=== PATIENT | female | born 1955 | race Caucasian/White ===

== ENCOUNTER → 2018-04-29 09:33 | Outpatient (CLI) | payer BC, SELFPAY ==
[2018-04-29 10:19] LABS: Alanine Aminotransferase 25 IU/L (9-52); Albumin 4.6 g/dL (3.5-5.0); Albumin Globulin Ratio 1.6 (1.0-2.8); Alkaline Phosphatase 46 U/L (38-126); Aspartate Aminotransferase 19 IU/L (14-36); BUN Creatinine Ratio 21.7 (6-22); Bilirubin Total 0.5 mg/dL (0.2-1.3); Blood Urea Nitrogen 13 mg/dL (7-17); Calcium 9.8 mg/dL (8.4-10.2); Carbon Dioxide 26 mmol/L (22-32); Chloride 99 mmol/L (98-107); Estimated Glomerular Filt Rate > 60.0 mL/min (>60); Globulin 2.9 g/dL (1.7-4.1); Glucose 151 mg/dL (80-110); HEMOLYSIS < 15 (0-50); Potassium 4.6 mmol/L (3.4-5.1); Sodium 140 mmol/L (137-145); Total Protein 7.5 g/dL (6.3-8.2)
[2018-04-29 11:34] LABS: Creatinine Urine Random 19.6 mg/dL
[2018-04-29 11:39] LABS: Microalbumi Creatinin Ratio Ur 40.8 ug/mg CR (<30); Microalbumin Urine Random 0.8 mg/dL (0-1.6)
== END ==
PROVIDERS: PCP Internal Medicine; Visit Provider Internal Medicine
DX: E78.2 Mixed hyperlipidemia (principal); E11.9 Type 2 diabetes mellitus without complications
CPT/HCPCS: 36415; 80053; 82043; 82570; 83036

== ENCOUNTER → 2018-10-21 08:41 | Outpatient (CLI) | payer BC, SELFPAY ==
--- NOTE | 2018-10-21 | DI.US.S_ITS ---
PROCEDURE: US ARTERIAL DUPLEX LE BI INDICATIONS: Peripheral vascular disease, unspecified TECHNIQUE: Color and pulse Doppler interrogation was performed of both lower extremity arterial systems, with image documentation. COMPARISON: None. FINDINGS: Normal-appearing, biphasic waveforms are seen throughout. Elevated flow velocities are seen at the level of the common femoral arteries measure 2 37 cm/s on the right and 203 cm/s on the left. The flow velocities are otherwise within normal limits. No focal area of increased flow velocity is seen to suggest a focal stenosis. Antegrade flow is confirmed to the distal aspects of each of the trifurcation vessels. No significant olson scale abnormality is seen. IMPRESSION: Elevated flow velocities can be seen at the level of the common femoral arteries, which are suspicious for inflow stenoses on both sides. Dictated by: Seth Barnett M.D. on 10/21/2018 at 14:11 Approved by: Seth Barnett M.D. on 10/21/2018 at 14:12
== END ==
PROVIDERS: PCP Internal Medicine; Visit Provider Physical Medicine & Rehabilitation
DX: I73.9 Peripheral vascular disease, unspecified (principal)
CPT/HCPCS: 93925

== ENCOUNTER 2018-10-22 08:45 | Outpatient (CLI) | payer BC, SELFPAY ==
[2018-10-22] VITALS (9 sets, daily range): BP systolic 87–139; BP diastolic 40–71; PULSE 79–86; RESP 16–18; TEMP 36.9; O2SAT 95–100
--- NOTE | 2018-10-22 08:46 | DI.RAD.S_ITS ---
PROCEDURE: PAIN L/S TRANSFORAMINAL INJECT INDICATIONS: INTERVERTEBRAL DISC DISPLACEMENT FINDINGS: Fluoroscopic spot filming was performed to verify placement of spinal needles at the L3-L4 level(s), as labeled on the films. Appropriate location(s) of the needle tip(s) was confirmed by injection of iodinated contrast. Dictated by: King Murillo M.D. on 10/22/2018 at 13:24 Approved by: King Murillo M.D. on 10/22/2018 at 13:24
[2018-10-22] MEDS: MIDAZOLAM 5 MG/5 ML VIAL IV (09:38)
[2018-10-22] MEDS: DEXAMETHASONE 10 MG/ML VIAL 20 MG INJ (09:41)
[2018-10-22] MEDS: methylPREDNISolone acetate 80 MG/ML VIAL INJ (09:41)
[2018-10-22] MEDS: IOPAMIDOL 15 ML VIAL 3 ML INJ (09:41)
[2018-10-22] MEDS: BUPIVACAINE 0.25% (PF) VIAL 2 ML INJ (09:41)
--- NOTE | 2018-10-22 09:44 | PC.NURSE ---
ASSISTING PT FROM TABLE AND TRANSPORTING BACK TO POST PROC AREA IN STABLE CONDITION
--- NOTE | 2018-10-22 09:48 | P.PCN_ITS ---
Procedures Date/Time Date of procedure: 10/22/18 Time of procedure: 09:47 General Procedure description: PROVIDER: Vick Blackmon DO Operative Note PREOP DIAGNOSIS 1. FORAMINAL STENOSIS WITH LE SYMPTOMS, POST OP DIAGNOSIS 1. FORAMINAL STENOSIS WITH LE SYMPTOMS, PROCEDURES 1. FLUOROSCOPICALLY GUIDED CONTRAST CONTROLLED TRANSFORAMINAL EPIDURAL STEROID INJECTION - LEFT L3/4 TFESI SURGEON: Vick Blackmon DO INDICATIONS Brittany is referred by Dr. Magana for treatment of Foraminal Stenosis with left LE Symptoms FINDINGS Foraminal Nerve Root Compression secondary to disc disease and facet hypertrophy DESCRIPTION OF PROCEDURE Following denial of allergy and review of potential side effects and complications, including, but not necessarily limited to, infection, allergic reaction, local tissue breakdown, stroke, temporary or permanent nerve injury, paralysis, and possible , the patient indicated that the patient understood and agreed to proceed. An informed consent document was signed by the patient, witnessed by a nurse, and placed in the patient's chart. Additionally, other treatment options including medications, modalities, and physical therapy were reviewed with the patient. After review of previous anaesthesic history and IV conscious sedation the patient was deemed safe to proceed with todays procedure with IV conscious sedation as ASA class II designation. Safety time-out was performed to confirm patient ID, procedure to be performed and site of procedure. IV sedation was accomplished with a combination of 5mg was administered by the RN after DO order , titrated to patient comfort during the course of the procedure while the patient remained responsive to all verbal commands In the prone position following sterile prep and drape of the lumbar region, the left L3/4 posterior neuroforamen was identified fluoroscopically. The skin was anesthetized via a 25-gauge 1.5-inch needle with 1% lidocaine solution. At this point, a 25-gauge 3.5-inch spinal needle was atraumatically introduced and advanced under fluoroscopic guidance through the posterior left L3/4 neuroforamen to approximately the anterior aspect of the canal. Depth was confirmed on lateral view. Following negative aspiration, injection of approximately 1.5 cc of Isovue 200 under live fluoroscopy in the AP view confirmed excellent flow along the nerve root, into the epidural space without vascular or intrathecal uptake observed Radiological data, including multiple fluoroscopic views of the lumbosacral spine, reveal a spinal needle at the left L3/4 posterior neuroforamen. Subsequent views show flow of contrast material flowing superiorly and inferiorly along the nerve root confirming epidural flow. Subsequently, a test dose of 1.5 cc of 1% lidocaine solution was administered and patient was observed for two minutes for signs or symptoms of complications , including abdominal pain, shortness of breath, bilateral upper or lower extremity weakness, nausea and vomiting, prior to steroid injection. At this point, a total of 3 cc or 20 mg of dexamethasone and 80mg Depo medrol was injected without incident. The patient tolerated the procedure well without signs or symptoms of complications prior to transfer to the recovery area continued monitoring without incident. The patient was then transferred to the recovery area where they were observed for an appropriate time after the injection. The patient reported a VAS score of 7 prior to the procedure and a post-procedure VAS of 0. Total Fluoroscopy Time: 24.2 seconds Total Conscious Sedation Time: 24min POST OP INSTRUCTIONS The patient was provided a Pain Log to continue to record their response to the target-specific procedure prior to follow-up visit with their referring physician. Additionally, specific post-injection care instructions and a contact number to our office were provided if concerns arise regarding possible complications associated with the procedure are suspected. Vick Blackmon, Complications: none
--- NOTE | 2018-10-22 10:45 | PC.NURSE ---
Received pt from Stacy Jiang post procedure, pt awake and alert, resumed monitoring. pt able to transfer from W/C to chair with standby assist.
== END 2018-10-22 10:20 ==
LOC: RAD 08:45
PROVIDERS: PCP Internal Medicine; Visit Provider Physical Medicine & Rehabilitation
DX: M48.061 Spinal stenosis, lumbar region without neurogenic claudication (principal); M51.16 Intervertebral disc disorders with radiculopathy, lumbar region
CPT/HCPCS: 64483; 99152; J1040; J1100; J2250

== ENCOUNTER → 2018-11-26 08:44 | Outpatient (CLI) | payer BC, SELFPAY ==
[2018-11-26 10:08] LABS: Alanine Aminotransferase 37 IU/L (9-52); Albumin 4.4 g/dL (3.5-5.0); Albumin Globulin Ratio 1.8 (1.0-2.8); Alkaline Phosphatase 57 U/L (38-126); Aspartate Aminotransferase 25 IU/L (14-36); BUN Creatinine Ratio 25.7 (6-22); Bilirubin Total 0.2 mg/dL (0.2-1.3); Blood Urea Nitrogen 18 mg/dL (7-17); Calcium 9.2 mg/dL (8.4-10.2); Carbon Dioxide 24 mmol/L (22-32); Chloride 104 mmol/L (98-107); Estimated Glomerular Filt Rate > 60.0 mL/min (>60); Globulin 2.5 g/dL (1.7-4.1); Glucose 125 mg/dL (80-110); HEMOLYSIS < 15 (0-50); Potassium 5.1 mmol/L (3.4-5.1); Sodium 140 mmol/L (137-145); Total Protein 6.9 g/dL (6.3-8.2)
[2018-11-26 10:14] LABS: Hemoglobin A1C% w Est Avg Glu 6.8 % (4.0-6.0)
== END ==
PROVIDERS: PCP Internal Medicine; Visit Provider Internal Medicine
DX: E11.9 Type 2 diabetes mellitus without complications (principal); I25.10 Atherosclerotic heart disease of native coronary artery without angina pectoris
CPT/HCPCS: 36415; 80053; 83036

== ENCOUNTER 2018-12-10 09:44 | Outpatient (CLI) | payer BC, SELFPAY ==
[2018-12-10] VITALS (8 sets, daily range): BP systolic 103–158; BP diastolic 58–90; PULSE 76–86; RESP 16–18; TEMP 37.2; O2SAT 98–100
--- NOTE | 2018-12-10 09:45 | DI.RAD.S_ITS ---
PROCEDURE: PAIN L INTERLAMINAR/CAUDAL INJ INDICATIONS: SPINAL STENOSIS FINDINGS: Fluoroscopic spot filming was performed to verify placement of spinal needles at the L3-4 interlaminar level, as labeled on the films. Appropriate location(s) of the needle tip(s) was confirmed by injection of iodinated contrast. IMPRESSION: Successful dorsal interlaminar L3-4 localization for epidural steroid injection. Dictated by: Peña Delatorre M.D. on 12/10/2018 at 12:48 Approved by: Peña Delatorre M.D. on 12/10/2018 at 12:48
[2018-12-10] MEDS: MIDAZOLAM 5 MG/5 ML VIAL IV (10:52)
[2018-12-10] MEDS: IOPAMIDOL 15 ML VIAL 3 ML INJ (10:56)
[2018-12-10] MEDS: methylPREDNISolone acetate 80 MG/ML VIAL INJ (10:56)
[2018-12-10] MEDS: BUPIVACAINE 0.25% (PF) VIAL 2 ML INJ (10:56)
[2018-12-10] MEDS: DEXAMETHASONE 10 MG/ML VIAL 20 MG INJ (10:56)
--- NOTE | 2018-12-10 10:56 | PC.NURSE ---
ASSISTING PT OFF TABLE AND TRANSPORTING TO POST PROC AREA IN STABLE CONDITION
--- NOTE | 2018-12-10 11:05 | P.PCN_ITS ---
Procedures Date/Time Date of procedure: 12/10/18 Time of procedure: 11:03 General Procedure description: POST OP DIAGNOSIS 1. HNP WITH RADICULAR FEATURES, 2. MULTILEVEL CENTRAL STENOSIS, PROCEDURES 1. FLUORSCOPICALLY GUIDED CONTRAST CONTROLLED INTERLAMINAR EPIDURAL STEROID INJECTION - L3/4 PHYSICIAN: Vick Blackmon DO INDICATIONS Brittany is referred by Dr. Brito for treatment of HNP with Left LE symptoms. FINDINGS Multilevel Central Spinal Stenosis with Nerve Root Compression DESCRIPTION OF PROCEDURE Fluoroscopically guided, contrast-controlled L3/4 translaminar epidural steroid injection. Following denial of allergy and review of potential side effects and complications, including, but not necessarily limited to, infection, allergic reaction, local tissue breakdown, temporary as well as permanent nerve injury, paralysis, stroke and possible , the patient indicated that the patient understood and agreed to proceed. An informed consent document was signed by the patient, witnessed by a nurse, and placed in the patient's chart. Additionally, other treatment options including modalities, medications, and physical therapy were reviewed with the patient. After review of previous anaesthesic history and IV conscious sedation the patient was deemed safe to proceed with todays procedure with IV conscious sedation as ASA class II designation. Safety time-out was performed to confirm patient ID, procedure to be performed and site of procedure. IV sedation was accomplished with a combination of 3mg of Versed was administered by the RN after DO order, titrated to patient comfort during the course of the procedure while the patient remained responsive to all verbal commands. In the prone position, following sterile prep and drape of the lumbar region, the L3/4 translaminar space was identified fluoroscopically. The skin was anesthetized via a 25-gauge, 1.5-inch needle with 1% lidocaine solution. At this point, a 22-gauge short bevel spinal needle was atraumatically introduced and advanced under fluoroscopic guidance into the region of the L3/4 translaminar space. Depth was confirmed on lateral view. Radiological data, including multiple fluoroscopic views of the lumbar spine, reveal a spinal needle at the L3/4 translaminar space. Lateral views then show placement of the needle in the epidural space. Subsequent views show contrast material flowing superiorly and inferiorly in the epidural space. No vascular or intrathecal uptake is observed. At this point, using loss of resistance technique with saline and air, the epidural space was entered. This was confirmed following negative aspiration with injection of approximately 1.5 cc of Isovue 200, showing excellent epidural flow without vascular or intrathecal uptake. At this point, 1 cc of 1 % lidocaine solution combined with 3 cc or 20 mg of dexamethasone and 80mg Depo medrol was injected without incident. The patient tolerated the procedure well without signs or symptoms of complications prior to transfer to the recovery area continued monitoring without incident. The patient was then transferred to the recovery area where they were observed for an appropriate period of time after the injection. The patient reported a VAS score of 11 prior to the procedure and a post- procedure VAS of 0. Total Fluoroscopy Time: 11.8 seconds Total Conscious Sedation Time: 24min POST OP INSTRUCTIONS The patient was provided a Pain Log to continue to record their response to the target-specific procedure prior to follow-up visit with their referring physician. Additionally, specific post-injection care instructions and a contact number to our office were provided if concerns arise regarding possible complications associated with the procedure are suspected. Vick Blackmon, Complications: none
--- NOTE | 2018-12-10 11:54 | PC.NURSE ---
pt returned via wheelchair from procedure with Stacy ALEXIS, able to move from W/C to chair standby assist. Resumed monitoring.
== END 2018-12-10 11:25 ==
LOC: RAD 09:44
PROVIDERS: PCP Internal Medicine; Visit Provider Physical Medicine & Rehabilitation
DX: M51.16 Intervertebral disc disorders with radiculopathy, lumbar region (principal); M48.061 Spinal stenosis, lumbar region without neurogenic claudication
CPT/HCPCS: 62323; 99152; J1040; J1100; J2250

== ENCOUNTER → 2019-04-08 11:00 | Outpatient (CLI) | payer BC, SELFPAY ==
--- NOTE | 2019-04-08 | DI.MRI.S_ITS ---
PROCEDURE: MR SHOULDER LT WO CON INDICATIONS: LEFT SHOULDER PAIN LOW BACK PAIN TECHNIQUE: Noncontrast oblique coronal T2 fast spin echo with fat saturation, oblique sagittal T1 spin echo and T2 fast spin echo with fat saturation, axial T1 spin echo and T2 fast spin echo with fat saturation through the shoulder. COMPARISON: None. FINDINGS: Image quality: Excellent. Rotator cuff: Tendinosis and low to moderate grade articular and bursal surface partial-thickness tear involving distal supraspinatus and infraspinatus at their insertion on the greater tuberosity of humeral head is seen extending to musculotendinous junction. There is distal subscapularis tendinosis. Sagittal images demonstrate mild to moderate supraspinatus muscle atrophy. Bones and bursae: No bone marrow contusions or fractures. Mild to moderate acromioclavicular joint and glenohumeral joint osteoarthritis is seen. Downward osteophyte formation at the acromioclavicular joint is seen depressing on musculotendinous junction of supraspinatus.. No pathologic subacromial-subdeltoid or subcoracoid bursal fluid is present. Capsule and soft tissues: In the absence of intra-articular contrast, there is suggestion of superior labral tear at 11 to 1:00 position. Degenerative changes throughout labrum is noted. The glenohumeral ligaments appear intact. The long head of the biceps tendon demonstrates normal location and morphology. The rotator interval appears normal, without fibrosis. The coracohumeral ligament is normal in thickness. IMPRESSION: 1. [id number] acromioclavicular joint and glenohumeral joint osteoarthritis. 2. Tendinosis and low to moderate grade articular and bursal surface partial-thickness tear involving distal supraspinatus and infraspinatus at their insertion on greater tuberosity of humeral head extending to musculotendinous junction. Distal subscapularis tendinosis. Mild to moderate supraspinatus muscle atrophy. 3. Degenerative changes throughout labrum with suggestion of superior labral tear at 11 to 1:00 position. Dictated by: Mc Carey M.D. on 04/08/2019 at 12:43 Approved by: Mc Carey M.D. on 04/08/2019 at 14:37
--- NOTE | 2019-04-08 | DI.MRI.S_ITS ---
PROCEDURE: MR LUMBAR SPINE WO CON INDICATIONS: LEFT SHOULDER PAIN LOW BACK PAIN TECHNIQUE: Noncontrast sagittal T1 spin echo and T2 fast echo, sagittal STIR, axial T1 and T2 fast spin echo through the lumbar spine. In cases with scoliosis, additional coronal T2 fast spin echo may be performed. COMPARISON: [facility], , L-SPINE WITHOUT CONTRAST, 05/13/2017, 7:36. FINDINGS: Image quality: Excellent. Alignment and Curvature: There is straightening of the normal lumbar lordosis. No spondylolisthesis. Bone Marrow: Marrow is of normal overall signal. No acute vertebral body compression fractures. Spinal Cord: Conus medullaris terminates at the T12-L1 level. Visualized cord demonstrates normal signal and size. Paraspinous Soft Tissues: No paravertebral masses. L1-L2: Normal appearance. L2-L3: Decreased intervertebral disc space and disc desiccation signals are seen. There is broad-based disc bulge and bilateral facet arthrosis with hypertrophy of ligamentum flavum causing moderate central canal stenosis and bilateral neuroforaminal narrowing. There is likely compression of exiting left L2 nerve root. L3-L4: Degenerative endplate changes and disc desiccation is seen. Diffuse disc bulge and superimposed left lateral disc herniation is seen with bilateral facet arthrosis. There is mild to moderate central canal stenosis and left worse than right bilateral neuroforaminal narrowing. There is also compression of exiting left L3 nerve root. L4-L5: Disc desiccation signal is seen. Broad-based disc bulge and bilateral facet arthrosis is noted with mild to moderate central canal stenosis and right worse than left bilateral neuroforaminal narrowing. There is compression of bilateral exiting L4 nerve roots. L5-S1: Diffuse disc bulge and bilateral facet arthrosis is seen. No significant canal stenosis or neuroforaminal narrowing. IMPRESSION: 1. Degenerative disc bulge and bilateral facet arthrosis at L2-3 through L5-S1 levels causing mild to moderate central canal stenosis and bilateral neuroforaminal narrowing as described above more prominent at L2-3 and L3-4 levels. 2. No marrow edema. No acute compression fracture or spondylolisthesis. Dictated by: Mc Carey M.D. on 04/08/2019 at 14:39 Approved by: Mc Carey M.D. on 04/08/2019 at 14:41
== END ==
PROVIDERS: PCP Internal Medicine; Referring Provider Orthopaedic Surgery; Visit Provider Orthopaedic Surgery
DX: M54.5 Low back pain (principal); M25.512 Pain in left shoulder; M19.012 Primary osteoarthritis, left shoulder; M75.112 Incomplete rotator cuff tear or rupture of left shoulder, not specified as traumatic; M51.36 Other intervertebral disc degeneration, lumbar region; M48.061 Spinal stenosis, lumbar region without neurogenic claudication; M51.37 Other intervertebral disc degeneration, lumbosacral region; M48.07 Spinal stenosis, lumbosacral region; M47.816 Spondylosis without myelopathy or radiculopathy, lumbar region; M47.817 Spondylosis without myelopathy or radiculopathy, lumbosacral region
CPT/HCPCS: 72148; 73221

== ENCOUNTER → 2019-05-14 09:27 | Outpatient (CLI) | payer BC, SELFPAY ==
[2019-05-14 11:13] LABS: Hemoglobin A1C% w Est Avg Glu 6.7 % (4.0-6.0)
[2019-05-14 11:25] LABS: Alanine Aminotransferase 20 IU/L (9-52); Albumin 4.3 g/dL (3.5-5.0); Albumin Globulin Ratio 1.7 (1.0-2.8); Alkaline Phosphatase 44 U/L (38-126); Aspartate Aminotransferase 24 IU/L (14-36); BUN Creatinine Ratio 16.3 (6-22); Bilirubin Total 0.4 mg/dL (0.2-1.3); Blood Urea Nitrogen 13 mg/dL (7-17); Calcium 9.1 mg/dL (8.4-10.2); Carbon Dioxide 23 mmol/L (22-32); Chloride 104 mmol/L (98-107); Cholesterol 139 mg/dL (140-199); Estimated Glomerular Filt Rate > 60.0 mL/min (>60); Globulin 2.6 g/dL (1.7-4.1); Glucose 136 mg/dL (80-110); HDL Cholesterol 40 mg/dL (40-60); HEMOLYSIS 17 (0-50); LDL Cholesterol Calculated 39 mg/dL (<100); Potassium 5.3 mmol/L (3.4-5.1); Sodium 138 mmol/L (137-145); Total Protein 6.9 g/dL (6.3-8.2); Triglycerides 301 mg/dL (35-150)
== END ==
PROVIDERS: PCP Internal Medicine; Visit Provider Internal Medicine
DX: E11.9 Type 2 diabetes mellitus without complications (principal); E78.2 Mixed hyperlipidemia; I25.10 Atherosclerotic heart disease of native coronary artery without angina pectoris
CPT/HCPCS: 36415; 80053; 80061; 83036

== ENCOUNTER → 2019-06-04 14:21 | Outpatient (CLI) | payer BC, SELFPAY ==
[2019-06-04 15:01] LABS: Add Manual Diff / Slide Review NO; Basophils Absolute Auto 0 /uL (0-100); Basophils Percent Auto 0.4 % (0-2); Eosinophils Absolute Auto 300 /uL (0-450); Hematocrit 34.3 % (36-46); Lymphocytes Absolute Auto 4700 /uL (1100-4500); Lymphocytes Percent Auto 35.9 % (25-40); Mean Corpuscular HGB Conc 32.1 % (30-36); Mean Corpuscular Hemoglobin 29.2 PG (26-34); Mean Corpuscular Volume 90.7 fL (80-100); Monocytes Absolute Auto 800 /uL (0-900); Neutrophils Absolute Auto 7200 /uL (1500-7000); Neutrophils Percent Auto 55.7 % (50-75); Platelet Count 273 X10^3/uL (150-400); Red Blood Cell Count 3.78 X10^6/uL (4.0-5.2); Red Cell Distribution Width 13.3 % (11.6-14.8)
[2019-06-04 15:16] LABS: BUN Creatinine Ratio 27.1 (6-22); Blood Urea Nitrogen 19 mg/dL (7-17); Calcium 9.5 mg/dL (8.4-10.2); Carbon Dioxide 21 mmol/L (22-32); Chloride 105 mmol/L (98-107); Estimated Glomerular Filt Rate > 60.0 mL/min (>60); Glucose 145 mg/dL (80-110); HEMOLYSIS < 15 (0-50); Potassium 5.2 mmol/L (3.4-5.1); Sodium 139 mmol/L (137-145)
== END ==
PROVIDERS: Family Provider Internal Medicine; PCP Internal Medicine; Visit Provider Physician Assistant Medical
DX: Z01.818 Encounter for other preprocedural examination (principal)
CPT/HCPCS: 36415; 80048; 85025; 93005

== ENCOUNTER 2019-06-11 06:11 | Day surgery (SDC) | payer BC, SELFPAY ==
[2019-05-28 12:16] VITALS: BMI 26.8
[2019-06-11] VITALS (7 sets, daily range): BP systolic 100–150; BP diastolic 40–80; PULSE 76–106; RESP 15–22; TEMP 36.2–36.4; O2SAT 94–97; BMI 26.2
[2019-06-11] MEDS: LACTATED RINGERS 1,000 ML 42 ML IV (06:45)
[2019-06-11] MEDS: MIDAZOLAM 2 MG/2 ML VIAL IV (07:43)
[2019-06-11] MEDS: fentaNYL 100 MCG/2 ML INJ 50 MCG IV (07:46)
--- NOTE | 2019-06-11 07:58 | PM.PREOP ---
Pre-operative Note Interval Note History & Physical reviewed/Exam performed by Physician: Yes Changes to H&P: No
[2019-06-11] MEDS: CEFAZOLIN 2 GM/100 ML FROZ.PIGGY IV (08:00)
--- NOTE | 2019-06-11 08:00 | SUR.PREOP ---
Block start time [0740] . Monitoring initiated and maintained throughout procedure. Oxygen and medications given per anesthesiologist instructions. Patient remained stable throughout procedure, no adverse reactions noted. Block end time [0753]. Pt to OR in stable condition.
--- NOTE | 2019-06-11 08:38 | SUR.OPER ---
Beach chair with Shivani/Shiva shoulder positioner. Lower body on padded OR bed. Head in foam padded head cradle, secured with straps. Non-operative arm secured <90 degrees abduction. Pillow under knees. Safety belt at thigh. Cloth tape over blanket over lower legs.
[2019-06-11] MEDS: BUPIVACAINE 0.5% W/ EPI (PF) VIAL 30 ML INJ (08:50)
[2019-06-11] MEDS: SODIUM CHLORIDE IRRIG SOLUTION 3,000 ML, EPINEPHrine 1 MG IRR (08:54)
[2019-06-11] MEDS: INSULIN ASPART 100 UNIT/ML 10ML VIAL SUBCUT (10:19)
--- NOTE | 2019-06-11 10:20 | PM.OP.1 ---
Operative Date/Time/Diagnoses Date of procedure: 06/11/19 Time of procedure: 08:00 Pre-op diagnosis: Left shoulder partial rotator cuff tear Post-op diagnosis: same Procedure & Clinicians Procedure: Left shoulder arthroscopic subacromial decompression with distal clavicle excision. Arthroscopic extensive debridement and partial rotator cuff repair. Same procedure as scheduled: Yes Indications: Patient with a partial rotator cuff tear and signs of impingement unresponsive to conservative treatment. Surgeon: Shamar Blanchard Quilting Supervisor: Betsy Andrade Anesthesia Type: General and Peripheral nerve block Operative Notes Findings: High-grade articular sided partial rotator cuff tear. Significant tearing of the labrum and almost 360 degree fashion with the majority of the labrum being pulled off the glenoid. Signs of a previous proximal biceps rupture with the remaining tissue still attached to the bicipital anchor. Some early stage arthritic changes to the glenohumeral joint but no sign of full-thickness cartilage loss. No loose bodies. Significant bursitis in the subacromial and subdeltoid space. Closure Type: primary Specimen(s): none sent Applied: implant(s) Estimated Blood Loss (mL): 10 Blood products transfused: none Procedure in detail: On date of service, Patient was met in the holding area. The operative site was signed and witnessed by the OR staff. The surgeries once again discussed with the patient and any remaining questions they had were answered fully. Patient was taken back to the operating theater and placed on the operating table in a supine position. Great care was taken to ensure that all bony prominences were properly padded. Patient was then placed into the beach chair position. The head and neck were properly positioned and secured. A timeout was performed verifying patient's name, procedure, and the operative site. The upper extremity was then prepped and draped in the normal sterile fashion. Previously, the bony anatomy and portal sites were marked out as well as injected with Marcaine with epinephrine. An 11 blade was used to make an incision in the posterior aspect of the shoulder. The camera was placed, and a diagnostic shoulder scope was performed. Findings listed above. Next under direct visualization, a anterior portal was made. Extensive debridement of the glenohumeral joint was performed. As stated above patient had extensive tearing of the labrum and signs of a previous proximal biceps rupture with residual tissue in the joint. We also debrided the partial articular sided rotator cuff tear. This was then tagged with suture material so we could find the exact same spot on the bursal side. Next the camera was placed into the subacromial space. A lateral portal was obtained under direct visualization. A combination of the shaver and vapor wand, a debridement of the inflamed tissue as well as inflamed bursa was performed. The lateral gutter was also cleaned out. This gave us good visualization of the bursal aspect of the rotator cuff as well as the acromial arch. There was an obvious impingement lesion in the acromial arch. Next we turned our attention to the subacromial decompression. Next, a mechanical rasp was then used to do a subacromial decompression. This allowed us to convert the acromion to a type I acromial. This also allowed us to shave down the bony lesion in the acromial space. The rasp was placed into the lateral portal as well as the anterior portal in order to do a complete subacromial decompression. We next turned our attention to the distal clavicle. Using the shaver in the vapor wand we were able to clean out all the soft tissue around the distal clavicle as well as into the a.c. joint. This gave us good visualization of the arthritic changes to the distal clavicle as well as good of the a.c. joint allowing us to assess our distal clavicle excision. Of the inferior osteophytes coming off the distal clavicle. Using the mechanical rasp in the anterior portal, we were able to remove the inferior osteophytes as well as do a distal clavicle excision. The camera was then placed into the anterior portal which gave us a direct visualization of the a.c. joint allowing us to assess the distal clavicle excision. We then turned our attention to the rotator cuff tear. Camera was placed back into the glenohumeral joint. Two suture tacks were placed spanning the region of partial tearing. Once the anchors were inserted camera was back into the subacromial space where we could see the suture material. One strand from each anchor was pulled out through a cannula. This was tied into a non sliding knot. The remaining sutures were then used to pull this back into the shoulder anchoring the knot across partial tear. Next, the 2 remaining sutures which were 1 limb from each anchor were then pulled out through the cannula and then placed into a SwiveLock anchor. This anchor was then inserted laterally providing a tenodesis and anchoring of the partial rotator cuff tear. Shoulder was taken through range of motion and re-evaluated. There was good fixation of the partial tear and no other abnormalities noted. There had been good decompression of the subacromial space as well as the distal clavicle. Shoulder was cleaned dried dressed and patient was taken to the PACU in stable condition. Complications: none Condition: stable Disposition: PACU Plan for aftercare: Sling for the next 6 weeks. Patient will follow our postoperative protocol for partial rotator cuff repair.
== END 2019-06-11 11:20 | disposition home or self-care (01) ==
PROVIDERS: Family Provider Internal Medicine; PCP Internal Medicine; Visit Provider Orthopaedic Surgery
PROC: (CPT 29827; principal; 2019-06-11 07:45)
DX: M75.112 Incomplete rotator cuff tear or rupture of left shoulder, not specified as traumatic (principal); M75.42 Impingement syndrome of left shoulder; M19.012 Primary osteoarthritis, left shoulder; G89.18 Other acute postprocedural pain; I25.10 Atherosclerotic heart disease of native coronary artery without angina pectoris; J45.909 Unspecified asthma, uncomplicated; E11.43 Type 2 diabetes mellitus with diabetic autonomic (poly)neuropathy; Z79.84 Long term (current) use of oral hypoglycemic drugs; I25.2 Old myocardial infarction; M79.7 Fibromyalgia; M75.52 Bursitis of left shoulder
CPT/HCPCS: 29827; 29824; 29826; 29823; 64415; J0171; J0690; J2250; J2405; J2704; J3010

== ENCOUNTER → 2019-08-20 13:33 | Outpatient (CLI) | payer BC, SELFPAY ==
--- NOTE | 2019-08-20 | DI.MRI.S_ITS ---
PROCEDURE: MR SHOULDER LT W CON INDICATIONS: SHOULDER PAIN TECHNIQUE: After the administration of 12 mL of dilute intra-articular Gadolinium contrast, oblique coronal T1 and T2 spin echo with fat saturation, oblique sagittal T1 spin echo with and without fat saturation, oblique sagittal T2 fast spin echo with fat saturation, axial T1 spin echo with fat saturation through the shoulder. COMPARISON: None. FINDINGS: Image quality: Mild susceptibility artifacts are noted in superior and lateral left shoulder from prior rotator cuff tendon repair. Rotator cuff: Patient is status post prior rotator cuff tendon repair. There is suggestion of tendinosis and low-grade articular and bursal surface partial-thickness tear involving distal supraspinatus. There is suggestion of full-thickness perforation involving most anterior fibers of the distal supraspinatus near its insertion the humeral head with contrast is seen extending into the subacromial subdeltoid bursa. Distal infraspinatus tendinosis is seen. Distal subscapularis tendon is intact. Mild supraspinatus muscle atrophy is seen on sagittal images. Bones and bursae: Post surgical changes are seen in the acromioclavicular joint. No fracture or dislocation. No marrow edema. Postsurgical changes also noted in greater tuberosity of humeral head. Capsule and soft tissues: There is focal area of contrast extension in superior anterior labrum at 12 to 1:00 position concerning for focal superior anterior labral tear. The glenohumeral ligaments appear intact. The long head of the biceps tendon demonstrates normal location and morphology. The rotator interval appears normal, without fibrosis. The coracohumeral ligament is of normal thickness. No intra-articular bodies. IMPRESSION: 1. Tendinosis and low-grade articular and bursal surface partial-thickness involving distal supraspinatus at its insertion the humeral head. There is suggestion of focal full-thickness perforation involving most anterior fibers of distal supraspinatus near its insertion on humeral head. Mild supraspinatus muscle atrophy. 2. Distal infraspinatus tendinosis. 3. Post surgical changes from rotator cuff tendon repair are seen in the acromioclavicular joint and humeral head. No acute fracture or dislocation. 4. Finding is suspicious focal superior anterior labral tear at 12 to 1:00 position. Dictated by: Mc Carey M.D. on 08/20/2019 at 15:35 Approved by: Mc Carey M.D. on 08/20/2019 at 15:39
--- NOTE | 2019-08-20 | DI.RAD.S_ITS ---
PROCEDURE: FL SHOULDER INJECTION MR/CT LT INDICATIONS: LEFT SHOULDER PAIN TECHNIQUE: The indications, alternatives, benefits, risks, and complications of the procedure were explained to the patient. Written informed consent was obtained and placed in the chart. The shoulder was examined fluoroscopically and a site for needle placement chosen for entry into the glenohumeral joint from an anterior approach. The skin was prepped and draped in a sterile fashion, and 1% lidocaine infiltrated from skin down to joint capsule. A spinal needle was inserted into the glenohumeral joint, and a small amount of iodinated contrast media injected to confirm intra-articular placement of the needle tip. This was followed by approximately 12 mL dilute solution of a gadolinium containing MR contrast agent. The needle was removed and a dressing was applied. The patient was given postprocedural instructions and sent to the MR suite for MR imaging. FINDINGS: A single fluoroscopic spot image demonstrates intra-articular location of injected iodinated contrast. IMPRESSION: Successful fluoroscopically guided administration of dilute Gadolinium solution into the shoulder joint for MR arthrogram. Dictated by: Viviana Cordova M.D. on 08/20/2019 at 14:56 Approved by: Viviana Cordova M.D. on 08/20/2019 at 14:56
== END ==
PROVIDERS: Family Provider Internal Medicine; PCP Internal Medicine; Visit Provider Orthopaedic Surgery
DX: M25.512 Pain in left shoulder (principal); M62.512 Muscle wasting and atrophy, not elsewhere classified, left shoulder
CPT/HCPCS: 23350; 73222; 77002

== ENCOUNTER 2019-08-27 10:17 | Outpatient (CLI) | payer BC, SELFPAY ==
[2019-08-27] VITALS (9 sets, daily range): BP systolic 119–147; BP diastolic 50–92; PULSE 92–106; RESP 14–16; TEMP 36.8; O2SAT 95–100
--- NOTE | 2019-08-27 10:19 | DI.RAD.S_ITS ---
PROCEDURE: PAIN L/S TRANSFORAMINAL INJECT INDICATIONS: INTERVERTEBRAL DISC DISPLACEMENT FINDINGS: Fluoroscopic spot filming was performed to verify placement of spinal needles at the left L3-L4 neural foramen region, as labeled on the films. Appropriate location(s) of the needle tip(s) was confirmed by injection of iodinated contrast. IMPRESSION: Successful left L3-L4 needle tip localization for transforaminal epidural steroid injection. Dictated by: Peña Delatorre M.D. on 08/27/2019 at 13:28 Approved by: Peña Delatorre M.D. on 08/27/2019 at 13:28
[2019-08-27] MEDS: fentaNYL 100 MCG/2 ML INJ 50 MCG IV (11:00)
[2019-08-27] MEDS: MIDAZOLAM 5 MG/5 ML VIAL IV (11:02)
[2019-08-27] MEDS: BETAMETHASONE 30 MG/5 ML MDV 6 MG INJ (11:09)
[2019-08-27] MEDS: IOPAMIDOL 15 ML VIAL 3 ML INJ (11:09)
[2019-08-27] MEDS: DEXAMETHASONE 10 MG/ML VIAL 20 MG INJ (11:10)
[2019-08-27] MEDS: BUPIVACAINE 0.25% (PF) VIAL 2 ML INJ (11:10)
--- NOTE | 2019-08-27 11:21 | P.PCN_ITS ---
Procedures Date/Time Date of procedure: 08/27/19 Time of procedure: 11:21 General Procedure description: PROVIDER: Vick Blackmon DO Operative Note PREOP DIAGNOSIS 1. FORAMINAL STENOSIS WITH LE SYMPTOMS, POST OP DIAGNOSIS 1. FORAMINAL STENOSIS WITH LE SYMPTOMS, PROCEDURES 1. FLUOROSCOPICALLY GUIDED CONTRAST CONTROLLED TRANSFORAMINAL EPIDURAL STEROID INJECTION - LEFT L3/4 TFESI SURGEON: Vick Blackmon DO INDICATIONS Brittany is referred by for treatment of Foraminal Stenosis with left LE Symptoms FINDINGS Foraminal Nerve Root Compression secondary to disc disease and facet hypertrophy DESCRIPTION OF PROCEDURE Following review of allergy and review of potential side effects and complications, including, but not necessarily limited to, infection, allergic reaction, local tissue breakdown, stroke, temporary or permanent nerve injury, paralysis, and possible , the patient indicated that the patient understood and agreed to proceed. An informed consent document was signed by the patient, witnessed by a nurse, and placed in the patient's chart. Additionally, other treatment options including medications, modalities, and physical therapy were reviewed with the patient. After review of previous anaesthesic history and IV conscious sedation the patient was deemed safe to proceed with todays procedure with IV conscious sedation as ASA class II designation. Safety time-out was performed to confirm patient ID, procedure to be performed and site of procedure. IV sedation was accomplished with a combination of 4mg of Versed and 50mcg of Fentanyl was administered by the RN after DO order, titrated to patient comfort during the course of the procedure while the patient remained responsive to all verbal commands In the prone position following sterile prep and drape of the lumbar region, the left L3/4 posterior neuroforamen was identified fluoroscopically. The skin was anesthetized via a 25-gauge 1.5-inch needle with 1% lidocaine solution. At this point, a 25-gauge 3.5-inch spinal needle was atraumatically introduced and advanced under fluoroscopic guidance through the posterior left L3/4 neuroforamen to approximately the anterior aspect of the canal. Depth was confirmed on lateral view. Following negative aspiration, injection of approximately 1.5 cc of Isovue 200 under live fluoroscopy in the AP view confirmed excellent flow along the nerve root, into the epidural space without vascular or intrathecal uptake observed Radiological data, including multiple fluoroscopic views of the lumbosacral spine, reveal a spinal needle at the left L3/4 posterior neuroforamen. Subsequent views show flow of contrast material flowing superiorly and inferiorly along the nerve root confirming epidural flow. Subsequently, a test dose of 1.5 cc of 1% lidocaine solution was administered a nd patient was observed for two minutes for signs or symptoms of complications, including abdominal pain, shortness of breath, bilateral upper or lower extremity weakness, nausea and vomiting, prior to steroid injection. At this point, a total of 3cc or 20mg of dexamethasone and 6mg betamethasone was injected without incident. The patient tolerated the procedure well without signs or symptoms of complications prior to transfer to the recovery area continued monitoring without incident. The patient was then transferred to the recovery area where they were observed for an appropriate time after the injection. The patient reported a VAS score of 7 prior to the procedure and a post-procedure VAS of 0. Total Fluoroscopy Time: 24.2 seconds Total Conscious Sedation Time: 24min POST OP INSTRUCTIONS The patient was provided a Pain Log to continue to record their response to the target-specific procedure prior to follow-up visit with their referring physician. Additionally, specific post-injection care instructions and a contact number to our office were provided if concerns arise regarding possible complications associated with the procedure are suspected. Vick Blackmon, Complications: none
--- NOTE | 2019-08-27 11:24 | PC.NURSE ---
ACCEPTED CARE OF PT IN POST PROC IN STABLE CONDITION
--- NOTE | 2019-08-27 11:27 | PC.NURSE ---
Post Procedure note: Patient tolerated procedure well. VSS throughout. HR 90-106. O2 sat WNL on 2L/BOBBIN STRIPPER. Sat up from procedure table and transfered to wheelchair without difficulties. Denied any numbness or tingling to lower extremities. Pain level 1/10. Transported to post procedure monitoring. Handoff report given to Maximilian Montez RN.
== END 2019-08-27 11:44 | disposition home or self-care (01) ==
LOC: RAD 10:18
PROVIDERS: Family Provider Internal Medicine; PCP Internal Medicine; Visit Provider Physical Medicine & Rehabilitation
DX: M48.061 Spinal stenosis, lumbar region without neurogenic claudication (principal); M51.16 Intervertebral disc disorders with radiculopathy, lumbar region
CPT/HCPCS: 64483; 99152; J0702; J1100; J2250; J3010

== ENCOUNTER 2019-10-07 12:15 | Outpatient (RCR) | payer BC, SELFPAY ==
--- NOTE | 2019-06-16 10:50 | PT.OPPOC ---
Current Diagnoses Primary osteoarthritis, left shoulder (06/22/19) Pain in left shoulder (06/22/19) Impingement syndrome of left shoulder (06/22/19) Weakness (06/22/19) Encounter for other orthopedic aftercare (06/22/19) Provider Visit Care Team Role Provider Type Jose Brito MD Family Provider Physician Primary Care Provider Specialty: Internal Medicine Address: [address] [place] [address], [id number] Email: [email or web address] Shamar Blanchard MD Attending Provider Physician Specialty: Orthopedic Surgery Address: [address] [place] [address], [id number] Email: [email or web address] Plan Of Care PT-OP-T Assessment and Plan Start: 06/16/19 13:49 Freq: Status: Active Protocol: Document 06/22/19 09:26 [facility] (Rec: 06/22/19 10:50 [facility] [id number]) Physical Therapy Assessment Goals Four Impairment functional activities. Three Impairment strength Two Impairment ROM One Impairment pain Plan of Care Dates Plan of Care Start Date 06/16/19 Plan of Care End Date 09/16/19 Please Sign and Return: I have reviewed this Plan of Care and certify that the skilled therapy services above are required to meet the patient?s needs. Physician Signature Date Printed Name and Credentials Clinical Instructor Signature Printed Name and Credentials
--- NOTE | 2019-06-16 15:30 | PT.OPPOC ---
Current Diagnoses Primary osteoarthritis, left shoulder (06/16/19) Pain in left shoulder (06/16/19) Impingement syndrome of left shoulder (06/16/19) Weakness (06/16/19) Encounter for other orthopedic aftercare (06/16/19) Provider Visit Care Team Role Provider Type Jose Brito MD Family Provider Physician Primary Care Provider Specialty: Internal Medicine Address: [address] [place] [address], [id number] Email: [email or web address] Shamar Blanchard MD Attending Provider Physician Specialty: Orthopedic Surgery Address: [address] [place] [address], [phone] Email: [email or web address] Plan Of Care PT-OP-T Assessment and Plan Start: 06/16/19 13:49 Freq: Status: Active Protocol: Document 06/16/19 15:03 [facility] (Rec: 06/19/19 15:27 [facility] [id number]) Physical Therapy Assessment Rehab Potential Rehabilitation Potential Good Evaluation Complexity Number of Personal Factors/Comorbidities 3 or More Number of Body Systems Impaired 3 Clinical Presentation at Evaluation Evolving Impairments Impairments Functional Activities Pain ROM Strength Goals Four Impairment functional activities. Three Impairment strength Two Impairment ROM One Impairment pain Assessment Summary Assessment Patient presents s/p left shoulder surgery wearing sling appropriately, post-op dressing in place, scheduled to return to surgeon 06/22/19. Detailed protocol available and was reviewed with patient. Instructed in HEP per protocol with written instructions issued. Patient education regarding posture and pain management including icing of shoulder after exercises and when painful provided. Patient is highly receptive and demonstrated good understanding of all of the above. Denied N/T, no swelling evident in hand, no signs or symptoms of infection . Patient indicates won't be able to help her with PROM exercises. Patient will benefit from skilled PT to help her rehab her left shoulder and return to full functional use of her left UE. Physical Therapy Plan Frequency and Duration Frequency of Treatment 2x/Week Duration of Treatment 12 wks Plan of Care Start Date 06/16/19 Plan of Care End Date 09/16/19 Therapeutic Interventions Therapeutic Interventions Aquatic Therapy Home Exercise Program Manual Therapy Neuromuscular Re-education Self-Care/Home Management Soft Tissue Mobilization Taping Therapeutic Activities Therapeutic Exercises Modalities Cold Pack/Ice Massage Electric Stimulation Hot Packs Next Visit Focus/Plan Next Note Type Treatment Note Next Visit Plan Review results of physician appointment, HEP and protocol. PROM left shoulder, further postural education and training, gentle soft tissue mobilizaiton, ice. Consider IFES for pain management as indicated. Plan of Care Dates Plan of Care Start Date 06/16/19 Plan of Care End Date 09/16/19 Please Sign and Return: I have reviewed this Plan of Care and certify that the skilled therapy services above are required to meet the patient?s needs. Physician Signature Date Printed Name and Credentials Clinical Instructor Signature Printed Name and Credentials
--- NOTE | 2019-06-16 15:30 | PT.OIE ---
Current Diagnoses Primary osteoarthritis, left shoulder (06/16/19) Pain in left shoulder (06/16/19) Impingement syndrome of left shoulder (06/16/19) Weakness (06/16/19) Encounter for other orthopedic aftercare (06/16/19) Past Medical History (Last Updated 06/05/19 @ 09:40 by Carla Grant RN) Type 2 diabetes mellitus without complication (Chronic) CAD (coronary atherosclerotic disease) (Chronic ~1998) Mixed hyperlipidemia (Chronic) GERD (gastroesophageal reflux disease) (Chronic) Unspecified asthma (Chronic) Recurrent major depressive disorder, in full remission (Chronic) Back pain (Chronic 03/19/14) Diabetic peripheral neuropathy (Chronic 11/10/15) Fibromyalgia (Chronic 03/12/17) Herniated disc (Acute) Myocardial infarction (Acute ~1998) Hypertension (Chronic) Past Surgical History (Last Reviewed 06/03/19 @ 09:00 by Vick Blackmon DO) Surgical procedure planned (Resolved) Status post appendectomy Provider Visit Care Team Role Provider Type Jose Brito MD Family Provider Physician Primary Care Provider Specialty: Internal Medicine Address: [address] [place] [address], [id number] Email: [email or web address] Shamar Blanchard MD Attending Provider Physician Specialty: Orthopedic Surgery Address: [address] [place] [address], [phone] Email: [email or web address] Physical Therapy Initial Evaluation PT-OP-A Visit Information Start: 06/16/19 13:49 Freq: Status: Active Protocol: Document 06/16/19 15:03 [facility] (Rec: 06/19/19 15:27 [facility] [id number]) Out-Patient Physical Therapy Visit Information Visit Information Visit Type Initial Evaluation Visit Start Time 13:45 Visit Stop Time 14:45 Total Visit Minutes 60 Visit Number 0 Precautions Precautions per protocol in chart: Weeks 0 -6: Maintain arm in sling/ brace, remove only for exercise, no shoulder AROM, lifting of objects, shoulder motion behind back, excessive stretching or sudden movements , supporting of any weight, lifting of body weight by hands PT-OP-B Current Condition Start: 06/16/19 13:49 Freq: Status: Active Protocol: Document 06/16/19 15:03 [facility] (Rec: 06/19/19 15:27 [facility] [id number]) Current Condition History of Current Condition Onset Date 06/11/19 Current Complaints left shoulder pain and immobiity History of Current Condition Underwent left shoulder arthroscopic subacromial decompression with distal clavicle excision, arthroscopic extensive debridement, and partila rotator cuff repair. In surgery there was found to be significant tearing of the labrum with maority of the labrum being pulled off the glenoid and signs of a previous proximal biceps rupture. Patient reports she has been wearing the sling 24 hours a day at this time including to sleep as instructed. Doing some icing of left shoulder. is going to have back surgery and patient reports she needs to recover so she can help him with his recovery after surgery. Future Testing and Treatments Planned Patient returns to see Dr. Lyman 06/22/19 prior to next PT session Treatment Goals Patient/Caregiver Goals Regain full use of her left UE Prior Functional Status Baseline Function- ADL's Modified Independent Baseline Function- Mobility Modified Independent Baseline Function- Other painful with use of left LE Current Functional Impairments (Reported) Functional Limitations- ADL's unable to use left UE Personal Factors Other Personal Factors That May Effect Reports clumsy, not Therapy/Recovery able to help with PROM of her shoulder. PT-OP-C Subjective Start: 06/16/19 13:49 Freq: Status: Active Protocol: Document 06/16/19 15:03 [facility] (Rec: 06/19/19 15:27 [facility] [id number]) Patient Questionnaires Quick Dash- Upper Extremity Quick Dash UE Impairment 80 to 99% Impaired (Score 80- 99) Quick Dash- Work and Sports Modules Quick Dash W&S Score 93 OP-PT Pain Assessment Pain Assessment Grid Paper Pain Assessment Grid Completed Yes Location left shoulder Intensity 5 Home Pain Medication Use Pain Medications Used Yes Pain Behaviors Pain Behaviors Guarding Wincing PT-OP-H Neuro Start: 06/16/19 13:49 Freq: Status: Active Protocol: Document 06/16/19 15:03 [facility] (Rec: 06/19/19 15:27 [facility] [id number]) Sensation Evaluation Gross Sensation Gross Sensation WNL Comments Summary Comments denied N/T PT-OP-J Posture/Palpation/Skin Start: 06/16/19 13:49 Freq: Status: Active Protocol: Document 06/16/19 15:03 [facility] (Rec: 06/19/19 15:27 [facility] [id number]) Posture Evaluation Position Sitting Head/C-Spine Posture Forward Head Shoulder Posture (L) Rounded (R) Rounded Scapula Posture (L) Protracted (R) Protracted Palpation Assessment Location left UT Palpation Findings Muscle Guarding Skin Assessment Incisional Assessment Incision Appearance/Comments covered with post-op dressing. No signs or symptoms of infection. PT-OP-K Range of Motion Start: 06/16/19 13:49 Freq: Status: Active Protocol: Document 06/16/19 15:03 [facility] (Rec: 06/19/19 15:27 [facility] [id number]) Cervical Spine Range of Motion Cervical Spine Active Testing Position Sitting ROM Limitations Soft Tissue Tightness Comments mild limitations most with right SB Shoulder Goniometric Range of Motion Shoulder Left Passive Shoulder ROM WFL No Testing Position Supine Flexion 50 Extension 0 Abduction 20 External Rotation at 45 degrees 25 Abduction Internal Rotation 20 Right Active Shoulder ROM WFL Yes Shoulder ROM Limitations Shoulder ROM Limitations Pain Comments No AROM due to orthopedic precautions Elbow/Forearm Range of Motion Elbow/Forearm Left Active Elbow/Forearm ROM WFL No ROM Testing Position Sitting Elbow Flexion (degrees) 135 Elbow Extension (degrees) 10 Right Active Elbow/Forearm ROM WFL Yes ROM Testing Position Sitting Elbow/Forearm ROM Limitations Elbow/Forearm ROM Limitations Soft Tissue Tightness Pain Wrist Goniometric Range of Motion Wrist gerry Wrist ROM WFL Yes PT-OP-M Strength Start: 06/16/19 13:49 Freq: Status: Active Protocol: Document 06/16/19 15:03 [facility] (Rec: 06/19/19 15:27 [facility] [id number]) Shoulder Strength Shoulder Manual Muscle Testing Left Reason Not Measured Orthopedic Precautions Right Reason Not Measured WFL PT-OP-Q Treatments Start: 06/16/19 13:49 Freq: Status: Active Protocol: Document 06/16/19 15:03 [facility] (Rec: 06/19/19 15:27 [facility] [id number]) Therapeutic Exercises Supine Exercises PROM all planes Supine Exercise Name left shoulder Side left Reps/Minutes 5 x ea Comments gentle Sitting Exercises cervical AROM Reps/Minutes 5x ea Comments flex/ext, SB gerry, rot gerry scapular retraction Side bilateral Reps/Minutes 5x5 elbow flex/ext Side bilateral Reps/Minutes 5x forearm pron/sup Side bilateral Reps/Minutes 5x wrist flex/ext Side bilateral Reps/Minutes 5x hand open/close Side bilateral Reps/Minutes 5x Standing Exercises pendulum Side left Reps/Minutes 5x ea Comments gentle Self-Care/Home Management Treatment Education Patient Education Home Exercise Program Joint Protection Pain Management Posture Caregiver Education No AROM of shoulder Other Education Issued written HEP given information regarding obtaining gel ice pack PT-OP-R Modalities Start: 06/16/19 13:49 Freq: Status: Active Protocol: Document 06/16/19 15:03 [facility] (Rec: 06/19/19 15:27 [facility] [id number]) Hot Pack/Cold Pack Treatment Cold Pack Location left shoulder Patient Position Sitting Treatment Duration (minutes) 10 Patient Tolerance Good PT-OP-T Assessment and Plan Start: 06/16/19 13:49 Freq: Status: Active Protocol: Document 06/16/19 15:03 [facility] (Rec: 06/19/19 15:27 [facility] [id number]) Physical Therapy Assessment Rehab Potential Rehabilitation Potential Good Evaluation Complexity Number of Personal Factors/Comorbidities 3 or More Number of Body Systems Impaired 3 Clinical Presentation at Evaluation Evolving Impairments Impairments Functional Activities Pain ROM Strength Goals Four Impairment functional activities. Three Impairment strength Two Impairment ROM One Impairment pain Assessment Summary Assessment Patient presents s/p left shoulder surgery wearing sling appropriately, post-op dressing in place, scheduled to return to surgeon 06/22/19. Detailed protocol available and was reviewed with patient. Instructed in HEP per protocol with written instructions issued. Patient education regarding posture and pain management including icing of shoulder after exercises and when painful provided. Patient is highly receptive and demonstrated good understanding of all of the above. Denied N/T, no swelling evident in hand, no signs or symptoms of infection . Patient indicates won't be able to help her with PROM exercises. Patient will benefit from skilled PT to help her rehab her left shoulder and return to full functional use of her left UE. Physical Therapy Plan Frequency and Duration Frequency of Treatment 2x/Week Duration of Treatment 12 wks Plan of Care Start Date 06/16/19 Plan of Care End Date 09/16/19 Therapeutic Interventions Therapeutic Interventions Aquatic Therapy Home Exercise Program Manual Therapy Neuromuscular Re-education Self-Care/Home Management Soft Tissue Mobilization Taping Therapeutic Activities Therapeutic Exercises Modalities Cold Pack/Ice Massage Electric Stimulation Hot Packs Next Visit Focus/Plan Next Note Type Treatment Note Next Visit Plan Review results of physician appointment, HEP and protocol. PROM left shoulder, further postural education and training, gentle soft tissue mobilizaiton, ice. Consider IFES for pain management as indicated.
--- NOTE | 2019-06-22 10:54 | PT.OTN ---
Current Diagnoses Primary osteoarthritis, left shoulder (06/22/19) Pain in left shoulder (06/22/19) Impingement syndrome of left shoulder (06/22/19) Weakness (06/22/19) Encounter for other orthopedic aftercare (06/22/19) Physical Therapy Treatment Note PT-OP-A Visit Information Start: 06/16/19 13:49 Freq: Status: Active Protocol: Document 06/22/19 09:26 [facility] (Rec: 06/22/19 09:29 [facility] [id number]) Out-Patient Physical Therapy Visit Information Visit Information Visit Type Treatment Note Visit Start Time 08:45 Visit Stop Time 09:35 Total Visit Minutes 50 Visit Number 2 Precautions Precautions per protocol in chart: Weeks 0 -6: Maintain arm in sling/ brace, remove only for exercise, no shoulder AROM, lifting of objects, shoulder motion behind back, excessive stretching or sudden movements , supporting of any weight, lifting of body weight by hands PT-OP-B Current Condition Start: 06/16/19 13:49 Freq: Status: Active Protocol: Document 06/16/19 15:03 [facility] (Rec: 06/19/19 15:27 [facility] [id number]) Current Condition History of Current Condition Onset Date 06/11/19 Current Complaints left shoulder pain and immobiity History of Current Condition Underwent left shoulder arthroscopic subacromial decompression with distal clavicle excision, arthroscopic extensive debridement, and partila rotator cuff repair. In surgery there was found to be significant tearing of the labrum with maority of the labrum being pulled off the glenoid and signs of a previous proximal biceps rupture. Patient reports she has been wearing the sling 24 hours a day at this time including to sleep as instructed. Doing some icing of left shoulder. is going to have back surgery and patient reports she needs to recover so she can help him with his recovery after surgery. Future Testing and Treatments Planned Patient returns to see Dr. Lyman 06/22/19 prior to next PT session Treatment Goals Patient/Caregiver Goals Regain full use of her left UE Prior Functional Status Baseline Function- ADL's Modified Independent Baseline Function- Mobility Modified Independent Baseline Function- Other painful with use of left LE Current Functional Impairments (Reported) Functional Limitations- ADL's unable to use left UE Personal Factors Other Personal Factors That May Effect Reports clumsy, not Therapy/Recovery able to help with PROM of her shoulder. PT-OP-C Subjective Start: 06/16/19 13:49 Freq: Status: Active Protocol: Document 06/16/19 15:03 [facility] (Rec: 06/19/19 15:27 [facility] [id number]) Patient Questionnaires Quick Dash- Upper Extremity Quick Dash UE Impairment 80 to 99% Impaired (Score 80- 99) Quick Dash- Work and Sports Modules Quick Dash W&S Score 93 OP-PT Pain Assessment Pain Assessment Grid Paper Pain Assessment Grid Completed Yes Location left shoulder Intensity 5 Home Pain Medication Use Pain Medications Used Yes Pain Behaviors Pain Behaviors Guarding Wincing PT-OP-H Neuro Start: 06/16/19 13:49 Freq: Status: Active Protocol: Document 06/16/19 15:03 [facility] (Rec: 06/19/19 15:27 [facility] [id number]) Sensation Evaluation Gross Sensation Gross Sensation WNL Comments Summary Comments denied N/T PT-OP-J Posture/Palpation/Skin Start: 06/16/19 13:49 Freq: Status: Active Protocol: Document 06/16/19 15:03 [facility] (Rec: 06/19/19 15:27 [facility] [id number]) Posture Evaluation Position Sitting Head/C-Spine Posture Forward Head Shoulder Posture (L) Rounded (R) Rounded Scapula Posture (L) Protracted (R) Protracted Palpation Assessment Location left UT Palpation Findings Muscle Guarding Skin Assessment Incisional Assessment Incision Appearance/Comments covered with post-op dressing. No signs or symptoms of infection. PT-OP-K Range of Motion Start: 06/16/19 13:49 Freq: Status: Active Protocol: Document 06/16/19 15:03 [facility] (Rec: 06/19/19 15:27 [facility] [id number]) Cervical Spine Range of Motion Cervical Spine Active Testing Position Sitting ROM Limitations Soft Tissue Tightness Comments mild limitations most with right SB Shoulder Goniometric Range of Motion Shoulder Left Passive Shoulder ROM WFL No Testing Position Supine Flexion 50 Extension 0 Abduction 20 External Rotation at 45 degrees 25 Abduction Internal Rotation 20 Right Active Shoulder ROM WFL Yes Shoulder ROM Limitations Shoulder ROM Limitations Pain Comments No AROM due to orthopedic precautions Elbow/Forearm Range of Motion Elbow/Forearm Left Active Elbow/Forearm ROM WFL No ROM Testing Position Sitting Elbow Flexion (degrees) 135 Elbow Extension (degrees) 10 Right Active Elbow/Forearm ROM WFL Yes ROM Testing Position Sitting Elbow/Forearm ROM Limitations Elbow/Forearm ROM Limitations Soft Tissue Tightness Pain Wrist Goniometric Range of Motion Wrist gerry Wrist ROM WFL Yes PT-OP-M Strength Start: 06/16/19 13:49 Freq: Status: Active Protocol: Document 06/16/19 15:03 [facility] (Rec: 06/19/19 15:27 [facility] [id number]) Shoulder Strength Shoulder Manual Muscle Testing Left Reason Not Measured Orthopedic Precautions Right Reason Not Measured WFL PT-OP-Q Treatments Start: 06/16/19 13:49 Freq: Status: Active Protocol: Document 06/22/19 09:26 [facility] (Rec: 06/22/19 09:29 [facility] [id number]) Therapeutic Exercises Supine Exercises PROM all planes Supine Exercise Name left shoulder Side left Reps/Minutes 10 x ea Comments gentle Sitting Exercises cervical AROM Reps/Minutes 5x ea Comments flex/ext, SB gerry, rot gerry scapular retraction Side bilateral Reps/Minutes 5x5 Comments manual cues elbow flex/ext Side bilateral Reps/Minutes 10x forearm pron/sup Side bilateral Reps/Minutes 10x wrist flex/ext Side bilateral Reps/Minutes 10x hand open/close Side bilateral Reps/Minutes 10x Standing Exercises pendulum Side left Reps/Minutes 10x ea Comments gentle, reviewed need for movement to come from body Manual Therapy Treatment Soft Tissue Mobilization 1 Body Location left UT, lev scap, rhomboids, bicep Mobilization Type Myofascial Release Rolling Strumming Intensity/Depth Moderate Body Position Hooklying PT-OP-R Modalities Start: 06/16/19 13:49 Freq: Status: Active Protocol: Document 06/22/19 09:26 [facility] (Rec: 06/22/19 10:50 [facility] [id number]) Hot Pack/Cold Pack Treatment Cold Pack Location left shoulder Patient Position Hooklying Treatment Duration (minutes) 10 Patient Tolerance Good PT-OP-T Assessment and Plan Start: 06/16/19 13:49 Freq: Status: Active Protocol: Document 06/22/19 09:26 [facility] (Rec: 06/22/19 10:50 [facility] [id number]) Physical Therapy Assessment Goals Five Impairment knowledge deficit Short Term Goal (STG) instruct in post-op protocol for left shoulder rehab, assure understanding of precautions. Will be independent and compliant with HEP, with assistance of STG Duration ongoing Alf Goal (LTG) Patient to be independent and compliant with HEP, possibly aquatic exercise program. LTG Duration 6 months Four Impairment functional activities. Short Term Goal (STG) patient to wear sling except for during exercises, no active use per protocol STG Duration 6 wks Child'S Nurse Goal (LTG) Patient able to return to full functional use of left UE with minimal pain including reaching overhead and behind her back. LTG Duration 6 months Three Impairment strength Child'S Nurse Goal (LTG) Patient to demonstrate at least 4+/5 muscle strength throughout left shoulder LTG Duration 6 months Two Impairment ROM Short Term Goal (STG) Improve passive left shoulder forward flexion to at least 125 degrees, passive ER in scapular plane to at least 75 degrees, passive internal rotation in scapular plane to at least 75 degrees, and passive abduction to at least 90 degrees in the scapular plane. STG Duration 6 wks Alf Goal (LTG) Patient to return to full active motion left shoulder LTG Duration 6 months One Impairment pain Short Term Goal (STG) Decrease pain to no greater than 3/10 STG Duration 6 wks Alf Goal (LTG) Decrease pain to no greater than 1/10 with functional use of left UE LTG Duration 6 months Assessment Summary Assessment Patient and demonstrated improved understanding of post-op protocol, reported decrease in pain and muscle tension with soft tissue mobilization. Sees physician today (saw different physician for LBP last week who also changed her post-op dressing) Physical Therapy Plan Frequency and Duration Frequency of Treatment 2x/Week Duration of Treatment 12 wks Plan of Care Start Date 06/16/19 Plan of Care End Date 09/16/19 Therapeutic Interventions Therapeutic Interventions Aquatic Therapy Home Exercise Program Manual Therapy Neuromuscular Re-education Self-Care/Home Management Soft Tissue Mobilization Taping Therapeutic Activities Therapeutic Exercises Modalities Cold Pack/Ice Massage Electric Stimulation Hot Packs Next Visit Focus/Plan Next Note Type Treatment Note Next Visit Plan Continue left shoulder rehab per protocol.
--- NOTE | 2019-06-24 11:35 | PT.OTN ---
Current Diagnoses Primary osteoarthritis, left shoulder (06/24/19) Pain in left shoulder (06/24/19) Impingement syndrome of left shoulder (06/24/19) Weakness (06/24/19) Encounter for other orthopedic aftercare (06/24/19) Physical Therapy Treatment Note PT-OP-A Visit Information Start: 06/16/19 13:49 Freq: Status: Active Protocol: Document 06/24/19 10:19 [facility] (Rec: 06/24/19 11:10 [facility] [id number]) Out-Patient Physical Therapy Visit Information Visit Information Visit Type Treatment Note Visit Note Saw Dr. Sanders; ok to remove sling at home as long as sitting, can type, otherwise no changes, continue protocol Visit Start Time 08:45 Visit Stop Time 09:35 Total Visit Minutes 50 Visit Number 2 Precautions Precautions per protocol in chart: Weeks 0 -6: Maintain arm in sling/ brace, remove only for exercise, no shoulder AROM, lifting of objects, shoulder motion behind back, excessive stretching or sudden movements , supporting of any weight, lifting of body weight by hands. See written protocol in chart. PROM ER ok to 35 deg, flex ok to 90 at this time. PT-OP-B Current Condition Start: 06/16/19 13:49 Freq: Status: Active Protocol: Document 06/16/19 15:03 [facility] (Rec: 06/19/19 15:27 [facility] [id number]) Current Condition History of Current Condition Onset Date 06/11/19 Current Complaints left shoulder pain and immobiity History of Current Condition Underwent left shoulder arthroscopic subacromial decompression with distal clavicle excision, arthroscopic extensive debridement, and partila rotator cuff repair. In surgery there was found to be significant tearing of the labrum with maority of the labrum being pulled off the glenoid and signs of a previous proximal biceps rupture. Patient reports she has been wearing the sling 24 hours a day at this time including to sleep as instructed. Doing some icing of left shoulder. is going to have back surgery and patient reports she needs to recover so she can help him with his recovery after surgery. Future Testing and Treatments Planned Patient returns to see Dr. Lyman 06/22/19 prior to next PT session Treatment Goals Patient/Caregiver Goals Regain full use of her left UE Prior Functional Status Baseline Function- ADL's Modified Independent Baseline Function- Mobility Modified Independent Baseline Function- Other painful with use of left LE Current Functional Impairments (Reported) Functional Limitations- ADL's unable to use left UE Personal Factors Other Personal Factors That May Effect Reports clumsy, not Therapy/Recovery able to help with PROM of her shoulder. PT-OP-C Subjective Start: 06/16/19 13:49 Freq: Status: Active Protocol: Document 06/16/19 15:03 [facility] (Rec: 06/19/19 15:27 [facility] [id number]) Patient Questionnaires Quick Dash- Upper Extremity Quick Dash UE Impairment 80 to 99% Impaired (Score 80- 99) Quick Dash- Work and Sports Modules Quick Dash W&S Score 93 OP-PT Pain Assessment Pain Assessment Grid Paper Pain Assessment Grid Completed Yes Location left shoulder Intensity 5 Home Pain Medication Use Pain Medications Used Yes Pain Behaviors Pain Behaviors Guarding Wincing PT-OP-H Neuro Start: 06/16/19 13:49 Freq: Status: Active Protocol: Document 06/16/19 15:03 [facility] (Rec: 06/19/19 15:27 [facility] [id number]) Sensation Evaluation Gross Sensation Gross Sensation WNL Comments Summary Comments denied N/T PT-OP-J Posture/Palpation/Skin Start: 06/16/19 13:49 Freq: Status: Active Protocol: Document 06/16/19 15:03 [facility] (Rec: 06/19/19 15:27 [facility] [id number]) Posture Evaluation Position Sitting Head/C-Spine Posture Forward Head Shoulder Posture (L) Rounded (R) Rounded Scapula Posture (L) Protracted (R) Protracted Palpation Assessment Location left UT Palpation Findings Muscle Guarding Skin Assessment Incisional Assessment Incision Appearance/Comments covered with post-op dressing. No signs or symptoms of infection. PT-OP-K Range of Motion Start: 06/16/19 13:49 Freq: Status: Active Protocol: Document 06/16/19 15:03 [facility] (Rec: 06/19/19 15:27 [facility] [id number]) Cervical Spine Range of Motion Cervical Spine Active Testing Position Sitting ROM Limitations Soft Tissue Tightness Comments mild limitations most with right SB Shoulder Goniometric Range of Motion Shoulder Left Passive Shoulder ROM WFL No Testing Position Supine Flexion 50 Extension 0 Abduction 20 External Rotation at 45 degrees 25 Abduction Internal Rotation 20 Right Active Shoulder ROM WFL Yes Shoulder ROM Limitations Shoulder ROM Limitations Pain Comments No AROM due to orthopedic precautions Elbow/Forearm Range of Motion Elbow/Forearm Left Active Elbow/Forearm ROM WFL No ROM Testing Position Sitting Elbow Flexion (degrees) 135 Elbow Extension (degrees) 10 Right Active Elbow/Forearm ROM WFL Yes ROM Testing Position Sitting Elbow/Forearm ROM Limitations Elbow/Forearm ROM Limitations Soft Tissue Tightness Pain Wrist Goniometric Range of Motion Wrist gerry Wrist ROM WFL Yes PT-OP-M Strength Start: 06/16/19 13:49 Freq: Status: Active Protocol: Document 06/16/19 15:03 [facility] (Rec: 06/19/19 15:27 [facility] [id number]) Shoulder Strength Shoulder Manual Muscle Testing Left Reason Not Measured Orthopedic Precautions Right Reason Not Measured WFL PT-OP-Q Treatments Start: 06/16/19 13:49 Freq: Status: Active Protocol: Document 06/24/19 10:19 [facility] (Rec: 06/24/19 11:10 [facility] [id number]) Therapeutic Exercises Supine Exercises PROM all planes Supine Exercise Name left shoulder Side left Reps/Minutes 10 x ea Comments gentle, instructed. ER with wand ok, scapular plane Sitting Exercises cervical AROM Reps/Minutes 5x ea Comments flex/ext, SB gerry, rot gerry scapular retraction Side bilateral Reps/Minutes 5x5 Comments manual cues elbow flex/ext Side bilateral Reps/Minutes 10x forearm pron/sup Side bilateral Reps/Minutes 10x wrist flex/ext Side bilateral Reps/Minutes 10x hand open/close Side bilateral Reps/Minutes 10x Standing Exercises pendulum Side left Reps/Minutes 10x ea Comments gentle, reviewed need for movement to come from body Manual Therapy Treatment Soft Tissue Mobilization 1 Body Location left UT, lev scap, rhomboids, bicep Mobilization Type Myofascial Release Rolling Strumming Intensity/Depth Moderate Body Position Hooklying Self-Care/Home Management Treatment Education Caregiver Education PROM adding ER today Other Education updated HEP PT-OP-R Modalities Start: 06/16/19 13:49 Freq: Status: Active Protocol: Document 06/24/19 10:19 [facility] (Rec: 06/24/19 11:10 [facility] [id number]) Hot Pack/Cold Pack Treatment Cold Pack Location left shoulder Patient Position Hooklying Treatment Duration (minutes) 10 Patient Tolerance Good PT-OP-T Assessment and Plan Start: 06/16/19 13:49 Freq: Status: Active Protocol: Document 06/24/19 10:19 [facility] (Rec: 06/24/19 11:10 [facility] [id number]) Physical Therapy Assessment Goals Five Impairment knowledge deficit Short Term Goal (STG) instruct in post-op protocol for left shoulder rehab, assure understanding of precautions. Will be independent and compliant with HEP, with assistance of STG Duration ongoing [facility] Goal (LTG) Patient to be independent and compliant with HEP, possibly aquatic exercise program. LTG Duration 6 months Four Impairment functional activities. Short Term Goal (STG) patient to wear sling except for during exercises, no active use per protocol STG Duration 6 wks Coverage Specialist Goal (LTG) Patient able to return to full functional use of left UE with minimal pain including reaching overhead and behind her back. LTG Duration 6 months Three Impairment strength Coverage Specialist Goal (LTG) Patient to demonstrate at least 4+/5 muscle strength throughout left shoulder LTG Duration 6 months Two Impairment ROM Short Term Goal (STG) Improve passive left shoulder forward flexion to at least 125 degrees, passive ER in scapular plane to at least 75 degrees, passive internal rotation in scapular plane to at least 75 degrees, and passive abduction to at least 90 degrees in the scapular plane. STG Duration 6 wks [facility]dc Goal (LTG) Patient to return to full active motion left shoulder LTG Duration 6 months One Impairment pain Short Term Goal (STG) Decrease pain to no greater than 3/10 STG Duration 6 wks Coverage Specialist Goal (LTG) Decrease pain to no greater than 1/10 with functional use of left UE LTG Duration 6 months Assessment Summary Assessment Patient healing well, incisions approximated. Some soreness after 1st PT treatment, no increase in pain . Compliant to HEP. Physical Therapy Plan Frequency and Duration Frequency of Treatment 2x/Week Duration of Treatment 12 wks Plan of Care Start Date 06/16/19 Plan of Care End Date 09/16/19 Therapeutic Interventions Therapeutic Interventions Aquatic Therapy Home Exercise Program Manual Therapy Neuromuscular Re-education Self-Care/Home Management Soft Tissue Mobilization Taping Therapeutic Activities Therapeutic Exercises Modalities Cold Pack/Ice Massage Electric Stimulation Hot Packs Next Visit Focus/Plan Next Note Type Treatment Note Next Visit Plan Continue left shoulder rehab per protocol. Print off aquatic exercise information prior to patient leaving for extended vacation 07/04/19.
--- NOTE | 2019-07-01 16:42 | PT.OTN ---
Current Diagnoses Primary osteoarthritis, left shoulder (07/01/19) Pain in left shoulder (07/01/19) Impingement syndrome of left shoulder (07/01/19) Weakness (07/01/19) Encounter for other orthopedic aftercare (07/01/19) Physical Therapy Treatment Note PT-OP-A Visit Information Start: 06/16/19 13:49 Freq: Status: Active Protocol: Document 07/01/19 14:27 [facility] (Rec: 07/01/19 15:18 [facility] [id number]) Out-Patient Physical Therapy Visit Information Visit Information Visit Type Treatment Note Visit Start Time 14:30 Visit Stop Time 15:20 Total Visit Minutes 50 Visit Number 4 Precautions Precautions per protocol in chart: Weeks 0 -6: Maintain arm in sling/ brace, remove only for exercise, no shoulder AROM, lifting of objects, shoulder motion behind back, excessive stretching or sudden movements , supporting of any weight, lifting of body weight by hands. See written protocol in chart. PROM ER ok to 35 deg, flex ok to 90 at this time. PT-OP-B Current Condition Start: 06/16/19 13:49 Freq: Status: Active Protocol: Document 06/16/19 15:03 [facility] (Rec: 06/19/19 15:27 [facility] [id number]) Current Condition History of Current Condition Onset Date 06/11/19 Current Complaints left shoulder pain and immobiity History of Current Condition Underwent left shoulder arthroscopic subacromial decompression with distal clavicle excision, arthroscopic extensive debridement, and partila rotator cuff repair. In surgery there was found to be significant tearing of the labrum with maority of the labrum being pulled off the glenoid and signs of a previous proximal biceps rupture. Patient reports she has been wearing the sling 24 hours a day at this time including to sleep as instructed. Doing some icing of left shoulder. is going to have back surgery and patient reports she needs to recover so she can help him with his recovery after surgery. Future Testing and Treatments Planned Patient returns to see Dr. Lyman 06/22/19 prior to next PT session Treatment Goals Patient/Caregiver Goals Regain full use of her left UE Prior Functional Status Baseline Function- ADL's Modified Independent Baseline Function- Mobility Modified Independent Baseline Function- Other painful with use of left LE Current Functional Impairments (Reported) Functional Limitations- ADL's unable to use left UE Personal Factors Other Personal Factors That May Effect Reports clumsy, not Therapy/Recovery able to help with PROM of her shoulder. PT-OP-C Subjective Start: 06/16/19 13:49 Freq: Status: Active Protocol: Document 06/16/19 15:03 [facility] (Rec: 06/19/19 15:27 [facility] [id number]) Patient Questionnaires Quick Dash- Upper Extremity Quick Dash UE Impairment 80 to 99% Impaired (Score 80- 99) Quick Dash- Work and Sports Modules Quick Dash W&S Score 93 OP-PT Pain Assessment Pain Assessment Grid Paper Pain Assessment Grid Completed Yes Location left shoulder Intensity 5 Home Pain Medication Use Pain Medications Used Yes Pain Behaviors Pain Behaviors Guarding Wincing PT-OP-H Neuro Start: 06/16/19 13:49 Freq: Status: Active Protocol: Document 06/16/19 15:03 [facility] (Rec: 06/19/19 15:27 [facility] [id number]) Sensation Evaluation Gross Sensation Gross Sensation WNL Comments Summary Comments denied N/T PT-OP-J Posture/Palpation/Skin Start: 06/16/19 13:49 Freq: Status: Active Protocol: Document 06/16/19 15:03 [facility] (Rec: 06/19/19 15:27 [facility] [id number]) Posture Evaluation Position Sitting Head/C-Spine Posture Forward Head Shoulder Posture (L) Rounded (R) Rounded Scapula Posture (L) Protracted (R) Protracted Palpation Assessment Location left UT Palpation Findings Muscle Guarding Skin Assessment Incisional Assessment Incision Appearance/Comments covered with post-op dressing. No signs or symptoms of infection. PT-OP-K Range of Motion Start: 06/16/19 13:49 Freq: Status: Active Protocol: Document 06/16/19 15:03 [facility] (Rec: 06/19/19 15:27 [facility] [id number]) Cervical Spine Range of Motion Cervical Spine Active Testing Position Sitting ROM Limitations Soft Tissue Tightness Comments mild limitations most with right SB Shoulder Goniometric Range of Motion Shoulder Left Passive Shoulder ROM WFL No Testing Position Supine Flexion 50 Extension 0 Abduction 20 External Rotation at 45 degrees 25 Abduction Internal Rotation 20 Right Active Shoulder ROM WFL Yes Shoulder ROM Limitations Shoulder ROM Limitations Pain Comments No AROM due to orthopedic precautions Elbow/Forearm Range of Motion Elbow/Forearm Left Active Elbow/Forearm ROM WFL No ROM Testing Position Sitting Elbow Flexion (degrees) 135 Elbow Extension (degrees) 10 Right Active Elbow/Forearm ROM WFL Yes ROM Testing Position Sitting Elbow/Forearm ROM Limitations Elbow/Forearm ROM Limitations Soft Tissue Tightness Pain Wrist Goniometric Range of Motion Wrist gerry Wrist ROM WFL Yes PT-OP-M Strength Start: 06/16/19 13:49 Freq: Status: Active Protocol: Document 06/16/19 15:03 [facility] (Rec: 06/19/19 15:27 [facility] [id number]) Shoulder Strength Shoulder Manual Muscle Testing Left Reason Not Measured Orthopedic Precautions Right Reason Not Measured WFL PT-OP-Q Treatments Start: 06/16/19 13:49 Freq: Status: Active Protocol: Document 07/01/19 14:27 [facility] (Rec: 07/01/19 15:18 [facility] [id number]) Therapeutic Exercises Supine Exercises PROM all planes Supine Exercise Name left shoulder Side left Reps/Minutes 10 x ea Comments gentle, instructed. ER with wand ok, scapular plane Sitting Exercises cervical AROM Reps/Minutes 5x ea Comments flex/ext, SB gerry, rot gerry scapular retraction Side bilateral Reps/Minutes 10x5 Comments manual cues elbow flex/ext Side bilateral Resistance 1# Reps/Minutes 10x forearm pron/sup Side bilateral Resistance 1# Reps/Minutes 10x wrist flex/ext Side bilateral Reps/Minutes 10x hand open/close Side bilateral Resistance theraputty (yellow) Reps/Minutes 10x Standing Exercises pendulum Comments pt reports LE's go numb Manual Therapy Treatment Soft Tissue Mobilization 1 Body Location left UT, lev scap, rhomboids, bicep, scar Mobilization Type Myofascial Release Rolling Strumming Intensity/Depth Moderate Body Position Hooklying Self-Care/Home Management Treatment Education Patient Education Home Exercise Program Pain Management Posture PT-OP-R Modalities Start: 06/16/19 13:49 Freq: Status: Active Protocol: Document 07/01/19 14:27 [facility] (Rec: 07/01/19 15:18 [facility] [id number]) Hot Pack/Cold Pack Treatment Cold Pack Location left shoulder Patient Position Hooklying Treatment Duration (minutes) 10 Patient Tolerance Good PT-OP-T Assessment and Plan Start: 06/16/19 13:49 Freq: Status: Active Protocol: Document 07/01/19 14:27 [facility] (Rec: 07/01/19 15:18 [facility] [id number]) Physical Therapy Assessment Goals Five Impairment knowledge deficit Short Term Goal (STG) instruct in post-op protocol for left shoulder rehab, assure understanding of precautions. Will be independent and compliant with HEP, with assistance of STG Duration ongoing [facility] Goal (LTG) Patient to be independent and compliant with HEP, possibly aquatic exercise program. LTG Duration 6 months Four Impairment functional activities. Short Term Goal (STG) patient to wear sling except for during exercises, no active use per protocol STG Duration 6 wks [facility] Goal (LTG) Patient able to return to full functional use of left UE with minimal pain including reaching overhead and behind her back. LTG Duration 6 months Three Impairment strength Skilled Nursing Goal (LTG) Patient to demonstrate at least 4+/5 muscle strength throughout left shoulder LTG Duration 6 months Two Impairment ROM Short Term Goal (STG) Improve passive left shoulder forward flexion to at least 125 degrees, passive ER in scapular plane to at least 75 degrees, passive internal rotation in scapular plane to at least 75 degrees, and passive abduction to at least 90 degrees in the scapular plane. STG Duration 6 wks [facility] Goal (LTG) Patient to return to full active motion left shoulder LTG Duration 6 months One Impairment pain Short Term Goal (STG) Decrease pain to no greater than 3/10 STG Duration 6 wks [facility] Care Associate Goal (LTG) Decrease pain to no greater than 1/10 with functional use of left UE LTG Duration 6 months Physical Therapy Plan Frequency and Duration Frequency of Treatment 2x/Week Duration of Treatment 12 wks Plan of Care Start Date 06/16/19 Plan of Care End Date 09/16/19 Therapeutic Interventions Therapeutic Interventions Aquatic Therapy Home Exercise Program Manual Therapy Neuromuscular Re-education Self-Care/Home Management Soft Tissue Mobilization Taping Therapeutic Activities Therapeutic Exercises Modalities Cold Pack/Ice Massage Electric Stimulation Hot Packs Next Visit Focus/Plan Next Note Type Treatment Note Next Visit Plan Continue left shoulder rehab per protocol. Print off aquatic exercise information prior to patient leaving for extended vacation 07/04/19 as she will have access to a pool . Assure understanding of protocol progression and precautions while out of town.
--- NOTE | 2019-07-03 13:21 | PT.OTN ---
Current Diagnoses Primary osteoarthritis, left shoulder (07/03/19) Pain in left shoulder (07/03/19) Impingement syndrome of left shoulder (07/03/19) Weakness (07/03/19) Encounter for other orthopedic aftercare (07/03/19) Physical Therapy Treatment Note PT-OP-A Visit Information Start: 06/16/19 13:49 Freq: Status: Active Protocol: Document 07/03/19 11:23 [facility] (Rec: 07/03/19 13:21 [facility] [id number]) Out-Patient Physical Therapy Visit Information Visit Information Visit Type Treatment Note Visit Start Time 11:14 Visit Stop Time 12:14 Total Visit Minutes 60 Visit Number 5 Precautions Precautions per protocol in chart: Weeks 0 -6: Maintain arm in sling/ brace, remove only for exercise, no shoulder AROM, lifting of objects, shoulder motion behind back, excessive stretching or sudden movements , supporting of any weight, lifting of body weight by hands. See written protocol in chart. PROM ER ok to 35 deg, flex ok to 90 at this time. PT-OP-B Current Condition Start: 06/16/19 13:49 Freq: Status: Active Protocol: Document 06/16/19 15:03 [facility] (Rec: 06/19/19 15:27 [facility] [id number]) Current Condition History of Current Condition Onset Date 06/11/19 Current Complaints left shoulder pain and immobiity History of Current Condition Underwent left shoulder arthroscopic subacromial decompression with distal clavicle excision, arthroscopic extensive debridement, and partila rotator cuff repair. In surgery there was found to be significant tearing of the labrum with maority of the labrum being pulled off the glenoid and signs of a previous proximal biceps rupture. Patient reports she has been wearing the sling 24 hours a day at this time including to sleep as instructed. Doing some icing of left shoulder. is going to have back surgery and patient reports she needs to recover so she can help him with his recovery after surgery. Future Testing and Treatments Planned Patient returns to see Dr. Lyman 06/22/19 prior to next PT session Treatment Goals Patient/Caregiver Goals Regain full use of her left UE Prior Functional Status Baseline Function- ADL's Modified Independent Baseline Function- Mobility Modified Independent Baseline Function- Other painful with use of left LE Current Functional Impairments (Reported) Functional Limitations- ADL's unable to use left UE Personal Factors Other Personal Factors That May Effect Reports clumsy, not Therapy/Recovery able to help with PROM of her shoulder. PT-OP-C Subjective Start: 06/16/19 13:49 Freq: Status: Active Protocol: Document 07/03/19 11:23 [facility] (Rec: 07/03/19 13:15 [facility] [id number]) OP-PT Subjective Patient Comments Patient Comments Compliant to HEP, has to remind her to relax, not mistakenly use her left UE. Both requesting review of HEP , instruction for ex while gone for 3 wks, review of performing PROM with 's assist. PT-OP-H Neuro Start: 06/16/19 13:49 Freq: Status: Active Protocol: Document 06/16/19 15:03 [facility] (Rec: 06/19/19 15:27 [facility] [id number]) Sensation Evaluation Gross Sensation Gross Sensation WNL Comments Summary Comments denied N/T PT-OP-J Posture/Palpation/Skin Start: 06/16/19 13:49 Freq: Status: Active Protocol: Document 06/16/19 15:03 [facility] (Rec: 06/19/19 15:27 [facility] [id number]) Posture Evaluation Position Sitting Head/C-Spine Posture Forward Head Shoulder Posture (L) Rounded (R) Rounded Scapula Posture (L) Protracted (R) Protracted Palpation Assessment Location left UT Palpation Findings Muscle Guarding Skin Assessment Incisional Assessment Incision Appearance/Comments covered with post-op dressing. No signs or symptoms of infection. PT-OP-K Range of Motion Start: 06/16/19 13:49 Freq: Status: Active Protocol: Document 06/16/19 15:03 [facility] (Rec: 06/19/19 15:27 [facility] [id number]) Cervical Spine Range of Motion Cervical Spine Active Testing Position Sitting ROM Limitations Soft Tissue Tightness Comments mild limitations most with right SB Shoulder Goniometric Range of Motion Shoulder Left Passive Shoulder ROM WFL No Testing Position Supine Flexion 50 Extension 0 Abduction 20 External Rotation at 45 degrees 25 Abduction Internal Rotation 20 Right Active Shoulder ROM WFL Yes Shoulder ROM Limitations Shoulder ROM Limitations Pain Comments No AROM due to orthopedic precautions Elbow/Forearm Range of Motion Elbow/Forearm Left Active Elbow/Forearm ROM WFL No ROM Testing Position Sitting Elbow Flexion (degrees) 135 Elbow Extension (degrees) 10 Right Active Elbow/Forearm ROM WFL Yes ROM Testing Position Sitting Elbow/Forearm ROM Limitations Elbow/Forearm ROM Limitations Soft Tissue Tightness Pain Wrist Goniometric Range of Motion Wrist gerry Wrist ROM WFL Yes PT-OP-M Strength Start: 06/16/19 13:49 Freq: Status: Active Protocol: Document 06/16/19 15:03 [facility] (Rec: 06/19/19 15:27 [facility] [id number]) Shoulder Strength Shoulder Manual Muscle Testing Left Reason Not Measured Orthopedic Precautions Right Reason Not Measured WFL PT-OP-Q Treatments Start: 06/16/19 13:49 Freq: Status: Active Protocol: Document 07/03/19 11:23 [facility] (Rec: 07/03/19 12:11 [facility] [id number]) Cardio Equipment Recumbent Stepper (Sci-Fit) Duration (Minutes) 5 Resistance 1 Seat Position 5 Other legs only Therapeutic Exercises Supine Exercises PROM all planes Supine Exercise Name left shoulder Side left Reps/Minutes 10 x ea Comments gentle, instructed. ER with wand ok, scapular plane Sitting Exercises shoulder ER Sitting Exercise Name forward flexion trunk Reps/Minutes 10x PROM shld abd Sitting Exercise Name table slide Equipment Used slider sheet Reps/Minutes 10x PROM shld flex Sitting Exercise Name table slide Equipment Used slider sheet Reps/Minutes 10x cervical AROM Reps/Minutes 5x ea Comments flex/ext, SB gerry, rot gerry scapular retraction Side bilateral Reps/Minutes 10x5 Comments manual cues elbow flex/ext Comments HEP forearm pron/sup Comments HEP wrist flex/ext Comments HEP Standing Exercises pendulum Comments pt reports LE's go numb Manual Therapy Treatment Soft Tissue Mobilization 1 Body Location left UT, lev scap, rhomboids, bicep, scar Mobilization Type Myofascial Release Rolling Strumming Intensity/Depth Moderate Body Position Hooklying Self-Care/Home Management Treatment Education Patient Education Home Exercise Program Joint Protection Pain Management Posture PT-OP-R Modalities Start: 06/16/19 13:49 Freq: Status: Active Protocol: Document 07/03/19 11:23 [facility] (Rec: 07/03/19 13:15 [facility] [id number]) Hot Pack/Cold Pack Treatment Cold Pack Location left shoulder Patient Position Hooklying Treatment Duration (minutes) 10 Patient Tolerance Good PT-OP-T Assessment and Plan Start: 06/16/19 13:49 Freq: Status: Active Protocol: Document 07/03/19 11:23 [facility] (Rec: 07/03/19 12:11 [facility] [id number]) Physical Therapy Assessment Goals Five Impairment knowledge deficit Short Term Goal (STG) instruct in post-op protocol for left shoulder rehab, assure understanding of precautions. Will be independent and compliant with HEP, with assistance of STG Duration ongoing Fpc Goal (LTG) Patient to be independent and compliant with HEP, possibly aquatic exercise program. LTG Duration 6 months Four Impairment functional activities. Short Term Goal (STG) patient to wear sling except for during exercises, no active use per protocol STG Duration 6 wks Senior Logistics Manager Goal (LTG) Patient able to return to full functional use of left UE with minimal pain including reaching overhead and behind her back. LTG Duration 6 months Three Impairment strength Fpc Goal (LTG) Patient to demonstrate at least 4+/5 muscle strength throughout left shoulder LTG Duration 6 months Two Impairment ROM Short Term Goal (STG) Improve passive left shoulder forward flexion to at least 125 degrees, passive ER in scapular plane to at least 75 degrees, passive internal rotation in scapular plane to at least 75 degrees, and passive abduction to at least 90 degrees in the scapular plane. STG Duration 6 wks Senior Logistics Manager Goal (LTG) Patient to return to full active motion left shoulder LTG Duration 6 months One Impairment pain Short Term Goal (STG) Decrease pain to no greater than 3/10 STG Duration 6 wks Fpc Goal (LTG) Decrease pain to no greater than 1/10 with functional use of left UE LTG Duration 6 months Assessment Summary Assessment After instruction patient and demonstrated good understanding of HEP with additional handouts issued for aquatic exercises as well as seated PROM for left shoulder. Reviewed supine PROM with . Patient to contact PT while on trip with any questions. Physical Therapy Plan Frequency and Duration Frequency of Treatment 2x/Week Duration of Treatment 12 wks Plan of Care Start Date 06/16/19 Plan of Care End Date 09/16/19 Therapeutic Interventions Therapeutic Interventions Aquatic Therapy Home Exercise Program Manual Therapy Neuromuscular Re-education Self-Care/Home Management Soft Tissue Mobilization Taping Therapeutic Activities Therapeutic Exercises Modalities Cold Pack/Ice Massage Electric Stimulation Hot Packs Next Visit Focus/Plan Next Note Type Treatment Note Next Visit Plan Continue left shoulder rehab per protocol. Print off aquatic exercise information prior to patient leaving for extended vacation 07/04/19 as she will have access to a pool . Assure understanding of protocol progression and precautions while out of town.
--- NOTE | 2019-07-27 12:30 | PT.OTN ---
Current Diagnoses Primary osteoarthritis, left shoulder (07/27/19) Pain in left shoulder (07/27/19) Impingement syndrome of left shoulder (07/27/19) Weakness (07/27/19) Encounter for other orthopedic aftercare (07/27/19) Physical Therapy Treatment Note PT-OP-A Visit Information Start: 06/16/19 13:49 Freq: Status: Active Protocol: Document 07/27/19 12:30 [facility] (Rec: 07/28/19 10:27 [facility] [id number]) Out-Patient Physical Therapy Visit Information Visit Information Visit Type Treatment Note Visit Start Time 12:30 Visit Stop Time 13:15 Total Visit Minutes 45 Visit Number 6 Number of SHRIMP PEELER Visits 0 Precautions Precautions per protocol in chart: Weeks 6 -8 (07/23/19-08/06/19): Continue AROM, AAROM, and stretching exercises, begin rotator cuff isometrics, continue periscapular exercises, initiate AROM exercises ( flexion scapular plane, abduction,ER,IR) PT-OP-B Current Condition Start: 06/16/19 13:49 Freq: Status: Active Protocol: Document 06/16/19 15:03 [facility] (Rec: 06/19/19 15:27 [facility] [id number]) Current Condition History of Current Condition Onset Date 06/11/19 Current Complaints left shoulder pain and immobiity History of Current Condition Underwent left shoulder arthroscopic subacromial decompression with distal clavicle excision, arthroscopic extensive debridement, and partila rotator cuff repair. In surgery there was found to be significant tearing of the labrum with maority of the labrum being pulled off the glenoid and signs of a previous proximal biceps rupture. Patient reports she has been wearing the sling 24 hours a day at this time including to sleep as instructed. Doing some icing of left shoulder. is going to have back surgery and patient reports she needs to recover so she can help him with his recovery after surgery. Future Testing and Treatments Planned Patient returns to see Dr. Lyman 06/22/19 prior to next PT session Treatment Goals Patient/Caregiver Goals Regain full use of her left UE Prior Functional Status Baseline Function- ADL's Modified Independent Baseline Function- Mobility Modified Independent Baseline Function- Other painful with use of left LE Current Functional Impairments (Reported) Functional Limitations- ADL's unable to use left UE Personal Factors Other Personal Factors That May Effect Reports clumsy, not Therapy/Recovery able to help with PROM of her shoulder. PT-OP-C Subjective Start: 06/16/19 13:49 Freq: Status: Active Protocol: Document 07/27/19 12:30 [facility] (Rec: 07/28/19 10:27 [facility] [id number]) OP-PT Subjective Patient Comments Patient Comments States had good vacation, compliance to HEP was variable due to travel, having difficulty helping with ex. Did get in a pool a few times as instructed. PT-OP-H Neuro Start: 06/16/19 13:49 Freq: Status: Active Protocol: Document 06/16/19 15:03 [facility] (Rec: 06/19/19 15:27 [facility] [id number]) Sensation Evaluation Gross Sensation Gross Sensation WNL Comments Summary Comments denied N/T PT-OP-J Posture/Palpation/Skin Start: 06/16/19 13:49 Freq: Status: Active Protocol: Document 06/16/19 15:03 [facility] (Rec: 06/19/19 15:27 [facility] [id number]) Posture Evaluation Position Sitting Head/C-Spine Posture Forward Head Shoulder Posture (L) Rounded,(R) Rounded Scapula Posture (L) Protracted,(R) Protracted Palpation Assessment Location left UT Palpation Findings Muscle Guarding Skin Assessment Incisional Assessment Incision Appearance/Comments covered with post-op dressing. No signs or symptoms of infection. PT-OP-K Range of Motion Start: 06/16/19 13:49 Freq: Status: Active Protocol: Document 06/16/19 15:03 [facility] (Rec: 06/19/19 15:27 [facility] [id number]) Cervical Spine Range of Motion Cervical Spine Active Testing Position Sitting ROM Limitations Soft Tissue Tightness Comments mild limitations most with right SB Shoulder Goniometric Range of Motion Shoulder Left Passive Shoulder ROM WFL No Testing Position Supine Flexion 50 Extension 0 Abduction 20 External Rotation at 45 degrees 25 Abduction Internal Rotation 20 Right Active Shoulder ROM WFL Yes Shoulder ROM Limitations Shoulder ROM Limitations Pain Comments No AROM due to orthopedic precautions Elbow/Forearm Range of Motion Elbow/Forearm Left Active Elbow/Forearm ROM WFL No ROM Testing Position Sitting Elbow Flexion (degrees) 135 Elbow Extension (degrees) 10 Right Active Elbow/Forearm ROM WFL Yes ROM Testing Position Sitting Elbow/Forearm ROM Limitations Elbow/Forearm ROM Limitations Soft Tissue Tightness,Pain Wrist Goniometric Range of Motion Wrist gerry Wrist ROM WFL Yes PT-OP-M Strength Start: 06/16/19 13:49 Freq: Status: Active Protocol: Document 06/16/19 15:03 [facility] (Rec: 06/19/19 15:27 [facility] [id number]) Shoulder Strength Shoulder Manual Muscle Testing Left Reason Not Measured Orthopedic Precautions Right Reason Not Measured WFL PT-OP-Q Treatments Start: 06/16/19 13:49 Freq: Status: Active Protocol: Document 07/03/19 11:23 [facility] (Rec: 07/03/19 12:11 [facility] [id number]) Cardio Equipment Recumbent Stepper (Sci-Fit) Duration (Minutes) 5 Resistance 1 Seat Position 5 Other legs only Therapeutic Exercises Supine Exercises PROM all planes Supine Exercise Name left shoulder Side left Reps/Minutes 10 x ea Comments gentle, instructed. ER with wand ok, scapular plane Sitting Exercises shoulder ER Sitting Exercise Name forward flexion trunk Reps/Minutes 10x PROM shld abd Sitting Exercise Name table slide Equipment Used slider sheet Reps/Minutes 10x PROM shld flex Sitting Exercise Name table slide Equipment Used slider sheet Reps/Minutes 10x cervical AROM Reps/Minutes 5x ea Comments flex/ext, SB gerry, rot gerry scapular retraction Side bilateral Reps/Minutes 10x5 Comments manual cues elbow flex/ext Comments HEP forearm pron/sup Comments HEP wrist flex/ext Comments HEP Standing Exercises pendulum Comments pt reports LE's go numb Manual Therapy Treatment Soft Tissue Mobilization 1 Body Location left UT, lev scap, rhomboids, bicep, scar Mobilization Type Myofascial Release,Rolling, Strumming Intensity/Depth Moderate Body Position Hooklying Self-Care/Home Management Treatment Education Patient Education Home Exercise Program,Joint Protection,Pain Management, Posture PT-OP-R Modalities Start: 06/16/19 13:49 Freq: Status: Active Protocol: Document 07/03/19 11:23 [facility] (Rec: 07/03/19 13:15 [facility] [id number]) Hot Pack/Cold Pack Treatment Cold Pack Location left shoulder Patient Position Hooklying Treatment Duration (minutes) 10 Patient Tolerance Good PT-OP-S Aquatic Treatment Start: 06/16/19 13:49 Freq: Status: Active Protocol: Document 07/27/19 12:30 [facility] (Rec: 07/28/19 10:27 [facility] [id number]) Aquatics Treatment Pool Entry/Exit Assistance Independent Water Walking Sideways Water Level Neck Level Level of Assistance Verbal Cues Comments with shoulder ab/ad [place] Water Level Neck Level Level of Assistance Verbal Cues Comments reverse breastroke UE's forward Water Level Neck Level Level of Assistance Verbal Cues Comments breastroke and alternating UE' s Upper Extremity Exercises shoulder isometrics all planes Body Position Standing Water Level Neck Level Reps/Duration 10x elbow flex/ext Body Position Standing Water Level Neck Level shoulder circles Body Position Standing Water Level Neck Level Reps/Duration 10x Comments arms in water shoulder IR/ER Body Position Standing Water Level Chest Level Reps/Duration 10x Comments arms in water shoulder flex/ext Reps/Duration 10x Comments arms remain in water hor ab/ad Body Position Standing Water Level Neck Level Reps/Duration 10x Comments arms remain in water [place] Activities [place] Activities Bicycle Comments with gentle breastroke UE's Manual Techniques [place] for passive thoracic and shoulder ROM (yellow neck float, LE floats) Aquatic Massage left UT, scapular musculature, biceps, deltoid PT-OP-T Assessment and Plan Start: 06/16/19 13:49 Freq: Status: Active Protocol: Document 07/27/19 12:30 [facility] (Rec: 07/28/19 10:27 [facility] [id number]) Physical Therapy Assessment Goals Five Impairment knowledge deficit Short Term Goal (STG) instruct in post-op protocol for left shoulder rehab, assure understanding of precautions. Will be independent and compliant with HEP, with assistance of STG Duration ongoing Political Anthropologist Goal (LTG) Patient to be independent and compliant with HEP, possibly aquatic exercise program. LTG Duration 6 months Four Impairment functional activities. Short Term Goal (STG) patient to wear sling except for during exercises, no active use per protocol STG Duration 6 wks Skilled Nursing Goal (LTG) Patient able to return to full functional use of left UE with minimal pain including reaching overhead and behind her back. LTG Duration 6 months Three Impairment strength Political Anthropologist Goal (LTG) Patient to demonstrate at least 4+/5 muscle strength throughout left shoulder LTG Duration 6 months Two Impairment ROM Short Term Goal (STG) Improve passive left shoulder forward flexion to at least 125 degrees, passive ER in scapular plane to at least 75 degrees, passive internal rotation in scapular plane to at least 75 degrees, and passive abduction to at least 90 degrees in the scapular plane. STG Duration 6 wks Skilled Nursing Goal (LTG) Patient to return to full active motion left shoulder LTG Duration 6 months One Impairment pain Short Term Goal (STG) Decrease pain to no greater than 3/10 STG Duration 6 wks Skilled Nursing Goal (LTG) Decrease pain to no greater than 1/10 with functional use of left UE LTG Duration 6 months Assessment Summary Assessment Patient has excessive muscle tone in left UT, needs verbal and manual cues to prevent compensation with ther ex. Initiated AROM ex with shoulder submerged at neck level. Physical Therapy Plan Frequency and Duration Frequency of Treatment 2x/Week Duration of Treatment 12 wks Plan of Care Start Date 06/16/19 Plan of Care End Date 09/16/19 Therapeutic Interventions Therapeutic Interventions Aquatic Therapy,Home Exercise Program,Manual Therapy, Neuromuscular Re-education, Self-Care/Home Management,Soft Tissue Mobilization,Taping, Therapeutic Activities, Therapeutic Exercises Modalities Cold Pack/Ice Massage,Electric Stimulation,Hot Packs Next Visit Focus/Plan Next Note Type Treatment Note Next Visit Plan Measure ROM, continue PT per protocol.
--- NOTE | 2019-07-30 14:30 | PT.OTN ---
Current Diagnoses Primary osteoarthritis, left shoulder (07/30/19) Pain in left shoulder (07/30/19) Impingement syndrome of left shoulder (07/30/19) Weakness (07/30/19) Encounter for other orthopedic aftercare (07/30/19) Physical Therapy Treatment Note PT-OP-A Visit Information Start: 06/16/19 13:49 Freq: Status: Active Protocol: Document 07/30/19 10:27 [facility] (Rec: 07/30/19 11:25 [facility] [id number]) Out-Patient Physical Therapy Visit Information Visit Information Visit Type Treatment Note Visit Start Time 10:30 Visit Stop Time 11:25 Total Visit Minutes 45 Visit Number 7 Number of REFRIGERATION ENGINEER Visits 0 Precautions Precautions per protocol in chart: Weeks 6 -8 (07/23/19-08/06/19): Continue AROM, AAROM, and stretching exercises, begin rotator cuff isometrics, continue periscapular exercises, initiate AROM exercises ( flexion scapular plane, abduction,ER,IR) PT-OP-B Current Condition Start: 06/16/19 13:49 Freq: Status: Active Protocol: Document 06/16/19 15:03 [facility] (Rec: 06/19/19 15:27 [facility] [id number]) Current Condition History of Current Condition Onset Date 06/11/19 Current Complaints left shoulder pain and immobiity History of Current Condition Underwent left shoulder arthroscopic subacromial decompression with distal clavicle excision, arthroscopic extensive debridement, and partila rotator cuff repair. In surgery there was found to be significant tearing of the labrum with maority of the labrum being pulled off the glenoid and signs of a previous proximal biceps rupture. Patient reports she has been wearing the sling 24 hours a day at this time including to sleep as instructed. Doing some icing of left shoulder. is going to have back surgery and patient reports she needs to recover so she can help him with his recovery after surgery. Future Testing and Treatments Planned Patient returns to see Dr. Lyman 06/22/19 prior to next PT session Treatment Goals Patient/Caregiver Goals Regain full use of her left UE Prior Functional Status Baseline Function- ADL's Modified Independent Baseline Function- Mobility Modified Independent Baseline Function- Other painful with use of left LE Current Functional Impairments (Reported) Functional Limitations- ADL's unable to use left UE Personal Factors Other Personal Factors That May Effect Reports clumsy, not Therapy/Recovery able to help with PROM of her shoulder. PT-OP-C Subjective Start: 06/16/19 13:49 Freq: Status: Active Protocol: Document 07/30/19 10:27 [facility] (Rec: 07/30/19 14:30 [facility] [id number]) OP-PT Subjective Patient Comments Patient Comments Patient reports soreness after aquatic PT though also states she overdid at home after, including doing some sweeping that she hasn't done since before her surgery. Patient Reported Progress Improving PT-OP-H Neuro Start: 06/16/19 13:49 Freq: Status: Active Protocol: Document 06/16/19 15:03 [facility] (Rec: 06/19/19 15:27 [facility] [id number]) Sensation Evaluation Gross Sensation Gross Sensation WNL Comments Summary Comments denied N/T PT-OP-J Posture/Palpation/Skin Start: 06/16/19 13:49 Freq: Status: Active Protocol: Document 06/16/19 15:03 [facility] (Rec: 06/19/19 15:27 [facility] [id number]) Posture Evaluation Position Sitting Head/C-Spine Posture Forward Head Shoulder Posture (L) Rounded,(R) Rounded Scapula Posture (L) Protracted,(R) Protracted Palpation Assessment Location left [place] Palpation Findings Muscle Guarding Skin Assessment Incisional Assessment Incision Appearance/Comments covered with post-op dressing. No signs or symptoms of infection. PT-OP-K Range of Motion Start: 06/16/19 13:49 Freq: Status: Active Protocol: Document 06/16/19 15:03 [facility] (Rec: 06/19/19 15:27 [facility] [id number]) Cervical Spine Range of Motion Cervical Spine Active Testing Position Sitting ROM Limitations Soft Tissue Tightness Comments mild limitations most with right SB Shoulder Goniometric Range of Motion Shoulder Left Passive Shoulder ROM WFL No Testing Position Supine Flexion 50 Extension 0 Abduction 20 External Rotation at 45 degrees 25 Abduction Internal Rotation 20 Right Active Shoulder ROM WFL Yes Shoulder ROM Limitations Shoulder ROM Limitations Pain Comments No AROM due to orthopedic precautions Elbow/Forearm Range of Motion Elbow/Forearm Left Active Elbow/Forearm ROM WFL No ROM Testing Position Sitting Elbow Flexion (degrees) 135 Elbow Extension (degrees) 10 Right Active Elbow/Forearm ROM WFL Yes ROM Testing Position Sitting Elbow/Forearm ROM Limitations Elbow/Forearm ROM Limitations Soft Tissue Tightness,Pain Wrist Goniometric Range of Motion Wrist gerry Wrist ROM WFL Yes PT-OP-M Strength Start: 06/16/19 13:49 Freq: Status: Active Protocol: Document 06/16/19 15:03 [facility] (Rec: 06/19/19 15:27 [facility] [id number]) Shoulder Strength Shoulder Manual Muscle Testing Left Reason Not Measured Orthopedic Precautions Right Reason Not Measured WFL PT-OP-Q Treatments Start: 06/16/19 13:49 Freq: Status: Active Protocol: Document 07/30/19 10:27 [facility] (Rec: 07/30/19 11:25 [facility] [id number]) Therapeutic Exercises Supine Exercises shoulder IR/ER Reps/Minutes 10x2 Comments AAROM, AROM shoulder flex Equipment Used wand Reps/Minutes 10x chest press Equipment Used wand Reps/Minutes 5x Sitting Exercises manual pec stretch Reps/Minutes 1 min pulleys shoulder flex Reps/Minutes 10x shoulder ER Sitting Exercise Name elbow at side Reps/Minutes 10x Standing Exercises shoulder extension Equipment Used wand Reps/Minutes 10x shoulder isometrics all planes Reps/Minutes 5x ea Manual Therapy Treatment Soft Tissue Mobilization 1 Body Location left UT, lev scap, rhomboids, bicep, scar Mobilization Type Myofascial Release,Rolling, Strumming Intensity/Depth Moderate Body Position Hooklying Self-Care/Home Management Treatment Education Patient Education Home Exercise Program,Joint Protection,Pain Management, Posture PT-OP-R Modalities Start: 06/16/19 13:49 Freq: Status: Active Protocol: Document 07/30/19 10:27 [facility] (Rec: 07/30/19 14:01 [facility] [id number]) Electric Stimulation Electric Stimulation Interferential Current (IFC) Body Location left shoulder Duration (Minutes) 12 Intensity 17 Target/Sweep Sweep Patient Position Hooklying Combined With Heat/Cold Cold Pack PT-OP-S Aquatic Treatment Start: 06/16/19 13:49 Freq: Status: Active Protocol: Document 07/27/19 12:30 [facility] (Rec: 07/28/19 10:27 [facility] [id number]) Aquatics Treatment Pool Entry/Exit Assistance Independent Water Walking Sideways Water Level Neck Level Level of Assistance Verbal Cues Comments with shoulder ab/ad baclward Water Level Neck Level Level of Assistance Verbal Cues Comments reverse breastroke UE's forward Water Level Neck Level Level of Assistance Verbal Cues Comments breastroke and alternating UE' s Upper Extremity Exercises shoulder isometrics all planes Body Position Standing Water Level Neck Level Reps/Duration 10x elbow flex/ext Body Position Standing Water Level Neck Level shoulder circles Body Position Standing Water Level Neck Level Reps/Duration 10x Comments arms in water shoulder IR/ER Body Position Standing Water Level Chest Level Reps/Duration 10x Comments arms in water shoulder flex/ext Reps/Duration 10x Comments arms remain in water hor ab/ad Body Position Standing Water Level Neck Level Reps/Duration 10x Comments arms remain in water [place] Activities [place] Activities Bicycle Comments with gentle breastroke UE's Manual Techniques Bad Ragaz for passive thoracic and shoulder ROM (yellow neck float, LE floats) Aquatic Massage left UT, scapular musculature, biceps, deltoid PT-OP-T Assessment and Plan Start: 06/16/19 13:49 Freq: Status: Active Protocol: Document 07/30/19 10:27 [facility] (Rec: 07/30/19 11:25 [facility] [id number]) Physical Therapy Assessment Goals Five Impairment knowledge deficit Short Term Goal (STG) instruct in post-op protocol for left shoulder rehab, assure understanding of precautions. Will be independent and compliant with HEP, with assistance of STG Duration ongoing [facility] Goal (LTG) Patient to be independent and compliant with HEP, possibly aquatic exercise program. LTG Duration 6 months Four Impairment functional activities. Short Term Goal (STG) patient to wear sling except for during exercises, no active use per protocol STG Duration 6 wks [facility] Goal (LTG) Patient able to return to full functional use of left UE with minimal pain including reaching overhead and behind her back. LTG Duration 6 months Three Impairment strength [facility] Goal (LTG) Patient to demonstrate at least 4+/5 muscle strength throughout left shoulder LTG Duration 6 months Two Impairment ROM Short Term Goal (STG) Improve passive left shoulder forward flexion to at least 125 degrees, passive ER in scapular plane to at least 75 degrees, passive internal rotation in scapular plane to at least 75 degrees, and passive abduction to at least 90 degrees in the scapular plane. STG Duration 6 wks [facility] Goal (LTG) Patient to return to full active motion left shoulder LTG Duration 6 months One Impairment pain Short Term Goal (STG) Decrease pain to no greater than 3/10 STG Duration 6 wks Clinical Staff Educator Goal (LTG) Decrease pain to no greater than 1/10 with functional use of left UE LTG Duration 6 months Physical Therapy Plan Frequency and Duration Frequency of Treatment 2x/Week Duration of Treatment 12 wks Plan of Care Start Date 06/16/19 Plan of Care End Date 09/16/19 Therapeutic Interventions Therapeutic Interventions Aquatic Therapy,Home Exercise Program,Manual Therapy, Neuromuscular Re-education, Self-Care/Home Management,Soft Tissue Mobilization,Taping, Therapeutic Activities, Therapeutic Exercises Modalities Cold Pack/Ice Massage,Electric Stimulation,Hot Packs Next Visit Focus/Plan Next Note Type Treatment Note Next Visit Plan Continue PT per protocol pending recommendations from physician after follow-up appointment tomorrow.
--- NOTE | 2019-08-03 14:25 | PT-OP ANOTE ---
Patient cancelled PT appointment.
--- NOTE | 2019-08-05 20:01 | PT.OTN ---
Current Diagnoses Primary osteoarthritis, left shoulder (08/05/19) Pain in left shoulder (08/05/19) Impingement syndrome of left shoulder (08/05/19) Weakness (08/05/19) Encounter for other orthopedic aftercare (08/05/19) Physical Therapy Treatment Note PT-OP-A Visit Information Start: 06/16/19 13:49 Freq: Status: Active Protocol: Document 08/05/19 15:17 [facility] (Rec: 08/05/19 16:05 [facility] [id number]) Out-Patient Physical Therapy Visit Information Visit Information Visit Type Treatment Note Visit Start Time 15:15 Visit Stop Time 16:11 Total Visit Minutes 56 Visit Number 8 Number of SUPERVISOR CLAM BED Visits [address] Precautions Precautions Saw Dr. Blanchard 07/31; no resistance or strength training until after has MRI PT-OP-B Current Condition Start: 06/16/19 13:49 Freq: Status: Active Protocol: Document 06/16/19 15:03 [facility] (Rec: 06/19/19 15:27 [facility] [id number]) Current Condition History of Current Condition Onset Date 06/11/19 Current Complaints left shoulder pain and immobiity History of Current Condition Underwent left shoulder arthroscopic subacromial decompression with distal clavicle excision, arthroscopic extensive debridement, and partila rotator cuff repair. In surgery there was found to be significant tearing of the labrum with maority of the labrum being pulled off the glenoid and signs of a previous proximal biceps rupture. Patient reports she has been wearing the sling 24 hours a day at this time including to sleep as instructed. Doing some icing of left shoulder. is going to have back surgery and patient reports she needs to recover so she can help him with his recovery after surgery. Future Testing and Treatments Planned Patient returns to see Dr. Lyman 06/22/19 prior to next PT session Treatment Goals Patient/Caregiver Goals Regain full use of her left UE Prior Functional Status Baseline Function- ADL's Modified Independent Baseline Function- Mobility Modified Independent Baseline Function- Other painful with use of left LE Current Functional Impairments (Reported) Functional Limitations- ADL's unable to use left UE Personal Factors Other Personal Factors That May Effect Reports clumsy, not Therapy/Recovery able to help with PROM of her shoulder. 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 States shoulder feels ok, but doctor wants to check. Lumbar injection 08/27/19. PT-OP-H Neuro Start: 06/16/19 13:49 Freq: Status: Active Protocol: Document 06/16/19 15:03 [facility] (Rec: 06/19/19 15:27 [facility] [id number]) Sensation Evaluation Gross Sensation Gross Sensation WNL Comments Summary Comments denied N/T PT-OP-J Posture/Palpation/Skin Start: 06/16/19 13:49 Freq: Status: Active Protocol: Document 06/16/19 15:03 [facility] (Rec: 06/19/19 15:27 [facility] [id number]) Posture Evaluation Position Sitting Head/C-Spine Posture Forward Head Shoulder Posture (L) Rounded,(R) Rounded Scapula Posture (L) Protracted,(R) Protracted Palpation Assessment Location left UT Palpation Findings Muscle Guarding Skin Assessment Incisional Assessment Incision Appearance/Comments covered with post-op dressing. No signs or symptoms of infection. PT-OP-K Range of Motion Start: 06/16/19 13:49 Freq: Status: Active Protocol: Document 06/16/19 15:03 [facility] (Rec: 06/19/19 15:27 [facility] [id number]) Cervical Spine Range of Motion Cervical Spine Active Testing Position Sitting ROM Limitations Soft Tissue Tightness Comments mild limitations most with right SB Shoulder Goniometric Range of Motion Shoulder Left Passive Shoulder ROM WFL No Testing Position Supine Flexion 50 Extension 0 Abduction 20 External Rotation at 45 degrees 25 Abduction Internal Rotation 20 Right Active Shoulder ROM WFL Yes Shoulder ROM Limitations Shoulder ROM Limitations Pain Comments No AROM due to orthopedic precautions Elbow/Forearm Range of Motion Elbow/Forearm Left Active Elbow/Forearm ROM WFL No ROM Testing Position Sitting Elbow Flexion (degrees) 135 Elbow Extension (degrees) 10 Right Active Elbow/Forearm ROM WFL Yes ROM Testing Position Sitting Elbow/Forearm ROM Limitations Elbow/Forearm ROM Limitations Soft Tissue Tightness,Pain Wrist Goniometric Range of Motion Wrist gerry Wrist ROM WFL Yes PT-OP-M Strength Start: 06/16/19 13:49 Freq: Status: Active Protocol: Document 06/16/19 15:03 [facility] (Rec: 06/19/19 15:27 [facility] [id number]) Shoulder Strength Shoulder Manual Muscle Testing Left Reason Not Measured Orthopedic Precautions Right Reason Not Measured WFL PT-OP-Q Treatments Start: 06/16/19 13:49 Freq: Status: Active Protocol: Document 08/05/19 15:17 [facility] (Rec: 08/05/19 20:01 [facility] [id number]) Therapeutic Exercises Supine Exercises shoulder IR/ER Reps/Minutes 10x2 Comments AAROM, AROM shoulder flex Equipment Used wand Reps/Minutes 10x chest press Equipment Used wand Reps/Minutes 10x Sitting Exercises pulleys shoulder scaption Reps/Minutes 10x Levator scap stretch Reps/Minutes 1x UT stretch Reps/Minutes 1x pulleys shoulder flex Reps/Minutes 10x Standing Exercises shoulder flex wall slide Equipment Used furniture sliders Reps/Minutes 12x shoulder extension Equipment Used wand Reps/Minutes 10x Manual Therapy Treatment Soft Tissue Mobilization 1 Body Location left UT, lev scap, rhomboids, bicep, scar Mobilization Type Myofascial Release,Rolling, Strumming Intensity/Depth Moderate Body Position Hooklying Joint Mobilizations scapulothoracic Direction medial, lateral, inf, sup glides Grade III Body Position Sidelying Reps/Duration 5 min Self-Care/Home Management Treatment Education Patient Education Home Exercise Program,Joint Protection,Pain Management, Posture PT-OP-R Modalities Start: 06/16/19 13:49 Freq: Status: Active Protocol: Document 08/05/19 15:17 [facility] (Rec: 08/05/19 20:01 [facility] [id number]) Electric Stimulation Electric Stimulation Interferential Current (IFC) Body Location left shoulder Duration (Minutes) 12 Intensity 17 Target/Sweep Sweep Patient Position Hooklying Combined With Heat/Cold Cold Pack Hot Pack/Cold Pack Treatment Hot Pack Location left shoulder Patient Position Hooklying Treatment Duration (minutes) 15 Comments manual treatment to biceps, upper traps during PT-OP-S Aquatic Treatment Start: 06/16/19 13:49 Freq: Status: Active Protocol: Document 07/27/19 12:30 [facility] (Rec: 07/28/19 10:27 [facility] [id number]) Aquatics Treatment Pool Entry/Exit Assistance Independent Water Walking Sideways Water Level Neck Level Level of Assistance Verbal Cues Comments with shoulder ab/ad baclward Water Level Neck Level Level of Assistance Verbal Cues Comments reverse breastroke UE's forward Water Level Neck Level Level of Assistance Verbal Cues Comments breastroke and alternating UE' s Upper Extremity Exercises shoulder isometrics all planes Body Position Standing Water Level Neck Level Reps/Duration 10x elbow flex/ext Body Position Standing Water Level Neck Level shoulder circles Body Position Standing Water Level Neck Level Reps/Duration 10x Comments arms in water shoulder IR/ER Body Position Standing Water Level Chest Level Reps/Duration 10x Comments arms in water shoulder flex/ext Reps/Duration 10x Comments arms remain in water hor ab/ad Body Position Standing Water Level Neck Level Reps/Duration 10x Comments arms remain in water [place] Activities [place] Activities Bicycle Comments with gentle breastroke UE's Manual Techniques Bad Ragaz for passive thoracic and shoulder ROM (yellow neck float, LE floats) Aquatic Massage left UT, scapular musculature, biceps, deltoid PT-OP-T Assessment and Plan Start: 06/16/19 13:49 Freq: Status: Active Protocol: Document 08/05/19 15:17 [facility] (Rec: 08/05/19 16:05 [facility] [id number]) Physical Therapy Assessment Goals Five Impairment knowledge deficit Short Term Goal (STG) instruct in post-op protocol for left shoulder rehab, assure understanding of precautions. Will be independent and compliant with HEP, with assistance of STG Duration ongoing [facility] Goal (LTG) Patient to be independent and compliant with HEP, possibly aquatic exercise program. LTG Duration 6 months Four Impairment functional activities. Short Term Goal (STG) patient to wear sling except for during exercises, no active use per protocol STG Duration 6 wks [facility] Goal (LTG) Patient able to return to full functional use of left UE with minimal pain including reaching overhead and behind her back. LTG Duration 6 months Three Impairment strength Payer Specialist Goal (LTG) Patient to demonstrate at least 4+/5 muscle strength throughout left shoulder LTG Duration 6 months Two Impairment ROM Short Term Goal (STG) Improve passive left shoulder forward flexion to at least 125 degrees, passive ER in scapular plane to at least 75 degrees, passive internal rotation in scapular plane to at least 75 degrees, and passive abduction to at least 90 degrees in the scapular plane. STG Duration 6 wks Payer Specialist Goal (LTG) Patient to return to full active motion left shoulder LTG Duration 6 months One Impairment pain Short Term Goal (STG) Decrease pain to no greater than 3/10 STG Duration 6 wks [facility] Goal (LTG) Decrease pain to no greater than 1/10 with functional use of left UE LTG Duration 6 months Assessment Summary Assessment Fair tolerance for ther ex, needs cues to prevent overactivation of upper traps with left UE elevation. Patient tolerated ther ex well with cues to exercise in pain -free ROM. Decreased pain with scapulothoracic mob in sidelying Physical Therapy Plan Frequency and Duration Frequency of Treatment 2x/Week Duration of Treatment 12 wks Plan of Care Start Date 06/16/19 Plan of Care End Date 09/16/19 Therapeutic Interventions Therapeutic Interventions Aquatic Therapy,Home Exercise Program,Manual Therapy, Neuromuscular Re-education, Self-Care/Home Management,Soft Tissue Mobilization,Taping, Therapeutic Activities, Therapeutic Exercises Modalities Cold Pack/Ice Massage,Electric Stimulation,Hot Packs Next Visit Focus/Plan Next Note Type Treatment Note Next Visit Plan Continue PT per physician recommendations; no resistance or strengthening per patient ( she will take picture of new recommendations and send to PT).
--- NOTE | 2019-08-12 15:41 | PT.OTN ---
Current Diagnoses Primary osteoarthritis, left shoulder (08/12/19) Pain in left shoulder (08/12/19) Impingement syndrome of left shoulder (08/12/19) Weakness (08/12/19) Encounter for other orthopedic aftercare (08/12/19) Physical Therapy Treatment Note PT-OP-A Visit Information Start: 06/16/19 13:49 Freq: Status: Active Protocol: Document 08/12/19 14:26 [facility] (Rec: 08/12/19 15:25 [facility] [id number]) Out-Patient Physical Therapy Visit Information Visit Information Visit Type Treatment Note Visit Start Time 14:30 Visit Stop Time 15:25 Total Visit Minutes 55 Visit Number 9 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 Blanchard 07/31; no resistance or strength training until after has MRI; now rescheduled for 08/20/19. PT-OP-B Current Condition Start: 06/16/19 13:49 Freq: Status: Active Protocol: Document 06/16/19 15:03 [facility] (Rec: 06/19/19 15:27 [facility] [id number]) Current Condition History of Current Condition Onset Date 06/11/19 Current Complaints left shoulder pain and immobiity History of Current Condition Underwent left shoulder arthroscopic subacromial decompression with distal clavicle excision, arthroscopic extensive debridement, and partila rotator cuff repair. In surgery there was found to be significant tearing of the labrum with maority of the labrum being pulled off the glenoid and signs of a previous proximal biceps rupture. Patient reports she has been wearing the sling 24 hours a day at this time including to sleep as instructed. Doing some icing of left shoulder. is going to have back surgery and patient reports she needs to recover so she can help him with his recovery after surgery. Future Testing and Treatments Planned Patient returns to see Dr. Lyman 06/22/19 prior to next PT session Treatment Goals Patient/Caregiver Goals Regain full use of her left UE Prior Functional Status Baseline Function- ADL's Modified Independent Baseline Function- Mobility Modified Independent Baseline Function- Other painful with use of left LE Current Functional Impairments (Reported) Functional Limitations- ADL's unable to use left UE Personal Factors Other Personal Factors That May Effect Reports clumsy, not Therapy/Recovery able to help with PROM of her shoulder. PT-OP-C Subjective Start: 06/16/19 13:49 Freq: Status: Active Protocol: Document 08/12/19 14:26 [facility] (Rec: 08/12/19 15:25 [facility] [id number]) OP-PT Subjective Patient Comments Patient Comments MRI rescheduled for 08/20/19. Patient reports moderate pain lateral left shoulder, states her has to remind her a lot not to overdo; she states she recently pulled with left UE to get up off couch PT-OP-H Neuro Start: 06/16/19 13:49 Freq: Status: Active Protocol: Document 06/16/19 15:03 [facility] (Rec: 06/19/19 15:27 [facility] [id number]) Sensation Evaluation Gross Sensation Gross Sensation WNL Comments Summary Comments denied N/T PT-OP-J Posture/Palpation/Skin Start: 06/16/19 13:49 Freq: Status: Active Protocol: Document 06/16/19 15:03 [facility] (Rec: 06/19/19 15:27 [facility] [id number]) Posture Evaluation Position Sitting Head/C-Spine Posture Forward Head Shoulder Posture (L) Rounded,(R) Rounded Scapula Posture (L) Protracted,(R) Protracted Palpation Assessment Location left UT Palpation Findings Muscle Guarding Skin Assessment Incisional Assessment Incision Appearance/Comments covered with post-op dressing. No signs or symptoms of infection. PT-OP-K Range of Motion Start: 06/16/19 13:49 Freq: Status: Active Protocol: Document 06/16/19 15:03 [facility] (Rec: 06/19/19 15:27 [facility] [id number]) Cervical Spine Range of Motion Cervical Spine Active Testing Position Sitting ROM Limitations Soft Tissue Tightness Comments mild limitations most with right SB Shoulder Goniometric Range of Motion Shoulder Left Passive Shoulder ROM WFL No Testing Position Supine Flexion 50 Extension 0 Abduction 20 External Rotation at 45 degrees 25 Abduction Internal Rotation 20 Right Active Shoulder ROM WFL Yes Shoulder ROM Limitations Shoulder ROM Limitations Pain Comments No AROM due to orthopedic precautions Elbow/Forearm Range of Motion Elbow/Forearm Left Active Elbow/Forearm ROM WFL No ROM Testing Position Sitting Elbow Flexion (degrees) 135 Elbow Extension (degrees) 10 Right Active Elbow/Forearm ROM WFL Yes ROM Testing Position Sitting Elbow/Forearm ROM Limitations Elbow/Forearm ROM Limitations Soft Tissue Tightness,Pain Wrist Goniometric Range of Motion Wrist gerry Wrist ROM WFL Yes PT-OP-M Strength Start: 06/16/19 13:49 Freq: Status: Active Protocol: Document 06/16/19 15:03 [facility] (Rec: 06/19/19 15:27 [facility] [id number]) Shoulder Strength Shoulder Manual Muscle Testing Left Reason Not Measured Orthopedic Precautions Right Reason Not Measured WFL PT-OP-Q Treatments Start: 06/16/19 13:49 Freq: Status: Active Protocol: Document 08/12/19 14:26 [facility] (Rec: 08/12/19 15:40 [facility] [id number]) Therapeutic Exercises Supine Exercises pec stretch Side bilateral Comments manual serratus punch Reps/Minutes 10x shoulder IR/ER Equipment Used towel roll Reps/Minutes 10x2 Comments AAROM, AROM shoulder flex Reps/Minutes 10x Comments AAROM PROM all planes Supine Exercise Name AAROM left shoulder all planes of movement Side left Reps/Minutes 10 x ea Sitting Exercises Levator scap stretch Reps/Minutes 1x UT stretch Reps/Minutes 1x Manual Therapy Treatment Soft Tissue Mobilization 1 Body Location left UT, lev scap, rhomboids, bicep, scar Mobilization Type Myofascial Release,Rolling, Strumming Intensity/Depth Moderate Body Position Hooklying Joint Mobilizations scapulothoracic Direction medial, lateral, inf, sup glides Grade III Body Position Sidelying Reps/Duration 5 min Self-Care/Home Management Treatment Education Patient Education Home Exercise Program,Joint Protection,Pain Management, Posture PT-OP-R Modalities Start: 06/16/19 13:49 Freq: Status: Active Protocol: Document 08/12/19 14:26 [facility] (Rec: 08/12/19 15:25 [facility] [id number]) Electric Stimulation Electric Stimulation Interferential Current (IFC) Body Location left shoulder Duration (Minutes) 12 Intensity 17 Target/Sweep Sweep Patient Position Hooklying Combined With Heat/Cold Cold Pack Hot Pack/Cold Pack Treatment Hot Pack Location left shoulder Patient Position Hooklying Treatment Duration (minutes) 15 Comments manual treatment to biceps, upper traps during MH PT-OP-S Aquatic Treatment Start: 06/16/19 13:49 Freq: Status: Active Protocol: Document 07/27/19 12:30 [facility] (Rec: 07/28/19 10:27 [facility] [id number]) Aquatics Treatment Pool Entry/Exit Assistance Independent Water Walking Sideways Water Level Neck Level Level of Assistance Verbal Cues Comments with shoulder ab/ad baclward Water Level Neck Level Level of Assistance Verbal Cues Comments reverse breastroke UE's forward Water Level Neck Level Level of Assistance Verbal Cues Comments breastroke and alternating UE' s Upper Extremity Exercises shoulder isometrics all planes Body Position Standing Water Level Neck Level Reps/Duration 10x elbow flex/ext Body Position Standing Water Level Neck Level shoulder circles Body Position Standing Water Level Neck Level Reps/Duration 10x Comments arms in water shoulder IR/ER Body Position Standing Water Level Chest Level Reps/Duration 10x Comments arms in water shoulder flex/ext Reps/Duration 10x Comments arms remain in water hor ab/ad Body Position Standing Water Level Neck Level Reps/Duration 10x Comments arms remain in water [place] [employer] [place] Activities Bicycle Comments with gentle breastroke UE's Manual Techniques Bad Ragaz for passive thoracic and shoulder ROM (yellow neck float, LE floats) Aquatic Massage left UT, scapular musculature, biceps, deltoid PT-OP-T Assessment and Plan Start: 06/16/19 13:49 Freq: Status: Active Protocol: Document 08/12/19 14:26 [facility] (Rec: 08/12/19 15:25 [facility] [id number]) Physical Therapy Assessment Goals Five Impairment knowledge deficit Short Term Goal (STG) instruct in post-op protocol for left shoulder rehab, assure understanding of precautions. Will be independent and compliant with HEP, with assistance of STG Duration ongoing It Infrastructure Engineer Goal (LTG) Patient to be independent and compliant with HEP, possibly aquatic exercise program. LTG Duration 6 months Four Impairment functional activities. Short Term Goal (STG) patient to wear sling except for during exercises, no active use per protocol STG Duration 6 wks It Infrastructure Engineer Goal (LTG) Patient able to return to full functional use of left UE with minimal pain including reaching overhead and behind her back. LTG Duration 6 months Three Impairment strength Shelter Goal (LTG) Patient to demonstrate at least 4+/5 muscle strength throughout left shoulder LTG Duration 6 months Two Impairment ROM Short Term Goal (STG) Improve passive left shoulder forward flexion to at least 125 degrees, passive ER in scapular plane to at least 75 degrees, passive internal rotation in scapular plane to at least 75 degrees, and passive abduction to at least 90 degrees in the scapular plane. STG Duration 6 wks It Infrastructure Engineer Goal (LTG) Patient to return to full active motion left shoulder LTG Duration 6 months One Impairment pain Short Term Goal (STG) Decrease pain to no greater than 3/10 STG Duration 6 wks Shelter Goal (LTG) Decrease pain to no greater than 1/10 with functional use of left UE LTG Duration 6 months Assessment Summary Assessment Patient reported decreased pain with PT; majority of time spent on manual treatment and AAROM left shoulder with scapular mobilization and facilitation to prevent impingment. MRI postponed, reason uncertain. Physical Therapy Plan Frequency and Duration Frequency of Treatment 2x/Week Duration of Treatment 12 wks Plan of Care Start Date 06/16/19 Plan of Care End Date 09/16/19 Therapeutic Interventions Therapeutic Interventions Aquatic Therapy,Home Exercise Program,Manual Therapy, Neuromuscular Re-education, Self-Care/Home Management,Soft Tissue Mobilization,Taping, Therapeutic Activities, Therapeutic Exercises Modalities Cold Pack/Ice Massage,Electric Stimulation,Hot Packs Next Visit Focus/Plan Next Note Type Treatment Note Next Visit Plan Continue PT per physician recommendations; no resistance or strengthening until after MRI 08/20/19.
--- NOTE | 2019-08-26 12:01 | PT.OTN ---
Current Diagnoses Primary osteoarthritis, left shoulder (08/26/19) Pain in left shoulder (08/26/19) Impingement syndrome of left shoulder (08/26/19) Weakness (08/26/19) Encounter for other orthopedic aftercare (08/26/19) Physical Therapy Treatment Note PT-OP-A Visit Information Start: 06/16/19 13:49 Freq: Status: Active Protocol: Document 08/26/19 11:23 [facility] (Rec: 08/26/19 12:01 [facility] [id number]) Out-Patient Physical Therapy Visit Information Visit Information Visit Type Treatment Note Visit Start Time 10:30 Visit Stop Time 11:15 PT-OP-B Current Condition Start: 06/16/19 13:49 Freq: Status: Active Protocol: Document 06/16/19 15:03 [facility] (Rec: 06/19/19 15:27 [facility] [id number]) Current Condition History of Current Condition Onset Date 06/11/19 Current Complaints left shoulder pain and immobiity History of Current Condition Underwent left shoulder arthroscopic subacromial decompression with distal clavicle excision, arthroscopic extensive debridement, and partila rotator cuff repair. In surgery there was found to be significant tearing of the labrum with maority of the labrum being pulled off the glenoid and signs of a previous proximal biceps rupture. Patient reports she has been wearing the sling 24 hours a day at this time including to sleep as instructed. Doing some icing of left shoulder. is going to have back surgery and patient reports she needs to recover so she can help him with his recovery after surgery. Future Testing and Treatments Planned Patient returns to see Dr. Lyman 06/22/19 prior to next PT session Treatment Goals Patient/Caregiver Goals Regain full use of her left UE Prior Functional Status Baseline Function- ADL's Modified Independent Baseline Function- Mobility Modified Independent Baseline Function- Other painful with use of left LE Current Functional Impairments (Reported) Functional Limitations- ADL's unable to use left UE Personal Factors Other Personal Factors That May Effect Reports clumsy, not Therapy/Recovery able to help with PROM of her shoulder. PT-OP-C Subjective Start: 06/16/19 13:49 Freq: Status: Active Protocol: Document 08/26/19 11:23 [facility] (Rec: 08/26/19 12:01 [facility] [id number]) OP-PT Subjective Patient Comments Patient Comments Pt reports doing better, pain level 3/10 pre PT visit today. No new concerns or changes since last tx. Pt stated is is helping with PROM and gives feedback for allowable ROM and tolerance for L shld and performs AROM of elbow and hand strengthening with tamiko putty at home. Pt stated might call physician's office to see if can start doing more activity, exercises to progress. PT-OP-H Neuro Start: 06/16/19 13:49 Freq: Status: Active Protocol: Document 06/16/19 15:03 [facility] (Rec: 06/19/19 15:27 [facility] [id number]) Sensation Evaluation Gross Sensation Gross Sensation WNL Comments Summary Comments denied N/T PT-OP-J Posture/Palpation/Skin Start: 06/16/19 13:49 Freq: Status: Active Protocol: Document 06/16/19 15:03 [facility] (Rec: 06/19/19 15:27 [facility] [id number]) Posture Evaluation Position Sitting Head/C-Spine Posture Forward Head Shoulder Posture (L) Rounded,(R) Rounded Scapula Posture (L) Protracted,(R) Protracted Palpation Assessment Location left UT Palpation Findings Muscle Guarding Skin Assessment Incisional Assessment Incision Appearance/Comments covered with post-op dressing. No signs or symptoms of infection. PT-OP-K Range of Motion Start: 06/16/19 13:49 Freq: Status: Active Protocol: Document 06/16/19 15:03 [facility] (Rec: 06/19/19 15:27 [facility] [id number]) Cervical Spine Range of Motion Cervical Spine Active Testing Position Sitting ROM Limitations Soft Tissue Tightness Comments mild limitations most with right SB Shoulder Goniometric Range of Motion Shoulder Left Passive Shoulder ROM WFL No Testing Position Supine Flexion 50 Extension 0 Abduction 20 External Rotation at 45 degrees 25 Abduction Internal Rotation 20 Right Active Shoulder ROM WFL Yes Shoulder ROM Limitations Shoulder ROM Limitations Pain Comments No AROM due to orthopedic precautions Elbow/Forearm Range of Motion Elbow/Forearm Left Active Elbow/Forearm ROM WFL No ROM Testing Position Sitting Elbow Flexion (degrees) 135 Elbow Extension (degrees) 10 Right Active Elbow/Forearm ROM WFL Yes ROM Testing Position Sitting Elbow/Forearm ROM Limitations Elbow/Forearm ROM Limitations Soft Tissue Tightness,Pain Wrist Goniometric Range of Motion Wrist gerry Wrist ROM WFL Yes PT-OP-M Strength Start: 06/16/19 13:49 Freq: Status: Active Protocol: Document 06/16/19 15:03 [facility] (Rec: 06/19/19 15:27 [facility] [id number]) Shoulder Strength Shoulder Manual Muscle Testing Left Reason Not Measured Orthopedic Precautions Right Reason Not Measured WFL PT-OP-Q Treatments Start: 06/16/19 13:49 Freq: Status: Active Protocol: Document 08/26/19 11:23 [facility] (Rec: 08/26/19 12:01 [facility] [id number]) Therapeutic Exercises Supine Exercises PROM all planes Supine Exercise Name AAROM left shoulder all planes of movement Side left Reps/Minutes 10 x ea Sidelying Exercises PNF Sidelying Exercise Name AAROM PNF scap retraction Side left Reps/Minutes 5 sec hold 2 x10 Comments contact and verbal cues for decreased UT recruitment (shld elevation) Sitting Exercises shoulder ER Sitting Exercise Name AAROM L shld ER Side left Reps/Minutes x10 Comments cued elbow at side, up at door frame elbow flex/ext Sitting Exercise Name AROM elbow flex/ext Side left hand open/close Sitting Exercise Name threat analyst squeezing (silly putty at home) Side left Reps/Minutes 3x10 Manual Therapy Treatment Soft Tissue Mobilization 1 Body Location Scar mob Mobilization Type Cross-Friction Intensity/Depth Moderate Body Position Hooklying Joint Mobilizations scapulothoracic Direction medial, lateral, inf, sup glides Grade III Body Position Sidelying Reps/Duration 5 min PT-OP-R Modalities Start: 06/16/19 13:49 Freq: Status: Active Protocol: Document 08/26/19 11:23 [facility] (Rec: 08/26/19 12:01 [facility] [id number]) Electric Stimulation Electric Stimulation Interferential Current (IFC) Body Location L shld Duration (Minutes) 12 Intensity 15 Target/Sweep Sweep Patient Position Supine Combined With Heat/Cold Hot Pack PT-OP-S Aquatic Treatment Start: 06/16/19 13:49 Freq: Status: Active Protocol: Document 07/27/19 12:30 [facility] (Rec: 07/28/19 10:27 [facility] [id number]) Aquatics Treatment Pool Entry/Exit Assistance Independent Water Walking Sideways Water Level Neck Level Level of Assistance Verbal Cues Comments with shoulder ab/ad baclward Water Level Neck Level Level of Assistance Verbal Cues Comments reverse breastroke UE's forward Water Level Neck Level Level of Assistance Verbal Cues Comments breastroke and alternating UE' s Upper Extremity Exercises shoulder isometrics all planes Body Position Standing Water Level Neck Level Reps/Duration 10x elbow flex/ext Body Position Standing Water Level Neck Level shoulder circles Body Position Standing Water Level Neck Level Reps/Duration 10x Comments arms in water shoulder IR/ER Body Position Standing Water Level Chest Level Reps/Duration 10x Comments arms in water shoulder flex/ext Reps/Duration 10x Comments arms remain in water hor ab/ad Body Position Standing Water Level Neck Level Reps/Duration 10x Comments arms remain in water [place] Activities [place] Activities Bicycle Comments with gentle breastroke UE's Manual Techniques Bad Ragaz for passive thoracic and shoulder ROM (yellow neck float, LE floats) Aquatic Massage left UT, scapular musculature, biceps, deltoid PT-OP-T Assessment and Plan Start: 06/16/19 13:49 Freq: Status: Active Protocol: Document 08/26/19 11:23 [facility] (Rec: 08/26/19 12:01 [facility] [email or web address]) Physical Therapy Assessment Assessment Summary Assessment Pt reproted decreased pain with PT, scap retraction med border scap understood better felt good to do, Majority of tx spend on AAROM of L shld. Physical Therapy Plan Frequency and Duration Frequency of Treatment 2x/Week Duration of Treatment 12 wks Plan of Care Start Date 06/16/19 Plan of Care End Date 09/16/19 Therapeutic Interventions Therapeutic Interventions Aquatic Therapy,Home Exercise Program,Manual Therapy, Neuromuscular Re-education, Self-Care/Home Management,Soft Tissue Mobilization,Taping, Therapeutic Activities, Therapeutic Exercises Modalities Cold Pack/Ice Massage,Electric Stimulation,Hot Packs Next Visit Focus/Plan Next Note Type Treatment Note Next Visit Plan Continue PT per physician recommendations; no resistance or strengthening until after MRI 08/20/19.
--- NOTE | 2019-09-02 12:38 | PT.OTN ---
Current Diagnoses Primary osteoarthritis, left shoulder (09/02/19) Pain in left shoulder (09/02/19) Impingement syndrome of left shoulder (09/02/19) Weakness (09/02/19) Encounter for other orthopedic aftercare (09/02/19) Physical Therapy Treatment Note PT-OP-A Visit Information Start: 06/16/19 13:49 Freq: Status: Active Protocol: Document 09/02/19 10:50 SP (Rec: 09/02/19 12:37 SP [email or web address]) Out-Patient Physical Therapy Visit Information Precautions Precautions Saw Dr. Blanchard 07/31; no resistance or strength training until after has MRI; now rescheduled for 08/20/19. Follows up with Dr. Blanchard this sat09/04/2019. PT-OP-B Current Condition Start: 06/16/19 13:49 Freq: Status: Active Protocol: Document 06/16/19 15:03 SAK (Rec: 06/19/19 15:27 SAK [id number]) Current Condition History of Current Condition Onset Date 06/11/19 Current Complaints left shoulder pain and immobiity History of Current Condition Underwent left shoulder arthroscopic subacromial decompression with distal clavicle excision, arthroscopic extensive debridement, and partila rotator cuff repair. In surgery there was found to be significant tearing of the labrum with maority of the labrum being pulled off the glenoid and signs of a previous proximal biceps rupture. Patient reports she has been wearing the sling 24 hours a day at this time including to sleep as instructed. Doing some icing of left shoulder. is going to have back surgery and patient reports she needs to recover so she can help him with his recovery after surgery. Future Testing and Treatments Planned Patient returns to see Dr. Lyman 06/22/19 prior to next PT session Treatment Goals Patient/Caregiver Goals Regain full use of her left UE Prior Functional Status Baseline Function- ADL's Modified Independent Baseline Function- Mobility Modified Independent Baseline Function- Other painful with use of left LE Current Functional Impairments (Reported) Functional Limitations- ADL's unable to use left UE Personal Factors Other Personal Factors That May Effect Reports clumsy, not Therapy/Recovery able to help with PROM of her shoulder. PT-OP-C Subjective Start: 06/16/19 13:49 Freq: Status: Active Protocol: Document 09/02/19 10:50 SP (Rec: 09/02/19 12:37 SP [email or web address]) OP-PT Subjective Patient Comments Patient Comments Pt reports had a fall over since last tx when got during the night, rug slipped under her hitting her L lateral shld on the wall. Pt stated low level pain/soreness (no rating provided) over L lateral neck and distal L deltoid. Patient Reported Progress Same PT-OP-H Neuro Start: 06/16/19 13:49 Freq: Status: Active Protocol: Document 06/16/19 15:03 SAK (Rec: 06/19/19 15:27 SAK [id number]) Sensation Evaluation Gross Sensation Gross Sensation WNL Comments Summary Comments denied N/T PT-OP-J Posture/Palpation/Skin Start: 06/16/19 13:49 Freq: Status: Active Protocol: Document 06/16/19 15:03 SAK (Rec: 06/19/19 15:27 SAK [id number]) Posture Evaluation Position Sitting Head/C-Spine Posture Forward Head Shoulder Posture (L) Rounded,(R) Rounded Scapula Posture (L) Protracted,(R) Protracted Palpation Assessment Location left [place] Palpation Findings Muscle Guarding Skin Assessment Incisional Assessment Incision Appearance/Comments covered with post-op dressing. No signs or symptoms of infection. PT-OP-K Range of Motion Start: 06/16/19 13:49 Freq: Status: Active Protocol: Document 09/02/19 10:50 SP (Rec: 09/02/19 12:37 SP [email or web address]) Shoulder Goniometric Range of Motion Shoulder Left Passive Testing Position Supine Flexion 130 Abduction 98 External Rotation at 0 degrees Abduction 49 Internal Rotation Behind Back (text) L1 PT-OP-M Strength Start: 06/16/19 13:49 Freq: Status: Active Protocol: Document 06/16/19 15:03 SAK (Rec: 06/19/19 15:27 SAK [id number]) Shoulder Strength Shoulder Manual Muscle Testing Left Reason Not Measured Orthopedic Precautions Right Reason Not Measured WFL PT-OP-Q Treatments Start: 06/16/19 13:49 Freq: Status: Active Protocol: Document 09/02/19 10:50 SP (Rec: 09/02/19 12:37 SP [email or web address]) Therapeutic Exercises Supine Exercises Alma MCCARTY Supine Exercise Name FF, ABD, ER Side bilateral Equipment Used dowel Reps/Minutes x10 shoulder flex Reps/Minutes 10x Comments AAROM PROM all planes Supine Exercise Name AAROM left shoulder all planes of movement Side left Reps/Minutes 10 x ea Standing Exercises Upper trap stretch Side left Reps/Minutes 5 sec hold x3 scapular retraction Resistance AROM Reps/Minutes 5 sec hold x10 dowel IR Standing Exercise Name IR reaching across back and slide up back Equipment Used dowel Reps/Minutes x5 Comments DNF and trunk posture awareness, within tolerance, not over pressure. PT-OP-R Modalities Start: 06/16/19 13:49 Freq: Status: Active Protocol: Document 08/26/19 11:23 SP (Rec: 08/26/19 12:01 SP [email or web address]) Electric Stimulation Electric Stimulation Interferential Current (IFC) Body Location L shld Duration (Minutes) 12 Intensity 15 Target/Sweep Sweep Patient Position Supine Combined With Heat/Cold Hot Pack PT-OP-S Aquatic Treatment Start: 06/16/19 13:49 Freq: Status: Active Protocol: Document 07/27/19 12:30 SAK (Rec: 07/28/19 10:27 SAK [id number]) Aquatics Treatment Pool Entry/Exit Assistance Independent Water Walking Sideways Water Level Neck Level Level of Assistance Verbal Cues Comments with shoulder ab/ad baclward Water Level Neck Level Level of Assistance Verbal Cues Comments reverse breastroke UE's forward Water Level Neck Level Level of Assistance Verbal Cues Comments breastroke and alternating UE' s Upper Extremity Exercises shoulder isometrics all planes Body Position Standing Water Level Neck Level Reps/Duration 10x elbow flex/ext Body Position Standing Water Level Neck Level shoulder circles Body Position Standing Water Level Neck Level Reps/Duration 10x Comments arms in water shoulder IR/ER Body Position Standing Water Level Chest Level Reps/Duration 10x Comments arms in water shoulder flex/ext Reps/Duration 10x Comments arms remain in water hor ab/ad Body Position Standing Water Level Neck Level Reps/Duration 10x Comments arms remain in water [place] Activities [place] Activities Bicycle Comments with gentle breastroke UE's Manual Techniques Bad Ragaz for passive thoracic and shoulder ROM (yellow neck float, LE floats) Aquatic Massage left UT, scapular musculature, biceps, deltoid PT-OP-T Assessment and Plan Start: 06/16/19 13:49 Freq: Status: Active Protocol: Document 09/02/19 10:50 SP (Rec: 09/02/19 12:37 SP [email or web address]) Physical Therapy Assessment Assessment Summary Assessment Tx focused on AAROM to allow for donning her jacket. Pt reported less tightness in neck post tx. Cued for posture during standing ther ex to facilitate decreased shld elevation recruitment. Provided patient education on tacking down her rug or removing them for safety and reduce risk for further falls, Pt verbalized understanding. Physical Therapy Plan Frequency and Duration Frequency of Treatment 2x/Week Duration of Treatment 12 wks Plan of Care Start Date 06/16/19 Plan of Care End Date 09/16/19 Therapeutic Interventions Therapeutic Interventions Aquatic Therapy,Home Exercise Program,Manual Therapy, Neuromuscular Re-education, Self-Care/Home Management,Soft Tissue Mobilization,Taping, Therapeutic Activities, Therapeutic Exercises Modalities Cold Pack/Ice Massage,Electric Stimulation,Hot Packs Next Visit Focus/Plan Next Note Type Treatment Note Next Visit Plan Continue PT per physician recommendations; no resistance or strengthening until after MRI 08/20/19. Dr Blanchard appt .
--- NOTE | 2019-09-09 14:30 | PT.OTN ---
Current Diagnoses Primary osteoarthritis, left shoulder (09/09/19) Pain in left shoulder (09/09/19) Impingement syndrome of left shoulder (09/09/19) Weakness (09/09/19) Encounter for other orthopedic aftercare (09/09/19) Physical Therapy Treatment Note PT-OP-A Visit Information Start: 06/16/19 13:49 Freq: Status: Active Protocol: Document 09/09/19 09:00 NFW (Rec: 09/09/19 14:30 NFW [id number]) Out-Patient Physical Therapy Visit Information Visit Information Visit Type Treatment Note Visit Note New referral from surgeon for ROM and to start gentle strengthening. Visit Start Time 09:00 Visit Stop Time 09:55 Total Visit Minutes 55 Number of [employer] WORK[employer] Visits 0 PT-OP-B Current Condition Start: 06/16/19 13:49 Freq: Status: Active Protocol: Document 06/16/19 15:03 SAK (Rec: 06/19/19 15:27 SAK [id number]) Current Condition History of Current Condition Onset Date 06/11/19 Current Complaints left shoulder pain and immobiity History of Current Condition Underwent left shoulder arthroscopic subacromial decompression with distal clavicle excision, arthroscopic extensive debridement, and partila rotator cuff repair. In surgery there was found to be significant tearing of the labrum with maority of the labrum being pulled off the glenoid and signs of a previous proximal biceps rupture. Patient reports she has been wearing the sling 24 hours a day at this time including to sleep as instructed. Doing some icing of left shoulder. is going to have back surgery and patient reports she needs to recover so she can help him with his recovery after surgery. Future Testing and Treatments Planned Patient returns to see Dr. Lyman 06/22/19 prior to next PT session Treatment Goals Patient/Caregiver Goals Regain full use of her left UE Prior Functional Status Baseline Function- ADL's Modified Independent Baseline Function- Mobility Modified Independent Baseline Function- Other painful with use of left LE Current Functional Impairments (Reported) Functional Limitations- ADL's unable to use left UE Personal Factors Other Personal Factors That May Effect Reports clumsy, not Therapy/Recovery able to help with PROM of her shoulder. PT-OP-C Subjective Start: 06/16/19 13:49 Freq: Status: Active Protocol: Document 09/09/19 09:00 NFW (Rec: 09/09/19 14:30 NFW [id number]) OP-PT Subjective Patient Comments Patient Comments Patient better today. Saw surgeon after fall, no reinjury to shoulder. PT-OP-H Neuro Start: 06/16/19 13:49 Freq: Status: Active Protocol: Document 06/16/19 15:03 SAK (Rec: 06/19/19 15:27 SAK [id number]) Sensation Evaluation Gross Sensation Gross Sensation WNL Comments Summary Comments denied N/T PT-OP-J Posture/Palpation/Skin Start: 06/16/19 13:49 Freq: Status: Active Protocol: Document 06/16/19 15:03 SAK (Rec: 06/19/19 15:27 SAK [id number]) Posture Evaluation Position Sitting Head/C-Spine Posture Forward Head Shoulder Posture (L) Rounded,(R) Rounded Scapula Posture (L) Protracted,(R) Protracted Palpation Assessment Location left UT Palpation Findings Muscle Guarding Skin Assessment Incisional Assessment Incision Appearance/Comments covered with post-op dressing. No signs or symptoms of infection. PT-OP-K Range of Motion Start: 06/16/19 13:49 Freq: Status: Active Protocol: Document 09/02/19 10:50 SP (Rec: 09/02/19 12:37 SP [email or web address]) Shoulder Goniometric Range of Motion Shoulder Left Passive Testing Position Supine Flexion 130 Abduction 98 External Rotation at 0 degrees Abduction 49 Internal Rotation Behind Back (text) L1 PT-OP-M Strength Start: 06/16/19 13:49 Freq: Status: Active Protocol: Document 06/16/19 15:03 SAK (Rec: 06/19/19 15:27 SAK [id number]) Shoulder Strength Shoulder Manual Muscle Testing Left Reason Not Measured Orthopedic Precautions Right Reason Not Measured WFL PT-OP-Q Treatments Start: 06/16/19 13:49 Freq: Status: Active Protocol: Document 09/09/19 09:00 NFW (Rec: 09/09/19 14:30 NFW [id number]) Cardio Equipment Upper Body Ergometer (UBE) Duration (Minutes) 2 Other 1 min each direction, min resistance Therapeutic Exercises Supine Exercises 1 Supine Exercise Name Bench Press Side left Resistance 2 lb Reps/Minutes 10 Sidelying Exercises 1 Sidelying Exercise Name PRE - ER w/ 1# wt to neutral Side left Resistance 1# wt Reps/Minutes 10 Other Exercises 2 Other Exercise Name Shlder IR & ER Side left Resistance Level 1 Equipment Used Tband Reps/Minutes 10 reps each Comments Short arc 1 Other Exercise Name Shlder extension then add to side only Side left Resistance Level 1 Equipment Used Tband Reps/Minutes 10 reps each Comments Short range, band to side of thigh Manual Therapy Treatment Manual Techniques 3 Type Long [place] Distraction & Mob Body Location Left Shoulder Body Position Hooklying Reps/Duration 5 Comments Gentle long axis distraction for relaxation. Gentle mob into shoulder retraction. 2 Type AAROM Body Location Left Shoulder Body Position Hooklying Reps/Duration 10 Comments AAROM through available range in flexion, abduction, IR, ER 1 Type Manual Resistive Strengthening Body Location Left Shoulder Body Position Hooklying Reps/Duration 10 Comments MR shlder adduction, extension 0-60 degrees. MR shlder IR, IR 0-40 degrees. PT-OP-R Modalities Start: 06/16/19 13:49 Freq: Status: Active Protocol: Document 09/09/19 09:00 NFW (Rec: 09/09/19 14:30 NFW [id number]) Electric Stimulation Electric Stimulation Interferential Current (IFC) Body Location L shld Duration (Minutes) 10 Intensity 15 Target/Sweep Sweep Patient Position Hooklying Combined With Heat/Cold Cold Pack PT-OP-S Aquatic Treatment Start: 06/16/19 13:49 Freq: Status: Active Protocol: Document 07/27/19 12:30 SAK (Rec: 07/28/19 10:27 SAK [id number]) Aquatics Treatment Pool Entry/Exit Assistance Independent Water Walking Sideways Water Level Neck Level Level of Assistance Verbal Cues Comments with shoulder ab/ad baclward Water Level Neck Level Level of Assistance Verbal Cues Comments reverse breastroke UE's forward Water Level Neck Level Level of Assistance Verbal Cues Comments breastroke and alternating UE' s Upper Extremity Exercises shoulder isometrics all planes Body Position Standing Water Level Neck Level Reps/Duration 10x elbow flex/ext Body Position Standing Water Level Neck Level shoulder circles Body Position Standing Water Level Neck Level Reps/Duration 10x Comments arms in water shoulder IR/ER Body Position Standing Water Level Chest Level Reps/Duration 10x Comments arms in water shoulder flex/ext Reps/Duration 10x Comments arms remain in water hor ab/ad Body Position Standing Water Level Neck Level Reps/Duration 10x Comments arms remain in water [place] Activities [place] Activities Bicycle Comments with gentle breastroke UE's Manual Techniques Bad Ragaz for passive thoracic and shoulder ROM (yellow neck float, LE floats) Aquatic Massage left [place], scapular musculature, biceps, deltoid PT-OP-T Assessment and Plan Start: 06/16/19 13:49 Freq: Status: Active Protocol: Document 09/09/19 09:00 NFW (Rec: 09/09/19 14:30 NFW [id number]) Physical Therapy Assessment Assessment Summary Assessment Per new referral from surgeon started patient on gentle strengthening, first manually in low level ranged then progressing to active program with Tband. Stress to patient not to overdo. Requires posture cuing throughout tband exercises. Fatigued at end of treatment. Physical Therapy Plan Frequency and Duration Frequency of Treatment 2x/Week Duration of Treatment 12 wks Plan of Care Start Date 06/16/19 Plan of Care End Date 09/16/19
--- NOTE | 2019-09-09 14:38 | PT.OTN ---
Current Diagnoses Primary osteoarthritis, left shoulder (09/09/19) Pain in left shoulder (09/09/19) Impingement syndrome of left shoulder (09/09/19) Weakness (09/09/19) Encounter for other orthopedic aftercare (09/09/19) Physical Therapy Treatment Note PT-OP-A Visit Information Start: 06/16/19 13:49 Freq: Status: Active Protocol: Document 09/09/19 09:00 NFW (Rec: 09/09/19 14:30 NFW [id number]) Out-Patient Physical Therapy Visit Information Visit Information Visit Type Treatment Note Visit Note New referral from surgeon for ROM and to start gentle strengthening. 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 In surgery there was found to be significant tearing of the labrum with maority of the labrum being pulled off the glenoid and signs of a previous proximal biceps rupture. Patient reports she has been wearing the sling 24 hours a day at this time including to sleep as instructed. Doing some icing of left shoulder. is going to have back surgery and patient reports she needs to recover so she can help him with his recovery after surgery. Future Testing and Treatments Planned Patient returns to see Dr. Lyman 06/22/19 prior to next PT session Treatment Goals Patient/Caregiver Goals Regain full use of her left UE Prior Functional Status Baseline Function- ADL's Modified Independent Baseline Function- Mobility Modified Independent Baseline Function- Other painful with use of left LE Current Functional Impairments (Reported) Functional Limitations- ADL's unable to use left UE Personal Factors Other Personal Factors That May Effect Reports clumsy, not Therapy/Recovery able to help with PROM of her shoulder. PT-OP-C Subjective Start: 06/16/19 13:49 Freq: Status: Active Protocol: Document 09/09/19 09:00 NFW (Rec: 09/09/19 14:30 NFW [id number]) OP-PT Subjective Patient Comments Patient Comments Patient better today. Saw surgeon after fall, no reinjury to shoulder. PT-OP-H Neuro Start: 06/16/19 13:49 Freq: Status: Active Protocol: Document 06/16/19 15:03 SAK (Rec: 06/19/19 15:27 SAK [id number]) Sensation Evaluation Gross Sensation Gross Sensation WNL Comments Summary Comments denied N/T PT-OP-J Posture/Palpation/Skin Start: 06/16/19 13:49 Freq: Status: Active Protocol: Document 06/16/19 15:03 SAK (Rec: 06/19/19 15:27 SAK [id number]) Posture Evaluation Position Sitting Head/C-Spine Posture Forward Head Shoulder Posture (L) Rounded,(R) Rounded Scapula Posture (L) Protracted,(R) Protracted Palpation Assessment Location left [place] Palpation Findings Muscle Guarding Skin Assessment Incisional Assessment Incision Appearance/Comments covered with post-op dressing. No signs or symptoms of infection. PT-OP-K Range of Motion Start: 06/16/19 13:49 Freq: Status: Active Protocol: Document 09/02/19 10:50 SP (Rec: 09/02/19 12:37 SP [email or web address]) Shoulder Goniometric Range of Motion Shoulder Left Passive Testing Position Supine Flexion 130 Abduction 98 External Rotation at 0 degrees Abduction 49 Internal Rotation Behind Back (text) L1 PT-OP-M Strength Start: 06/16/19 13:49 Freq: Status: Active Protocol: Document 06/16/19 15:03 SAK (Rec: 06/19/19 15:27 SAK [id number]) Shoulder Strength Shoulder Manual Muscle Testing Left Reason Not Measured Orthopedic Precautions Right Reason Not Measured WFL PT-OP-Q Treatments Start: 06/16/19 13:49 Freq: Status: Active Protocol: Document 09/09/19 09:00 NFW (Rec: 09/09/19 14:30 NFW [id number]) Cardio Equipment Upper Body Ergometer (UBE) Duration (Minutes) 2 Other 1 min each direction, min resistance Therapeutic Exercises Supine Exercises 1 Supine Exercise Name Bench Press Side left Resistance 2 lb Reps/Minutes 10 Sidelying Exercises 1 Sidelying Exercise Name PRE - ER w/ 1# wt to neutral Side left Resistance 1# wt Reps/Minutes 10 Other Exercises 2 Other Exercise Name Shlder IR & ER Side left Resistance Level 1 Equipment Used Tband Reps/Minutes 10 reps each Comments Short arc 1 Other Exercise Name Shlder extension then add to side only Side left Resistance Level 1 Equipment Used Tband Reps/Minutes 10 reps each Comments Short range, band to side of thigh Manual Therapy Treatment Manual Techniques 3 Type Long [place] Distraction & Mob Body Location Left Shoulder Body Position Hooklying Reps/Duration 5 Comments Gentle long axis distraction for relaxation. Gentle mob into shoulder retraction. 2 Type AAROM Body Location Left Shoulder Body Position Hooklying Reps/Duration 10 Comments AAROM through available range in flexion, abduction, IR, ER 1 Type Manual Resistive Strengthening Body Location Left Shoulder Body Position Hooklying Reps/Duration 10 Comments MR shlder adduction, extension 0-60 degrees. MR shlder IR, IR 0-40 degrees. PT-OP-R Modalities Start: 06/16/19 13:49 Freq: Status: Active Protocol: Document 09/09/19 09:00 NFW (Rec: 09/09/19 14:30 NFW [id number]) Electric Stimulation Electric Stimulation Interferential Current (IFC) Body Location L shld Duration (Minutes) 10 Intensity 15 Target/Sweep Sweep Patient Position Hooklying Combined With Heat/Cold Cold Pack PT-OP-S Aquatic Treatment Start: 06/16/19 13:49 Freq: Status: Active Protocol: Document 07/27/19 12:30 SAK (Rec: 07/28/19 10:27 SAK [id number]) Aquatics Treatment Pool Entry/Exit Assistance Independent Water Walking Sideways Water Level Neck Level Level of Assistance Verbal Cues Comments with shoulder ab/ad baclward Water Level Neck Level Level of Assistance Verbal Cues Comments reverse breastroke UE's forward Water Level Neck Level Level of Assistance Verbal Cues Comments breastroke and alternating UE' s Upper Extremity Exercises shoulder isometrics all planes Body Position Standing Water Level Neck Level Reps/Duration 10x elbow flex/ext Body Position Standing Water Level Neck Level shoulder circles Body Position Standing Water Level Neck Level Reps/Duration 10x Comments arms in water shoulder IR/ER Body Position Standing Water Level Chest Level Reps/Duration 10x Comments arms in water shoulder flex/ext Reps/Duration 10x Comments arms remain in water hor ab/ad Body Position Standing Water Level Neck Level Reps/Duration 10x Comments arms remain in water [place] Activities [place] Activities Bicycle Comments with gentle breastroke UE's Manual Techniques Bad Ragaz for passive thoracic and shoulder ROM (yellow neck float, LE floats) Aquatic Massage left UT, scapular musculature, biceps, deltoid PT-OP-T Assessment and Plan Start: 06/16/19 13:49 Freq: Status: Active Protocol: Document 09/09/19 09:00 NFW (Rec: 09/09/19 14:30 NFW [id number]) Physical Therapy Assessment Assessment Summary Assessment Per new referral from surgeon started patient on gentle strengthening, first manually in low level ranged then progressing to active program with Tband. Stress to patient not to overdo. Requires posture cuing throughout tband exercises. Fatigued at end of treatment. Physical Therapy Plan Frequency and Duration Frequency of Treatment 2x/Week Duration of Treatment 12 wks Plan of Care Start Date 06/16/19 Plan of Care End Date 09/16/19
--- NOTE | 2019-09-16 11:20 | PT.OTN ---
Current Diagnoses Primary osteoarthritis, left shoulder (09/16/19) Pain in left shoulder (09/16/19) Impingement syndrome of left shoulder (09/16/19) Weakness (09/16/19) Encounter for other orthopedic aftercare (09/16/19) Physical Therapy Treatment Note PT-OP-A Visit Information Start: 06/16/19 13:49 Freq: Status: Active Protocol: Document 09/16/19 10:35 SP (Rec: 09/16/19 11:30 SP [email or web address]) Out-Patient Physical Therapy Visit Information Visit Information Visit Type Treatment Note Visit Start Time 10:35 Visit Stop Time 11:20 Total Visit Minutes 45 Visit Number 2 Number of MELT [employer]SE DRAG OPERATOR Visits 1 PT-OP-B Current Condition Start: 06/16/19 13:49 Freq: Status: Active Protocol: Document 06/16/19 15:03 SAK (Rec: 06/19/19 15:27 SAK [id number]) Current Condition History of Current Condition Onset Date 06/11/19 Current Complaints left shoulder pain and immobiity History of Current Condition Underwent left shoulder arthroscopic subacromial decompression with distal clavicle excision, arthroscopic extensive debridement, and partila rotator cuff repair. In surgery there was found to be significant tearing of the labrum with maority of the labrum being pulled off the glenoid and signs of a previous proximal biceps rupture. Patient reports she has been wearing the sling 24 hours a day at this time including to sleep as instructed. Doing some icing of left shoulder. is going to have back surgery and patient reports she needs to recover so she can help him with his recovery after surgery. Future Testing and Treatments Planned Patient returns to see Dr. Lyman 06/22/19 prior to next PT session Treatment Goals Patient/Caregiver Goals Regain full use of her left UE Prior Functional Status Baseline Function- ADL's Modified Independent Baseline Function- Mobility Modified Independent Baseline Function- Other painful with use of left LE Current Functional Impairments (Reported) Functional Limitations- ADL's unable to use left UE Personal Factors Other Personal Factors That May Effect Reports clumsy, not Therapy/Recovery able to help with PROM of her shoulder. PT-OP-C Subjective Start: 06/16/19 13:49 Freq: Status: Active Protocol: Document 09/16/19 10:35 SP (Rec: 09/16/19 11:30 SP [email or web address]) OP-PT Subjective Patient Comments Patient Comments Pt stated R lateral shld was sore after last tx but was good to start some strengthening, doing my instructed exercises. PT-OP-H Neuro Start: 06/16/19 13:49 Freq: Status: Active Protocol: Document 06/16/19 15:03 SAK (Rec: 06/19/19 15:27 SAK [id number]) Sensation Evaluation Gross Sensation Gross Sensation WNL Comments Summary Comments denied N/T PT-OP-J Posture/Palpation/Skin Start: 06/16/19 13:49 Freq: Status: Active Protocol: Document 06/16/19 15:03 SAK (Rec: 06/19/19 15:27 SAK [id number]) Posture Evaluation Position Sitting Head/C-Spine Posture Forward Head Shoulder Posture (L) Rounded,(R) Rounded Scapula Posture (L) Protracted,(R) Protracted Palpation Assessment Location left [place] Palpation Findings Muscle Guarding Skin Assessment Incisional Assessment Incision Appearance/Comments covered with post-op dressing. No signs or symptoms of infection. PT-OP-K Range of Motion Start: 06/16/19 13:49 Freq: Status: Active Protocol: Document 09/02/19 10:50 SP (Rec: 09/02/19 12:37 SP [email or web address]) Shoulder Goniometric Range of Motion Shoulder Left Passive Testing Position Supine Flexion 130 Abduction 98 External Rotation at 0 degrees Abduction 49 Internal Rotation Behind Back (text) L1 PT-OP-M Strength Start: 06/16/19 13:49 Freq: Status: Active Protocol: Document 06/16/19 15:03 SAK (Rec: 06/19/19 15:27 SAK [id number]) Shoulder Strength Shoulder Manual Muscle Testing Left Reason Not Measured Orthopedic Precautions Right Reason Not Measured WFL PT-OP-Q Treatments Start: 06/16/19 13:49 Freq: Status: Active Protocol: Document 09/16/19 10:35 SP (Rec: 09/16/19 11:30 SP [email or web address]) Therapeutic Exercises Supine Exercises Dowel AAROM Supine Exercise Name ER Side left Equipment Used dowel Reps/Minutes x10 shoulder flex Side bilateral Equipment Used dowel Reps/Minutes 2x10 Comments AAROM PROM all planes Supine Exercise Name AAROM left shoulder all planes of movement Side left Reps/Minutes 10 x ea Sidelying Exercises 1 Sidelying Exercise Name ER Side left Resistance AROM Reps/Minutes 3x10 Comments towel roll under arm Standing Exercises IR/ row Equipment Used level 1 band Reps/Minutes 2x10 each Comments cued and mirror used for feedback for scap stabilization scapular retraction Resistance AROM Reps/Minutes 5 sec hold x5 shoulder flex wall slide Standing Exercise Name FF and ABD Resistance AROM Reps/Minutes x5 each Comments occasional cue scap stabilization Manual Therapy Treatment Joint Mobilizations GH Jt Joint L shld Direction AP Grade II Body Position Supine Reps/Duration x5 Comments scapular plane posterior glide PT-OP-R Modalities Start: 06/16/19 13:49 Freq: Status: Active Protocol: Document 09/16/19 10:35 SP (Rec: 09/16/19 11:30 SP [email or web address]) Electric Stimulation Electric Stimulation Interferential Current (IFC) Body Location L shld Duration (Minutes) 10 Intensity 15 Target/Sweep Sweep Patient Position Hooklying Combined With Heat/Cold Cold Pack PT-OP-S Aquatic Treatment Start: 06/16/19 13:49 Freq: Status: Active Protocol: Document 07/27/19 12:30 SAK (Rec: 07/28/19 10:27 SAK [id number]) Aquatics Treatment Pool Entry/Exit Assistance Independent Water Walking Sideways Water Level Neck Level Level of Assistance Verbal Cues Comments with shoulder ab/ad [place] Water Level Neck Level Level of Assistance Verbal Cues Comments reverse breastroke UE's forward Water Level Neck Level Level of Assistance Verbal Cues Comments breastroke and alternating UE' s Upper Extremity Exercises shoulder isometrics all planes Body Position Standing Water Level Neck Level Reps/Duration 10x elbow flex/ext Body Position Standing Water Level Neck Level shoulder circles Body Position Standing Water Level Neck Level Reps/Duration 10x Comments arms in water shoulder IR/ER Body Position Standing Water Level Chest Level Reps/Duration 10x Comments arms in water shoulder flex/ext Reps/Duration 10x Comments arms remain in water hor ab/ad Body Position Standing Water Level Neck Level Reps/Duration 10x Comments arms remain in water [place] Activities [place] Activities Bicycle Comments with gentle breastroke UE's Manual Techniques Bad Ragaz for passive thoracic and shoulder ROM (yellow neck float, LE floats) Aquatic Massage left [place], scapular musculature, biceps, deltoid PT-OP-T Assessment and Plan Start: 06/16/19 13:49 Freq: Status: Active Protocol: Document 09/16/19 10:35 SP (Rec: 09/16/19 11:30 SP [email or web address]) Physical Therapy Assessment Assessment Summary Assessment Pt tolerated tx well, reported little snapping during FF ROM but tolerable and discomfort goes away when stops. Improving in AAROM and tolerating added light strengthening with no adverse affects. Cued for scapular stabillzation to decrease shld elevation and protraction recruitment, mirror helped for self awareness. Pt states her help give her cuing as well. Physical Therapy Plan Frequency and Duration Frequency of Treatment 2x/Week Duration of Treatment 12 wks Plan of Care Start Date 06/16/19 Plan of Care End Date 09/16/19 Therapeutic Interventions Therapeutic Interventions Aquatic Therapy,Home Exercise Program,Manual Therapy, Neuromuscular Re-education, Self-Care/Home Management,Soft Tissue Mobilization,Taping, Therapeutic Activities, Therapeutic Exercises Modalities Cold Pack/Ice Massage,Electric Stimulation,Hot Packs Next Visit Focus/Plan Next Note Type Treatment Note Next Visit Plan Continue work toward goals in ROM and strengthening LUE within tolerance.
--- NOTE | 2019-09-18 17:41 | PT.OTN ---
Current Diagnoses Primary osteoarthritis, left shoulder (09/18/19) Pain in left shoulder (09/18/19) Impingement syndrome of left shoulder (09/18/19) Weakness (09/18/19) Encounter for other orthopedic aftercare (09/18/19) Physical Therapy Treatment Note PT-OP-A Visit Information Start: 06/16/19 13:49 Freq: Status: Active Protocol: Document 09/18/19 13:31 LRN (Rec: 09/18/19 14:23 LRN [id number]) Out-Patient Physical Therapy Visit Information Visit Information Visit Type Progress Note Visit Start Time 13:32 Visit Stop Time 14:33 Total Visit Minutes 61 Visit Number 12 Number of HOPPER ATTENDANT Visits 0 Precautions Precautions Pt cleared of light duty restrictions on 09/04/19. Follow Protocol in chart. Also: IBS Fibromyalgia PT-OP-B Current Condition Start: 06/16/19 13:49 Freq: Status: Active Protocol: Document 06/16/19 15:03 SAK (Rec: 06/19/19 15:27 SAK [id number]) Current Condition History of Current Condition Onset Date 06/11/19 Current Complaints left shoulder pain and immobiity History of Current Condition Underwent left shoulder arthroscopic subacromial decompression with distal clavicle excision, arthroscopic extensive debridement, and partila rotator cuff repair. In surgery there was found to be significant tearing of the labrum with maority of the labrum being pulled off the glenoid and signs of a previous proximal biceps rupture. Patient reports she has been wearing the sling 24 hours a day at this time including to sleep as instructed. Doing some icing of left shoulder. is going to have back surgery and patient reports she needs to recover so she can help him with his recovery after surgery. Future Testing and Treatments Planned Patient returns to see Dr. Lyman 06/22/19 prior to next PT session Treatment Goals Patient/Caregiver Goals Regain full use of her left UE Prior Functional Status Baseline Function- ADL's Modified Independent Baseline Function- Mobility Modified Independent Baseline Function- Other painful with use of left LE Current Functional Impairments (Reported) Functional Limitations- ADL's unable to use left UE Personal Factors Other Personal Factors That May Effect Reports clumsy, not Therapy/Recovery able to help with PROM of her shoulder. PT-OP-C Subjective Start: 06/16/19 13:49 Freq: Status: Active Protocol: Document 09/18/19 13:31 LRN (Rec: 09/18/19 14:23 LRN [id number]) OP-PT Subjective Patient Comments Patient Comments Pt cleared of lifting restrictions on 09/04/19. Reports being really sore after last treatment. A little sore this morning. States initially the RC was repaired. PT-OP-H Neuro Start: 06/16/19 13:49 Freq: Status: Active Protocol: Document 06/16/19 15:03 SAK (Rec: 06/19/19 15:27 [facility] [id number]) Sensation Evaluation Gross Sensation Gross Sensation WNL Comments Summary Comments denied N/T PT-OP-J Posture/Palpation/Skin Start: 06/16/19 13:49 Freq: Status: Active Protocol: Document 06/16/19 15:03 [facility] (Rec: 06/19/19 15:27 [facility] [id number]) Posture Evaluation Position Sitting Head/C-Spine Posture Forward Head Shoulder Posture (L) Rounded,(R) Rounded Scapula Posture (L) Protracted,(R) Protracted Palpation Assessment Location left UT Palpation Findings Muscle Guarding Skin Assessment Incisional Assessment Incision Appearance/Comments covered with post-op dressing. No signs or symptoms of infection. PT-OP-K Range of Motion Start: 06/16/19 13:49 Freq: Status: Active Protocol: Document 09/18/19 13:31 LRN (Rec: 09/18/19 14:23 LRN [id number]) Shoulder Goniometric Range of Motion Shoulder Left Passive Testing Position Supine Flexion 155 Extension 53 Abduction 130 External Rotation at 90 degrees 50 Abduction Internal Rotation 52 PT-OP-M Strength Start: 06/16/19 13:49 Freq: Status: Active Protocol: Document 09/18/19 13:31 LRN (Rec: 09/18/19 14:23 LRN [id number]) Shoulder Strength Shoulder Manual Muscle Testing Left Flexion 3- Fair- Extension 5 Normal Abduction (C5) 4- Good- Adduction 3+ Fair+ External Rotation 2 Poor Internal Rotation 3+ Fair+ Horizontal Abduction 4 Good Horizontal Adduction 4- Good- Right Reason Not Measured WFL PT-OP-Q Treatments Start: 06/16/19 13:49 Freq: Status: Active Protocol: Document 09/18/19 13:31 LRN (Rec: 09/18/19 14:23 LRN [id number]) Therapeutic Exercises Supine Exercises Shoulder AB Supine Exercise Name Shoulder AB stretch Comments ROM taken with stretch shoulder IR/ER Supine Exercise Name Manual Stretch Side left Comments ROM taken with stretch shoulder flex Supine Exercise Name Manual stretch Comments ROM taken with stretch Sitting Exercises Shoulder ARROM Sitting Exercise Name ARROM Side bilateral Comments MMT pulleys shoulder flex Comments Shoulder flex is 155 deg's shoulder ER Sitting Exercise Name AAROM L shld ER with robert Side left PROM shld abd Sitting Exercise Name Robert Shoulder AB Reps/Minutes 10x w/long holds Standing Exercises dowel IR Standing Exercise Name IR stretch with belt Side left Self-Care/Home Management Treatment Education Other Education Educated and reviewed pt protocol: current condition and of future progression. Discussed goals of progression . Discussed precaution of lifting per protocol. Discussed results of recheck and goals. PT-OP-R Modalities Start: 06/16/19 13:49 Freq: Status: Active Protocol: Document 09/18/19 13:31 LRN (Rec: 09/18/19 14:23 LRN [id number]) Hot Pack/Cold Pack Treatment Cold Pack Location left shoulder Patient Position Hooklying Treatment Duration (minutes) 10 Patient Tolerance Good PT-OP-S Aquatic Treatment Start: 06/16/19 13:49 Freq: Status: Active Protocol: Document 07/27/19 12:30 SAK (Rec: 07/28/19 10:27 SAK [id number]) Aquatics Treatment Pool Entry/Exit Assistance Independent Water Walking Sideways Water Level Neck Level Level of Assistance Verbal Cues Comments with shoulder ab/ad baclward Water Level Neck Level Level of Assistance Verbal Cues Comments reverse breastroke UE's forward Water Level Neck Level Level of Assistance Verbal Cues Comments breastroke and alternating UE' s Upper Extremity Exercises shoulder isometrics all planes Body Position Standing Water Level Neck Level Reps/Duration 10x elbow flex/ext Body Position Standing Water Level Neck Level shoulder circles Body Position Standing Water Level Neck Level Reps/Duration 10x Comments arms in water shoulder IR/ER Body Position Standing Water Level Chest Level Reps/Duration 10x Comments arms in water shoulder flex/ext Reps/Duration 10x Comments arms remain in water hor ab/ad Body Position Standing Water Level Neck Level Reps/Duration 10x Comments arms remain in water [place] Activities [place] Activities Bicycle Comments with gentle breastroke UE's Manual Techniques Bad Ragaz for passive thoracic and shoulder ROM (yellow neck float, LE floats) Aquatic Massage left UT, scapular musculature, biceps, deltoid PT-OP-T Assessment and Plan Start: 06/16/19 13:49 Freq: Status: Active Protocol: Document 09/18/19 13:31 LRN (Rec: 09/18/19 14:23 LRN [id number]) Physical Therapy Assessment Rehab Potential Rehabilitation Potential Good Evaluation Complexity Number of Personal Factors/Comorbidities 3 or More Number of Body Systems Impaired 3 Clinical Presentation at Evaluation Evolving Impairments Impairments Functional Activities,Pain,ROM ,Strength Other Concerns Barriers to Rehabilitation Spouse tries to help with exercises but is clumsy. Planning a back surgery for spouse. Had fall onto L shoulder at home, resulting in delay of healing. IBS Fibromylagia Goals Five Impairment knowledge deficit Short Term Goal (STG) instruct in post-op protocol for left shoulder rehab, assure understanding of precautions. Will be independent and compliant with HEP, with assistance of STG Duration ongoing Penit[facility]iary Goal (LTG) Patient to be independent and compliant with HEP, possibly aquatic exercise program. LTG Duration 6 months (09/18/19: Ongoing) Four Impairment functional activities. Short Term Goal (STG) patient to wear sling except for during exercises, no active use per protocol STG Duration 6 wks (09/18/19: Goal met, sling no longer needed) Penitentiary Goal (LTG) Patient able to return to full functional use of left UE with minimal pain including reaching overhead and behind her back. LTG Duration 6 months (09/18/19: improving ) Three Impairment strength Lead Bi Developer Goal (LTG) Patient to demonstrate at least 4+/5 muscle strength throughout left shoulder LTG Duration 6 months (09/18/19: Progressing towards goal) Two Impairment ROM Short Term Goal (STG) Improve passive left shoulder forward flexion to at least 125 degrees, passive ER in scapular plane to at least 75 degrees, passive internal rotation in scapular plane to at least 75 degrees, and passive abduction to at least 90 degrees in the scapular plane. STG Duration 6 wks (09/18/19: ER/IR goals not met) Penitentiary Goal (LTG) Patient to return to full active motion left shoulder LTG Duration 6 months (09/18/19: Progressing towards goal) One Impairment pain Short Term Goal (STG) Decrease pain to no greater than 3/10 STG Duration 6 wks (09/18/19: Pain after PT is 3-4/10, sometimes catch pain) Penitentiary Goal (LTG) Decrease pain to no greater than 1/10 with functional use of left UE LTG Duration 6 months (09/18/19: Goal not met) Assessment Summary Assessment Pt presents with improved L shoulder ROM and strength. She has been cleared of lifting restrictions but protocol indicates restriction of no > 5# until 10/01/19 ( Phase 3). Phase 4 to begin . Pt has not yet achieve Phase 3 goal of full AROM and PROM. She is improving in strength but per phase 3 is to avoid UE bike or ergometer. Pt will benefit from continued physical therapy for progression through phase 4 of her rehabilitation program. Physical Therapy Plan Frequency and Duration Plan of Care Start Date 09/18/19 Plan of Care End Date 11/17/19 Therapeutic Interventions Therapeutic Interventions Aquatic Therapy,Home Exercise Program,Manual Therapy, Neuromuscular Re-education, Self-Care/Home Management,Soft Tissue Mobilization,Taping, Therapeutic Activities, Therapeutic Exercises Modalities Cold Pack/Ice Massage,Electric Stimulation,Hot Packs Next Visit Focus/Plan Next Note Type Treatment Note Next Visit Plan Continue work toward goal of full AROM/PROM and pain reduction, strengthening LUE within tolerance.
--- NOTE | 2019-09-25 14:34 | PT.OTN ---
Current Diagnoses Primary osteoarthritis, left shoulder (09/25/19) Pain in left shoulder (09/25/19) Impingement syndrome of left shoulder (09/25/19) Weakness (09/25/19) Encounter for other orthopedic aftercare (09/25/19) Physical Therapy Treatment Note PT-OP-A Visit Information Start: 06/16/19 13:49 Freq: Status: Active Protocol: Document 09/25/19 14:34 SP (Rec: 09/25/19 15:58 SP [id number]) Out-Patient Physical Therapy Visit Information Visit Information Visit Type Treatment Note Visit Start Time 13:45 Visit Stop Time 14:34 Total Visit Minutes 49 Visit Number 13 Number of WATER AEROBICS INSTRUCTOR Visits 1 PT-OP-B Current Condition Start: 06/16/19 13:49 Freq: Status: Active Protocol: Document 06/16/19 15:03 SAK (Rec: 06/19/19 15:27 SAK [id number]) Current Condition History of Current Condition Onset Date 06/11/19 Current Complaints left shoulder pain and immobiity History of Current Condition Underwent left shoulder arthroscopic subacromial decompression with distal clavicle excision, arthroscopic extensive debridement, and partila rotator cuff repair. In surgery there was found to be significant tearing of the labrum with maority of the labrum being pulled off the glenoid and signs of a previous proximal biceps rupture. Patient reports she has been wearing the sling 24 hours a day at this time including to sleep as instructed. Doing some icing of left shoulder. is going to have back surgery and patient reports she needs to recover so she can help him with his recovery after surgery. Future Testing and Treatments Planned Patient returns to see Dr. Lyman 06/22/19 prior to next PT session Treatment Goals Patient/Caregiver Goals Regain full use of her left UE Prior Functional Status Baseline Function- ADL's Modified Independent Baseline Function- Mobility Modified Independent Baseline Function- Other painful with use of left LE Current Functional Impairments (Reported) Functional Limitations- ADL's unable to use left UE Personal Factors Other Personal Factors That May Effect Reports clumsy, not Therapy/Recovery able to help with PROM of her shoulder. PT-OP-C Subjective Start: 06/16/19 13:49 Freq: Status: Active Protocol: Document 09/25/19 14:34 SP (Rec: 09/25/19 15:58 SP [id number]) OP-PT Subjective Patient Comments Patient Comments Pt stated lateral GH jt sore secondary to reaching to bed stand for phone and pulled some muscles recently. Pt stated felt pretty good after follow up appt with the PT, did some stretching and loosened up her shld. Patient Reported Progress Improving PT-OP-H Neuro Start: 06/16/19 13:49 Freq: Status: Active Protocol: Document 06/16/19 15:03 SAK (Rec: 06/19/19 15:27 SAK [id number]) Sensation Evaluation Gross Sensation Gross Sensation WNL Comments Summary Comments denied N/T PT-OP-J Posture/Palpation/Skin Start: 06/16/19 13:49 Freq: Status: Active Protocol: Document 06/16/19 15:03 SAK (Rec: 06/19/19 15:27 SAK [id number]) Posture Evaluation Position Sitting Head/C-Spine Posture Forward Head Shoulder Posture (L) Rounded,(R) Rounded Scapula Posture (L) Protracted,(R) Protracted Palpation Assessment Location left UT Palpation Findings Muscle Guarding Skin Assessment Incisional Assessment Incision Appearance/Comments covered with post-op dressing. No signs or symptoms of infection. PT-OP-K Range of Motion Start: 06/16/19 13:49 Freq: Status: Active Protocol: Document 09/18/19 13:31 LRN (Rec: 09/18/19 14:23 LRN [id number]) Shoulder Goniometric Range of Motion Shoulder Left Passive Testing Position Supine Flexion 155 Extension 53 Abduction 130 External Rotation at 90 degrees 50 Abduction Internal Rotation 52 PT-OP-M Strength Start: 06/16/19 13:49 Freq: Status: Active Protocol: Document 09/18/19 13:31 LRN (Rec: 09/18/19 14:23 LRN [id number]) Shoulder Strength Shoulder Manual Muscle Testing Left Flexion 3- Fair- Extension 5 Normal Abduction (C5) 4- Good- Adduction 3+ Fair+ External Rotation 2 Poor Internal Rotation 3+ Fair+ Horizontal Abduction 4 Good Horizontal Adduction 4- Good- Right Reason Not Measured WFL PT-OP-Q Treatments Start: 06/16/19 13:49 Freq: Status: Active Protocol: Document 09/25/19 14:34 SP (Rec: 09/25/19 15:58 SP [id number]) Therapeutic Exercises Supine Exercises ABC Supine Exercise Name serratus press 1 then ABC Side left Resistance AROM Reps/Minutes a-z with 1 rest break serratus punch Side left Reps/Minutes x8 PROM all planes Supine Exercise Name AAROM left shoulder all planes of movement Side left Reps/Minutes 10 x ea Sidelying Exercises HABD Sidelying Exercise Name with and without TS rotation Side left Resistance AROM Reps/Minutes x8 Comments slow control, CS with sternum 1 Sidelying Exercise Name ER Side left Resistance AROM x10, 1# 2x10 Comments towel roll under arm, cued wrist neutral Sitting Exercises pulleys shoulder flex Sitting Exercise Name FF, ER, ABD, IR Side left Resistance AAROM Reps/Minutes x10 each Standing Exercises shoulder extension Side left Resistance Level 1 band Reps/Minutes 2x10 Comments scap stabilization Manual Therapy Treatment Soft Tissue Mobilization 1 Body Location deltoid, infraspinatus, pec, upper trap Mobilization Type Rolling,Strumming,Sustained Pressure Intensity/Depth Moderate Body Position Supine Joint Mobilizations GH Jt Joint L shld Direction AP Grade II Body Position Supine Reps/Duration x5 Comments scapular plane posterior and inferior glide PT-OP-R Modalities Start: 06/16/19 13:49 Freq: Status: Active Protocol: Document 09/25/19 14:34 SP (Rec: 09/25/19 15:58 SP [id number]) Electric Stimulation Electric Stimulation Interferential Current (IFC) Body Location L shld Duration (Minutes) 10 Intensity 15 Frequency 15 Target/Sweep Sweep High/Low High Patient Position Hooklying Combined With Heat/Cold Cold Pack PT-OP-S Aquatic Treatment Start: 06/16/19 13:49 Freq: Status: Active Protocol: Document 07/27/19 12:30 SAK (Rec: 07/28/19 10:27 SAK [id number]) Aquatics Treatment Pool Entry/Exit Assistance Independent Water Walking Sideways Water Level Neck Level Level of Assistance Verbal Cues Comments with shoulder ab/ad baclward Water Level Neck Level Level of Assistance Verbal Cues Comments reverse breastroke UE's forward Water Level Neck Level Level of Assistance Verbal Cues Comments breastroke and alternating UE' s Upper Extremity Exercises shoulder isometrics all planes Body Position Standing Water Level Neck Level Reps/Duration 10x elbow flex/ext Body Position Standing Water Level Neck Level shoulder circles Body Position Standing Water Level Neck Level Reps/Duration 10x Comments arms in water shoulder IR/ER Body Position Standing Water Level Chest Level Reps/Duration 10x Comments arms in water shoulder flex/ext Reps/Duration 10x Comments arms remain in water hor ab/ad Body Position Standing Water Level Neck Level Reps/Duration 10x Comments arms remain in water [place] Activities [place] Activities Bicycle Comments with gentle breastroke UE's Manual Techniques Bad Ragaz for passive thoracic and shoulder ROM (yellow neck float, LE floats) Aquatic Massage left UT, scapular musculature, biceps, deltoid PT-OP-T Assessment and Plan Start: 06/16/19 13:49 Freq: Status: Active Protocol: Document 09/25/19 14:34 SP (Rec: 09/25/19 15:58 SP [id number]) Physical Therapy Assessment Goals Five Impairment knowledge deficit Short Term Goal (STG) instruct in post-op protocol for left shoulder rehab, assure understanding of precautions. Will be independent and compliant with HEP, with assistance of STG Duration ongoing Electronic Induction Hardener Goal (LTG) Patient to be independent and compliant with HEP, possibly aquatic exercise program. LTG Duration 6 months (09/18/19: Ongoing) Four Impairment functional activities. Short Term Goal (STG) patient to wear sling except for during exercises, no active use per protocol STG Duration 6 wks (09/18/19: Goal met, sling no longer needed) Electronic Induction Hardener Goal (LTG) Patient able to return to full functional use of left UE with minimal pain including reaching overhead and behind her back. LTG Duration 6 months (09/18/19: improving ) Three Impairment strength Electronic Induction Hardener Goal (LTG) Patient to demonstrate at least 4+/5 muscle strength throughout left shoulder LTG Duration 6 months (09/18/19: Progressing towards goal) Two Impairment ROM Short Term Goal (STG) Improve passive left shoulder forward flexion to at least 125 degrees, passive ER in scapular plane to at least 75 degrees, passive internal rotation in scapular plane to at least 75 degrees, and passive abduction to at least 90 degrees in the scapular plane. STG Duration 6 wks (09/18/19: ER/IR goals not met) Shelter Goal (LTG) Patient to return to full active motion left shoulder LTG Duration 6 months (09/18/19: Progressing towards goal) One Impairment pain Short Term Goal (STG) Decrease pain to no greater than 3/10 STG Duration 6 wks (09/18/19: Pain after PT is 3-4/10, sometimes catch pain) Shelter Goal (LTG) Decrease pain to no greater than 1/10 with functional use of left UE LTG Duration 6 months (09/18/19: Goal not met) Assessment Summary Assessment Pt tolerated ther ex, cued for scapular stabilization: retraction/depression during pulleys with improvement in ABD and FF of decreased shld elevation. Cued for slow control. Pt very tight pec, improved post manual STM and PROM to tolerant range. Suggested getting robert for home with thumb facing back and relaxed shld with positive results. Pt reported no pain or adverse reaction to ther ex today. 0 /10 end of tx. Physical Therapy Plan Frequency and Duration Frequency of Treatment 2x/Week Plan of Care Start Date 09/18/19 Plan of Care End Date 11/17/19 Therapeutic Interventions Therapeutic Interventions Aquatic Therapy,Home Exercise Program,Manual Therapy, Neuromuscular Re-education, Self-Care/Home Management,Soft Tissue Mobilization,Taping, Therapeutic Activities, Therapeutic Exercises Modalities Cold Pack/Ice Massage,Electric Stimulation,Hot Packs Next Visit Focus/Plan Next Note Type Treatment Note Next Visit Plan Continue work toward goal of full AROM/PROM and pain reduction, strengthening LUE within tolerance, follow protocol 10/01/19 phase 3 if met phase 2 activities.
--- NOTE | 2019-09-29 17:17 | PT.OTN ---
Current Diagnoses Primary osteoarthritis, left shoulder (09/29/19) Pain in left shoulder (09/29/19) Impingement syndrome of left shoulder (09/29/19) Weakness (09/29/19) Encounter for other orthopedic aftercare (09/29/19) Physical Therapy Treatment Note PT-OP-A Visit Information Start: 06/16/19 13:49 Freq: Status: Active Protocol: Document 09/29/19 13:00 NFW (Rec: 09/29/19 17:17 NFW [id number]) Out-Patient Physical Therapy Visit Information Visit Information Visit Type Treatment Note Visit Start Time 13:00 Visit Stop Time 13:45 Total Visit Minutes 45 Visit Number 14 Number of NEUROSURGICAL PHYSICIAN ASSISTANT Visits 0 PT-OP-B Current Condition Start: 06/16/19 13:49 Freq: Status: Active Protocol: Document 06/16/19 15:03 SAK (Rec: 06/19/19 15:27 SAK [id number]) Current Condition History of Current Condition Onset Date 06/11/19 Current Complaints left shoulder pain and immobiity History of Current Condition Underwent left shoulder arthroscopic subacromial decompression with distal clavicle excision, arthroscopic extensive debridement, and partila rotator cuff repair. In surgery there was found to be significant tearing of the labrum with maority of the labrum being pulled off the glenoid and signs of a previous proximal biceps rupture. Patient reports she has been wearing the sling 24 hours a day at this time including to sleep as instructed. Doing some icing of left shoulder. is going to have back surgery and patient reports she needs to recover so she can help him with his recovery after surgery. Future Testing and Treatments Planned Patient returns to see Dr. Lyman 06/22/19 prior to next PT session Treatment Goals Patient/Caregiver Goals Regain full use of her left UE Prior Functional Status Baseline Function- ADL's Modified Independent Baseline Function- Mobility Modified Independent Baseline Function- Other painful with use of left LE Current Functional Impairments (Reported) Functional Limitations- ADL's unable to use left UE Personal Factors Other Personal Factors That May Effect Reports clumsy, not Therapy/Recovery able to help with PROM of her shoulder. PT-OP-C Subjective Start: 06/16/19 13:49 Freq: Status: Active Protocol: Document 09/29/19 13:00 NFW (Rec: 09/29/19 17:17 NFW [id number]) OP-PT Subjective Patient Comments Patient Comments Residual soreness GH jt from reaching to bed stand for phone. Feels she is making good progress with treatments. Patient Reported Progress Improving PT-OP-H Neuro Start: 06/16/19 13:49 Freq: Status: Active Protocol: Document 06/16/19 15:03 SAK (Rec: 06/19/19 15:27 SAK [id number]) Sensation Evaluation Gross Sensation Gross Sensation WNL Comments Summary Comments denied N/T PT-OP-J Posture/Palpation/Skin Start: 06/16/19 13:49 Freq: Status: Active Protocol: Document 06/16/19 15:03 SAK (Rec: 06/19/19 15:27 SAK [id number]) Posture Evaluation Position Sitting Head/C-Spine Posture Forward Head Shoulder Posture (L) Rounded,(R) Rounded Scapula Posture (L) Protracted,(R) Protracted Palpation Assessment Location left [place] Palpation Findings Muscle Guarding Skin Assessment Incisional Assessment Incision Appearance/Comments covered with post-op dressing. No signs or symptoms of infection. PT-OP-K Range of Motion Start: 06/16/19 13:49 Freq: Status: Active Protocol: Document 09/18/19 13:31 LRN (Rec: 09/18/19 14:23 LRN [id number]) Shoulder Goniometric Range of Motion Shoulder Left Passive Testing Position Supine Flexion 155 Extension 53 Abduction 130 External Rotation at 90 degrees 50 Abduction Internal Rotation 52 PT-OP-M Strength Start: 06/16/19 13:49 Freq: Status: Active Protocol: Document 09/18/19 13:31 LRN (Rec: 09/18/19 14:23 LRN [id number]) Shoulder Strength Shoulder Manual Muscle Testing Left Flexion 3- Fair- Extension 5 Normal Abduction (C5) 4- Good- Adduction 3+ Fair+ External Rotation 2 Poor Internal Rotation 3+ Fair+ Horizontal Abduction 4 Good Horizontal Adduction 4- Good- Right Reason Not Measured WFL PT-OP-Q Treatments Start: 06/16/19 13:49 Freq: Status: Active Protocol: Document 09/29/19 13:00 NFW (Rec: 09/29/19 17:17 NFW [id number]) Therapeutic Exercises Sitting Exercises pulleys shoulder flex Sitting Exercise Name FF Side left Resistance AAROM Reps/Minutes x10 each Manual Therapy Treatment Soft Tissue Mobilization 1 Body Location deltoid, infraspinatus, pec, upper trap Mobilization Type Rolling,Strumming,Sustained Pressure Intensity/Depth Moderate Body Position Supine Manual Techniques 3 Type Long [place] Distraction & Mob Body Location Left Shoulder Body Position Hooklying Reps/Duration 5 Comments Gentle long axis distraction for relaxation. Gentle mob into shoulder retraction. 2 Type AAROM Body Location Left Shoulder Body Position Hooklying Reps/Duration 10 Comments AAROM through available range in flexion, abduction, IR, ER with assisted scapular stabilization. 1 Type Manual Resistive Strengthening Body Location Left Shoulder Body Position Hooklying Reps/Duration 10 Comments MR shlder adduction, extension 0-60 degrees. MR shlder IR, IR 0-40 degrees. PT-OP-R Modalities Start: 06/16/19 13:49 Freq: Status: Active Protocol: Document 09/25/19 14:34 SP (Rec: 09/25/19 15:58 SP [id number]) Electric Stimulation Electric Stimulation Interferential Current (IFC) Body Location L shld Duration (Minutes) 10 Intensity 15 Frequency 15 Target/Sweep Sweep High/Low High Patient Position Hooklying Combined With Heat/Cold Cold Pack PT-OP-S Aquatic Treatment Start: 06/16/19 13:49 Freq: Status: Active Protocol: Document 07/27/19 12:30 SAK (Rec: 07/28/19 10:27 SAK [id number]) Aquatics Treatment Pool Entry/Exit Assistance Independent Water Walking Sideways Water Level Neck Level Level of Assistance Verbal Cues Comments with shoulder ab/ad baclward Water Level Neck Level Level of Assistance Verbal Cues Comments reverse breastroke UE's forward Water Level Neck Level Level of Assistance Verbal Cues Comments breastroke and alternating UE' s Upper Extremity Exercises shoulder isometrics all planes Body Position Standing Water Level Neck Level Reps/Duration 10x elbow flex/ext Body Position Standing Water Level Neck Level shoulder circles Body Position Standing Water Level Neck Level Reps/Duration 10x Comments arms in water shoulder IR/ER Body Position Standing Water Level Chest Level Reps/Duration 10x Comments arms in water shoulder flex/ext Reps/Duration 10x Comments arms remain in water hor ab/ad Body Position Standing Water Level Neck Level Reps/Duration 10x Comments arms remain in water [place] Activities [place] Activities Bicycle Comments with gentle breastroke UE's Manual Techniques Bad Ragaz for passive thoracic and shoulder ROM (yellow neck float, LE floats) Aquatic Massage left UT, scapular musculature, biceps, deltoid PT-OP-T Assessment and Plan Start: 06/16/19 13:49 Freq: Status: Active Protocol: Document 09/29/19 13:00 NFW (Rec: 09/29/19 17:17 NFW [id number]) Physical Therapy Assessment Goals Five Impairment knowledge deficit Short Term Goal (STG) instruct in post-op protocol for left shoulder rehab, assure understanding of precautions. Will be independent and compliant with HEP, with assistance of STG Duration ongoing Studio Technician Video Operator Goal (LTG) Patient to be independent and compliant with HEP, possibly aquatic exercise program. LTG Duration 6 months (09/18/19: Ongoing) Four Impairment functional activities. Short Term Goal (STG) patient to wear sling except for during exercises, no active use per protocol STG Duration 6 wks (09/18/19: Goal met, sling no longer needed) Nursing Home Goal (LTG) Patient able to return to full functional use of left UE with minimal pain including reaching overhead and behind her back. LTG Duration 6 months (09/18/19: improving ) Three Impairment strength Nursing Home Goal (LTG) Patient to demonstrate at least 4+/5 muscle strength throughout left shoulder LTG Duration 6 months (09/18/19: Progressing towards goal) Two Impairment ROM Short Term Goal (STG) Improve passive left shoulder forward flexion to at least 125 degrees, passive ER in scapular plane to at least 75 degrees, passive internal rotation in scapular plane to at least 75 degrees, and passive abduction to at least 90 degrees in the scapular plane. STG Duration 6 wks (09/18/19: ER/IR goals not met) Nursing Home Goal (LTG) Patient to return to full active motion left shoulder LTG Duration 6 months (09/18/19: Progressing towards goal) One Impairment pain Short Term Goal (STG) Decrease pain to no greater than 3/10 STG Duration 6 wks (09/18/19: Pain after PT is 3-4/10, sometimes catch pain) Studio Technician Video Operator Goal (LTG) Decrease pain to no greater than 1/10 with functional use of left UE LTG Duration 6 months (09/18/19: Goal not met) Assessment Summary Assessment Attaining ~140 degrees flexion and 55 degrees ER in supine. Reaching left hand behind back ~T8. Regaining in ROM and strength. Physical Therapy Plan Next Visit Focus/Plan Next Note Type Treatment Note Next Visit Plan Continue to work toward goal of full AROM/PROM.
--- NOTE | 2019-10-05 10:30 | PT.OTN ---
Current Diagnoses Primary osteoarthritis, left shoulder (10/05/19) Pain in left shoulder (10/05/19) Impingement syndrome of left shoulder (10/05/19) Weakness (10/05/19) Encounter for other orthopedic aftercare (10/05/19) Physical Therapy Treatment Note PT-OP-A Visit Information Start: 06/16/19 13:49 Freq: Status: Active Protocol: Document 10/05/19 09:45 SP (Rec: 10/05/19 10:32 SP [id number]) Out-Patient Physical Therapy Visit Information Visit Information Visit Type Treatment Note Visit Start Time 09:45 Visit Stop Time 10:30 Total Visit Minutes 45 Visit Number 15 Number of LAST SORTER Visits 1 PT-OP-B Current Condition Start: 06/16/19 13:49 Freq: Status: Active Protocol: Document 06/16/19 15:03 SAK (Rec: 06/19/19 15:27 SAK [id number]) Current Condition History of Current Condition Onset Date 06/11/19 Current Complaints left shoulder pain and immobiity History of Current Condition Underwent left shoulder arthroscopic subacromial decompression with distal clavicle excision, arthroscopic extensive debridement, and partila rotator cuff repair. In surgery there was found to be significant tearing of the labrum with maority of the labrum being pulled off the glenoid and signs of a previous proximal biceps rupture. Patient reports she has been wearing the sling 24 hours a day at this time including to sleep as instructed. Doing some icing of left shoulder. is going to have back surgery and patient reports she needs to recover so she can help him with his recovery after surgery. Future Testing and Treatments Planned Patient returns to see Dr. Lyman 06/22/19 prior to next PT session Treatment Goals Patient/Caregiver Goals Regain full use of her left UE Prior Functional Status Baseline Function- ADL's Modified Independent Baseline Function- Mobility Modified Independent Baseline Function- Other painful with use of left LE Current Functional Impairments (Reported) Functional Limitations- ADL's unable to use left UE Personal Factors Other Personal Factors That May Effect Reports clumsy, not Therapy/Recovery able to help with PROM of her shoulder. PT-OP-C Subjective Start: 06/16/19 13:49 Freq: Status: Active Protocol: Document 10/05/19 09:45 SP (Rec: 10/05/19 10:32 SP [id number]) OP-PT Subjective Patient Comments Patient Comments Pt reported just little tired and soreness over top of shld/ AC jt maybe due to sleeping on it. Pt stated saw physician and told him about lateral humerus discomfort and was told it's not the anchors but probably more muscular pull. PT-OP-H Neuro Start: 06/16/19 13:49 Freq: Status: Active Protocol: Document 06/16/19 15:03 SAK (Rec: 06/19/19 15:27 SAK [id number]) Sensation Evaluation Gross Sensation Gross Sensation WNL Comments Summary Comments denied N/T PT-OP-J Posture/Palpation/Skin Start: 06/16/19 13:49 Freq: Status: Active Protocol: Document 06/16/19 15:03 SAK (Rec: 06/19/19 15:27 SAK [id number]) Posture Evaluation Position Sitting Head/C-Spine Posture Forward Head Shoulder Posture (L) Rounded,(R) Rounded Scapula Posture (L) Protracted,(R) Protracted Palpation Assessment Location left [place] Palpation Findings Muscle Guarding Skin Assessment Incisional Assessment Incision Appearance/Comments covered with post-op dressing. No signs or symptoms of infection. PT-OP-K Range of Motion Start: 06/16/19 13:49 Freq: Status: Active Protocol: Document 09/18/19 13:31 LRN (Rec: 09/18/19 14:23 LRN [id number]) Shoulder Goniometric Range of Motion Shoulder Left Passive Testing Position Supine Flexion 155 Extension 53 Abduction 130 External Rotation at 90 degrees 50 Abduction Internal Rotation 52 PT-OP-M Strength Start: 06/16/19 13:49 Freq: Status: Active Protocol: Document 09/18/19 13:31 LRN (Rec: 09/18/19 14:23 LRN [id number]) Shoulder Strength Shoulder Manual Muscle Testing Left Flexion 3- Fair- Extension 5 Normal Abduction (C5) 4- Good- Adduction 3+ Fair+ External Rotation 2 Poor Internal Rotation 3+ Fair+ Horizontal Abduction 4 Good Horizontal Adduction 4- Good- Right Reason Not Measured WFL PT-OP-Q Treatments Start: 06/16/19 13:49 Freq: Status: Active Protocol: Document 10/05/19 09:45 SP (Rec: 10/05/19 10:32 SP [id number]) Therapeutic Exercises Supine Exercises ABC Supine Exercise Name serratus press 1 then ABC Side left Resistance 1# DB Reps/Minutes a-z with 1 rest break PROM all planes Supine Exercise Name AAROM left shoulder all planes of movement Side left Reps/Minutes 10 x ea Sitting Exercises pulleys shoulder flex Sitting Exercise Name FF, ABD Side left Resistance AAROM Reps/Minutes x10 each Standing Exercises Wall slides/walk Standing Exercise Name FF, ABD Side left Resistance AAROM Reps/Minutes 2x5 D1 ext Side left Resistance Tb Lv 1 Reps/Minutes 3x10 Shld ER Side left Resistance TB Lv 1 Reps/Minutes 3x10 IR/ row Side left Equipment Used TB 1 Reps/Minutes 3x10 Manual Therapy Treatment Soft Tissue Mobilization 1 Body Location deltoid, pec Mobilization Type Rolling,Strumming,Sustained Pressure Intensity/Depth Moderate Body Position Supine Joint Mobilizations GH Jt Joint L shld Direction AP Grade II Body Position Supine Reps/Duration x5 Comments scapular plane posterior and inferior glide PT-OP-R Modalities Start: 06/16/19 13:49 Freq: Status: Active Protocol: Document 10/05/19 09:45 SP (Rec: 10/05/19 10:32 SP [id number]) Electric Stimulation Electric Stimulation Interferential Current (IFC) Body Location L shld Duration (Minutes) 10 Intensity 18 Frequency 15 Target/Sweep Target High/Low High Patient Position Hooklying Combined With Heat/Cold Cold Pack PT-OP-S Aquatic Treatment Start: 06/16/19 13:49 Freq: Status: Active Protocol: Document 07/27/19 12:30 SAK (Rec: 07/28/19 10:27 SAK [id number]) Aquatics Treatment Pool Entry/Exit Assistance Independent Water Walking Sideways Water Level Neck Level Level of Assistance Verbal Cues Comments with shoulder ab/ad [place] Water Level Neck Level Level of Assistance Verbal Cues Comments reverse breastroke UE's forward Water Level Neck Level Level of Assistance Verbal Cues Comments breastroke and alternating UE' s Upper Extremity Exercises shoulder isometrics all planes Body Position Standing Water Level Neck Level Reps/Duration 10x elbow flex/ext Body Position Standing Water Level Neck Level shoulder circles Body Position Standing Water Level Neck Level Reps/Duration 10x Comments arms in water shoulder IR/ER Body Position Standing Water Level Chest Level Reps/Duration 10x Comments arms in water shoulder flex/ext Reps/Duration 10x Comments arms remain in water hor ab/ad Body Position Standing Water Level Neck Level Reps/Duration 10x Comments arms remain in water [place] Activities [place] Activities Bicycle Comments with gentle breastroke UE's Manual Techniques Mitchel Ragaz for passive thoracic and shoulder ROM (yellow neck float, LE floats) Aquatic Massage left [place], scapular musculature, biceps, deltoid PT-OP-T Assessment and Plan Start: 06/16/19 13:49 Freq: Status: Active Protocol: Document 10/05/19 09:45 SP (Rec: 10/05/19 10:32 SP [id number]) Physical Therapy Assessment Goals Five Impairment knowledge deficit Short Term Goal (STG) instruct in post-op protocol for left shoulder rehab, assure understanding of precautions. Will be independent and compliant with HEP, with assistance of STG Duration ongoing Solution Sales Senior Executive Goal (LTG) Patient to be independent and compliant with HEP, possibly aquatic exercise program. LTG Duration 6 months (09/18/19: Ongoing) Four Impairment functional activities. Short Term Goal (STG) patient to wear sling except for during exercises, no active use per protocol STG Duration 6 wks (09/18/19: Goal met, sling no longer needed) Intermediate Goal (LTG) Patient able to return to full functional use of left UE with minimal pain including reaching overhead and behind her back. LTG Duration 6 months (09/18/19: improving ) Three Impairment strength Solution Sales Senior Executive Goal (LTG) Patient to demonstrate at least 4+/5 muscle strength throughout left shoulder LTG Duration 6 months (09/18/19: Progressing towards goal) Two Impairment ROM Short Term Goal (STG) Improve passive left shoulder forward flexion to at least 125 degrees, passive ER in scapular plane to at least 75 degrees, passive internal rotation in scapular plane to at least 75 degrees, and passive abduction to at least 90 degrees in the scapular plane. STG Duration 6 wks (09/18/19: ER/IR goals not met) Solution Sales Senior Executive Goal (LTG) Patient to return to full active motion left shoulder LTG Duration 6 months (09/18/19: Progressing towards goal) One Impairment pain Short Term Goal (STG) Decrease pain to no greater than 3/10 STG Duration 6 wks (09/18/19: Pain after PT is 3-4/10, sometimes catch pain) Solution Sales Senior Executive Goal (LTG) Decrease pain to no greater than 1/10 with functional use of left UE LTG Duration 6 months (09/18/19: Goal not met) Assessment Summary Assessment Pt tolerated Tb shld IR/ER/row /D1 ext with report a good work out, feel like muscles working. Pt states compliant with pulleys and TB exercises at home. Cued for scap stabilization during ER. Pt improving in ROM will assess range next tx. Pt reported just soreness with ex no pain. Pt requested cold pack and IFC for comfort end of tx with positive results cold, numb feels good. Physical Therapy Plan Therapeutic Interventions Therapeutic Interventions Aquatic Therapy,Home Exercise Program,Manual Therapy, Neuromuscular Re-education, Self-Care/Home Management,Soft Tissue Mobilization,Taping, Therapeutic Activities, Therapeutic Exercises Modalities Cold Pack/Ice Massage,Electric Stimulation,Hot Packs Next Visit Focus/Plan Next Note Type Treatment Note Next Visit Plan Review HEP: L shld Tb an AAROM HEP Add: IR AAROM and tricep/ bicep TB. Received new script with aggressive ROM for stiffness 2x/wk x6 weeks. PT POC: Continue work toward goal of full AROM/PROM and pain reduction, strengthening LUE within tolerance, follow protocol 10/01/19 phase 3 if met phase 2 activities.
--- NOTE | 2019-10-07 13:00 | PT.OTN ---
Current Diagnoses Primary osteoarthritis, left shoulder (10/07/19) Pain in left shoulder (10/07/19) Impingement syndrome of left shoulder (10/07/19) Weakness (10/07/19) Encounter for other orthopedic aftercare (10/07/19) Physical Therapy Treatment Note PT-OP-A Visit Information Start: 06/16/19 13:49 Freq: Status: Active Protocol: Document 10/07/19 12:18 SP (Rec: 10/07/19 13:07 SP [id number]) Out-Patient Physical Therapy Visit Information Visit Information Visit Type Treatment Note Visit Start Time 12:18 Visit Stop Time 13:00 Total Visit Minutes 42 Visit Number 16 Number of RECONCILER Visits 2 PT-OP-B Current Condition Start: 06/16/19 13:49 Freq: Status: Active Protocol: Document 06/16/19 15:03 SAK (Rec: 06/19/19 15:27 SAK [id number]) Current Condition History of Current Condition Onset Date 06/11/19 Current Complaints left shoulder pain and immobiity History of Current Condition Underwent left shoulder arthroscopic subacromial decompression with distal clavicle excision, arthroscopic extensive debridement, and partila rotator cuff repair. In surgery there was found to be significant tearing of the labrum with maority of the labrum being pulled off the glenoid and signs of a previous proximal biceps rupture. Patient reports she has been wearing the sling 24 hours a day at this time including to sleep as instructed. Doing some icing of left shoulder. is going to have back surgery and patient reports she needs to recover so she can help him with his recovery after surgery. Future Testing and Treatments Planned Patient returns to see Dr. Lyman 06/22/19 prior to next PT session Treatment Goals Patient/Caregiver Goals Regain full use of her left UE Prior Functional Status Baseline Function- ADL's Modified Independent Baseline Function- Mobility Modified Independent Baseline Function- Other painful with use of left LE Current Functional Impairments (Reported) Functional Limitations- ADL's unable to use left UE Personal Factors Other Personal Factors That May Effect Reports clumsy, not Therapy/Recovery able to help with PROM of her shoulder. PT-OP-C Subjective Start: 06/16/19 13:49 Freq: Status: Active Protocol: Document 10/07/19 12:18 SP (Rec: 10/07/19 13:07 SP [id number]) OP-PT Subjective Patient Comments Patient Comments Pt stated feeling little nauseous today, trying to balance ex, eating well, setting up 's surgery plans lately. L shld soreness . PT-OP-H Neuro Start: 06/16/19 13:49 Freq: Status: Active Protocol: Document 06/16/19 15:03 SAK (Rec: 06/19/19 15:27 SAK [id number]) Sensation Evaluation Gross Sensation Gross Sensation WNL Comments Summary Comments denied N/T PT-OP-J Posture/Palpation/Skin Start: 06/16/19 13:49 Freq: Status: Active Protocol: Document 06/16/19 15:03 SAK (Rec: 06/19/19 15:27 SAK [id number]) Posture Evaluation Position Sitting Head/C-Spine Posture Forward Head Shoulder Posture (L) Rounded,(R) Rounded Scapula Posture (L) Protracted,(R) Protracted Palpation Assessment Location left UT Palpation Findings Muscle Guarding Skin Assessment Incisional Assessment Incision Appearance/Comments covered with post-op dressing. No signs or symptoms of infection. PT-OP-K Range of Motion Start: 06/16/19 13:49 Freq: Status: Active Protocol: Document 09/18/19 13:31 LRN (Rec: 09/18/19 14:23 LRN [id number]) Shoulder Goniometric Range of Motion Shoulder Left Passive Testing Position Supine Flexion 155 Extension 53 Abduction 130 External Rotation at 90 degrees 50 Abduction Internal Rotation 52 PT-OP-M Strength Start: 06/16/19 13:49 Freq: Status: Active Protocol: Document 09/18/19 13:31 LRN (Rec: 09/18/19 14:23 LRN [id number]) Shoulder Strength Shoulder Manual Muscle Testing Left Flexion 3- Fair- Extension 5 Normal Abduction (C5) 4- Good- Adduction 3+ Fair+ External Rotation 2 Poor Internal Rotation 3+ Fair+ Horizontal Abduction 4 Good Horizontal Adduction 4- Good- Right Reason Not Measured WFL PT-OP-Q Treatments Start: 06/16/19 13:49 Freq: Status: Active Protocol: Document 10/07/19 12:18 SP (Rec: 10/07/19 13:07 SP [id number]) Cardio Equipment Upper Body Ergometer (UBE) Duration (Minutes) 6 RPM 50 Seat Position 18 Height 2 Other 3 f/b Therapeutic Exercises Supine Exercises shoulder flex Side left Resistance #1 DB x10, TB #1 Equipment Used 1/2 foam roller Reps/Minutes x10 each resistance Comments alternate BUE, cued awareness of lower ribcage toward roller PROM all planes Supine Exercise Name AAROM left shoulder all planes of movement Side left Reps/Minutes 10 x ea Comments CGT with slow pacing with awarenss of tolerant range feedback safe Sitting Exercises pulleys shoulder flex Sitting Exercise Name FF, ABD Side left Resistance AAROM Reps/Minutes x10 each Standing Exercises sleeper stretch Standing Exercise Name at wall 70 * ABD Equipment Used AROM Shld ER Side bilateral Resistance 1 TB 3x10 Reps/Minutes 2x10 dowel IR Side left Equipment Used clasping hands Reps/Minutes 5 sec hold x5 shoulder flex wall slide Standing Exercise Name FF Resistance #1 TB Reps/Minutes x10 Comments occasional cue scap stabilization Manual Therapy Treatment Joint Mobilizations GH Jt Joint L shld Direction AP Grade II Body Position Supine Reps/Duration x5 Comments scapular plane posterior and inferior glide CGT with PT-OP-R Modalities Start: 06/16/19 13:49 Freq: Status: Active Protocol: Document 10/05/19 09:45 SP (Rec: 10/05/19 10:32 SP [id number]) Electric Stimulation Electric Stimulation Interferential Current (IFC) Body Location L shld Duration (Minutes) 10 Intensity 18 Frequency 15 Target/Sweep Target High/Low High Patient Position Hooklying Combined With Heat/Cold Cold Pack PT-OP-S Aquatic Treatment Start: 06/16/19 13:49 Freq: Status: Active Protocol: Document 07/27/19 12:30 SAK (Rec: 07/28/19 10:27 SAK [id number]) Aquatics Treatment Pool Entry/Exit Assistance Independent Water Walking Sideways Water Level Neck Level Level of Assistance Verbal Cues Comments with shoulder ab/ad baclward Water Level Neck Level Level of Assistance Verbal Cues Comments reverse breastroke UE's forward Water Level Neck Level Level of Assistance Verbal Cues Comments breastroke and alternating UE' s Upper Extremity Exercises shoulder isometrics all planes Body Position Standing Water Level Neck Level Reps/Duration 10x elbow flex/ext Body Position Standing Water Level Neck Level shoulder circles Body Position Standing Water Level Neck Level Reps/Duration 10x Comments arms in water shoulder IR/ER Body Position Standing Water Level Chest Level Reps/Duration 10x Comments arms in water shoulder flex/ext Reps/Duration 10x Comments arms remain in water hor ab/ad Body Position Standing Water Level Neck Level Reps/Duration 10x Comments arms remain in water [place] Activities [place] Activities Bicycle Comments with gentle breastroke UE's Manual Techniques [place] for passive thoracic and shoulder ROM (yellow neck float, LE floats) Aquatic Massage left UT, scapular musculature, biceps, deltoid PT-OP-T Assessment and Plan Start: 06/16/19 13:49 Freq: Status: Active Protocol: Document 10/07/19 12:18 SP (Rec: 10/07/19 13:07 SP [id number]) Physical Therapy Assessment Goals Five Impairment knowledge deficit Short Term Goal (STG) instruct in post-op protocol for left shoulder rehab, assure understanding of precautions. Will be independent and compliant with HEP, with assistance of STG Duration ongoing Sales Research Analyst Goal (LTG) Patient to be independent and compliant with HEP, possibly aquatic exercise program. LTG Duration 6 months (09/18/19: Ongoing) Four Impairment functional activities. Short Term Goal (STG) patient to wear sling except for during exercises, no active use per protocol STG Duration 6 wks (09/18/19: Goal met, sling no longer needed) Group Home Goal (LTG) Patient able to return to full functional use of left UE with minimal pain including reaching overhead and behind her back. LTG Duration 6 months (09/18/19: improving ) Three Impairment strength Sales Research Analyst Goal (LTG) Patient to demonstrate at least 4+/5 muscle strength throughout left shoulder LTG Duration 6 months (09/18/19: Progressing towards goal) Two Impairment ROM Short Term Goal (STG) Improve passive left shoulder forward flexion to at least 125 degrees, passive ER in scapular plane to at least 75 degrees, passive internal rotation in scapular plane to at least 75 degrees, and passive abduction to at least 90 degrees in the scapular plane. STG Duration 6 wks (09/18/19: ER/IR goals not met) Group Home Goal (LTG) Patient to return to full active motion left shoulder LTG Duration 6 months (09/18/19: Progressing towards goal) One Impairment pain Short Term Goal (STG) Decrease pain to no greater than 3/10 STG Duration 6 wks (09/18/19: Pain after PT is 3-4/10, sometimes catch pain) Sales Research Analyst Goal (LTG) Decrease pain to no greater than 1/10 with functional use of left UE LTG Duration 6 months (09/18/19: Goal not met) Assessment Summary Assessment Reviewed SANDEEOM pulleys, added Tb FF standing at wall and supine foam roller with positive feedback good stretch and getting further. Provided caregiver training AAROM FF, GH post/inf mobes with good demonstration and patient feedback. added sleeper and cross body stretch to assist tighness post L shld reports wtih positive feedback and mirror for self visual proper form. Physical Therapy Plan Frequency and Duration Frequency of Treatment 2x/Week Plan of Care Start Date 09/18/19 Plan of Care End Date 11/17/19 Therapeutic Interventions Therapeutic Interventions Aquatic Therapy,Home Exercise Program,Manual Therapy, Neuromuscular Re-education, Self-Care/Home Management,Soft Tissue Mobilization,Taping, Therapeutic Activities, Therapeutic Exercises Modalities Cold Pack/Ice Massage,Electric Stimulation,Hot Packs Next Visit Focus/Plan Next Note Type Treatment Note Next Visit Plan Review HEP: L shld Tb an AAROM HEP Add: IR AAROM and tricep/ bicep TB. Received new script with aggressive ROM for stiffness 2x/wk x6 weeks. PT POC: Continue work toward goal of full AROM/PROM and pain reduction, strengthening LUE within tolerance, follow protocol 10/01/19 phase 3 if met phase 2 activities.
--- NOTE | 2020-01-26 10:20 | PT.OPDS ---
Current Diagnoses Primary osteoarthritis, left shoulder (10/07/19) Pain in left shoulder (10/07/19) Impingement syndrome of left shoulder (10/07/19) Weakness (10/07/19) Encounter for other orthopedic aftercare (10/07/19) Visit Care Team Role Provider Type Jose Brito MD Family Provider Physician Primary Care Provider Specialty: Internal Medicine Address: [address] [place] [address], [address], [address] Email: [email or web address] Shamar Blanchard MD Attending Provider Physician Specialty: Orthopedic Surgery Address: [address] [place] [address], [id number] Email: [email or web address] Visit Number Visit Number 16 Discharge Summary PT-OP-B Current Condition Start: 06/16/19 13:49 Freq: Status: Active Protocol: Document 06/16/19 15:03 [facility] (Rec: 06/19/19 15:27 [facility] [id number]) Current Condition History of Current Condition Onset Date 06/11/19 Current Complaints left shoulder pain and immobiity History of Current Condition Underwent left shoulder arthroscopic subacromial decompression with distal clavicle excision, arthroscopic extensive debridement, and partila rotator cuff repair. In surgery there was found to be significant tearing of the labrum with maority of the labrum being pulled off the glenoid and signs of a previous proximal biceps rupture. Patient reports she has been wearing the sling 24 hours a day at this time including to sleep as instructed. Doing some icing of left shoulder. is going to have back surgery and patient reports she needs to recover so she can help him with his recovery after surgery. Future Testing and Treatments Planned Patient returns to see Dr. Lyman 06/22/19 prior to next PT session Treatment Goals Patient/Caregiver Goals Regain full use of her left UE Prior Functional Status Baseline Function- ADL's Modified Independent Baseline Function- Mobility Modified Independent Baseline Function- Other painful with use of left LE Current Functional Impairments (Reported) Functional Limitations- ADL's unable to use left UE Personal Factors Other Personal Factors That May Effect Reports clumsy, not Therapy/Recovery able to help with PROM of her shoulder. PT-OP-C Subjective Start: 06/16/19 13:49 Freq: Status: Active Protocol: Document 10/07/19 12:18 SP (Rec: 10/07/19 13:07 SP [id number]) OP-PT Subjective Patient Comments Patient Comments Pt stated feeling little nauseous today, trying to balance ex, eating well, setting up 's surgery plans lately. L shld soreness . PT-OP-H Neuro Start: 06/16/19 13:49 Freq: Status: Active Protocol: Document 06/16/19 15:03 SAK (Rec: 06/19/19 15:27 SAK [id number]) Sensation Evaluation Gross Sensation Gross Sensation WNL Comments Summary Comments denied N/T PT-OP-J Posture/Palpation/Skin Start: 06/16/19 13:49 Freq: Status: Active Protocol: Document 06/16/19 15:03 SAK (Rec: 06/19/19 15:27 SAK [id number]) Posture Evaluation Position Sitting Head/C-Spine Posture Forward Head Shoulder Posture (L) Rounded,(R) Rounded Scapula Posture (L) Protracted,(R) Protracted Palpation Assessment Location left UT Palpation Findings Muscle Guarding Skin Assessment Incisional Assessment Incision Appearance/Comments covered with post-op dressing. No signs or symptoms of infection. PT-OP-K Range of Motion Start: 06/16/19 13:49 Freq: Status: Active Protocol: Document 09/18/19 13:31 LRN (Rec: 09/18/19 14:23 LRN [id number]) Shoulder Goniometric Range of Motion Shoulder Left Passive Testing Position Supine Flexion 155 Extension 53 Abduction 130 External Rotation at 90 degrees 50 Abduction Internal Rotation 52 PT-OP-M Strength Start: 06/16/19 13:49 Freq: Status: Active Protocol: Document 09/18/19 13:31 LRN (Rec: 09/18/19 14:23 LRN [id number]) Shoulder Strength Shoulder Manual Muscle Testing Left Flexion 3- Fair- Extension 5 Normal Abduction (C5) 4- Good- Adduction 3+ Fair+ External Rotation 2 Poor Internal Rotation 3+ Fair+ Horizontal Abduction 4 Good Horizontal Adduction 4- Good- Right Reason Not Measured WFL PT-OP-T Assessment and Plan Start: 06/16/19 13:49 Freq: Status: Active Protocol: Document 10/07/19 12:18 SP (Rec: 10/07/19 13:07 SP [id number]) Physical Therapy Assessment Goals Five Impairment knowledge deficit Short Term Goal (STG) instruct in post-op protocol for left shoulder rehab, assure understanding of precautions. Will be independent and compliant with HEP, with assistance of STG Duration ongoing Senior Care Goal (LTG) Patient to be independent and compliant with HEP, possibly aquatic exercise program. LTG Duration 6 months (09/18/19: Ongoing) Four Impairment functional activities. Short Term Goal (STG) patient to wear sling except for during exercises, no active use per protocol STG Duration 6 wks (09/18/19: Goal met, sling no longer needed) Patient Assessment Coordinator Goal (LTG) Patient able to return to full functional use of left UE with minimal pain including reaching overhead and behind her back. LTG Duration 6 months (09/18/19: improving ) Three Impairment strength Patient Assessment Coordinator Goal (LTG) Patient to demonstrate at least 4+/5 muscle strength throughout left shoulder LTG Duration 6 months (09/18/19: Progressing towards goal) Two Impairment ROM Short Term Goal (STG) Improve passive left shoulder forward flexion to at least 125 degrees, passive ER in scapular plane to at least 75 degrees, passive internal rotation in scapular plane to at least 75 degrees, and passive abduction to at least 90 degrees in the scapular plane. STG Duration 6 wks (09/18/19: ER/IR goals not met) Senior Care Goal (LTG) Patient to return to full active motion left shoulder LTG Duration 6 months (09/18/19: Progressing towards goal) One Impairment pain Short Term Goal (STG) Decrease pain to no greater than 3/10 STG Duration 6 wks (09/18/19: Pain after PT is 3-4/10, sometimes catch pain) Senior Care Goal (LTG) Decrease pain to no greater than 1/10 with functional use of left UE LTG Duration 6 months (09/18/19: Goal not met) Assessment Summary Assessment Reviewed AAROM pulleys, added Tb FF standing at wall and supine foam roller with positive feedback good stretch and getting further. Provided caregiver training AAROM FF, GH post/inf mobes with good demonstration and patient feedback. added sleeper and cross body stretch to assist tighness post L shld reports wtih positive feedback and mirror for self visual proper form. Physical Therapy Plan Frequency and Duration Frequency of Treatment 2x/Week Plan of Care Start Date 09/18/19 Plan of Care End Date 11/17/19 Therapeutic Interventions Therapeutic Interventions Aquatic Therapy,Home Exercise Program,Manual Therapy, Neuromuscular Re-education, Self-Care/Home Management,Soft Tissue Mobilization,Taping, Therapeutic Activities, Therapeutic Exercises Modalities Cold Pack/Ice Massage,Electric Stimulation,Hot Packs Next Visit Focus/Plan Next Note Type Treatment Note Next Visit Plan Review HEP: Andressa MCCARTY HEP Add: JOCELYNE MCCARTY and tricep/ bicep TB. Received new script with aggressive ROM for stiffness 2x/wk x6 weeks. PT POC: Continue work toward goal of full AROM/PROM and pain reduction, strengthening LUE within tolerance, follow protocol 10/01/19 phase 3 if met phase 2 activities.
== END 2020-01-26 13:17 ==
LOC: PHYS 12:15
PROVIDERS: Family Provider Internal Medicine; PCP Internal Medicine; Visit Provider Orthopaedic Surgery
DX: M19.012 Primary osteoarthritis, left shoulder (principal); M75.42 Impingement syndrome of left shoulder; Z47.89 Encounter for other orthopedic aftercare; M25.512 Pain in left shoulder; R53.1 Weakness
CPT/HCPCS: 97010; 97014; 97110; 97113; 97140; 97162; 97535; G0283

== ENCOUNTER 2019-10-23 11:30 | Emergency (ER) | payer BC, SELFPAY ==
[2019-10-23] VITALS (9 sets, daily range): BP systolic 141–161; BP diastolic 65–113; PULSE 62–79; RESP 14–21; TEMP 36.6; O2SAT 98–100; BMI 25.9
--- NOTE | 2019-10-23 12:21 | ED.AMS ---
HPI - Altered Mental Status General Chief Complaint: Altered Mental Status Stated Complaint: L Leg pain and new onset confusion Time Seen by Provider: 10/23/19 11:34 Source: patient, family and EMS Mode of arrival: Ambulatory Limitations: no limitations History of Present Illness HPI narrative: Patient is brought to the emergency department via EMS after being found to have altered mental status today. Patient's called EMS after finding that the patient could not really answer questions this morning. She has been awake, but generally can speak without difficulty. However, she has been largely nonverbal this morning. Patient's denies any focal deficits for the patient. She has been moved all 4 extremities, though she has been having left thigh pain that has been quite severe for the last approximately month. The patient has been taking Flexeril, gabapentin, hydrocodone, hydroxyzine, and vaped THC. is not aware of any dose changes. He is not aware of any use of any other substances. The patient cannot offer any information regarding her condition. She does answer ?no? when asked if she has chest pain or abdominal pain. She answers ?yes? when she is asked if her left thigh hurts with movement or with holding still. Related Data Home Medications Medication Instructions Recorded Confirmed Homeopathic Substance (ALLERGY) 1 tab SUBLINGUAL DIRECTED #0 01/09/12 10/23/19 aspirin 81 mg tablet,delayed 81 mg PO DAILY 05/02/18 10/23/19 release albuterol sulfate [Proventil HFA] 1 puff IH PRN PRN 06/05/19 10/23/19 cyclobenzaprine 10 mg PO TID PRN 06/05/19 10/23/19 glipizide 5 mg PO QAM PRN 06/05/19 10/23/19 sertraline 50 mg PO QDAY 06/05/19 10/23/19 atenolol 25 mg PO DAILY 10/23/19 10/23/19 atorvastatin 40 mg PO DAILY 10/23/19 10/23/19 diclofenac sodium 50 mg PO BID PRN 10/23/19 10/23/19 estradiol 1 mg PO DAILY 10/23/19 10/23/19 tamsulosin [Flomax] 0.4 mg PO DAILY 10/23/19 10/23/19 zolpidem 10 mg PO BEDTIME 12/06/19 12/06/19 Previous Rx's Medication Instructions Recorded medroxyprogesterone 10 mg tablet 10 mg PO DAILY #30 tab 12/09/18 fluticasone propionate 50 2 spray INTRANASAL SEE 03/22/19 mcg/actuation nasal INSTRUCTIONS #2 inhalation spray,suspension Glucose: Test Strips #100 each 04/14/19 hydroxyzine pamoate [Vistaril] 25 mg PO TID-QID PRN #60 cap 06/11/19 oxycodone-acetaminophen [Percocet] 2 tab PO Q4-6H PRN #60 tab 06/11/19 metformin 1,000 mg tablet See Rx Instructions PO .COMPLEX 06/22/19 #225 tab tramadol 50 mg tablet 50 mg PO TID PRN #60 tab 08/17/19 gabapentin 600 mg tablet 600 mg PO TID #120 tab 08/24/19 hydrocodone 7.5 mg-acetaminophen 1 - 2 tab PO Q4HP PRN #90 tab 10/12/19 325 mg tablet lisinopril 10 mg tablet 10 mg PO Q DAY #90 tab 10/12/19 Allergies Allergy/AdvReac Type Severity Reaction Status Date / Time banana [BANANA] Allergy Unknown Verified 10/23/19 11:42 Review of Systems Review of Systems ROS Unobtainable: Unobtainable due to mental status/LOC Patient History Medical History Back pain (Chronic 03/19/14) CAD (coronary atherosclerotic disease) (Chronic ~1998) Diabetic peripheral neuropathy (Chronic 11/10/15) Fibromyalgia (Chronic 03/12/17) Foraminal stenosis of lumbosacral region (Chronic) GERD (gastroesophageal reflux disease) (Chronic) Herniated disc (Acute) Hypertension (Chronic) Mixed hyperlipidemia (Chronic) Myocardial infarction (Acute ~1998) Recurrent major depressive disorder, in full remission (Chronic) Type 2 diabetes mellitus without complication (Chronic) Unspecified asthma (Chronic) Surgical History Status post appendectomy Surgical procedure planned (Resolved) Family History Sister Family history of diabetes mellitus (DM) Social History marital status: number of children: 0 household members: spouse lives independently: Yes caregiver/support person: No housing: house pets and animals: No education level: high school (Some College) occupational status: other (Retired) current occupational exposures/hazards: No 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 bhupendra/mandaeism: [employer] leisure activities: exercise (Walking, Enjoying [place].) and other (Gardening) Smoking Status: Current every day smoker Tobacco: How many years used: 25 Smokeless tobacco user: other (Cigarettes) quit status: quit date established (~1996) second hand exposure: Yes (Younger, and when out in public places.) alcohol intake: never substance use type: does not use Smoking Status: Current every day smoker tobacco type: vaping Substance Use Type: marijuana Exam Initial Vital Signs Initial Vital Signs: Vital Signs Temperature 98 F 10/23/19 11:42 Pulse Rate 76 10/23/19 11:42 Respiratory Rate 18 10/23/19 11:42 Blood Pressure 159/97 H 10/23/19 11:42 Pulse Oximetry 100 10/23/19 11:42 Const General: cooperative and well developed Nutritional Appearance: well nourished Orientation: awake and not confused HENMT Head: normocephalic and atraumatic Ears: external ears normal and TM's normal bilaterally Nose: external nose normal and No nasal discharge Face and sinus: sinuses nontender, face symmetric, no sinus tenderness and No dry mucous membranes Mouth: oral mucosae normal and moist mucous membranes Teeth and gingiva: dentition normal Throat: tonsils normal and uvula midline Eyes General: appearance normal, both eyes and all related structures Eyelids: eyelids normal Conjunctivae: conjunctivae normal Sclera: sclerae normal Pupils: PERRL EOM: EOM intact bilaterally Neck Neck: normal visual inspection, trachea midline, No lymphadenopathy, No midline deformity and No JVD Lymphatic: No lymphedema Chest Chest: normal inspection of the chest Resp Effort & Inspection: normal respiratory effort, able to speak in complete sentences, no respiratory distress and no use of accessory muscles Auscultation: clear to auscultation bilaterally, no rales, no rhonchi and no wheezes Cardio Rate: regular rate Rhythm: regular rhythm Heart Sounds: no click, no gallops, no murmurs and no rubs Pulses: normal peripheral pulses GI Inspection: non-distended Palpation: soft, no hepatosplenomegaly, No guarding, No pulsatile mass and No tender Auscultation: normal bowel sounds Back/Spine/Pelvis Back: No CVA tenderness Cervical Spine: cervical ROM normal and No pain with cervical ROM Thoracic/Lumbar Spine: thoracic and lumbar spine normal to inspection Skin General: no rashes or lesions noted, No jaundice and No petechiae Neuro General: awake and no focal motor deficits Cranial Nerves: CN's II-XI intact bilaterally Speech: speech normal Motor: muscle tone normal throughout Sensory Exam: no sensory deficits noted Other: Patient is minimally verbal. When she speaks, her speech is clear. In answer to most questions, she gives a little smile but does not answer. Patient does not reliably follow commands. Extrem General: full ROM, no clubbing, cyanosis or edema, no pedal edema and no calf tenderness Psych Appearance: well kempt Mental Status: mental status grossly normal Attitude: cooperative Thought Content: normal and suicidality Judgment: judgment good Course Course Course Narrative: Patient was worked up labs, EKG, urinalysis, urine drug screen, lower extremity ultrasound, and head CT. The patient was found have an elevated troponin in [place] range, and as such, I did talk with Dr. Grimm of Cardiology at [facility]. She agreed to consult on the patient. So her Dr. Broderick, who was on hospitalist call, and he did agree to accept the patient transfer. The remainder of workup was negative. Patient was started on aspirin, Plavix, Lopressor, and a heparin drip. Orders Ordered: ED Orders 10/23/19 12:20 CT head/brain wo con Stat 10/23/19 12:50 Ammonia (NH3) Stat Complete Blood Count AUTO DIFF Stat Comprehensive Metabolic Panel Stat Lactate (Lactic Acid) Stat Troponin & CK Cardiac Panel Stat 10/23/19 13:10 Urinalysis and Microscopic Stat Urine Drug Screen, Rapid Stat 10/23/19 13:56 Ethanol (ETOH) Stat 10/23/19 13:57 US periph venous low extrem lt Stat Metoprolol Tartrate (Lopressor) 5 mg IV Q5M [facility] Stop: 10/23/19 14:26 Discontinued Medications Aspirin (Aspirin) 325 mg PO NOW ONE Stop: 10/23/19 14:09 Aspirin (Aspirin Chew) 324 mg PO NOW ONE Stop: 10/23/19 14:17 Clopidogrel Bisulfate (Plavix) 300 mg PO NOW ONE Stop: 10/23/19 14:09 Last Admin: 10/23/19 14:16 Dose: 300 mg Documented by: JOSE Sodium Chloride (Normal Saline 0.9%) 1,000 mls @ 1,000 mls/hr IV BOLUS ONE Stop: 10/23/19 12:46 Last Admin: 10/23/19 12:44 Dose: 1,000 mls/hr Documented by: JOSE Ketorolac Tromethamine (Toradol) 30 mg IV NOW ONE Stop: 10/23/19 14:08 Last Admin: 10/23/19 14:13 Dose: 30 mg Documented by: JOSE Vital Signs Vital signs: Vital Signs - 8 hr 10/23/19 11:42 10/23/19 13:13 10/23/19 13:40 Temperature 98 F Pulse Rate 76 76 79 Respiratory Rate 18 14 19 Blood Pressure 159/97 H Blood Pressure [Left Arm] 161/113 H 141/75 H Pulse Oximetry 100 98 100 MDM - Altered Mental Status Medical Records Attestation: I reviewed the patient's medical records. Lab Data Attestation: I reviewed the patient's lab results. Result diagrams: 10/23/19 12:50 10/23/19 12:50 Labs: Lab Results 10/23/19 10/23/19 10/23/19 Range/Units 12:20 12:50 12:50 WBC 12.0 H (4.5-11.0) X10^3/uL RBC 4.76 (4.0-5.2) X10^6/uL Hgb 13.6 (12.0-16.0) g/dL Hct 41.6 (36-46) % MCV 87.4 (80-100) fL MCH 28.7 (26-34) PG MCHC 32.8 (30-36) % RDW 13.1 (11.6-14.8) % Plt Count 300 (150-400) X10^3/uL Neut % (Auto) 76.4 H (50-75) % Lymph % (Auto) 17.9 L (25-40) % [place] % (Auto) 5.4 (3-14) % Eos % (Auto) 0.0 L (2-4) % Baso % (Auto) 0.3 (0-2) % Neut # (Auto) 9200 H (2990-1011) /uL Lymph # (Auto) 2100 (0199-5105) /uL [place] # (Auto) 600 (0-900) /uL Eos # (Auto) 0 (0-450) /uL Baso # (Auto) 0 (0-100) /uL Sodium 140 (137-145) mmol/L Potassium 4.9 (3.4-5.1) mmol/L Chloride 101 (98-107) mmol/L Carbon Dioxide 23 (22-32) mmol/L BUN 11 (7-17) mg/dL Creatinine 0.60 (0.52-1.04) mg/dL Estimated GFR > 60.0 (>60) mL/min BUN/Creatinine Ratio 18.3 (6-22) Glucose 177 H (80-110) mg/dL Lactate (0.7-2.1) mmol/L Calcium 10.2 (8.4-10.2) mg/dL Total Bilirubin 0.7 (0.2-1.3) mg/dL AST 29 (14-36) IU/L ALT 20 (<35) IU/L Alkaline Phosphatase 61 (38-126) U/L Ammonia (9-30) umol/L Total Creatine Kinase 156 H (30-135) U/L CK-MB (CK-2) 2.37 (<2.37) ng/mL CK-MB (CK-2) Rel Index 1.5 (1.5-5.0) % Troponin I 0.266 H* (0.01-0.034) ng/mL Total Protein 8.2 (6.3-8.2) g/dL Albumin 5.3 H (3.5-5.0) g/dL Globulin 2.9 (1.7-4.1) g/dL Albumin/Globulin Ratio 1.8 (1.0-2.8) Urine Color Urine Appearance Urine pH (4.5-8.0) Ur Specific [place] (1.000-1.035) Urine Protein (Negative) Urine Glucose (UA) (Negative) g/dL Urine Ketones (NEGATIVE) Urine Occult Blood (Negative) Urine Nitrate (Negative) Urine Bilirubin (NEGATIVE) Urine Urobilinogen (0.2) E.U./dL Ur Leukocyte Esterase (NEGATIVE) Urine RBC (0-5/HPF) Urine WBC (0-5/HPF) Ur Squamous Epith Cells (0-5/HPF) Ur Transition Epith Cell (0-5/HPF) Amorphous Sediment Urine Bacteria (None) Ur Culture Indicated? U Morph 300 ng/mL cutoff (Negative) Ur Oxycodone Screen (Negative) Urine Methadone Screen (Negative) Ur Barbiturates Screen (Negative) U Tricyclic Antidepress (Negative) Ur Phencyclidine Scrn (Negative) Ur Amphetamines Screen (Negative) U Methamphetamines Scrn (Negative) Ur MDMA Scrn (Ecstasy) (Negative) U Benzodiazepines Scrn (Negative) Urine Cocaine Screen (Negative) U Marijuana (THC) Screen (Negative) Ethyl Alcohol < 10 ( - 10) mg/dL 10/23/19 10/23/19 10/23/19 Range/Units 12:50 12:50 13:10 WBC (4.5-11.0) X10^3/uL RBC (4.0-5.2) X10^6/uL Hgb (12.0-16.0) g/dL Hct (36-46) % MCV (80-100) fL MCH (26-34) PG MCHC (30-36) % RDW (11.6-14.8) % Plt Count (150-400) X10^3/uL Neut % (Auto) (50-75) % Lymph % (Auto) (25-40) % [place] % (Auto) (3-14) % Eos % (Auto) (2-4) % Baso % (Auto) (0-2) % Neut # (Auto) (6940-2661) /uL Lymph # (Auto) (1726-1847) /uL [place] # (Auto) (0-900) /uL Eos # (Auto) (0-450) /uL Baso # (Auto) (0-100) /uL Sodium (137-145) mmol/L Potassium (3.4-5.1) mmol/L Chloride (98-107) mmol/L Carbon Dioxide (22-32) mmol/L BUN (7-17) mg/dL Creatinine (0.52-1.04) mg/dL Estimated GFR (>60) mL/min BUN/Creatinine Ratio (6-22) Glucose (80-110) mg/dL Lactate 1.4 (0.7-2.1) mmol/L Calcium (8.4-10.2) mg/dL Total Bilirubin (0.2-1.3) mg/dL AST (14-36) IU/L ALT (<35) IU/L Alkaline Phosphatase (38-126) U/L Ammonia < 9.0 L (9-30) umol/L Total Creatine Kinase (30-135) U/L CK-MB (CK-2) (<2.37) ng/mL CK-MB (CK-2) Rel Index (1.5-5.0) % Troponin I (0.01-0.034) ng/mL Total Protein (6.3-8.2) g/dL Albumin (3.5-5.0) g/dL Globulin (1.7-4.1) g/dL Albumin/Globulin Ratio (1.0-2.8) Urine Color Yellow Urine Appearance Clear Urine pH 5.5 (4.5-8.0) Ur Specific [place] 1.015 (1.000-1.035) Urine Protein 2+ H (Negative) Urine Glucose (UA) Negative (Negative) g/dL Urine Ketones 2+ H (NEGATIVE) Urine Occult Blood 2+ H (Negative) Urine Nitrate Negative (Negative) Urine Bilirubin Negative (NEGATIVE) Urine Urobilinogen 0.2 (0.2) E.U./dL Ur Leukocyte Esterase Negative (NEGATIVE) Urine RBC None seen (0-5/HPF) Urine WBC 0-1/hpf (0-5/HPF) Ur Squamous Epith Cells 0-1 /hpf (0-5/HPF) Ur Transition Epith Cell 5-10/hpf H (0-5/HPF) Amorphous Sediment 2+ Urine Bacteria Occasional (0-1) (None) Ur Culture Indicated? Cult not indicated U Morph 300 ng/mL cutoff (Negative) Ur Oxycodone Screen (Negative) Urine Methadone Screen (Negative) Ur Barbiturates Screen (Negative) U Tricyclic Antidepress (Negative) Ur Phencyclidine Scrn (Negative) Ur Amphetamines Screen (Negative) U Methamphetamines Scrn (Negative) Ur MDMA Scrn (Ecstasy) (Negative) U Benzodiazepines Scrn (Negative) Urine Cocaine Screen (Negative) U Marijuana (THC) Screen (Negative) Ethyl Alcohol ( - 10) mg/dL 10/23/19 Range/Units 13:10 WBC (4.5-11.0) X10^3/uL RBC (4.0-5.2) X10^6/uL Hgb (12.0-16.0) g/dL Hct (36-46) % MCV (80-100) fL MCH (26-34) PG MCHC (30-36) % RDW (11.6-14.8) % Plt Count (150-400) X10^3/uL Neut % (Auto) (50-75) % Lymph % (Auto) (25-40) % [place] % (Auto) (3-14) % Eos % (Auto) (2-4) % Baso % (Auto) (0-2) % Neut # (Auto) (1959-7183) /uL Lymph # (Auto) (5773-9627) /uL [place] # (Auto) (0-900) /uL Eos # (Auto) (0-450) /uL Baso # (Auto) (0-100) /uL Sodium (137-145) mmol/L Potassium (3.4-5.1) mmol/L Chloride (98-107) mmol/L Carbon Dioxide (22-32) mmol/L BUN (7-17) mg/dL Creatinine (0.52-1.04) mg/dL Estimated GFR (>60) mL/min BUN/Creatinine Ratio (6-22) Glucose (80-110) mg/dL Lactate (0.7-2.1) mmol/L Calcium (8.4-10.2) mg/dL Total Bilirubin (0.2-1.3) mg/dL AST (14-36) IU/L ALT (<35) IU/L Alkaline Phosphatase (38-126) U/L Ammonia (9-30) umol/L Total Creatine Kinase (30-135) U/L CK-MB (CK-2) (<2.37) ng/mL CK-MB (CK-2) Rel Index (1.5-5.0) % Troponin I (0.01-0.034) ng/mL Total Protein (6.3-8.2) g/dL Albumin (3.5-5.0) g/dL Globulin (1.7-4.1) g/dL Albumin/Globulin Ratio (1.0-2.8) Urine Color Urine Appearance Urine pH (4.5-8.0) Ur Specific [place] (1.000-1.035) Urine Protein (Negative) Urine Glucose (UA) (Negative) g/dL Urine Ketones (NEGATIVE) Urine Occult Blood (Negative) Urine Nitrate (Negative) Urine Bilirubin (NEGATIVE) Urine Urobilinogen (0.2) E.U./dL Ur Leukocyte Esterase (NEGATIVE) Urine RBC (0-5/HPF) Urine WBC (0-5/HPF) Ur Squamous Epith Cells (0-5/HPF) Ur Transition Epith Cell (0-5/HPF) Amorphous Sediment Urine Bacteria (None) Ur Culture Indicated? U Morph 300 ng/mL cutoff Positive H (Negative) Ur Oxycodone Screen Negative (Negative) Urine Methadone Screen Negative (Negative) Ur Barbiturates Screen Negative (Negative) U Tricyclic Antidepress Negative (Negative) Ur Phencyclidine Scrn Negative (Negative) Ur Amphetamines Screen Negative (Negative) U Methamphetamines Scrn Negative (Negative) Ur MDMA Scrn (Ecstasy) Negative (Negative) U Benzodiazepines Scrn Negative (Negative) Urine Cocaine Screen Negative (Negative) U Marijuana (THC) Screen Positive H (Negative) Ethyl Alcohol ( - 10) mg/dL Imaging Data CT scan - head: Radiologist's impression: PROCEDURE: CT HEAD/BRAIN WO CON INDICATIONS: altered mental state TECHNIQUE: Noncontrast 4.5 mm thick angled axial sections acquired from the foramen magnum to the vertex, with coronal and sagittal reformats. For radiation dose reduction, the following was used: automated exposure control, adjustment of mA and/or kV according to patient size. COMPARISON: None. FINDINGS: Image quality: Excellent. CSF spaces: Basal cisterns are patent. No extra-axial fluid collections. Ventricles are normal in size and shape. Brain: No midline shift. No intracranial masses or hemorrhage. [place]-white matter interface is normal. Skull and face: Calvarium and visualized facial bones are intact, without suspicious lesions. Sinuses: Visualized sinuses and mastoids are clear. IMPRESSION: Mild patient motion, patient unable to fully cooperate, no acute disease. Source of altered mental status is not identified. Dictated by: Peña Delatorre M.D. on 10/23/2019 at 12:50 Approved by: Peña Delatorre M.D. on 10/23/2019 at 12:51 Venous US: Radiologist's impression: PROCEDURE: US PERIPH VENOUS LOW EXTREM LT INDICATIONS: pain TECHNIQUE: Real-time imaging, as well as color and pulse Doppler interrogation, were performed of the lower extremity deep veins from the inguinal ligament to the popliteal fossa. COMPARISON: None. FINDINGS: The common femoral, femoral and popliteal veins are normally compressible, and free of intraluminal thrombus. Color and pulse Doppler demonstrate normal phasic intraluminal flow. There is normal augmentation response to distal compression maneuver. IMPRESSION: No acute deep venous thrombosis. Dictated by: Sandra Mckeon M.D. on 10/23/2019 at 13:37 Approved by: Sandra Mckeon M.D. on 10/23/2019 at 13:37 Discharge Plan Departure Prescriptions: No Action Homeopathic Substance (ALLERGY) 1 tab Sublingual DIRECTED Qty: 0 RF: 0 medroxyprogesterone 10 mg tablet 10 mg PO DAILY Qty: 30 RF: 11 fluticasone propionate 50 mcg/actuation spray,suspension 2 spray Intranasal SEE INSTRUCTIONS Qty: 2 RF: 3 (DME) Glucose: Test Strips 0 .Route .MEDSUPPLY Qty: 100 RF: 3 metformin 1,000 mg tablet See Rx Instructions PO .COMPLEX Qty: 225 RF: 3 tramadol 50 mg tablet 50 mg PO TID PRN (Reason: pain) Qty: 60 RF: 1 gabapentin [Neurontin] 600 mg tablet 600 mg PO TID Qty: 120 RF: 3 lisinopril 10 mg tablet 10 mg PO Q DAY Qty: 90 RF: 3 hydrocodone-acetaminophen 7.5-325 mg tablet 1 - 2 tab PO Q4HP PRN (Reason: pain in back) Qty: 90 RF: 0 aspirin 81 mg tablet,delayed release (DR/EC) 81 mg PO DAILY RF: 0 cyclobenzaprine 10 MG tablet 10 mg PO TID PRN (Reason: Muscle Spasm) RF: 0 sertraline 100 mg tablet 50 mg PO QDAY RF: 0 albuterol sulfate [Proventil HFA] 90 mcg/actuation HFA aerosol inhaler 1 puff IH PRN PRN (Reason: Shortness Of Breath) RF: 0 glipizide 5 mg tablet 5 mg PO QAM PRN (Reason: If I need it for my diabetes) RF: 0 oxycodone-acetaminophen [Percocet] 5-325 mg tablet 2 tab PO Q4-6H PRN (Reason: pain) Qty: 60 RF: 0 hydroxyzine pamoate [Vistaril] 25 mg capsule 25 mg PO TID-QID PRN (Reason: spasms) Qty: 60 RF: 0 atorvastatin 40 mg tablet 40 mg PO DAILY RF: 0 atenolol 25 mg tablet 25 mg PO DAILY RF: 0 estradiol 1 mg tablet 1 mg PO DAILY RF: 0 tamsulosin [Flomax] 0.4 mg capsule 0.4 mg PO DAILY RF: 0 diclofenac sodium 50 mg tablet,delayed release (DR/EC) 50 mg PO BID PRN (Reason: pain) RF: 0 zolpidem 10 mg tablet 10 mg PO BEDTIME RF: 0
[2019-10-23] MEDS: SODIUM CHLORIDE 0.9% 1,000 ML 1000 ML IV (12:44)
[2019-10-23 13:07] LABS: Add Manual Diff / Slide Review NO; Basophils Absolute Auto 0 /uL (0-100); Basophils Percent Auto 0.3 % (0-2); Eosinophils Absolute Auto 0 /uL (0-450); Hematocrit 41.6 % (36-46); Hemoglobin 13.6 g/dL (12.0-16.0); Lymphocytes Absolute Auto 2100 /uL (1100-4500); Lymphocytes Percent Auto 17.9 % (25-40); Mean Corpuscular HGB Conc 32.8 % (30-36); Mean Corpuscular Hemoglobin 28.7 PG (26-34); Mean Corpuscular Volume 87.4 fL (80-100); Monocytes Absolute Auto 600 /uL (0-900); Monocytes Percent Auto 5.4 % (3-14); Neutrophils Absolute Auto 9200 /uL (1500-7000); Neutrophils Percent Auto 76.4 % (50-75); Platelet Count 300 X10^3/uL (150-400); Red Blood Cell Count 4.76 X10^6/uL (4.0-5.2); Red Cell Distribution Width 13.1 % (11.6-14.8)
[2019-10-23 13:17] LABS: RBC Urine None Seen (0-5/HPF)
[2019-10-23 13:19] LABS: Appearance Urine UA CLEAR; Bilirubin Urine UA NEGATIVE (NEGATIVE); Color Urine UA YELLOW; Glucose Urine UA NEGATIVE (Negative); Ketones Urine UA 2+ (NEGATIVE); Leukocyte Esterase Urine UA NEGATIVE (NEGATIVE); Nitrite Urine UA NEGATIVE (Negative); Occult Blood Urine UA 2+ (Negative); Protein Urine UA 2+ (Negative); Specific Gravity Urine UA 1.015 (1.000-1.035); Urobilinogen Urine UA 0.2 E.U./dL (0.2)
[2019-10-23 13:26] LABS: Ammonia (NH3) < 9.0 umol/L (9-30)
[2019-10-23 13:27] LABS: Alanine Aminotransferase 20 IU/L (<35); Albumin 5.3 g/dL (3.5-5.0); Albumin Globulin Ratio 1.8 (1.0-2.8); Alkaline Phosphatase 61 U/L (38-126); Aspartate Aminotransferase 29 IU/L (14-36); BUN Creatinine Ratio 18.3 (6-22); Bilirubin Total 0.7 mg/dL (0.2-1.3); Blood Urea Nitrogen 11 mg/dL (7-17); Calcium 10.2 mg/dL (8.4-10.2); Carbon Dioxide 23 mmol/L (22-32); Chloride 101 mmol/L (98-107); Creatine Kinase 156 U/L (30-135); Estimated Glomerular Filt Rate > 60.0 mL/min (>60); Globulin 2.9 g/dL (1.7-4.1); Glucose 177 mg/dL (80-110); HEMOLYSIS 29 (0-50); Potassium 4.9 mmol/L (3.4-5.1); Sodium 140 mmol/L (137-145); Total Protein 8.2 g/dL (6.3-8.2)
[2019-10-23 13:28] LABS: Lactate (Lactic Acid) 1.4 mmol/L (0.7-2.1)
[2019-10-23 13:34] LABS: Amorphous Sediment Urine 2+; Bacteria Urine Occasional (0-1); Culture Indicated Urine Cult Not Indicated; Squamous Epithelial Cell Urine 0-1 /HPF (0-5/HPF); Transitional Epi Cells Urine 5-10/HPF (0-5/HPF); WBC Urine 0-1/HPF (0-5/HPF); pH Urine UA 5.5 (4.5-8.0)
[2019-10-23 13:39] LABS: UR Morphine/Opiate cutoff 300 Positive (Negative); Ur Creatinine Normal (Normal); Ur Specific Gravity Normal (Normal); Urine Amphetamines Negative (Negative); Urine Barbiturates Negative (Negative); Urine Benzodiazepines Negative (Negative); Urine Cocaine Negative (Negative); Urine MDMA Negative (Negative); Urine Methadone Negative (Negative); Urine Methamphetamines Negative (Negative); Urine Oxycodone Negative (Negative); Urine Phencyclidine Negative (Negative); Urine Tetrahydrocannabinol Positive (Negative); Urine Tricyclic Antidepressant Negative (Negative); Urine pH Normal (Normal)
[2019-10-23 13:42] LABS: CKMB % Relative Index 1.5 % (1.5-5.0); Creatine Kinase MB 2.37 ng/mL (<2.37)
--- NOTE | 2019-10-23 13:57 | DI.US.S_ITS ---
PROCEDURE: US PERIPH VENOUS LOW EXTREM LT INDICATIONS: pain TECHNIQUE: Real-time imaging, as well as color and pulse Doppler interrogation, were performed of the lower extremity deep veins from the inguinal ligament to the popliteal fossa. COMPARISON: None. FINDINGS: The common femoral, femoral and popliteal veins are normally compressible, and free of intraluminal thrombus. Color and pulse Doppler demonstrate normal phasic intraluminal flow. There is normal augmentation response to distal compression maneuver. IMPRESSION: No acute deep venous thrombosis. Dictated by: Sandra Mckeon M.D. on 10/23/2019 at 13:37 Approved by: Sandra Mckeon M.D. on 10/23/2019 at 13:37
[2019-10-23 14:04] LABS: Troponin I 0.266 ng/mL (0.01-0.034)
[2019-10-23 14:08] LABS: Ethanol (ETOH) < 10 mg/dL
[2019-10-23] MEDS: KETOROLAC 60 MG/2 ML VIAL 30 MG IV (14:13)
[2019-10-23] MEDS: CLOPIDOGREL 75 MG TABLET 300 MG PO (14:16)
[2019-10-23] MEDS: ASPIRIN 81 MG CHEW TAB 324 MG PO (14:24)
[2019-10-23] MEDS: METOPROLOL TARTRATE 5 MG/5 ML INJ IV ×3 (14:29→14:44)
[2019-10-23 15:21] LABS: Prothrombin Time 11.7 SECONDS (10.1-12.7)
[2019-10-23] MEDS: HEPARIN 5,000 UNIT/ML VIAL 5000 UNIT IV (15:22)
[2019-10-23] MEDS: HEPARIN DRIP 25,000 UNIT/500 ML IV.SOLN 16.438 UNIT IV (15:22)
[2019-10-23 15:23] LABS: PTT Partial Thromboplastin Tim 31 SECONDS (26.4-36.2)
--- NOTE | 2019-10-23 16:20 | PC.NURSE ---
Pt was very restless, asked if she needed to void. Concerned patient was not communicating need to void. Pt has had a brief on since arrival dry. Bladder scan showed >400. [place] placed. 650cc out
== END 2019-10-23 16:18 | disposition short-term general hospital (02) ==
PROVIDERS: Emergency Provider Emergency Medicine; Family Provider Internal Medicine; PCP Internal Medicine
DX: R41.82 Altered mental status, unspecified (principal); R79.89 Other specified abnormal findings of blood chemistry
CPT/HCPCS: 51701; 51798; 70450; 80053; 80305; 80320; 81001; 82140; 82550; 82553; 83605; 84484; 85025; 85610; 85730; 93005; 93971; 96361; 96365; 96375; 99285; J1644; J1885

== ENCOUNTER 2019-12-08 08:27 | Emergency (ER) | payer BC, SELFPAY ==
[2019-12-08 08:50] VITALS: BP 151/62; PULSE 110; RESP 12; TEMP 36.6; O2SAT 100
--- NOTE | 2019-12-08 09:26 | ED.NEUROSD ---
HPI - Neuro Symptoms/Deficit General Chief Complaint: Neuro Symptoms/Deficit Stated Complaint: dazed,confused,seeing things Time Seen by Provider: 12/08/19 08:49 Source: patient and EMS Mode of arrival: EMS Limitations: no limitations History of Present Illness HPI Narrative: Patient is a 64-year-old female brought in by her for confusion and altered mental status. The states that yesterday around noon she started hallucinating and talking to people who weren't there. He is worried that this may be medication related. She says that she feels nauseous she hasn't actually vomited but has been dry heaving. She denies having any symptoms and denies any hallucinations she does not think that she needs to be here. states that she has not been sick with fever, but has been chilled and can't get warm. She is currently afebrile. She previously had symptoms like this in October of 2019 where she was found to have a non ST elevated [place]. On Anticoagulants: No Related Data Home Medications Medication Instructions Recorded Confirmed Homeopathic Substance (ALLERGY) 1 tab SUBLINGUAL DIRECTED #0 01/09/12 12/08/19 aspirin 81 mg tablet,delayed 81 mg PO DAILY 05/02/18 12/08/19 release albuterol sulfate [Proventil HFA] 1 puff IH PRN PRN 06/05/19 12/08/19 glipizide 5 mg PO QAM PRN 06/05/19 12/08/19 atenolol 25 mg PO DAILY 10/23/19 12/08/19 atorvastatin 40 mg PO QPM 10/23/19 12/08/19 diclofenac sodium 50 mg PO BID PRN 10/23/19 12/08/19 estradiol 1 mg PO DAILY 10/23/19 12/08/19 tamsulosin [Flomax] 0.4 mg PO DAILY 10/23/19 12/08/19 zolpidem 10 mg tablet 10 mg PO BEDTIME tab 11/23/19 12/08/19 fluticasone propionate 2 spray INTRANASAL PRN PRN 12/08/19 12/08/19 lisinopril 10 mg PO DAILY 12/08/19 12/08/19 medroxyprogesterone 10 mg PO DAILY 12/08/19 12/08/19 melatonin 5 mg PO BEDTIME PRN 12/08/19 12/08/19 Previous Rx's Medication Instructions Recorded Glucose: Test Strips #100 each 04/14/19 metformin 1,000 mg tablet See Rx Instructions PO .COMPLEX 06/22/19 #225 tab tramadol 50 mg tablet 50 mg PO TID PRN #60 tab 08/17/19 gabapentin 600 mg tablet 600 mg PO TID #120 tab 08/24/19 [address]ing #1 each 10/30/19 duloxetine 30 mg capsule,delayed 30 mg PO DAILY #30 cap 10/30/19 release cyclobenzaprine 10 mg tablet 10 mg PO TID PRN #60 tab 11/17/19 desipramine 10 mg tablet 10 mg PO BEDTIME #30 tab 11/23/19 hydrocodone 7.5 mg-acetaminophen 1 - 2 tab PO Q4HP PRN #90 tab 11/26/19 325 mg tablet Allergies Allergy/AdvReac Type Severity Reaction Status Date / Time banana [BANANA] Allergy Unknown Verified 12/03/19 15:53 Review of Systems Review of Systems Narrative: GENERAL: Denies chills, fatigue, malaise, fever, sweats, travel HEENT: Denies sinus pain, ear pain, sore throat, difficulty swallowing, neck pain RESPIRATORY: Denies dyspnea, cough, wheezing, hemoptysis, sputum. CARDIOVASCULAR: Denies chest pain, palpitations, orthopnea, edema GASTROINTESTINAL: + nausea, see HPI denies any abdominal pain or vomiting : Denies dysuria, frequency, incontinence, hematuria, urinary retention, flank pain. MUSCULOSKELETAL: Denies weakness, joint pain, or bony pain SKIN: No rash, no erythema, no pruritus NEUROLOGIC: Denies weakness, dizziness, headache, numbness, change in speech, confusion PSYCHIATRIC: No concerning psychosocial issues. 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[employer]: Jewish leisure activities: exercise (Walking, Enjoying Walnut.) and other (Gardening) Smoking Status: Former smoker Tobacco: How many years used: 25 Smokeless tobacco user: other (Cigarettes) quit status: quit date established (~1996) second hand exposure: Yes (Younger, and when out in public places.) alcohol intake: never substance use type: does not use Smoking Status: Former smoker tobacco type: vaping Substance Use Type: marijuana Exam Initial Vital Signs Initial Vital Signs: Vital Signs Temperature 97.8 F 12/08/19 08:50 Pulse Rate 110 H 12/08/19 08:50 Respiratory Rate 12 12/08/19 08:50 Blood Pressure 151/62 H 12/08/19 08:50 Pulse Oximetry 100 12/08/19 08:50 GENERAL: Well-appearing, well-nourished and in no acute distress. HEENT: Head atraumatic,EOMI, pupils reactive, face symmetric CARDIOVASCULAR: Regular rate and rhythm without murmurs, rubs or gallops. RESPIRATORY: Breath sounds equal bilaterally, no wheezes rales or rhonchi. ABDOMEN: Soft, nontender. Normoactive bowel sounds all 4 quadrants. No guarding or rebound. EXTREMITIES: Normal range of motion, no clubbing or edema. Neurovascularly intact NEUROLOGICAL: Alert and oriented x4.Normal gait and speech. Cranial nerves II through XII grossly intact. Good [id number], good [id number], strength equal bilaterally, no dysarthria or aphasia, sensation in tact to soft touch bilaterally, no visual changes, no facial droop SKIN: Warm, dry, no laceration, no petechiae, no rashes or lesions. Course Orders Ordered: ED Orders 12/08/19 09:08 Blood Culture Stat 12/08/19 09:42 CT head/brain wo con Stat 12/08/19 10:21 Acetaminophen Stat Complete Blood Count AUTO DIFF Stat Comprehensive Metabolic Panel Stat Ethanol (ETOH) Stat Lipase Stat Partial Thromboplastin Time Stat Procalcitonin Stat Prothrombin Time INR Stat Salicylate Stat Thyroid Stimulating Hormone Stat Troponin & CK Cardiac Panel Stat 12/08/19 12:02 Urinalysis and Microscopic Stat Urine Drug Screen, Rapid Stat Discontinued Medications Sodium Chloride (Normal Saline 0.9%) 1,000 mls @ 150 mls/hr IV CONT IMTIAZ Last Infusion: 12/08/19 10:41 Dose: 0 mls/hr Documented by: Admin: 12/08/19 09:35 Dose: 1,000 mls/hr Documented by: TY Vital Signs Vital signs: Vital Signs - 8 hr 12/08/19 08:50 12/08/19 09:30 12/08/19 10:32 Temperature 97.8 F Pulse Rate 110 H 105 H 89 Respiratory Rate 12 12 25 H Blood Pressure 151/62 H Blood Pressure [Right Arm] 151/71 H 155/68 H Pulse Oximetry 100 99 97 12/08/19 11:08 12/08/19 12:41 Temperature Pulse Rate 101 H 104 H Respiratory Rate 25 H 18 Blood Pressure Blood Pressure [Right Arm] 154/72 H 154/72 H Pulse Oximetry 100 99 MDM - Neuro Symptoms/Deficit Lab Data Attestation: I reviewed the patient's lab results. Result diagrams: 12/08/19 10:21 12/08/19 10:21 Labs: Lab Results 12/08/19 12/08/19 12/08/19 Range/Units 10:21 10:21 10:21 WBC 11.0 (4.5-11.0) X10^3/uL RBC 3.71 L (4.0-5.2) X10^6/uL Hgb 11.0 L (12.0-16.0) g/dL Hct 32.5 L (36-46) % MCV 87.8 (80-100) fL MCH 29.7 (26-34) PG MCHC 33.9 (30-36) % RDW 13.4 (11.6-14.8) % Plt Count 236 (150-400) X10^3/uL Neut % (Auto) 56.7 (50-75) % Lymph % (Auto) 31.4 (25-40) % [place] % (Auto) 9.3 (3-14) % Eos % (Auto) 2.0 (2-4) % Baso % (Auto) 0.6 (0-2) % Neut # (Auto) 6200 (8349-9572) /uL Lymph # (Auto) 3400 (7818-2841) /uL [place] # (Auto) 1000 H (0-900) /uL Eos # (Auto) 200 (0-450) /uL Baso # (Auto) 100 (0-100) /uL PT (10.1-12.7) SECONDS INR (0.9-1.3) APTT (26.4-36.2) SECONDS Sodium (137-145) mmol/L Potassium (3.4-5.1) mmol/L Chloride (98-107) mmol/L Carbon Dioxide (22-32) mmol/L BUN (7-17) mg/dL Creatinine (0.52-1.04) mg/dL Estimated GFR (>60) mL/min BUN/Creatinine Ratio (6-22) Glucose (80-110) mg/dL Calcium (8.4-10.2) mg/dL Total Bilirubin (0.2-1.3) mg/dL AST (14-36) IU/L ALT (<35) IU/L Alkaline Phosphatase (38-126) U/L Total Creatine Kinase 126 (30-135) U/L CK-MB (CK-2) 1.24 (<2.37) ng/mL CK-MB (CK-2) Rel Index 1.0 L (1.5-5.0) % Troponin I < 0.012 (0.01-0.034) ng/mL Total Protein (6.3-8.2) g/dL Albumin (3.5-5.0) g/dL Globulin (1.7-4.1) g/dL Albumin/Globulin Ratio (1.0-2.8) Lipase (23-300) U/L Procalcitonin < 0.05 (<0.5) ng/mL TSH (0.47-4.68) uIU/mL Urine Color Urine Appearance Urine pH (4.5-8.0) Ur Specific [place] (1.000-1.035) Urine Protein (Negative) Urine Glucose (UA) (Negative) g/dL Urine Ketones (NEGATIVE) Urine Occult Blood (Negative) Urine Nitrate (Negative) Urine Bilirubin (NEGATIVE) Urine Urobilinogen (0.2) E.U./dL Ur Leukocyte Esterase (NEGATIVE) Urine RBC (0-5/HPF) Urine WBC (0-5/HPF) Ur Squamous Epith Cells (0-5/HPF) Urine Bacteria (None) Ur Culture Indicated? Salicylates (<20) mg/dL U Opiates 300ng/mL cut (Negative) Ur Oxycodone Screen (Negative) Urine Methadone Screen (Negative) Acetaminophen (10-30) ug/mL Ur Barbiturates Screen (Negative) U Tricyclic Antidepress (Negative) Ur Phencyclidine Scrn (Negative) Ur Amphetamines Screen (Negative) U Methamphetamines Scrn (Negative) Ur MDMA Scrn (Ecstasy) (Negative) U Benzodiazepines Scrn (Negative) Urine Cocaine Screen (Negative) U Marijuana (THC) Screen (Negative) Ethyl Alcohol ( - 10) mg/dL 12/08/19 12/08/19 12/08/19 Range/Units 10:21 10:21 10:21 WBC (4.5-11.0) X10^3/uL RBC (4.0-5.2) X10^6/uL Hgb (12.0-16.0) g/dL Hct (36-46) % MCV (80-100) fL MCH (26-34) PG MCHC (30-36) % RDW (11.6-14.8) % Plt Count (150-400) X10^3/uL Neut % (Auto) (50-75) % Lymph % (Auto) (25-40) % [place] % (Auto) (3-14) % Eos % (Auto) (2-4) % Baso % (Auto) (0-2) % Neut # (Auto) (0856-0771) /uL Lymph # (Auto) (1256-3550) /uL [place] # (Auto) (0-900) /uL Eos # (Auto) (0-450) /uL Baso # (Auto) (0-100) /uL PT 11.6 (10.1-12.7) SECONDS INR 1.0 (0.9-1.3) APTT 23 L D (26.4-36.2) SECONDS Sodium 138 (137-145) mmol/L Potassium 4.6 (3.4-5.1) mmol/L Chloride 107 (98-107) mmol/L Carbon Dioxide 21 L (22-32) mmol/L BUN 12 (7-17) mg/dL Creatinine 0.60 (0.52-1.04) mg/dL Estimated GFR > 60.0 (>60) mL/min BUN/Creatinine Ratio 20.0 (6-22) Glucose 169 H (80-110) mg/dL Calcium 8.8 (8.4-10.2) mg/dL Total Bilirubin 0.4 (0.2-1.3) mg/dL AST 17 (14-36) IU/L ALT 14 (<35) IU/L Alkaline Phosphatase 47 (38-126) U/L Total Creatine Kinase (30-135) U/L CK-MB (CK-2) (<2.37) ng/mL CK-MB (CK-2) Rel Index (1.5-5.0) % Troponin I (0.01-0.034) ng/mL Total Protein 6.2 L (6.3-8.2) g/dL Albumin 3.9 (3.5-5.0) g/dL Globulin 2.3 (1.7-4.1) g/dL Albumin/Globulin Ratio 1.7 (1.0-2.8) Lipase (23-300) U/L Procalcitonin (<0.5) ng/mL TSH 2.09 (0.47-4.68) uIU/mL Urine Color Urine Appearance Urine pH (4.5-8.0) Ur Specific [place] (1.000-1.035) Urine Protein (Negative) Urine Glucose (UA) (Negative) g/dL Urine Ketones (NEGATIVE) Urine Occult Blood (Negative) Urine Nitrate (Negative) Urine Bilirubin (NEGATIVE) Urine Urobilinogen (0.2) E.U./dL Ur Leukocyte Esterase (NEGATIVE) Urine RBC (0-5/HPF) Urine WBC (0-5/HPF) Ur Squamous Epith Cells (0-5/HPF) Urine Bacteria (None) Ur Culture Indicated? Salicylates (<20) mg/dL U Opiates 300ng/mL cut (Negative) Ur Oxycodone Screen (Negative) Urine Methadone Screen (Negative) Acetaminophen (10-30) ug/mL Ur Barbiturates Screen (Negative) U Tricyclic Antidepress (Negative) Ur Phencyclidine Scrn (Negative) Ur Amphetamines Screen (Negative) U Methamphetamines Scrn (Negative) Ur MDMA Scrn (Ecstasy) (Negative) U Benzodiazepines Scrn (Negative) Urine Cocaine Screen (Negative) U Marijuana (THC) Screen (Negative) Ethyl Alcohol ( - 10) mg/dL 12/08/19 12/08/19 12/08/19 Range/Units 10:21 12:02 12:02 WBC (4.5-11.0) X10^3/uL RBC (4.0-5.2) X10^6/uL Hgb (12.0-16.0) g/dL Hct (36-46) % MCV (80-100) fL MCH (26-34) PG MCHC (30-36) % RDW (11.6-14.8) % Plt Count (150-400) X10^3/uL Neut % (Auto) (50-75) % Lymph % (Auto) (25-40) % [place] % (Auto) (3-14) % Eos % (Auto) (2-4) % Baso % (Auto) (0-2) % Neut # (Auto) (7308-6732) /uL Lymph # (Auto) (2411-9568) /uL [place] # (Auto) (0-900) /uL Eos # (Auto) (0-450) /uL Baso # (Auto) (0-100) /uL PT (10.1-12.7) SECONDS INR (0.9-1.3) APTT (26.4-36.2) SECONDS Sodium (137-145) mmol/L Potassium (3.4-5.1) mmol/L Chloride (98-107) mmol/L Carbon Dioxide (22-32) mmol/L BUN (7-17) mg/dL Creatinine (0.52-1.04) mg/dL Estimated GFR (>60) mL/min BUN/Creatinine Ratio (6-22) Glucose (80-110) mg/dL Calcium (8.4-10.2) mg/dL Total Bilirubin (0.2-1.3) mg/dL AST (14-36) IU/L ALT (<35) IU/L Alkaline Phosphatase (38-126) U/L Total Creatine Kinase (30-135) U/L CK-MB (CK-2) (<2.37) ng/mL CK-MB (CK-2) Rel Index (1.5-5.0) % Troponin I (0.01-0.034) ng/mL Total Protein (6.3-8.2) g/dL Albumin (3.5-5.0) g/dL Globulin (1.7-4.1) g/dL Albumin/Globulin Ratio (1.0-2.8) Lipase 138 (23-300) U/L Procalcitonin (<0.5) ng/mL TSH (0.47-4.68) uIU/mL Urine Color Yellow Urine Appearance Clear Urine pH 5.5 (4.5-8.0) Ur Specific [place] 1.010 (1.000-1.035) Urine Protein Negative (Negative) Urine Glucose (UA) Negative (Negative) g/dL Urine Ketones Trace H (NEGATIVE) Urine Occult Blood Trace-intact (Negative) Urine Nitrate Negative (Negative) Urine Bilirubin Negative (NEGATIVE) Urine Urobilinogen 0.2 (0.2) E.U./dL Ur Leukocyte Esterase Negative (NEGATIVE) Urine RBC 0-1/hpf (0-5/HPF) Urine WBC None seen (0-5/HPF) Ur Squamous Epith Cells 1-5 /hpf (0-5/HPF) Urine Bacteria Occasional (0-1) (None) Ur Culture Indicated? Cult not indicated Salicylates < 1.0 (<20) mg/dL U Opiates 300ng/mL cut Positive H (Negative) Ur Oxycodone Screen Negative (Negative) Urine Methadone Screen Negative (Negative) Acetaminophen < 10 L (10-30) ug/mL Ur Barbiturates Screen Negative (Negative) U Tricyclic Antidepress Positive H (Negative) Ur Phencyclidine Scrn Negative (Negative) Ur Amphetamines Screen Negative (Negative) U Methamphetamines Scrn Negative (Negative) Ur MDMA Scrn (Ecstasy) Negative (Negative) U Benzodiazepines Scrn Negative (Negative) Urine Cocaine Screen Negative (Negative) U Marijuana (THC) Screen Positive H (Negative) Ethyl Alcohol < 10 ( - 10) mg/dL Imaging Data CT scan - head: Radiologist's Impression: PROCEDURE: CT HEAD/BRAIN WO CON INDICATIONS: hallucinations TECHNIQUE: Noncontrast 4.5 mm thick angled axial sections acquired from the foramen magnum to the vertex, with coronal and sagittal reformats. For radiation dose reduction, the following was used: automated exposure control, adjustment of mA and/or kV according to patient size. COMPARISON: [facility], CT, CT HEAD/BRAIN WO CON, 10/23/2019, 12:24. FINDINGS: Image quality: Excellent. CSF spaces: Basal cisterns are patent. No extra-axial fluid collections. Ventricles are normal in size and shape. Brain: No midline shift. No intracranial masses or hemorrhage. Land[place]-white matter interface is normal. Skull and face: Calvarium and visualized facial bones are intact, without suspicious lesions. Sinuses: Visualized sinuses and mastoids are clear. IMPRESSION: 1. No acute intracranial process. Dictated by: Sandra Mckeon M.D. on 12/08/2019 at 10:12 ECG Data Attestation: I personally reviewed and interpreted this ECG as follows: Prior ECG tracings: available for review Interpretation: Normal sinus rhythm rate 105 p.r. interval 136 QRS [address] elevation depression or T-wave inversions similar to previous EKG MDM Narrative Medical decision making narrative: PATIENT IS NOT SHOWING ANY SIGNS OF HALLUCINATION IN THE EMERGENCY DEPARTMENT. SHE HAS TRIED URINATING MULTIPLE TIMES WITHOUT SUCCESS. [place] CATHETER PLACED AND DRAINED OVER 400 CC. NO SIGN OF UTI. At this time concern of is not appreciated in the emergency department blood work is overall within normal limits. Discharge Plan Departure Patient Disposition: Home Clinical Impression: Hallucinations Discharge Date/Time: 12/08/19 12:59 Activity Restrictions/Additional Instructions: *You have been diagnosed with hallucinations *What to do: At this time blood work and head CT are overall reassuring no cause of hallucinations *Continue to take medications as directed *Follow up with your primary care provider in 2-3 days *Return to ER if you should have worsening hallucinations confusion or any new, worsening or concerning symptoms Prescriptions: No Action Homeopathic Substance (ALLERGY) 1 tab Sublingual DIRECTED Qty: 0 RF: 0 (DME) Glucose: Test Strips 0 .Route .MEDSUPPLY Qty: 100 RF: 3 metformin 1,000 mg tablet See Rx Instructions PO .COMPLEX Qty: 225 RF: 3 tramadol 50 mg tablet 50 mg PO TID PRN (Reason: pain) Qty: 60 RF: 1 gabapentin [Neurontin] 600 mg tablet 600 mg PO TID Qty: 120 RF: 3 cyclobenzaprine 10 mg tablet 10 mg PO TID PRN (Reason: Muscle Spasm) Qty: 60 RF: 0 hydrocodone-acetaminophen 7.5-325 mg tablet 1 - 2 tab PO Q4HP PRN (Reason: pain in back) Qty: 90 RF: 0 aspirin 81 mg tablet,delayed release (DR/EC) 81 mg PO DAILY RF: 0 desipramine 10 mg tablet 10 mg PO BEDTIME Qty: 30 RF: 3 duloxetine 30 mg capsule,delayed release(DR/EC) 30 mg PO DAILY Qty: 30 RF: 3 (DME) Disabled Parking Qty: 1 RF: 0 zolpidem 10 mg tablet 10 mg PO BEDTIME RF: 0 albuterol sulfate [Proventil HFA] 90 mcg/actuation HFA aerosol inhaler 1 puff IH PRN PRN (Reason: Shortness Of Breath) RF: 0 glipizide 5 mg tablet 5 mg PO QAM PRN (Reason: If I need it for my diabetes) RF: 0 atorvastatin 40 mg tablet 40 mg PO QPM RF: 0 atenolol 25 mg tablet 25 mg PO DAILY RF: 0 estradiol 1 mg tablet 1 mg PO DAILY RF: 0 tamsulosin [Flomax] 0.4 mg capsule 0.4 mg PO DAILY RF: 0 diclofenac sodium 50 mg tablet,delayed release (DR/EC) 50 mg PO BID PRN (Reason: pain) RF: 0 medroxyprogesterone 10 mg tablet 10 mg PO DAILY RF: 0 lisinopril 10 mg tablet 10 mg PO DAILY RF: 0 melatonin 5 mg Tablet 5 mg PO BEDTIME PRN (Reason: Insomnia) RF: 0 fluticasone propionate 50 mcg/actuation spray,suspension 2 spray Intranasal PRN PRN (Reason: Allergy Symptoms) RF: 0 Referrals: Jose Brito MD [Primary Care Provider] -
[2019-12-08 09:30] VITALS: BP 151/71; PULSE 105; RESP 12; O2SAT 99
[2019-12-08] MEDS: SODIUM CHLORIDE 0.9% 1,000 ML 1000 ML IV (09:35)
--- NOTE | 2019-12-08 09:42 | DI.CT.S_ITS ---
PROCEDURE: CT HEAD/BRAIN WO CON INDICATIONS: hallucinations TECHNIQUE: Noncontrast 4.5 mm thick angled axial sections acquired from the foramen magnum to the vertex, with coronal and sagittal reformats. For radiation dose reduction, the following was used: automated exposure control, adjustment of mA and/or kV according to patient size. COMPARISON: [facility], CT, CT HEAD/BRAIN WO CON, 10/23/2019, 12:24. FINDINGS: Image quality: Excellent. CSF spaces: Basal cisterns are patent. No extra-axial fluid collections. Ventricles are normal in size and shape. Brain: No midline shift. No intracranial masses or hemorrhage. Land[place]-white matter interface is normal. Skull and face: Calvarium and visualized facial bones are intact, without suspicious lesions. Sinuses: Visualized sinuses and mastoids are clear. IMPRESSION: 1. No acute intracranial process. Dictated by: Sandra Mckeon M.D. on 12/08/2019 at 10:12 Approved by: Sandra Mckeon M.D. on 12/08/2019 at 10:12
[2019-12-08 10:32] VITALS: BP 155/68; PULSE 89; RESP 25; O2SAT 97
[2019-12-08 10:37] LABS: Add Manual Diff / Slide Review NO; Basophils Absolute Auto 100 /uL (0-100); Basophils Percent Auto 0.6 % (0-2); Eosinophils Absolute Auto 200 /uL (0-450); Hematocrit 32.5 % (36-46); Lymphocytes Absolute Auto 3400 /uL (1100-4500); Lymphocytes Percent Auto 31.4 % (25-40); Mean Corpuscular HGB Conc 33.9 % (30-36); Mean Corpuscular Hemoglobin 29.7 PG (26-34); Mean Corpuscular Volume 87.8 fL (80-100); Monocytes Absolute Auto 1000 /uL (0-900); Monocytes Percent Auto 9.3 % (3-14); Neutrophils Absolute Auto 6200 /uL (1500-7000); Neutrophils Percent Auto 56.7 % (50-75); Platelet Count 236 X10^3/uL (150-400); Red Blood Cell Count 3.71 X10^6/uL (4.0-5.2); Red Cell Distribution Width 13.4 % (11.6-14.8)
[2019-12-08 10:48] LABS: Prothrombin Time 11.6 SECONDS (10.1-12.7)
[2019-12-08 10:50] LABS: PTT Partial Thromboplastin Tim 23 SECONDS (26.4-36.2)
[2019-12-08 10:54] LABS: Acetaminophen < 10 ug/mL (10-30); Ethanol (ETOH) < 10 mg/dL; Lipase 138 U/L (23-300); Salicylate < 1.0 mg/dL (<20)
[2019-12-08 10:55] LABS: Alanine Aminotransferase 14 IU/L (<35); Albumin 3.9 g/dL (3.5-5.0); Albumin Globulin Ratio 1.7 (1.0-2.8); Alkaline Phosphatase 47 U/L (38-126); Aspartate Aminotransferase 17 IU/L (14-36); Bilirubin Total 0.4 mg/dL (0.2-1.3); Blood Urea Nitrogen 12 mg/dL (7-17); Calcium 8.8 mg/dL (8.4-10.2); Carbon Dioxide 21 mmol/L (22-32); Chloride 107 mmol/L (98-107); Creatine Kinase 126 U/L (30-135); Estimated Glomerular Filt Rate > 60.0 mL/min (>60); Globulin 2.3 g/dL (1.7-4.1); Glucose 169 mg/dL (80-110); HEMOLYSIS < 15 (0-50); Potassium 4.6 mmol/L (3.4-5.1); Sodium 138 mmol/L (137-145); Total Protein 6.2 g/dL (6.3-8.2)
[2019-12-08 11:06] LABS: Procalcitonin < 0.05 ng/mL (<0.5)
[2019-12-08 11:07] LABS: Troponin I < 0.012 ng/mL (0.01-0.034)
[2019-12-08 11:08] VITALS: BP 154/72; PULSE 101; RESP 25; O2SAT 100
[2019-12-08 11:10] LABS: Creatine Kinase MB 1.24 ng/mL (<2.37)
[2019-12-08 11:26] LABS: Thyroid Stimulating Hormone 2.09 uIU/mL (0.47-4.68)
--- NOTE | 2019-12-08 12:06 | PC.NURSE ---
Catheter placed for urinary retention. Pt had @450 in bladder by scan. Went to bathroom to void and stated that she was unable to. Catheter placed. 425 cc out.
[2019-12-08 12:08] LABS: WBC Urine None Seen (0-5/HPF)
[2019-12-08 12:17] LABS: Appearance Urine UA CLEAR; Bilirubin Urine UA NEGATIVE (NEGATIVE); Color Urine UA YELLOW; Glucose Urine UA NEGATIVE (Negative); Ketones Urine UA TRACE (NEGATIVE); Leukocyte Esterase Urine UA NEGATIVE (NEGATIVE); Nitrite Urine UA NEGATIVE (Negative); Occult Blood Urine UA TRACE-INTACT (Negative); Protein Urine UA NEGATIVE (Negative); Urobilinogen Urine UA 0.2 E.U./dL (0.2)
[2019-12-08 12:19] LABS: pH Urine UA 5.5 (4.5-8.0)
[2019-12-08 12:20] LABS: UR Morphine/Opiate cutoff 300 Positive (Negative); Ur Creatinine Normal (Normal); Ur Specific Gravity Normal (Normal); Urine Amphetamines Negative (Negative); Urine Barbiturates Negative (Negative); Urine Benzodiazepines Negative (Negative); Urine Cocaine Negative (Negative); Urine MDMA Negative (Negative); Urine Methadone Negative (Negative); Urine Methamphetamines Negative (Negative); Urine Oxycodone Negative (Negative); Urine Phencyclidine Negative (Negative); Urine Tetrahydrocannabinol Positive (Negative); Urine Tricyclic Antidepressant Positive (Negative); Urine pH Normal (Normal)
[2019-12-08 12:27] LABS: Bacteria Urine Occasional (0-1); RBC Urine 0-1/HPF (0-5/HPF); Squamous Epithelial Cell Urine 1-5 /HPF (0-5/HPF)
[2019-12-08 12:28] LABS: Culture Indicated Urine Cult Not Indicated
[2019-12-08 12:41] VITALS: BP 154/72; PULSE 104; RESP 18; O2SAT 99
== END 2019-12-08 12:59 | disposition home or self-care (01) ==
PROVIDERS: Emergency Provider Emergency Medicine; Family Provider Internal Medicine; PCP Internal Medicine
DX: R44.3 Hallucinations, unspecified (principal); R41.82 Altered mental status, unspecified; R33.9 Retention of urine, unspecified
CPT/HCPCS: 36415; 51701; 70450; 80053; 80305; 80320; 80329; 81001; 82550; 82553; 83690; 84145; 84443; 84484; 85025; 85610; 85730; 87040; 93005; 93010; 96360; 99285; G0480

== ENCOUNTER → 2019-12-15 09:20 | Outpatient (CLI) | payer BC, SELFPAY ==
--- NOTE | 2019-12-15 09:23 | DI.RAD.S_ITS ---
PROCEDURE: XR HIP W PEL IF DONE LT MIN 4V INDICATIONS: left groin pain TECHNIQUE: AP pelvis with lateral view(s) of the left and right hip(s). COMPARISON: [facility], , HIP 2V LEFT, 01/03/2012, 8:17. FINDINGS: Bones: No fractures or dislocations. Pelvic ring appears intact. No suspicious bony lesions. Mild bilateral hip joint space narrowing. Sacroiliac joints demonstrate mild sclerosis bilaterally . The appearance is unchanged bilaterally since the prior study. Soft tissues: The visualized bowel gas pattern is normal. No suspicious soft tissue calcifications. IMPRESSION: Mild bilaterally symmetric hip joint degeneration, grossly unchanged on the left since 01/03/12 Dictated by: King Murillo M.D. on 12/15/2019 at 14:54 Approved by: King Murillo M.D. on 12/15/2019 at 14:56
[2019-12-15 10:25] LABS: Hemoglobin A1C% w Est Avg Glu 7.7 % (4.0-6.0)
[2019-12-15 11:16] LABS: Alanine Aminotransferase 14 IU/L (<35); Albumin 4.3 g/dL (3.5-5.0); Albumin Globulin Ratio 1.7 (1.0-2.8); Alkaline Phosphatase 47 U/L (38-126); Aspartate Aminotransferase 19 IU/L (14-36); BUN Creatinine Ratio 26.3 (6-22); Bilirubin Total 0.4 mg/dL (0.2-1.3); Blood Urea Nitrogen 21 mg/dL (7-17); Carbon Dioxide 24 mmol/L (22-32); Chloride 100 mmol/L (98-107); Cholesterol 129 mg/dL (140-199); Estimated Glomerular Filt Rate > 60.0 mL/min (>60); Globulin 2.6 g/dL (1.7-4.1); Glucose 167 mg/dL (80-110); HDL Cholesterol 49 mg/dL (40-60); HEMOLYSIS 21 (0-50); LDL Cholesterol Calculated 42 mg/dL (<100); Potassium 5.3 mmol/L (3.4-5.1); Sodium 136 mmol/L (137-145); Total Protein 6.9 g/dL (6.3-8.2); Triglycerides 190 mg/dL (35-150)
== END ==
PROVIDERS: Family Provider Registered Nurse; PCP Internal Medicine; Visit Provider Internal Medicine
DX: G89.29 Other chronic pain (principal); R10.32 Left lower quadrant pain; E11.9 Type 2 diabetes mellitus without complications; E78.2 Mixed hyperlipidemia; I25.10 Atherosclerotic heart disease of native coronary artery without angina pectoris
CPT/HCPCS: 36415; 73522; 80053; 80061; 83036

== ENCOUNTER 2020-01-28 09:00 | Outpatient (RCR) | payer BC, SELFPAY ==
--- NOTE | 2020-01-07 16:00 | PT.OPPOC ---
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 Family Provider Referring Provider Specialty: Pain Management Address: Formerly named [facility], [place], [address] Email: [email or web address] Plan Of Care PT-OP-T Assessment and Plan Start: 01/12/20 08:16 Freq: Status: Active Protocol: Document 01/07/20 14:30 HH (Rec: 01/12/20 08:45 [email or web address]) Physical Therapy Assessment Rehab Potential Rehabilitation Potential Good Evaluation Complexity Number of Personal Factors/Comorbidities 3 or More Number of Body Systems Impaired 4 or More Clinical Presentation at Evaluation Evolving Impairments Impairments Activity Tolerance,Balance, Functional Activities, Functional Mobility,Gait,Pain, Posture,ROM,Sensation,Soft Tissue Mobility,Strength,Tone, Transfers Other Concerns Fall Risk high Barriers to Rehabilitation fibromyalgia, chronic heart disease, DMI, curretnly taking multiple pain medication Goals LEFS Impairment pt scores 8/80 for LEFS Short Term Goal (STG) Pt will score 20/80 for LEFS STG Duration 6 weeks Clinical Trial Head Goal (LTG) Pt will score >30 for LEFS to improve her quality of life with less pain for functional activities. LTG Duration 12 weeks sleep Impairment unable to sleep on her L side Short Term Goal (STG) Pt will be able to sleep on her L side to improve her quality of sleep STG Duration 6 weeks gait Impairment pt is using 4WW d/t falls and leg pain Short Term Goal (STG) pt will not a have a fall within 2 weeks and be able to use spC at home to amb STG Duration 6 weeks Group Home Goal (LTG) pt will not have a fall > 2 months and be able to use SPC/ no AD for community mobility to improve independence level LTG Duration 12 weeks pain Impairment pt has severe pain at all times 7/10 Short Term Goal (STG) pt will not have LBP/ shooting L leg pain more than 6/10 STG Duration 6 weeks Group Home Goal (LTG) pt will not ahve LBP/shooting L leg pain more than 4/10 so she could increase her ambulation disatance and sitting tolerance. LTG Duration 12 weeks Assessment Summary Assessment This eval is a high complexity d/t pt's severe chronic pain, very limited mobility and her extensive past medical history. Per EMR from pt's PCP visit which stated that pt has difficulty iwth her chronic pain management and currently taking multiple pain medications. Referring physician did provide pain education and reminders on side effects of pain meds. Upon assessment, pt was very talkative, espeically conversation about her medical history and pain. Pt presents lumbar radiculopathy with significant pain sensitivity at L3-L5 dermatome on LLE, along with noticeable weakness with L2-L5 myotomes. Pt's pain also significantly reproduced with slump test and SLR. Pt's pain seemed to improve with lumbar flexion and hip distraction. Will cont assess during next visit. But since pt's has a complicated medical histroy which possibly lengther her need of skilled therapy to address aforementioned impairments. Physical Therapy Plan Frequency and Duration Frequency of Treatment 2x/Week Duration of Treatment 12 weeks Plan of Care Start Date 01/07/20 Plan of Care End Date 04/06/20 Therapeutic Interventions Therapeutic Interventions Aquatic Therapy,Balance Training,Gait Training,Home Exercise Program,Joint Mobilizations,Manual Therapy, Neuromuscular Re-education, Patient/Caregiver Education, Self-Care/Home Management,Soft Tissue Mobilization,Taping, Therapeutic Activities, Therapeutic Exercises Modalities Cold Pack/Ice Massage,Electric Stimulation,Hot Packs, Traction- Mechanical Next Visit Focus/Plan Next Note Type Treatment Note Next Visit Plan reassess lumbar flexion based movements check tolerance for lumbar extension nerve glide attempt lumbar traction hip distraction manual therapy for parapsinals and gluteals Plan of Care Dates Plan of Care Start Date 01/07/20 Plan of Care End Date 04/06/20 Electronically Signed by: Abram Edmond PT 01/12/20 [id number] Please Sign and Return: I have reviewed this Plan of Care and certify that the skilled therapy services above are required to meet the patient?s needs. Physician Signature Date Printed Name and Credentials Clinical Instructor Signature Printed Name and Credentials
--- NOTE | 2020-01-07 16:00 | PT.OIE ---
Current Diagnoses Spinal stenosis, lumbosacral region (01/07/20) Radiculopathy, lumbosacral region (01/07/20) Past Medical History (Last Updated 12/28/19 @ 10:27 by Jose Brito MD) Back pain (Chronic 03/19/14) CAD (coronary atherosclerotic disease) (Chronic ~1998) Diabetic peripheral neuropathy (Chronic 11/10/15) Fibromyalgia (Chronic 03/12/17) Foraminal stenosis of lumbosacral region (Chronic) GERD (gastroesophageal reflux disease) (Chronic) Herniated disc (Acute) Hypertension (Chronic) Mixed hyperlipidemia (Chronic) Myocardial infarction (Acute ~1998) Recurrent major depressive disorder, in full remission (Chronic) Type 2 diabetes mellitus with hyperglycemia (Chronic) Type 2 diabetes mellitus without complication (Chronic) Unspecified asthma (Chronic) Past Surgical History (Last Reviewed 12/03/19 @ 19:08 by PEPE Coto) 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) Status post appendectomy Surgical procedure planned (Resolved) Visit Care Team Role Provider Type Jose Brito MD Primary Care Provider Physician Specialty: Internal Medicine Address: [address] [place] [address], [address], [facility] Email: [email or web address] PEPE Coto Attending Provider Advanced Grand Scribe Family Provider Referring Provider Specialty: Pain Management Address: [address] [place] [address], [facility] Email: [email or web address] Physical Therapy Initial Evaluation PT-OP-A Visit Information Start: 01/12/20 08:16 Freq: Status: Active Protocol: Document 01/07/20 14:30 HH (Rec: 01/12/20 08:45 HH [email or web address]) Out-Patient Physical Therapy Visit Information Visit Information Visit Type Initial Evaluation Visit Start Time 14:30 Visit Stop Time 15:15 Total Visit Minutes 45 Visit Number 12/17 Number of PROCESSING REP Visits 0 Evaluation Information Evaluation Date 01/07/20 Precautions Precautions PAD with claudication bruise easily fibromyalgia high fall risk chronic CAD [place] (1998) PT-OP-B Current Condition Start: 01/12/20 08:16 Freq: Status: Active Protocol: Document 01/07/20 14:30 (Rec: 01/12/20 08:45 [email or web address]) Current Condition History of Current Condition Onset Date > 2mons for acute symptoms, chronic LBP >10 years Current Complaints Chronic LBP, new neurological symptoms, weakness, falls History of Current Condition Pt is a 64yo female with chronic LBP >10 years and new onset of neurological symptoms since October,. Pt recently started to have sharp groin pain that radiates into her anterior thigh that responds to hydrocodone; parasthesias and pain that radiate from her anterior knee and along her tibia that don' t seem to respond to medication. She is also having increasing difficulty with ambulation due to gait instability and pain. Pt has been using 4WW since then but her leg tends to give out occasionally. Pt had MRI 2018 showed Degenerative disc bulge and bilateral facet arthrosis at L2-3 through L5- S1 levels causing mild to moderate central canal stenosis and bilateral neuroforaminal narrowing as described above more prominent at L2-3 and L3-4 levels. Pt's symptoms tend to get better with slouching, sitting on a recliner but worse with standing , sitting or with pressure to the back/ hip area . She had a previous surgical consultation with Dr. Lyles who did not consider her to be a surgical candidate. Pt is currently taking diclofenac 50 mg p.o. b.i.d., cyclobenzaprine 5 mg p.o. as needed that can be increased to 10 mg if necessary, gabapentin 600 mg p.o. t.i.d., and hydrocodone acetaminophen 7.5 -325 mg occasionally. Prior Treatments and Tests MRI 04/08/19 reveal DDD, bilateral facet arthropathy at L2 through S1 with bilateral foraminal narrowing most prominent at L2-3 and L3-4 with corresponding left L3 and bilateral L4 nerve root compression. Pt had 2 hospital visits recently d/t back pain , altered mental status. Future Testing and Treatments Planned Pt got referral for EMG nerve conduction study of her L leg Treatment Goals Patient/Caregiver Goals 1. to reduce her pain during sitting/ standing/ walking 2. to be able to walk without AD again 3. able to sleep on her L side Prior Functional Status Baseline Function- ADL's Independent Baseline Function- Mobility Independent Current Functional Impairments (Reported) Functional Limitations- Mobility/Gait use 4WW for most of the mobility d/t severe pain and fall risks Functional Limitations- Other unable to sleep on her L side PT-OP-C Subjective Start: 01/12/20 08:16 Freq: Status: Active Protocol: Document 01/07/20 14:30 HH (Rec: 01/12/20 08:45 HH [email or web address]) OP-PT Subjective Patient Comments Patient Comments I just have a lot of trouble getting around now. Patient Questionnaires Lower Extremity Functional Scale LEFS Score 8 LEFS Impairment 80 to 99% Impaired (Score 1-16 ) Oswestry Low Back Index Oswestry Score 36 Oswestry Impairment 20 to 39% Impaired (Score 20- 39) Other Questionnaire Name and Score Oswestry LBP questionnaire at her MD visit. OP-PT Pain Assessment Location L thigh Pain Location Details L anterior region Intensity 7 Scale Used Numeric (1 - 10) Description Acute,Radiating,Shooting Frequency Constant Pain Aggravating Factors Position,Changing Position, Sitting,Walking Pain Alleviating Factors Inactivity PT-OP-D Balance Start: 01/12/20 08:16 Freq: Status: Active Protocol: Document 01/07/20 14:30 HH (Rec: 01/12/20 08:45 HH [email or web address]) Balance Tests Single Limb Standing Single Limb- Right 3 Single Limb- Left 0 PT-OP-F Manual Assessment Start: 01/12/20 08:16 Freq: Status: Active Protocol: Document 01/07/20 14:30 HH (Rec: 01/12/20 08:45 HH [email or web address]) Manual Assessments Soft Tissue Assessment Soft Tissue Mobility Assessment sensitive to light touch at anerior knee and trent region tenderness to touch pressure and lumbar paraspinals bilaterally and hip ext/ abd PT-OP-G Mobility & Gait Start: 01/12/20 08:16 Freq: Status: Active Protocol: Document 01/07/20 14:30 HH (Rec: 01/12/20 08:45 HH [email or web address]) OP Gait Assessment Assistive Devices Assistive Device Straight Cane Orthotic/Prosthetic Devices or Brace: No Gait Deviations General Gait Pattern Antalgic,Decreased Stride Length,Decreased Feet Clearance,Flexed Trunk,Lateral Trunk Lean Factors Limiting Gait Function Factors Limiting Gait Function Decreased Activity Tolerance, Decreased Sensation,Decreased Strength,Limited Range of Motion,Pain,Poor Balance,Poor Safety Awareness Comments Gait Comments pt shows significant lateral trunk lean towards R side with reduced WB on LE. PT-OP-H Neuro Start: 01/12/20 08:16 Freq: Status: Active Protocol: Document 01/07/20 14:30 HH (Rec: 01/12/20 08:45 HH [email or web address]) Deep Tendon Reflex & Clonus Assessment Deep Tendon Reflex Bilateral Achilles Deep Tendon Reflex 2+ Normal Bilateral Patellar Deep Tendon Reflex 2+ Normal PT-OP-J Posture/Palpation/Skin Start: 01/12/20 08:16 Freq: Status: Active Protocol: Document 01/07/20 14:30 HH (Rec: 01/12/20 08:45 HH [email or web address]) Posture Evaluation Comments Posture Comments Lateral trunk lean to R in standing PT-OP-K Range of Motion Start: 01/12/20 08:16 Freq: Status: Active Protocol: Document 01/07/20 14:30 HH (Rec: 01/12/20 08:45 HH [email or web address]) Lumbar Spine Range of Motion Lumbar Spine Active Percentage Testing Position Standing Flexion 40 Extension 40 ROM Limitations Soft Tissue Tightness,Muscle Weakness,Pain Comments toe touch test 8 inches away from floor and pt is unable to maintain balance PT-OP-L Special Tests Start: 01/12/20 08:16 Freq: Status: Active Protocol: Document 01/07/20 14:30 HH (Rec: 01/12/20 08:45 HH [email or web address]) Special Tests Lumbar Spine Special Tests knee to chest Test Results -ve Comments denies discomfort/ radiating pain Manual Traction Test Results +Ve L Comments L hip distraction reduced pt's symptoms Straight Leg Raise Test Results +VE L Comments 60 degrees with pain and numbness at L ant knee Slump Test Results +ve L Comments pain and numbness reproduced at L anterior knee with DF and knee extended PT-OP-M Strength Start: 01/12/20 08:16 Freq: Status: Active Protocol: Document 01/07/20 14:30 HH (Rec: 01/12/20 08:45 HH [email or web address]) Hip Strength Hip Manual Muscle Testing Left Flexion (L2) 4- Good- Extension (S1) 4- Good- Abduction 3+ Fair+ Adduction 4- Good- Comments pain with resistedhip motion. Right Flexion (L2) 4+ Good+ Extension (S1) 4+ Good+ Abduction 4 Good Adduction 4+ Good+ Knee Strength Knee Manual Muscle Testing Right Flexion (S2) 4 Good Extension (L3) 4 Good Left Flexion (S2) 4- Good- Extension (L3) 4- Good- Ankle/Foot Strength Ankle and Foot Manual Muscle Testing Right Dorsiflexion (L4) 4+ Good+ Plantarflexion (S1) 4+ Good+ Left Dorsiflexion (L4) 4 Good Plantarflexion (S1) 4 Good PT-OP-T Assessment and Plan Start: 01/12/20 08:16 Freq: Status: Active Protocol: Document 01/07/20 14:30 HH (Rec: 01/12/20 08:45 HH [email or web address]) Physical Therapy Assessment Rehab Potential Rehabilitation Potential Good Evaluation Complexity Number of Personal Factors/Comorbidities 3 or More Number of Body Systems Impaired 4 or More Clinical Presentation at Evaluation Evolving Impairments Impairments Activity Tolerance,Balance, Functional Activities, Functional Mobility,Gait,Pain, Posture,ROM,Sensation,Soft Tissue Mobility,Strength,Tone, Transfers Other Concerns Fall Risk high Barriers to Rehabilitation fibromyalgia, chronic heart disease, DMI, curretnly taking multiple pain medication Goals LEFS Impairment pt scores 8/80 for LEFS Short Term Goal (STG) Pt will score 20/80 for LEFS STG Duration 6 weeks In Service Coordinator Goal (LTG) Pt will score >30 for LEFS to improve her quality of life with less pain for functional activities. LTG Duration 12 weeks sleep Impairment unable to sleep on her L side Short Term Goal (STG) Pt will be able to sleep on her L side to improve her quality of sleep STG Duration 6 weeks gait Impairment pt is using 4WW d/t falls and leg pain Short Term Goal (STG) pt will not a have a fall within 2 weeks and be able to use spC at home to amb STG Duration 6 weeks Nursing Home Goal (LTG) pt will not have a fall > 2 months and be able to use SPC/ no AD for community mobility to improve independence level LTG Duration 12 weeks pain Impairment pt has severe pain at all times 7/10 Short Term Goal (STG) pt will not have LBP/ shooting L leg pain more than 6/10 STG Duration 6 weeks In Service Coordinator Goal (LTG) pt will not ahve LBP/shooting L leg pain more than 4/10 so she could increase her ambulation disatance and sitting tolerance. LTG Duration 12 weeks Assessment Summary Assessment This eval is a high complexity d/t pt's severe chronic pain, very limited mobility and her extensive past medical history. Per EMR from pt's PCP visit which stated that pt has difficulty iwth her chronic pain management and currently taking multiple pain medications. Referring physician did provide pain education and reminders on side effects of pain meds. Upon assessment, pt was very talkative, espeically conversation about her medical history and pain. Pt presents lumbar radiculopathy with significant pain sensitivity at L3-L5 dermatome on LLE, along with noticeable weakness with L2-L5 myotomes. Pt's pain also significantly reproduced with slump test and SLR. Pt's pain seemed to improve with lumbar flexion and hip distraction. Will cont assess during next visit. But since pt's has a complicated medical histroy which possibly lengther her need of skilled therapy to address aforementioned impairments. Physical Therapy Plan Frequency and Duration Frequency of Treatment 2x/Week Duration of Treatment 12 weeks Plan of Care Start Date 01/07/20 Plan of Care End Date 04/06/20 Therapeutic Interventions Therapeutic Interventions Aquatic Therapy,Balance Training,Gait Training,Home Exercise Program,Joint Mobilizations,Manual Therapy, Neuromuscular Re-education, Patient/Caregiver Education, Self-Care/Home Management,Soft Tissue Mobilization,Taping, Therapeutic Activities, Therapeutic Exercises Modalities Cold Pack/Ice Massage,Electric Stimulation,Hot Packs, Traction- Mechanical Next Visit Focus/Plan Next Note Type Treatment Note Next Visit Plan reassess lumbar flexion based movements check tolerance for lumbar extension nerve glide attempt lumbar traction hip distraction manual therapy for parapsinals and gluteals
--- NOTE | 2020-01-12 18:31 | PT.OTN ---
Current Diagnoses Spinal stenosis, lumbosacral region (01/12/20) Radiculopathy, lumbosacral region (01/12/20) Physical Therapy Treatment Note PT-OP-A Visit Information Start: 01/12/20 08:16 Freq: Status: Active Protocol: Document 01/12/20 13:51 HH (Rec: 01/12/20 18:31 [id number]) Out-Patient Physical Therapy Visit Information Visit Information Visit Type Treatment Note Visit Start Time 13:51 Visit Stop Time 14:32 Total Visit Minutes 41 Visit Number Number of [employer] Visits 0 PT-OP-B Current Condition Start: 01/12/20 08:16 Freq: Status: Active Protocol: Document 01/07/20 14:30 HH (Rec: 01/12/20 08:45 HH [email or web address]) Current Condition History of Current Condition Onset Date > 2mons for acute symptoms, chronic LBP >10 years Current Complaints Chronic LBP, new neurological symptoms, weakness, falls History of Current Condition Pt is a 64yo female with chronic LBP >10 years and new onset of neurological symptoms since October,. Pt recently started to have sharp groin pain that radiates into her anterior thigh that responds to hydrocodone; parasthesias and pain that radiate from her anterior knee and along her tibia that don' t seem to respond to medication. She is also having increasing difficulty with ambulation due to gait instability and pain. Pt has been using 4WW since then but her leg tends to give out occasionally. Pt had MRI 2018 showed Degenerative disc bulge and bilateral facet arthrosis at L2-3 through L5- S1 levels causing mild to moderate central canal stenosis and bilateral neuroforaminal narrowing as described above more prominent at L2-3 and L3-4 levels. Pt's symptoms tend to get better with slouching, sitting on a recliner but worse with standing , sitting or with pressure to the back/ hip area . She had a previous surgical consultation with Dr. Lyles who did not consider her to be a surgical candidate. Pt is currently taking diclofenac 50 mg p.o. b.i.d., cyclobenzaprine 5 mg p.o. as needed that can be increased to 10 mg if necessary, gabapentin 600 mg p.o. t.i.d., and hydrocodone acetaminophen 7.5 -325 mg occasionally. Prior Treatments and Tests MRI 04/08/19 reveal DDD, bilateral facet arthropathy at L2 through S1 with bilateral foraminal narrowing most prominent at L2-3 and L3-4 with corresponding left L3 and bilateral L4 nerve root compression. Pt had 2 hospital visits recently d/t back pain , altered mental status. Future Testing and Treatments Planned Pt got referral for EMG nerve conduction study of her L leg Treatment Goals Patient/Caregiver Goals 1. to reduce her pain during sitting/ standing/ walking 2. to be able to walk without AD again 3. able to sleep on her L side Prior Functional Status Baseline Function- ADL's Independent Baseline Function- Mobility Independent Current Functional Impairments (Reported) Functional Limitations- Mobility/Gait use 4WW for most of the mobility d/t severe pain and fall risks Functional Limitations- Other unable to sleep on her L side PT-OP-C Subjective Start: 01/12/20 08:16 Freq: Status: Active Protocol: Document 01/12/20 13:51 HH (Rec: 01/12/20 18:31 HH [id number]) OP-PT Subjective Patient Comments Patient Comments I feel around the same and there's burning pain on L knee . I went to see chiropractor yesterday and i did feel better for a little bit but the effect went away. I placed an insole on R shoe yesterday and i feel like im walking better. PT-OP-D Balance Start: 01/12/20 08:16 Freq: Status: Active Protocol: Document 01/07/20 14:30 HH (Rec: 01/12/20 08:45 HH [email or web address]) Balance Tests Single Limb Standing Single Limb- Right 3 Single Limb- Left 0 PT-OP-F Manual Assessment Start: 01/12/20 08:16 Freq: Status: Active Protocol: Document 01/07/20 14:30 HH (Rec: 01/12/20 08:45 HH [email or web address]) Manual Assessments Soft Tissue Assessment Soft Tissue Mobility Assessment sensitive to light touch at anerior knee and trent region tenderness to touch pressure and lumbar paraspinals bilaterally and hip ext/ abd PT-OP-G Mobility & Gait Start: 01/12/20 08:16 Freq: Status: Active Protocol: Document 01/07/20 14:30 HH (Rec: 01/12/20 08:45 HH [email or web address]) OP Gait Assessment Assistive Devices Assistive Device Straight Cane Orthotic/Prosthetic Devices or Brace: No Gait Deviations General Gait Pattern Antalgic,Decreased Stride Length,Decreased Feet Clearance,Flexed Trunk,Lateral Trunk Lean Factors Limiting Gait Function Factors Limiting Gait Function Decreased Activity Tolerance, Decreased Sensation,Decreased Strength,Limited Range of Motion,Pain,Poor Balance,Poor Safety Awareness Comments Gait Comments pt shows significant lateral trunk lean towards R side with reduced WB on LE. PT-OP-H Neuro Start: 01/12/20 08:16 Freq: Status: Active Protocol: Document 01/07/20 14:30 HH (Rec: 01/12/20 08:45 HH [email or web address]) Deep Tendon Reflex & Clonus Assessment Deep Tendon Reflex Bilateral Achilles Deep Tendon Reflex 2+ Normal Bilateral Patellar Deep Tendon Reflex 2+ Normal PT-OP-J Posture/Palpation/Skin Start: 01/12/20 08:16 Freq: Status: Active Protocol: Document 01/07/20 14:30 HH (Rec: 01/12/20 08:45 [email or web address]) Posture Evaluation Comments Posture Comments Lateral trunk lean to R in standing PT-OP-K Range of Motion Start: 01/12/20 08:16 Freq: Status: Active Protocol: Document 01/07/20 14:30 HH (Rec: 01/12/20 08:45 HH [email or web address]) Lumbar Spine Range of Motion Lumbar Spine Active Percentage Testing Position Standing Flexion 40 Extension 40 ROM Limitations Soft Tissue Tightness,Muscle Weakness,Pain Comments toe touch test 8 inches away from floor and pt is unable to maintain balance PT-OP-L Special Tests Start: 01/12/20 08:16 Freq: Status: Active Protocol: Document 01/07/20 14:30 HH (Rec: 01/12/20 08:45 HH [email or web address]) Special Tests Lumbar Spine Special Tests knee to chest Test Results -ve Comments denies discomfort/ radiating pain Manual Traction Test Results +Ve L Comments L hip distraction reduced pt's symptoms Straight Leg Raise Test Results +VE L Comments 60 degrees with pain and numbness at L ant knee Slump Test Results +ve L Comments pain and numbness reproduced at L anterior knee with DF and knee extended PT-OP-M Strength Start: 01/12/20 08:16 Freq: Status: Active Protocol: Document 01/07/20 14:30 HH (Rec: 01/12/20 08:45 HH [email or web address]) Hip Strength Hip Manual Muscle Testing Left Flexion (L2) 4- Good- Extension (S1) 4- Good- Abduction 3+ Fair+ Adduction 4- Good- Comments pain with resistedhip motion. Right Flexion (L2) 4+ Good+ Extension (S1) 4+ Good+ Abduction 4 Good Adduction 4+ Good+ Knee Strength Knee Manual Muscle Testing Right Flexion (S2) 4 Good Extension (L3) 4 Good Left Flexion (S2) 4- Good- Extension (L3) 4- Good- Ankle/Foot Strength Ankle and Foot Manual Muscle Testing Right Dorsiflexion (L4) 4+ Good+ Plantarflexion (S1) 4+ Good+ Left Dorsiflexion (L4) 4 Good Plantarflexion (S1) 4 Good PT-OP-Q Treatments Start: 01/12/20 08:16 Freq: Status: Active Protocol: Document 01/12/20 13:51 (Rec: 01/12/20 18:31 [id number]) Therapeutic Exercises Supine Exercises sciatic nerve glide Side bilateral Reps/Minutes 6x 2 LTR Side bilateral Reps/Minutes 6x2 bridging with pillow squeeze Supine Exercise Name mid range Side bilateral Reps/Minutes 6 x 2 knee to chest Supine Exercise Name encourage lumbar flexion Side bilateral Reps/Minutes 30 sec x 4 Manual Therapy Treatment Soft Tissue Mobilization L hip abductors Body Location L glute Mobilization Type Sustained Pressure,Trigger Point Release Intensity/Depth Moderate Body Position Sidelying Comments c/o tenderness at proximal insertion Joint Mobilizations L hip Direction inferior Grade III Body Position Supine Reps/Duration 5 sec x 8 Comments pt reports improved symptoms Manual Traction lumbar traction Body Position Hooklying Reps/Duration 10 sec x 8 Comments pt reports improved symptoms. Nerve Glides sciatic nerve glide Nerve supine SLR active and passive Body Position Supine Reps/Duration 2 mins Comments opposite leg straight PT-OP-R Modalities Start: 01/12/20 08:16 Freq: Status: Active Protocol: Document 01/12/20 13:51 (Rec: 01/12/20 18:31 [id number]) Hot Pack/Cold Pack Treatment Hot Pack Location lumbar spine Patient Position Supine Treatment Duration (minutes) 10 Patient Tolerance Good PT-OP-T Assessment and Plan Start: 01/12/20 08:16 Freq: Status: Active Protocol: Document 01/12/20 13:51 (Rec: 01/12/20 18:31 [id number]) Physical Therapy Assessment Goals LEFS Impairment pt scores 8/80 for LEFS Short Term Goal (STG) Pt will score 20/80 for LEFS STG Duration 6 weeks Mcfp Goal (LTG) Pt will score >30 for LEFS to improve her quality of life with less pain for functional activities. LTG Duration 12 weeks sleep Impairment unable to sleep on her L side Short Term Goal (STG) Pt will be able to sleep on her L side to improve her quality of sleep STG Duration 6 weeks gait Impairment pt is using 4WW d/t falls and leg pain Short Term Goal (STG) pt will not a have a fall within 2 weeks and be able to use spC at home to amb STG Duration 6 weeks Mcfp Goal (LTG) pt will not have a fall > 2 months and be able to use SPC/ no AD for community mobility to improve independence level LTG Duration 12 weeks pain Impairment pt has severe pain at all times 7/10 Short Term Goal (STG) pt will not have LBP/ shooting L leg pain more than 6/10 STG Duration 6 weeks Mcfp Goal (LTG) pt will not ahve LBP/shooting L leg pain more than 4/10 so she could increase her ambulation disatance and sitting tolerance. LTG Duration 12 weeks Assessment Summary Assessment Pt presents to clinic with 4 WW. Her radiculopathy symptoms seems to not follow directional preference. But hip distraction and knee to chest ex do relieve her symptoms. Added knee to chest, bridgin, LTR and sciatic nerve glide for HEP. Pt cont like to discuss about her pain and pathology, education given regarding POC. Physical Therapy Plan Next Visit Focus/Plan Next Note Type Treatment Note Next Visit Plan nerve glide lumbar traction, hip distraction gravity eliminated trunk stability ex B LE strengthening manual therapy for parapsinals and gluteals
--- NOTE | 2020-01-28 10:03 | PT.OTN ---
Current Diagnoses Spinal stenosis, lumbosacral region (01/28/20) Radiculopathy, lumbosacral region (01/28/20) Physical Therapy Treatment Note PT-OP-A Visit Information Start: 01/12/20 08:16 Freq: Status: Active Protocol: Document 01/28/20 09:06 HH (Rec: 01/28/20 10:02 [id number]) Out-Patient Physical Therapy Visit Information Visit Information Visit Type Treatment Note Visit Start Time 09:06 Visit Stop Time 09:45 Total Visit Minutes 39 Visit Number 02/14 Number of RETURNING OFFICER Visits 0 PT-OP-B Current Condition Start: 01/12/20 08:16 Freq: Status: Active Protocol: Document 01/07/20 14:30 HH (Rec: 01/12/20 08:45 [email or web address]) Current Condition History of Current Condition Onset Date > 2mons for acute symptoms, chronic LBP >10 years Current Complaints Chronic LBP, new neurological symptoms, weakness, falls History of Current Condition Pt is a 64yo female with chronic LBP >10 years and new onset of neurological symptoms since October,. Pt recently started to have sharp groin pain that radiates into her anterior thigh that responds to hydrocodone; parasthesias and pain that radiate from her anterior knee and along her tibia that don' t seem to respond to medication. She is also having increasing difficulty with ambulation due to gait instability and pain. Pt has been using 4WW since then but her leg tends to give out occasionally. Pt had MRI 2018 showed Degenerative disc bulge and bilateral facet arthrosis at L2-3 through L5- S1 levels causing mild to moderate central canal stenosis and bilateral neuroforaminal narrowing as described above more prominent at L2-3 and L3-4 levels. Pt's symptoms tend to get better with slouching, sitting on a recliner but worse with standing , sitting or with pressure to the back/ hip area . She had a previous surgical consultation with Dr. Lyles who did not consider her to be a surgical candidate. Pt is currently taking diclofenac 50 mg p.o. b.i.d., cyclobenzaprine 5 mg p.o. as needed that can be increased to 10 mg if necessary, gabapentin 600 mg p.o. t.i.d., and hydrocodone acetaminophen 7.5 -325 mg occasionally. Prior Treatments and Tests MRI 04/08/19 reveal DDD, bilateral facet arthropathy at L2 through S1 with bilateral foraminal narrowing most prominent at L2-3 and L3-4 with corresponding left L3 and bilateral L4 nerve root compression. Pt had 2 hospital visits recently d/t back pain , altered mental status. Future Testing and Treatments Planned Pt got referral for EMG nerve conduction study of her L leg Treatment Goals Patient/Caregiver Goals 1. to reduce her pain during sitting/ standing/ walking 2. to be able to walk without AD again 3. able to sleep on her L side Prior Functional Status Baseline Function- ADL's Independent Baseline Function- Mobility Independent Current Functional Impairments (Reported) Functional Limitations- Mobility/Gait use 4WW for most of the mobility d/t severe pain and fall risks Functional Limitations- Other unable to sleep on her L side PT-OP-C Subjective Start: 01/12/20 08:16 Freq: Status: Active Protocol: Document 01/28/20 09:06 HH (Rec: 01/28/20 10:02 HH [id number]) OP-PT Subjective Patient Comments Patient Comments I have a lot of pain last night on my back and left leg. The inversion table tends to relieve my symptoms. Patient Reported Progress Same PT-OP-D Balance Start: 01/12/20 08:16 Freq: Status: Active Protocol: Document 01/07/20 14:30 HH (Rec: 01/12/20 08:45 HH [email or web address]) Balance Tests Single Limb Standing Single Limb- Right 3 Single Limb- Left 0 PT-OP-F Manual Assessment Start: 01/12/20 08:16 Freq: Status: Active Protocol: Document 01/07/20 14:30 HH (Rec: 01/12/20 08:45 HH [email or web address]) Manual Assessments Soft Tissue Assessment Soft Tissue Mobility Assessment sensitive to light touch at anerior knee and trent region tenderness to touch pressure and lumbar paraspinals bilaterally and hip ext/ abd PT-OP-G Mobility & Gait Start: 01/12/20 08:16 Freq: Status: Active Protocol: Document 01/07/20 14:30 HH (Rec: 01/12/20 08:45 HH [email or web address]) OP Gait Assessment Assistive Devices Assistive Device Straight Cane Orthotic/Prosthetic Devices or Brace: No Gait Deviations General Gait Pattern Antalgic,Decreased Stride Length,Decreased Feet Clearance,Flexed Trunk,Lateral Trunk Lean Factors Limiting Gait Function Factors Limiting Gait Function Decreased Activity Tolerance, Decreased Sensation,Decreased Strength,Limited Range of Motion,Pain,Poor Balance,Poor Safety Awareness Comments Gait Comments pt shows significant lateral trunk lean towards R side with reduced WB on LE. PT-OP-H Neuro Start: 01/12/20 08:16 Freq: Status: Active Protocol: Document 01/07/20 14:30 HH (Rec: 01/12/20 08:45 [email or web address]) Deep Tendon Reflex & Clonus Assessment Deep Tendon Reflex Bilateral Achilles Deep Tendon Reflex 2+ Normal Bilateral Patellar Deep Tendon Reflex 2+ Normal PT-OP-J Posture/Palpation/Skin Start: 01/12/20 08:16 Freq: Status: Active Protocol: Document 01/07/20 14:30 HH (Rec: 01/12/20 08:45 [email or web address]) Posture Evaluation Comments Posture Comments Lateral trunk lean to R in standing PT-OP-K Range of Motion Start: 01/12/20 08:16 Freq: Status: Active Protocol: Document 01/07/20 14:30 HH (Rec: 01/12/20 08:45 [email or web address]) Lumbar Spine Range of Motion Lumbar Spine Active Percentage Testing Position Standing Flexion 40 Extension 40 ROM Limitations Soft Tissue Tightness,Muscle Weakness,Pain Comments toe touch test 8 inches away from floor and pt is unable to maintain balance PT-OP-L Special Tests Start: 01/12/20 08:16 Freq: Status: Active Protocol: Document 01/07/20 14:30 HH (Rec: 01/12/20 08:45 [email or web address]) Special Tests Lumbar Spine Special Tests knee to chest Test Results -ve Comments denies discomfort/ radiating pain Manual Traction Test Results +Ve L Comments L hip distraction reduced pt's symptoms Straight Leg Raise Test Results +VE L Comments 60 degrees with pain and numbness at L ant knee Slump Test Results +ve L Comments pain and numbness reproduced at L anterior knee with DF and knee extended PT-OP-M Strength Start: 01/12/20 08:16 Freq: Status: Active Protocol: Document 01/07/20 14:30 HH (Rec: 01/12/20 08:45 [email or web address]) Hip Strength Hip Manual Muscle Testing Left Flexion (L2) 4- Good- Extension (S1) 4- Good- Abduction 3+ Fair+ Adduction 4- Good- Comments pain with resistedhip motion. Right Flexion (L2) 4+ Good+ Extension (S1) 4+ Good+ Abduction 4 Good Adduction 4+ Good+ Knee Strength Knee Manual Muscle Testing Right Flexion (S2) 4 Good Extension (L3) 4 Good Left Flexion (S2) 4- Good- Extension (L3) 4- Good- Ankle/Foot Strength Ankle and Foot Manual Muscle Testing Right Dorsiflexion (L4) 4+ Good+ Plantarflexion (S1) 4+ Good+ Left Dorsiflexion (L4) 4 Good Plantarflexion (S1) 4 Good PT-OP-Q Treatments Start: 01/12/20 08:16 Freq: Status: Active Protocol: Document 01/28/20 09:06 (Rec: 01/28/20 10:02 [id number]) Therapeutic Exercises Supine Exercises sciatic nerve glide Side bilateral Reps/Minutes 6x 2 LTR Side bilateral Reps/Minutes 6x2 bridging with pillow squeeze Supine Exercise Name mid range Side bilateral Reps/Minutes 6 x 2 Manual Therapy Treatment Soft Tissue Mobilization L hip abductors Body Location L glute Mobilization Type Sustained Pressure,Trigger Point Release Intensity/Depth Moderate Body Position Sidelying Comments c/o tenderness at proximal insertion Joint Mobilizations L hip Direction inferior Grade III Body Position Supine Reps/Duration 5 sec x 8 Comments pt reports improved symptoms Orthotic/Prosthetic Management and Training Treatment Details of Training shoe lift with 0.5 inch cork insert on R side. PT-OP-R Modalities Start: 01/12/20 08:16 Freq: Status: Active Protocol: Document 01/12/20 13:51 (Rec: 01/12/20 18:31 [id number]) Hot Pack/Cold Pack Treatment Hot Pack Location lumbar spine Patient Position Supine Treatment Duration (minutes) 10 Patient Tolerance Good PT-OP-T Assessment and Plan Start: 01/12/20 08:16 Freq: Status: Active Protocol: Document 01/28/20 09:06 (Rec: 01/28/20 10:02 [id number]) Physical Therapy Assessment Goals LEFS Impairment pt scores 8/80 for LEFS Short Term Goal (STG) Pt will score 20/80 for LEFS STG Duration 6 weeks Nursing Home Goal (LTG) Pt will score >30 for LEFS to improve her quality of life with less pain for functional activities. LTG Duration 12 weeks sleep Impairment unable to sleep on her L side Short Term Goal (STG) Pt will be able to sleep on her L side to improve her quality of sleep STG Duration 6 weeks gait Impairment pt is using 4WW d/t falls and leg pain Short Term Goal (STG) pt will not a have a fall within 2 weeks and be able to use spC at home to amb STG Duration 6 weeks Nursing Home Goal (LTG) pt will not have a fall > 2 months and be able to use SPC/ no AD for community mobility to improve independence level LTG Duration 12 weeks pain Impairment pt has severe pain at all times 7/10 Short Term Goal (STG) pt will not have LBP/ shooting L leg pain more than 6/10 STG Duration 6 weeks Nursing Home Goal (LTG) pt will not ahve LBP/shooting L leg pain more than 4/10 so she could increase her ambulation disatance and sitting tolerance. LTG Duration 12 weeks Assessment Summary Assessment Pt presents to clinic with SPC and amb with antalgic gait. Her symptoms cont to be somewhat inconclusive since she could perform WFL hip and lumbar AROM without c/o. She was able to mobilize during session without much of a complaint as she previously stated. Given 0.5 inch cork insert to her R shoe since pt has a true LLD with R LE 0.8 inch shorter. Will cont monitor pt's symptoms and start progressive strengthening. Physical Therapy Plan Next Visit Focus/Plan Next Note Type Treatment Note Next Visit Plan nerve glide lumbar traction, hip distraction gravity eliminated trunk stability ex B LE strengthening manual therapy for parapsinals and gluteals
--- NOTE | 2020-01-28 10:15 | PT.OTN ---
Current Diagnoses Spinal stenosis, lumbosacral region (01/28/20) Radiculopathy, lumbosacral region (01/28/20) Physical Therapy Treatment Note PT-OP-A Visit Information Start: 01/12/20 08:16 Freq: Status: Active Protocol: Document 01/28/20 09:06 HH (Rec: 01/28/20 10:02 [id number]) Out-Patient Physical Therapy Visit Information Visit Information Visit Type Treatment Note Visit Start Time 09:06 Visit Stop Time 09:45 Total Visit Minutes 39 Visit Number 02/14 Number of PARTS SPECIALIST Visits 0 PT-OP-B Current Condition Start: 01/12/20 08:16 Freq: Status: Active Protocol: Document 01/07/20 14:30 HH (Rec: 01/12/20 08:45 [email or web address]) Current Condition History of Current Condition Onset Date > 2mons for acute symptoms, chronic LBP >10 years Current Complaints Chronic LBP, new neurological symptoms, weakness, falls History of Current Condition Pt is a 64yo female with chronic LBP >10 years and new onset of neurological symptoms since October,. Pt recently started to have sharp groin pain that radiates into her anterior thigh that responds to hydrocodone; parasthesias and pain that radiate from her anterior knee and along her tibia that don' t seem to respond to medication. She is also having increasing difficulty with ambulation due to gait instability and pain. Pt has been using 4WW since then but her leg tends to give out occasionally. Pt had MRI 2018 showed Degenerative disc bulge and bilateral facet arthrosis at L2-3 through L5- S1 levels causing mild to moderate central canal stenosis and bilateral neuroforaminal narrowing as described above more prominent at L2-3 and L3-4 levels. Pt's symptoms tend to get better with slouching, sitting on a recliner but worse with standing , sitting or with pressure to the back/ hip area . She had a previous surgical consultation with Dr. Lyles who did not consider her to be a surgical candidate. Pt is currently taking diclofenac 50 mg p.o. b.i.d., cyclobenzaprine 5 mg p.o. as needed that can be increased to 10 mg if necessary, gabapentin 600 mg p.o. t.i.d., and hydrocodone acetaminophen 7.5 -325 mg occasionally. Prior Treatments and Tests MRI 04/08/19 reveal DDD, bilateral facet arthropathy at L2 through S1 with bilateral foraminal narrowing most prominent at L2-3 and L3-4 with corresponding left L3 and bilateral L4 nerve root compression. Pt had 2 hospital visits recently d/t back pain , altered mental status. Future Testing and Treatments Planned Pt got referral for EMG nerve conduction study of her L leg Treatment Goals Patient/Caregiver Goals 1. to reduce her pain during sitting/ standing/ walking 2. to be able to walk without AD again 3. able to sleep on her L side Prior Functional Status Baseline Function- ADL's Independent Baseline Function- Mobility Independent Current Functional Impairments (Reported) Functional Limitations- Mobility/Gait use 4WW for most of the mobility d/t severe pain and fall risks Functional Limitations- Other unable to sleep on her L side PT-OP-C Subjective Start: 01/12/20 08:16 Freq: Status: Active Protocol: Document 01/28/20 09:06 HH (Rec: 01/28/20 10:02 HH [id number]) OP-PT Subjective Patient Comments Patient Comments I have a lot of pain last night on my back and left leg. The inversion table tends to relieve my symptoms. Patient Reported Progress Same PT-OP-D Balance Start: 01/12/20 08:16 Freq: Status: Active Protocol: Document 01/07/20 14:30 HH (Rec: 01/12/20 08:45 HH [email or web address]) Balance Tests Single Limb Standing Single Limb- Right 3 Single Limb- Left 0 PT-OP-F Manual Assessment Start: 01/12/20 08:16 Freq: Status: Active Protocol: Document 01/07/20 14:30 HH (Rec: 01/12/20 08:45 HH [email or web address]) Manual Assessments Soft Tissue Assessment Soft Tissue Mobility Assessment sensitive to light touch at anerior knee and trent region tenderness to touch pressure and lumbar paraspinals bilaterally and hip ext/ abd PT-OP-G Mobility & Gait Start: 01/12/20 08:16 Freq: Status: Active Protocol: Document 01/07/20 14:30 HH (Rec: 01/12/20 08:45 HH [email or web address]) OP Gait Assessment Assistive Devices Assistive Device Straight Cane Orthotic/Prosthetic Devices or Brace: No Gait Deviations General Gait Pattern Antalgic,Decreased Stride Length,Decreased Feet Clearance,Flexed Trunk,Lateral Trunk Lean Factors Limiting Gait Function Factors Limiting Gait Function Decreased Activity Tolerance, Decreased Sensation,Decreased Strength,Limited Range of Motion,Pain,Poor Balance,Poor Safety Awareness Comments Gait Comments pt shows significant lateral trunk lean towards R side with reduced WB on LE. PT-OP-H Neuro Start: 01/12/20 08:16 Freq: Status: Active Protocol: Document 01/07/20 14:30 HH (Rec: 01/12/20 08:45 [email or web address]) Deep Tendon Reflex & Clonus Assessment Deep Tendon Reflex Bilateral Achilles Deep Tendon Reflex 2+ Normal Bilateral Patellar Deep Tendon Reflex 2+ Normal PT-OP-J Posture/Palpation/Skin Start: 01/12/20 08:16 Freq: Status: Active Protocol: Document 01/07/20 14:30 HH (Rec: 01/12/20 08:45 [email or web address]) Posture Evaluation Comments Posture Comments Lateral trunk lean to R in standing PT-OP-K Range of Motion Start: 01/12/20 08:16 Freq: Status: Active Protocol: Document 01/07/20 14:30 HH (Rec: 01/12/20 08:45 [email or web address]) Lumbar Spine Range of Motion Lumbar Spine Active Percentage Testing Position Standing Flexion 40 Extension 40 ROM Limitations Soft Tissue Tightness,Muscle Weakness,Pain Comments toe touch test 8 inches away from floor and pt is unable to maintain balance PT-OP-L Special Tests Start: 01/12/20 08:16 Freq: Status: Active Protocol: Document 01/07/20 14:30 HH (Rec: 01/12/20 08:45 [email or web address]) Special Tests Lumbar Spine Special Tests knee to chest Test Results -ve Comments denies discomfort/ radiating pain Manual Traction Test Results +Ve L Comments L hip distraction reduced pt's symptoms Straight Leg Raise Test Results +VE L Comments 60 degrees with pain and numbness at L ant knee Slump Test Results +ve L Comments pain and numbness reproduced at L anterior knee with DF and knee extended PT-OP-M Strength Start: 01/12/20 08:16 Freq: Status: Active Protocol: Document 01/07/20 14:30 HH (Rec: 01/12/20 08:45 [email or web address]) Hip Strength Hip Manual Muscle Testing Left Flexion (L2) 4- Good- Extension (S1) 4- Good- Abduction 3+ Fair+ Adduction 4- Good- Comments pain with resistedhip motion. Right Flexion (L2) 4+ Good+ Extension (S1) 4+ Good+ Abduction 4 Good Adduction 4+ Good+ Knee Strength Knee Manual Muscle Testing Right Flexion (S2) 4 Good Extension (L3) 4 Good Left Flexion (S2) 4- Good- Extension (L3) 4- Good- Ankle/Foot Strength Ankle and Foot Manual Muscle Testing Right Dorsiflexion (L4) 4+ Good+ Plantarflexion (S1) 4+ Good+ Left Dorsiflexion (L4) 4 Good Plantarflexion (S1) 4 Good PT-OP-Q Treatments Start: 01/12/20 08:16 Freq: Status: Active Protocol: Document 01/28/20 09:06 (Rec: 01/28/20 10:02 [id number]) Therapeutic Exercises Supine Exercises sciatic nerve glide Side bilateral Reps/Minutes 6x 2 LTR Side bilateral Reps/Minutes 6x2 bridging with pillow squeeze Supine Exercise Name mid range Side bilateral Reps/Minutes 6 x 2 Manual Therapy Treatment Soft Tissue Mobilization L hip abductors Body Location L glute Mobilization Type Sustained Pressure,Trigger Point Release Intensity/Depth Moderate Body Position Sidelying Comments c/o tenderness at proximal insertion Joint Mobilizations L hip Direction inferior Grade III Body Position Supine Reps/Duration 5 sec x 8 Comments pt reports improved symptoms Orthotic/Prosthetic Management and Training Treatment Details of Training shoe lift with 0.5 inch cork insert on R side. PT-OP-R Modalities Start: 01/12/20 08:16 Freq: Status: Active Protocol: Document 01/12/20 13:51 (Rec: 01/12/20 18:31 [id number]) Hot Pack/Cold Pack Treatment Hot Pack Location lumbar spine Patient Position Supine Treatment Duration (minutes) 10 Patient Tolerance Good PT-OP-T Assessment and Plan Start: 01/12/20 08:16 Freq: Status: Active Protocol: Document 01/28/20 09:06 (Rec: 01/28/20 10:02 [id number]) Physical Therapy Assessment Goals LEFS Impairment pt scores 8/80 for LEFS Short Term Goal (STG) Pt will score 20/80 for LEFS STG Duration 6 weeks Correction Goal (LTG) Pt will score >30 for LEFS to improve her quality of life with less pain for functional activities. LTG Duration 12 weeks sleep Impairment unable to sleep on her L side Short Term Goal (STG) Pt will be able to sleep on her L side to improve her quality of sleep STG Duration 6 weeks gait Impairment pt is using 4WW d/t falls and leg pain Short Term Goal (STG) pt will not a have a fall within 2 weeks and be able to use spC at home to amb STG Duration 6 weeks Correction Goal (LTG) pt will not have a fall > 2 months and be able to use SPC/ no AD for community mobility to improve independence level LTG Duration 12 weeks pain Impairment pt has severe pain at all times 7/10 Short Term Goal (STG) pt will not have LBP/ shooting L leg pain more than 6/10 STG Duration 6 weeks Correction Goal (LTG) pt will not ahve LBP/shooting L leg pain more than 4/10 so she could increase her ambulation disatance and sitting tolerance. LTG Duration 12 weeks Assessment Summary Assessment Pt presents to clinic with SPC and amb with significant antalgic gait. Her symptoms cont to be somewhat inconclusive since she was able perform WFL hip and lumbar AROM without complaint during session which is not consistent as she previously stated. Her habitual mobility seems to be WFL as well. She was also able to amb out of the clinic towards parking lot by minimally using her cane. This session provides pt a 0.5 inch cork insert to her R shoe since pt has a true LLD with R LE 0.8 inch shorter. Will cont monitor pt's symptoms and start progressive strengthening. Physical Therapy Plan Next Visit Focus/Plan Next Note Type Treatment Note Next Visit Plan nerve glide lumbar traction, hip distraction gravity eliminated trunk stability ex B LE strengthening manual therapy for parapsinals and gluteals
== END 2020-09-05 13:10 ==
LOC: PHYS 09:00
PROVIDERS: Family Provider Registered Nurse; PCP Internal Medicine; Referring Provider Registered Nurse; Visit Provider Registered Nurse
DX: M48.07 Spinal stenosis, lumbosacral region (principal); M54.17 Radiculopathy, lumbosacral region
CPT/HCPCS: 97010; 97110; 97140; 97163; 97760

== ENCOUNTER → 2020-02-03 08:02 | Outpatient (CLI) | payer BC, SELFPAY ==
[2020-02-03 10:06] LABS: Hemoglobin A1C% w Est Avg Glu 7.2 % (4.0-6.0)
[2020-02-03 10:09] LABS: Alanine Aminotransferase 20 IU/L (<35); Albumin 4.4 g/dL (3.5-5.0); Albumin Globulin Ratio 1.8 (1.0-2.8); Alkaline Phosphatase 48 U/L (38-126); Aspartate Aminotransferase 19 IU/L (14-36); BUN Creatinine Ratio 20.7 (6-22); Bilirubin Total 0.2 mg/dL (0.2-1.3); Blood Urea Nitrogen 18 mg/dL (7-17); Calcium 9.3 mg/dL (8.4-10.2); Carbon Dioxide 20 mmol/L (22-32); Chloride 105 mmol/L (98-107); Cholesterol 143 mg/dL (140-199); Estimated Glomerular Filt Rate > 60.0 mL/min (>60); Globulin 2.5 g/dL (1.7-4.1); Glucose 106 mg/dL (80-110); HDL Cholesterol 44 mg/dL (40-60); HEMOLYSIS < 15 (0-50); LDL Cholesterol Calculated 33 mg/dL (<100); Potassium 5.2 mmol/L (3.4-5.1); Sodium 137 mmol/L (137-145); Total Protein 6.9 g/dL (6.3-8.2); Triglycerides 332 mg/dL (35-150)
== END ==
PROVIDERS: Family Provider Registered Nurse; PCP Internal Medicine; Referring Provider Internal Medicine; Visit Provider Internal Medicine
DX: E11.65 Type 2 diabetes mellitus with hyperglycemia (principal); E78.2 Mixed hyperlipidemia; I25.10 Atherosclerotic heart disease of native coronary artery without angina pectoris
CPT/HCPCS: 36415; 80053; 80061; 83036

== ENCOUNTER 2020-03-16 01:18 | Inpatient (IN) | payer BC, SELFPAY ==
[2020-03-16] VITALS (11 sets, daily range): BP systolic 122–192; BP diastolic 63–89; PULSE 60–77; RESP 20–35; TEMP 36.7–37.2; O2SAT 96–99; BMI 24.3
--- NOTE | 2020-03-16 01:25 | DI.RAD.S_ITS ---
PROCEDURE: XR CHEST 1V INDICATIONS: hypoxic TECHNIQUE: One view of the chest was acquired. COMPARISON: [facility], CR, XR CHEST 1 VIEW, 10/24/2019, 11:56. FINDINGS: Surgical changes and devices: Median sternotomy wires are present and appear intact. Soft tissue anchor is noted in the left humeral head. Lungs and pleura: Lungs are clear. No pleural effusions or pneumothorax. Mediastinum: Mediastinal contours appear normal. Heart size is normal. Bones and chest wall: No suspicious bony lesions. Overlying soft tissues appear unremarkable. IMPRESSION: Stable radiographic evaluation of the chest without acute cardiopulmonary abnormalities or focal airspace disease. Dictated by: Arnulfo Watts M.D. on 03/16/2020 at 8:07 Approved by: Arnulfo Wtats M.D. on 03/16/2020 at 8:08
--- NOTE | 2020-03-16 01:38 | ED.AMS ---
HPI - Altered Mental Status General Chief Complaint: Altered Mental Status Stated Complaint: Decreased LOC Time Seen by Provider: 03/16/20 01:20 Source: family and EMS Mode of arrival: EMS Limitations: altered mental status History of Present Illness HPI narrative: 64-year-old female former smoker with history of type 2 diabetes and chronic pain presents with EMS after they were activated due to about 2 days worsening altered mental status. There is no reported travel, injuries, fever or change in medications. She has no reported focal neurologic deficits. She has had no reported seizure activity. On arrival EMS finds blood glucose to be in the normal range. She has no known liver history. Patient found to have pulse ox in the upper 70s and low 80s, she does not use oxygen at home MD complaint: altered mental status Onset (ago): day(s) Timing confirmed by: spouse Severity: severe Consistency of symptoms: getting worse Context: history of similar presentation Treatments prior to arrival: IV fluid and oxygen Related Data Home Medications Medication Instructions Recorded Confirmed Homeopathic Substance (ALLERGY) 1 tab SUBLINGUAL DIRECTED #0 01/09/12 12/28/19 aspirin 81 mg tablet,delayed 81 mg PO DAILY 05/02/18 12/28/19 release albuterol sulfate [Proventil HFA] 1 puff IH PRN PRN 06/05/19 12/28/19 atorvastatin 40 mg PO QPM 10/23/19 12/28/19 diclofenac sodium 50 mg PO BID PRN 10/23/19 12/28/19 estradiol 1 mg PO DAILY 10/23/19 12/28/19 fluticasone propionate 2 spray INTRANASAL PRN PRN 12/08/19 12/28/19 lisinopril 10 mg PO DAILY 12/08/19 12/28/19 medroxyprogesterone 10 mg PO DAILY 12/08/19 12/28/19 melatonin 5 mg PO BEDTIME PRN 12/08/19 12/28/19 Previous Rx's Medication Instructions Recorded Glucose: Test Strips #100 each 04/14/19 tramadol 50 mg tablet 50 mg PO TID PRN #60 tab 08/17/19 gabapentin 600 mg tablet 600 mg PO TID #120 tab 08/24/19 Disabled [address]ing #1 each 10/30/19 glipizide 5 mg tablet 5 mg PO BID #60 tab 12/28/19 metformin 1,000 mg tablet 1,000 mg PO BID #180 tab 12/28/19 duloxetine 30 mg capsule,delayed 30 mg PO BID #180 cap 01/29/20 release cyclobenzaprine 10 mg tablet 10 mg PO TID PRN #60 tab 02/08/20 zolpidem 10 mg tablet 10 mg PO BEDTIME #30 tab 02/08/20 atenolol 25 mg tablet 25 mg PO DAILY #90 tab 02/24/20 tamsulosin 0.4 mg capsule 0.4 mg PO DAILY #90 cap 02/25/20 hydrocodone 7.5 mg-acetaminophen 1 - 2 tab PO Q4HP PRN #90 tab 02/26/20 325 mg tablet Allergies Allergy/AdvReac Type Severity Reaction Status Date / Time banana [BANANA] Allergy Unknown Verified 12/28/19 09:58 Review of Systems Review of Systems ROS Unobtainable: Unobtainable due to mental status/LOC Patient History Medical History Back pain (Chronic 03/19/14) CAD (coronary atherosclerotic disease) (Chronic ~1998) Diabetic peripheral neuropathy (Chronic 11/10/15) Fibromyalgia (Chronic 03/12/17) Foraminal stenosis of lumbosacral region (Chronic) GERD (gastroesophageal reflux disease) (Chronic) Herniated disc (Acute) Hypertension (Chronic) Mixed hyperlipidemia (Chronic) Myocardial infarction (Acute ~1998) Recurrent major depressive disorder, in full remission (Chronic) Type 2 diabetes mellitus with hyperglycemia (Chronic) Type 2 diabetes mellitus without complication (Chronic) Unspecified asthma (Chronic) Surgical History 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) Status post appendectomy Surgical procedure planned (Resolved) Family History Sister Family history of diabetes mellitus (DM) Social History marital status: number of children: 0 household members: spouse lives independently: Yes caregiver/support person: No housing: house pets and animals: No education level: high school (Some College) occupational status: other (Retired) current occupational exposures/hazards: No 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 Well-nourished, obviously ill. Awake, but not responding other than a few words here and there. She has no obvious or significant work of breathing HEAD: Atraumatic. Normocephalic. EYES: Pupils equal round and reactive. Extraocular motions intact. No scleral icterus. No injection or drainage. ENT: Nose without bleeding, purulent drainage. Throat without erythema, tonsillar hypertrophy or exudate. Airway patent. NECK: Trachea midline. Non tender CARDIOVASCULAR: Regular rate and rhythm without murmurs, gallops, or rubs. RESPIRATORY: Clear to auscultation. Breath sounds equal bilaterally. No wheezes, rales, or rhonchi. GASTROINTESTINAL: Abdomen soft, non-tender, nondistended. EXTREMITIES: No edema or joint tenderness. BACK: Nontender without deformity or crepitance. No flank tenderness. NEURO: Awake. Guarding airway. Knows we are at the hospital. SKIN: No rash or erythema of visible areas Initial Vital Signs Initial Vital Signs: Vital Signs Temperature 98.4 F 03/16/20 01:26 Pulse Rate 72 03/16/20 01:26 Respiratory Rate 22 03/16/20 01:26 Blood Pressure 192/81 H 03/16/20 01:26 Pulse Oximetry 96 03/16/20 01:26 Course Course Course Narrative: patient a very difficult IV stick, multiple nurses have tried and only a small 22G in L arm currently. Unsuccessful attempt at EJ. Attempt to place triple lumen, but patient is still a bit confused and is rolling around on the bed and creating an unsafe scenario so the attempt is aborted and call to [facility] for midline placement. Orders Ordered: ED Orders 03/16/20 00:15 Complete Blood Count AUTO DIFF Stat 03/16/20 01:22 Arterial Blood Gas Stat 04/29/20 01:24 EKG-12 Lead Stat 03/16/20 01:25 XR chest 1V Stat 03/16/20 01:27 Osmolality, Serum Stat 03/16/20 01:53 Arterial Blood Gas Stat 03/16/20 01:55 Acetaminophen Stat C-Reactive Protein Quant Routine Comprehensive Metabolic Panel Stat Ethanol (ETOH) Stat Procalcitonin Stat Prolactin Stat Salicylate Stat Thyroid Stimulating Hormone Stat 03/16/20 02:00 Urinalysis and Microscopic Stat Urine Drug Screen, Rapid Stat 03/16/20 02:10 D Dimer Stat Lactate (Lactic Acid) Stat Partial Thromboplastin Time Stat Prothrombin Time INR Stat 03/16/20 04:26 CT chest wo con Stat CT head/brain wo con Stat 03/16/20 06:25 Ammonia (NH3) Stat Blood Culture Stat Ferritin Stat Lactate Dehydrogenase Stat Troponin & CK Cardiac Panel Stat Sodium Chloride (Normal Saline 0.9%) 1,000 mls @ 150 mls/hr IV CONT IMTIAZ Last Admin: 03/16/20 02:13 Dose: 150 mls/hr Documented by: KEVIN Discontinued Medications Sodium Chloride (Normal Saline 0.9%) 1,860 mls @ 620 mls/hr 30 ml/kg infuse over 3 hr (1860 ml) IV NOW ONE Stop: 03/16/20 05:43 Levofloxacin (Levaquin) 750 mg in 150 mls @ 100 mls/hr IV NOW ONE Stop: 03/16/20 04:13 Reevaluation(s) Reevaluation #1: patient continues to slowly improve. She still is not responding to any questions but is now slightly directable and helped slide herself to the CT table. She certainly responds to noxious stimuli. She is no longer requiring supplemental oxygen and imaging does not note any airspace disease. As the evening wears on this seems to be more and more likely a metabolic or toxic encephalopathy, perhaps secondary to polysubstance. Narcan was considered, however there are no pinpoint pupils and given widespread tox screen it is unlikely did provide any significant benefit and given her chronic use there is concern that we could potentially worsen her condition and the potential benefit at this point is low given her slow and gradual improvement and no respiratory compromise. Vital Signs Vital signs: Vital Signs - 8 hr 03/16/20 01:26 03/16/20 04:00 03/16/20 04:55 Temperature 98.4 F Pulse Rate 72 67 77 Respiratory Rate 22 26 H 28 H Blood Pressure 192/81 H Blood Pressure [Right Arm] 140/63 122/89 Pulse Oximetry 96 98 98 MDM - Altered Mental Status Lab Data Result diagrams: 03/16/20 00:15 03/16/20 01:55 Labs: Lab Results 03/16/20 03/16/20 03/16/20 Range/Units 00:15 01:53 01:55 WBC 17.5 H (4.5-11.0) X10^3/uL RBC 4.54 (4.0-5.2) X10^6/uL Hgb 13.0 (12.0-16.0) g/dL Hct 40.2 (36-46) % MCV 88.6 (80-100) fL MCH 28.6 (26-34) PG MCHC 32.3 (30-36) % RDW 13.0 (11.6-14.8) % Plt Count 310 (150-400) X10^3/uL Neut % (Auto) 78.9 H (50-75) % Lymph % (Auto) 16.4 L (25-40) % [place] % (Auto) 4.0 (3-14) % Eos % (Auto) 0.3 L (2-4) % Baso % (Auto) 0.4 (0-2) % Neut # (Auto) 51002 H (1884-1396) /uL Lymph # (Auto) 2900 (6793-1320) /uL [place] # (Auto) 700 (0-900) /uL Eos # (Auto) 0 (0-450) /uL Baso # (Auto) 100 (0-100) /uL PT (10.1-12.7) SECONDS INR (0.9-1.3) APTT (26.4-36.2) SECONDS D-Dimer (<230) ng/mL ABG pH 7.37 (7.35-7.45) ABG pCO2 39.0 (35-45) mmHg ABG pO2 80 (80-100) mmHg ABG HCO3 23 (22-26) mmol/L ABG Total CO2 24 (21-31) mmol/L ABG O2 Saturation 95 (95-100) % ABG Base Excess -3.0 L (-2-2) mmol/L FiO2 0.50 Sodium (137-145) mmol/L Potassium (3.4-5.1) mmol/L Chloride (98-107) mmol/L Carbon Dioxide (22-32) mmol/L BUN (7-17) mg/dL Creatinine (0.52-1.04) mg/dL Estimated GFR (>60) mL/min BUN/Creatinine Ratio (6-22) Glucose (80-110) mg/dL Lactate (0.7-2.1) mmol/L Calcium (8.4-10.2) mg/dL Total Bilirubin (0.2-1.3) mg/dL AST (14-36) IU/L ALT (<35) IU/L Alkaline Phosphatase (38-126) U/L C-Reactive Protein (<1.0) mg/dL Total Protein (6.3-8.2) g/dL Albumin (3.5-5.0) g/dL Globulin (1.7-4.1) g/dL Albumin/Globulin Ratio (1.0-2.8) Procalcitonin < 0.05 (<0.5) ng/mL TSH (0.47-4.68) uIU/mL Prolactin (3.0-18.6) ng/mL Urine Color Urine Appearance Urine pH (4.5-8.0) Ur Specific Blanchard (1.000-1.035) Urine Protein (Negative) Urine Glucose (UA) (Negative) g/dL Urine Ketones (NEGATIVE) Urine Occult Blood (Negative) Urine Nitrate (Negative) Urine Bilirubin (NEGATIVE) Urine Urobilinogen (0.2) E.U./dL Ur Leukocyte Esterase (NEGATIVE) Urine RBC (0-5/HPF) Urine WBC (0-5/HPF) Urine Bacteria (None) Granular Casts (None) Ur Culture Indicated? Salicylates (<20) mg/dL U Opiates 300ng/mL cut (Negative) Ur Oxycodone Screen (Negative) Urine Methadone Screen (Negative) Acetaminophen (10-30) ug/mL Ur Barbiturates Screen (Negative) U Tricyclic Antidepress (Negative) Ur Phencyclidine Scrn (Negative) Ur Amphetamines Screen (Negative) U Methamphetamines Scrn (Negative) Ur MDMA Scrn (Ecstasy) (Negative) U Benzodiazepines Scrn (Negative) Urine Cocaine Screen (Negative) U Marijuana (THC) Screen (Negative) Ethyl Alcohol ( - 10) mg/dL 03/16/20 03/16/20 03/16/20 Range/Units 01:55 01:55 01:55 WBC (4.5-11.0) X10^3/uL RBC (4.0-5.2) X10^6/uL Hgb (12.0-16.0) g/dL Hct (36-46) % MCV (80-100) fL MCH (26-34) PG MCHC (30-36) % RDW (11.6-14.8) % Plt Count (150-400) X10^3/uL Neut % (Auto) (50-75) % Lymph % (Auto) (25-40) % [place] % (Auto) (3-14) % Eos % (Auto) (2-4) % Baso % (Auto) (0-2) % Neut # (Auto) (3906-4008) /uL Lymph # (Auto) (7762-4095) /uL [place] # (Auto) (0-900) /uL Eos # (Auto) (0-450) /uL Baso # (Auto) (0-100) /uL PT (10.1-12.7) SECONDS INR (0.9-1.3) APTT (26.4-36.2) SECONDS D-Dimer (<230) ng/mL ABG pH (7.35-7.45) ABG pCO2 (35-45) mmHg ABG pO2 (80-100) mmHg ABG HCO3 (22-26) mmol/L ABG Total CO2 (21-31) mmol/L ABG O2 Saturation (95-100) % ABG Base Excess (-2-2) mmol/L FiO2 Sodium 143 (137-145) mmol/L Potassium 4.8 (3.4-5.1) mmol/L Chloride 104 (98-107) mmol/L Carbon Dioxide 22 (22-32) mmol/L BUN 26 H (7-17) mg/dL Creatinine 1.21 H (0.52-1.04) mg/dL Estimated GFR 45.1 L (>60) mL/min BUN/Creatinine Ratio 21.5 (6-22) Glucose 218 H (80-110) mg/dL Lactate (0.7-2.1) mmol/L Calcium 9.6 (8.4-10.2) mg/dL Total Bilirubin 0.5 (0.2-1.3) mg/dL AST 23 (14-36) IU/L ALT 18 (<35) IU/L Alkaline Phosphatase 59 (38-126) U/L C-Reactive Protein < 0.5 (<1.0) mg/dL Total Protein 8.2 (6.3-8.2) g/dL Albumin 5.2 H (3.5-5.0) g/dL Globulin 3.0 (1.7-4.1) g/dL Albumin/Globulin Ratio 1.7 (1.0-2.8) Procalcitonin (<0.5) ng/mL TSH 1.36 (0.47-4.68) uIU/mL Prolactin 14.9 (3.0-18.6) ng/mL Urine Color Urine Appearance Urine pH (4.5-8.0) Ur Specific Bl[place] (1.000-1.035) Urine Protein (Negative) Urine Glucose (UA) (Negative) g/dL Urine Ketones (NEGATIVE) Urine Occult Blood (Negative) Urine Nitrate (Negative) Urine Bilirubin (NEGATIVE) Urine Urobilinogen (0.2) E.U./dL Ur Leukocyte Esterase (NEGATIVE) Urine RBC (0-5/HPF) Urine WBC (0-5/HPF) Urine Bacteria (None) Granular Casts (None) Ur Culture Indicated? Salicylates 1.1 (<20) mg/dL U Opiates 300ng/mL cut (Negative) Ur Oxycodone Screen (Negative) Urine Methadone Screen (Negative) Acetaminophen < 10 L (10-30) ug/mL Ur Barbiturates Screen (Negative) U Tricyclic Antidepress (Negative) Ur Phencyclidine Scrn (Negative) Ur Amphetamines Screen (Negative) U Methamphetamines Scrn (Negative) Ur MDMA Scrn (Ecstasy) (Negative) U Benzodiazepines Scrn (Negative) Urine Cocaine Screen (Negative) U Marijuana (THC) Screen (Negative) Ethyl Alcohol < 10 ( - 10) mg/dL 03/16/20 03/16/20 03/16/20 Range/Units 02:00 02:00 02:10 WBC (4.5-11.0) X10^3/uL RBC (4.0-5.2) X10^6/uL Hgb (12.0-16.0) g/dL Hct (36-46) % MCV (80-100) fL MCH (26-34) PG MCHC (30-36) % RDW (11.6-14.8) % Plt Count (150-400) X10^3/uL Neut % (Auto) (50-75) % Lymph % (Auto) (25-40) % [place] % (Auto) (3-14) % Eos % (Auto) (2-4) % Baso % (Auto) (0-2) % Neut # (Auto) (0787-6463) /uL Lymph # (Auto) (8704-9053) /uL [place] # (Auto) (0-900) /uL Eos # (Auto) (0-450) /uL Baso # (Auto) (0-100) /uL PT (10.1-12.7) SECONDS INR (0.9-1.3) APTT (26.4-36.2) SECONDS D-Dimer 226 (<230) ng/mL ABG pH (7.35-7.45) ABG pCO2 (35-45) mmHg ABG pO2 (80-100) mmHg ABG HCO3 (22-26) mmol/L ABG Total CO2 (21-31) mmol/L ABG O2 Saturation (95-100) % ABG Base Excess (-2-2) mmol/L FiO2 Sodium (137-145) mmol/L Potassium (3.4-5.1) mmol/L Chloride (98-107) mmol/L Carbon Dioxide (22-32) mmol/L BUN (7-17) mg/dL Creatinine (0.52-1.04) mg/dL Estimated GFR (>60) mL/min BUN/Creatinine Ratio (6-22) Glucose (80-110) mg/dL Lactate (0.7-2.1) mmol/L Calcium (8.4-10.2) mg/dL Total Bilirubin (0.2-1.3) mg/dL AST (14-36) IU/L ALT (<35) IU/L Alkaline Phosphatase (38-126) U/L C-Reactive Protein (<1.0) mg/dL Total Protein (6.3-8.2) g/dL Albumin (3.5-5.0) g/dL Globulin (1.7-4.1) g/dL Albumin/Globulin Ratio (1.0-2.8) Procalcitonin (<0.5) ng/mL TSH (0.47-4.68) uIU/mL Prolactin (3.0-18.6) ng/mL Urine Color Yellow Urine Appearance Clear Urine pH 5.0 (4.5-8.0) Ur Specific Blanchard 1.020 (1.000-1.035) Urine Protein 2+ H (Negative) Urine Glucose (UA) Trace H (Negative) g/dL Urine Ketones Trace H (NEGATIVE) Urine Occult Blood Trace-lysed (Negative) Urine Nitrate Negative (Negative) Urine Bilirubin Negative (NEGATIVE) Urine Urobilinogen 0.2 (0.2) E.U./dL Ur Leukocyte Esterase Negative (NEGATIVE) Urine RBC 0-1/hpf (0-5/HPF) Urine WBC 1-5/hpf (0-5/HPF) Urine Bacteria None seen (None) Granular Casts 0-1/lpf (None) Ur Culture Indicated? Cult not indicated Salicylates (<20) mg/dL U Opiates 300ng/mL cut Positive H (Negative) Ur Oxycodone Screen Negative (Negative) Urine Methadone Screen Negative (Negative) Acetaminophen (10-30) ug/mL Ur Barbiturates Screen Negative (Negative) U Tricyclic Antidepress Positive H (Negative) Ur Phencyclidine Scrn Negative (Negative) Ur Amphetamines Screen Negative (Negative) U Methamphetamines Scrn Negative (Negative) Ur MDMA Scrn (Ecstasy) Negative (Negative) U Benzodiazepines Scrn Negative (Negative) Urine Cocaine Screen Negative (Negative) U Marijuana (THC) Screen Positive H (Negative) Ethyl Alcohol ( - 10) mg/dL 03/16/20 03/16/20 Range/Units 02:10 02:10 WBC (4.5-11.0) X10^3/uL RBC (4.0-5.2) X10^6/uL Hgb (12.0-16.0) g/dL Hct (36-46) % MCV (80-100) fL MCH (26-34) PG MCHC (30-36) % RDW (11.6-14.8) % Plt Count (150-400) X10^3/uL Neut % (Auto) (50-75) % Lymph % (Auto) (25-40) % [place] % (Auto) (3-14) % Eos % (Auto) (2-4) % Baso % (Auto) (0-2) % Neut # (Auto) (6321-9001) /uL Lymph # (Auto) (4296-5929) /uL [place] # (Auto) (0-900) /uL Eos # (Auto) (0-450) /uL Baso # (Auto) (0-100) /uL PT 11.1 (10.1-12.7) SECONDS INR 1.0 (0.9-1.3) APTT 26 L D (26.4-36.2) SECONDS D-Dimer (<230) ng/mL ABG pH (7.35-7.45) ABG pCO2 (35-45) mmHg ABG pO2 (80-100) mmHg ABG HCO3 (22-26) mmol/L ABG Total CO2 (21-31) mmol/L ABG O2 Saturation (95-100) % ABG Base Excess (-2-2) mmol/L FiO2 Sodium (137-145) mmol/L Potassium (3.4-5.1) mmol/L Chloride (98-107) mmol/L Carbon Dioxide (22-32) mmol/L BUN (7-17) mg/dL Creatinine (0.52-1.04) mg/dL Estimated GFR (>60) mL/min BUN/Creatinine Ratio (6-22) Glucose (80-110) mg/dL Lactate 2.9 H (0.7-2.1) mmol/L Calcium (8.4-10.2) mg/dL Total Bilirubin (0.2-1.3) mg/dL AST (14-36) IU/L ALT (<35) IU/L Alkaline Phosphatase (38-126) U/L C-Reactive Protein (<1.0) mg/dL Total Protein (6.3-8.2) g/dL Albumin (3.5-5.0) g/dL Globulin (1.7-4.1) g/dL Albumin/Globulin Ratio (1.0-2.8) Procalcitonin (<0.5) ng/mL TSH (0.47-4.68) uIU/mL Prolactin (3.0-18.6) ng/mL Urine Color Urine Appearance Urine pH (4.5-8.0) Ur Specific Blanchard (1.000-1.035) Urine Protein (Negative) Urine Glucose (UA) (Negative) g/dL Urine Ketones (NEGATIVE) Urine Occult Blood (Negative) Urine Nitrate (Negative) Urine Bilirubin (NEGATIVE) Urine Urobilinogen (0.2) E.U./dL Ur Leukocyte Esterase (NEGATIVE) Urine RBC (0-5/HPF) Urine WBC (0-5/HPF) Urine Bacteria (None) Granular Casts (None) Ur Culture Indicated? Salicylates (<20) mg/dL U Opiates 300ng/mL cut (Negative) Ur Oxycodone Screen (Negative) Urine Methadone Screen (Negative) Acetaminophen (10-30) ug/mL Ur Barbiturates Screen (Negative) U Tricyclic Antidepress (Negative) Ur Phencyclidine Scrn (Negative) Ur Amphetamines Screen (Negative) U Methamphetamines Scrn (Negative) Ur MDMA Scrn (Ecstasy) (Negative) U Benzodiazepines Scrn (Negative) Urine Cocaine Screen (Negative) U Marijuana (THC) Screen (Negative) Ethyl Alcohol ( - 10) mg/dL Point of Care Testing Glucose POC 185 Discharge Plan Departure Patient Disposition: Admitted As Inpatient Clinical Impression: Acute metabolic encephalopathy, Acute alteration in mental status Admit Date/Time: 03/16/20 06:11 Admit Provider: Karlos Pompa
[2020-03-16 02:07] LABS: HCO3 ABG 23 mmol/L (22-26); PO2 ABG 80 mmHg (80-100); TCO2 ABG 24 mmol/L (21-31); pH ABG 7.37 (7.35-7.45)
[2020-03-16 02:08] LABS: Oxygen Saturation ABG 95 % (95-100)
[2020-03-16] MEDS: SODIUM CHLORIDE 0.9% 1,000 ML 150 ML IV ×2 (02:13→12:03)
[2020-03-16 02:19] LABS: Add Manual Diff / Slide Review NO; Basophils Absolute Auto 100 /uL (0-100); Basophils Percent Auto 0.4 % (0-2); Eosinophils Absolute Auto 0 /uL (0-450); Eosinophils Percent Auto 0.3 % (2-4); Hematocrit 40.2 % (36-46); Lymphocytes Absolute Auto 2900 /uL (1100-4500); Lymphocytes Percent Auto 16.4 % (25-40); Mean Corpuscular HGB Conc 32.3 % (30-36); Mean Corpuscular Hemoglobin 28.6 PG (26-34); Mean Corpuscular Volume 88.6 fL (80-100); Monocytes Absolute Auto 700 /uL (0-900); Neutrophils Absolute Auto 13800 /uL (1500-7000); Neutrophils Percent Auto 78.9 % (50-75); Platelet Count 310 X10^3/uL (150-400); Red Blood Cell Count 4.54 X10^6/uL (4.0-5.2); White Blood Cell Count 17.5 X10^3/uL (4.5-11.0)
[2020-03-16 02:21] LABS: Acetaminophen < 10 ug/mL (10-30); Alanine Aminotransferase 18 IU/L (<35); Albumin 5.2 g/dL (3.5-5.0); Albumin Globulin Ratio 1.7 (1.0-2.8); Alkaline Phosphatase 59 U/L (38-126); Aspartate Aminotransferase 23 IU/L (14-36); BUN Creatinine Ratio 21.5 (6-22); Bilirubin Total 0.5 mg/dL (0.2-1.3); Blood Urea Nitrogen 26 mg/dL (7-17); Calcium 9.6 mg/dL (8.4-10.2); Carbon Dioxide 22 mmol/L (22-32); Chloride 104 mmol/L (98-107); Estimated Glomerular Filt Rate 45.1 mL/min (>60); Ethanol (ETOH) < 10 mg/dL; Glucose 218 mg/dL (80-110); HEMOLYSIS 15 (0-50); Potassium 4.8 mmol/L (3.4-5.1); Salicylate 1.1 mg/dL (<20); Sodium 143 mmol/L (137-145); Total Protein 8.2 g/dL (6.3-8.2)
[2020-03-16 02:30] LABS: Prothrombin Time 11.1 SECONDS (10.1-12.7)
[2020-03-16 02:32] LABS: Bacteria Urine None Seen
[2020-03-16 02:33] LABS: PTT Partial Thromboplastin Tim 26 SECONDS (26.4-36.2)
[2020-03-16 02:33] LABS: Appearance Urine UA CLEAR; Bilirubin Urine UA NEGATIVE (NEGATIVE); Color Urine UA YELLOW; Glucose Urine UA TRACE g/dL (Negative); Ketones Urine UA TRACE (NEGATIVE); Leukocyte Esterase Urine UA NEGATIVE (NEGATIVE); Nitrite Urine UA NEGATIVE (Negative); Occult Blood Urine UA TRACE-LYSED (Negative); Protein Urine UA 2+ (Negative); Urobilinogen Urine UA 0.2 E.U./dL (0.2)
[2020-03-16 02:34] LABS: Lactate (Lactic Acid) 2.9 mmol/L (0.7-2.1)
[2020-03-16 02:36] LABS: Procalcitonin < 0.05 ng/mL (<0.5)
[2020-03-16 02:37] LABS: Prolactin 14.9 ng/mL (3.0-18.6)
[2020-03-16 02:42] LABS: UR Morphine/Opiate cutoff 300 Positive (Negative); Ur Creatinine 20 (Normal); Urine Amphetamines Negative (Negative); Urine Barbiturates Negative (Negative); Urine Benzodiazepines Negative (Negative); Urine Cocaine Negative (Negative); Urine MDMA Negative (Negative); Urine Methadone Negative (Negative); Urine Methamphetamines Negative (Negative); Urine Oxycodone Negative (Negative); Urine Phencyclidine Negative (Negative); Urine Tetrahydrocannabinol Positive (Negative); Urine Tricyclic Antidepressant Positive (Negative); Urine pH 5 (Normal)
[2020-03-16 02:50] LABS: D Dimer 226 ng/mL (<230)
[2020-03-16 03:02] LABS: C-Reactive Protein Quant < 0.5 mg/dL (<1.0)
[2020-03-16 03:06] LABS: Thyroid Stimulating Hormone 1.36 uIU/mL (0.47-4.68)
[2020-03-16 03:14] LABS: Culture Indicated Urine Cult Not Indicated; Granular Casts Urine 0-1/LPF; RBC Urine 0-1/HPF (0-5/HPF); WBC Urine 1-5/HPF (0-5/HPF)
[2020-03-16 04:19] LABS: Reflexed Lactate in 2 Hours Y
--- NOTE | 2020-03-16 04:26 | DI.CT.S_ITS ---
PROCEDURE: CT HEAD/BRAIN WO CON INDICATIONS: altered mental status TECHNIQUE: Noncontrast 4.5 mm thick angled axial sections acquired from the foramen magnum to the vertex, with coronal and sagittal reformats. For radiation dose reduction, the following was used: automated exposure control, adjustment of mA and/or kV according to patient size. COMPARISON: [facility], CT, CT HEAD/BRAIN WO CON, 12/08/2019, 9:37. [facility], CT, CT HEAD/BRAIN WO CON, 10/23/2019, 12:24. FINDINGS: Image quality: Somewhat compromised by patient's inability to cooperate with the examination. Patient motion.. CSF spaces: Basal cisterns are patent. No extra-axial fluid collections. Ventricles are normal in size and shape. Brain: No midline shift. No intracranial masses or hemorrhage. Landers-white matter interface is normal. Again noted is a small lipoma in centered just to the left of midline dorsal to the superior margin of the abram, within the cerebellum. Skull and face: Calvarium and visualized facial bones are intact, without suspicious lesions. Sinuses: Visualized sinuses and mastoids are clear. IMPRESSION: Stable over time, study is somewhat limited by persistent patient motion during image acquisition and a source of altered mental status is not seen. Dictated by: Peña Delatorre M.D. on 03/16/2020 at 8:11 Approved by: Peña Delatorre M.D. on 03/16/2020 at 8:13
--- NOTE | 2020-03-16 04:26 | DI.CT.S_ITS ---
PROCEDURE: CT CHEST WO CON INDICATIONS: mental status change, hypoxia TECHNIQUE: Noncontrast 5 mm thick sections acquired from the pulmonary apices to the posterior costophrenic angles. 1 mm lung window, 5 mm thick coronal and sagittal and 7 mm axial MIP reformats were then acquired. For radiation dose reduction, the following was used: automated exposure control, adjustment of mA and/or kV according to patient size. COMPARISON: None. FINDINGS: Image quality: Somewhat reduced in quality by patient motion during image acquisition. Altered mental status, patient was combative.. Lungs and pleura: No acute air space opacities. No pleural effusions or pneumothorax. Central and peripheral airways are patent and normal in caliber. Mediastinum: Heart size is normal. No pericardial effusion. No mediastinal adenopathy by size criteria. Thoracic aorta and central pulmonary arteries are normal in size. Esophagus is normal in caliber. No hiatal hernia. Bones and chest wall: No suspicious bony lesions. No vertebral body compression fractures. No axillary or supraclavicular adenopathy by size criteria. Thyroid gland is not well-seen. Abdomen: Visualized upper abdominal solid organs and bowel loops appear normal in the absence of contrast. IMPRESSION: Limited evaluation due to patient motion during image acquisition and inability to fully cooperate with the examination including breath holding. No acute disease found, source of current altered mental status is not seen. Note: These findings are concordant with the preliminary interpretation. Dictated by: Peña Delatorre M.D. on 03/16/2020 at 8:15 Approved by: Peña Delatorre M.D. on 03/16/2020 at 8:17
[2020-03-16] MEDS: levoFLOXacin 750 MG/150 ML PIGGYBACK 100 MG IV (06:49)
--- NOTE | 2020-03-16 06:50 | PM.HP.1 ---
History of Present Illness History of Present Illness Date Patient Seen: 03/16/20 Time Patient Seen: 06:50 Chief complaint: Decreased LOC Narrative: Ms. Lorenzo Farias is a 64-year-old female with a history significant for type 2 diabetes with peripheral neuropathy, CAD, DC, asthma, hypertension, hyperlipidemia, chronic pain with fibromyalgia and foraminal stenosis to the lumbar sacral area was brought into the ER by her who reports 2 days of worsening mental status. There has been no change in the patient's medications or complaints of fevers or chills or sick contacts. Patient is not had any falls trauma or head injuries. Upon arrival EMS at the patient's home is reported the patient's initial pulse ox was in the 70s to low 80s. The patient is unable to participate in subjective analysis. The patient will make eye contact but it is nonverbal and will not follow commands and does respond to noxious stimulus. There has been no reports per the of headaches or dizziness, chest pain, shortness of breath or cough. She has reported no abdominal pain has not been nauseated or vomited. To the best of his knowledge she has had no change in bowel or bladder habits. Upon arrival to the ER the patient is afebrile with temperature 98.4?, heart rate of 72, hypertensive 192/81, respiratory rate of 22 saturating 96% on [address] of oxygen[address] A [address] scan is obtained of the head which finds no acute intracranial pathology, identify small lipoma in the basal cistern. A CT with contrast finds no acute abnormal findings, identifies vascular atherosclerosis. Chest x-ray is unremarkable. On laboratory analysis the patient has an elevated white count 17.5, hemoglobin of 13.0, hematocrit of 40.2 and platelets of 310. On coagulation has a PT of 11.1, INR 1.0 PTT of 26. Her electrolytes within normal range with a sodium of 143, potassium of 4.8. Chloride is 104 with a CO of 22. BUN is 26 with a creatinine of 1.21 blood sugars 218. A D-dimer is assessed at 226. ABG finds pH 7.37, pCO2 of 39, PO2 of 80, bicarb 23 with a base excess of -3 on 50% FiO2. At that time the PF ratio was of 160. Lactic acid is 2.9 procalcitonin is 0.05, CRP is less than 0.05. Urinalysis finds trace ketones, trace glucose and is negative for nitrites and leukocyte esterase or WBCs and has 2+ protein. On tox screen she is positive for opiates which she is prescribed positive for tricyclic antidepressants uses for sleep and marijuana and is negative for Tylenol. The patient is admitted to medicine service for acute alteration mental status of unclear etiology with acute respiratory failure with hypoxia and acute kidney injury. Patient History Medical History Back pain (Chronic 03/19/14) CAD (coronary atherosclerotic disease) (Chronic ~1998) Diabetic peripheral neuropathy (Chronic 11/10/15) Fibromyalgia (Chronic 03/12/17) Foraminal stenosis of lumbosacral region (Chronic) GERD (gastroesophageal reflux disease) (Chronic) Herniated disc (Acute) Hypertension (Chronic) Mixed hyperlipidemia (Chronic) Myocardial infarction (Acute ~1998) Recurrent major depressive disorder, in full remission (Chronic) Type 2 diabetes mellitus with hyperglycemia (Chronic) Type 2 diabetes mellitus without complication (Chronic) Unspecified asthma (Chronic) Surgical History 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) Status post appendectomy Surgical procedure planned (Resolved) Family & Social History Family History Sister Family history of diabetes mellitus (DM) Family history unavailable: Yes (No family or social history is available due to patient's altered mentation) Social History: household members spouse lives independently Yes caregiver/support person No Tobacco & Substance use: Smoking Status Former smoker alcohol intake never Substance Use Type marijuana Meds Home Medications and Allergies Home Medications Medication Instructions Recorded Confirmed Type Homeopathic Substance (ALLERGY) 1 tab SUBLINGUAL DIRECTED #0 01/09/12 12/28/19 History aspirin 81 mg tablet,delayed 81 mg PO DAILY 05/02/18 12/28/19 History release Glucose: Test Strips #100 each 04/14/19 12/28/19 Rx albuterol sulfate [Proventil HFA] 1 puff IH PRN PRN 06/05/19 12/28/19 History tramadol 50 mg tablet 50 mg PO TID PRN #60 tab 08/17/19 12/28/19 Rx gabapentin 600 mg tablet 600 mg PO TID #120 tab 08/24/19 12/28/19 Rx atorvastatin 40 mg PO QPM 10/23/19 12/28/19 History diclofenac sodium 50 mg PO BID PRN 10/23/19 12/28/19 History estradiol 1 mg PO DAILY 10/23/19 12/28/19 History Disabled Parking #1 each 10/30/19 12/28/19 Rx fluticasone propionate 2 spray INTRANASAL PRN PRN 12/08/19 12/28/19 History lisinopril 10 mg PO DAILY 12/08/19 12/28/19 History medroxyprogesterone 10 mg PO DAILY 12/08/19 12/28/19 History melatonin 5 mg PO BEDTIME PRN 12/08/19 12/28/19 History glipizide 5 mg tablet 5 mg PO BID #60 tab 12/28/19 12/28/19 Rx metformin 1,000 mg tablet 1,000 mg PO BID #180 tab 12/28/19 12/28/19 Rx duloxetine 30 mg capsule,delayed 30 mg PO BID #180 cap 01/29/20 Rx release cyclobenzaprine 10 mg tablet 10 mg PO TID PRN #60 tab 02/08/20 Rx zolpidem 10 mg tablet 10 mg PO BEDTIME #30 tab 02/08/20 Rx atenolol 25 mg tablet 25 mg PO DAILY #90 tab 02/24/20 Rx tamsulosin 0.4 mg capsule 0.4 mg PO DAILY #90 cap 02/25/20 Rx hydrocodone 7.5 mg-acetaminophen 1 - 2 tab PO Q4HP PRN #90 tab 02/26/20 Rx 325 mg tablet Allergies Allergy/AdvReac Type Severity Reaction Status Date / Time banana [BANANA] Allergy Unknown Verified 12/28/19 09:58 Review of Systems Review of Systems ROS: Yes unobtainable due to mental condition Exam Vital Signs (past 8 hours): - 03/16/20 01:26 03/16/20 04:00 03/16/20 04:55 Temperature 98.4 F Pulse Rate 72 67 77 Respiratory Rate 22 26 H 28 H Blood Pressure 192/81 H Blood Pressure [Right Arm] 140/63 122/89 Pulse Oximetry 96 98 98 Oxygen Delivery Method Room Air Oxygen Flow Rate 7 Narrative Exam Narrative: GENERAL APPEARANCE: well developed, well nourished, restless and nonverbal now breathing on room air with adequate saturation HEENT: Normocephalic, PERRLA midpoint and sluggish, conjunctiva clear, eyes will track bilateral, no rhinorrhea, mucous membranes are dry and pink. NECK/THYROID: neck supple, no JVD, no thyromegaly, trachea midline. LYMPH NODES: no cervical or supraclavicular lymphadenopathy. SKIN: [place], warm and dry, no visible lesions, rashes, ulcerations or petechiae. HEART: regular rate and rhythm, S1-S2, no murmur, no rubs or gallops, brisk capillary refill, no edema LUNGS: clear to auscultation bilaterally with shallow inspiratory quality, no coarseness crackles or wheezing, no cough present CHEST: Symmetrical movement, no accessory muscle use, shallow tidal volume. ABDOMEN: Soft, dull to percussion, no response to deep palpation of left lower quadrant, no guarding or peritoneal signs, no organomegaly, no grimaces to flank or suprapubic palpation, hypoactive bowel tones. EXTREMITIES: moves all extremities, strength is 5/5 and symmetrical, no deformities or joint effusions. NEUROLOGIC: Awake, eyes open but nonverbal will not follow commands, GCS 10, will nod head yes to requested squeeze hands or lift head. Objective Labs Result Diagrams: 03/16/20 00:15 03/16/20 01:55 Labs: Laboratory Results - last 24 hr 03/16/20 03/16/20 03/16/20 00:15 01:53 01:55 WBC 17.5 H RBC 4.54 Hgb 13.0 Hct 40.2 MCV 88.6 MCH 28.6 MCHC 32.3 RDW 13.0 Plt Count 310 Neut % (Auto) 78.9 H Lymph % (Auto) 16.4 L [place] % (Auto) 4.0 Eos % (Auto) 0.3 L Baso % (Auto) 0.4 Neut # (Auto) 10693 H Lymph # (Auto) 2900 [place] # (Auto) 700 Eos # (Auto) 0 Baso # (Auto) 100 PT INR APTT D-Dimer ABG pH 7.37 ABG pCO2 39.0 ABG pO2 80 ABG HCO3 23 ABG Total CO2 24 ABG O2 Saturation 95 ABG Base Excess -3.0 L FiO2 0.50 Sodium Potassium Chloride Carbon Dioxide BUN Creatinine Estimated GFR BUN/Creatinine Ratio Glucose Lactate Calcium Total Bilirubin AST ALT Alkaline Phosphatase C-Reactive Protein Total Protein Albumin Globulin Albumin/Globulin Ratio Procalcitonin < 0.05 TSH Prolactin Urine Color Urine Appearance Urine pH Ur Specific [place] Urine Protein Urine Glucose (UA) Urine Ketones Urine Occult Blood Urine Nitrate Urine Bilirubin Urine Urobilinogen Ur Leukocyte Esterase Urine RBC Urine WBC Urine Bacteria Granular Casts Ur Culture Indicated? Salicylates U Opiates 300ng/mL cut Ur Oxycodone Screen Urine Methadone Screen Acetaminophen Ur Barbiturates Screen U Tricyclic Antidepress Ur Phencyclidine Scrn Ur Amphetamines Screen U Methamphetamines Scrn Ur MDMA Scrn (Ecstasy) U Benzodiazepines Scrn Urine Cocaine Screen U Marijuana (THC) Screen Ethyl Alcohol 03/16/20 03/16/20 03/16/20 01:55 01:55 01:55 WBC RBC Hgb Hct MCV MCH MCHC RDW Plt Count Neut % (Auto) Lymph % (Auto) [place] % (Auto) Eos % (Auto) Baso % (Auto) Neut # (Auto) Lymph # (Auto) [place] # (Auto) Eos # (Auto) Baso # (Auto) PT INR APTT D-Dimer ABG pH ABG pCO2 ABG pO2 ABG HCO3 ABG Total CO2 ABG O2 Saturation ABG Base Excess FiO2 Sodium 143 Potassium 4.8 Chloride 104 Carbon Dioxide 22 BUN 26 H Creatinine 1.21 H Estimated GFR 45.1 L BUN/Creatinine Ratio 21.5 Glucose 218 H Lactate Calcium 9.6 Total Bilirubin 0.5 AST 23 ALT 18 Alkaline Phosphatase 59 C-Reactive Protein < 0.5 Total Protein 8.2 Albumin 5.2 H Globulin 3.0 Albumin/Globulin Ratio 1.7 Procalcitonin TSH 1.36 Prolactin 14.9 Urine Color Urine Appearance Urine pH Ur Specific [place] Urine Protein Urine Glucose (UA) Urine Ketones Urine Occult Blood Urine Nitrate Urine Bilirubin Urine Urobilinogen Ur Leukocyte Esterase Urine RBC Urine WBC Urine Bacteria Granular Casts Ur Culture Indicated? Salicylates 1.1 U Opiates 300ng/mL cut Ur Oxycodone Screen Urine Methadone Screen Acetaminophen < 10 L Ur Barbiturates Screen U Tricyclic Antidepress Ur Phencyclidine Scrn Ur Amphetamines Screen U Methamphetamines Scrn Ur MDMA Scrn (Ecstasy) U Benzodiazepines Scrn Urine Cocaine Screen U Marijuana (THC) Screen Ethyl Alcohol < 10 03/16/20 03/16/20 03/16/20 02:00 02:00 02:10 WBC RBC Hgb Hct MCV MCH MCHC RDW Plt Count Neut % (Auto) Lymph % (Auto) [place] % (Auto) Eos % (Auto) Baso % (Auto) Neut # (Auto) Lymph # (Auto) [place] # (Auto) Eos # (Auto) Baso # (Auto) PT INR APTT D-Dimer 226 ABG pH ABG pCO2 ABG pO2 ABG HCO3 ABG Total CO2 ABG O2 Saturation ABG Base Excess FiO2 Sodium Potassium Chloride Carbon Dioxide BUN Creatinine Estimated GFR BUN/Creatinine Ratio Glucose Lactate Calcium Total Bilirubin AST ALT Alkaline Phosphatase C-Reactive Protein Total Protein Albumin Globulin Albumin/Globulin Ratio Procalcitonin TSH Prolactin Urine Color Yellow Urine Appearance Clear Urine pH 5.0 Ur Specific [place] 1.020 Urine Protein 2+ H Urine Glucose (UA) Trace H Urine Ketones Trace H Urine Occult Blood Trace-lysed Urine Nitrate Negative Urine Bilirubin Negative Urine Urobilinogen 0.2 Ur Leukocyte Esterase Negative Urine RBC 0-1/hpf Urine WBC 1-5/hpf Urine Bacteria None seen Granular Casts 0-1/lpf Ur Culture Indicated? Cult not indicated Salicylates U Opiates 300ng/mL cut Positive H Ur Oxycodone Screen Negative Urine Methadone Screen Negative Acetaminophen Ur Barbiturates Screen Negative U Tricyclic Antidepress Positive H Ur Phencyclidine Scrn Negative Ur Amphetamines Screen Negative U Methamphetamines Scrn Negative Ur MDMA Scrn (Ecstasy) Negative U Benzodiazepines Scrn Negative Urine Cocaine Screen Negative U Marijuana (THC) Screen Positive H Ethyl Alcohol 03/16/20 03/16/20 02:10 02:10 WBC RBC Hgb Hct MCV MCH MCHC RDW Plt Count Neut % (Auto) Lymph % (Auto) [place] % (Auto) Eos % (Auto) Baso % (Auto) Neut # (Auto) Lymph # (Auto) [place] # (Auto) Eos # (Auto) Baso # (Auto) PT 11.1 INR 1.0 APTT 26 L D D-Dimer ABG pH ABG pCO2 ABG pO2 ABG HCO3 ABG Total CO2 ABG O2 Saturation ABG Base Excess FiO2 Sodium Potassium Chloride Carbon Dioxide BUN Creatinine Estimated GFR BUN/Creatinine Ratio Glucose Lactate 2.9 H Calcium Total Bilirubin AST ALT Alkaline Phosphatase C-Reactive Protein Total Protein Albumin Globulin Albumin/Globulin Ratio Procalcitonin TSH Prolactin Urine Color Urine Appearance Urine pH Ur Specific [place] Urine Protein Urine Glucose (UA) Urine Ketones Urine Occult Blood Urine Nitrate Urine Bilirubin Urine Urobilinogen Ur Leukocyte Esterase Urine RBC Urine WBC Urine Bacteria Granular Casts Ur Culture Indicated? Salicylates U Opiates 300ng/mL cut Ur Oxycodone Screen Urine Methadone Screen Acetaminophen Ur Barbiturates Screen U Tricyclic Antidepress Ur Phencyclidine Scrn Ur Amphetamines Screen U Methamphetamines Scrn Ur MDMA Scrn (Ecstasy) U Benzodiazepines Scrn Urine Cocaine Screen U Marijuana (THC) Screen Ethyl Alcohol Assessment & Plan Assessment & Plan narrative: This is a 64-year-old female patient presents to the ER with 2 days of decreasing mentation initially found to be hypoxemic upon arrival EMS. The patient is nonverbal and unable to provide history or information and is found to a metabolic acidosis, acute kidney injury and hyperglycemia. 1. Metabolic encephalopathy, present on admission, active -patient is somnolent upon arrival per report from emergency room provider. At time of examination the patient has a GCS at 10 without spontaneous eye opening, spontaneous movement and is nonverbal. The patient will not respond to questions or follow commands. -multiple possible etiologies including: Infection-patient with a white count of 17.5 with unclear source, patient is afebrile. Acute dehydration-patient with elevated lactic acid at 2.9, anion gap of 17 and acute kidney injury with elevation creatinine and elevated BUN. Toxic effect of medication-patient is prescribed gabapentin 600 mg 3 times daily which may lead to toxic levels with reduced renal clearance. Medication misuse-The patient is prescribed [place] 7.5/325 1-2 tabs every 4 hours as needed. Urine tox screen is positive for opiates and tricyclics both prescribed medications as well as marijuana, unknown last use. 2. Acute respiratory failure with hypoxemia, present on admission, active. -patient has a history of asthma without reports of shortness of breath. EMS found the patient hypoxemic in the field with saturations in the 70s to low 80s, patient is documented to be at 96% on 7 L of oxygen upon arrival in the ER. On assessment the patient has shallow respirations without wheezing coarseness or crackles. -arterial blood gas finds a pH of 7.37, pCO2 39, PO2 is 80, bicarbonate of 23 with a base excess of -3 on 50% FiO2. PF ratio was 160. The patient is improving with oxygen 99% on 7L O2. D-dimer is negative at 226. -CT of the chest finds no acute abnormalities and identifies vascular atherosclerosis. -Respiratory therapy to consult evaluate and treat, supplemental oxygen as needed. 3. Leukocytosis, unknown etiology, present on admission, active. -no locus of infection is identified, patient is afebrile, urinalysis shows no infection, CT of the chest is negative physical exam is benign. -WBCs are 17.5, procalcitonin is less than 0.05, CRP is less than 0.05. -will obtain an abdominal CT. -will recheck CBC and procalcitonin at 9:00 a.m. 4. Metabolic and acidosis secondary to dehydration, present on admission, active -patient has trace urine ketones, lactate of 2.9, anion gap of 17 with dry mucous membranes -patient with poor vascular access, patient to restless for placement of a central line, midline catheter is placed. -patient received saline bolus in the ER will continue IV normal saline at 150 cc/hour. -will follow chemistries and lactic acid. Number Acute kidney injury, secondary to dehydration, present on admission, active -patient with a creatinine of 1.21 on admission, previous baseline from 02/03/2020 was 0.87. -urinalysis with 2+ protein, EGFR is 45.1 and calculated creatinine clearance is 47.18. -patient has been taking gabapentin 600 mg 3 times daily, patient likely toxic on gabapentin dosing in the setting of renal failure, dose is reduced to 300 mg twice daily. -patient's rehydrated with normal saline 150 cc/hour. 6. Diabetes type 2 with neuropathy, present on admission, active -patient hyperglycemic with a glucose of 218 on admission labs. Most recent A1c in January of 2020 was 7.2. -patient typically takes glipizide and metformin for glycemic management which are held. -patient is NPO due to altered mental status. -will obtain fingerstick glucose every 6 hours and cover with low-dose correctional insulin. -will obtain a magnesium and phosphorus and recheck BMP at 9:00 a.m. 7. Chronic pain, present on admission, stable -patient is prescribed [place] 7.5/325 which is held related to altered mental status -patient is prescribed gabapentin 600 mg 3 times per day which is reduced for renal dosing to 300 mg twice daily as possible cause from altered mental status. -patient takes tramadol 50 mg 3 times daily as needed for pain which will be continued when patient is taking PO's. 8. Hypertension, present on admission, active -patient has elevated blood pressure upon arrival at 192/81 and continues remain hypertensive at 174/77. -ordered labetalol 10 mg IV as needed for systolic blood pressure greater than 180 or diastolic pressure greater than 100 sustained for greater than 20 minutes. Isolation: Droplet, COVID-19 screening VTE prophylaxis: SCDs and heparin IV fluid: Normal saline 150 cc/hour Diet: NPO Code status: Full code to be reviewed when patient is responsive. The patient is admitted to the hospital for metabolic encephalopathy and leukocytosis of unknown etiologies. Patient is admitted as observation while ongoing further investigation of monitoring. The patient is expected length stay is less than 2 midnights. COVID-19 COVID-19 status: Result pending Scores GCS [place] coma scale eye opening: Spontaneous [place] coma scale verbal response: None [place] coma scale motor response: Localising C[place] coma scale total score: 10
[2020-03-16 06:56] LABS: Creatine Kinase 93 U/L (30-135); Lactate 2HR (Lactic Acid Rflx) 1.5 mmol/L (0.7-2.1); Lactate Dehydrogenase 399 U/L (313-618)
[2020-03-16 07:03] LABS: Ammonia (NH3) < 9 umol/L (9-30)
[2020-03-16 07:08] LABS: Troponin I < 0.012 ng/mL (0.01-0.034)
[2020-03-16] MEDS: SODIUM CHLORIDE 0.9% 1,860 ML 620 ML IV (07:14)
--- NOTE | 2020-03-16 07:21 | PC.NURSE ---
Pt had PICC line placed by PICC RN
--- NOTE | 2020-03-16 07:32 | PC.NURSE ---
SHALINI Dey [phone] can be reached at any time for questions or updates.
[2020-03-16 07:33] LABS: Ferritin 6 ng/mL (11-264)
[2020-03-16 08:36] LABS: Add Manual Diff / Slide Review NO; Basophils Absolute Auto 0 /uL (0-100); Basophils Percent Auto 0.1 % (0-2); Eosinophils Absolute Auto 0 /uL (0-450); Hemoglobin 10.3 g/dL (12.0-16.0); Lymphocytes Absolute Auto 1600 /uL (1100-4500); Mean Corpuscular HGB Conc 33.1 % (30-36); Mean Corpuscular Hemoglobin 29.3 PG (26-34); Mean Corpuscular Volume 88.3 fL (80-100); Monocytes Absolute Auto 600 /uL (0-900); Neutrophils Absolute Auto 12600 /uL (1500-7000); Neutrophils Percent Auto 84.9 % (50-75); Platelet Count 268 X10^3/uL (150-400); Red Blood Cell Count 3.51 X10^6/uL (4.0-5.2); Red Cell Distribution Width 12.9 % (11.6-14.8); White Blood Cell Count 14.9 X10^3/uL (4.5-11.0)
[2020-03-16 08:44] LABS: BUN Creatinine Ratio 27.8 (6-22); Blood Urea Nitrogen 25 mg/dL (7-17); Calcium 7.9 mg/dL (8.4-10.2); Carbon Dioxide 23 mmol/L (22-32); Chloride 107 mmol/L (98-107); Estimated Glomerular Filt Rate > 60.0 mL/min (>60); Glucose 210 mg/dL (80-110); HEMOLYSIS < 15 (0-50); Sodium 142 mmol/L (137-145)
[2020-03-16 08:45] LABS: Phosphorous 4.2 mg/dL (2.8-4.1)
[2020-03-16 08:59] LABS: Procalcitonin < 0.05 ng/mL (<0.5)
--- NOTE | 2020-03-16 09:23 | PC.ADMIT ---
[email or web address] Arcenio Lema Admission Note: The patient,Lorenzo Yarbrough,64 y/o, was given written information regarding hospital policies, unit procedures and contact persons. Patient's smoking status: Former smoker. Vital Signs - 8 hr 03/16/20 01:26 03/16/20 04:00 03/16/20 04:55 Temperature 98.4 F Pulse Rate 72 67 77 Respiratory Rate 22 26 H 28 H Blood Pressure 192/81 H Blood Pressure [Right Arm] 140/63 122/89 Pulse Oximetry 96 98 98 03/16/20 06:58 03/16/20 08:42 Temperature 98.5 F Pulse Rate 60 61 Respiratory Rate 35 H 24 Blood Pressure 154/81 H Blood Pressure [Right Arm] 174/77 H Pulse Oximetry 99 96 Rec'd pt from ED to 228 at 0755. Pt is awake/alert and following commands. She is able to scoot herself from stretcher to bed. She is stating yes/no intermittently as well as saying a few other words with clear speech. Orientation is difficult to assess due to pt only saying a few words. She is nodding yes/no seemingly appropriately. She is also making frequent position changes with impulsive movements and picking at bedding/lines/cords. Asked pt if she needed to urinate. She nods yes. Attempted bed leigh without success. Assisted up to BSC with 2PA. Pt is unsteady and requiring a lot of cues. She is unable to urinate. Bladder scan performed showing 266 ML in. Pt is guarding belly and demonstrates wincing with bladder palpation. Bladder does not feel distended. Pt nods head yes that she has had pain with urination recently. She shakes head no when asked if urine has been cloudy or had foul odor. Provided reorientation and educated to plan of care, fall risk, use of call light. Instructed pt to wait for assistance before getting OOB. Pt nods head in understanding but is frequently attempting to get OOB unassisted. Bed alarm on, bed locked/low, BR x3, and curtain open for direct visualization. No family available for assistance with admission assessment or med rec. Will attempt to call when able.
--- NOTE | 2020-03-16 09:58 | DI.CT.S_ITS ---
PROCEDURE: CT ABDOMEN PELVIS W CON INDICATIONS: AMS, leukocytosis, hypoactive BS TECHNIQUE: After the administration of oral and intravenous contrast, 5 mm thick sections acquired from the diaphragms to the symphysis. 5 mm thick coronal and sagittal reformats were performed. For radiation dose reduction, the following was used: automated exposure control, adjustment of mA and/or kV according to patient size. COMPARISON: None. FINDINGS: Image quality: Quality reduced secondary to patient motion despite repeat scan attempts.. ABDOMEN: Lung bases: Lung bases are clear. Heart size is normal. Very small hiatal hernia. Solid organs: Liver is normal in size and enhancement. Gallbladder is grossly normal. Biliary system is non-dilated. Pancreas enhances normally. Spleen is normal in size and enhancement. No adrenal nodules. Kidneys are normal in size and enhancement, without hydronephrosis. Peritoneum and bowel: No gross bowel obstruction. The bowel was suboptimally evaluated secondary to patient motion. The distal colon is decompressed. No significant quantity of dependent intraperitoneal fluid. No gross free intraperitoneal air. Nodes and vessels: No retroperitoneal or mesenteric adenopathy. Aorta and inferior vena cava are normal in caliber. Moderate abdominal aortic calcification. Miscellaneous: No ventral hernias. PELVIS: Genitourinary: The urinary bladder is fully distended. No bladder mass. Bladder wall thickness is normal. The uterus is age-appropriate, with multiple coarse calcifications, and visible ovarian tissue appears normal. Miscellaneous: No inguinal hernias or adenopathy. Bones: No suspicious bony lesions. No obvious fractures. IMPRESSION: 1. Suboptimal study secondary to patient motion. 2. No evidence of obvious acute intraperitoneal process. 3. Urinary bladder distention. Dictated by: Jaylyn Lai M.D. on 03/16/2020 at 10:25 Approved by: Jaylyn Lai M.D. on 03/16/2020 at 10:33
[2020-03-16] MEDS: HEPARIN 5,000 UNIT/ML VIAL 5000 UNIT SUBCUT ×2 (12:00→20:32)
[2020-03-16] MEDS: lisinopriL 10 MG TABLET PO (12:01)
[2020-03-16] MEDS: TAMSULOSIN 0.4 MG CAPSULE PO (12:01)
[2020-03-16] MEDS: GABAPENTIN 600 MG TABLET 300 MG PO (12:01)
[2020-03-16] MEDS: DULOXETINE 30 MG CAPSULE PO ×2 (12:01→20:26)
[2020-03-16] MEDS: INSULIN ASPART 100 UNIT/ML INSULN PEN SUBCUT (12:02)
[2020-03-16] MEDS: atenoloL 25 MG TABLET PO (12:02)
[2020-03-16] MEDS: ASPIRIN EC 81 MG TABLET PO (12:02)
--- NOTE | 2020-03-16 13:06 | PC.NURSE ---
I spoke with Dr. Bills around 1000 and reported that pt was unable to void despite multiple attempts up to the BR. Reported bladder scan volume of 266 ML. Reported that pt c/o bladder tenderness. Reported labs- specifically the Magnesium level of 1.0. Instruction received to monitor bladder volume and report volumes in excess of 300 to 400. Bladder scan done and showed 790 ML in bladder. Called to Dr. Bills and reported. Orders received to perform in/out cath x1. Performed I/O cath with 950 ML of clear/yellow urine out. No orders received for magnesium replacement.
[2020-03-16] MEDS: MAGNESIUM SULFATE 4 GM/100 ML PIGGYBACK IV (16:07)
[2020-03-16] MEDS: ONDANSETRON 4 MG/2 ML INJ IV (16:51)
[2020-03-16] MEDS: ATORVASTATIN 20 MG TABLET 40 MG PO (16:51)
[2020-03-16 18:45] LABS: COVID19 Sendout Not Detected (Not Detect)
[2020-03-16] MEDS: GABAPENTIN 600 MG TABLET PO (20:26)
[2020-03-16] MEDS: ACETAMINOPHEN 325 MG TABLET 650 MG PO (20:27)
[2020-03-16] MEDS: TRAMADOL 50 MG TABLET PO (20:31)
[2020-03-16] MEDS: MELATONIN 3 MG TABLET 6 MG PO (20:32)
[2020-03-17] VITALS (8 sets, daily range): BP systolic 102–183; BP diastolic 68–92; PULSE 74–95; RESP 16–26; TEMP 36.1–37.6; O2SAT 94–100
[2020-03-17] MEDS: SODIUM CHLORIDE 0.9% 1,000 ML 75 ML IV (00:38)
--- NOTE | 2020-03-17 03:14 | PC.NURSE ---
Addendum entered by Yamilet Maxwell R.N. 03/17/20 05:59: Pt has been speaking to her and told the DICE TABLE OPERATOR that she can hear him however, he is not here. Pt continues to yell out to staff when in need. Some of he talk in nonsensical and she struggles with word finding. Pt continues to have difficulty following directions. Original Note: NOC Note: Pt has been awake so far this shift. Yells out when she needs staff and not using the call light even after being reminded how to use it. Pt has been fixated on a neck pillow, for under her leg, that is not present. She believes that a fitted sheet that is on the counter is the pillow even after staff have shown her the sheet multiple times. Pt has been incontinent of urine. Pt states that she has a bad memory and forgets things. Pt has difficulty following directions.
[2020-03-17 08:18] LABS: Add Manual Diff / Slide Review NO; Basophils Absolute Auto 100 /uL (0-100); Basophils Percent Auto 0.5 % (0-2); Eosinophils Absolute Auto 0 /uL (0-450); Eosinophils Percent Auto 0.2 % (2-4); Hematocrit 32.3 % (36-46); Hemoglobin 10.6 g/dL (12.0-16.0); Lymphocytes Absolute Auto 3100 /uL (1100-4500); Lymphocytes Percent Auto 27.1 % (25-40); Mean Corpuscular HGB Conc 32.9 % (30-36); Mean Corpuscular Hemoglobin 29.1 PG (26-34); Mean Corpuscular Volume 88.4 fL (80-100); Monocytes Absolute Auto 700 /uL (0-900); Monocytes Percent Auto 6.1 % (3-14); Neutrophils Absolute Auto 7600 /uL (1500-7000); Neutrophils Percent Auto 66.1 % (50-75); Platelet Count 275 X10^3/uL (150-400); Red Blood Cell Count 3.65 X10^6/uL (4.0-5.2); Red Cell Distribution Width 12.9 % (11.6-14.8); White Blood Cell Count 11.5 X10^3/uL (4.5-11.0)
[2020-03-17 08:38] LABS: Alanine Aminotransferase 15 IU/L (<35); Albumin 4.2 g/dL (3.5-5.0); Albumin Globulin Ratio 1.6 (1.0-2.8); Alkaline Phosphatase 53 U/L (38-126); Aspartate Aminotransferase 24 IU/L (14-36); BUN Creatinine Ratio 14.3 (6-22); Bilirubin Total 0.4 mg/dL (0.2-1.3); Blood Urea Nitrogen 9 mg/dL (7-17); Calcium 7.9 mg/dL (8.4-10.2); Carbon Dioxide 23 mmol/L (22-32); Chloride 105 mmol/L (98-107); Estimated Glomerular Filt Rate > 60.0 mL/min (>60); Globulin 2.6 g/dL (1.7-4.1); Glucose 172 mg/dL (80-110); HEMOLYSIS < 15 (0-50); Magnesium 1.8 mg/dL (1.6-2.3); Potassium 3.4 mmol/L (3.4-5.1); Sodium 141 mmol/L (137-145); Total Protein 6.8 g/dL (6.3-8.2)
[2020-03-17 08:52] LABS: Procalcitonin < 0.05 ng/mL (<0.5)
[2020-03-17] MEDS: INSULIN ASPART 100 UNIT/ML INSULN PEN SUBCUT ×4 (08:58→20:49)
[2020-03-17] MEDS: lisinopriL 10 MG TABLET PO (09:03)
[2020-03-17] MEDS: ASPIRIN EC 81 MG TABLET PO (09:03)
[2020-03-17] MEDS: DULOXETINE 30 MG CAPSULE PO ×2 (09:03→20:49)
[2020-03-17] MEDS: GABAPENTIN 600 MG TABLET PO ×3 (09:03→20:49)
[2020-03-17] MEDS: HEPARIN 5,000 UNIT/ML VIAL 5000 UNIT SUBCUT (09:03)
[2020-03-17] MEDS: TAMSULOSIN 0.4 MG CAPSULE PO (09:03)
[2020-03-17] MEDS: atenoloL 25 MG TABLET PO (09:03)
--- NOTE | 2020-03-17 11:13 | PC.NURSE ---
Addendum entered by Alyce Smith R.N. 03/17/20 14:05: pt both incont/continent of urine- with urgency, but noticed that brief was pink in color- stool small brown softly formed but moderate amount of blood ( bright red) upon wiping her bottom. NOTIFIED Addendum entered by Alyce Smith R.N. 03/17/20 13:23: pt willing to complete mri later this shift but is concerned about her claustrophobia and involuntary movements- she will require pre-medication and orders received for same- Original Note: PT WITH SCATTERED CLEAR WORD SPEECH- SHE IS RAMBLING OFF TOPIC AND IT RUNS ON WITH THE NEXT TOPIC- SOMEWHAT NON-SENSICAL. VSS - AFEBRILE - SPOKE WITH HER SPOUSE, GLENDY ON THE PHONE AND FOLLOWING THAT CONVERSATION HE TELEPHONED STAFF AND EXPRESSED CONCERN R/T HER RAMBLING - HE SAID THAT ON SATURDAY SHE WAS MINIMALLY CONVERSIVE AND NOW RAMBLING ON- LUNGS ARE CLEAR IVF INFUSING AT 75CC/H AND BOTH INCONT/AND CONTINENT OF LARGE AMOUNTS OF URINE
--- NOTE | 2020-03-17 11:15 | OT.IP.EVAL ---
Past Medical History (Last Reviewed 03/16/20 @ 07:01 by PEPE Yousif) Back pain (Chronic 03/19/14) CAD (coronary atherosclerotic disease) (Chronic ~1998) Diabetic peripheral neuropathy (Chronic 11/10/15) Fibromyalgia (Chronic 03/12/17) Foraminal stenosis of lumbosacral region (Chronic) GERD (gastroesophageal reflux disease) (Chronic) Herniated disc (Acute) Hypertension (Chronic) Mixed hyperlipidemia (Chronic) Myocardial infarction (Acute ~1998) Recurrent major depressive disorder, in full remission (Chronic) Type 2 diabetes mellitus with hyperglycemia (Chronic) Type 2 diabetes mellitus without complication (Chronic) Unspecified asthma (Chronic) Surgical History (Last Reviewed 03/16/20 @ 07:01 by PEPE Yousif) 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 Mobility and Gait Pt states use of 4WW at home. Activities of Daily Living and IADL's Pt states completely independent with ADl's, cooks, cleans, meds, and bills. Social History Household Members spouse Living Arrangements House Number of Stairs To Enter/Railing? Pt states has one step with left hand rail and 10+ steps to the basement. M2 OT-IP Current Condition Start: 03/17/20 17:53 Freq: Status: Active Protocol: Document 03/17/20 17:53 [facility] (Rec: 03/17/20 18:37 [facility] [id number]) Occupational Therapy Current Condition Current Condition Evaluation Date 03/17/20 Treatment Diagnosis metabolic encephalopathy, hypoxia Diagnosis Onset Date 03/16/20 Weight Bearing Status Weight Bearing Status Weight Bear as Tolerated M3 OT- IP Subjective and Pain Start: 03/17/20 17:53 Freq: Status: Active Protocol: Document 03/17/20 17:53 [facility] (Rec: 03/17/20 18:37 [facility] [id number]) OT- Subjective Occupational Therapy Visit Type Type Initial Evaluation Visit Start Time 11:15 Visit Stop Time 12:11 Total Visit Minutes 56 Occupational Therapy Visit Comments Patient Comments Pt a bit confused and having difficulty to follow directions. Patient/Caregiver Goals Pt wanting to go home. OT Pain Assessment Pain When Pain Assessed At Rest Pain Present Pain Present Denied Pain M4 OT- IP ADL's Start: 03/17/20 17:53 Freq: Status: Active Protocol: Document 03/17/20 17:53 [facility] (Rec: 03/17/20 18:37 [facility] [id number]) OT [id number] Comments OT Self-Feeding Comments Not at meal time. Pt insistent that she was told not to drink the water , and reconfirmed with nursing that she is able to drink the water . OT ADL-Grooming General Evaluation Grooming Ability Standby Assistance Comments OT Grooming Comments Pt wanting to keep the no rinse shower cap on her head even though nursing aid had told her it was okay to take it off . Pt needing encouragement and able to get the shower cap off the pt. Pt able to stand by the sink with FWW to be able to brush her hair , but unable to get the snarls out from the back and wanting to go back to bed as too tired to complete the task. SBA to wash her hands and face. OT ADL-Oral Care Comments Oral Care Comments Not at this time. OT ADL-Dressing General Eval Lower Body Dressing Ability Moderate Assistance Comments OT Dressing Comments Pt needing assist to juan f socks over her feet at this time. OT ADL-Toileting Comments OT Toileting Comments Not performed at this time. OT ADL-Bathing Comments OT Bathing Comments Pt not wanting to shower at this time. M5 OT- IP IADL's Start: 03/17/20 17:53 Freq: Status: Active Protocol: Document 03/17/20 17:53 [facility] (Rec: 03/17/20 18:37 [facility] [id number]) OT-Instrumental Activities of Daily Living Home Safety Awareness Ability to Problem Solve Emergency Able to Problem Solve Situations Home Safety Comments Pt able to state to call 911 in case of a fire, not to open the door in case of a stranger, states would not give out credit card number if someone called her on the phone, and would use a plunge if the toilet were to overflow . Medication Management Medication Management Comments At this time due to her confusion would be best to have her provide supervision. Meal Preparation Meal Preparation Comments At this time due to decreased activity tolerance and balance would benefit to sit to assist with meal prep needs at this time. Cd Reactor Operator Head Cd Reactor Operator Head Caregiver Provides Assist Driving Driving Comments Pt agrees at this time will not drive. M6 OT- IP Functional Cognition Start: 03/17/20 17:53 Freq: Status: Active Protocol: Document 03/17/20 17:53 [facility] (Rec: 03/17/20 18:37 [facility] [id number]) Cognitive Factors Limiting Selfcare Function Cognitive Ability Level of Alertness Alert,Confusional State Patient Orientation Name,Date,Year,Day of Week, Place,Situation Attention Span Ability Capable of Focused Attention, Unable to Sustain Attention Ability to Follow Commands Able to Follow One Step Commands Memory Description Short Term Impaired Safety Awareness Underestimates Need for Assistance Problem Solving Ability Needs Assist to Identify Solutions Executive Function Ability Unable to Filter Distractions, Unable to Make Plans,Unable to Organize Plans,Unable to Remember Details Cognitive Tests SLUMS Pt scored 13/30 which normal score for pt would be 27/30. Pt having difficulty getting her words out and needing directions to be repeated multiple times and since therapist having to wear a face mask having a hard time hearing the directions. Pt having difficulty at times to initiate her thoughts and movements at times. Pt only able to recall 3 animals in one minute, not able to recall any of the 5 objects after time passes, pt not able to state 4 digit number backwards, and unable to draw hour hands of 10 minutes to 11 accurately and nydia as arrow from the number 11 to 2. Pt able to answer 2 out of the 4 questions after a paragraph read. Cognitive Comments Cognitive Assessment Comments At times when talking to pt, appears paranoid as and highly distracted and hearing voices outside of her room and thinking that people are talking about her. Pt having difficulty to get her words out. Pt also tends to perseverate and having a hard time switching from topic to topic. M7 OT- IP Mobility and Balance Start: 03/17/20 17:53 Freq: Status: Active Protocol: Document 03/17/20 17:53 [facility] (Rec: 03/17/20 18:37 [facility] [id number]) OT- Bed Mobility Assessment Rolling Type of Rolling Roll to Right Supine to Sit Supine to Sit Assist Standby Assistance Sit to Supine Sit to Supine Assist Contact Guard Assistance Scooting Scooting to Edge of Bed Standby Assistance OT-Transfer Assessment Sit to and From Stand Sit to and from Stand Contact Guard Assistance Transfers Transfer Ability Contact Guard Assistance Technique Transfer Destination Bed Devices Transfer Assistive Devices Gait Belt,Front Wheeled Walker Comments Mobility Comments Pt needing extra time to get up from the bed. Pt able stand with CGA with FWW, initially having pain in her left foot and then after taking a few steps able to keep her left foot flat on the floor. Pt able to walk slowly with CGA and stand at the sink with SBA, however when she got distracted by turning to the right has a loss of balance, needing WILBER to recover. OT- Gait Assessment Comments Gait Ability Comments CGA with FWW. OT- Balance Assessment Sitting Balance and Reactions Static Sitting Balance Ability Good Dynamic Sitting Balance Ability Fair Standing Balance and Reactions Static Standing Balance Ability Fair M8 OT- IP Objective Assessments Start: 03/17/20 17:53 Freq: Status: Active Protocol: Document 03/17/20 17:53 [facility] (Rec: 03/17/20 18:37 [facility] [id number]) OT Gross Range of Motion Upper Extremity Range of Motion Assessment Within Functional Limits OT Strength Upper Extremity Strength Assessment Within Functional Limits M9 OT- IP Assessment and Plan Start: 03/17/20 17:53 Freq: Status: Active Protocol: Document 03/17/20 17:53 [facility] (Rec: 03/17/20 18:37 [facility] [id number]) OT Summary Assessment and Plan Potential Rehabilitation Potential Good Analytic Complexity at Evaluation Low Summary OT Impairments Balance,Functional Cognition, Functional Mobility,Grooming, Dressing,Toileting,Bathing, Toilet Transfers,Shower Transfers Progress Towards Goals Slow Progress due to Medical Issues,Slow Progress due to Activity Tolerance,Slow Progress due to Cognition Assessment Summary Pt low complexity and main barrier are decreased short term memory, activity tolerance, balance and now needing more assist for mobility, having more difficulty getting her words out and decreased for problem solving and executive function . Pt when medically stable recommend home with and home health OT versus outpt OT pending progress to work on her functional cognition as not at baseline of being independent for ADl,IADl and driving needs. Goals Self-Feeding Goal Independent Grooming Goal Independent Dressing Goal Independent Toileting Goal Independent Bathing Goal Independent Toilet Transfer Goal Independent Shower Transfer Goal Independent Days to Meet Goals 7 Frequency of Treatment Frequency Of Treatment Once a Day Treatment Plan OT Treatment Plan ADL Training,Functional Cognition Training,Functional Mobility,Patient/Family Education,Discharge Planning Other Treatment Recommendations and Next shower, ACL Treatment Focus Discharge Recommendations OT Discharge Recommendations Home with Assistance,Home Health,Outpatient PT Home Equipment Needs to be determined Transportation Needs at Discharge Private Vehicle
--- NOTE | 2020-03-17 12:17 | CM.IDA ---
Addendum entered by GIDEON Evans 03/17/20 12:32: Dr Bills indicated in morning team rounds she wants to order OT for SLUMS to understand patient's current cognitive status. MARY LOU Original Note: Initial DCP Assessment Note: Pt is a 64 yo female, resident of [place]. Patient presents w days of decreasing mentation, found to be hypoxemic upon arrival of EMS, in addition, patient found to have metabolic acidosis, acute kidney injury and hyperglycemia, admitted observation Patient discussed in multidisciplinary rounds this morning and Dr Bills hopeful patient can be discharged back home, polypharmacy suspected for patient's metabolic encephalopathy. Dr Mascorro is assisting today and will be seeing patient Spoke w/ RN Alyce who explained spouse had called her after getting off the phone w/patient; patient was far from cognitive baseline, talking gibberish and rambling. Rounding physician will be made aware, patient may benefit from a psychiatric consult (?) medical w/u remains normal Then placed call to patient's spouse Won, introduced role. He explained that he and patient live together, patient has been indp. and active up until Saturday when she started not acting like herself and got increasingly confused. Spouse explains patient has never had an episode like this in the past. Spouse awaiting a call from the physician to learn more about medical POC; spouse expecting to bring patient home when medically cleared. DC planning team following very closely, awaiting clarification on medical POC and dispo recommendation GIDEON Evans Discharge Planning/Care Management CM Discharge Assessment Start: 03/17/20 12:15 Freq: Status: Active Protocol: Document 03/17/20 12:16 MARY LOU (Rec: 03/17/20 12:17 MARY LOU [id number]) Discharge Planning Assessment Assigned Furniture Refinisher GIDEON Rdz DPOA/Assigned Designee Name Won Yarbrough, spouse Contact Information [phone] Advance Directives? No Advance Directives on File No History Provided By Family Member Prior Living Arrangements House Household Members spouse Type of transporation used prior to Drives own vehicle admit Independent with ADL's Yes Is patient alert and oriented? Yes Barriers to Discharge Yes Comment Patient is not at her cognitive baseline at this time. Following closely for medical POC Additional Comment Unknown at this time, following closely Review Status In Process
[2020-03-17 12:39] LABS: Osmolality, Serum 304 mOsmol/kg (280-301)
--- NOTE | 2020-03-17 12:51 | DI.MRI.S_ITS ---
PROCEDURE: MR HEAD/BRAIN WO CON INDICATIONS: r/o cva TECHNIQUE: Non-contrast axial T1 spin echo, axial T2 fast spin echo, sagittal and axial FLAIR, coronal T2 fast spin echo, axial gradient echo, axial diffusion and ADC through the brain. COMPARISON: [facility], CT, CT HEAD/BRAIN WO CON, 12/08/2019, 9:37. [facility], CT, CT HEAD/BRAIN WO CON, 10/23/2019, 12:24. [facility], CT, CT HEAD/BRAIN WO CON, 03/16/2020, 4:27. FINDINGS: Image quality: Excellent. CSF spaces: Ventricles appear symmetric in size and shape. Basal cisterns are patent. No extra-axial fluid collections. Brain: There is a small area of cortical/subcortical T2 hyperintensity in the right frontal lobe consistent with late subacute or chronic infarct. No intracranial bleeds or mass effects. There is cerebral volume loss for age. There are periventricular and deep white matter chronic small vessel ischemic changes. Brainstem appears normal. Diffusion-weighted images show no acute ischemic insults. No chronic ischemic insults. Normal intravascular flow voids are present. Skull and face: Calvarial bone marrow is normal in signal. Orbits are normal. Sinuses: Sinuses and mastoids are clear. IMPRESSION: A small area of cortical/subcortical T2 hyperintensity in the right frontal lobe consistent with late subacute or chronic infarct. Dictated by: Viviana Cordova M.D. on 03/18/2020 at 10:43 Approved by: Viviana Cordova M.D. on 03/18/2020 at 10:57
--- NOTE | 2020-03-17 14:08 | PM.PN.1 ---
Subjective Subjective Date Patient Seen: 03/17/20 Interval history: This is a 64-year-old female patient presents to the ER with 2 days of decreasing mentation initially found to be hypoxemic upon arrival EMS. Patient has been alert and responsive since yesterday but has seemed confused and having difficulty processing thoughts and clearly communicating to staff. Also this afternoon was noted to have bright red blood per rectum associated with soft bowel movement. Exam Vital Signs (past 8 hours): - 03/17/20 08:00 03/17/20 09:03 03/17/20 12:00 Temperature 99.7 F H 99.7 F H Pulse Rate 84 87 Respiratory Rate 22 26 H Blood Pressure 166/83 H 166/83 H 173/92 H Pulse Oximetry 100 97 Oxygen Delivery Method Room Air Oxygen Flow Rate 0 Narrative Exam Narrative: General: Alert, appears comfortable Lungs: Clear to auscultation Heart: Regular rhythm Abdomen: Soft Extremities: No edema Neurological: Oriented x3, affect appears normal, confused with difficulty processing Objective Labs Result Diagrams: 03/17/20 08:10 03/17/20 08:10 Labs: Laboratory Results - last 24 hr 03/16/20 03/16/20 03/16/20 01:52 02:28 09:46 WBC RBC Hgb Hct MCV MCH MCHC RDW Plt Count Neut % (Auto) Lymph % (Auto) Nuckolls % (Auto) Eos % (Auto) Baso % (Auto) Neut # (Auto) Lymph # (Auto) Nuckolls # (Auto) Eos # (Auto) Baso # (Auto) ABG pH 7.37 ABG pCO2 39.0 ABG pO2 80 ABG HCO3 23 ABG Total CO2 24 ABG O2 Saturation 95 ABG Base Excess -3.0 L FiO2 0.50 Sodium Potassium Chloride Carbon Dioxide BUN Creatinine Estimated GFR BUN/Creatinine Ratio Glucose Serum Osmolality 304 H Calcium Magnesium Total Bilirubin AST ALT Alkaline Phosphatase Total Protein Albumin Globulin Albumin/Globulin Ratio Procalcitonin COVID-19 PCR Not detected 03/17/20 03/17/20 03/17/20 08:10 08:10 08:10 WBC 11.5 H RBC 3.65 L Hgb 10.6 L Hct 32.3 L MCV 88.4 MCH 29.1 MCHC 32.9 RDW 12.9 Plt Count 275 Neut % (Auto) 66.1 Lymph % (Auto) 27.1 Nuckolls % (Auto) 6.1 Eos % (Auto) 0.2 L Baso % (Auto) 0.5 Neut # (Auto) 7600 H Lymph # (Auto) 3100 Nuckolls # (Auto) 700 Eos # (Auto) 0 Baso # (Auto) 100 ABG pH ABG pCO2 ABG pO2 ABG HCO3 ABG Total CO2 ABG O2 Saturation ABG Base Excess FiO2 Sodium 141 Potassium 3.4 Chloride 105 Carbon Dioxide 23 BUN 9 Creatinine 0.63 Estimated GFR > 60.0 BUN/Creatinine Ratio 14.3 Glucose 172 H Serum Osmolality Calcium 7.9 L Magnesium 1.8 Total Bilirubin 0.4 AST 24 ALT 15 Alkaline Phosphatase 53 Total Protein 6.8 Albumin 4.2 Globulin 2.6 Albumin/Globulin Ratio 1.6 Procalcitonin < 0.05 COVID-19 PCR Assessment & Plan Assessment & Plan narrative: This is a 64-year-old female patient presents to the ER with 2 days of decreasing mentation initially found to be hypoxemic upon arrival EMS. 1. 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 and then the day prior to admission she was much more sleepy, incoherent, and threw up about 6 times when was able to briefly wake her up -per phone conversation with he states she has baseline memory impairment with difficulties with word finding and having to stop in mid conversation but otherwise independent in ADLs including driving, shopping etcetera, patient manages own medications -OT evaluation 03/17 slums score 13/30 although patient not currently at baseline so unclear if she has true dementia vs mild cognitive impairment -Urine tox screen is positive for opiates and tricyclics both prescribed medications as well as marijuana, unknown last use. -multiple possible etiologies including: Drug toxicity related, patient on multiple psychoactive drugs including hydrocodone, zolpidem, gabapentin, cyclobenzaprine, tramadol Infection unlikely-patient afebrile, initial reactive WBC 17.5 with procalcitonin 0.05 x2, and WBC improving on its own Acute dehydration-patient with elevated lactic acid at 2.9, anion gap of 17 and acute kidney injury with elevation creatinine and elevated BUN/Cr -obtain brain MRI rule out CVA -continue OT and PT evaluations 2. Acute respiratory failure with hypoxemia, present on admission, resolved -patient has a history of asthma without reports of shortness of breath. EMS found the patient hypoxemic in the field with saturations in the 70s to low 80s, patient is documented to be at 96% on 7 L of oxygen upon arrival in the ER. On assessment the patient has shallow respirations without wheezing coarseness or crackles. -arterial blood gas finds a pH of 7.37, pCO2 39, PO2 is 80, bicarbonate of 23 with a base excess of -3 on 50% FiO2. PF ratio was 160. D-dimer was negative at 226. -CT of the chest finds no acute abnormalities and identifies vascular atherosclerosis. 3. Leukocytosis, reactive, present on admission, improving -no locus of infection is identified, patient is afebrile, urinalysis shows no infection, CT of the chest is negative physical exam is benign. -WBC trending down, procalcitonin is less than 0.05, CRP is less than 0.05. -abdominal CT unremarkable 4. Metabolic and acidosis secondary to dehydration, present on admission, resolved -patient had trace urine ketones, lactate of 2.9, anion gap of 17 with dry mucous membranes -patient with poor vascular access, patient to restless for placement of a central line, midline catheter is placed. -continue IV hydration 1 more day 5. Acute kidney injury, secondary to dehydration, present on admission, resolved -patient with a creatinine of 1.21 on admission, Last creatinine 0.63, previous baseline from 02/03/2020 was 0.87. -urinalysis with 2+ protein, EGFR is 45.1 and calculated creatinine clearance is 47.18. 6. Diabetes type 2 with neuropathy, present on admission, active -patient hyperglycemic with a glucose of 218 on admission labs. Most recent A1c in January of 2020 was 7.2. -patient typically takes glipizide and metformin for glycemic management which are held. -continue sliding scale insulin, ADA diet 7. Chronic pain, present on admission, stable -patient is prescribed [place] 7.5/325 which is held related to altered mental status -patient is prescribed gabapentin 600 mg 3 times per day which was resumed -patient takes tramadol 50 mg 3 times daily as needed for pain which will be continued 8. Hypertension, present on admission, active -patient has elevated blood pressure upon arrival at 192/81 and continues remain hypertensive at 160-170 systolic range -continue lisinopril and atenolol per home routine 9. Acute rectal bleed, active -had episode of bright red blood per rectum associated with soft formed bowel movement on 03/17 -differential includes hemorrhoidal, diverticular -CT scan from ER did not show any acute findings -monitor H&H
[2020-03-17] MEDS: KCL 20 MEQ IN NS 1,000 ML 75 MEQ IV (14:47)
[2020-03-17 14:57] LABS: Hematocrit 33.7 % (36-46)
[2020-03-17] MEDS: LORazepam 2 MG/ML INJ 0.5 MG IV (15:01)
--- NOTE | 2020-03-17 15:20 | PT-IP ANOTE ---
pt is being sent for MRI this afternoon. PT held until tomorrow 03/18/20
[2020-03-17] MEDS: ATORVASTATIN 20 MG TABLET 40 MG PO (16:53)
--- NOTE | 2020-03-17 21:22 | PC.NURSE ---
2100- Patient appears to be conversing with herself. Patient does not seem to be aware she is doing this. Patient is oriented to self and place. Patient is cooperative but seems to not track conversations well. Patient has poor short term memory. Bed alarm is on for safety. Patient is incontinent of urine and urine is pink tinged. Patient denies pain. Will monitor.
[2020-03-18] VITALS (9 sets, daily range): BP systolic 137–167; BP diastolic 77–89; PULSE 89–98; RESP 14–20; TEMP 36.1–37.7; O2SAT 95–99
--- NOTE | 2020-03-18 02:16 | PC.NURSE ---
NOC Note: Pt was prone at shift change and remained that way until 0110. Pt had coughing episode, RT gave MDI and 12 lead was done per PEPE Pompa's orders. Then went to his left side, he was encouraged to prone again but remained on his left side for approximately 40 minutes. O2 sats between 80-91%. At 0155 Pt was proning again and O2 sats up to 93%. Pt not on tele while proning.
[2020-03-18] MEDS: KCL 20 MEQ IN NS 1,000 ML 75 MEQ IV ×2 (06:10→21:07)
[2020-03-18] MEDS: ACETAMINOPHEN 325 MG TABLET 650 MG PO (06:14)
[2020-03-18 06:37] LABS: Add Manual Diff / Slide Review NO; Basophils Absolute Auto 0 /uL (0-100); Basophils Percent Auto 0.4 % (0-2); Eosinophils Absolute Auto 0 /uL (0-450); Eosinophils Percent Auto 0.2 % (2-4); Hematocrit 34.2 % (36-46); Hemoglobin 11.4 g/dL (12.0-16.0); Lymphocytes Absolute Auto 2800 /uL (1100-4500); Lymphocytes Percent Auto 20.2 % (25-40); Mean Corpuscular HGB Conc 33.4 % (30-36); Mean Corpuscular Hemoglobin 29.3 PG (26-34); Mean Corpuscular Volume 87.8 fL (80-100); Monocytes Absolute Auto 1000 /uL (0-900); Monocytes Percent Auto 7.4 % (3-14); Neutrophils Absolute Auto 9800 /uL (1500-7000); Neutrophils Percent Auto 71.8 % (50-75); Platelet Count 269 X10^3/uL (150-400); Red Blood Cell Count 3.89 X10^6/uL (4.0-5.2); Red Cell Distribution Width 12.8 % (11.6-14.8); White Blood Cell Count 13.7 X10^3/uL (4.5-11.0)
[2020-03-18] MEDS: INSULIN ASPART 100 UNIT/ML INSULN PEN SUBCUT ×4 (08:13→21:02)
[2020-03-18] MEDS: GABAPENTIN 600 MG TABLET PO ×3 (08:14→21:01)
[2020-03-18] MEDS: lisinopriL 10 MG TABLET PO (08:14)
[2020-03-18] MEDS: DULOXETINE 30 MG CAPSULE PO ×2 (08:15→21:01)
[2020-03-18] MEDS: atenoloL 25 MG TABLET PO (08:15)
[2020-03-18] MEDS: ASPIRIN EC 81 MG TABLET PO (08:15)
[2020-03-18] MEDS: TAMSULOSIN 0.4 MG CAPSULE PO (08:15)
--- NOTE | 2020-03-18 09:45 | PC.NURSE ---
Assess- Patient is confused and sometimes seeing people. She talks to herself a lot and does not make a lot of sense. She has agreed to go down to an MRI around 1020. She is a 1 person assist to the bsc and walker. She has been appropriate with staff and talks to herself alot. Patient has a upper arm picc with ivf infusing. She was incontinent of a small amount of urine. Now working with physical therapy and then down to MRI.
--- NOTE | 2020-03-18 10:30 | PT.IPTN ---
Physical Therapy Treatment Note M2 PT-IP Current Condition Start: 03/17/20 15:22 Freq: NEEDED Status: Active Protocol: Document 03/18/20 13:16 [facility] (Rec: 03/18/20 13:29 [facility] [id number]) Physical Therapy Current Condition Current Condition Evaluation Date 03/18/20 Treatment Diagnosis encephalopathy, weakness Weight Bearing Status Weight Bearing Status Full Weight Bearing M3 PT-IP Subjective Start: 03/17/20 15:22 Freq: NEEDED Status: Active Protocol: Document 03/18/20 13:16 [facility] (Rec: 03/18/20 13:29 [facility] [id number]) Subjective Physical Therapy Visit Type Type Initial Evaluation Visit Start Time 09:46 Visit Stop Time 10:15 Total Visit Minutes 29 Number of BRICK CLEANER Visits 0 Physical Therapy Visit Comments Patient Comments Pt agreeable to work with PT M4 PT-IP Mobility and Gait Start: 03/17/20 15:22 Freq: NEEDED Status: Active Protocol: Document 03/18/20 13:16 [facility] (Rec: 03/18/20 13:29 [facility] [id number]) PT-Transfer Assessment Sit to and From Stand Sit to and from Stand Contact Guard Assistance,Use of Upper Extremities Equipment Transfer Assistive Device Gait Belt,Front Wheeled Walker Orthotic/Prosthetic Devices or Brace: No Transfers Transfer Destination Chair Transfer Technique Stand Step Pivot Comments Mobility Comments Pt able to stand from commode and amb in room and hallway with PT CGA. Pt then returned to room and sat EOB for RN to take off tele monitor & IV in order for pt to go for testing . Pt transfered to chair with FWW CGA. Gait Assessment Gait Gait Assistance Required: Contact Guard Assist Distance (Feet) 125 Able to Maintain Weight Bearing Status Yes During Gait Assistive Devices Assistive Device Gait Belt,Front Wheeled Walker Gait Deviations General Gait Pattern Decreased Stride Length, Decreased Feet Clearance Factors Limiting Gait Function Factors Limiting Gait Function Decreased Activity Tolerance, Decreased Strength,Difficulty Following Directions,Poor Balance,Poor Safety Awareness PT-Balance Assessment Sitting Balance and Reactions Static Sitting Balance Ability Good Dynamic Sitting Balance Ability Good Standing Balance and Reactions Static Standing Balance Ability Good Dynamic Standing Balance Ability Fair Device Used FWW M5 PT-IP Objective Assessments Start: 03/17/20 15:22 Freq: NEEDED Status: Active Protocol: Document 03/18/20 13:16 [facility] (Rec: 03/18/20 13:29 [facility] [id number]) Orientation Orientation/Cognition Level of Alertness Confusional State Language Function Ability No Deficits Noted Safety Awareness Decreased Safety Awareness Comments Pt had difficulty following conversations and would often chose off topic answers when answering questions. Strength Lower Extremity Strength Assessment Bilaterally Impaired M6 PT-IP Treatment Start: 03/17/20 15:22 Freq: NEEDED Status: Active Protocol: Document 03/18/20 13:16 [facility] (Rec: 03/18/20 13:29 [facility] [id number]) Physical Therapy Treatment Education Education Provided Safety M7 PT-IP Assessment and Plan Start: 03/17/20 15:22 Freq: NEEDED Status: Active Protocol: Document 03/18/20 13:16 [facility] (Rec: 03/18/20 13:29 [facility] [id number]) PT Summary Assessment and Plan Potential Rehabilitation Potential Good Status of Condition at Evaluation Evolving Summary Impairments Strength,Balance,Bed Mobility, Transfers,Gait,Activity Tolerance Assessment Summary Pt did well overall with mobility but showed some dec safety awareness when walking around and confusion when given instructions of where to go. At this time, unless she has someone at home, she may not be safe to do typical ADLs at home. She was cooperative with therapist today, but gait was slow, with dec stride length and dec foot clearance which puts her at risk for falls. Goals Bed Mobility Goal Independent Transfer Goal Independent Gait Goal Standby Assistance Gait Distance 150ft Other Goals Pt able to go up/down 10 stairs with rail SBA Days to Meet Goals 6 Frequency of Treatment Frequency Of Treatment Once a Day Treatment Plan Physical Therapy Treatment Plan Bed Mobility Training,Transfer Training,Gait Training, Therapeutic Exercise,Balance Retraining,Neuromuscular Re-ed Other Recommendations and Next Treatment work on gait and balance & Focus safety, stair training Recommendations To Nursing Amount of Assist Needed 1 Person Assist Discharge Recommendations PT Discharge Recommendations Home with 24/ Assist,Home Health,SNF Rehab Other Discharge Recommendations DC recommendations to be determined d/t current confusion Transportation Needs at Discharge Private Vehicle
--- NOTE | 2020-03-18 12:01 | OT.IP.TRT ---
Occupational Therapy Treatment Note M2 OT-IP Current Condition Start: 03/17/20 17:53 Freq: Status: Active Protocol: Document 03/18/20 12:59 [facility] (Rec: 03/18/20 13:17 [facility] [id number]) Occupational Therapy Current Condition Current Condition Evaluation Date 03/17/20 Treatment Diagnosis metabolic encephalopathy, hypoxia Diagnosis Onset Date 03/16/20 M3 OT- IP Subjective and Pain Start: 03/17/20 17:53 Freq: Status: Active Protocol: Document 03/18/20 12:59 [facility] (Rec: 03/18/20 13:17 [facility] [id number]) OT- Subjective Occupational Therapy Visit Type Type Progress Note Visit Start Time 11:49 Visit Stop Time 12:01 Total Visit Minutes 11 Notes Pt just completed shower with aide. home care aide reports that pt showered and donned clothing with supervision. OT Pain Assessment Pain Present Pain Present Denied Pain M4 OT- IP ADL's Start: 03/17/20 17:53 Freq: Status: Active Protocol: Document 03/18/20 12:59 [facility] (Rec: 03/18/20 13:17 [facility] [id number]) OT [id number] General Evaluation Self-Feeding Ability Independent Comments OT Self-Feeding Comments Pt was able to open containers and silverwear without any assist. Able to participate in communication during eating. OT ADL-Grooming Comments OT Grooming Comments Already performed today OT ADL-Oral Care Comments Oral Care Comments Already performed today OT ADL-Dressing Comments OT Dressing Comments Per registered nursing professor, pt was able to don all clothing inclusing socks with supervision. OT ADL-Toileting Comments OT Toileting Comments Not performed in this session. OT ADL-Bathing Comments OT Bathing Comments Already performed today M5 OT- IP IADL's Start: 03/17/20 17:53 Freq: Status: Active Protocol: Document 03/17/20 17:53 [facility] (Rec: 03/17/20 18:37 [facility] [id number]) OT-Instrumental Activities of Daily Living Home Safety Awareness Ability to Problem Solve Emergency Able to Problem Solve Situations Home Safety Comments Pt able to state to call 911 in case of a fire, not to open the door in case of a stranger, states would not give out credit card number if someone called her on the phone, and would use a plunge if the toilet were to overflow . Medication Management Medication Management Comments At this time due to her confusion would be best to have her provide supervision. Meal Preparation Meal Preparation Comments At this time due to decreased activity tolerance and balance would benefit to sit to assist with meal prep needs at this time. Flooring Mechanic Flooring Mechanic Caregiver Provides Assist Driving Driving Comments Pt agrees at this time will not drive. M6 OT- IP Functional Cognition Start: 03/17/20 17:53 Freq: Status: Active Protocol: Document 03/18/20 12:59 [facility] (Rec: 03/18/20 13:17 [facility] [id number]) Cognitive Factors Limiting Selfcare Function Cognitive Ability Level of Alertness Alert,Confusional State Patient Orientation Name,Age,Birthday,Month,Date, Year,Day of Week,Place, Situation Attention Span Ability Capable of Focused Attention Ability to Follow Commands Able to Follow One Step Commands with Increased Time, Able to Follow One Step Commands with Repetition Memory Description Working Impaired Cognitive Comments Cognitive Assessment Comments Pt known to this entry writer from her husbands hospitalization. Pt is not at her baseline as remembered by this entry writer in January of 2020. Pt may benefit from a follow up cog assessment tomorrow. M7 OT- IP Mobility and Balance Start: 03/17/20 17:53 Freq: Status: Active Protocol: Document 03/17/20 17:53 [facility] (Rec: 03/17/20 18:37 [facility] [id number]) OT- Bed Mobility Assessment Rolling Type of Rolling Roll to Right Supine to Sit Supine to Sit Assist Standby Assistance Sit to Supine Sit to Supine Assist Contact Guard Assistance Scooting Scooting to Edge of Bed Standby Assistance OT-Transfer Assessment Sit to and From Stand Sit to and from Stand Contact Guard Assistance Transfers Transfer Ability Contact Guard Assistance Technique Transfer Destination Bed Devices Transfer Assistive Devices Gait Belt,Front Wheeled Walker Comments Mobility Comments Pt needing extra time to get up from the bed. Pt able stand with CGA with FWW, initially having pain in her left foot and then after taking a few steps able to keep her left foot flat on the floor. Pt able to walk slowly with CGA and stand at the sink with SBA, however when she got distracted by turning to the right has a loss of balance, needing WILBER to recover. OT- Gait Assessment Comments Gait Ability Comments CGA with FWW. OT- Balance Assessment Sitting Balance and Reactions Static Sitting Balance Ability Good Dynamic Sitting Balance Ability Fair Standing Balance and Reactions Static Standing Balance Ability Fair M8 OT- IP Objective Assessments Start: 03/17/20 17:53 Freq: Status: Active Protocol: Document 03/17/20 17:53 [facility] (Rec: 03/17/20 18:37 [facility] [id number]) OT Gross Range of Motion Upper Extremity Range of Motion Assessment Within Functional Limits OT Strength Upper Extremity Strength Assessment Within Functional Limits M9 OT- IP Assessment and Plan Start: 03/17/20 17:53 Freq: Status: Active Protocol: Document 03/18/20 12:59 [facility] (Rec: 03/18/20 13:17 [facility] [id number]) OT Summary Assessment and Plan Potential Rehabilitation Potential Good Analytic Complexity at Evaluation Low Summary OT Impairments Balance,Functional Cognition, Functional Mobility,Grooming, Dressing,Toileting,Bathing, Toilet Transfers,Shower Transfers Progress Towards Goals Slow Progress due to Medical Issues,Slow Progress due to Activity Tolerance,Slow Progress due to Cognition Assessment Summary Pt presents with cognitive deficits noted to be different since this entry writer interacting with pt in January of 2020. Pt is able to answer direct questions but tends to trail off into other unrelated topics. Pt was able to feed and shower without physical assist. Pt will benefit from follow up cog assessment. Recommendation is for 24 hour care at this time d/t safety concerns. Also, pt is unlikely to be safe with managing her own medications. Goals Self-Feeding Goal Independent Grooming Goal Independent Dressing Goal Independent Toileting Goal Independent Bathing Goal Independent Toilet Transfer Goal Independent Shower Transfer Goal Independent Days to Meet Goals 6 Frequency of Treatment Frequency Of Treatment Once a Day Treatment Plan OT Treatment Plan ADL Training,Functional Cognition Training,Functional Mobility,Patient/Family Education,Discharge Planning Other Treatment Recommendations and Next shower, ACL Treatment Focus Discharge Recommendations OT Discharge Recommendations Home with 24/ Assist,Home Health,Outpatient PT Home Equipment Needs to be determined Transportation Needs at Discharge Private Vehicle
[2020-03-18] MEDS: ATORVASTATIN 20 MG TABLET 40 MG PO (16:55)
--- NOTE | 2020-03-18 16:55 | P.PN_ITS ---
Subjective Subjective Date Patient Seen: 03/18/20 Interval history: She is seen in her room here today to follow-up her metabolic encephalopathy. She tells me that she came to the hospital because she ?could not pee? she says she was cathed and feels it is better but her ability to answer questions and the apparent confabulation worsens as the conversation continues. She mentions something about her and some unknown issue that is concerning to her. Her speech is quite ponderous. 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 She will be seen by psychiatry today. Exam Vital Signs (past 8 hours): - 03/18/20 12:30 03/18/20 13:33 03/18/20 15:24 Temperature 99.8 F H 98.2 F Pulse Rate 98 H 91 H 92 H Respiratory Rate 14 18 18 Blood Pressure 165/77 H 145/86 H Pulse Oximetry 99 95 95 Oxygen Delivery Method Room Air Oxygen Flow Rate 0 Narrative Exam Narrative: She is alert and oriented x3. Her conversational ability rapidl y deteriorates from there and she begins to describe stories that do not make immediate sense and sound somewhat nonsensical. Heart is regular rate and rhythm without murmur. Lungs are clear to auscultation bilaterally. Abdomen is soft, bowel sounds positive, nontender, no organomegaly. Extremities have no ankle edema. Objective Labs Result Diagrams: 03/18/20 06:15 03/17/20 08:10 Labs: Laboratory Results - last 24 hr 03/18/20 06:15 WBC 13.7 H RBC 3.89 L Hgb 11.4 L Hct 34.2 L MCV 87.8 MCH 29.3 MCHC 33.4 RDW 12.8 Plt Count 269 Neut % (Auto) 71.8 Lymph % (Auto) 20.2 L [place] % (Auto) 7.4 Eos % (Auto) 0.2 L Baso % (Auto) 0.4 Neut # (Auto) 9800 H Lymph # (Auto) 2800 [place] # (Auto) 1000 H Eos # (Auto) 0 Baso # (Auto) 0 Assessment & Plan Assessment & Plan narrative: This is a 64-year-old female patient presents to the ER with 2 days of decreasing mentation initially found to be hypoxemic upon arrival EMS. 1. 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 and then the day prior to admission she was much more sleepy, incoherent, and threw up about 6 times when was able to briefly wake her up -per phone conversation with he states she has baseline memory impairm ent with difficulties with word finding and having to stop in mid conversation but otherwise independent in ADLs including driving, shopping etcetera, patient manages own medications -OT evaluation 03/17 slums score 13 although patient not currently at baseline so unclear if she has true dementia vs mild cognitive impairment -Urine tox screen is positive for opiates and tricyclics both prescribed medications as well as marijuana, unknown last use. -multiple possible etiologies including: Subacute CVA - Right Frontal on MRI brain Drug toxicity related, patient on multiple psychoactive drugs including hydrocodone, zolpidem, gabapentin, cyclobenzaprine, tramadol Infection unlikely-patient afebrile, initial reactive WBC 17.5 with procalcitonin 0.05 x2, and WBC improving on its own Acute dehydration-patient with elevated lactic acid at 2.9, anion gap of 17 and acute kidney injury with elevation creatinine and elevated BUN/Cr -continue OT and PT evaluations -appreciate Psychiatry - Dr. Palumbo to see her today 2. Acute respiratory failure with hypoxemia, present on admission, resolved -patient has a history of asthma without reports of shortness of breath. EMS found the patient hypoxemic in the field with saturations in the 70s to low 80s, patient is documented to be at 96% on 7 L of oxygen upon arrival in the ER. On assessment the patient has shallow respirations without wheezing coarseness or crackles. -arterial blood gas finds a pH of 7.37, pCO2 39, PO2 is 80, bicarbonate of 23 with a base excess of -3 on 50% FiO2. PF ratio was 160. D-dimer was negative at 226. -CT of the chest finds no acute abnormalities and identifies vascular atherosclerosis. 3. Leukocytosis, reactive, present on admission, improving -no locus of infection is identified, patient is afebrile, urinalysis shows no infection, CT of the chest is negative physical exam is benign. -WBC trending down, procalcitonin is less than 0.05, CRP is less than 0.05. -abdominal CT unremarkable 4. Metabolic acidosis secondary to dehydration, present on admission, resolved -patient had trace urine ketones, lactate of 2.9, anion gap of 17 with dry mucous membranes -patient with poor vascular access, patient too restless for placement of a central line, midline catheter was placed. -continue IV hydration 1 more day 5. Acute kidney injury, secondary to dehydration, present on admission, resolved -patient with a creatinine of 1.21 on admission, Last creatinine 0.63, previous baseline from 02/03/2020 was 0.87. -urinalysis with 2+ protein, EGFR is 45.1 and calculated creatinine clearance is 47.18. 6. Diabetes type 2 with neuropathy, present on admission, active -patient hyperglycemic with a glucose of 218 on admission labs. Most recent A1c in January of 2020 was 7.2. -patient typically takes glipizide and metformin for glycemic management which are held. -continue sliding scale insulin, ADA diet 7. Chronic pain, present on admission, stable -patient is prescribed [place] 7.5/325 which is held related to altered mental status -patient is prescribed gabapentin 600 mg 3 times per day which was resumed -patient takes tramadol 50 mg 3 times daily as needed for pain which will be continued 8. Hypertension, present on admission, active -patient has elevated blood pressure upon arrival at 192/81 and continues remain hypertensive at 160-170 systolic range -continue lisinopril and atenolol per home routine 9. Acute rectal bleed, active -had episode of bright red blood per rectum associated with soft formed bowel movement on 03/17 -differential includes hemorrhoidal, diverticular -CT scan from ER did not show any acute findings -monitor H&H
--- NOTE | 2020-03-18 17:29 | PM.CN ---
History of Present Illness Consult details Date Patient Seen: 03/18/20 Time Patient Seen: 13:45 Chief complaint: Decreased LOC Reason for consult: Psychotic symptoms, rule out psychiatric etiology Requesting provider: Daphne Bills Narrative: HOSPITAL COURSE: 64F admitted 03/16/20 for altered mental status, no clear etiology at this point, on multiple [employer] [employer] depressants. Hypoxemia on admission has resolved. JC on admission. Also rectal bleed. Seen by Dr. Brito as an outpatient, last visit 03/10/20, focused on pain & encouraging patient to work with pain management on this. Switched from sertraline to duloxetine recently (Dec). Chart review shows h/o fluoxetine to 20mg daily [id number], desipramine 10mg QHS 2016 and 2019 for nocturia sertraline from Jan 2018 ? recent to 100mg daily venlafaxine ER 75mg daily Feb 2017 zolpidem salvage determiner hydrocodone mcc EKG on admission with rate 69, QTc 477 EKG 12/08/19 sinus tachy, rate 105, QTc 490 COLLATERAL FROM STAFF: RN reports patient has been paranoid, talking to herself, seeing her or others not in the room, agitated but not combative or interfering with care; has taken care of patient in the past and this is quite different compared to that admission Spoke with Dr. Bills, some psychiatric history although not completely clear; wants to rule out new psychotic disorder INTERVIEW: CC: I need to talk to him! Pt reports she needs to talk to him, knows they are broke, doesn't feel safe unless she talks to him. Clarified that she means her & his name is Will. Mentions something about a fire stick & Radha, the internet not working, not able to call him and picks up her cell phone & also the nursing call button. References her leg he will advocate for me! States she knows the staff here are very nice & will take care of her. Wants me to check that her nephew has not been here, she is scared that he has been here. She did endorse that we are in the hospital, and expressed understanding that we are very careful about who comes in & out. Also called pt's Will He mentions that antidepressant was mostly for the pain he thought. Not aware of h/o depression. They have been for 16y, and he has not seen her acting like this before. He states that last week she went steadily downhill, on Saturday she stopped in mid-sentence, Mon slept ? the day still taking medications & cooked dinner; Tues ?was the bad day? kept falling asleep all day long, couldn?t get her to eat, every time he sat her up she vomited, then states that her R arm ?started flinging?. Vomited about 6x. Sat AM not responding when he asked her what her name was & called the ambulance. Spoke with her about 2h ago but didn?t make sense ?I could come get her but it would cost $25K & that me, her brother, and her nephew were outside her window?. No h/o paranoia or hallucinations that he has seen, never seen her act like this. Not sure if she might have taken too many medications, or if pain was a big factor. Later in our conversation he mentions episode with some similarities, having a lot of pain & these symptoms seemed to resolve in the ED. Further chart review shows 12/08/19 ED visit for hallucinations, also nausea & dry heaving, chilled. That note mentions Oct 2019 similar symptoms & found to have NSTEMI (chart review confirms 10/23/19 ED visit with transfer to [facility]) Meds Home Medications and Allergies Home Medications Medication Instructions Recorded Confirmed Type Homeopathic Substance (ALLERGY) 1 tab SUBLINGUAL DIRECTED #0 01/09/12 03/16/20 History aspirin 81 mg tablet,delayed 81 mg PO DAILY 05/02/18 03/16/20 History release Glucose: Test Strips #100 each 04/14/19 03/16/20 Rx albuterol sulfate [Proventil HFA] 1 puff IH PRN PRN 06/05/19 03/16/20 History tramadol 50 mg tablet 50 mg PO TID PRN #60 tab 08/17/19 03/16/20 Rx gabapentin 600 mg tablet 600 mg PO TID #120 tab 08/24/19 03/16/20 Rx atorvastatin 40 mg PO QPM 10/23/19 03/16/20 History diclofenac sodium 50 mg PO BID PRN 10/23/19 03/16/20 History estradiol 1 mg PO DAILY 10/23/19 03/16/20 History Disabled Parking #1 each 10/30/19 03/16/20 Rx fluticasone propionate 2 spray INTRANASAL PRN PRN 12/08/19 03/16/20 History lisinopril 10 mg PO DAILY 12/08/19 03/16/20 History medroxyprogesterone 10 mg PO DAILY 12/08/19 03/16/20 History melatonin 5 mg PO BEDTIME PRN 12/08/19 03/16/20 History glipizide 5 mg tablet 5 mg PO BID #60 tab 12/28/19 03/16/20 Rx metformin 1,000 mg tablet 1,000 mg PO BID #180 tab 12/28/19 03/16/20 Rx duloxetine 30 mg capsule,delayed 30 mg PO BID #180 cap 01/29/20 03/16/20 Rx release cyclobenzaprine 10 mg tablet 10 mg PO TID PRN #60 tab 02/08/20 03/16/20 Rx zolpidem 10 mg tablet 10 mg PO BEDTIME #30 tab 02/08/20 03/16/20 Rx atenolol 25 mg tablet 25 mg PO DAILY #90 tab 02/24/20 03/16/20 Rx tamsulosin 0.4 mg capsule 0.4 mg PO DAILY #90 cap 02/25/20 03/16/20 Rx hydrocodone 7.5 mg-acetaminophen 1 - 2 tab PO Q4HP PRN #90 tab 02/26/20 03/16/20 Rx 325 mg tablet Allergies Allergy/AdvReac Type Severity Reaction Status Date / Time banana [BANANA] Allergy Unknown Verified 12/28/19 09:58 Review of Systems Review of Systems ROS: Yes unobtainable due to mental status Exam Vital Signs (past 8 hours): - 03/18/20 12:30 03/18/20 13:33 03/18/20 15:24 Temperature 99.8 F H 98.2 F Pulse Rate 98 H 91 H 92 H Respiratory Rate 14 18 18 Blood Pressure 165/77 H 145/86 H Pulse Oximetry 99 95 95 Oxygen Delivery Method Room Air Oxygen Flow Rate 0 Narrative Exam Narrative: MENTAL STATUS EXAM Appearance: unkempt, in hospital garb, dark hair Behavior: sitting propped in chair, moving arms with talking, looking around, +psychomotor agitation Gait: not observed Speech: quick rate, interruptible, loud volume at times Mood: scared Affect: labile Thought Process: guarded, perseverative Thought Content: +paranoid delusions, +VH and possibly AH, no clear evidence of SI or HI Attention: Distractible Orientation: oriented to place as hospital, to self, date/time not tested Memory: limited Insight: limited Judgment: limited Objective Labs Result Diagrams: 03/18/20 06:15 03/17/20 08:10 Labs: Laboratory Results - last 24 hr 03/18/20 06:15 WBC 13.7 H RBC 3.89 L Hgb 11.4 L Hct 34.2 L MCV 87.8 MCH 29.3 MCHC 33.4 RDW 12.8 Plt Count 269 Neut % (Auto) 71.8 Lymph % (Auto) 20.2 L [place] % (Auto) 7.4 Eos % (Auto) 0.2 L Baso % (Auto) 0.4 Neut # (Auto) 9800 H Lymph # (Auto) 2800 [place] # (Auto) 1000 H Eos # (Auto) 0 Baso # (Auto) 0 Assessment & Plan Assessment and plan (1) Acute alteration in mental status: Current visit: Yes Status: Acute (2) Recurrent major depressive disorder, in full remission: Current visit: No Status: Chronic (3) Acute hyperactive delirium due to multiple etiologies: Current visit: Yes Status: Acute (4) Acute metabolic encephalopathy: Current visit: Yes Status: Acute Assessment & Plan narrative: ASSESSMENT: Lorenzo Yarbrough is a 64-year-old female admitted 03/16/20 for acute mental status change hypoxemia, leukocytosis, JC, hyperglycemia. She has history significant for type 2 diabetes with peripheral neuropathy, CAD, VA, asthma, hypertension, hyperlipidemia, chronic pain with fibromyalgia and foraminal stenosis to the lumbar sacral area, and pain that has been difficult to control. Dr. Brito's notes also indicate history of depression with change from sertraline to duloxetine 2-3 months ago. Her current presentation is most consistent with delirium due to the acute change from her baseline. I do not see evidence of psychotic break or primary psychiatric diagnosis, although she has history of depression we would not expect these things to be an acute change in the context of other medical issues. Delirium is likely multifactorial (medications, acute conditions including JC, hypoxemia) and MRI today shows the possibility of subacute CVA which could also be contributing factor. Also very possible that while she was ill prior to admission she overtook medications either intentionally or unintentionally. Chart review also shows at least recent pattern of paranoia & hallucinations with medical issues (NSTEMI in Oct 2019, ED visit in Nov with no clear etiology but unable to urinate & cath of 400cc) so it is likely that with her baseline medications and comorbid medical conditions, she is at a low threshold for delirium when she becomes otherwise ill. Given her level of paranoia and agitation, I recommend trial of low-dose PO haldol to see if this can help prevent agitation or paranoia from getting worse. Also, any environmental interventions that are feasible as listed below can be very helpful in delirium management. RECOMMENDATIONS: 1. Delirium precautions as you are doing to include: -avoid deliriogenic medications, especially benzodiazepines, anticholinergics, opiate pain medications were possible -frequently orientation, including visual or hearing aids if needed -regulate sleep-wake cycles much as possible including minimizing interruptions overnight, access to natural daylight during the day 2. Start haldol 0.5mg PO BID prn agitation or insomnia not responding to other measures 3. Continue to address medical problems as you are doing While I am not on-site over the weekend, I am happy to follow with the team to help support her care. I will plan to do chart review & check-in with the medical team tomorrow 03/19/20, and can see patient again on Wednesday 03/21 if she is still in the hospital. Thank you for involving me in the care of this patient. Time Spent With Patient Time with patient: 15-24 minutes
[2020-03-19] VITALS (8 sets, daily range): BP systolic 149–186; BP diastolic 81–99; PULSE 88–124; RESP 12–20; TEMP 36.4–36.8; O2SAT 97–100; BMI 25.0
[2020-03-19] MEDS: TRAMADOL 50 MG TABLET PO (03:57)
[2020-03-19 05:21] LABS: Add Manual Diff / Slide Review NO; Basophils Absolute Auto 100 /uL (0-100); Basophils Percent Auto 0.5 % (0-2); Eosinophils Absolute Auto 0 /uL (0-450); Eosinophils Percent Auto 0.3 % (2-4); Hematocrit 35.2 % (36-46); Hemoglobin 11.5 g/dL (12.0-16.0); Lymphocytes Absolute Auto 3300 /uL (1100-4500); Lymphocytes Percent Auto 24.6 % (25-40); Mean Corpuscular HGB Conc 32.7 % (30-36); Mean Corpuscular Hemoglobin 28.9 PG (26-34); Mean Corpuscular Volume 88.1 fL (80-100); Monocytes Absolute Auto 1000 /uL (0-900); Monocytes Percent Auto 7.8 % (3-14); Neutrophils Absolute Auto 8900 /uL (1500-7000); Neutrophils Percent Auto 66.8 % (50-75); Platelet Count 291 X10^3/uL (150-400); Red Cell Distribution Width 12.9 % (11.6-14.8); White Blood Cell Count 13.4 X10^3/uL (4.5-11.0)
[2020-03-19 05:30] LABS: Blood Urea Nitrogen 13 mg/dL (7-17); Calcium 8.9 mg/dL (8.4-10.2); Carbon Dioxide 23 mmol/L (22-32); Chloride 107 mmol/L (98-107); Estimated Glomerular Filt Rate > 60.0 mL/min (>60); Glucose 216 mg/dL (80-110); HEMOLYSIS < 15 (0-50); Potassium 3.7 mmol/L (3.4-5.1); Sodium 139 mmol/L (137-145)
[2020-03-19] MEDS: atenoloL 25 MG TABLET PO (07:52)
[2020-03-19] MEDS: ASPIRIN EC 81 MG TABLET PO (07:53)
[2020-03-19] MEDS: DULOXETINE 30 MG CAPSULE PO ×2 (07:53→20:45)
[2020-03-19] MEDS: lisinopriL 10 MG TABLET PO (07:53)
[2020-03-19] MEDS: TAMSULOSIN 0.4 MG CAPSULE PO (07:54)
[2020-03-19] MEDS: INSULIN ASPART 100 UNIT/ML INSULN PEN SUBCUT ×4 (07:55→20:45)
[2020-03-19] MEDS: GABAPENTIN 600 MG TABLET PO ×3 (07:57→20:45)
--- NOTE | 2020-03-19 10:34 | PC.NURSE ---
Assess- Patient is pleasant but she does have some hallucinations and states that she see's her and brother periodically in the room. Patient see's that we are wearing masks and gloves in the room, and she asked for both. These have both been given to her as it makes her feel more calm. Up with 1 person assist and walker, patient voided 650cc. She does have a neuorgenic bladder and sometime patient has to make a trip to the bathroom a couple of times before she is able to go. She was showered yesterday, resting in room. She had meds this morning and swallowed without any difficulty,eating well at meals. Walking with PT now with walker and gaitbelt.
[2020-03-19] MEDS: KCL 20 MEQ IN NS 1,000 ML 75 MEQ IV (10:47)
--- NOTE | 2020-03-19 11:01 | DIET.PN ---
Dietary Progress Note Assessment: 64y F admitted for decreased LOC found to have possible frontal lobe CVA referred to nutrition to screen for malnutrition. Per RN, pt having some difficulty with self-selecting meals off menu but does well with some direction from dietary assistant or nursing staff. Pt's POs since admit have been 50-75% and pt is wt stable. Pt seems not to have problem c self-feeding and eats what she wants from meal trays. Pt has 7.6% unintentional wt loss over 4 mo which does not meet criteria for malnutrition. HT: 154.9cm WT: 60kg UBW: 65kg (-7.6% unintentional over 4mo, non-severe) BMI: 25.0 Labs: WBC 13.4 H, BG 216 H MNA: 11 at risk for malnutrition Rikki: 19 Nutrition Diagnosis: none at this time Interventions: 1. Continue HH/CCD diet to manage chronic diseases 2. Continue assessing pt's ability to use executive fxn to order appropriate meals, recognize hunger and satiety Diet Order: Heart Healthy/Consistent Carb EER: 1500 kcals, 60g PRO (1g/kg), 1.8L fluids
--- NOTE | 2020-03-19 11:13 | PT.IPTN ---
Current Diagnoses Delirium due to known physiological condition (03/16/20) Major depressive disorder, recurrent, in full remission (03/16/20) Encephalopathy, unspecified (03/16/20) Metabolic encephalopathy (03/16/20) Altered mental status, unspecified (03/16/20) Physical Therapy Treatment Note M2 PT-IP Current Condition Start: 03/17/20 15:22 Freq: NEEDED Status: Active Protocol: Document 03/18/20 13:16 [facility] (Rec: 03/18/20 13:29 [facility] [id number]) Physical Therapy Current Condition Current Condition Evaluation Date 03/18/20 Treatment Diagnosis encephalopathy, weakness Weight Bearing Status Weight Bearing Status Full Weight Bearing M3 PT-IP Subjective Start: 03/17/20 15:22 Freq: NEEDED Status: Active Protocol: Document 03/19/20 10:45 SP (Rec: 03/19/20 16:53 SP [id number]) Subjective Physical Therapy Visit Type Type Treatment Note Visit Start Time 10:45 Visit Stop Time 11:13 Total Visit Minutes 28 Number of DIRECTOR PHYSICAL THERAPY Visits 1 Physical Therapy Visit Comments Patient Comments Pt agreeable to PT. Therapy Pain Assessment Pain When Pain Assessed During Mobility Pain Present Pain Present Pain Reported Location Left Jaquez Intensity 3 Scale Used knees scale 1-10 Description Pressure Pain Behaviors Facial Grimacing Pain Management Techniques Re-positioning,Timing of Activity with Medications M4 PT-IP Mobility and Gait Start: 03/17/20 15:22 Freq: NEEDED Status: Active Protocol: Document 03/19/20 10:45 SP (Rec: 03/19/20 16:53 SP [id number]) PT-Bed Mobility Assessment Supine to Sit Supine to Sit Contact Guard Assistance, Bedrails Sit to Supine Sit to Supine Standby Assistance Scooting Scooting to Edge of Bed Standby Assistance Scooting Up and Down in Bed Standby Assistance PT-Transfer Assessment Sit to and From Stand Sit to and from Stand Contact Guard Assistance,Use of Upper Extremities Equipment Transfer Assistive Device Gait Belt,Front Wheeled Walker Transfers Transfer Destination Bed Transfer Technique ambulated using FWW Comments Mobility Comments Pt was laying in bed when arrived agreeable to PT. Completed supine to sitting using R bed rail for self support CGA. Pt was able to scoot to EOB SBA. Pt was able to maintain sitting EOB I. Sit to stand CGA, cued for redirection of BUE on bed and not using FWW to pull from for safety of tipping, patient took minute to respond then repeated do I put my hands here on the bed?. Pt takes time to process requests and sometimes needs it to be repeated for follow through. Pt complete standing pre gait exercises: heel raises, marching and assess standing balance: NBOS feet together EO /EC 10 sec each stable (needs BUE support on FWW to get feet in place before letting go), stagger stance each foot position 10 each incorporated head turn with LOB self correction hand support on FWW . Pt required couple of cues for directioning R side of bed to L side of door, pt stated how should I walk with this walker demonstrated stagger walking initally, DIRECTOR PHYSICAL THERAPY cued normal step over step patterning if able to with hesistation standing stationary stance to process then follow through rest of distance, ambulated into hallway approx 150 ft total using FWW, CGA. Pt layed back down when returned SBA with HOB flat and no use of bed rail, was able to scoot up in bed using BLE and upright on elbows. Pt had call light and all needs in reach, bed alarm armed. Gait Assessment Gait Gait Assistance Required: Contact Guard Assist Distance (Feet) 150 Able to Maintain Weight Bearing Status Yes During Gait Assistive Devices Assistive Device Gait Belt,Front Wheeled Walker Orthotic/Prosthetic Devices or Brace: No Gait Deviations General Gait Pattern Decreased Stride Length, Decreased Feet Clearance, Narrow Based Gait Factors Limiting Gait Function Factors Limiting Gait Function Decreased Activity Tolerance, Decreased Strength,Difficulty Following Directions,Poor Balance,Poor Safety Awareness Comments Gait Comments See mobilitiy comments Stair Climbing Assessment Comments Stair Climbing Comments Did not assess, needs to complete 10 stairs prior to DC home. PT-Balance Assessment Sitting Balance and Reactions Static Sitting Balance Ability Normal Dynamic Sitting Balance Ability Good Standing Balance and Reactions Static Standing Balance Ability Good Dynamic Standing Balance Ability Fair Device Used FWW Comments Other Balance Tests/Deviations/Treatment See mobility comments. : M5 PT-IP Objective Assessments Start: 03/17/20 15:22 Freq: NEEDED Status: Active Protocol: Document 03/18/20 13:16 [facility] (Rec: 03/18/20 13:29 [facility] [id number]) Orientation Orientation/Cognition Level of Alertness Confusional State Language Function Ability No Deficits Noted Safety Awareness Decreased Safety Awareness Comments Pt had difficulty following conversations and would often chose off topic answers when answering questions. Strength Lower Extremity Strength Assessment Bilaterally Impaired M6 PT-IP Treatment Start: 03/17/20 15:22 Freq: NEEDED Status: Active Protocol: Document 03/19/20 10:45 SP (Rec: 03/19/20 16:53 SP [id number]) Physical Therapy Treatment Education Education Provided Safety Other Treatments Other Treatment Performed standign heel raises, marching , see mobility comments. M7 PT-IP Assessment and Plan Start: 03/17/20 15:22 Freq: NEEDED Status: Active Protocol: Document 03/19/20 10:45 SP (Rec: 03/19/20 16:53 SP [id number]) PT Summary Assessment and Plan Potential Rehabilitation Potential Good Status of Condition at Evaluation Evolving Summary Impairments Strength,Balance,Bed Mobility, Transfers,Gait,Activity Tolerance Assessment Summary Pt did well overall with mobility but showed some dec safety awareness when walking around and confusion when given instructions of where to go. At this time, unless she has someone at home, she may not be safe to do typical ADLs at home. She was cooperative with DIRECTOR PHYSICAL THERAPY today, but gait was slow, with dec stride length and dec foot clearance which puts her at risk for falls. Goals Bed Mobility Goal Independent Transfer Goal Independent Gait Goal Standby Assistance Gait Distance 150ft Other Goals Pt able to go up/down 10 stairs with rail SBA Days to Meet Goals 6 Frequency of Treatment Frequency Of Treatment Once a Day Treatment Plan Physical Therapy Treatment Plan Bed Mobility Training,Transfer Training,Gait Training, Therapeutic Exercise,Balance Retraining,Neuromuscular Re-ed Other Recommendations and Next Treatment work on gait and balance & Focus safety, stair training Recommendations To Nursing Amount of Assist Needed Standby Assistance Discharge Recommendations PT Discharge Recommendations Home with 10/06 Assist,Home Health,SNF Rehab,Acute Rehab Other Discharge Recommendations DC recommendations to be determined d/t current confusion, rounds physician wonders if this will be her current baseline and suggested SNF vs. inpatient rehab. Transportation Needs at Discharge Private Vehicle
--- NOTE | 2020-03-19 11:34 | P.PN_ITS ---
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 She is needing physical therapy daily for walking/gait and is needing occupational therapy for her chronic left shoulder and back problems. She is also needing speech therapy for cognitive evaluation. She has significant potential for cognitive rehabilitation in an inpatient unit as she has shown progress on a daily basis as the medications she has been on have been held and her post stroke symptoms have stabilized. It is unclear, with her baseline of complicated medical treatment, her extensive polypharmacy, her new frontal CVA with potential for personality changes and her altered cognition, possibly at baseline, how much of this is acute and how much of this is her personality type. There is no doubt that she continues to cognitively improve. She was seen by Psychiatry yesterday and is considered to be stable. Her glucose today is 216 with an otherwise normal BMP and a normal CBC with wh ite count of 13.4 and hemoglobin of 11.5. She is able to tell me that she was able to remember 4/5 words in a memory test this morning and she is fully oriented when I talk with her and does not become tangential or wonder away from the topic of conversation as she did yesterday. Her blood pressure has varied but is most recently 157/87. Exam Vital Signs (past 8 hours): - 03/19/20 07:00 03/19/20 09:13 Temperature 97.7 F Pulse Rate 124 H 98 H Respiratory Rate 16 Blood Pressure 178/94 H 157/87 H Pulse Oximetry 98 Oxygen Delivery Method Room Air Oxygen Flow Rate 0 Narrative Exam Narrative: Alert and oriented x3. No apparent distress. In today's conversation, as opposed to yesterday, she does not wander away from the topic or become confabulatory like she did yesterday. She is able to accurately answer several detail questions. She appears to be significantly improving daily. Heart is regular rate and rhythm without murmur Lungs are clear to auscultation bilaterally Extremities have no ankle edema. Objective Labs Result Diagrams: 03/19/20 05:10 03/19/20 05:10 Labs: Laboratory Results - last 24 hr 03/19/20 03/19/20 05:10 05:10 WBC 13.4 H RBC 4.00 Hgb 11.5 L Hct 35.2 L MCV 88.1 MCH 28.9 MCHC 32.7 RDW 12.9 Plt Count 291 Neut % (Auto) 66.8 Lymph % (Auto) 24.6 L [place] % (Auto) 7.8 Eos % (Auto) 0.3 L Baso % (Auto) 0.5 Neut # (Auto) 8900 H Lymph # (Auto) 3300 [place] # (Auto) 1000 H Eos # (Auto) 0 Baso # (Auto) 100 Sodium 139 Potassium 3.7 Chloride 107 Carbon Dioxide 23 BUN 13 Creatinine 0.52 Estimated GFR > 60.0 BUN/Creatinine Ratio 25.0 H Glucose 216 H Calcium 8.9 Assessment & Plan Assessment & Plan narrative: This is a 64-year-old female patient who presented to the ER with 2 days of decreasing mentation initially found to be hypoxemic upon arrival by EMS. 1. 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 and then the day prior to admission she was much more sleepy, incoherent, and threw up about 6 times when was able to briefly wake her up -per phone conversation with he states she has baseline memory impairment with difficulties with word finding and having to stop in mid conversation but otherwise independent in ADLs including driving, shopping etcetera, patient manages own medications -on initial OT evaluation 03/17 slums score 13/30 although patient not currently at baseline so unclear if she has true dementia vs mild cognitive impairment -Urine tox screen is positive for opiates and tricyclics both prescribed medications as well as marijuana, unknown last use. -multiple possible etiologies including: Subacute CVA - Right Frontal on MRI brain Drug toxicity related, patient on multiple psychoactive drugs including hydrocodone, zolpidem, gabapentin, cyclobenzaprine, tramadol Infection unlikely-patient afebrile, initial reactive WBC 17.5 with procalcitonin 0.05 x2, and WBC improving on its own Acute dehydration-patient with elevated lactic acid at 2.9, anion gap of 17 and acute kidney injury with elevation creatinine and elevated BUN/Cr -continue OT, Speech and PT evaluations -appreciate Psychiatry - Dr. Palumbo saw her 03/18. 2. Acute respiratory failure with hypoxemia, present on admission, resolved -patient has a history of asthma without reports of shortness of breath. EMS found the patient hypoxemic in the field with saturations in the 70s to low 80s, patient is documented to be at 96% on 7 L of oxygen upon arrival in the ER. On assessment the patient has shallow respirations without wheezing coarseness or crackles. -arterial blood gas finds a pH of 7.37, pCO2 39, PO2 is 80, bicarbonate of 23 with a base excess of -3 on 50% FiO2. PF ratio was 160. D-dimer was negative at 226. -CT of the chest finds no acute abnormalities and identifies vascular atherosclerosis. 3. Leukocytosis, reactive, present on admission, improving -no locus of infection is identified, patient is afebrile, urinalysis shows no infection, CT of the chest is negative physical exam is benign. -WBC trending down, procalcitonin is less than 0.05, CRP is less than 0.05. 13.4 on 03/19. -abdominal CT unremarkable 4. Metabolic acidosis secondary to dehydration, present on admission, resolved -patient had trace urine ketones, lactate of 2.9, anion gap of 17 with dry mucous membranes -patient with poor vascular access, patient too restless for placement of a adryan tral line, midline catheter was placed. -IVF and Telemetry stopped 03/19. 5. Acute kidney injury, secondary to dehydration, present on admission, resolved -patient with a creatinine of 1.21 on admission, Last creatinine 0.63, previous baseline from 02/03/2020 was 0.87. -urinalysis with 2+ protein, EGFR is 45.1 and calculated creatinine clearance is 47.18. 6. Diabetes type 2 with neuropathy, present on admission, active -patient hyperglycemic with a glucose of 218 on admission labs. Most recent A1c in January of 2020 was 7.2. -patient typically takes glipizide and metformin for glycemic management which are held. -continue sliding scale insulin, ADA diet 7. Chronic pain, present on admission, stable -patient is prescribed [place] 7.5/325 which is held related to altered mental status -patient is prescribed gabapentin 600 mg 3 times per day which was resumed -patient takes tramadol 50 mg 3 times daily as needed for pain which will be continued 8. Hypertension, present on admission, active -patient has elevated blood pressure upon arrival at 192/81 and continues remain hypertensive at 160-170 systolic range -continue lisinopril and atenolol per home routine 9. Acute rectal bleed, active -had episode of bright red blood per rectum associated with soft formed bowel movement on 03/17 -differential includes hemorrhoidal, diverticular -CT scan from ER did not show any acute findings -monitor H&H 10. Right Frontal CVA -Continue ASA 81 mg and add Plavix since this CVA occurred while on Aspirin -Echocardiogram and Carotid US ordered -continue PT/OT/Speech -She is improving steadily and would be a good candidate for intensive inpatient rehab for gait, cognition, shoulder problems
--- NOTE | 2020-03-19 14:17 | DI.ECHO.S_ITS ---
[place]---------+ [facility] +---------+ : : [address] [place] [address] : : : : [id number] : : : : Phone: [phone]+ Echocardiogram Report + + :Name: DAVE CALVILLO Study Date: 03/20/2020 Height: 60 in : :Hospital Weight: 132 lb : : Gender: Female BSA: 1.6 m2 : :: 1955 Age: 64 yrs BP: 179/99 mmHg: :Reason For Study: CVA : :Ordering Physician: Tobi : :Hospitalist Performed By: Nevin Solis : :Referring: Brady DORANTES E : + + Interpretation Summary HISTORY OF VSD CLOSURE The left ventricle is normal in size. Left ventricular systolic function is moderately reduced. The ejection fraction is estimated to be 35-40%. Septal motion is consistent with post-operative state. Diastolic parameters suggest a relaxation abnormality of the left ventricle, consistent with probable normal filling pressures. The right ventricle is normal size. Right ventricular systolic function is at the lower limits of normal. Pulmonary artery pressures cannot be estimated because of the lack of a measurable TR jet velocity but the IVC suggests a CVP of around 3 mmHg. The left atrium is mildly dilated. The right atrium is normal in size. There is no Doppler evidence for an interatrial shunt. Injection of contrast documented no interatrial shunt. There is no significant valvular heart disease. The aortic root is normal size. Procedure: A two-dimensional transthoracic echocardiogram with color flow and Doppler was performed. The study quality was technically adequate. Comparison is made with the echocardiogram of 10/24/2019. The patient was in normal sinus rhythm during the exam. Left Ventricle: The left ventricle is normal in size. There is normal left ventricular wall thickness. Left ventricular systolic function is moderately reduced. The ejection fraction is estimated to be 35-40%. Septal motion is consistent with post-operative state. There is mild to moderate global hypokinesis of the left ventricle. Diastolic parameters suggest a relaxation abnormality of the left ventricle, consistent with probable normal filling pressures. Right Ventricle: The right ventricle is normal size. Right ventricular systolic function is at the lower limits of normal. Atria: The left atrium is mildly dilated. The right atrium is normal in size. There is no Doppler evidence for an interatrial shunt. Injection of contrast documented no interatrial shunt. Mitral Valve: The mitral valve is normal in structure and function. There is trace mitral regurgitation. Aortic Valve: The aortic valve is trileaflet. The aortic valve opens well. There is no aortic valve stenosis. No aortic regurgitation is present. Tricuspid Valve: The tricuspid valve is normal in structure and function. Pulmonary artery pressures cannot be estimated because of the lack of a measurable TR jet velocity but the IVC suggests a CVP of around 3 mmHg. There is a trace or physiologic amount of tricuspid regurgitation. Pulmonic Valve: The pulmonic valve is normal in structure and function. There is a trace or physiologic amount of pulmonic regurgitation. There is no significant valvular heart disease. Great Vessels: The aortic root is normal size. The ascending aorta could not be visualized. The IVC is of normal diameter and collapses greater than 50% with a sniff. This suggests a low right atrial pressure of 3 mm Hg. Pericardium/ Pleura There is no pericardial effusion. There is no pleural effusion. MMode/2D Measurements & Calculations LVIDd: 4.8 cm LVOT diam: 2.0 cm LVIDs: 4.0 cm Ao root diam: 2.7 cm FS: 15.8 % Ao Arch Diam (Prox Trans): 2.0 cm EPSS: 1.1 cm IVSd: 0.74 cm LVPWd: 0.87 cm LV perez. diameter/BSA (cm/m^2): 3.0 LV sys. diameter/BSA (cm/m^2): 2.6 LA A2 area: 18.1 cm2 RA long axis: 4.9 cm LA A4 area: 17.7 cm2 RA area: 15.5 cm2 LA length (vol): 4.6 cm RA vol: 41.5 ml LA vol: 59.1 ml RA : 26.5 ml/m2 LA vol index: 37.8 ml/m2 RVD1 (basal): 3.3 cm TAPSE: 1.5 cm Doppler Measurements & Calculations Ao V2 max: 95.8 cm/sec LVOT Max Lance: 72.3 cm/sec Ao V2 mean: 65.6 cm/sec LV V1 max P.1 mmHg Ao max P.7 mmHg LV V1 VTI: 12.7 cm Ao mean P.0 mmHg LETHA(I,D): 2.1 cm2 Ao V2 VTI: 18.7 cm LETHA(V,D): 2.4 cm2 sev ratio: 0.68 LETHA indexed to BSA (cm^2/m^2): 1.4 MV E max lance: 47.6 cm/sec PA V2 max: 73.2 cm/sec MV A max lance: 64.5 cm/sec PA V2 mean: 50.3 cm/sec MV E/A: 0.74 PA mean P.2 mmHg Med Peak E' Lance: 4.9 cm/sec PA pr(Accel): 48.2 mmHg E/E' med: 9.7 Lat Peak E' Lance: 6.5 cm/sec E/E' lat: 7.3 E/e' average: 8.5 MV dec time: 0.16 sec SV(LVOT): 39.7 ml Reading Physician:03:27 PM
--- NOTE | 2020-03-19 15:39 | CM.DPNOTE ---
DCP Cont Patient discussed in multidisciplinary rounds; frontal lobe CVA confirmed. Patient's cognition improves daily. According to RN Eleanor, she has not needed to use po haldol ordered by Dr Palumbo yesterday as prn. Patient is calm and cooperative w/care, still confused w/some paranoia but pleasant Dr Bills and Dr Jauregui suggest Inpt Acute Rehab vs SNF. Spoke w/spouse Won over the phone who gave permission for referral to [facility]. Placed call to Magy at [facility], gave referral and she suggested 1. this referral would be best looked over by April and/or Calderon Saturday and 2. Auth through [facility] could not be started until then Patient getting COVID swab done today Spoke again w/pt's spouse Won who felt he could manage patient's needs at home since she seemed to have daily improvement of her cognition, Won requests home health, no agency preference. Reviewed this w/ Dr Jauregui who felt it was a reasonable option w/HH if patient continued to have another 24-48 hrs of improvement. Relayed above w/ spouse who was appreciative for the input. Placed call to [facility], gave referral to include signed F2F, HH order, H+P and therapy notes. DC Summary needed upon pt's DC; possible Saturday or Saturday P: DC likely home w/spouse and [facility] 24-48hrs b/u option is [facility] if they can accept and secure auth through [employer]. Need PAS[facility] if SNF [facility]
[2020-03-19] MEDS: ATORVASTATIN 20 MG TABLET 40 MG PO (17:20)
--- NOTE | 2020-03-19 18:08 | PC.NURSE ---
Pt is hallucinating, states she is seeing her kids and grandkids out of her room window States she is seeing animals out there too. Pt states people are recording us in this room and believes that alot of her personal information has been talked about. Patient has been talking about her . Pt reported to this nurse, People keep saying I tried to kill my grandchildren. Pt only wispers to this nurse when speaking in the room, states they are listening to us and points to the sprinkler in the room ceiling. This nurse redirected patient and informed her that was the fire sprinkeler and she states I know. Pt is using her tele monitor and acting as if it is her camera and taking photos out of her window. When asked what she is taking photos of, she states those animals and children
[2020-03-20] VITALS (10 sets, daily range): BP systolic 148–185; BP diastolic 71–91; PULSE 83–105; RESP 16–18; TEMP 36.4–37.1; O2SAT 95–100
--- NOTE | 2020-03-20 01:49 | PC.NURSE ---
Addendum entered by Rachel Licona R.N. 03/20/20 05:10: Complains of headache and left LE pain with severity of 5/10; medicated with Tylenol Original Note: Patient is alert and oriented but has some difficulty with word finding. Impulsive and setting off bed alarm at start of shift. Had to get up to look out window as she thought her was standing out there waiting for her. Breath sounds CTA with RA sat of 100%; on continuous pulse oximetry. HRR but intermittently tachy into low 100's. BP is also trending high at 172/99. Denies nausea. BT hypoactive but is passing flatus. Is able to turn self in bed. When up uses walker and SBA for safety. Has been continent of urine. Bilateral calf SCD's put on at start of shift. Denies pain. Fall risk score is high and bed alarm is activated. Currently on contact/droplet/special aerolization precautions until COVID test resulted.
[2020-03-20 01:54] LABS: COVID19 Sendout Not Detected (Not Detect)
[2020-03-20] MEDS: ACETAMINOPHEN 325 MG TABLET 650 MG PO ×2 (05:08→20:39)
[2020-03-20] MEDS: INSULIN ASPART 100 UNIT/ML INSULN PEN SUBCUT ×4 (08:19→20:40)
[2020-03-20] MEDS: ASPIRIN EC 81 MG TABLET PO (08:23)
[2020-03-20] MEDS: CLOPIDOGREL 75 MG TABLET PO (08:23)
[2020-03-20] MEDS: lisinopriL 10 MG TABLET PO ×2 (08:24→15:02)
[2020-03-20] MEDS: atenoloL 25 MG TABLET PO ×2 (08:24→15:02)
[2020-03-20] MEDS: GABAPENTIN 600 MG TABLET PO ×3 (08:24→20:39)
[2020-03-20] MEDS: DULOXETINE 30 MG CAPSULE PO ×2 (08:24→20:39)
[2020-03-20] MEDS: TAMSULOSIN 0.4 MG CAPSULE PO (08:25)
[2020-03-20] MEDS: SODIUM CHLORIDE 0.9% FLUSH 10 ML IV ×2 (08:25→20:44)
--- NOTE | 2020-03-20 10:16 | PT.IPTN ---
Current Diagnoses Delirium due to known physiological condition (03/16/20) Major depressive disorder, recurrent, in full remission (03/16/20) Encephalopathy, unspecified (03/16/20) Metabolic encephalopathy (03/16/20) Altered mental status, unspecified (03/16/20) Physical Therapy Treatment Note M2 PT-IP Current Condition Start: 03/17/20 15:22 Freq: NEEDED Status: Active Protocol: Document 03/18/20 13:16 [facility] (Rec: 03/18/20 13:29 [facility] [id number]) Physical Therapy Current Condition Current Condition Evaluation Date 03/18/20 Treatment Diagnosis encephalopathy, weakness Weight Bearing Status Weight Bearing Status Full Weight Bearing M3 PT-IP Subjective Start: 03/17/20 15:22 Freq: NEEDED Status: Active Protocol: Document 03/20/20 10:16 AB (Rec: 03/20/20 12:25 AB [id number]) Subjective Physical Therapy Visit Type Type Treatment Note Visit Start Time 10:16 Visit Stop Time 10:37 Total Visit Minutes 21 Number of OPERATION SHIFT SUPERVISOR Visits 0 Physical Therapy Visit Comments Patient Comments pt is agreeable to do PT M4 PT-IP Mobility and Gait Start: 03/17/20 15:22 Freq: NEEDED Status: Active Protocol: Document 03/20/20 10:16 AB (Rec: 03/20/20 12:25 AB [id number]) PT-Bed Mobility Assessment Supine to Sit Supine to Sit Standby Assistance PT-Transfer Assessment Sit to and From Stand Sit to and from Stand Contact Guard Assistance, Minimal Assistance,1 Person Assistance,Use of Upper Extremities Equipment Transfer Assistive Device Gait Belt,Front Wheeled Walker Orthotic/Prosthetic Devices or Brace: No Transfers Transfer Destination Chair Transfer Technique ambulated using FWW Transfer Ability Level of Assist Contact Guard Assistance, Minimal Assistance,1 Person Assistance,Use of Upper Extremities Comments Mobility Comments pt completed supine to sit SBA . able to put her pants and socks on in bed without assistance. completed sit to stand CGA to min A with unsteady initial standing. stated that her L knee is weak and occasionally gives out on her. ambulated ~ 50 ft towards the stairs using FWW CGA to min A and cues to increase step width and quads activation. pt is very guarded with ambulation. pt completed up/down 3 steps using B rails ascending CGA to min A and descended using R rail and DESKTOP ENGINEER on L. pt only has 1 rail on her steps at home and stated that spouse usually holds on to her other side to assist. pt ambulated back to her room using FWW CGA to min A. set up pt on the chair. completed LE exercises sitting on chair. photovoltaic technician came in and pt needed to get back in bed for echo. completed stand pivot transfer using FWW CGA to min A and cues. pt completed sit to supine SBA. Left pt with techician in room. Gait Assessment Gait Gait Assistance Required: Contact Guard Assist,Minimum Assistance,1 Person Assist Distance (Feet) 50 Able to Maintain Weight Bearing Status Yes During Gait Assistive Devices Assistive Device Gait Belt,Front Wheeled Walker Orthotic/Prosthetic Devices or Brace: No Gait Deviations General Gait Pattern Antalgic,Decreased Stride Length,Decreased Feet Clearance,Narrow Based Gait Factors Limiting Gait Function Factors Limiting Gait Function Decreased Activity Tolerance, Decreased Strength,Poor Balance,Poor Safety Awareness Comments Gait Comments pls refer to mobility section for details Stair Climbing Assessment Evaluation Level of Assist On Stairs Contact Guard Assistance, Minimal Assistance,1 Person Assistance Devices Stair Climbing Assistive Devices Left Railing Technique/Endurance Stair Climbing Direction Ascend and Descend Stair Climbing Technique Step Over Step Number of Steps Climbed 3 Stair Climbing Set # Repetitions (reps) 1 Comments Stair Climbing Comments pls refer to mobility section for details M5 PT-IP Objective Assessments Start: 03/17/20 15:22 Freq: NEEDED Status: Active Protocol: Document 03/18/20 13:16 [facility] (Rec: 03/18/20 13:29 [facility] [id number]) Orientation Orientation/Cognition Level of Alertness Confusional State Language Function Ability No Deficits Noted Safety Awareness Decreased Safety Awareness Comments Pt had difficulty following conversations and would often chose off topic answers when answering questions. Strength Lower Extremity Strength Assessment Bilaterally Impaired M6 PT-IP Treatment Start: 03/17/20 15:22 Freq: NEEDED Status: Active Protocol: Document 03/20/20 10:16 AB (Rec: 03/20/20 12:25 AB [id number]) Physical Therapy Treatment Exercises Exercises Ankle Pumps,Gluteal Sets,Quad Sets Education Education Provided Safety M7 PT-IP Assessment and Plan Start: 03/17/20 15:22 Freq: NEEDED Status: Active Protocol: Document 03/20/20 10:16 AB (Rec: 05/03/20 12:25 AB [id number]) PT Summary Assessment and Plan Potential Rehabilitation Potential Good Summary Impairments Pain,ROM,Strength,Balance, Coordination,Sensation, Cognition,Bed Mobility, Transfers,Gait,Activity Tolerance Progress Towards Goals Progressing Toward Goals Assessment Summary pt requiring CGA to min A with mobility and cues for techniques and safety. pt is very guarded with ambulation and is unsteady. Pt. with frontal lobe CVA and will benefit from inpatient rehab to improve mobility independence. Goals Bed Mobility Goal Independent Transfer Goal Independent,Front Wheeled Walker Gait Goal Standby Assistance,Front Wheel Walker Gait Distance 150ft Other Goals up/down 10 steps 1 rail SBA Days to Meet Goals 6 Frequency of Treatment Frequency Of Treatment Once a Day Treatment Plan Physical Therapy Treatment Plan Bed Mobility Training,Transfer Training,Gait Training, Therapeutic Exercise,Balance Retraining,Neuromuscular Re-ed Other Recommendations and Next Treatment ambulation, stair climbing Focus Recommendations To Nursing Amount of Assist Needed 1 Person Assist Discharge Recommendations PT Discharge Recommendations Acute Rehab Transportation Needs at Discharge Private Vehicle,Wheelchair/ Cabulance
--- NOTE | 2020-03-20 10:16 | PT.IPTN ---
Current Diagnoses Delirium due to known physiological condition (03/16/20) Major depressive disorder, recurrent, in full remission (03/16/20) Encephalopathy, unspecified (03/16/20) Metabolic encephalopathy (03/16/20) Altered mental status, unspecified (03/16/20) Physical Therapy Treatment Note M2 PT-IP Current Condition Start: 03/17/20 15:22 Freq: NEEDED Status: Active Protocol: Document 03/18/20 13:16 [facility] (Rec: 03/18/20 13:29 [facility] [id number]) Physical Therapy Current Condition Current Condition Evaluation Date 03/18/20 Treatment Diagnosis encephalopathy, weakness Weight Bearing Status Weight Bearing Status Full Weight Bearing M3 PT-IP Subjective Start: 03/17/20 15:22 Freq: NEEDED Status: Active Protocol: Document 03/20/20 10:16 AB (Rec: 03/20/20 12:25 AB [id number]) Subjective Physical Therapy Visit Type Type Treatment Note Visit Start Time 10:16 Visit Stop Time 10:37 Total Visit Minutes 21 Number of PACKING SUPERVISOR Visits 0 Physical Therapy Visit Comments Patient Comments pt is agreeable to do PT M4 PT-IP Mobility and Gait Start: 03/17/20 15:22 Freq: NEEDED Status: Active Protocol: Document 03/20/20 10:16 AB (Rec: 03/20/20 12:25 AB [id number]) PT-Bed Mobility Assessment Supine to Sit Supine to Sit Standby Assistance PT-Transfer Assessment Sit to and From Stand Sit to and from Stand Contact Guard Assistance, Minimal Assistance,1 Person Assistance,Use of Upper Extremities Equipment Transfer Assistive Device Gait Belt,Front Wheeled Walker Orthotic/Prosthetic Devices or Brace: No Transfers Transfer Destination Chair Transfer Technique ambulated using FWW Transfer Ability Level of Assist Contact Guard Assistance, Minimal Assistance,1 Person Assistance,Use of Upper Extremities Comments Mobility Comments pt completed supine to sit SBA . able to put her pants and socks on in bed without assistance. completed sit to stand CGA to min A with unsteady initial standing. stated that her L knee is weak and occasionally gives out on her. ambulated ~ 50 ft towards the stairs using FWW CGA to min A and cues to increase step width and quads activation. pt is very guarded with ambulation. pt completed up/down 3 steps using B rails ascending CGA to min A and descended using R rail and MOSAIC TECHNICIAN on L. pt only has 1 rail on her steps at home and stated that spouse usually holds on to her other side to assist. pt ambulated back to her room using FWW CGA to min A. set up pt on the chair. completed LE exercises sitting on chair. cryptographic technician came in and pt needed to get back in bed for echo. completed stand pivot transfer using FWW CGA to min A and cues. pt completed sit to supine SBA. Left pt with techician in room. Gait Assessment Gait Gait Assistance Required: Contact Guard Assist,Minimum Assistance,1 Person Assist Distance (Feet) 50 Able to Maintain Weight Bearing Status Yes During Gait Assistive Devices Assistive Device Gait Belt,Front Wheeled Walker Orthotic/Prosthetic Devices or Brace: No Gait Deviations General Gait Pattern Antalgic,Decreased Stride Length,Decreased Feet Clearance,Narrow Based Gait Factors Limiting Gait Function Factors Limiting Gait Function Decreased Activity Tolerance, Decreased Strength,Poor Balance,Poor Safety Awareness Comments Gait Comments pls refer to mobility section for details Stair Climbing Assessment Evaluation Level of Assist On Stairs Contact Guard Assistance, Minimal Assistance,1 Person Assistance Devices Stair Climbing Assistive Devices Left Railing Technique/Endurance Stair Climbing Direction Ascend and Descend Stair Climbing Technique Step Over Step Number of Steps Climbed 3 Stair Climbing Set # Repetitions (reps) 1 Comments Stair Climbing Comments pls refer to mobility section for details M5 PT-IP Objective Assessments Start: 03/17/20 15:22 Freq: NEEDED Status: Active Protocol: Document 03/18/20 13:16 [facility] (Rec: 03/18/20 13:29 [facility] [id number]) Orientation Orientation/Cognition Level of Alertness Confusional State Language Function Ability No Deficits Noted Safety Awareness Decreased Safety Awareness Comments Pt had difficulty following conversations and would often chose off topic answers when answering questions. Strength Lower Extremity Strength Assessment Bilaterally Impaired M6 PT-IP Treatment Start: 03/17/20 15:22 Freq: NEEDED Status: Active Protocol: Document 03/20/20 10:16 AB (Rec: 03/20/20 12:25 AB [id number]) Physical Therapy Treatment Exercises Exercises Ankle Pumps,Gluteal Sets,Quad Sets Education Education Provided Safety M7 PT-IP Assessment and Plan Start: 03/17/20 15:22 Freq: NEEDED Status: Active Protocol: Document 03/20/20 10:16 AB (Rec: 05/03/20 12:25 AB [id number]) PT Summary Assessment and Plan Potential Rehabilitation Potential Good Summary Impairments Pain,ROM,Strength,Balance, Coordination,Sensation, Cognition,Bed Mobility, Transfers,Gait,Activity Tolerance Progress Towards Goals Progressing Toward Goals Assessment Summary pt requiring CGA to min A with mobility and cues for techniques and safety. pt is very guarded with ambulation and is unsteady. d/c plan depending if spouse will be able to assist pt at home but at this time may benefit from inpt rehab. Tx frequency changed from once a day to twice a day as pt will benefit from increase PT interventions to improve mobility and assess consistency with mobility. Goals Bed Mobility Goal Independent Transfer Goal Independent,Front Wheeled Walker Gait Goal Standby Assistance,Front Wheel Walker Gait Distance 150ft Other Goals up/down 10 steps 1 rail SBA Days to Meet Goals 6 Frequency of Treatment Frequency Of Treatment Twice a Day Treatment Plan Physical Therapy Treatment Plan Bed Mobility Training,Transfer Training,Gait Training, Therapeutic Exercise,Balance Retraining,Neuromuscular Re-ed Other Recommendations and Next Treatment ambulation, stair climbing Focus Recommendations To Nursing Amount of Assist Needed 1 Person Assist Discharge Recommendations PT Discharge Recommendations Acute Rehab Transportation Needs at Discharge Private Vehicle,Wheelchair/ Cabulance
--- NOTE | 2020-03-20 10:40 | PC.NURSE ---
Addendum entered by Fiordaliza Marrero R.N. 03/20/20 14:37: While pt getting Carotid ECHO, BP taken on left upper arm was 163/90, pulse 105, right lower arm was 196/105, pulse 97. Upon reassessment, pt was sitting in recliner chair. Left upper arm was 155/91, pulse 101 and right lower arm was 149/79, pulse 100. Dr. Jauregui made aware at 1420. had already placed new increased BP orders. Addendum entered by Fiordaliza Marrero R.N. 03/20/20 14:28: Won called back again, he will be here Wednesday 03/21 at 1100 for PT health careers instructor training. Won dropped off [employer], cell phone, and gang hemstitching machine operator that goes into outlet, no cord for pt. Addendum entered by Fiordaliza Marrero R.N. 03/20/20 14:11: Spoke with pt's Won at 1410 via phone, update given, okay with pt who was talking with Won on the hospital phone in her room. Won wanted to come and visit the pt, explained policy of no visitors at this time unless is needed for caregiver training. Won agreeable at this time. Addendum entered by Fiordaliza Marrero R.N. 03/20/20 12:41: At 1235, request to Dr. Jauregui if appropriate to re-order pt's home hormone medications X2 per pt request. Original Note: Day Shift- Pt Alert and oriented X4. At shift change this AM, pt was reported seeing picture frames of her and family members pointing at the ceiling. Assured pt there were no picture frames in that area. Pt then focused her attention to the garbage can area under the sink and stated the picture frames where also located there and appeared confused as to the purpose of the light behind the garbage can that was on and used as a night light. Pt has 1:1 CHICKEN HANGER care, pt impulsive, OOB frequently wanting to ambulate in room and view/sit by window in room. Pt took pills whole a few at a time with water without difficulty.
--- NOTE | 2020-03-20 12:47 | PM.PN.1 ---
Subjective Subjective Date Patient Seen: 03/20/20 Time Patient Seen: 12:47 Interval history: She is seen in her room here today to follow-up her frontal lobe CVA, altered mental status, visual hallucinations and type 2 diabetes mellitus. When I speak with her she is coherent and is not tangential or delusional. The nursing staff report that at least once per shift she seems to have visual hallucinations, focusing on picture frames on the ceiling that are not really there. She continues to have a person sitting next to her for close observation but that can probably be stopped at this time. Her carotid ultrasounds show bilateral less than 50% stenosis. Her echocardiogram report is pending. She would like to resume her estradiol and medroxyprogesterone. She tells me that she will be going home because her sister will be there to help her. She says that she has been doing some walking in the hallway and also climbing stairs with physical therapy. Her blood pressure is 160/90. Her covid test was negative yesterday. The only stroke symptoms she mentions/is aware of is that she has trouble picking her words when she is rushing to talk. Exam Vital Signs (past 8 hours): - 03/20/20 07:00 03/20/20 09:06 03/20/20 11:38 Temperature 97.9 F 98.2 F Pulse Rate 103 H 92 H Respiratory Rate 16 18 Blood Pressure 160/90 H 161/88 H Pulse Oximetry 98 100 97 Oxygen Delivery Method Room Air Oxygen Flow Rate 0 Narrative Exam Narrative: She is alert and oriented x3. She is in no apparent distress. She is not actively delusional or hallucinating during my visit. Heart is regular rate and rhythm without murmur. Lungs are clear to auscultation bilaterally Extremities have no ankle edema Neurological exam shows stable and symmetric upper and lower extremity strength. There is no delay in her speech and there is no slurring of her words. Objective Labs Result Diagrams: 03/19/20 05:10 03/19/20 05:10 Labs: Laboratory Results - last 24 hr 03/19/20 15:00 COVID-19 PCR Not detected Assessment & Plan Assessment & Plan narrative: This is a 64-year-old female patient who presented to the ER with 2 days of decreasing mentation initially found to be hypoxemic upon arrival by EMS. 1. Acute encephalopathy, undetermined etiology, present on admission, active -patient initially somnolent and unable to respond to commands, subsequently has woken up but confused -per she became more sleepy a couple of days SOCIAL SERVICE DIRECTOR and then the day prior to admission she was much more sleepy, incoherent, and threw up about 6 times when was able to briefly wake her up -per phone conversation with he states she has baseline memory impairment with difficulties with word finding and having to stop in mid conversation but otherwise independent in ADLs including driving, shopping etcetera, patient manages own medications -on initial OT evaluation 03/17 slums score 13/30 although patient not currently at baseline so unclear if she has true dementia vs mild cognitive impairment -Urine tox screen is positive for opiates and tricyclics both prescribed medications as well as marijuana, unknown last use. -multiple possible etiologies including: Subacute CVA - Right Frontal on MRI brain Drug toxicity related, patient on multiple psychoactive drugs including hydrocodone, zolpidem, gabapentin, cyclobenzaprine, tramadol Infection unlikely-patient afebrile, initial reactive WBC 17.5 with procalcitonin 0.05 x2, and WBC improving on its own Acute dehydration-patient with elevated lactic acid at 2.9, anion gap of 17 and acute kidney injury with elevation creatinine and elevated BUN/Cr -continue OT, Speech and PT evaluations -appreciate Psychiatry - Dr. Palumbo saw her 03/18. -as of 03/20 she continues to improve with speech and behavior with only occasional hallucinations reported to nursing staff. 2. Acute respiratory failure with hypoxemia, present on admission, resolved -patient has a history of asthma without reports of shortness of breath. EMS found the patient hypoxemic in the field with saturations in the 70s to low 80s, patient is documented to be at 96% on 7 L of oxygen upon arrival in the ER. On assessment the patient has shallow respirations without wheezing coarseness or crackles. -arterial blood gas finds a pH of 7.37, pCO2 39, PO2 is 80, bicarbonate of 23 with a base excess of -3 on 50% FiO2. PF ratio was 160. D-dimer was negative at 226. -CT of the chest finds no acute abnormalities and identifies vascular atherosclerosis. 3. Leukocytosis, reactive, present on admission, improving -no locus of infection is identified, patient is afebrile, urinalysis shows no infection, CT of the chest is negative physical exam is benign. -WBC trending down, procalcitonin is less than 0.05, CRP is less than 0.05. 13.4 on 03/19. -abdominal CT unremarkable 4. Metabolic acidosis secondary to dehydration, present on admission, resolved -patient had trace urine ketones, lactate of 2.9, anion gap of 17 with dry mucous membranes -patient with poor vascular access, patient too restless for placement of a central line, midline catheter was placed. -IVF and Telemetry stopped 03/19. 5. Acute kidney injury, secondary to dehydration, present on admission, resolved -patient with a creatinine of 1.21 on admission, Last creatinine 0.63, previous baseline from 02/03/2020 was 0.87. -urinalysis with 2+ protein, EGFR is 45.1 and calculated creatinine clearance is 47.18. 6. Diabetes type 2 with neuropathy, present on admission, active -patient hyperglycemic with a glucose of 218 on admission labs. Most recent A1c in January of 2020 was 7.2. -patient typically takes glipizide and metformin for glycemic management which are held. -continue sliding scale insulin, ADA diet 7. Chronic pain, present on admission, stable -patient is prescribed [place] 7.5/325 which is held related to altered mental status -patient is prescribed gabapentin 600 mg 3 times per day which was resumed -patient takes tramadol 50 mg 3 times daily as needed for pain which will be continued 8. Hypertension, present on admission, active -patient has elevated blood pressure upon arrival at 192/81 and continues remain hypertensive at 160-170 systolic range -increase lisinopril and atenolol doses to 20 mg and 50 mg on 03/20 9. Acute rectal bleed, active -had episode of bright red blood per rectum associated with soft formed bowel movement on 03/17 -differential includes hemorrhoidal, diverticular -CT scan from ER did not show any acute findings -monitor H&H 10. Right Frontal CVA -Continue ASA 81 mg and added Plavix since this CVA occurred while on Aspirin -Echocardiogram done and reading pending 03/20 -Bilateral less than 50% stenosis on carotid scan -continue PT/OT/Speech -She is improving steadily and would be a good candidate for intensive inpatient rehab for gait, cognition, shoulder problems for discharge planned 03/21. Disposition is discharge home or to nursing home rehab or inpatient rehab on 03/21.
--- NOTE | 2020-03-20 13:45 | PT.IPTN ---
Current Diagnoses Delirium due to known physiological condition (03/16/20) Major depressive disorder, recurrent, in full remission (03/16/20) Encephalopathy, unspecified (03/16/20) Metabolic encephalopathy (03/16/20) Altered mental status, unspecified (03/16/20) Physical Therapy Treatment Note M2 PT-IP Current Condition Start: 03/17/20 15:22 Freq: NEEDED Status: Active Protocol: Document 03/18/20 13:16 [facility] (Rec: 03/18/20 13:29 [facility] [id number]) Physical Therapy Current Condition Current Condition Evaluation Date 03/18/20 Treatment Diagnosis encephalopathy, weakness Weight Bearing Status Weight Bearing Status Full Weight Bearing M3 PT-IP Subjective Start: 03/17/20 15:22 Freq: NEEDED Status: Active Protocol: Document 03/20/20 13:45 AB (Rec: 03/20/20 14:35 AB [id number]) Subjective Physical Therapy Visit Type Type Treatment Note Visit Start Time 13:45 Visit Stop Time 14:05 Total Visit Minutes 20 Number of BILINGUAL SALES CONSULTANT Visits 0 Physical Therapy Visit Comments Patient Comments pt agreeable to do PT; stated that she is tired M4 PT-IP Mobility and Gait Start: 03/17/20 15:22 Freq: NEEDED Status: Active Protocol: Document 03/20/20 13:45 AB (Rec: 03/20/20 14:35 AB [id number]) PT-Transfer Assessment Sit to and From Stand Sit to and from Stand Contact Guard Assistance,1 Person Assistance,Use of Upper Extremities Equipment Transfer Assistive Device Gait Belt,Front Wheeled Walker Orthotic/Prosthetic Devices or Brace: No Gait Assessment Gait Gait Assistance Required: Contact Guard Assist,1 Person Assist Distance (Feet) 50 Able to Maintain Weight Bearing Status Yes During Gait Assistive Devices Assistive Device Gait Belt,Front Wheeled Walker Orthotic/Prosthetic Devices or Brace: No Gait Deviations General Gait Pattern Antalgic,Decreased Stride Length,Decreased Feet Clearance,Narrow Based Gait Factors Limiting Gait Function Factors Limiting Gait Function Decreased Activity Tolerance, Decreased Strength,Difficulty Following Directions,Poor Balance,Poor Safety Awareness Comments Gait Comments pt sitting on chair. c/o feeling tired but agreed to do PT. completed sit to stand CGA and ambulated towards the stairs ~ 50 ft CGA using FWW. pt with antalgic gait and narrow ROCIO with pt tending to cross legs during ambulation. asked pt if she walks this way from before and stated that she does not and that she has more tingling sensation on LLE from the thigh down to her feet this time but able LE is not numb and able to know where she places her LE. pt completed up/down stairs using L rail ascending and BOX REPAIRER on R side CGA to min A and cues. pt ambulated back to her room using FWW and wants to stay up on chair. positioned pt on chair. informed pt regarding possible caregiver training with spouse. pt stated that her sister will be the one who is going to assist her. Called pt's spouse to arrange for caregiver training and voice message left. informed business case analyst. Nurse then came to inform PT that pt's spouse call and nurse will call him back to arrange for caregiver training ~ 1030 - 11 am tomorrow 04/10/20. Stair Climbing Assessment Evaluation Level of Assist On Stairs Contact Guard Assistance, Minimal Assistance,1 Person Assistance Devices Stair Climbing Assistive Devices Left Railing Technique/Endurance Stair Climbing Direction Ascend and Descend Stair Climbing Technique Step Over Step,Step to Step Number of Steps Climbed 3 Stair Climbing Set # Repetitions (reps) 1 Comments Stair Climbing Comments completed ascending stairs with L rail and R BOX REPAIRER CGA to min A step over step patter and descending stairs with R rail and L BOX REPAIRER min A with step to step pattern. cues provided for safety M5 PT-IP Objective Assessments Start: 03/17/20 15:22 Freq: NEEDED Status: Active Protocol: Document 03/18/20 13:16 [facility] (Rec: 03/18/20 13:29 [facility] [id number]) Orientation Orientation/Cognition Level of Alertness Confusional State Language Function Ability No Deficits Noted Safety Awareness Decreased Safety Awareness Comments Pt had difficulty following conversations and would often chose off topic answers when answering questions. Strength Lower Extremity Strength Assessment Bilaterally Impaired M6 PT-IP Treatment Start: 03/17/20 15:22 Freq: NEEDED Status: Active Protocol: Document 03/20/20 13:45 AB (Rec: 03/20/20 14:35 AB [id number]) Physical Therapy Treatment Education Education Provided Safety M7 PT-IP Assessment and Plan Start: 03/17/20 15:22 Freq: NEEDED Status: Active Protocol: Document 03/20/20 13:45 AB (Rec: 03/20/20 14:35 AB [id number]) PT Summary Assessment and Plan Potential Rehabilitation Potential Good Summary Impairments Pain,ROM,Strength,Balance, Coordination,Sensation, Cognition,Bed Mobility, Transfers,Gait,Activity Tolerance Progress Towards Goals Slow Progress due to Medical Issues,Slow Progress - Other Assessment Summary pt requiring CGA to min A with mobility. Attempted to contact pt's spouse to arrange for caregiver training and left voice message. pt may go home if family will be able to provide assistance needed as pt has decrease safety awareness affecting functional independence. will continue to assess pt's progress. Goals Bed Mobility Goal Independent Transfer Goal Independent,Front Wheeled Walker Gait Goal Standby Assistance,Front Wheel Walker Gait Distance 150ft Other Goals up/down 10 steps 1 rail SBA Days to Meet Goals 6 Frequency of Treatment Frequency Of Treatment Twice a Day Treatment Plan Physical Therapy Treatment Plan Bed Mobility Training,Transfer Training,Gait Training, Therapeutic Exercise,Balance Retraining,Neuromuscular Re-ed Other Recommendations and Next Treatment ambulation, stair climbing Focus Recommendations To Nursing Amount of Assist Needed 1 Person Assist Discharge Recommendations PT Discharge Recommendations Home with Assistance,Home Health,Acute Rehab Transportation Needs at Discharge Private Vehicle,Wheelchair/ Cabulance
--- NOTE | 2020-03-20 13:47 | CM.DPNOTE ---
DCP/note: Reviewed chart. Current d/c plan is home with HH. Orders and F2F obtained and faxed to [facility] on 03-19-20. Per provider patient will be medically stable for discharge tomorrow 03-21-20. Placed call to Isabella at [facility] with updated information. Isabella reports that she will put patient on list to be seen at home on 03-22-20. [facility] does need d/c summary faxed to them once available. In addition, to the above spoke with ST and PT both report patient recommended to d/c home with HH and support from family. Will contact spouse/family prior to d/c to provide them with above information. P: Home with [facility] when medically stable. Hopeful that it will be tomorrow 03-21-20. GIDEON Noel
--- NOTE | 2020-03-20 14:18 | DI.US.S_ITS ---
PROCEDURE: US CAROTID DOPPLER BI INDICATIONS: new right frontal CVA TECHNIQUE: Color and pulse Doppler interrogation was performed of both carotid systems, with image documentation and velocity measurements. COMPARISON: None. FINDINGS: Stenosis calculations are based on SRU (Society of Radiologists in Ultrasound) criteria. Right side: The right common carotid artery is normal in course and caliber. There is mild irregular plaque evident within the right carotid bulb that extends into the proximal right internal carotid artery. On the grayscale images there is approximately 40-50% luminal narrowing. The flow velocities and waveforms of the right carotid system are within normal limits. Brachial blood pressure: 196/105 mm Hg. Common carotid artery peak systolic velocity: 58 cm/sec. Internal carotid artery peak systolic velocity: 55 cm/sec. Internal carotid artery end diastolic velocity: 17 cm/sec. External carotid artery peak systolic velocity: 44 cm/sec. ICA/CCA peak systolic ratio: 0.9. Percent internal carotid artery stenosis: Less than 50%. Vertebral artery: Flow direction is antegrade. Left side: The left common carotid artery is normal in course and caliber without significant atherosclerosis. However, there is minimal echogenic plaque evident within the left carotid bulb that results in approximately 10-20% narrowing of the lumen of the vessel. The flow velocities and waveforms throughout the left carotid system appear to be within normal limits. Brachial blood pressure: 163/90 mm Hg. Common carotid artery peak systolic velocity: 59 cm/sec. Internal carotid artery peak systolic velocity: 53 cm/sec. Internal carotid artery end diastolic velocity: 13 cm/sec. External carotid artery peak systolic velocity: 74 cm/sec. ICA/CCA peak systolic ratio: 0.9. Percent internal carotid artery stenosis: Less than 50%. Vertebral artery: Flow direction is antegrade. IMPRESSION: 1. Mild to moderate atherosclerosis of the bilateral internal carotid arteries (right greater than left) results in less than 50% narrowing of the lumen of the vessel. 2. No areas of high-grade narrowing or occlusion. Dictated by: Vasquez Reddy M.D. on 03/20/2020 at 9:20 Approved by: Vasquez Reddy M.D. on 03/20/2020 at 9:23
--- NOTE | 2020-03-20 14:36 | ST.IPSLE ---
Visit Care Team Role Provider Type Jose Brito MD Primary Care Provider Physician Specialty: Internal Medicine Address: [address] [place] [address], [place] [address], [place], [address] Email: [email or web address] Murtaza aPlumbo DO Other Providers Physician Specialty: Psychiatry Address: [address] [place] [address], [facility], [place], [address] Email: [email or web address] PEPE Coto Family Provider Advanced Private Branch Exchange Service Adviser Specialty: Pain Management Address: [address] [place] [address], [place], [address] Email: [email or web address] DO Emergency Provider Physician Specialty: Emergency Medicine Address: [address] [place] [address], [address] Email: [email or web address] PEPE Yousif Admit Provider Physician Attending Provider Specialty: Internal Medicine Address: [address] [place] [address], [address] Email: [email or web address] Current Diagnoses Delirium due to known physiological condition (03/16/20) Major depressive disorder, recurrent, in full remission (03/16/20) Encephalopathy, unspecified (03/16/20) Metabolic encephalopathy (03/16/20) Altered mental status, unspecified (03/16/20) Past Medical History (Last Reviewed 03/16/20 @ 07:01 by PEPE Yousif) Back pain (Chronic Medical 03/19/14) CAD (coronary atherosclerotic disease) (Chronic Medical ~1998) stent 1998 Diabetic peripheral neuropathy (Chronic Medical 11/10/15) Fibromyalgia (Chronic Medical 03/12/17) Foraminal stenosis of lumbosacral region (Chronic Medical) GERD (gastroesophageal reflux disease) (Chronic Medical) Herniated disc (Acute Medical) Hypertension (Chronic Medical) Mixed hyperlipidemia (Chronic Medical) Myocardial infarction (Acute Medical ~1998) Recurrent major depressive disorder, in full remission (Chronic Medical) Type 2 diabetes mellitus with hyperglycemia (Chronic Medical) Type 2 diabetes mellitus without complication (Chronic Medical) Unspecified asthma (Chronic Medical) Speech-Language Pathology Speech/Language Eval ADHESION TESTER Language Evaluation Start: 03/20/20 13:37 Freq: Status: Active Protocol: Document 03/20/20 13:37 LL (Rec: 03/20/20 14:34 LL [id number]) Language Evaluation Session Time Visit Start Time 12:50 Visit Stop Time 13:20 Total Visit Minutes 30 Next Note Type Next Note Type Treatment Note Referral Referring Physician Dr. 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 Lorenzo Farias is a 64-year-old female with a history significant for type 2 diabetes with peripheral neuropathy, CAD, NM, asthma, hypertension, hyperlipidemia, chronic pain with fibromyalgia and foraminal stenosis to the lumbar sacral area was brought into the ER by her who reports 2 days of worsening mental status. There has been no change in the patient's medications or complaints of fevers or chills or sick contacts. Patient is not had any falls trauma or head injuries. Upon arrival EMS at the patient's home is reported the patient's initial pulse ox was in the 70s to low 80s.The patient is unable to participate in subjective analysis. The patient will make eye contact but it is nonverbal and will not follow commands and does respond to noxious stimulus. There has been no reports per the of headaches or dizziness, chest pain, shortness of breath or cough. She has reported no abdominal pain has not been nauseated or vomited. To the best of his knowledge she has had no change in bowel or bladder habits. On tox screen she is positive for opiates which she is prescribed positive for tricyclic antidepressants uses for sleep and marijuana and is negative for Tylenol. The patient is admitted to medicine service for acute alteration mental status of unclear etiology with acute respiratory failure with hypoxia and acute kidney injury. Medical History: Back pain (Chronic 03/19/14) CAD (coronary atherosclerotic disease) (Chronic ~1998) Diabetic peripheral neuropathy (Chronic 11/10/15) Fibromyalgia (Chronic 03/12/17 ) Foraminal stenosis of lumbosacral region (Chronic) GERD (gastroesophageal reflux disease) (Chronic) Herniated disc (Acute) Hypertension (Chronic) Mixed hyperlipidemia (Chronic) Myocardial infarction (Acute ~ 1998) Recurrent major depressive disorder, in full remission ( Chronic) Type 2 diabetes mellitus with hyperglycemia (Chronic) Type 2 diabetes mellitus without complication (Chronic) Unspecified asthma (Chronic) Hearing Hearing Level Normal Auditory History Hearing appeared WFL. Vision Vision Status Impaired Comments Reports wearing glasses but did not have them in room [place] Language Language(s) Spoken in the Home Mongolian Educational Status Education Level N/A Occupational Status Occupation Status N/A Previous Therapy Previous Speech-Language Therapy No History of Therapy Patient reported no previous skilled speech therapy services. Oral Motor Examination Oral Motor Exam Completed No Results During ADHESION TESTER informal assessment , patient's oral structure and functioning appeared to have been WFL. ADHESION TESTER observed patient near the end of lunch time and noted no swallowing difficulties. Nursing also reported no oral structure/ functioning or swallowing impairments. Subjective Subjective Patient seen in room for speech-language evaluation. Patient reported 0 pain, alert and oriented x 3 (not oriented to reason for hospitalization). Patient agreeable for ST evaluation. - Informal Assessment Receptive Language Normal Yes Expressive Language Normal Yes Articulation Normal Yes Cognition Normal No: hallucinations Assessment Findings During informal conversation, ADHESION TESTER noted that patient experienced 2 hallucination events (e.g., pictures of family in the window and envisioned other objects that were not present in the cookie theft picture). - Receptive Language Yes/No Questions Skill Level WFL Following Directions - Verbal Skill Level WFL Auditory Comprehension Skill Level WFL Reading Comprehension Skill Level WFL Receptive Language Comments Receptive Language Comments Patient answered simple y/n questions, complex y/n questions, body part identification, picture identification, 1-3 step commands, and reading (word, phrase, sentences) with no difficulty or impairment identified. Receptive language skills appear to be intact and WFL at this time. - Expressive Language Automatic Speech Skill Level WFL Sentence Closure Skill Level WFL Object Naming Skill Level WFL Stating Functions Skill Level WFL Oral Expression Skill Level WFL Expressive Language Comments Expressive Language Comments Patient responded to / answered automatic speech tasks, phrase/sentence completion, confrontation naming, responsive naming, and stating object functions with no difficulty or impairment identified. The patient experienced an hallucination event when instructed to provide a description of the cookie theft picture. Patient reported seeing a man through the window in the picture, however, there was no man in the picture. Patient able to express wants/needs with no difficulty. - Findings Language Findings Patient's receptive and expressive speech-language skills were WFL. Patient oriented to name, location, and time. Patient not oriented to reason for hospitalization . Patient able to name 13 animals (divergent naming - WFL) in 1 minute to assess word retrieval and thought organization. Patient appropriately answered concrete and abstract problem solving questions and simple calculations with no difficulty. ADHESION TESTER noted a mild attention deficit. Patient stated that she was aware of her decreased attention skills and attributed it to her wanting to go home. Patient presented with a strained and hoarse vocal quality with intermittent episodes of aphonia. Patient attributes harsh vocal quality to allergies and vocal misuse (e.g., yelling). Patient's MPT was 11.96 seconds which is below average for her age and gender (avg. 15-25 seconds). ADHESION TESTER provided patient with 3 handouts on vocal hygiene, compensatory speaking strategies, and breath support exercises to implement in order to improve vocal/ respiratory quality. ADHESION TESTER reviewed each handout and placed the handouts in patient 's folder in room. Recommendations Recommendations ST follow up and/or reassess if patient experiences any changes in speech, language, cognition, or swallowing during time as [facility] . Once discharged, it is recommended that patient receive home health speech therapy to address voice/ respiratory deficits and further assess cognitive- linguistic skills.
[2020-03-20] MEDS: estradioL 1 MG TABLET PO (15:02)
[2020-03-20] MEDS: MEDROXYPROGESTERONE ACETATE 10 MG TABLET PO (15:02)
[2020-03-20] MEDS: ATORVASTATIN 20 MG TABLET 40 MG PO (17:17)
--- NOTE | 2020-03-20 22:45 | PC.NURSE ---
Assumed care of pt at 1500. Pt sitting up in bed during bedside hand-off. Sitter assigned as pt was reported to be impulsive and confused at times. Sitter with pt all evening. Pt does not use call light but able to make needs known by waving patients in or calling out for assist. Pt does state she is having visual and auditory hallucinations. Pleasant and cooperative with care.
[2020-03-21] MEDS: AMLODIPINE 2.5 MG TABLET 10 MG PO (00:16)
[2020-03-21 01:19] VITALS: BP 159/88; PULSE 101; RESP 18
[2020-03-21 05:00] VITALS: BP 169/75; PULSE 102; RESP 16; TEMP 36.6
[2020-03-21 07:30] VITALS: BP 137/76; PULSE 107; RESP 16; TEMP 36.8; O2SAT 98
[2020-03-21] MEDS: atenoloL 50 MG TABLET PO (08:46)
[2020-03-21] MEDS: SODIUM CHLORIDE 0.9% FLUSH 10 ML IV (08:46)
[2020-03-21] MEDS: INSULIN ASPART 100 UNIT/ML INSULN PEN SUBCUT (08:48)
[2020-03-21] MEDS: estradioL 1 MG TABLET PO (08:49)
[2020-03-21] MEDS: MEDROXYPROGESTERONE ACETATE 10 MG TABLET PO (08:49)
[2020-03-21] MEDS: lisinopriL 20 MG TABLET PO (08:51)
[2020-03-21] MEDS: ASPIRIN EC 81 MG TABLET PO (08:51)
[2020-03-21] MEDS: CLOPIDOGREL 75 MG TABLET PO (08:51)
[2020-03-21] MEDS: GABAPENTIN 600 MG TABLET PO (08:51)
[2020-03-21] MEDS: TAMSULOSIN 0.4 MG CAPSULE PO (08:51)
[2020-03-21] MEDS: DULOXETINE 30 MG CAPSULE PO (08:52)
[2020-03-21] MEDS: AMLODIPINE 5 MG TABLET 10 MG PO (08:52)
[2020-03-21 08:57] VITALS: O2SAT 98
--- NOTE | 2020-03-21 09:16 | CM.DPC ---
Addendum entered by Angelina Stewart R.N. 03/21/20 10:54: Faxed [facility] over face to face, orders, med list, discharge instructions. Awaiting DC summary, is still pending. Asked Guera, care tech, to fax it over when it is completed. Original Note: DCP Cont: Patient is to be discharged home today. Checked in with nurse, Shilpa, who stated that patient is alert today. Patient is to be discharged with [facility], all disciplines. Called Isabella at [facility], and gave her update. As soon as discharge summary is complete, will fax it over, as well as face to face and orders. is to come in at approximately 11:00 for transfer training with P.T. P: Patient is to be discharged home today. Will send over discharge summary and face to face, orders, when completed. Angelina Stewart RN/Forge Operator Helper
--- NOTE | 2020-03-21 09:55 | OT.IP.TRT ---
Current Diagnoses Delirium due to known physiological condition (03/16/20) Major depressive disorder, recurrent, in full remission (03/16/20) Encephalopathy, unspecified (03/16/20) Metabolic encephalopathy (03/16/20) Altered mental status, unspecified (03/16/20) Occupational Therapy Treatment Note M2 OT-IP Current Condition Start: 03/17/20 17:53 Freq: Status: Active Protocol: Document 03/18/20 12:59 CGR (Rec: 03/18/20 13:17 CGR [id number]) Occupational Therapy Current Condition Current Condition Evaluation Date 03/17/20 Treatment Diagnosis metabolic encephalopathy, hypoxia Diagnosis Onset Date 03/16/20 M3 OT- IP Subjective and Pain Start: 03/17/20 17:53 Freq: Status: Active Protocol: Document 03/21/20 12:03 [facility] (Rec: 03/21/20 12:22 [facility] [id number]) OT- Subjective Occupational Therapy Visit Type Type Treatment Note Visit Start Time 09:55 Visit Stop Time 11:30 Total Visit Minutes 54 Notes Saw pt in the morning for cognitive assessments and than for a second time for caregiver training with pt's . Occupational Therapy Visit Comments Patient Comments Pt wanting to do grooming needs at the sink. Patient/Caregiver Goals To go home. OT Pain Assessment Pain When Pain Assessed At Rest Pain Present Pain Present Denied Pain M4 OT- IP ADL's Start: 03/17/20 17:53 Freq: Status: Active Protocol: Document 03/21/20 12:03 [facility] (Rec: 03/21/20 12:22 [facility] [id number]) OT ADL-Grooming General Evaluation Grooming Ability Independent Comments OT Grooming Comments While standing with FWW at the sink. OT ADL-Oral Care General Eval Oral Care Ability Independent OT ADL-Dressing General Eval Lower Body Dressing Ability Independent OT ADL-Toileting Comments OT Toileting Comments Not performed in this session. M5 OT- IP IADL's Start: 03/17/20 17:53 Freq: Status: Active Protocol: Document 03/21/20 12:03 [facility] (Rec: 03/21/20 12:22 [facility] [id number]) OT-Instrumental Activities of Daily Living Medication Management Medication Management Caregiver Provides Supervision Medication Management Comments Per pt states has had prior CVA and was concerned about his ability to set-up her medications and suggested they both go over it and to have home health nurse go over it as well. Talked about various strategies pill organizer, color coding, and writing on the medication bottle caps to help identify the medications. Meal Preparation Meal Preparation Caregiver Provides Assist Senior Applications Architect Senior Applications Architect Caregiver Provides Assist Driving Driving Caregiver Provides Assist M6 OT- IP Functional Cognition Start: 03/17/20 17:53 Freq: Status: Active Protocol: Document 03/21/20 12:03 [facility] (Rec: 03/21/20 12:22 [facility] [id number]) Cognitive Factors Limiting Selfcare Function Cognitive Ability Level of Alertness Alert Patient Orientation Name,Age,Birthday,Month,Date, Year,Day of Week,Place, Situation Attention Span Ability Capable of Focused Attention Ability to Follow Commands Able to Follow One Step Commands with Increased Time, Able to Follow One Step Commands with Repetition Memory Description Working Impaired Safety Awareness Underestimates Need for Assistance Problem Solving Ability Needs Assist to Identify Solutions Executive Function Ability Unable to Filter Distractions, Unable to Make Plans,Unable to Organize Plans,Unable to Remember Details Cognitive Tests ACL Pt scored 4.4 which implies lives with someone who does a daily check on the environment and removes any hazards and solves new problems. Daily food , medications, finances, and getting to appointment may need to be provided. Cognitive Comments Cognitive Assessment Comments Pt doing better with working memory today but still impaired. Pt scored 162 seconds and needing one cue to remember the directions which implies mild/moderate impairment for visual attention, speed of processing , mental flexibility, and executive thinking, therefore suggested at this time no driving. M7 OT- IP Mobility and Balance Start: 03/17/20 17:53 Freq: Status: Active Protocol: Document 03/21/20 12:03 [facility] (Rec: 03/21/20 12:22 [facility] [id number]) OT- Bed Mobility Assessment Supine to Sit Supine to Sit Assist Independent Sit to Supine Sit to Supine Assist Independent OT-Transfer Assessment Sit to and From Stand Sit to and from Stand Standby Assistance Transfers Transfer Ability Standby Assistance Technique Transfer Destination Bed Devices Transfer Assistive Devices Gait Belt,Front Wheeled Walker Comments Mobility Comments SBA for mobility needs in the room with FWW. OT- Balance Assessment Sitting Balance and Reactions Static Sitting Balance Ability Normal Dynamic Sitting Balance Ability Normal Standing Balance and Reactions Static Standing Balance Ability Good M8 OT- IP Objective Assessments Start: 03/17/20 17:53 Freq: Status: Active Protocol: Document 03/17/20 17:53 [facility] (Rec: 03/17/20 18:37 [facility] [id number]) OT Gross Range of Motion Upper Extremity Range of Motion Assessment Within Functional Limits OT Strength Upper Extremity Strength Assessment Within Functional Limits M9 OT- IP Assessment and Plan Start: 03/17/20 17:53 Freq: Status: Active Protocol: Document 03/21/20 12:03 [facility] (Rec: 03/21/20 12:22 [facility] [id number]) OT Summary Assessment and Plan Potential Rehabilitation Potential Good Analytic Complexity at Evaluation Low Summary Progress Towards Goals Progressing Toward Goals,Slow Progress due to Cognition Assessment Summary Pt's in for caregiver training and had concerns for helping pt with medication management need and told them the nurse will be going over it and emphasized to make sure the home health nurse goes over it and double checks them at home. Pt going home with her . Frequency of Treatment Frequency Of Treatment Once a Day Treatment Plan OT Treatment Plan ADL Training,Functional Cognition Training,Functional Mobility,Patient/Family Education,Discharge Planning Discharge Recommendations OT Discharge Recommendations Home with Assistance Transportation Needs at Discharge Private Vehicle
--- NOTE | 2020-03-21 10:55 | PT.IPTN ---
Current Diagnoses Delirium due to known physiological condition (03/16/20) Major depressive disorder, recurrent, in full remission (03/16/20) Encephalopathy, unspecified (03/16/20) Metabolic encephalopathy (03/16/20) Altered mental status, unspecified (03/16/20) Physical Therapy Treatment Note M2 PT-IP Current Condition Start: 03/17/20 15:22 Freq: NEEDED Status: Active Protocol: Document 03/18/20 13:16 LR (Rec: 03/18/20 13:29 [facility] [id number]) Physical Therapy Current Condition Current Condition Evaluation Date 03/18/20 Treatment Diagnosis encephalopathy, weakness Weight Bearing Status Weight Bearing Status Full Weight Bearing M3 PT-IP Subjective Start: 03/17/20 15:22 Freq: NEEDED Status: Active Protocol: Document 03/21/20 10:55 AB (Rec: 03/21/20 11:24 AB [id number]) Subjective Physical Therapy Visit Type Type Treatment Note Visit Start Time 10:55 Visit Stop Time 11:12 Total Visit Minutes 17 Number of RENT AND MISCELLANEOUS REMITTANCE CLERK Visits 0 Physical Therapy Visit Comments Patient Comments pt's spouse present for caregiver training M4 PT-IP Mobility and Gait Start: 03/17/20 15:22 Freq: NEEDED Status: Active Protocol: Document 03/21/20 10:55 AB (Rec: 03/21/20 11:24 AB [id number]) PT-Transfer Assessment Sit to and From Stand Sit to and from Stand Standby Assistance,Contact Guard Assistance,1 Person Assistance,Use of Upper Extremities Equipment Transfer Assistive Device Gait Belt,Front Wheeled Walker Orthotic/Prosthetic Devices or Brace: No Transfers Transfer Destination Bed,Chair Transfer Technique Stand Step Pivot Transfer Ability Level of Assist Contact Guard Assistance,1 Person Assistance,Use of Upper Extremities Comments Mobility Comments caregiver training conducted. pt put safety belt on. spouse stated that he knows how to do it since she has assisted pt before. educated on how to assist pt using safety belt. spouse was able to assist pt with tranfers, ambulation and stair climbing. Gait Assessment Gait Gait Assistance Required: Contact Guard Assist Distance (Feet) 50 Able to Maintain Weight Bearing Status Yes During Gait Assistive Devices Assistive Device Gait Belt,Front Wheeled Walker Orthotic/Prosthetic Devices or Brace: No Gait Deviations General Gait Pattern Antalgic,Decreased Stride Length,Decreased Feet Clearance,Narrow Based Gait Factors Limiting Gait Function Factors Limiting Gait Function Decreased Strength,Poor Balance,Poor Safety Awareness Comments Gait Comments ambulated from room to stairs and back using FWW CGA with spouse assisting Stair Climbing Assessment Evaluation Level of Assist On Stairs Minimal Assistance,1 Person Assistance Devices Stair Climbing Assistive Devices Left Railing Technique/Endurance Stair Climbing Direction Ascend and Descend Stair Climbing Technique Step to Step Number of Steps Climbed 3 Stair Climbing Set # Repetitions (reps) 2 Comments Stair Climbing Comments educated spouse on how to assist pt with stairs. initially requiring cues but completed without afterwards. completed 3 step with L rail ascending and VENDING MACHINE OPERATOR and also completed up/down platform step with 1 rail and VENDING MACHINE OPERATOR min A M5 PT-IP Objective Assessments Start: 03/17/20 15:22 Freq: NEEDED Status: Active Protocol: Document 03/18/20 13:16 [facility] (Rec: 03/18/20 13:29 [facility] [id number]) Orientation Orientation/Cognition Level of Alertness Confusional State Language Function Ability No Deficits Noted Safety Awareness Decreased Safety Awareness Comments Pt had difficulty following conversations and would often chose off topic answers when answering questions. Strength Lower Extremity Strength Assessment Bilaterally Impaired M6 PT-IP Treatment Start: 03/17/20 15:22 Freq: NEEDED Status: Active Protocol: Document 03/21/20 10:55 AB (Rec: 03/21/20 11:25 AB [id number]) Physical Therapy Treatment Education Education Provided Safety M7 PT-IP Assessment and Plan Start: 03/17/20 15:22 Freq: NEEDED Status: Active Protocol: Document 03/21/20 10:55 AB (Rec: 03/21/20 11:24 AB [id number]) PT Summary Assessment and Plan Potential Rehabilitation Potential Good Summary Impairments Pain,ROM,Strength,Balance, Coordination,Sensation,Tone, Cognition,Bed Mobility, Transfers,Gait,Activity Tolerance Progress Towards Goals Slow Progress - Other Assessment Summary caregiver training conducted and spouse was able to assist pt with mobility. pt and spouse has no further concerns and also is aware of homehealth PT recommendation. pt plans to go home today. Goals Bed Mobility Goal Independent Transfer Goal Independent,Front Wheeled Walker Gait Goal Standby Assistance,Front Wheel Walker Gait Distance 150ft Other Goals up/down 10 steps 1 rail SBA Days to Meet Goals 6 Frequency of Treatment Frequency Of Treatment Twice a Day Treatment Plan Physical Therapy Treatment Plan Bed Mobility Training,Transfer Training,Gait Training, Therapeutic Exercise,Balance Retraining,Neuromuscular Re-ed Other Recommendations and Next Treatment ambulation, stair climbing Focus Recommendations To Nursing Amount of Assist Needed 1 Person Assist Discharge Recommendations PT Discharge Recommendations Home with Assistance,Home Health Transportation Needs at Discharge Private Vehicle,Wheelchair/ Cabulance
[2020-03-21 11:22] VITALS: BP 128/83; PULSE 93; RESP 16; TEMP 37; O2SAT 94
--- NOTE | 2020-03-21 12:34 | PC.NURSE ---
Discharge home: Was seen by PT/OT with for caregiver training and cleared to d/c home. PICC line dc'd intact and with good hemostasis by hemodialysis charge nurse Kessa. radiology administrator reviewed all d/c paperwork and instructions w/ patient and spouse, scripts provided. All personal belongings sent at discharge. Wheeled out to private vehicle by nursing staff.
--- NOTE | 2020-03-24 17:56 | P.DS_ITS ---
History of Present Illness History of Present Illness Date Patient Seen: 03/21/20 Chief complaint: Decreased LOC Narrative: Ms. Lorenzo Farias is a 64-year-old female with a history significant for type 2 diabetes with peripheral neuropathy, CAD, AR, asthma, hypertension, hyperlipidemia, chronic pain with fibromyalgia and foraminal stenosis to the lumbar sacral area was brought into the ER by her who reports 2 days of worsening mental status. There has been no change in the patient's medications or complaints of fevers or chills or sick contacts. Patient is not had any falls trauma or head injuries. Upon arrival EMS at the patient's home is reported the patient's initial pulse ox was in the 70s to low 80s. The patient is unable to participate in subjective analysis. The patient will make eye contact but it is nonverbal and will not follow commands and does respond to noxious stimulus. There has been no reports per the of headaches or dizziness, chest pain, shortness of breath or cough. She has reported no abdominal pain has not been nauseated or vomited. To the best of his knowledge she has had no change in bowel or bladder habits. Upon arrival to the ER the patient is afebrile with temperature 98.4?, heart rate of 72, hypertensive 192/81, respiratory rate of 22 saturating 96% on [address] of oxygen[address] A [address] scan is obtained of the head which finds no acute intracranial pathology, identify small lipoma in the basal cistern. A CT with contrast finds no acute abnormal findings, identifies vascular atherosclerosis. Chest x-ray is unremarkable. On laboratory analysis the patient has an elevated white count 17.5, hemoglobin of 13.0, hematocrit of 40.2 and platelets of 310. On coagulation has a PT of 11.1, INR 1.0 PTT of 26. Her electrolytes within normal range with a sodium of 143, potassium of 4.8. Chloride is 104 with a CO of 22. BUN is 26 with a creatinine of 1.21 blood sugars 218. A D-dimer is assessed at 226. ABG finds pH 7.37, pCO2 of 39, PO2 of 80, bicarb 23 with a base excess of - 3 on 50% FiO2. At that time the PF ratio was of 160. Lactic acid is 2.9 procalcitonin is 0.05, CRP is less than 0.05. Urinalysis finds trace ketones, trace glucose and is negative for nitrites and leukocyte esterase or WBCs and has 2+ protein. On tox screen she is positive for opiates which she is prescribed positive for tricyclic antidepressants uses for sleep and marijuana and is negative for Tylenol. The patient is admitted to medicine service for acute alteration mental status of unclear etiology with acute respiratory failure with hypoxia and acute kidney injury. Discharge Providers Provider Date of admission: 03/16/20 06:11 Discharge Date: 03/21/20 Primary care physician: Jose Brito MD Consults: 03/16/20 06:45 Consult to Discharge Planning Routine Comment: 03/16/20 08:23 Consult to Respiratory Therapy Evaluate & Treat Comment: Hypoxemia Physician Instructions: Evaluate and treat 03/16/20 13:03 Consult to Dietitian, Adult Routine Comment: Reason For Exam: needs diabetic diet education 03/17/20 10:04 Consult to Occupational Therapy Evaluate & Treat Comment: SLUMS Physician Instructions: Evaluate and treat 03/17/20 12:51 Consult to Physical Therapy Evaluate & Treat Comment: Physician Instructions: Evaluate and Treat 03/18/20 08:44 Consult to Physician Routine Comment: Consulting Provider: Murtaza Palumbo Reason for consultation: Psychosis Has provider been notified: Yes 03/19/20 09:35 Consult to Speech Therapy Evaluate & Treat Comment: Physician Instructions: Evaluate and treat 03/19/20 15:00 Consult to Home Health Routine Comment: Reason For Exam: Home Health RN/PT/OT/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 Acute metabolic encephalopathy 2. Subacute right frontal CVA 3. Type 2 diabetes 4. Hypertension 5. Hyperlipidemia 6. Fibromyalgia 7. Coronary disease 8. Asthma 9. Chronic back Acute respiratory failure present on admission resolved Metabolic encephalopathy, present Acute kidney disease, Visual hallucinations, improved Rectal bleeding, resume Hospital Course: Patient was admitted to the hospital for changes in her mental status. She presented with acute metabolic encephalopathy. Her head CT was negative. Patient had a head MRI which confirmed a frontal lobe subacute CVA. She was seen by psychiatry Dr. Palumbo. There was concern for ongoing delirium. She was treated for delirium during her hospital stay. Patient made slow but steady recovery. Her major issue was word finding. She was seen by physical therapy and occupational therapy. She made slow but steady progress and was ultimately deemed appropriate for discharge home. Patient had extensive workup to include an echocardiogram which showed an ejection fraction of 25-30%, car otid Dopplers which showed no significant high-grade stenosis, and a head MRI which confirmed a subacute right frontal lobe CVA. Patient also had a CT the abdomen and pelvis which was unremarkable. She had an episode of rectal bleeding which resolved. The patient had acute respiratory failure on admission with hypoxia which quickly resolved. She slowly but steadily improved and was deemed appropriate for discharge home. Exam Vital Signs (past 8 hours): Oxygen Delivery Method Room Air Oxygen Flow Rate 0 Narrative Exam Narrative: Pleasant female in no acute distress Lungs: Clear to auscultation Cardiac exam: Regular rate and rhythm normal S1-S2 Abdomen: Soft nontender nondistended Extremities: No edema Objective Labs Result Diagrams: 03/19/20 05:10 03/19/20 05:10 Discharge Plan Discharge Plan Patient Disposition: Home Health Service Discharge orders & Medications Prescriptions: New amlodipine [Norvasc] 5 mg Tablet 10 mg PO DAILY Qty: 30 RF: 0 lisinopril 20 mg Tablet 20 mg PO DAILY 30 Days RF: 0 haloperidol 1 mg Tablet 0.5 mg PO BID PRN (Reason: Agitation) 15 Days RF: 0 clopidogrel 75 mg Tablet 75 mg PO DAILY 30 Days RF: 0 atenolol 50 mg Tablet 50 mg PO DAILY 30 Days RF: 0 Continued Homeopathic Substance (ALLERGY) 1 tab Sublingual DIRECTED Qty: 0 RF: 0 tramadol 50 mg tablet 50 mg PO TID PRN (Reason: pain) Qty: 60 RF: 1 gabapentin [Neurontin] 600 mg tablet 600 mg PO TID Qty: 120 RF: 3 duloxetine 30 mg capsule,delayed release(DR/EC) 30 mg PO BID Qty: 180 RF: 3 cyclobenzaprine 10 mg tablet 10 mg PO TID PRN (Reason: Muscle Spasm) Qty: 60 RF: 0 zolpidem 10 mg tablet 10 mg PO BEDTIME Qty: 30 RF: 0 tamsulosin 0.4 mg capsule 0.4 mg PO DAILY Qty: 90 RF: 3 hydrocodone-acetaminophen 7.5-325 mg tablet 1 - 2 tab PO Q4HP PRN (Reason: pain in back) Qty: 90 RF: 0 aspirin 81 mg tablet,delayed release (DR/EC) 81 mg PO DAILY RF: 0 glipizide 5 mg tablet 5 mg PO BID Qty: 60 RF: 5 metformin 1,000 mg tablet 1,000 mg PO BID Qty: 180 RF: 3 albuterol sulfate [Proventil HFA] 90 mcg/actuation HFA aerosol inhaler 1 puff IH PRN PRN (Reason: Shortness Of Breath) RF: 0 atorvastatin 40 mg tablet 40 mg PO QPM RF: 0 estradiol 1 mg tablet 1 mg PO DAILY RF: 0 diclofenac sodium 50 mg tablet,delayed release (DR/EC) 50 mg PO BID PRN (Reason: pain) RF: 0 medroxyprogesterone 10 mg tablet 10 mg PO DAILY RF: 0 melatonin 5 mg Tablet 5 mg PO BEDTIME PRN (Reason: Insomnia) RF: 0 fluticasone propionate 50 mcg/actuation spray,suspension 2 spray Intranasal PRN PRN (Reason: Allergy Symptoms) RF: 0 Discontinued atenolol 25 mg tablet 25 mg PO DAILY Qty: 90 RF: 1 lisinopril 10 mg tablet 10 mg PO DAILY RF: 0 No Action (DME) Glucose: Test Strips 0 .Route .MEDSUPPLY Qty: 100 RF: 3 (DME) Disabled Parking Qty: 1 RF: 0 Follow up/Referrals: Jose Brito MD [Primary Care Provider] - (Please call to schedule your appointment.) Diet/Activity/Treatments Diet: Low-fat and Low-sodium Activity: as tolerated Visit Report/Discharge Packet Instructions: Aging Gracefully: Reducing the Risks of Polypharmacy, DI for Stroke-Ischemic, How to Prevent Falls Visit Report Forms: Patient Portal/API, Stroke Signs & Symptoms Discharge Data Primary Care Provider: Jose Brito Discharges patient from system. Discharge Date/Time: 03/21/20 12:38
== END 2020-03-21 12:38 | disposition home health service (06) | DRG 70 ==
LOC: ED 05:44 → AC 07:34 → ICU 09:25 → AC 03-18 14:33 → ICU 03-18 14:39
PROVIDERS: Internal Medicine; Admitting Provider Nurse Practitioner Adult Health; Emergency Provider Emergency Medicine; Family Provider Registered Nurse; PCP Internal Medicine; Visit Provider Nurse Practitioner Adult Health
DX: G93.40 Encephalopathy, unspecified (principal); J96.01 Acute respiratory failure with hypoxia; R40.2212 Coma scale, best verbal response, none, at arrival to emergency department; I63.9 Cerebral infarction, unspecified; N17.9 Acute kidney failure, unspecified; E87.2 Acidosis; K62.5 Hemorrhage of anus and rectum; E11.42 Type 2 diabetes mellitus with diabetic polyneuropathy; E86.0 Dehydration; R40.2352 Coma scale, best motor response, localizes pain, at arrival to emergency department; R40.2142 Coma scale, eyes open, spontaneous, at arrival to emergency department; T50.911A Poisoning by multiple unspecified drugs, medicaments and biological substances, accidental (unintentional), initial encounter; I25.10 Atherosclerotic heart disease of native coronary artery without angina pectoris; J45.909 Unspecified asthma, uncomplicated; I10 Essential (primary) hypertension; E78.5 Hyperlipidemia, unspecified; G89.29 Other chronic pain; M79.7 Fibromyalgia; D72.829 Elevated white blood cell count, unspecified; Z87.891 Personal history of nicotine dependence; Z79.84 Long term (current) use of oral hypoglycemic drugs; Z11.59 Encounter for screening for other viral diseases
CPT/HCPCS: 36415; 36592; 36600; 70450; 70551; 71045; 71250; 74177; 80048; 80053; 80305; 80320; 80329; 81001; 82140; 82550; 82728; 82805; 82962; 83605; 83615; 83735; 83930; 84100; 84145; 84146; 84443; 84484; 85014; 85018; 85025; 85379; 85610; 85730; 86140; 87040; 87635; 87797; 90792; 92523; 93005; 93306; 93880; 94760; 94762; 96361; 96365; 97112; 97116; 97129; 97130; 97162; 97165; 97530; 97535; 99285; G0480; J1642; J1644; J1956; J2060; J2405; J3475; Q9967

== ENCOUNTER → 2020-04-30 09:29 | Outpatient (CLI) | payer BC, SELFPAY ==
[2020-03-16 12:40] VITALS: BMI 24.3
[2020-04-30 10:43] LABS: Alanine Aminotransferase 15 IU/L (<35); Albumin 4.4 g/dL (3.5-5.0); Albumin Globulin Ratio 1.5 (1.0-2.8); Alkaline Phosphatase 44 U/L (38-126); Aspartate Aminotransferase 20 IU/L (14-36); BUN Creatinine Ratio 20.7 (6-22); Bilirubin Total 0.3 mg/dL (0.2-1.3); Blood Urea Nitrogen 19 mg/dL (7-17); Calcium 9.4 mg/dL (8.4-10.2); Carbon Dioxide 19 mmol/L (22-32); Chloride 108 mmol/L (98-107); Estimated Glomerular Filt Rate > 60.0 mL/min (>60); Globulin 2.9 g/dL (1.7-4.1); Glucose 166 mg/dL (80-110); HEMOLYSIS < 15 (0-50); Potassium 5.2 mmol/L (3.4-5.1); Sodium 137 mmol/L (137-145); Total Protein 7.3 g/dL (6.3-8.2)
[2020-04-30 10:46] LABS: Hemoglobin A1C% w Est Avg Glu 7.1 % (4.0-6.0)
== END ==
PROVIDERS: PCP Internal Medicine; Referring Provider Internal Medicine; Visit Provider Internal Medicine
DX: E11.65 Type 2 diabetes mellitus with hyperglycemia (principal); I25.10 Atherosclerotic heart disease of native coronary artery without angina pectoris; I73.9 Peripheral vascular disease, unspecified
CPT/HCPCS: 36415; 80053; 83036

== ENCOUNTER → 2020-08-03 10:43 | Outpatient (CLI) | payer BC, SELFPAY ==
[2020-03-16 12:40] VITALS: BMI 24.3
[2020-08-03 11:47] LABS: Hemoglobin A1C% w Est Avg Glu 7.1 % (4.0-6.0)
[2020-08-03 11:50] LABS: BUN Creatinine Ratio 17.8 (6-22); Blood Urea Nitrogen 16 mg/dL (7-17); Calcium 9.4 mg/dL (8.4-10.2); Carbon Dioxide 24 mmol/L (22-32); Chloride 102 mmol/L (98-107); Estimated Glomerular Filt Rate > 60.0 mL/min (>60); Glucose 137 mg/dL (80-110); HEMOLYSIS < 15 (0-50); Potassium 4.9 mmol/L (3.4-5.1); Sodium 135 mmol/L (137-145)
== END ==
PROVIDERS: PCP Internal Medicine; Referring Provider Internal Medicine; Visit Provider Internal Medicine
DX: E11.65 Type 2 diabetes mellitus with hyperglycemia (principal); I42.9 Cardiomyopathy, unspecified
CPT/HCPCS: 36415; 80048; 83036

== ENCOUNTER → 2020-11-17 11:19 | Outpatient (CLI) | payer BC, SELFPAY ==
[2020-03-16 12:40] VITALS: BMI 24.3
[2020-11-17 12:00] LABS: Add Manual Diff / Slide Review NO; Basophils Absolute Auto 100 /uL (0-100); Basophils Percent Auto 0.8 % (0-2); Eosinophils Absolute Auto 300 /uL (0-450); Eosinophils Percent Auto 3.2 % (2-4); Hematocrit 34.5 % (36-46); Hemoglobin 11.1 g/dL (12.0-16.0); Lymphocytes Absolute Auto 3100 /uL (1100-4500); Lymphocytes Percent Auto 33.1 % (25-40); Mean Corpuscular HGB Conc 32.2 % (30-36); Mean Corpuscular Hemoglobin 28.9 PG (26-34); Mean Corpuscular Volume 89.7 fL (80-100); Monocytes Absolute Auto 700 /uL (0-900); Monocytes Percent Auto 7.3 % (3-14); Neutrophils Absolute Auto 5300 /uL (1500-7000); Neutrophils Percent Auto 55.6 % (50-75); Platelet Count 259 X10^3/uL (150-400); Red Blood Cell Count 3.84 X10^6/uL (4.0-5.2); Red Cell Distribution Width 12.8 % (11.6-14.8); White Blood Cell Count 9.5 X10^3/uL (4.5-11.0)
[2020-11-17 12:24] LABS: Hemoglobin A1C% w Est Avg Glu 7.1 % (4.0-6.0)
[2020-11-17 12:33] LABS: Alanine Aminotransferase 14 IU/L (<35); Albumin 4.4 g/dL (3.5-5.0); Albumin Globulin Ratio 1.8 (1.0-2.8); Alkaline Phosphatase 57 U/L (38-126); Aspartate Aminotransferase 17 IU/L (14-36); BUN Creatinine Ratio 19.5 (6-22); Bilirubin Total 0.1 mg/dL (0.2-1.3); Blood Urea Nitrogen 16 mg/dL (7-17); Calcium 9.2 mg/dL (8.4-10.2); Carbon Dioxide 23 mmol/L (22-32); Chloride 105 mmol/L (98-107); Estimated Glomerular Filt Rate > 60.0 mL/min (>60); Globulin 2.5 g/dL (1.7-4.1); Glucose 108 mg/dL (80-110); HEMOLYSIS < 15 (0-50); Sodium 136 mmol/L (137-145); Total Protein 6.9 g/dL (6.3-8.2)
[2020-11-17 12:35] LABS: Potassium 5.4 mmol/L (3.4-5.1)
== END ==
PROVIDERS: PCP Internal Medicine; Referring Provider Internal Medicine; Visit Provider Internal Medicine
DX: E11.65 Type 2 diabetes mellitus with hyperglycemia (principal); E78.2 Mixed hyperlipidemia; I42.9 Cardiomyopathy, unspecified
CPT/HCPCS: 36415; 80053; 83036; 85025

== ENCOUNTER → 2021-02-18 11:46 | Outpatient (CLI) | payer BC, SELFPAY ==
[2020-03-16 12:40] VITALS: BMI 24.3
[2021-02-18 13:21] LABS: Hemoglobin A1C% w Est Avg Glu 6.6 % (4.0-6.0)
[2021-02-18 13:29] LABS: Alanine Aminotransferase 30 IU/L (<35); Albumin 4.4 g/dL (3.5-5.0); Albumin Globulin Ratio 1.8 (1.0-2.8); Alkaline Phosphatase 63 U/L (38-126); Aspartate Aminotransferase 28 IU/L (14-36); BUN Creatinine Ratio 15.3 (6-22); Bilirubin Total 0.3 mg/dL (0.2-1.3); Blood Urea Nitrogen 15 mg/dL (7-17); Calcium 9.2 mg/dL (8.4-10.2); Carbon Dioxide 26 mmol/L (22-32); Chloride 103 mmol/L (98-107); Estimated Glomerular Filt Rate 57.3 mL/min (>60); Globulin 2.5 g/dL (1.7-4.1); Glucose 164 mg/dL (80-110); HEMOLYSIS < 15 (0-50); Potassium 4.9 mmol/L (3.4-5.1); Sodium 138 mmol/L (137-145); Total Protein 6.9 g/dL (6.3-8.2)
== END ==
PROVIDERS: PCP Internal Medicine; Referring Provider Internal Medicine; Visit Provider Internal Medicine
DX: E11.65 Type 2 diabetes mellitus with hyperglycemia (principal); E78.2 Mixed hyperlipidemia
CPT/HCPCS: 36415; 80053; 83036

== ENCOUNTER → 2021-09-05 13:19 | Outpatient (CLI) | payer BC, SELFPAY ==
[2020-03-16 12:40] VITALS: BMI 24.3
[2021-09-05 14:40] LABS: Hemoglobin A1C% w Est Avg Glu 6.6 % (4.0-6.0)
[2021-09-05 14:45] LABS: Alanine Aminotransferase 20 IU/L (<35); Albumin 4.4 g/dL (3.5-5.0); Albumin Globulin Ratio 2.2 (1.0-2.8); Alkaline Phosphatase 64 U/L (38-126); Aspartate Aminotransferase 22 IU/L (14-36); BUN Creatinine Ratio 22.3 (6-22); Bilirubin Total 0.2 mg/dL (0.2-1.3); Blood Urea Nitrogen 29 mg/dL (7-17); Calcium 9.7 mg/dL (8.4-10.2); Carbon Dioxide 26 mmol/L (22-32); Chloride 103 mmol/L (98-107); Estimated Glomerular Filt Rate 41.2 mL/min (>60); Glucose 149 mg/dL (80-110); HEMOLYSIS < 15 (0-50); Sodium 138 mmol/L (137-145); Total Protein 6.4 g/dL (6.3-8.2)
[2021-09-05 14:58] LABS: Potassium 6.2 mmol/L (3.4-5.1)
== END ==
PROVIDERS: PCP Internal Medicine; Referring Provider Internal Medicine; Visit Provider Internal Medicine
DX: E11.9 Type 2 diabetes mellitus without complications (principal); I25.10 Atherosclerotic heart disease of native coronary artery without angina pectoris
CPT/HCPCS: 36415; 80053; 83036

== ENCOUNTER → 2021-09-15 10:26 | Outpatient (CLI) | payer BC, SELFPAY ==
[2020-03-16 12:40] VITALS: BMI 24.3
[2021-09-15 10:53] LABS: BUN Creatinine Ratio 31.5 (6-22); Blood Urea Nitrogen 29 mg/dL (7-17); Calcium 9.1 mg/dL (8.4-10.2); Carbon Dioxide 25 mmol/L (22-32); Chloride 103 mmol/L (98-107); Estimated Glomerular Filt Rate > 60.0 mL/min (>60); Glucose 127 mg/dL (80-110); HEMOLYSIS 86 (0-50); Sodium 139 mmol/L (137-145)
== END ==
PROVIDERS: PCP Internal Medicine; Referring Provider Internal Medicine; Visit Provider Internal Medicine
DX: E87.5 Hyperkalemia (principal); N18.31 Chronic kidney disease, stage 3a
CPT/HCPCS: 36415; 80048

== ENCOUNTER → 2022-02-23 10:12 | Outpatient (CLI) | payer BC, SELFPAY ==
[2020-03-16 12:40] VITALS: BMI 24.3
[2022-02-23 10:56] LABS: Alanine Aminotransferase 16 IU/L (<35); Albumin 4.5 g/dL (3.5-5.0); Alkaline Phosphatase 73 U/L (38-126); Aspartate Aminotransferase 20 IU/L (14-36); BUN Creatinine Ratio 13.6 (6-22); Bilirubin Total 0.3 mg/dL (0.2-1.3); Blood Urea Nitrogen 18 mg/dL (7-17); Calcium 9.2 mg/dL (8.4-10.2); Carbon Dioxide 25 mmol/L (22-32); Chloride 106 mmol/L (98-107); Cholesterol 175 mg/dL (140-199); Estimated Glomerular Filt Rate 40.5 mL/min (>60); Globulin 2.3 g/dL (1.7-4.1); Glucose 156 mg/dL (80-110); HDL Cholesterol 47 mg/dL (40-60); HEMOLYSIS < 15 (0-50); LDL Cholesterol Calculated 60 mg/dL (<100); Potassium 4.8 mmol/L (3.4-5.1); Sodium 141 mmol/L (137-145); Total Protein 6.8 g/dL (6.3-8.2); Triglycerides 338 mg/dL (35-150)
== END ==
PROVIDERS: PCP Internal Medicine; Referring Provider Internal Medicine; Visit Provider Internal Medicine
DX: E11.9 Type 2 diabetes mellitus without complications (principal); I42.9 Cardiomyopathy, unspecified; E78.2 Mixed hyperlipidemia; I25.10 Atherosclerotic heart disease of native coronary artery without angina pectoris
CPT/HCPCS: 36415; 80053; 80061; 83036

== ENCOUNTER → 2022-10-20 10:14 | Outpatient (CLI) | payer MEDICARE, SELFPAY ==
[2022-10-19 11:23] VITALS: BMI 24.3
[2022-10-20 12:05] LABS: Hemoglobin A1C% w Est Avg Glu 6.6 % (4.0-6.0)
[2022-10-20 14:22] LABS: Alanine Aminotransferase 31 IU/L (<35); Albumin 4.5 g/dL (3.5-5.0); Albumin Globulin Ratio 1.6 (1.0-2.8); Alkaline Phosphatase 80 U/L (38-126); Aspartate Aminotransferase 29 IU/L (14-36); Bilirubin Total 0.4 mg/dL (0.2-1.3); Blood Urea Nitrogen 16 mg/dL (7-17); Calcium 9.2 mg/dL (8.4-10.2); Carbon Dioxide 27 mmol/L (22-32); Chloride 102 mmol/L (98-107); Estimated Glomerular Filt Rate > 60 mL/min (>60); Globulin 2.8 g/dL (1.7-4.1); Glucose 134 mg/dL (80-110); HEMOLYSIS < 15 (0-50); Potassium 4.5 mmol/L (3.4-5.1); Sodium 140 mmol/L (137-145); Total Protein 7.3 g/dL (6.3-8.2)
[2022-10-20 16:46] LABS: Creatinine Urine Random 30.1 mg/dL
[2022-10-20 16:52] LABS: Microalbumin Urine Random < 0.6 mg/dL (0-1.6)
== END ==
PROVIDERS: PCP Internal Medicine; Referring Provider Internal Medicine; Visit Provider Internal Medicine
DX: E11.9 Type 2 diabetes mellitus without complications (principal); E78.2 Mixed hyperlipidemia; I25.10 Atherosclerotic heart disease of native coronary artery without angina pectoris; N18.31 Chronic kidney disease, stage 3a
CPT/HCPCS: 36415; 80053; 82043; 82570; 83036

== ENCOUNTER → 2022-12-07 08:44 | Outpatient (CLI) | payer MEDICARE, SELFPAY ==
[2022-10-23 11:50] VITALS: BMI 24.3
--- NOTE | 2022-12-07 08:47 | DI.RAD.S_ITS ---
PROCEDURE: FL SHOULDER INJECTION MR/CT RT INDICATIONS: ROTATOR CUFF TEAR COMPARISON: [facility] [place], CR, XR SHOULDER 2+ VIEWS RIGHT, 11/23/2022, 10:14. TECHNIQUE: The indications, alternatives, benefits, risks, and complications of the procedure were explained to the patient. Written informed consent was obtained and placed in the chart. The shoulder was examined fluoroscopically and a site for needle placement chosen for entry into the glenohumeral joint from an anterior approach. The skin was prepped and draped in a sterile fashion, and 1% lidocaine infiltrated from skin down to joint capsule. A spinal needle was inserted into the glenohumeral joint, and a small amount of iodinated contrast media injected to confirm intra-articular placement of the needle tip. This was followed by approximately 12 mL dilute solution of a gadolinium containing MR contrast agent. The needle was removed and a dressing was applied. The patient was given postprocedural instructions and sent to the MR suite for MR imaging. FINDINGS: A single fluoroscopic spot image demonstrates intra-articular location of injected iodinated contrast. IMPRESSION: Successful fluoroscopically guided administration of dilute Gadolinium solution into the shoulder joint for MR arthrogram. Dictated by: Arnulfo Watts M.D. on 12/07/2022 at 10:20 Approved by: Arnulfo Watts M.D. on 12/07/2022 at 10:21
--- NOTE | 2022-12-07 08:48 | DI.MRI.S_ITS ---
PROCEDURE: MR SHOULDER RT W CON INDICATIONS: ROTATOR CUFF TEAR TECHNIQUE: After the administration of 12 mL of dilute intra-articular Gadolinium contrast, oblique coronal T1 and T2 spin echo with fat saturation, oblique sagittal T1 spin echo with and without fat saturation, oblique sagittal T2 fast spin echo with fat saturation, axial T1 spin echo with fat saturation through the shoulder. COMPARISON: [facility] [place], CR, XR SHOULDER 2+ VIEWS RIGHT, 09/21/2021, 11:01. [facility] [place], CR, XR SHOULDER 2+ VIEWS RIGHT, 11/23/2022, 10:14. FINDINGS: Image quality: Excellent. Rotator cuff: There is partial thickness tear along the articular surface of the supraspinatus tendon. There is moderate subscapularis tendinosis without high-grade tear. The infraspinatus tendon appears intact throughout. No rotator cuff muscle atrophy on sagittal images. Bones and bursae: No bone marrow contusions or fractures. Mild acromioclavicular and glenohumeral joint degeneration. The acromion demonstrates conventional anatomy, without an os acromiale. Capsule and soft tissues: There is SLAP tear in the superior labrum at 11:00-12:00 position involving the biceps anchor and tendon attachment. Position. The glenohumeral ligaments appear intact. The long head of the biceps tendon demonstrates normal location and morphology. The rotator interval appears normal, without fibrosis. The coracohumeral ligament is of normal thickness. No intra-articular bodies. IMPRESSION: 1. Partial-thickness tear of the supraspinatus tendon. 2. Moderate subscapularis tendinosis and mild supraspinatus tendinosis. 3. Slap tear of the superior labrum involving the biceps anchor and tendon attachment. 4. Mild acromioclavicular and glenohumeral joint degeneration. Dictated by: Viviana Cordova M.D. on 12/07/2022 at 11:49 Approved by: Viviana Cordova M.D. on 12/07/2022 at 12:02
== END ==
PROVIDERS: PCP Internal Medicine; Referring Provider Physician Assistant; Visit Provider Physician Assistant
DX: M75.111 Incomplete rotator cuff tear or rupture of right shoulder, not specified as traumatic (principal); M19.011 Primary osteoarthritis, right shoulder; S43.431A Superior glenoid labrum lesion of right shoulder, initial encounter
CPT/HCPCS: 23350; 73222; 77002

== ENCOUNTER 2023-02-06 10:30 | Outpatient (RCR) | payer MEDICARE, SELFPAY ==
[2022-10-23 11:50] VITALS: BMI 24.3
--- NOTE | 2023-01-01 09:59 | PT.OIE ---
Current Diagnoses Adhesive capsulitis of right shoulder (12/27/22) Past Medical History (Last Updated 02/26/22 @ 12:04 by Jose Brito MD) Anemia of chronic disease Back pain (03/19/14) CAD (coronary atherosclerotic disease) (~1998) Cardiomyopathy Chronic renal failure, stage 3a Diabetic peripheral neuropathy (11/10/15) Fibromyalgia (03/12/17) Foraminal stenosis of lumbosacral region GERD (gastroesophageal reflux disease) Herniated disc Hypertension Insomnia Mixed hyperlipidemia Myocardial infarction (~1998) Recurrent major depressive disorder, in full remission Type 2 diabetes mellitus with hyperglycemia Type 2 diabetes mellitus without complication Uncomplicated opioid dependence Unspecified asthma Past Surgical History (Last Reviewed 03/16/20 @ 07:01 by PEPE Yousif) S/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 Status post appendectomy Surgical procedure planned Visit Care Team Role Provider Type Jose Brito MD Family Provider Physician Primary Care Provider Specialty: Internal Medicine Address: [address] [place] [address], [id number] Email: [email or web address] Michael Bernstein MD Attending Provider Physician Referring Provider Specialty: Orthopedic Surgery Address: [address] [place] [address], [id number] Email: [email or web address] Physical Therapy Initial Evaluation PT-OP-A Visit Information Start: 12/27/22 11:14 Freq: Status: Active Protocol: Document 12/27/22 11:16 TH (Rec: 12/27/22 12:15 TH [id number]) Out-Patient Physical Therapy Visit Information Visit Information Visit Type Initial Evaluation Visit Start Time 11:20 Visit Stop Time 12:20 Total Visit Minutes 60 Visit Number 1 Number of TAG MAKER Visits 0 Precautions Precautions Fall risk due to left LE neuropathy PT-OP-B Current Condition Start: 12/27/22 11:14 Freq: Status: Active Protocol: Document 12/27/22 11:16 TH (Rec: 12/27/22 12:15 TH [id number]) Current Condition History of Current Condition Onset Date 11/26/22 Current Complaints right shoulder pain History of Current Condition Pt reports right shoulder pain is acute on chronic. She noticed it has been difficult to lift laundry basket and hard to perform other ADLs starting about a month ago. Pt states she had a steroid injection about 2 weeks ago. Per pt. the injection has helped. Prior to injection pt had diffculty with ADLs involving reaching. Treatment Goals Patient/Caregiver Goals Pt would like to return to PLOF Prior Functional Status Baseline Function- ADL's Independent Current Functional Impairments (Reported) Functional Limitations- ADL's Difficulty brushing hair , lifting laundry basket and rwaching up over head/ reach back. PT-OP-C Subjective Start: 12/27/22 11:14 Freq: Status: Active Protocol: Document 01/01/23 09:06 TH (Rec: 01/01/23 09:07 TH [id number]) Patient Questionnaires Quick Dash- Upper Extremity Quick Dash UE Impairment 80 to 99% Impaired (Score 80- 99) PT-OP-K Range of Motion Start: 12/27/22 11:14 Freq: Status: Active Protocol: Document 12/27/22 11:16 TH (Rec: 12/27/22 12:15 TH [id number]) Shoulder Goniometric Range of Motion Shoulder right Flexion 110 Abduction 100 External Rotation at 90 degrees 65 Abduction Internal Rotation Behind Back (text) T7 Comments right scapular ant. tilt / increased depression PT-OP-Q Treatments Start: 12/27/22 11:14 Freq: Status: Active Protocol: Document 12/27/22 11:20 TH (Rec: 01/01/23 08:51 TH [id number]) Therapeutic Activity Therapeutic Activity 1 Reps/Minutes 0 Comments Trapezius stretch 1 x 3 for 30 sec supine AAROM abduction 1 x 10 Supine AAROM flexion 1x 10 ( handout provided)/ medbridge Manual Therapy Treatment Manual Techniques Manual Comments Right subscapularis release. PT-OP-T Assessment and Plan Start: 12/27/22 11:14 Freq: Status: Active Protocol: Document 12/27/22 11:16 TH (Rec: 12/27/22 12:15 TH [id number]) Physical Therapy Assessment Rehab Potential Rehabilitation Potential Good Goals Three Impairment Difficulty brushing hair, reaching above 90 degrees. Short Term Goal (STG) Pt will be able to brush her hair /reach into cabinets with right shoulder pain <=3/10. STG Duration 4 weeks Sight Mounter Goal (LTG) Pt will be able to brush her hair /reach into cabinets with minimal to no right shoulder pain. LTG Duration 10 weeks Two Impairment unable to lift laundry basket/ heavy objects. Short Term Goal (STG) Pt will be able to lift and carry laundry basket with minimal to no right shoulder pain. STG Duration 4 weeks Senior Care Goal (LTG) Pt will be able to lift and carry heavy objects with minimal to no right shoulder pain. LTG Duration 10 weeks One Impairment Decreased right shoulder rom. Short Term Goal (STG) Right shoulder flexion, abduction will improve to 125 degrees with minimal to no shoulder pain. STG Duration 4 weeks Senior Care Goal (LTG) Right shoulder flexion, abduction will improve to WNL with minimal to no shoulder pain. LTG Duration 10 weeks Assessment Summary Assessment Pt presents with right shoulder impingement / tendinitis. Pt will benefit from further PT to improve right shoulder strength/ stability. Physical Therapy Plan Frequency and Duration Frequency of Treatment 2x/Week Duration of treatment (weeks) 10 Plan of Care Start Date 12/27/22 Plan of Care End Date 03/07/23 Therapeutic Interventions Therapeutic Interventions Home Exercise Program,Joint Mobilizations,Manual Therapy, Neuromuscular Re-education, Self-Care/Home Management,Soft Tissue Mobilization,Taping, Therapeutic Activities, Therapeutic Exercises Modalities Cold Pack/Ice Massage,Hot Packs,Ultrasound Next Visit Focus/Plan Next Note Type Treatment Note
--- NOTE | 2023-01-01 10:00 | PT.OPPOC ---
Physical, Occupational & Speech Therapy At [facility] Current Diagnoses Adhesive capsulitis of right shoulder (12/27/22) Visit Care Team Role Provider Type Jose Brito MD Family Provider Physician Primary Care Provider Specialty: Internal Medicine Address: [address] [place] [address], [facility] [address], [place], [address] Email: [email or web address] Michael Bernstein MD Attending Provider Physician Referring Provider Specialty: Orthopedic Surgery Address: [address] [place] [address], [id number] Email: [email or web address] Plan Of Care PT-OP-T Assessment and Plan Start: 12/27/22 11:14 Freq: Status: Active Protocol: Document 12/27/22 11:16 TH (Rec: 12/27/22 12:15 TH [id number]) Physical Therapy Assessment Rehab Potential Rehabilitation Potential Good Goals Three Impairment Difficulty brushing hair, reaching above 90 degrees. Short Term Goal (STG) Pt will be able to brush her hair /reach into cabinets with right shoulder pain <=3/10. STG Duration 4 weeks Fdc Goal (LTG) Pt will be able to brush her hair /reach into cabinets with minimal to no right shoulder pain. LTG Duration 10 weeks Two Impairment unable to lift laundry basket/ heavy objects. Short Term Goal (STG) Pt will be able to lift and carry laundry basket with minimal to no right shoulder pain. STG Duration 4 weeks Pot Holder Binder Goal (LTG) Pt will be able to lift and carry heavy objects with minimal to no right shoulder pain. LTG Duration 10 weeks One Impairment Decreased right shoulder rom. Short Term Goal (STG) Right shoulder flexion, abduction will improve to 125 degrees with minimal to no shoulder pain. STG Duration 4 weeks Pot Holder Binder Goal (LTG) Right shoulder flexion, abduction will improve to WNL with minimal to no shoulder pain. LTG Duration 10 weeks Assessment Summary Assessment Pt presents with right shoulder impingement / tendinitis. Pt will benefit from further PT to improve right shoulder strength/ stability. Physical Therapy Plan Frequency and Duration Frequency of Treatment 2x/Week Duration of treatment (weeks) 10 Plan of Care Start Date 12/27/22 Plan of Care End Date 03/07/23 Therapeutic Interventions Therapeutic Interventions Home Exercise Program,Joint Mobilizations,Manual Therapy, Neuromuscular Re-education, Self-Care/Home Management,Soft Tissue Mobilization,Taping, Therapeutic Activities, Therapeutic Exercises Modalities Cold Pack/Ice Massage,Hot Packs,Ultrasound Next Visit Focus/Plan Next Note Type Treatment Note Plan of Care Dates Plan of Care Start Date 12/27/22 Plan of Care End Date 03/07/23 Electronically Signed by: Piper Cao, PT 01/01/23 1000 If you are in agreement with this Plan of Care, please return a signed and dated copy. I have reviewed this Plan of Care and certify that the skilled therapy services above are required to meet the patient?s needs. Physician Signature Date Printed Name and Credentials Clinical Instructor Signature Printed Name and Credentials
--- NOTE | 2023-01-01 12:55 | PT.OTN ---
Current Diagnoses Adhesive capsulitis of right shoulder (01/01/23) Physical Therapy Treatment Note PT-OP-A Visit Information Start: 12/27/22 11:14 Freq: Status: Active Protocol: Document 01/01/23 10:40 LRN (Rec: 01/01/23 11:32 LRN [id number]) Out-Patient Physical Therapy Visit Information Visit Information Visit Type Treatment Note Visit Start Time 10:40 Visit Stop Time 11:18 Total Visit Minutes 38 Visit Number 2 Precautions Precautions Fall risk due to left LE neuropathy PT-OP-B Current Condition Start: 12/27/22 11:14 Freq: Status: Active Protocol: Document 12/27/22 11:16 TH (Rec: 12/27/22 12:15 TH [id number]) Current Condition History of Current Condition Onset Date 11/26/22 Current Complaints right shoulder pain History of Current Condition Pt reports right shoulder pain is acute on chronic. She noticed it has been difficult to lift laundry basket and hard to perform other ADLs starting about a month ago. Pt states she had a steroid injection about 2 weeks ago. Per pt. the injection has helped. Prior to injection pt had diffculty with ADLs involving reaching. Treatment Goals Patient/Caregiver Goals Pt would like to return to PLOF Prior Functional Status Baseline Function- ADL's Independent Current Functional Impairments (Reported) Functional Limitations- ADL's Difficulty brushing hair , lifting laundry basket and rwaching up over head/ reach back. PT-OP-C Subjective Start: 12/27/22 11:14 Freq: Status: Active Protocol: Document 01/01/23 10:40 LRN (Rec: 01/01/23 11:32 LRN [id number]) OP-PT Subjective Patient Comments Patient Comments Doing ex's felt more on L side , and used Voltarin on it. R side feels great since cortisne injection. PT-OP-K Range of Motion Start: 12/27/22 11:14 Freq: Status: Active Protocol: Document 12/27/22 11:16 TH (Rec: 12/27/22 12:15 TH [id number]) Shoulder Goniometric Range of Motion Shoulder right Flexion 110 Abduction 100 External Rotation at 90 degrees 65 Abduction Internal Rotation Behind Back (text) T7 Comments right scapular ant. tilt / increased depression PT-OP-Q Treatments Start: 12/27/22 11:14 Freq: Status: Active Protocol: Document 01/01/23 10:40 LRN (Rec: 01/01/23 11:32 LRN [id number]) Therapeutic Exercises Supine Exercises Scap retract Supine Exercise Name TA tight/Scap retract Side bilateral Reps/Minutes 3' TA/Alt arm lifts Supine Exercise Name TA/Alternate arm lifts Side bilateral Reps/Minutes 5 SH x 15 each TA tightening Supine Exercise Name TA tightening training and awareness Reps/Minutes 8' Comments Knees flexed & knees straight Standing Exercises Sword Draw Ex Standing Exercise Name Active PNF (hip > AB > flex) Side right Reps/Minutes 4' Comments Assist needed for guided mvmt and limit of range. Row Standing Exercise Name Row Side bilateral Equipment Used Lev 2, phys & v cuing to keep pressures on feet equal, spread legs for bal Reps/Minutes 7' Comments Much v & phy cuing to keep TA tight w/knees straight, pelvis neutral Posture training Standing Exercise Name Standing against wall for posture training with TA tightening Equipment Used phys & v cuing to keep pressures on feet equal, spread legs for bal Reps/Minutes 16' Comments Much v & phy cuing to keep TA tight w/knees straight, pelvis neutral PT-OP-T Assessment and Plan Start: 12/27/22 11:14 Freq: Status: Active Protocol: Document 01/01/23 10:40 LRN (Rec: 01/01/23 11:32 LRN [id number]) Physical Therapy Assessment Goals Three Impairment Difficulty brushing hair, reaching above 90 degrees. Short Term Goal (STG) Pt will be able to brush her hair /reach into cabinets with right shoulder pain <=3/10. STG Duration 4 weeks Senior Living Goal (LTG) Pt will be able to brush her hair /reach into cabinets with minimal to no right shoulder pain. LTG Duration 10 weeks Two Impairment unable to lift laundry basket/ heavy objects. Short Term Goal (STG) Pt will be able to lift and carry laundry basket with minimal to no right shoulder pain. STG Duration 4 weeks Senior Living Goal (LTG) Pt will be able to lift and carry heavy objects with minimal to no right shoulder pain. LTG Duration 10 weeks One Impairment Decreased right shoulder rom. Short Term Goal (STG) Right shoulder flexion, abduction will improve to 125 degrees with minimal to no shoulder pain. STG Duration 4 weeks Senior Living Goal (LTG) Right shoulder flexion, abduction will improve to WNL with minimal to no shoulder pain. LTG Duration 10 weeks Assessment Summary Assessment Pt has good tolerance to exercise with no c/o R shoulder pain. She has very poor core stability with UE ex 's; therefore scap stab is difficult. Pt is very receptive to education and ex' s. Physical Therapy Plan Frequency and Duration Frequency of Treatment 2x/Week Duration of treatment (weeks) 10 Plan of Care Start Date 12/27/22 Plan of Care End Date 03/07/23 Next Visit Focus/Plan Next Note Type Treatment Note Next Visit Plan Assess if futher training is needed for core stab with UE ex's (TA tightening). Progress R shoulder ROM/ strengthening.
--- NOTE | 2023-01-03 15:29 | PT.OTN ---
Current Diagnoses Adhesive capsulitis of right shoulder (01/03/23) Physical Therapy Treatment Note PT-OP-A Visit Information Start: 12/27/22 11:14 Freq: Status: Active Protocol: Document 01/03/23 11:15 TH (Rec: 01/03/23 15:29 TH [id number]) Out-Patient Physical Therapy Visit Information Visit Information Visit Type Treatment Note Visit Start Time 11:15 Visit Stop Time 12:00 Total Visit Minutes 45 Visit Number 2 Number of JAVA PROGRAMMER Visits 0 PT-OP-B Current Condition Start: 12/27/22 11:14 Freq: Status: Active Protocol: Document 12/27/22 11:16 TH (Rec: 12/27/22 12:15 TH [id number]) Current Condition History of Current Condition Onset Date 11/26/22 Current Complaints right shoulder pain History of Current Condition Pt reports right shoulder pain is acute on chronic. She noticed it has been difficult to lift laundry basket and hard to perform other ADLs starting about a month ago. Pt states she had a steroid injection about 2 weeks ago. Per pt. the injection has helped. Prior to injection pt had diffculty with ADLs involving reaching. Treatment Goals Patient/Caregiver Goals Pt would like to return to PLOF Prior Functional Status Baseline Function- ADL's Independent Current Functional Impairments (Reported) Functional Limitations- ADL's Difficulty brushing hair , lifting laundry basket and rwaching up over head/ reach back. PT-OP-C Subjective Start: 12/27/22 11:14 Freq: Status: Active Protocol: Document 01/03/23 11:15 TH (Rec: 01/03/23 15:29 TH [id number]) OP-PT Subjective Patient Comments Patient Comments Pt states that right shoulder has been feeling better since steroid injection and thus far is unable to discern if Pt has helped. Patient Reported Progress Improving PT-OP-K Range of Motion Start: 12/27/22 11:14 Freq: Status: Active Protocol: Document 01/03/23 11:15 TH (Rec: 01/03/23 15:29 TH [id number]) Shoulder Goniometric Range of Motion Shoulder right Testing Position Standing Flexion 125 Abduction 130 External Rotation at 0 degrees Abduction 85 Internal Rotation Behind Back (text) L4 PT-OP-Q Treatments Start: 12/27/22 11:14 Freq: Status: Active Protocol: Document 01/03/23 11:15 TH (Rec: 01/03/23 15:29 TH [id number]) Manual Therapy Treatment Manual Techniques 2nd rib mobilization Comments right ir/er stretch Body Position Supine Comments with shld at 90 degrees abd. subscapularis release Comments right GHJ glides Comments Prone ant. GHJ glide grade II supine GHJ inf./post. glide grade II PT-OP-T Assessment and Plan Start: 12/27/22 11:14 Freq: Status: Active Protocol: Document 01/03/23 11:15 TH (Rec: 01/03/23 15:29 TH [id number]) Physical Therapy Assessment Goals Three Impairment Difficulty brushing hair, reaching above 90 degrees. Short Term Goal (STG) Pt will be able to brush her hair /reach into cabinets with right shoulder pain <=3/10. STG Duration 4 weeks Lodge Sales Associate Goal (LTG) Pt will be able to brush her hair /reach into cabinets with minimal to no right shoulder pain. LTG Duration 10 weeks Two Impairment unable to lift laundry basket/ heavy objects. Short Term Goal (STG) Pt will be able to lift and carry laundry basket with minimal to no right shoulder pain. STG Duration 4 weeks Residential Goal (LTG) Pt will be able to lift and carry heavy objects with minimal to no right shoulder pain. LTG Duration 10 weeks One Impairment Decreased right shoulder rom. Short Term Goal (STG) Right shoulder flexion, abduction will improve to 125 degrees with minimal to no shoulder pain. STG Duration 4 weeks Lodge Sales Associate Goal (LTG) Right shoulder flexion, abduction will improve to WNL with minimal to no shoulder pain. LTG Duration 10 weeks Assessment Summary Assessment Pt is making steady progress with rom. Physical Therapy Plan Frequency and Duration Frequency of Treatment 2x/Week Duration of treatment (weeks) 10 Plan of Care Start Date 12/27/22 Plan of Care End Date 03/07/23 Therapeutic Interventions Therapeutic Interventions Home Exercise Program,Joint Mobilizations,Manual Therapy, Neuromuscular Re-education, Self-Care/Home Management,Soft Tissue Mobilization,Taping, Therapeutic Activities, Therapeutic Exercises Modalities Cold Pack/Ice Massage,Electric Stimulation,Hot Packs, Ultrasound
--- NOTE | 2023-01-08 12:27 | PT.OTN ---
Current Diagnoses Adhesive capsulitis of right shoulder (01/08/23) Physical Therapy Treatment Note PT-OP-A Visit Information Start: 12/27/22 11:14 Freq: Status: Active Protocol: Document 01/08/23 12:14 TH (Rec: 01/08/23 12:27 TH [id number]) Out-Patient Physical Therapy Visit Information Visit Information Visit Type Treatment Note Visit Start Time 09:45 Visit Stop Time 10:30 Total Visit Minutes 45 Visit Number 4 Number of GEOMETRY PROFESSOR Visits 0 PT-OP-B Current Condition Start: 12/27/22 11:14 Freq: Status: Active Protocol: Document 12/27/22 11:16 TH (Rec: 12/27/22 12:15 TH [id number]) Current Condition History of Current Condition Onset Date 11/26/22 Current Complaints right shoulder pain History of Current Condition Pt reports right shoulder pain is acute on chronic. She noticed it has been difficult to lift laundry basket and hard to perform other ADLs starting about a month ago. Pt states she had a steroid injection about 2 weeks ago. Per pt. the injection has helped. Prior to injection pt had diffculty with ADLs involving reaching. Treatment Goals Patient/Caregiver Goals Pt would like to return to PLOF Prior Functional Status Baseline Function- ADL's Independent Current Functional Impairments (Reported) Functional Limitations- ADL's Difficulty brushing hair , lifting laundry basket and rwaching up over head/ reach back. PT-OP-C Subjective Start: 12/27/22 11:14 Freq: Status: Active Protocol: Document 01/08/23 12:14 TH (Rec: 01/08/23 12:27 TH [id number]) OP-PT Subjective Patient Comments Patient Comments Pt reports steroid injection is starting to wear off and she is now feeling some achiness. PT-OP-K Range of Motion Start: 12/27/22 11:14 Freq: Status: Active Protocol: Document 01/08/23 12:14 TH (Rec: 01/08/23 12:27 TH [id number]) Shoulder Goniometric Range of Motion Shoulder right Flexion 128 Abduction 130 External Rotation at 0 degrees Abduction 85 Internal Rotation Behind Back (text) L1 PT-OP-Q Treatments Start: 12/27/22 11:14 Freq: Status: Active Protocol: Document 01/08/23 12:14 TH (Rec: 01/08/23 12:27 TH [id number]) Therapeutic Exercises Supine Exercises D2 Comments 1 x 10 without resistance. horizontal abduction Supine Exercise Name ( orange band) Comments Cues for proper execution of ex. Other Exercises wall circles Comments 2 x 10 clockwise and counterclockwise (small circles/s using towel on wall Manual Therapy Treatment Other Other Manual Treatments 1)2nd/3rd rib mobilization. 2)Subscapularis release. 3) Ant. GHJ glide Grade I-II 4) ER/IR sretch with shld at 90 degrees. PT-OP-T Assessment and Plan Start: 12/27/22 11:14 Freq: Status: Active Protocol: Document 01/08/23 12:14 TH (Rec: 01/08/23 12:27 TH [id number]) Physical Therapy Assessment Goals Three Impairment Difficulty brushing hair, reaching above 90 degrees. Short Term Goal (STG) Pt will be able to brush her hair /reach into cabinets with right shoulder pain <=3/10. STG Duration 4 weeks Superintendent Commissary Goal (LTG) Pt will be able to brush her hair /reach into cabinets with minimal to no right shoulder pain. LTG Duration 10 weeks Two Impairment unable to lift laundry basket/ heavy objects. Short Term Goal (STG) Pt will be able to lift and carry laundry basket with minimal to no right shoulder pain. STG Duration 4 weeks Alf Goal (LTG) Pt will be able to lift and carry heavy objects with minimal to no right shoulder pain. LTG Duration 10 weeks One Impairment Decreased right shoulder rom. Short Term Goal (STG) Right shoulder flexion, abduction will improve to 125 degrees with minimal to no shoulder pain. STG Duration 4 weeks Superintendent Commissary Goal (LTG) Right shoulder flexion, abduction will improve to WNL with minimal to no shoulder pain. LTG Duration 10 weeks Physical Therapy Plan Frequency and Duration Frequency of Treatment 2x/Week Duration of treatment (weeks) 10 Plan of Care Start Date 12/27/22 Plan of Care End Date 03/07/23 Therapeutic Interventions Therapeutic Interventions Home Exercise Program,Joint Mobilizations,Manual Therapy, Neuromuscular Re-education, Self-Care/Home Management,Soft Tissue Mobilization,Taping, Therapeutic Activities, Therapeutic Exercises Modalities Cold Pack/Ice Massage,Electric Stimulation,Hot Packs, Ultrasound
--- NOTE | 2023-01-15 10:47 | PT.OTN ---
Current Diagnoses Adhesive capsulitis of right shoulder (01/15/23) Physical Therapy Treatment Note PT-OP-A Visit Information Start: 12/27/22 11:14 Freq: Status: Active Protocol: Document 01/15/23 09:25 TH (Rec: 01/15/23 10:46 TH [id number]) Out-Patient Physical Therapy Visit Information Visit Information Visit Type Treatment Note Visit Start Time 09:50 Visit Stop Time 10:35 Total Visit Minutes 45 Visit Number 5 Number of FORENSIC NURSE Visits 0 PT-OP-B Current Condition Start: 12/27/22 11:14 Freq: Status: Active Protocol: Document 12/27/22 11:16 TH (Rec: 12/27/22 12:15 TH [id number]) Current Condition History of Current Condition Onset Date 11/26/22 Current Complaints right shoulder pain History of Current Condition Pt reports right shoulder pain is acute on chronic. She noticed it has been difficult to lift laundry basket and hard to perform other ADLs starting about a month ago. Pt states she had a steroid injection about 2 weeks ago. Per pt. the injection has helped. Prior to injection pt had diffculty with ADLs involving reaching. Treatment Goals Patient/Caregiver Goals Pt would like to return to PLOF Prior Functional Status Baseline Function- ADL's Independent Current Functional Impairments (Reported) Functional Limitations- ADL's Difficulty brushing hair , lifting laundry basket and rwaching up over head/ reach back. PT-OP-C Subjective Start: 12/27/22 11:14 Freq: Status: Active Protocol: Document 01/15/23 09:25 TH (Rec: 01/15/23 10:46 TH [id number]) OP-PT Subjective Patient Comments Patient Comments Pt states that right shoulder is gradulaly improving since the injection and start of PT. However, left shld is starting to feel achy. PT-OP-K Range of Motion Start: 12/27/22 11:14 Freq: Status: Active Protocol: Document 01/15/23 09:25 TH (Rec: 01/15/23 10:46 TH [id number]) Shoulder Goniometric Range of Motion Shoulder left Flexion 115 Abduction 120 External Rotation at 0 degrees Abduction 85 Internal Rotation Behind Back (text) WNL right Flexion 128 Abduction 130 External Rotation at 0 degrees Abduction 85 Internal Rotation Behind Back (text) T6 PT-OP-Q Treatments Start: 12/27/22 11:14 Freq: Status: Active Protocol: Document 01/15/23 09:25 TH (Rec: 01/15/23 10:46 [id number]) Therapeutic Exercises Supine Exercises horizontal abduction Comments 3 x 10 green band Standing Exercises Sword Draw Ex Comments in supine without resistance / cues for proper form Other Exercises er Comments bilat. er with orange band 1 x 10 Manual Therapy Treatment Manual Techniques er/IR stretch Comments with shld in 90 degree abd. right subscapularis release Comments with passive shld abd Manual Type GHJ mob Comments INF/ posterior GHJ mob Grade II PT-OP-T Assessment and Plan Start: 12/27/22 11:14 Freq: Status: Active Protocol: Document 01/15/23 09:25 TH (Rec: 01/15/23 10:46 TH [id number]) Physical Therapy Assessment Goals Three Impairment Difficulty brushing hair, reaching above 90 degrees. Short Term Goal (STG) Pt will be able to brush her hair /reach into cabinets with right shoulder pain <=3/10. STG Duration 4 weeks Fpc Goal (LTG) Pt will be able to brush her hair /reach into cabinets with minimal to no right shoulder pain. LTG Duration 10 weeks Two Impairment unable to lift laundry basket/ heavy objects. Short Term Goal (STG) Pt will be able to lift and carry laundry basket with minimal to no right shoulder pain. STG Duration 4 weeks Fpc Goal (LTG) Pt will be able to lift and carry heavy objects with minimal to no right shoulder pain. LTG Duration 10 weeks One Impairment Decreased right shoulder rom. Short Term Goal (STG) Right shoulder flexion, abduction will improve to 125 degrees with minimal to no shoulder pain. STG Duration 4 weeks Oil Distributor Tender Goal (LTG) Right shoulder flexion, abduction will improve to WNL with minimal to no shoulder pain. LTG Duration 10 weeks Physical Therapy Plan Frequency and Duration Frequency of Treatment 2x/Week Duration of treatment (weeks) 10 Plan of Care Start Date 12/27/22 Plan of Care End Date 03/07/23 Therapeutic Interventions Therapeutic Interventions Home Exercise Program,Joint Mobilizations,Manual Therapy, Neuromuscular Re-education, Self-Care/Home Management,Soft Tissue Mobilization,Taping, Therapeutic Activities, Therapeutic Exercises Modalities Cold Pack/Ice Massage,Electric Stimulation,Hot Packs, Ultrasound Next Visit Focus/Plan Next Note Type Treatment Note Next Visit Plan Assess if futher training is needed for core stab with UE ex's (TA tightening). Progress R shoulder ROM/ strengthening.
--- NOTE | 2023-01-15 11:04 | PT.OTN ---
Current Diagnoses Adhesive capsulitis of right shoulder (01/15/23) Physical Therapy Treatment Note PT-OP-A Visit Information Start: 12/27/22 11:14 Freq: Status: Active Protocol: Document 01/15/23 09:25 TH (Rec: 01/15/23 10:46 TH [id number]) Out-Patient Physical Therapy Visit Information Visit Information Visit Type Treatment Note Visit Start Time 09:50 Visit Stop Time 10:35 Total Visit Minutes 45 Visit Number 5 Number of PARACHUTE RIGGER Visits 0 PT-OP-B Current Condition Start: 12/27/22 11:14 Freq: Status: Active Protocol: Document 12/27/22 11:16 TH (Rec: 12/27/22 12:15 TH [id number]) Current Condition History of Current Condition Onset Date 11/26/22 Current Complaints right shoulder pain History of Current Condition Pt reports right shoulder pain is acute on chronic. She noticed it has been difficult to lift laundry basket and hard to perform other ADLs starting about a month ago. Pt states she had a steroid injection about 2 weeks ago. Per pt. the injection has helped. Prior to injection pt had diffculty with ADLs involving reaching. Treatment Goals Patient/Caregiver Goals Pt would like to return to PLOF Prior Functional Status Baseline Function- ADL's Independent Current Functional Impairments (Reported) Functional Limitations- ADL's Difficulty brushing hair , lifting laundry basket and rwaching up over head/ reach back. PT-OP-C Subjective Start: 12/27/22 11:14 Freq: Status: Active Protocol: Document 01/15/23 09:25 TH (Rec: 01/15/23 10:46 TH [id number]) OP-PT Subjective Patient Comments Patient Comments Pt states that right shoulder is gradulaly improving since the injection and start of PT. However, left shld is starting to feel achy. PT-OP-K Range of Motion Start: 12/27/22 11:14 Freq: Status: Active Protocol: Document 01/15/23 09:25 TH (Rec: 01/15/23 10:46 TH [id number]) Shoulder Goniometric Range of Motion Shoulder left Flexion 115 Abduction 120 External Rotation at 0 degrees Abduction 85 Internal Rotation Behind Back (text) WNL right Flexion 128 Abduction 130 External Rotation at 0 degrees Abduction 85 Internal Rotation Behind Back (text) T6 PT-OP-Q Treatments Start: 12/27/22 11:14 Freq: Status: Active Protocol: Document 01/15/23 09:25 TH (Rec: 01/15/23 10:46 [id number]) Therapeutic Exercises Supine Exercises horizontal abduction Comments 3 x 10 green band Standing Exercises Sword Draw Ex Comments in supine without resistance / cues for proper form Other Exercises er Comments bilat. er with orange band 1 x 10 Manual Therapy Treatment Manual Techniques er/IR stretch Comments with shld in 90 degree abd. right subscapularis release Comments with passive shld abd Manual Type GHJ mob Comments INF/ posterior GHJ mob Grade II PT-OP-T Assessment and Plan Start: 12/27/22 11:14 Freq: Status: Active Protocol: Document 01/15/23 09:25 TH (Rec: 01/15/23 10:46 TH [id number]) Physical Therapy Assessment Goals Three Impairment Difficulty brushing hair, reaching above 90 degrees. Short Term Goal (STG) Pt will be able to brush her hair /reach into cabinets with right shoulder pain <=3/10. STG Duration 4 weeks Senior Living Goal (LTG) Pt will be able to brush her hair /reach into cabinets with minimal to no right shoulder pain. LTG Duration 10 weeks Two Impairment unable to lift laundry basket/ heavy objects. Short Term Goal (STG) Pt will be able to lift and carry laundry basket with minimal to no right shoulder pain. STG Duration 4 weeks Senior Living Goal (LTG) Pt will be able to lift and carry heavy objects with minimal to no right shoulder pain. LTG Duration 10 weeks One Impairment Decreased right shoulder rom. Short Term Goal (STG) Right shoulder flexion, abduction will improve to 125 degrees with minimal to no shoulder pain. STG Duration 4 weeks Sales Engineering Manager Goal (LTG) Right shoulder flexion, abduction will improve to WNL with minimal to no shoulder pain. LTG Duration 10 weeks Physical Therapy Plan Frequency and Duration Frequency of Treatment 2x/Week Duration of treatment (weeks) 10 Plan of Care Start Date 12/27/22 Plan of Care End Date 03/07/23 Therapeutic Interventions Therapeutic Interventions Home Exercise Program,Joint Mobilizations,Manual Therapy, Neuromuscular Re-education, Self-Care/Home Management,Soft Tissue Mobilization,Taping, Therapeutic Activities, Therapeutic Exercises Modalities Cold Pack/Ice Massage,Electric Stimulation,Hot Packs, Ultrasound Next Visit Focus/Plan Next Note Type Treatment Note Next Visit Plan Assess if futher training is needed for core stab with UE ex's (TA tightening). Progress R shoulder ROM/ strengthening.
--- NOTE | 2023-01-17 10:30 | PT.OTN ---
Current Diagnoses Adhesive capsulitis of right shoulder (01/17/23) Physical Therapy Treatment Note PT-OP-A Visit Information Start: 12/27/22 11:14 Freq: Status: Active Protocol: Document 01/17/23 09:25 TH (Rec: 01/17/23 10:30 TH [id number]) Out-Patient Physical Therapy Visit Information Visit Information Visit Type Treatment Note Visit Start Time 09:45 Visit Stop Time 10:30 Total Visit Minutes 45 Visit Number 6 Number of FACILITIES PROJECT MANAGER Visits 0 PT-OP-B Current Condition Start: 12/27/22 11:14 Freq: Status: Active Protocol: Document 12/27/22 11:16 TH (Rec: 12/27/22 12:15 TH [id number]) Current Condition History of Current Condition Onset Date 11/26/22 Current Complaints right shoulder pain History of Current Condition Pt reports right shoulder pain is acute on chronic. She noticed it has been difficult to lift laundry basket and hard to perform other ADLs starting about a month ago. Pt states she had a steroid injection about 2 weeks ago. Per pt. the injection has helped. Prior to injection pt had diffculty with ADLs involving reaching. Treatment Goals Patient/Caregiver Goals Pt would like to return to PLOF Prior Functional Status Baseline Function- ADL's Independent Current Functional Impairments (Reported) Functional Limitations- ADL's Difficulty brushing hair , lifting laundry basket and rwaching up over head/ reach back. PT-OP-C Subjective Start: 12/27/22 11:14 Freq: Status: Active Protocol: Document 01/17/23 09:25 TH (Rec: 01/17/23 10:30 TH [id number]) OP-PT Subjective Patient Comments Patient Comments Pt states that right shld PT-OP-K Range of Motion Start: 12/27/22 11:14 Freq: Status: Active Protocol: Document 01/17/23 09:25 TH (Rec: 01/17/23 10:30 TH [id number]) Shoulder Goniometric Range of Motion Shoulder right Flexion 130 Abduction 130 External Rotation at 0 degrees Abduction 90 Internal Rotation Behind Back (text) T4 PT-OP-Q Treatments Start: 12/27/22 11:14 Freq: Status: Active Protocol: Document 01/17/23 09:25 TH (Rec: 01/17/23 10:30 TH [id number]) Therapeutic Exercises Other Exercises rib tuck in supine Comments 1 x 10 5 sec holds anatomical posture Comments 1 x 10 5 sec holds Manual Therapy Treatment Manual Techniques subscapularis release Comments right with passive shld abduction TIFFANIEValerie kilgore Comments CANDY mob ant. ( right) PT-OP-T Assessment and Plan Start: 12/27/22 11:14 Freq: Status: Active Protocol: Document 01/17/23 09:25 TH (Rec: 01/17/23 10:30 TH [id number]) Physical Therapy Assessment Goals Three Impairment Difficulty brushing hair, reaching above 90 degrees. Short Term Goal (STG) Pt will be able to brush her hair /reach into cabinets with right shoulder pain <=3/10. STG Duration 4 weeks Lpn Care Manager Goal (LTG) Pt will be able to brush her hair /reach into cabinets with minimal to no right shoulder pain. LTG Duration 10 weeks Two Impairment unable to lift laundry basket/ heavy objects. Short Term Goal (STG) Pt will be able to lift and carry laundry basket with minimal to no right shoulder pain. STG Duration 4 weeks Lpn Care Manager Goal (LTG) Pt will be able to lift and carry heavy objects with minimal to no right shoulder pain. LTG Duration 10 weeks One Impairment Decreased right shoulder rom. Short Term Goal (STG) Right shoulder flexion, abduction will improve to 125 degrees with minimal to no shoulder pain. STG Duration 4 weeks Senior Living Goal (LTG) Right shoulder flexion, abduction will improve to WNL with minimal to no shoulder pain. LTG Duration 10 weeks Assessment Summary Assessment Pt is making good progress as demonstrated by shld rom WNL now and minimal pain. Physical Therapy Plan Frequency and Duration Frequency of Treatment 2x/Week Duration of treatment (weeks) 10 Plan of Care Start Date 12/27/22 Plan of Care End Date 03/07/23 Therapeutic Interventions Therapeutic Interventions Home Exercise Program,Joint Mobilizations,Manual Therapy, Neuromuscular Re-education, Self-Care/Home Management,Soft Tissue Mobilization,Taping, Therapeutic Activities, Therapeutic Exercises Modalities Cold Pack/Ice Massage,Electric Stimulation,Hot Packs, Ultrasound Next Visit Focus/Plan Next Visit Plan Spinal alignment Shld strengthening/ focus on proper technique.
--- NOTE | 2023-01-23 09:49 | PT.OTN ---
Current Diagnoses Adhesive capsulitis of right shoulder (01/23/23) Physical Therapy Treatment Note PT-OP-A Visit Information Start: 12/27/22 11:14 Freq: Status: Active Protocol: Document 01/23/23 09:00 TH (Rec: 01/23/23 09:49 TH [id number]) Out-Patient Physical Therapy Visit Information Visit Information Visit Type Treatment Note Visit Start Time 09:00 Visit Stop Time 09:45 Total Visit Minutes 45 Visit Number 7 Number of BEAR KEEPER Visits 0 PT-OP-B Current Condition Start: 12/27/22 11:14 Freq: Status: Active Protocol: Document 12/27/22 11:16 TH (Rec: 12/27/22 12:15 TH [id number]) Current Condition History of Current Condition Onset Date 11/26/22 Current Complaints right shoulder pain History of Current Condition Pt reports right shoulder pain is acute on chronic. She noticed it has been difficult to lift laundry basket and hard to perform other ADLs starting about a month ago. Pt states she had a steroid injection about 2 weeks ago. Per pt. the injection has helped. Prior to injection pt had diffculty with ADLs involving reaching. Treatment Goals Patient/Caregiver Goals Pt would like to return to PLOF Prior Functional Status Baseline Function- ADL's Independent Current Functional Impairments (Reported) Functional Limitations- ADL's Difficulty brushing hair , lifting laundry basket and rwaching up over head/ reach back. PT-OP-C Subjective Start: 12/27/22 11:14 Freq: Status: Active Protocol: Document 01/23/23 09:00 TH (Rec: 01/23/23 09:49 TH [id number]) OP-PT Subjective Patient Comments Patient Comments Pt states that right shld PT-OP-K Range of Motion Start: 12/27/22 11:14 Freq: Status: Active Protocol: Document 01/23/23 09:00 TH (Rec: 01/23/23 09:49 TH [id number]) Shoulder Goniometric Range of Motion Shoulder right Flexion 130 Abduction 130 External Rotation at 0 degrees Abduction 90 Internal Rotation Behind Back (text) T4 PT-OP-Q Treatments Start: 12/27/22 11:14 Freq: Status: Active Protocol: Document 01/23/23 09:00 TH (Rec: 01/23/23 09:49 TH [id number]) Therapeutic Exercises Supine Exercises D2 Comments 2 x 10 light blue band Other Exercises cervica; flexion Comments 1 x10 in supine articulation ex. Manual Therapy Treatment Manual Techniques CANDY kilgore Comments CANDY mob ant. / inf. ( right) PT-OP-T Assessment and Plan Start: 12/27/22 11:14 Freq: Status: Active Protocol: Document 01/23/23 09:00 TH (Rec: 01/23/23 09:49 TH [id number]) Physical Therapy Assessment Goals Three Impairment Difficulty brushing hair, reaching above 90 degrees. Short Term Goal (STG) Pt will be able to brush her hair /reach into cabinets with right shoulder pain <=3/10. STG Duration 4 weeks Fpc Goal (LTG) Pt will be able to brush her hair /reach into cabinets with minimal to no right shoulder pain. LTG Duration 10 weeks Two Impairment unable to lift laundry basket/ heavy objects. Short Term Goal (STG) Pt will be able to lift and carry laundry basket with minimal to no right shoulder pain. STG Duration 4 weeks Fpc Goal (LTG) Pt will be able to lift and carry heavy objects with minimal to no right shoulder pain. LTG Duration 10 weeks One Impairment Decreased right shoulder rom. Short Term Goal (STG) Right shoulder flexion, abduction will improve to 125 degrees with minimal to no shoulder pain. STG Duration 4 weeks Automobile Service Station Manager Goal (LTG) Right shoulder flexion, abduction will improve to WNL with minimal to no shoulder pain. LTG Duration 10 weeks Assessment Summary Assessment Pt is making excellent progress as demonstrated by decreased pain and improved r shld rom. Will f/u with one more visit to finalize visit. Physical Therapy Plan Frequency and Duration Frequency of Treatment 2x/Week Duration of treatment (weeks) 10 Plan of Care Start Date 12/27/22 Plan of Care End Date 03/07/23 Therapeutic Interventions Therapeutic Interventions Home Exercise Program,Joint Mobilizations,Manual Therapy, Neuromuscular Re-education, Self-Care/Home Management,Soft Tissue Mobilization,Taping, Therapeutic Activities, Therapeutic Exercises Modalities Cold Pack/Ice Massage,Electric Stimulation,Hot Packs, Ultrasound
--- NOTE | 2023-02-06 11:17 | PT.OPDS ---
Current Diagnoses Adhesive capsulitis of right shoulder (02/06/23) Visit Care Team Role Provider Type Jose Brito MD Family Provider Physician Primary Care Provider Specialty: Internal Medicine Address: [address] [place] [address], [address], [address] Email: [email or web address] Michael Bernstein MD Attending Provider Physician Referring Provider Specialty: Orthopedics Orthopedic Surgery Address: [address] [place] [address], [place], [address] Email: [email or web address] Visit Number Visit Number 8 Discharge Summary PT-OP-B Current Condition Start: 12/27/22 11:14 Freq: Status: Active Protocol: Document 12/27/22 11:16 TH (Rec: 12/27/22 12:15 TH [id number]) Current Condition History of Current Condition Onset Date 11/26/22 Current Complaints right shoulder pain History of Current Condition Pt reports right shoulder pain is acute on chronic. She noticed it has been difficult to lift laundry basket and hard to perform other ADLs starting about a month ago. Pt states she had a steroid injection about 2 weeks ago. Per pt. the injection has helped. Prior to injection pt had diffculty with ADLs involving reaching. Treatment Goals Patient/Caregiver Goals Pt would like to return to PLOF Prior Functional Status Baseline Function- ADL's Independent Current Functional Impairments (Reported) Functional Limitations- ADL's Difficulty brushing hair , lifting laundry basket and rwaching up over head/ reach back. PT-OP-C Subjective Start: 12/27/22 11:14 Freq: Status: Active Protocol: Document 02/06/23 10:40 TH (Rec: 02/06/23 11:17 TH [id number]) OP-PT Subjective Patient Comments Patient Comments Pt states that right shoulder has been feeling pretty good and she has returned to her normal routine without flare ups. Patient Reported Progress Improving PT-OP-K Range of Motion Start: 12/27/22 11:14 Freq: Status: Active Protocol: Document 01/23/23 09:00 TH (Rec: 01/23/23 09:49 TH [id number]) Shoulder Goniometric Range of Motion Shoulder right Flexion 130 Abduction 130 External Rotation at 0 degrees Abduction 90 Internal Rotation Behind Back (text) T4 PT-OP-T Assessment and Plan Start: 12/27/22 11:14 Freq: Status: Active Protocol: Document 02/06/23 10:40 TH (Rec: 02/06/23 11:17 TH [id number]) Physical Therapy Assessment Goals Three Impairment Difficulty brushing hair, reaching above 90 degrees. Short Term Goal (STG) Pt will be able to brush her hair /reach into cabinets with right shoulder pain <=3/10. STG Duration 4 weeks Lawn Mower Mechanic Goal (LTG) Pt will be able to brush her hair /reach into cabinets with minimal to no right shoulder pain. LTG Duration 10 weeks MET Two Impairment unable to lift laundry basket/ heavy objects. Short Term Goal (STG) Pt will be able to lift and carry laundry basket with minimal to no right shoulder pain. STG Duration 4 weeks Lawn Mower Mechanic Goal (LTG) Pt will be able to lift and carry heavy objects with minimal to no right shoulder pain. LTG Duration 10 weeks MET One Impairment Decreased right shoulder rom. Short Term Goal (STG) Right shoulder flexion, abduction will improve to 125 degrees with minimal to no shoulder pain. STG Duration 4 weeks Senior Care Goal (LTG) Right shoulder flexion, abduction will improve to WNL with minimal to no shoulder pain. LTG Duration 10 weeks MET Assessment Summary Assessment Pt has full rom and improving strength of right shld. She no longer has pain and has returned to daily activities without issue. Pt has been DC fcrom PT as she has met all gials. Physical Therapy Plan Frequency and Duration Frequency of Treatment 2x/Week Duration of treatment (weeks) 10 Plan of Care Start Date 12/27/22 Plan of Care End Date 03/07/23 Therapeutic Interventions Therapeutic Interventions Home Exercise Program,Joint Mobilizations,Manual Therapy, Neuromuscular Re-education, Self-Care/Home Management,Soft Tissue Mobilization,Taping, Therapeutic Activities, Therapeutic Exercises Modalities Cold Pack/Ice Massage,Electric Stimulation,Hot Packs, Ultrasound
== END 2023-02-25 11:29 ==
LOC: PHYS 10:30
PROVIDERS: Family Provider Internal Medicine; PCP Internal Medicine; Referring Provider Orthopaedic Surgery; Visit Provider Orthopaedic Surgery
DX: M75.01 Adhesive capsulitis of right shoulder (principal)
CPT/HCPCS: 97014; 97110; 97140; 97161; 97530; G0283

== ENCOUNTER → 2023-04-20 08:04 | Outpatient (CLI) | payer MEDICARE, SELFPAY ==
[2022-10-23 11:50] VITALS: BMI 24.3
[2023-04-20 08:40] LABS: Alanine Aminotransferase 24 IU/L (<35); Albumin 4.3 g/dL (3.5-5.0); Albumin Globulin Ratio 1.7 (1.0-2.8); Alkaline Phosphatase 64 U/L (38-126); Aspartate Aminotransferase 22 IU/L (14-36); BUN Creatinine Ratio 18.1 (6-22); Bilirubin Total 0.4 mg/dL (0.2-1.3); Blood Urea Nitrogen 21 mg/dL (7-17); Calcium 9.3 mg/dL (8.4-10.2); Carbon Dioxide 25 mmol/L (22-32); Chloride 106 mmol/L (98-107); Estimated Glomerular Filt Rate 52 mL/min (>60); Globulin 2.5 g/dL (1.7-4.1); Glucose 130 mg/dL (80-110); HEMOLYSIS < 15 (0-50); Potassium 5.3 mmol/L (3.4-5.1); Sodium 139 mmol/L (137-145); Total Protein 6.8 g/dL (6.3-8.2)
[2023-04-22 02:06] LABS: Labcorp Hemoglobin (Hb) A1c 6.5 % (4.8-5.6)
== END ==
PROVIDERS: Family Provider Internal Medicine; PCP Internal Medicine; Referring Provider Internal Medicine; Visit Provider Internal Medicine
DX: E11.9 Type 2 diabetes mellitus without complications (principal)
CPT/HCPCS: 36415; 80053; 83036

== ENCOUNTER 2023-07-03 10:00 | Outpatient (RCR) | payer MEDICARE, SELFPAY ==
[2022-10-23 11:50] VITALS: BMI 24.3
--- NOTE | 2023-02-26 12:25 | PT.OIE ---
Current Diagnoses Pain in right shoulder (02/26/23) Pain in left shoulder (02/26/23) Unspecified rotator cuff tear or rupture of right shoulder, not specified as traumatic (02/26/23) Past Medical History (Last Updated 02/26/22 @ 12:04 by Jose Brito MD) Anemia of chronic disease Back pain (03/19/14) CAD (coronary atherosclerotic disease) (~1998) Cardiomyopathy Chronic renal failure, stage 3a Diabetic peripheral neuropathy (11/10/15) Fibromyalgia (03/12/17) Foraminal stenosis of lumbosacral region GERD (gastroesophageal reflux disease) Herniated disc Hypertension Insomnia Mixed hyperlipidemia Myocardial infarction (~1998) Recurrent major depressive disorder, in full remission Type 2 diabetes mellitus with hyperglycemia Type 2 diabetes mellitus without complication Uncomplicated opioid dependence Unspecified asthma Past Surgical History (Last Reviewed 03/16/20 @ 07:01 by PEPE Yousif) S/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 Status post appendectomy Surgical procedure planned Visit Care Team Role Provider Type Jose Brito MD Attending Provider Physician Family Provider Primary Care Provider Referring Provider Specialty: Internal Medicine Address: [address] [place] [address], [address], [facility] Email: [email or web address] Physical Therapy Initial Evaluation PT-OP-A Visit Information Start: 02/26/23 11:09 Freq: Status: Active Protocol: Document 02/26/23 11:16 TH (Rec: 02/26/23 12:24 TH [id number]) Out-Patient Physical Therapy Visit Information Visit Information Visit Type Initial Evaluation Visit Start Time 11:15 Visit Stop Time 12:00 Total Visit Minutes 45 Visit Number 1 Number of REFRACTORY FURNACE DESIGNER Visits 0 PT-OP-B Current Condition Start: 02/26/23 11:09 Freq: Status: Active Protocol: Document 02/26/23 11:16 TH (Rec: 02/26/23 12:24 TH [id number]) Current Condition History of Current Condition Onset Date 02/2023 History of Current Condition Pt states left shoulder pain is acute on chronic. 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 Pt has been seen here for her right shoulder that has now improved and left has flared up due to increased usage. Prior Functional Status Baseline Function- ADL's Independent Baseline Function- Mobility Independent Current Functional Impairments (Reported) Functional Limitations- ADL's IND though left shoulder pain with reaching and lifting PT-OP-K Range of Motion Start: 02/26/23 11:09 Freq: Status: Active Protocol: Document 02/26/23 11:16 TH (Rec: 02/26/23 12:24 TH [id number]) Cervical Spine Range of Motion Cervical Spine Active Comments Flex: WFL hypomobilie ( C5-7) Ext: WFL hypomobile ( C5-7) Rot. R : WNL , Rot. L : limited Shoulder Goniometric Range of Motion Shoulder left Shoulder ROM WFL Yes Comments Flex: WNL Abd: WNL ER: WNL IR: WNL PT-OP-L Special Tests Start: 02/26/23 11:09 Freq: Status: Active Protocol: Document 02/26/23 11:16 TH (Rec: 02/26/23 12:24 TH [id number]) Special Tests Shoulder Special Tests Quick DASH Test Results 29% PT-OP-Q Treatments Start: 02/26/23 11:09 Freq: Status: Active Protocol: Document 02/26/23 11:16 TH (Rec: 02/26/23 12:24 TH [id number]) Self-Care/Home Management Treatment Education Patient Education Home Exercise Program Other Education Access Code: [email or web address] URL: [email or web address] Date: 02/26/2023 Prepared by: Piper Cao Exercises - Supine Cervical Retraction with Towel - 1 x daily - 7 x weekly - 1 sets - 10 reps - 5 sec hold PT-OP-R Modalities Start: 02/26/23 11:09 Freq: Status: Active Protocol: Document 02/26/23 11:16 TH (Rec: 02/26/23 12:24 TH [id number]) Spinal Traction Traction Treatment neck Traction Treatment Comment Jose ( cervical traction) PT-OP-T Assessment and Plan Start: 02/26/23 11:09 Freq: Status: Active Protocol: Document 02/26/23 11:16 TH (Rec: 02/26/23 12:24 TH [id number]) Physical Therapy Assessment Rehab Potential Rehabilitation Potential Excellent Evaluation Complexity Number of Personal Factors/Comorbidities 0 Number of Body Systems Impaired 1-2 Clinical Presentation at Evaluation Stable Goals Three Impairment Difficulty reaching up/out Short Term Goal (STG) Pt will be able to reach into cupboards with pain < = 4/10. STG Duration 04/09/23 Correction Goal (LTG) Pt will be able to reach into cupboards with minimal to no left shoulder pain. LTG Duration 05/21/23 Two Impairment Lifting difficult Short Term Goal (STG) Pt will be able to lift 15-20 lb boxes with left shoulder pain < = 4/10 afterwards. STG Duration 04/09/23 Dry Wall Sprayer Goal (LTG) Pt will be able to lift 20 lb boxes with minimal to no left shoulder pain. LTG Duration 05/21/23 One Impairment Left cervical rotation limited Short Term Goal (STG) Left cervical rotation will improve by 50 % STG Duration 04/09/23 Correction Goal (LTG) Left cervical rot. will improve by 100% to WNL. LTG Duration 05/21/23 Assessment Summary Assessment Pt presents with muscle imbalance of neck and shoulder muscles leading to left shouler pain. Pt will benefit from further PT to improve ecrvical mobility as well as shoulder strength. Physical Therapy Plan Frequency and Duration Frequency of Treatment 1x/Week Duration of treatment (weeks) 12 Plan of Care Start Date 02/26/23 Plan of Care End Date 05/21/23 Therapeutic Interventions Therapeutic Interventions Coordination Training,Home Exercise Program,Joint Mobilizations,Manual Therapy, Neuromuscular Re-education, Orthotic/Prosthetic Management ,Patient/Caregiver Education, Self-Care/Home Management, Sensory Integration,Soft Tissue Mobilization,Taping, Therapeutic Activities, Therapeutic Exercises Modalities Cold Pack/Ice Massage,Electric Stimulation,Hot Packs, Traction- Mechanical, Ultrasound Next Visit Focus/Plan Next Visit Plan cervical traction Shoulder GHJ mob bilat cervical/shld strength
--- NOTE | 2023-02-26 12:25 | PT.OPPOC ---
Physical, Occupational & Speech Therapy At [facility] Current Diagnoses Pain in right shoulder (02/26/23) Pain in left shoulder (02/26/23) Unspecified rotator cuff tear or rupture of right shoulder, not specified as traumatic (02/26/23) Visit Care Team Role Provider Type Jose Brito MD Attending Provider Physician Family Provider Primary Care Provider Referring Provider Specialty: Internal Medicine Address: [address] [place] [address], [address], [address] Email: [email or web address] Plan Of Care PT-OP-T Assessment and Plan Start: 02/26/23 11:09 Freq: Status: Active Protocol: Document 02/26/23 11:16 TH (Rec: 02/26/23 12:24 TH [id number]) Physical Therapy Assessment Rehab Potential Rehabilitation Potential Excellent Evaluation Complexity Number of Personal Factors/Comorbidities 0 Number of Body Systems Impaired 1-2 Clinical Presentation at Evaluation Stable Goals Three Impairment Difficulty reaching up/out Short Term Goal (STG) Pt will be able to reach into cupboards with pain < = 4/10. STG Duration 04/09/23 Director Executive Communications Goal (LTG) Pt will be able to reach into cupboards with minimal to no left shoulder pain. LTG Duration 05/21/23 Two Impairment Lifting difficult Short Term Goal (STG) Pt will be able to lift 15-20 lb boxes with left shoulder pain < = 4/10 afterwards. STG Duration 04/09/23 Director Executive [employer] Goal (LTG) Pt will be able to lift 20 lb boxes with minimal to no left shoulder pain. LTG Duration 05/21/23 One Impairment Left cervical rotation limited Short Term Goal (STG) Left cervical rotation will improve by 50 % STG Duration 04/09/23 Director Executive Communications Goal (LTG) Left cervical rot. will improve by 100% to WNL. LTG Duration 05/21/23 Assessment Summary Assessment Pt presents with muscle imbalance of neck and shoulder muscles leading to left shouler pain. Pt will benefit from further PT to improve ecrvical mobility as well as shoulder strength. Physical Therapy Plan Frequency and Duration Frequency of Treatment 1x/Week Duration of treatment (weeks) 12 Plan of Care Start Date 02/26/23 Plan of Care End Date 05/21/23 Therapeutic Interventions Therapeutic Interventions Coordination Training,Home Exercise Program,Joint Mobilizations,Manual Therapy, Neuromuscular Re-education, Orthotic/Prosthetic Management ,Patient/Caregiver Education, Self-Care/Home Management, Sensory Integration,Soft Tissue Mobilization,Taping, Therapeutic Activities, Therapeutic Exercises Modalities Cold Pack/Ice Massage,Electric Stimulation,Hot Packs, Traction- Mechanical, Ultrasound Next Visit Focus/Plan Next Visit Plan cervical traction Shoulder GHJ mob bilat cervical/shld strength Plan of Care Dates Plan of Care Start Date 02/26/23 Plan of Care End Date 05/21/23 Electronically Signed by: Piper Cao, PT 02/26/23 9788 If you are in agreement with this Plan of Care, please return a signed and dated copy. I have reviewed this Plan of Care and certify that the skilled therapy services above are required to meet the patient?s needs. Physician Signature Date Printed Name and Credentials Clinical Instructor Signature Printed Name and Credentials
--- NOTE | 2023-03-06 16:50 | PT.OTN ---
Current Diagnoses Pain in right shoulder (03/06/23) Pain in left shoulder (03/06/23) Unspecified rotator cuff tear or rupture of right shoulder, not specified as traumatic (03/06/23) Physical Therapy Treatment Note PT-OP-A Visit Information Start: 02/26/23 11:09 Freq: Status: Active Protocol: Document 03/06/23 10:56 SW (Rec: 03/06/23 12:25 [id number]) Out-Patient Physical Therapy Visit Information Visit Information Visit Type Treatment Note Visit Start Time 10:49 Visit Stop Time 11:37 Total Visit Minutes 48 Visit Number 1 Number of ROW BOSS Visits 1 PT-OP-B Current Condition Start: 02/26/23 11:09 Freq: Status: Active Protocol: Document 02/26/23 11:16 TH (Rec: 02/26/23 12:24 TH [id number]) Current Condition History of Current Condition Onset Date 02/2023 History of Current Condition Pt states left shoulder pain is acute on chronic. 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 Pt has been seen here for her right shoulder that has now improved and left has flared up due to increased usage. Prior Functional Status Baseline Function- ADL's Independent Baseline Function- Mobility Independent Current Functional Impairments (Reported) Functional Limitations- ADL's IND though left shoulder pain with reaching and lifting PT-OP-C Subjective Start: 02/26/23 11:09 Freq: Status: Active Protocol: Document 03/06/23 10:56 SW (Rec: 03/06/23 12:25 [id number]) OP-PT Subjective Patient Comments Patient Comments Pt reports L back and hip, lasted 3-4 days, started , has since subsided. Using medicine for it. PT-OP-K Range of Motion Start: 02/26/23 11:09 Freq: Status: Active Protocol: Document 02/26/23 11:16 TH (Rec: 02/26/23 12:24 TH [id number]) Cervical Spine Range of Motion Cervical Spine Active Comments Flex: WFL hypomobilie ( C5-7) Ext: WFL hypomobile ( C5-7) Rot. R : WNL , Rot. L : limited Shoulder Goniometric Range of Motion Shoulder left Shoulder ROM WFL Yes Comments Flex: WNL Abd: WNL ER: WNL IR: WNL PT-OP-L Special Tests Start: 02/26/23 11:09 Freq: Status: Active Protocol: Document 02/26/23 11:16 TH (Rec: 02/26/23 12:24 TH [id number]) Special Tests Shoulder Special Tests Quick DASH Test Results 29% PT-OP-Q Treatments Start: 02/26/23 11:09 Freq: Status: Active Protocol: Document 03/06/23 10:56 SW (Rec: 03/06/23 12:25 SW [id number]) Cardio Equipment Upper Body Ergometer (UBE) Duration (Minutes) 5 RPM 26 Seat Position 11 Height 3 Therapeutic Exercises Sitting Exercises Scapular Retraction Side bilateral Resistance AROM Reps/Minutes 5 x 3 sec hold ER Sitting Exercise Name Shoulder ER Side bilateral Resistance [place] TB Reps/Minutes 2x10 Comments Verbal and tactile cues required for elbows at side and no rotation Rows Resistance [place] TB Equipment Used Therapist assist Comments Tactile cues to facilitate the activation of scapular Horizontal abduction Sitting Exercise Name Horizontal shoulder abduction Side bilateral Resistance [place] Standing Exercises Wall posture Standing Exercise Name Wall posture Equipment Used @wall Reps/Minutes 3x 5 sec hold axial elongation Comments reccommend wall angels next tx Manual Therapy Treatment Joint Mobilizations Posterior/inferior Joint R shoulder Direction Posterior, inferior Grade I Body Position Supine Reps/Duration 3 x 20 sec Comments VC to breathe and allow body to relax Manual Traction R shldr distraction Body Position Supine Reps/Duration 3 x 20 sec Comments VC to breathe and allow body to relax Self-Care/Home Management Treatment Education Patient Education Body Mechanics,Posture PT-OP-R Modalities Start: 02/26/23 11:09 Freq: Status: Active Protocol: Document 02/26/23 11:16 TH (Rec: 02/26/23 12:24 TH [id number]) Spinal Traction Traction Treatment neck Traction Treatment Comment Jose ( cervical traction) PT-OP-T Assessment and Plan Start: 02/26/23 11:09 Freq: Status: Active Protocol: Document 03/06/23 10:56 SW (Rec: 03/06/23 12:25 SW [id number]) Physical Therapy Assessment Goals Three Impairment Difficulty reaching up/out Short Term Goal (STG) Pt will be able to reach into cupboards with pain < = 4/10. STG Duration 04/09/23 Research Food Technologist Goal (LTG) Pt will be able to reach into cupboards with minimal to no left shoulder pain. LTG Duration 05/21/23 Two Impairment Lifting difficult Short Term Goal (STG) Pt will be able to lift 15-20 lb boxes with left shoulder pain < = 4/10 afterwards. STG Duration 04/09/23 Research Food Technologist Goal (LTG) Pt will be able to lift 20 lb boxes with minimal to no left shoulder pain. LTG Duration 05/21/23 One Impairment Left cervical rotation limited Short Term Goal (STG) Left cervical rotation will improve by 50 % STG Duration 04/09/23 Jail Goal (LTG) Left cervical rot. will improve by 100% to WNL. LTG Duration 05/21/23 Assessment Summary Assessment Pt reports adherance to prescribed HEP. She is doing what she can, but staying active with chores and volunteer work when she is not able to do HEP. Educated her on posture when she is doing activities and what to watch out for, so not to increase symptoms. Physical Therapy Plan Frequency and Duration Frequency of Treatment 1x/Week Duration of treatment (weeks) 12 Plan of Care Start Date 02/26/23 Plan of Care End Date 05/21/23 Next Visit Focus/Plan Next Visit Plan cervical traction Shoulder GHJ mob bilat cervical/shld strength
--- NOTE | 2023-03-14 12:17 | PT.OTN ---
Current Diagnoses Pain in right shoulder (03/14/23) Pain in left shoulder (03/14/23) Unspecified rotator cuff tear or rupture of right shoulder, not specified as traumatic (03/14/23) Physical Therapy Treatment Note PT-OP-A Visit Information Start: 02/26/23 11:09 Freq: Status: Active Protocol: Document 03/14/23 09:18 SW (Rec: 03/14/23 10:03 SW [id number]) Out-Patient Physical Therapy Visit Information Visit Information Visit Type Treatment Note Visit Start Time 09:18 Visit Stop Time 10:00 Total Visit Minutes 42 Visit Number 3 Number of GROUP RESERVATIONS COORDINATOR Visits 2 PT-OP-B Current Condition Start: 02/26/23 11:09 Freq: Status: Active Protocol: Document 02/26/23 11:16 TH (Rec: 02/26/23 12:24 TH [id number]) Current Condition History of Current Condition Onset Date 02/2023 History of Current Condition Pt states left shoulder pain is acute on chronic. 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 Pt has been seen here for her right shoulder that has now improved and left has flared up due to increased usage. 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 Pain, tightness in neck present. PT-OP-K Range of Motion Start: 02/26/23 11:09 Freq: Status: Active Protocol: Document 02/26/23 11:16 TH (Rec: 02/26/23 12:24 TH [id number]) Cervical Spine Range of Motion Cervical Spine Active Comments Flex: WFL hypomobilie ( C5-7) Ext: WFL hypomobile ( C5-7) Rot. R : WNL , Rot. L : limited Shoulder Goniometric Range of Motion Shoulder left Shoulder ROM WFL Yes Comments Flex: WNL Abd: WNL ER: WNL IR: WNL PT-OP-L Special Tests Start: 02/26/23 11:09 Freq: Status: Active Protocol: Document 02/26/23 11:16 TH (Rec: 02/26/23 12:24 TH [id number]) Special Tests Shoulder Special Tests Quick DASH Test Results 29% PT-OP-Q Treatments Start: 02/26/23 11:09 Freq: Status: Active Protocol: Document 03/14/23 09:18 SW (Rec: 03/14/23 10:03 SW [id number]) Cardio Equipment Upper Body Ergometer (UBE) Duration (Minutes) 6 RPM 23 Seat Position 11 Height 3 Therapeutic Exercises Sitting Exercises Cervical isometric Sitting Exercise Name frontal/sagital/horizontal plane Equipment Used Therapist assist Reps/Minutes 3 x 10 Cervical stretches Sitting Exercise Name Levator, UT, rotation Side bilateral Reps/Minutes 3 x 30 Pulleys Sitting Exercise Name flexion (frontal/scapular plane), abd Equipment Used ball for tactile feedback, thoracic posture Comments VC posture, chin tuck Scapular Retraction Side bilateral Resistance AROM Reps/Minutes 5x10 hold Comments seated yellow ball to facilitate ext of thoracic spine Rows Resistance [place] TB Equipment Used Therapist assist Comments Tactile cues to facilitate the activation of scapular Horizontal abduction Sitting Exercise Name Horizontal shoulder abduction Side bilateral Resistance [place] TB Reps/Minutes 2 x 10 Standing Exercises Pec Stretch Standing Exercise Name corner pec stretch Reps/Minutes 2 x 30 Comments VC for cervical alignment PT-OP-R Modalities Start: 02/26/23 11:09 Freq: Status: Active Protocol: Document 02/26/23 11:16 TH (Rec: 02/26/23 12:24 TH [id number]) Spinal Traction Traction Treatment neck Traction Treatment Comment Jose ( cervical traction) PT-OP-T Assessment and Plan Start: 02/26/23 11:09 Freq: Status: Active Protocol: Document 03/14/23 09:18 SW (Rec: 03/14/23 10:03 SW [id number]) Physical Therapy Assessment Goals Three Impairment Difficulty reaching up/out Short Term Goal (STG) Pt will be able to reach into cupboards with pain < = 4/10. STG Duration 04/09/23 Correction Goal (LTG) Pt will be able to reach into cupboards with minimal to no left shoulder pain. LTG Duration 05/21/23 Two Impairment Lifting difficult Short Term Goal (STG) Pt will be able to lift 15-20 lb boxes with left shoulder pain < = 4/10 afterwards. STG Duration 04/09/23 Screen Maker Goal (LTG) Pt will be able to lift 20 lb boxes with minimal to no left shoulder pain. LTG Duration 05/21/23 One Impairment Left cervical rotation limited Short Term Goal (STG) Left cervical rotation will improve by 50 % STG Duration 04/09/23 Screen Maker Goal (LTG) Left cervical rot. will improve by 100% to WNL. LTG Duration 05/21/23 Assessment Summary Assessment Started gentle cervical strengthening this session. Mod vc'ing for posture with ther ex today, good carryover with self correction toward end of session. Difficulty carrying out strengthening exercises without compensations, improved with verbal/tactile cues and repetitions. Physical Therapy Plan Frequency and Duration Frequency of Treatment 1x/Week Duration of treatment (weeks) 12 Plan of Care Start Date 02/26/23 Plan of Care End Date 05/21/23 Therapeutic Interventions Therapeutic Interventions Coordination Training,Home Exercise Program,Joint Mobilizations,Manual Therapy, Neuromuscular Re-education, Orthotic/Prosthetic Management ,Patient/Caregiver Education, Self-Care/Home Management, Sensory Integration,Soft Tissue Mobilization,Taping, Therapeutic Activities, Therapeutic Exercises Modalities Cold Pack/Ice Massage,Electric Stimulation,Hot Packs, Traction- Mechanical, Ultrasound Next Visit Focus/Plan Next Visit Plan cervical traction Shoulder GHJ mob bilat cervical/shld strength lifting techniques
--- NOTE | 2023-03-20 15:16 | PT.OTN ---
Current Diagnoses Pain in right shoulder (03/20/23) Pain in left shoulder (03/20/23) Unspecified rotator cuff tear or rupture of right shoulder, not specified as traumatic (03/20/23) Physical Therapy Treatment Note PT-OP-A Visit Information Start: 02/26/23 11:09 Freq: Status: Active Protocol: Document 03/20/23 08:42 [facility] (Rec: 03/20/23 15:16 [facility] [id number]) Out-Patient Physical Therapy Visit Information Visit Information Visit Type Treatment Note Visit Start Time 09:05 Visit Stop Time 09:50 Total Visit Minutes 45 Visit Number 4 Number of SPINNER IRON Visits 0 PT-OP-B Current Condition Start: 02/26/23 11:09 Freq: Status: Active Protocol: Document 02/26/23 11:16 TH (Rec: 02/26/23 12:24 TH [id number]) Current Condition History of Current Condition Onset Date 02/2023 History of Current Condition Pt states left shoulder pain is acute on chronic. 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 Pt has been seen here for her right shoulder that has now improved and left has flared up due to increased usage. Prior Functional Status Baseline Function- ADL's Independent Baseline Function- Mobility Independent Current Functional Impairments (Reported) Functional Limitations- ADL's IND though left shoulder pain with reaching and lifting PT-OP-C Subjective Start: 02/26/23 11:09 Freq: Status: Active Protocol: Document 03/20/23 08:42 [facility] (Rec: 03/20/23 15:16 [facility] [id number]) OP-PT Subjective Patient Comments Patient Comments Pt reports she feels like traction does help. She has been very busy w/things that require liftng that make her sore. points to CT junction and upper tspine and reports most pain here PT-OP-K Range of Motion Start: 02/26/23 11:09 Freq: Status: Active Protocol: Document 02/26/23 11:16 TH (Rec: 02/26/23 12:24 TH [id number]) Cervical Spine Range of Motion Cervical Spine Active Comments Flex: WFL hypomobilie ( C5-7) Ext: WFL hypomobile ( C5-7) Rot. R : WNL , Rot. L : limited Shoulder Goniometric Range of Motion Shoulder left Shoulder ROM WFL Yes Comments Flex: WNL Abd: WNL ER: WNL IR: WNL PT-OP-L Special Tests Start: 02/26/23 11:09 Freq: Status: Active Protocol: Document 02/26/23 11:16 TH (Rec: 02/26/23 12:24 TH [id number]) Special Tests Shoulder Special Tests Quick DASH Test Results 29% PT-OP-Q Treatments Start: 02/26/23 11:09 Freq: Status: Active Protocol: Document 03/20/23 08:42 [facility] (Rec: 03/20/23 15:16 [facility] [id number]) Therapeutic Exercises Sitting Exercises ER Sitting Exercise Name Shoulder ER Side bilateral Resistance orangeTB Reps/Minutes 2x10 Comments w/towels at sidesa nd prontation Rows Resistance [place] TB Reps/Minutes 15 Comments Tactile cues to facilitate the activation of scapular Standing Exercises Wall posture Standing Exercise Name Wall posture w/shoulder ext Equipment Used @wall Reps/Minutes 1 min hold x2 Comments inc time to work on postural stability Manual Therapy Treatment Joint Mobilizations thoracic Joint UPA L FM T1-3; transverse glide L FM PT-OP-R Modalities Start: 02/26/23 11:09 Freq: Status: Active Protocol: Document 03/20/23 08:42 [facility] (Rec: 03/20/23 15:16 [facility] [id number]) Spinal Traction Traction Treatment neck Patient Position Hooklying Force Applied (Pounds) 12 Traction Treatment Comment Jose ( cervical traction) PT-OP-T Assessment and Plan Start: 02/26/23 11:09 Freq: Status: Active Protocol: Document 03/20/23 08:42 [facility] (Rec: 03/20/23 15:16 [facility] [id number]) Physical Therapy Assessment Goals Three Impairment Difficulty reaching up/out Short Term Goal (STG) Pt will be able to reach into cupboards with pain < = 4/10. STG Duration 04/09/23 [facility] Goal (LTG) Pt will be able to reach into cupboards with minimal to no left shoulder pain. LTG Duration 05/21/23 Two Impairment Lifting difficult Short Term Goal (STG) Pt will be able to lift 15-20 lb boxes with left shoulder pain < = 4/10 afterwards. STG Duration 04/09/23 [facility] Goal (LTG) Pt will be able to lift 20 lb boxes with minimal to no left shoulder pain. LTG Duration 05/21/23 One Impairment Left cervical rotation limited Short Term Goal (STG) Left cervical rotation will improve by 50 % STG Duration 04/09/23 Life Specialist Goal (LTG) Left cervical rot. will improve by 100% to WNL. LTG Duration 05/21/23 Assessment Summary Assessment Pt did well with exercises but did require signifiant cueing for positioning. She felt relief w/manual and had imrpoved rotation R. She feels traction feels good. Physical Therapy Plan Frequency and Duration Frequency of Treatment 1x/Week Duration of treatment (weeks) 12 Plan of Care Start Date 02/26/23 Plan of Care End Date 05/21/23 Next Visit Focus/Plan Next Visit Plan cervical traction Shoulder GHJ mob bilat cervical/shld strength lifting techniques
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
--- NOTE | 2023-04-02 10:51 | PT.OTN ---
Current Diagnoses Pain in right shoulder (04/02/23) Pain in left shoulder (04/02/23) Unspecified rotator cuff tear or rupture of right shoulder, not specified as traumatic (04/02/23) Physical Therapy Treatment Note PT-OP-A Visit Information Start: 02/26/23 11:09 Freq: Status: Active Protocol: Document 04/02/23 10:02 [facility] (Rec: 04/02/23 10:51 [facility] [id number]) Out-Patient Physical Therapy Visit Information Visit Information Visit Type Treatment Note Visit Start Time 10:01 Visit Stop Time 10:50 Total Visit Minutes 49 Visit Number 6 Number of SALES ACCOUNT EXECUTIVE Visits 0 PT-OP-B Current Condition Start: 02/26/23 11:09 Freq: Status: Active Protocol: Document 02/26/23 11:16 TH (Rec: 02/26/23 12:24 TH [id number]) Current Condition History of Current Condition Onset Date 02/2023 History of Current Condition Pt states left shoulder pain is acute on chronic. 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 Pt has been seen here for her right shoulder that has now improved and left has flared up due to increased usage. Prior Functional Status Baseline Function- ADL's Independent Baseline Function- Mobility Independent Current Functional Impairments (Reported) Functional Limitations- ADL's IND though left shoulder pain with reaching and lifting PT-OP-C Subjective Start: 02/26/23 11:09 Freq: Status: Active Protocol: Document 04/02/23 10:02 [facility] (Rec: 04/02/23 10:51 [facility] [id number]) OP-PT Subjective Patient Comments Patient Comments Pt reports she has been sore in L shoulder blade superior region for last couple days. She is just doing normal cleaning stuff so unsure why. PT-OP-K Range of Motion Start: 02/26/23 11:09 Freq: Status: Active Protocol: Document 02/26/23 11:16 TH (Rec: 02/26/23 12:24 TH [id number]) Cervical Spine Range of Motion Cervical Spine Active Comments Flex: WFL hypomobilie ( C5-7) Ext: WFL hypomobile ( C5-7) Rot. R : WNL , Rot. L : limited Shoulder Goniometric Range of Motion Shoulder left Shoulder ROM WFL Yes Comments Flex: WNL Abd: WNL ER: WNL IR: WNL PT-OP-L Special Tests Start: 02/26/23 11:09 Freq: Status: Active Protocol: Document 02/26/23 11:16 TH (Rec: 02/26/23 12:24 TH [id number]) Special Tests Shoulder Special Tests Quick DASH Test Results 29% PT-OP-Q Treatments Start: 02/26/23 11:09 Freq: Status: Active Protocol: Document 04/02/23 10:02 [facility] (Rec: 04/02/23 10:51 [facility] [id number]) Therapeutic Exercises Sidelying Exercises open book Sidelying Exercise Name max cues for trunk motion vs shoulder Habd Side bilateral Reps/Minutes 15 Sitting Exercises stretch Sitting Exercise Name rotation stretch Side bilateral Reps/Minutes 5 sec x5 a Comments cues for entire body rot Manual Therapy Treatment Soft Tissue Mobilization post Body Location l rhomboids & lats Mobilization Type Rolling,Strumming Intensity/Depth Moderate Body Position Sidelying Joint Mobilizations ribs Comments L PA ribs 1-3 & cudal glide FM supien and s/l caudal rib 5 FM thoracic Comments UPA T1-3 L FM & UPA T5 FM PT-OP-R Modalities Start: 02/26/23 11:09 Freq: Status: Active Protocol: Document 04/02/23 10:02 [facility] (Rec: 04/02/23 10:51 [facility] [id number]) Spinal Traction Traction Treatment neck Patient Position Hooklying Force Applied (Pounds) 15 Duration of Treatment (Minutes) 10 Traction Treatment Comment Jose ( cervical traction) PT-OP-T Assessment and Plan Start: 02/26/23 11:09 Freq: Status: Active Protocol: Document 04/02/23 10:02 [facility] (Rec: 04/02/23 10:51 [facility] [id number]) Physical Therapy Assessment Goals Three Impairment Difficulty reaching up/out Short Term Goal (STG) Pt will be able to reach into cupboards with pain < = 4/10. STG Duration 04/09/23 Bookmobile Clerk Goal (LTG) Pt will be able to reach into cupboards with minimal to no left shoulder pain. LTG Duration 05/21/23 Two Impairment Lifting difficult Short Term Goal (STG) Pt will be able to lift 15-20 lb boxes with left shoulder pain < = 4/10 afterwards. STG Duration 04/09/23 Long-Term Goal (LTG) Pt will be able to lift 20 lb boxes with minimal to no left shoulder pain. LTG Duration 05/21/23 One Impairment Left cervical rotation limited Short Term Goal (STG) Left cervical rotation will improve by 50 % STG Duration 04/09/23 Bookmobile Clerk Goal (LTG) Left cervical rot. will improve by 100% to WNL. LTG Duration 05/21/23 Assessment Summary Assessment Pt has relief reported w/ manual and was able to improve exercise performance but requried cueing and inc time spent w/thiese exercises. She had improved thoracic and cervical rot b w/manual Physical Therapy Plan Frequency and Duration Frequency of Treatment 1x/Week Duration of treatment (weeks) 12 Plan of Care Start Date 02/26/23 Plan of Care End Date 05/21/23 Next Visit Focus/Plan Next Note Type Treatment Note Next Visit Plan cervical traction Shoulder GHJ mob bilat cervical/shld strength lifting techniques; manual to thoracic girdle
--- NOTE | 2023-04-04 12:28 | PT.OTN ---
Current Diagnoses Pain in right shoulder (04/04/23) Pain in left shoulder (04/04/23) Unspecified rotator cuff tear or rupture of right shoulder, not specified as traumatic (04/04/23) Physical Therapy Treatment Note PT-OP-A Visit Information Start: 02/26/23 11:09 Freq: Status: Active Protocol: Document 04/04/23 11:39 [facility] (Rec: 04/04/23 12:19 [facility] [id number]) Out-Patient Physical Therapy Visit Information Visit Information Visit Type Treatment Note Visit Start Time 11:37 Visit Stop Time 12:22 Total Visit Minutes 45 Visit Number 7 PT-OP-B Current Condition Start: 02/26/23 11:09 Freq: Status: Active Protocol: Document 02/26/23 11:16 TH (Rec: 02/26/23 12:24 TH [id number]) Current Condition History of Current Condition Onset Date 02/2023 History of Current Condition Pt states left shoulder pain is acute on chronic. 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 Pt has been seen here for her right shoulder that has now improved and left has flared up due to increased usage. Prior Functional Status Baseline Function- ADL's Independent Baseline Function- Mobility Independent Current Functional Impairments (Reported) Functional Limitations- ADL's IND though left shoulder pain with reaching and lifting PT-OP-C Subjective Start: 02/26/23 11:09 Freq: Status: Active Protocol: Document 04/04/23 11:39 [facility] (Rec: 04/04/23 12:19 [facility] [id number]) OP-PT Subjective Patient Comments Patient Comments Pt reports she hasn't had to put on voltarin since . PT-OP-K Range of Motion Start: 02/26/23 11:09 Freq: Status: Active Protocol: Document 02/26/23 11:16 TH (Rec: 02/26/23 12:24 TH [id number]) Cervical Spine Range of Motion Cervical Spine Active Comments Flex: WFL hypomobilie ( C5-7) Ext: WFL hypomobile ( C5-7) Rot. R : WNL , Rot. L : limited Shoulder Goniometric Range of Motion Shoulder left Shoulder ROM WFL Yes Comments Flex: WNL Abd: WNL ER: WNL IR: WNL PT-OP-L Special Tests Start: 02/26/23 11:09 Freq: Status: Active Protocol: Document 02/26/23 11:16 TH (Rec: 02/26/23 12:24 TH [id number]) Special Tests Shoulder Special Tests Quick DASH Test Results 29% PT-OP-Q Treatments Start: 02/26/23 11:09 Freq: Status: Active Protocol: Document 04/04/23 11:39 [facility] (Rec: 04/04/23 12:19 [facility] [id number]) Therapeutic Exercises Standing Exercises Wall posture Standing Exercise Name Wall posture w/shoulder ext ater mod pivot prone Equipment Used @wall Reps/Minutes 1 min hold x2 (spent 5 min w/ working on positin &form) Comments inc time to work on postural stability Manual Therapy Treatment Soft Tissue Mobilization pec Body Location B major and minor Mobilization Type Rolling,Sustained Pressure Intensity/Depth Moderate Comments w/rot & abd AAROM post Body Location Rrhomboids & lats Mobilization Type Rolling,Strumming Intensity/Depth Moderate Body Position Sidelying Joint Mobilizations ribs Comments R caudal general w/scap elevation c/r; R rib 5 and 7 caudal FM thoracic Comments PA in cow position w/lean back T5-9 FM PT-OP-R Modalities Start: 02/26/23 11:09 Freq: Status: Active Protocol: Document 04/04/23 11:39 [facility] (Rec: 04/04/23 12:19 [facility] [id number]) Spinal Traction Traction Treatment neck Patient Position Hooklying Force Applied (Pounds) 15 Duration of Treatment (Minutes) 10 Traction Treatment Comment Jose ( cervical traction) PT-OP-T Assessment and Plan Start: 02/26/23 11:09 Freq: Status: Active Protocol: Document 04/04/23 11:39 [facility] (Rec: 04/04/23 12:19 [facility] [id number]) Physical Therapy Assessment Goals Three Impairment Difficulty reaching up/out Short Term Goal (STG) Pt will be able to reach into cupboards with pain < = 4/10. STG Duration 04/09/23 Usp Goal (LTG) Pt will be able to reach into cupboards with minimal to no left shoulder pain. LTG Duration 05/21/23 Two Impairment Lifting difficult Short Term Goal (STG) Pt will be able to lift 15-20 lb boxes with left shoulder pain < = 4/10 afterwards. STG Duration 04/09/23 Usp Goal (LTG) Pt will be able to lift 20 lb boxes with minimal to no left shoulder pain. LTG Duration 05/21/23 One Impairment Left cervical rotation limited Short Term Goal (STG) Left cervical rotation will improve by 50 % STG Duration 04/09/23 Adjunct Sociology Professor Goal (LTG) Left cervical rot. will improve by 100% to WNL. LTG Duration 05/21/23 Assessment Summary Assessment Pt had improvement of R rot from 75% to 95% after manual treatment w/feeling looser. She required a lot of cues w/ wall posture exercise for good form. Improved ability for R scap to get into post dep w/ manaul Physical Therapy Plan Frequency and Duration Frequency of Treatment 1x/Week Duration of treatment (weeks) 12 Plan of Care Start Date 02/26/23 Plan of Care End Date 05/21/23 Next Visit Focus/Plan Next Note Type Treatment Note Next Visit Plan cervical traction manual to thoracic girdle & cranium
--- NOTE | 2023-04-09 14:14 | PT.OTN ---
Current Diagnoses Pain in right shoulder (04/09/23) Pain in left shoulder (04/09/23) Unspecified rotator cuff tear or rupture of right shoulder, not specified as traumatic (04/09/23) Physical Therapy Treatment Note PT-OP-A Visit Information Start: 02/26/23 11:09 Freq: Status: Active Protocol: Document 04/09/23 11:35 [facility] (Rec: 04/09/23 14:14 [facility] [id number]) Out-Patient Physical Therapy Visit Information Visit Information Visit Type Treatment Note Visit Note 06/27 Visit Start Time 11:37 Visit Stop Time 12:22 Total Visit Minutes 45 Visit Number 8 Number of RESTORATIVE REHAB AIDE Visits 0 PT-OP-B Current Condition Start: 02/26/23 11:09 Freq: Status: Active Protocol: Document 02/26/23 11:16 TH (Rec: 02/26/23 12:24 TH [id number]) Current Condition History of Current Condition Onset Date 02/2023 History of Current Condition Pt states left shoulder pain is acute on chronic. 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 Pt has been seen here for her right shoulder that has now improved and left has flared up due to increased usage. Prior Functional Status Baseline Function- ADL's Independent Baseline Function- Mobility Independent Current Functional Impairments (Reported) Functional Limitations- ADL's IND though left shoulder pain with reaching and lifting PT-OP-C Subjective Start: 02/26/23 11:09 Freq: Status: Active Protocol: Document 04/09/23 11:35 [facility] (Rec: 04/09/23 14:14 [facility] [id number]) OP-PT Subjective Patient Comments Patient Comments Pt reports she wasn't as active this weekend. She did have her put some voltaren on. Pt reports she used to have difficulty w/ reaching to the microwave but now she can reach a little further w/less pain. Pt reports she has been working on trying to get shoulders to go back. Pt reports PT-OP-K Range of Motion Start: 02/26/23 11:09 Freq: Status: Active Protocol: Document 02/26/23 11:16 TH (Rec: 02/26/23 12:24 TH [id number]) Cervical Spine Range of Motion Cervical Spine Active Comments Flex: WFL hypomobilie ( C5-7) Ext: WFL hypomobile ( C5-7) Rot. R : WNL , Rot. L : limited Shoulder Goniometric Range of Motion Shoulder left Shoulder ROM WFL Yes Comments Flex: WNL Abd: WNL ER: WNL IR: WNL PT-OP-L Special Tests Start: 02/26/23 11:09 Freq: Status: Active Protocol: Document 02/26/23 11:16 TH (Rec: 02/26/23 12:24 TH [id number]) Special Tests Shoulder Special Tests Quick DASH Test Results 29% PT-OP-Q Treatments Start: 02/26/23 11:09 Freq: Status: Active Protocol: Document 04/09/23 11:35 [facility] (Rec: 04/09/23 14:14 [facility] [id number]) Manual Therapy Treatment Soft Tissue Mobilization cranium Body Location R Mobilization Type Myofascial Release Comments w/shortening and lengthening cervical Body Location SO Mobilization Type Strumming,Sustained Pressure Intensity/Depth Moderate Comments R>L Joint Mobilizations cranium Comments 1. decompression of occiptial bone and zygomatic arch B 2. inf occiital bone R>L FM 4. coronal suture PA FM 5. sagital suture R<>L FM 6. temporoparietal suture inf FM 7. mastoid R AP FM PT-OP-R Modalities Start: 02/26/23 11:09 Freq: Status: Active Protocol: Document 04/09/23 11:35 [facility] (Rec: 04/09/23 14:14 [facility] [id number]) Spinal Traction Traction Treatment neck Patient Position Hooklying Force Applied (Pounds) 15 Duration of Treatment (Minutes) 10 Traction Treatment Comment Jose ( cervical traction) PT-OP-T Assessment and Plan Start: 02/26/23 11:09 Freq: Status: Active Protocol: Document 04/09/23 11:35 [facility] (Rec: 04/09/23 14:14 [facility] [id number]) Physical Therapy Assessment Goals Three Impairment Difficulty reaching up/out Short Term Goal (STG) Pt will be able to reach into cupboards with pain < = 4/10. STG Duration 04/09/23 Appliquer Zigzag Goal (LTG) Pt will be able to reach into cupboards with minimal to no left shoulder pain. LTG Duration 05/21/23 Two Impairment Lifting difficult Short Term Goal (STG) Pt will be able to lift 15-20 lb boxes with left shoulder pain < = 4/10 afterwards. STG Duration 04/09/23 Long-Term Goal (LTG) Pt will be able to lift 20 lb boxes with minimal to no left shoulder pain. LTG Duration 05/21/23 One Impairment Left cervical rotation limited Short Term Goal (STG) Left cervical rotation will improve by 50 % STG Duration 04/09/23 Appliquer Zigzag Goal (LTG) Left cervical rot. will improve by 100% to WNL. LTG Duration 05/21/23 Assessment Summary Assessment Pt had improved ability to lift overhead w/RUE w/o feeling of tightness under arm and had improved R rot from 80% to 95% and L rot from 70% to 80%. She also was able to set her scap and sit in imrpoved posture w/less difficulty w/cranial work. Physical Therapy Plan Frequency and Duration Frequency of Treatment 1x/Week Duration of treatment (weeks) 12 Plan of Care Start Date 02/26/23 Plan of Care End Date 05/21/23 Next Visit Focus/Plan Next Note Type Treatment Note Next Visit Plan cervical traction manual to thoracic girdle & cranium
--- NOTE | 2023-04-17 14:42 | PT.OTN ---
Current Diagnoses Pain in right shoulder (04/17/23) Pain in left shoulder (04/17/23) Unspecified rotator cuff tear or rupture of right shoulder, not specified as traumatic (04/17/23) Physical Therapy Treatment Note PT-OP-A Visit Information Start: 02/26/23 11:09 Freq: Status: Active Protocol: Document 04/17/23 11:38 [facility] (Rec: 04/17/23 14:42 [facility] [id number]) Out-Patient Physical Therapy Visit Information Visit Information Visit Type Treatment Note Visit Note 07/28 Visit Start Time 11:36 Visit Stop Time 12:23 Total Visit Minutes 47 Visit Number 9 Number of SCALE MANAGER Visits 0 PT-OP-B Current Condition Start: 02/26/23 11:09 Freq: Status: Active Protocol: Document 02/26/23 11:16 TH (Rec: 02/26/23 12:24 TH [id number]) Current Condition History of Current Condition Onset Date 02/2023 History of Current Condition Pt states left shoulder pain is acute on chronic. 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 Pt has been seen here for her right shoulder that has now improved and left has flared up due to increased usage. Prior Functional Status Baseline Function- ADL's Independent Baseline Function- Mobility Independent Current Functional Impairments (Reported) Functional Limitations- ADL's IND though left shoulder pain with reaching and lifting PT-OP-C Subjective Start: 02/26/23 11:09 Freq: Status: Active Protocol: Document 04/17/23 11:38 [facility] (Rec: 04/17/23 14:42 [facility] [id number]) OP-PT Subjective Patient Comments Patient Comments Pt reports last week sometime her R felt like it was up again. She was able to relieve it some and R shoulder feels more stiff but did have pick upa lot of bags during volunteer work yesterday. PT-OP-K Range of Motion Start: 02/26/23 11:09 Freq: Status: Active Protocol: Document 02/26/23 11:16 TH (Rec: 02/26/23 12:24 TH [id number]) Cervical Spine Range of Motion Cervical Spine Active Comments Flex: WFL hypomobilie ( C5-7) Ext: WFL hypomobile ( C5-7) Rot. R : WNL , Rot. L : limited Shoulder Goniometric Range of Motion Shoulder left Shoulder ROM WFL Yes Comments Flex: WNL Abd: WNL ER: WNL IR: WNL PT-OP-L Special Tests Start: 02/26/23 11:09 Freq: Status: Active Protocol: Document 02/26/23 11:16 TH (Rec: 02/26/23 12:24 TH [id number]) Special Tests Shoulder Special Tests Quick DASH Test Results 29% PT-OP-Q Treatments Start: 02/26/23 11:09 Freq: Status: Active Protocol: Document 04/17/23 11:38 [facility] (Rec: 04/17/23 14:42 [facility] [id number]) Therapeutic Activity Therapeutic Activity sleep posture Reps/Minutes 12 min Comments CAITLYN and positioning pt for sleep in s/l w/towels and pillows Manual Therapy Treatment Soft Tissue Mobilization ant chest Body Location scar Mobilization Type Myofascial Release Intensity/Depth Superficial Comments w/scap squeeze Joint Mobilizations ribs Comments R caudal general w/breathing and scap elevation c/r; depression R w/R SB FM thoracic Comments transverse L T 7-9 FM Other Other Manual Treatments Pt verbalized consent fro all manual treatmetn Self-Care/Home Management Treatment Education Other Education 5 min: edu re talking to MD re : poor sleep that is not pain related always. Discussed asking about a sleep study and importance of sleep PT-OP-R Modalities Start: 02/26/23 11:09 Freq: Status: Active Protocol: Document 04/17/23 11:38 [facility] (Rec: 04/17/23 14:42 [facility] [id number]) Spinal Traction Traction Treatment neck Patient Position Hooklying Force Applied (Pounds) 16 Duration of Treatment (Minutes) 10 Traction Treatment Comment Jose ( cervical traction) PT-OP-T Assessment and Plan Start: 02/26/23 11:09 Freq: Status: Active Protocol: Document 04/17/23 11:38 [facility] (Rec: 04/17/23 14:42 [facility] [id number]) Physical Therapy Assessment Goals Three Impairment Difficulty reaching up/out Short Term Goal (STG) Pt will be able to reach into cupboards with pain < = 4/10. STG Duration 04/09/23 Protection Officer Goal (LTG) Pt will be able to reach into cupboards with minimal to no left shoulder pain. LTG Duration 05/21/23 Two Impairment Lifting difficult Short Term Goal (STG) Pt will be able to lift 15-20 lb boxes with left shoulder pain < = 4/10 afterwards. STG Duration 04/09/23 Usp Goal (LTG) Pt will be able to lift 20 lb boxes with minimal to no left shoulder pain. LTG Duration 05/21/23 One Impairment Left cervical rotation limited Short Term Goal (STG) Left cervical rotation will improve by 50 % STG Duration 04/09/23 Protection Officer Goal (LTG) Left cervical rot. will improve by 100% to WNL. LTG Duration 05/21/23 Assessment Summary Assessment Pt had improved ability to get scap retraction w/work on scar. This likely prevents her scaps from getting full depression and retraction and the scar tissue pulls her thoracic cage fwd Physical Therapy Plan Frequency and Duration Frequency of Treatment 1x/Week Duration of treatment (weeks) 12 Plan of Care Start Date 02/26/23 Plan of Care End Date 05/21/23 Next Visit Focus/Plan Next Note Type Progress Note Next Visit Plan further scar work in private room;cervical traction manual to thoracic girdle & cranium
--- NOTE | 2023-04-29 15:43 | PT.OTN ---
Current Diagnoses Pain in right shoulder (04/29/23) Pain in left shoulder (04/29/23) Unspecified rotator cuff tear or rupture of right shoulder, not specified as traumatic (04/29/23) Physical Therapy Treatment Note PT-OP-A Visit Information Start: 02/26/23 11:09 Freq: Status: Active Protocol: Document 04/29/23 10:04 [facility] (Rec: 04/29/23 15:43 [facility] [id number]) Out-Patient Physical Therapy Visit Information Visit Information Visit Type Progress Note Visit Note 11/27 Visit Start Time 10:03 Visit Stop Time 10:45 Total Visit Minutes 42 Visit Number 10 Number of UNBUNDLER Visits 0 PT-OP-B Current Condition Start: 02/26/23 11:09 Freq: Status: Active Protocol: Document 02/26/23 11:16 TH (Rec: 02/26/23 12:24 TH [id number]) Current Condition History of Current Condition Onset Date 02/2023 History of Current Condition Pt states left shoulder pain is acute on chronic. 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 Pt has been seen here for her right shoulder that has now improved and left has flared up due to increased usage. Prior Functional Status Baseline Function- ADL's Independent Baseline Function- Mobility Independent Current Functional Impairments (Reported) Functional Limitations- ADL's IND though left shoulder pain with reaching and lifting PT-OP-C Subjective Start: 02/26/23 11:09 Freq: Status: Active Protocol: Document 04/29/23 10:04 [facility] (Rec: 04/29/23 15:43 [facility] [id number]) OP-PT Subjective Patient Comments Patient Comments Pt reports she is a little tight. She has done a lot of lifting volunteering PT-OP-K Range of Motion Start: 02/26/23 11:09 Freq: Status: Active Protocol: Document 04/29/23 10:04 [facility] (Rec: 04/29/23 15:43 [facility] [id number]) Cervical Spine Range of Motion Cervical Spine Active Flexion 50 Extension 55 Rotation Left 70 Rotation Right 75 Lateral Flexion Left 35 Lateral Flexion Right 35 Comments neg VAT Shoulder Goniometric Range of Motion Shoulder left Comments WFL B but pain IR R and some w /overhead PT-OP-L Special Tests Start: 02/26/23 11:09 Freq: Status: Active Protocol: Document 02/26/23 11:16 TH (Rec: 02/26/23 12:24 TH [id number]) Special Tests Shoulder Special Tests Quick DASH Test Results 29% PT-OP-Q Treatments Start: 02/26/23 11:09 Freq: Status: Active Protocol: Document 04/29/23 10:04 [facility] (Rec: 04/29/23 15:43 [facility] [id number]) Manual Therapy Treatment Soft Tissue Mobilization ant chest Body Location scar Mobilization Type Myofascial Release Intensity/Depth Superficial Comments w/scap squeeze , LTR, UE flex PT-OP-R Modalities Start: 02/26/23 11:09 Freq: Status: Active Protocol: Document 04/17/23 11:38 [facility] (Rec: 04/17/23 14:42 [facility] [id number]) Spinal Traction Traction Treatment neck Patient Position Hooklying Force Applied (Pounds) 16 Duration of Treatment (Minutes) 10 Traction Treatment Comment Jose ( cervical traction) PT-OP-T Assessment and Plan Start: 02/26/23 11:09 Freq: Status: Active Protocol: Document 04/29/23 10:04 [facility] (Rec: 04/29/23 15:43 [facility] [id number]) Physical Therapy Assessment Goals Three Impairment Difficulty reaching up/out Short Term Goal (STG) Pt will be able to reach into cupboards with pain < = 4/10. STG Duration achieved Sticker Hand Goal (LTG) Pt will be able to reach into cupboards with minimal to no shoulder pain (B). 04/29-R still sometimes painful LTG Duration 8 Two Impairment Lifting difficult Short Term Goal (STG) Pt will be able to lift 15-20 lb boxes with left shoulder pain < = 4/10 afterwards. 04/29-5/10 L more than R STG Duration 05/18 Intermediate Goal (LTG) Pt will be able to lift 20 lb boxes with minimal to no left shoulder pain. LTG Duration 07/08 One Impairment Left cervical rotation limited Short Term Goal (STG) Left cervical rotation will improve by 50 % STG Duration achieved Sticker Hand Goal (LTG) Left cervical rot. will improve by 100% to WNL. LTG Duration 07/08 Assessment Summary Assessment Pt did well manual treatment and had improved movement of scar tissue after manual treatment. She is making good progress w/PT and inc ROM overall and dec pain while improving posture and functional ability. Cont PT to work on these deficits and progress strength, ROM adn dec pain. Physical Therapy Plan Frequency and Duration Frequency of Treatment 1-2x/wk Duration of treatment (weeks) 10 Plan of Care Start Date 04/29/23 Plan of Care End Date 07/08/23 Therapeutic Interventions Therapeutic Interventions Coordination Training,Home Exercise Program,Joint Mobilizations,Manual Therapy, Neuromuscular Re-education, Orthotic/Prosthetic Management ,Patient/Caregiver Education, Self-Care/Home Management, Sensory Integration,Soft Tissue Mobilization,Taping, Therapeutic Activities, Therapeutic Exercises Modalities Cold Pack/Ice Massage,Electric Stimulation,Hot Packs, Traction- Mechanical, Ultrasound Next Visit Focus/Plan Next Note Type Treatment Note Next Visit Plan work on set position of R shoulder
--- NOTE | 2023-05-13 09:05 | PT.OTN ---
Current Diagnoses Pain in right shoulder (05/13/23) Pain in left shoulder (05/13/23) Unspecified rotator cuff tear or rupture of right shoulder, not specified as traumatic (05/13/23) Physical Therapy Treatment Note PT-OP-A Visit Information Start: 02/26/23 11:09 Freq: Status: Active Protocol: Document 05/13/23 08:20 [facility] (Rec: 05/13/23 09:05 [facility] [id number]) Out-Patient Physical Therapy Visit Information Visit Information Visit Type Treatment Note Visit Note 12/28 Visit Start Time 08:20 Visit Stop Time 09:00 Total Visit Minutes 40 Visit Number 11 Number of REAL ESTATE TEACHER Visits 0 PT-OP-B Current Condition Start: 02/26/23 11:09 Freq: Status: Active Protocol: Document 02/26/23 11:16 TH (Rec: 02/26/23 12:24 TH [id number]) Current Condition History of Current Condition Onset Date 02/2023 History of Current Condition Pt states left shoulder pain is acute on chronic. 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 Pt has been seen here for her right shoulder that has now improved and left has flared up due to increased usage. Prior Functional Status Baseline Function- ADL's Independent Baseline Function- Mobility Independent Current Functional Impairments (Reported) Functional Limitations- ADL's IND though left shoulder pain with reaching and lifting PT-OP-C Subjective Start: 02/26/23 11:09 Freq: Status: Active Protocol: Document 05/13/23 08:20 [facility] (Rec: 05/13/23 09:05 [facility] [id number]) OP-PT Subjective Patient Comments Patient Comments Pt reports she is a little sore in R shoulder area. 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 PT-OP-K Range of Motion Start: 02/26/23 11:09 Freq: Status: Active Protocol: Document 04/29/23 10:04 [facility] (Rec: 04/29/23 15:43 [facility] [id number]) Cervical Spine Range of Motion Cervical Spine Active Flexion 50 Extension 55 Rotation Left 70 Rotation Right 75 Lateral Flexion Left 35 Lateral Flexion Right 35 Comments neg VAT Shoulder Goniometric Range of Motion Shoulder left Comments WFL B but pain IR R and some w /overhead PT-OP-L Special Tests Start: 02/26/23 11:09 Freq: Status: Active Protocol: Document 02/26/23 11:16 TH (Rec: 02/26/23 12:24 TH [id number]) Special Tests Shoulder Special Tests Quick DASH Test Results 29% PT-OP-Q Treatments Start: 02/26/23 11:09 Freq: Status: Active Protocol: Document 05/13/23 08:20 [facility] (Rec: 05/13/23 09:05 [facility] [id number]) Therapeutic Exercises Sitting Exercises ER Sitting Exercise Name Shoulder ER Side bilateral Resistance peach band Reps/Minutes 2x10 Comments cues for head and posture Rows Side bilateral Resistance orange TB Reps/Minutes 15 Comments Tactile cues to facilitate the activation of scapular Horizontal abduction Sitting Exercise Name Horizontal abd w/flex Side bilateral Resistance [place] TB Reps/Minutes 15 Comments in mirror PT-OP-R Modalities Start: 02/26/23 11:09 Freq: Status: Active Protocol: Document 04/17/23 11:38 [facility] (Rec: 04/17/23 14:42 [facility] [id number]) Spinal Traction Traction Treatment neck Patient Position Hooklying Force Applied (Pounds) 16 Duration of Treatment (Minutes) 10 Traction Treatment Comment Jose ( cervical traction) PT-OP-T Assessment and Plan Start: 02/26/23 11:09 Freq: Status: Active Protocol: Document 05/13/23 08:20 [facility] (Rec: 05/13/23 09:05 [facility] [id number]) Physical Therapy Assessment Goals Three Impairment Difficulty reaching up/out Short Term Goal (STG) Pt will be able to reach into cupboards with pain < = 4/10. STG Duration achieved Intermediate Goal (LTG) Pt will be able to reach into cupboards with minimal to no shoulder pain (B). 612-R still sometimes painful LTG Duration 8/ Two Impairment Lifting difficult Short Term Goal (STG) Pt will be able to lift 15-20 lb boxes with left shoulder pain < = 4/10 afterwards. 04/29-5/10 L more than R STG Duration 7/ Intermediate Goal (LTG) Pt will be able to lift 20 lb boxes with minimal to no left shoulder pain. LTG Duration 07/08 One Impairment Left cervical rotation limited Short Term Goal (STG) Left cervical rotation will improve by 50 % STG Duration achieved Assignment Manager Goal (LTG) Left cervical rot. will improve by 100% to WNL. LTG Duration 07/08 Assessment Summary Assessment Pt required ceus throguhout exercsies for posture and form . She had imrpoved RUE flex after manualt reatment and imrpoved post dep. Physical Therapy Plan Frequency and Duration Frequency of Treatment 1-2x/wk Duration of treatment (weeks) 10 Plan of Care Start Date 04/29/23 Plan of Care End Date 07/08/23 Next Visit Focus/Plan Next Note Type Treatment Note Next Visit Plan work on set position of R shoulder
--- NOTE | 2023-05-20 09:53 | PT.OTN ---
Current Diagnoses Pain in right shoulder (05/20/23) Pain in left shoulder (05/20/23) Unspecified rotator cuff tear or rupture of right shoulder, not specified as traumatic (05/20/23) Physical Therapy Treatment Note PT-OP-A Visit Information Start: 02/26/23 11:09 Freq: Status: Active Protocol: Document 05/20/23 08:15 [facility] (Rec: 05/20/23 09:53 [facility] [id number]) Out-Patient Physical Therapy Visit Information Visit Information Visit Type Treatment Note Visit Note 01/25 Visit Start Time 09:05 Visit Stop Time 09:45 Total Visit Minutes 40 Visit Number 12 Number of HAND PACKER/PACKAGER Visits 0 PT-OP-B Current Condition Start: 02/26/23 11:09 Freq: Status: Active Protocol: Document 02/26/23 11:16 TH (Rec: 02/26/23 12:24 TH [id number]) Current Condition History of Current Condition Onset Date 02/2023 History of Current Condition Pt states left shoulder pain is acute on chronic. 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 Pt has been seen here for her right shoulder that has now improved and left has flared up due to increased usage. Prior Functional Status Baseline Function- ADL's Independent Baseline Function- Mobility Independent Current Functional Impairments (Reported) Functional Limitations- ADL's IND though left shoulder pain with reaching and lifting PT-OP-C Subjective Start: 02/26/23 11:09 Freq: Status: Active Protocol: Document 05/20/23 08:15 [facility] (Rec: 05/20/23 09:53 [facility] [id number]) OP-PT Subjective Patient Comments Patient Comments Pt reports she has been working on the strength training PT-OP-K Range of Motion Start: 02/26/23 11:09 Freq: Status: Active Protocol: Document 04/29/23 10:04 [facility] (Rec: 04/29/23 15:43 [facility] [id number]) Cervical Spine Range of Motion Cervical Spine Active Flexion 50 Extension 55 Rotation Left 70 Rotation Right 75 Lateral Flexion Left 35 Lateral Flexion Right 35 Comments neg VAT Shoulder Goniometric Range of Motion Shoulder left Comments WFL B but pain IR R and some w /overhead PT-OP-L Special Tests Start: 02/26/23 11:09 Freq: Status: Active Protocol: Document 02/26/23 11:16 TH (Rec: 02/26/23 12:24 TH [id number]) Special Tests Shoulder Special Tests Quick DASH Test Results 29% PT-OP-Q Treatments Start: 02/26/23 11:09 Freq: Status: Active Protocol: Document 05/20/23 08:15 [facility] (Rec: 05/20/23 09:53 [facility] [id number]) Therapeutic Exercises Sitting Exercises ER Sitting Exercise Name Shoulder ER-changed to supine as pt feels it is easier to maintain form Side bilateral Resistance peach band Reps/Minutes 2x10 Comments cues for head and posture Rows Side bilateral Resistance [place] band Reps/Minutes 2x10 Comments cues for posture and position Horizontal abduction Sitting Exercise Name Horizontal abd w/flex Side bilateral Resistance [place] TB Reps/Minutes 15 Comments in mirror Manual Therapy Treatment Soft Tissue Mobilization pec Body Location R pec minor and major Mobilization Type Rolling,Sustained Pressure Comments w/ER shoulder Joint Mobilizations GH Joint R post FM SC Joint R distraction FM ribs Comments costocondral distraction R FM caudal rib 2 and 3 ant FM caudal rib 8 FM post thoracic Comments transverse L T5-8 FM s/l PT-OP-R Modalities Start: 02/26/23 11:09 Freq: Status: Active Protocol: Document 04/17/23 11:38 [facility] (Rec: 04/17/23 14:42 [facility] [id number]) Spinal Traction Traction Treatment neck Patient Position Hooklying Force Applied (Pounds) 16 Duration of Treatment (Minutes) 10 Traction Treatment Comment Jose ( cervical traction) PT-OP-T Assessment and Plan Start: 02/26/23 11:09 Freq: Status: Active Protocol: Document 05/20/23 08:15 [facility] (Rec: 05/20/23 09:53 [facility] [id number]) Physical Therapy Assessment Goals Three Impairment Difficulty reaching up/out Short Term Goal (STG) Pt will be able to reach into cupboards with pain < = 4/10. STG Duration achieved Senior Audit Manager Goal (LTG) Pt will be able to reach into cupboards with minimal to no shoulder pain (B). 6/12-R still sometimes painful LTG Duration 8/10 Two Impairment Lifting difficult Short Term Goal (STG) Pt will be able to lift 15-20 lb boxes with left shoulder pain < = 4/10 afterwards. 6/12-5/10 L more than R STG Duration 05/18 Group Home Goal (LTG) Pt will be able to lift 20 lb boxes with minimal to no left shoulder pain. LTG Duration 07/08 One Impairment Left cervical rotation limited Short Term Goal (STG) Left cervical rotation will improve by 50 % STG Duration achieved Senior Audit Manager Goal (LTG) Left cervical rot. will improve by 100% to WNL. LTG Duration 07/08 Assessment Summary Assessment Pt did well with strengthening w/cueing.S he is self correcting on posture but does require more cues form and position.S he had improved scap dep after manual. Physical Therapy Plan Frequency and Duration Frequency of Treatment 1-2x/wk Duration of treatment (weeks) 10 Plan of Care Start Date 04/29/23 Plan of Care End Date 07/08/23 Next Visit Focus/Plan Next Note Type Treatment Note Next Visit Plan work on set position of R shoulder
--- NOTE | 2023-05-23 10:53 | PT.OTN ---
Current Diagnoses Pain in right shoulder (05/23/23) Pain in left shoulder (05/23/23) Unspecified rotator cuff tear or rupture of right shoulder, not specified as traumatic (05/23/23) Physical Therapy Treatment Note PT-OP-A Visit Information Start: 02/26/23 11:09 Freq: Status: Active Protocol: Document 05/23/23 08:19 [facility] (Rec: 05/23/23 10:53 [facility] [id number]) Out-Patient Physical Therapy Visit Information Visit Information Visit Type Treatment Note Visit Note 02/25 Student PT Halina Hanley participated in treatment session w/PT direct supervision Visit Start Time 08:19 Visit Stop Time 09:00 Total Visit Minutes 41 Visit Number 13 Number of COAL HANDLING SUPERVISOR Visits 0 PT-OP-B Current Condition Start: 02/26/23 11:09 Freq: Status: Active Protocol: Document 02/26/23 11:16 TH (Rec: 02/26/23 12:24 TH [id number]) Current Condition History of Current Condition Onset Date 02/2023 History of Current Condition Pt states left shoulder pain is acute on chronic. 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 Pt has been seen here for her right shoulder that has now improved and left has flared up due to increased usage. Prior Functional Status Baseline Function- ADL's Independent Baseline Function- Mobility Independent Current Functional Impairments (Reported) Functional Limitations- ADL's IND though left shoulder pain with reaching and lifting PT-OP-C Subjective Start: 02/26/23 11:09 Freq: Status: Active Protocol: Document 05/23/23 08:19 [facility] (Rec: 05/23/23 10:53 [facility] [id number]) OP-PT Subjective Patient Comments Patient Comments Pt reports she went to reach overhead to the microwave w/ RUE and was excited because it felt okay. Patient Reported Progress Improving PT-OP-K Range of Motion Start: 02/26/23 11:09 Freq: Status: Active Protocol: Document 04/29/23 10:04 [facility] (Rec: 04/29/23 15:43 [facility] [id number]) Cervical Spine Range of Motion Cervical Spine Active Flexion 50 Extension 55 Rotation Left 70 Rotation Right 75 Lateral Flexion Left 35 Lateral Flexion Right 35 Comments neg VAT Shoulder Goniometric Range of Motion Shoulder left Comments WFL B but pain IR R and some w /overhead PT-OP-L Special Tests Start: 02/26/23 11:09 Freq: Status: Active Protocol: Document 02/26/23 11:16 TH (Rec: 02/26/23 12:24 TH [id number]) Special Tests Shoulder Special Tests Quick DASH Test Results 29% PT-OP-Q Treatments Start: 02/26/23 11:09 Freq: Status: Active Protocol: Document 05/23/23 08:19 [facility] (Rec: 05/23/23 10:53 [facility] [id number]) Manual Therapy Treatment Soft Tissue Mobilization post Mobilization Type Rolling,Strumming Comments btwn ribs 6-7 R & R lats Joint Mobilizations ribs Comments R SB ribs 4-11 FM for R L SB ribs 5-7 FM L thoracic Comments T6-L2 transverse L for R cervical rotation PT-OP-R Modalities Start: 02/26/23 11:09 Freq: Status: Active Protocol: Document 04/17/23 11:38 [facility] (Rec: 04/17/23 14:42 [facility] [id number]) Spinal Traction Traction Treatment neck Patient Position Hooklying Force Applied (Pounds) 16 Duration of Treatment (Minutes) 10 Traction Treatment Comment Garcia ( cervical traction) PT-OP-T Assessment and Plan Start: 02/26/23 11:09 Freq: Status: Active Protocol: Document 05/23/23 08:19 [facility] (Rec: 05/23/23 10:53 [facility] [id number]) Physical Therapy Assessment Goals Three Impairment Difficulty reaching up/out Short Term Goal (STG) Pt will be able to reach into cupboards with pain < = 4/10. STG Duration achieved Snf Goal (LTG) Pt will be able to reach into cupboards with minimal to no shoulder pain (B). 6/12-R still sometimes painful LTG Duration 8/ Two Impairment Lifting difficult Short Term Goal (STG) Pt will be able to lift 15-20 lb boxes with left shoulder pain < = 4/10 afterwards. 6/12-5/10 L more than R STG Duration 7 Snf Goal (LTG) Pt will be able to lift 20 lb boxes with minimal to no left shoulder pain. LTG Duration 07/08 One Impairment Left cervical rotation limited Short Term Goal (STG) Left cervical rotation will improve by 50 % STG Duration achieved Snf Goal (LTG) Left cervical rot. will improve by 100% to WNL. LTG Duration 07/08 Assessment Summary Assessment Pt was able to improve ROM of R shoulder w/even further flex w/less discomfort after manaul. Improved cervical and thoracic rotation along w/B trunk SB w/manual. Physical Therapy Plan Frequency and Duration Frequency of Treatment 1-2x/wk Duration of treatment (weeks) 10 Plan of Care Start Date 04/29/23 Plan of Care End Date 07/08/23 Next Visit Focus/Plan Next Note Type Treatment Note Next Visit Plan work on set position of R shoulder and work on overhead motion including GH
--- NOTE | 2023-05-27 13:08 | PT.OTN ---
Current Diagnoses Pain in right shoulder (05/27/23) Pain in left shoulder (05/27/23) Unspecified rotator cuff tear or rupture of right shoulder, not specified as traumatic (05/27/23) Physical Therapy Treatment Note PT-OP-A Visit Information Start: 02/26/23 11:09 Freq: Status: Active Protocol: Document 05/27/23 10:48 [facility] (Rec: 05/27/23 13:08 [facility] [id number]) Out-Patient Physical Therapy Visit Information Visit Information Visit Type Treatment Note Visit Note 03/27 Visit Start Time 10:48 Visit Stop Time 11:30 Total Visit Minutes 42 Visit Number 14 Number of ANIMATED CARTOONS PAINTER Visits 0 PT-OP-B Current Condition Start: 02/26/23 11:09 Freq: Status: Active Protocol: Document 02/26/23 11:16 TH (Rec: 02/26/23 12:24 TH [id number]) Current Condition History of Current Condition Onset Date 02/2023 History of Current Condition Pt states left shoulder pain is acute on chronic. 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 Pt has been seen here for her right shoulder that has now improved and left has flared up due to increased usage. Prior Functional Status Baseline Function- ADL's Independent Baseline Function- Mobility Independent Current Functional Impairments (Reported) Functional Limitations- ADL's IND though left shoulder pain with reaching and lifting PT-OP-C Subjective Start: 02/26/23 11:09 Freq: Status: Active Protocol: Document 05/27/23 10:48 [facility] (Rec: 05/27/23 13:08 [facility] [id number]) OP-PT Subjective Patient Comments Patient Comments Pt reports L shoulder is a little sore. She was movign her mattress around yesterday. S he has been trying some different toppers. She also noticed she can lay on her R on the air mattress. She feels like her reaching overhead is better Patient Reported Progress Improving PT-OP-K Range of Motion Start: 02/26/23 11:09 Freq: Status: Active Protocol: Document 04/29/23 10:04 [facility] (Rec: 04/29/23 15:43 [facility] [id number]) Cervical Spine Range of Motion Cervical Spine Active Flexion 50 Extension 55 Rotation Left 70 Rotation Right 75 Lateral Flexion Left 35 Lateral Flexion Right 35 Comments neg VAT Shoulder Goniometric Range of Motion Shoulder left Comments WFL B but pain IR R and some w /overhead PT-OP-L Special Tests Start: 02/26/23 11:09 Freq: Status: Active Protocol: Document 02/26/23 11:16 TH (Rec: 02/26/23 12:24 TH [id number]) Special Tests Shoulder Special Tests Quick DASH Test Results 29% PT-OP-Q Treatments Start: 02/26/23 11:09 Freq: Status: Active Protocol: Document 05/27/23 10:48 [facility] (Rec: 05/27/23 13:08 [facility] [id number]) Manual Therapy Treatment Soft Tissue Mobilization pec Body Location R pec minor and major Mobilization Type Rolling,Sustained Pressure Comments w/ER shoulder post Comments R shoulder circumfrential FM & lat strumming Joint Mobilizations AC Joint R clavicle ant FM overhead motion GH Comments R post glide& translation, inf glide and translation, lat gapping & IR FM wfacilitation at end ragnes SC Joint R AP FM Neuro Re-Education Treatment Other Activities PNF Details R post dep Reps/Duration 9 min Comments 1. rhythmic initiation 2. sustained hold w/irradiaion from R pivot prone (mult reps ) 3. sustained hold just scap pattern (mult reps ) pt fatigues easily PT-OP-R Modalities Start: 02/26/23 11:09 Freq: Status: Active Protocol: Document 04/17/23 11:38 [facility] (Rec: 04/17/23 14:42 [facility] [id number]) Spinal Traction Traction Treatment neck Patient Position Hooklying Force Applied (Pounds) 16 Duration of Treatment (Minutes) 10 Traction Treatment Comment Jose ( cervical traction) PT-OP-T Assessment and Plan Start: 02/26/23 11:09 Freq: Status: Active Protocol: Document 05/27/23 10:48 [facility] (Rec: 05/27/23 13:08 [facility] [id number]) Physical Therapy Assessment Goals Three Impairment Difficulty reaching up/out Short Term Goal (STG) Pt will be able to reach into cupboards with pain < = 4/10. STG Duration achieved Rrt Goal (LTG) Pt will be able to reach into cupboards with minimal to no shoulder pain (B). 6/12-R still sometimes painful LTG Duration 8/10 Two Impairment Lifting difficult Short Term Goal (STG) Pt will be able to lift 15-20 lb boxes with left shoulder pain < = 4/10 afterwards. 04/29-5/10 L more than R STG Duration 05/18 Senior Care Goal (LTG) Pt will be able to lift 20 lb boxes with minimal to no left shoulder pain. LTG Duration 07/08 One Impairment Left cervical rotation limited Short Term Goal (STG) Left cervical rotation will improve by 50 % STG Duration achieved Rrt Goal (LTG) Left cervical rot. will improve by 100% to WNL. LTG Duration 07/08 Assessment Summary Assessment Pt showed improved overhead motion after manual treatment w/less discomfort. She cont to have altered mechanics but is improving significantly. She does show dec scap stability on R side which likely affects her ability to do overhead motion w/o inc pain. L shoulder does still show deficits also. Physical Therapy Plan Frequency and Duration Frequency of Treatment 1-2x/wk Duration of treatment (weeks) 10 Plan of Care Start Date 04/29/23 Plan of Care End Date 07/08/23 Next Visit Focus/Plan Next Note Type Treatment Note Next Visit Plan cont tow rok PNF R shoulder, work L shoulder mechanics
--- NOTE | 2023-06-12 13:12 | PT.OTN ---
Current Diagnoses Pain in right shoulder (06/12/23) Pain in left shoulder (06/12/23) Unspecified rotator cuff tear or rupture of right shoulder, not specified as traumatic (06/12/23) Physical Therapy Treatment Note PT-OP-A Visit Information Start: 02/26/23 11:09 Freq: Status: Active Protocol: Document 06/12/23 08:27 [facility] (Rec: 06/12/23 13:12 [facility] [id number]) Out-Patient Physical Therapy Visit Information Visit Information Visit Type Treatment Note Visit Note 04/27 Visit Start Time 08:20 Visit Stop Time 09:02 Total Visit Minutes 42 Visit Number 15 Number of PROPERTY PORTFOLIO OFFICER Visits 0 PT-OP-B Current Condition Start: 02/26/23 11:09 Freq: Status: Active Protocol: Document 02/26/23 11:16 TH (Rec: 02/26/23 12:24 TH [id number]) Current Condition History of Current Condition Onset Date 02/2023 History of Current Condition Pt states left shoulder pain is acute on chronic. 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 Pt has been seen here for her right shoulder that has now improved and left has flared up due to increased usage. Prior Functional Status Baseline Function- ADL's Independent Baseline Function- Mobility Independent Current Functional Impairments (Reported) Functional Limitations- ADL's IND though left shoulder pain with reaching and lifting PT-OP-C Subjective Start: 02/26/23 11:09 Freq: Status: Active Protocol: Document 06/12/23 08:27 [facility] (Rec: 06/12/23 13:12 [facility] [id number]) OP-PT Subjective Patient Comments Patient Comments Pt report she is noticing better ability to reach overhead. PT-OP-K Range of Motion Start: 02/26/23 11:09 Freq: Status: Active Protocol: Document 04/29/23 10:04 [facility] (Rec: 04/29/23 15:43 [facility] [id number]) Cervical Spine Range of Motion Cervical Spine Active Flexion 50 Extension 55 Rotation Left 70 Rotation Right 75 Lateral Flexion Left 35 Lateral Flexion Right 35 Comments neg VAT Shoulder Goniometric Range of Motion Shoulder left Comments WFL B but pain IR R and some w /overhead PT-OP-L Special Tests Start: 02/26/23 11:09 Freq: Status: Active Protocol: Document 02/26/23 11:16 TH (Rec: 02/26/23 12:24 TH [id number]) Special Tests Shoulder Special Tests Quick DASH Test Results 29% PT-OP-Q Treatments Start: 02/26/23 11:09 Freq: Status: Active Protocol: Document 06/12/23 08:27 [facility] (Rec: 06/12/23 13:12 [facility] [id number]) Manual Therapy Treatment Soft Tissue Mobilization post Body Location R rhomboids Mobilization Type Rolling,Strumming cervical Body Location B UT Mobilization Type Strumming,Sustained Pressure Comments w/rot cervical Joint Mobilizations GH Comments R IR FM thoracic Comments UPA R T2-7 FM seated fwd lean Self-Care/Home Management Treatment Education Other Education 11 min: discussed w/pt DC next session and some verbal review of exercises. Edu to pt w/use of theracane w/spending about 5 min on use of this PT-OP-R Modalities Start: 02/26/23 11:09 Freq: Status: Active Protocol: Document 04/17/23 11:38 [facility] (Rec: 04/17/23 14:42 [facility] [id number]) Spinal Traction Traction Treatment neck Patient Position Hooklying Force Applied (Pounds) 16 Duration of Treatment (Minutes) 10 Traction Treatment Comment Jose ( cervical traction) PT-OP-T Assessment and Plan Start: 02/26/23 11:09 Freq: Status: Active Protocol: Document 06/12/23 08:27 [facility] (Rec: 06/12/23 13:12 [facility] [id number]) Physical Therapy Assessment Goals Three Impairment Difficulty reaching up/out Short Term Goal (STG) Pt will be able to reach into cupboards with pain < = 4/10. STG Duration achieved Detention Goal (LTG) Pt will be able to reach into cupboards with minimal to no shoulder pain (B). 04/29-R still sometimes painful LTG Duration 8/ Two Impairment Lifting difficult Short Term Goal (STG) Pt will be able to lift 15-20 lb boxes with left shoulder pain < = 4/10 afterwards. 04/29-5/10 L more than R STG Duration 7/ Carpenter Inspector Goal (LTG) Pt will be able to lift 20 lb boxes with minimal to no left shoulder pain. LTG Duration 07/08 One Impairment Left cervical rotation limited Short Term Goal (STG) Left cervical rotation will improve by 50 % STG Duration achieved Carpenter Inspector Goal (LTG) Left cervical rot. will improve by 100% to WNL. LTG Duration 07/08 Assessment Summary Assessment Pt is having much greater ease w/overhead motiona nd has mild limitation w/overhead motion. She had some limits in tspine and GH region that imrpoved w/manual that improved shoulder ROM. Physical Therapy Plan Frequency and Duration Frequency of Treatment 1-2x/wk Duration of treatment (weeks) 10 Plan of Care Start Date 04/29/23 Plan of Care End Date 07/08/23 Next Visit Focus/Plan Next Note Type Discharge Summary Next Visit Plan review HEP and prep for DC
--- NOTE | 2023-06-17 11:08 | PT.OTN ---
Current Diagnoses Pain in right shoulder (06/17/23) Pain in left shoulder (06/17/23) Unspecified rotator cuff tear or rupture of right shoulder, not specified as traumatic (06/17/23) Physical Therapy Treatment Note PT-OP-A Visit Information Start: 02/26/23 11:09 Freq: Status: Active Protocol: Document 06/17/23 10:06 [facility] (Rec: 06/17/23 11:08 [facility] [id number]) Out-Patient Physical Therapy Visit Information Visit Information Visit Type Treatment Note Visit Note 05/27 Visit Start Time 10:04 Visit Stop Time 10:45 Total Visit Minutes 41 Visit Number 16 Number of TRANSITION MGR RN Visits 0 PT-OP-B Current Condition Start: 02/26/23 11:09 Freq: Status: Active Protocol: Document 02/26/23 11:16 TH (Rec: 02/26/23 12:24 TH [id number]) Current Condition History of Current Condition Onset Date 02/2023 History of Current Condition Pt states left shoulder pain is acute on chronic. 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 Pt has been seen here for her right shoulder that has now improved and left has flared up due to increased usage. Prior Functional Status Baseline Function- ADL's Independent Baseline Function- Mobility Independent Current Functional Impairments (Reported) Functional Limitations- ADL's IND though left shoulder pain with reaching and lifting PT-OP-C Subjective Start: 02/26/23 11:09 Freq: Status: Active Protocol: Document 06/17/23 10:06 [facility] (Rec: 06/17/23 11:08 [facility] [id number]) OP-PT Subjective Patient Comments Patient Comments Pt reports she played some badmitton and notices getting catches every now and then in her brachium. She notices some catches in RUE w/badmitton. She also held the baby a lot in LUE. Patient Reported Progress Improving PT-OP-K Range of Motion Start: 02/26/23 11:09 Freq: Status: Active Protocol: Document 04/29/23 10:04 [facility] (Rec: 04/29/23 15:43 [facility] [id number]) Cervical Spine Range of Motion Cervical Spine Active Flexion 50 Extension 55 Rotation Left 70 Rotation Right 75 Lateral Flexion Left 35 Lateral Flexion Right 35 Comments neg VAT Shoulder Goniometric Range of Motion Shoulder left Comments WFL B but pain IR R and some w /overhead PT-OP-L Special Tests Start: 02/26/23 11:09 Freq: Status: Active Protocol: Document 02/26/23 11:16 TH (Rec: 02/26/23 12:24 TH [id number]) Special Tests Shoulder Special Tests Quick DASH Test Results 29% PT-OP-Q Treatments Start: 02/26/23 11:09 Freq: Status: Active Protocol: Document 06/17/23 10:06 [facility] (Rec: 06/17/23 11:08 [facility] [id number]) Therapeutic Exercises Supine Exercises axial elongation Supine Exercise Name chin tuck and hold w/hand slide out from under head Reps/Minutes 5 sec x6 HABd Supine Exercise Name w/flex Side bilateral Equipment Used orange band Reps/Minutes 15 Sitting Exercises stretch Sitting Exercise Name UT Side bilateral Reps/Minutes 30 sec ea Rows Side bilateral Resistance blue band Reps/Minutes 15 Comments cues for posture and scap retract w/o elevation Manual Therapy Treatment Soft Tissue Mobilization pec Body Location R pec minor and major Mobilization Type Rolling,Sustained Pressure Comments w/shoulder overhead motiion post Body Location R circumfrential shoulder Mobilization Type Rolling,Strumming Comments w/overhead motion Joint Mobilizations AC Joint R clavicle ant FM overhead motion GH Comments R end range inf FM Neuro Re-Education Treatment Other Activities PNF Reps/Duration 8 min Comments 1. w/dowel B patterns D1 and D2 resisted and reciprocal patterns PT-OP-R Modalities Start: 02/26/23 11:09 Freq: Status: Active Protocol: Document 04/17/23 11:38 [facility] (Rec: 04/17/23 14:42 [facility] [id number]) Spinal Traction Traction Treatment neck Patient Position Hooklying Force Applied (Pounds) 16 Duration of Treatment (Minutes) 10 Traction Treatment Comment Joes ( cervical traction) PT-OP-T Assessment and Plan Start: 02/26/23 11:09 Freq: Status: Active Protocol: Document 06/17/23 10:06 [facility] (Rec: 06/17/23 11:08 [facility] [id number]) Physical Therapy Assessment Goals Three Impairment Difficulty reaching up/out Short Term Goal (STG) Pt will be able to reach into cupboards with pain < = 4/10. STG Duration achieved Long-Term Goal (LTG) Pt will be able to reach into cupboards with minimal to no shoulder pain (B). 04/29-R still sometimes painful LTG Duration 06/27 Two Impairment Lifting difficult Short Term Goal (STG) Pt will be able to lift 15-20 lb boxes with left shoulder pain < = 4/10 afterwards. 04/29-/ L more than R STG Duration 05/18 Window Glazier Helper Goal (LTG) Pt will be able to lift 20 lb boxes with minimal to no left shoulder pain. LTG Duration 07/08 One Impairment Left cervical rotation limited Short Term Goal (STG) Left cervical rotation will improve by 50 % STG Duration achieved Window Glazier Helper Goal (LTG) Left cervical rot. will improve by 100% to WNL. LTG Duration 07/08 Assessment Summary Assessment Pt had improved RUE overhead motion w/manual treatment.She did well w/neuro re edu to improve control w/overhead motions. Does well with HEP w/ min cues w/most exercsies. Progressed some exercises Physical Therapy Plan Frequency and Duration Frequency of Treatment 1-2x/wk Duration of treatment (weeks) 10 Plan of Care Start Date 04/29/23 Plan of Care End Date 07/08/23 Next Visit Focus/Plan Next Note Type Discharge Summary Next Visit Plan review HEP and prep for DC
--- NOTE | 2023-07-03 10:47 | PT.OTN ---
Current Diagnoses Pain in right shoulder (07/03/23) Pain in left shoulder (07/03/23) Unspecified rotator cuff tear or rupture of right shoulder, not specified as traumatic (07/03/23) Physical Therapy Treatment Note PT-OP-A Visit Information Start: 02/26/23 11:09 Freq: Status: Active Protocol: Document 07/03/23 10:04 [facility] (Rec: 07/03/23 10:47 [facility] [id number]) Out-Patient Physical Therapy Visit Information Visit Information Visit Type Discharge Summary Visit Start Time 10:01 Visit Stop Time 10:39 Total Visit Minutes 38 Visit Number 17 Number of [employer] Visits 0 PT-OP-B Current Condition Start: 02/26/23 11:09 Freq: Status: Active Protocol: Document 02/26/23 11:16 TH (Rec: 02/26/23 12:24 TH [id number]) Current Condition History of Current Condition Onset Date 02/2023 History of Current Condition Pt states left shoulder pain is acute on chronic. 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 Pt has been seen here for her right shoulder that has now improved and left has flared up due to increased usage. Prior Functional Status Baseline Function- ADL's Independent Baseline Function- Mobility Independent Current Functional Impairments (Reported) Functional Limitations- ADL's IND though left shoulder pain with reaching and lifting PT-OP-C Subjective Start: 02/26/23 11:09 Freq: Status: Active Protocol: Document 07/03/23 10:04 [facility] (Rec: 07/03/23 10:47 [facility] [id number]) OP-PT Subjective Patient Comments Patient Comments Pt reports after last time, she felt like she could feel more movement in her back. She got a theracane at home and loves it. Pt reports she got up and her knee gave out and did fall and hit her nose and chin. Pt notes she had trouble remembering what happened eralier that day but doesn't have issues w/memory now or dizziness or lightheadness Patient Reported Progress Improving PT-OP-K Range of Motion Start: 02/26/23 11:09 Freq: Status: Active Protocol: Document 07/03/23 10:04 [facility] (Rec: 07/03/23 10:47 [facility] [id number]) Cervical Spine Range of Motion Cervical Spine Active Flexion 74 Extension 66 Rotation Left 72 Rotation Right 75 Lateral Flexion Left 50 Lateral Flexion Right 46 PT-OP-L Special Tests Start: 02/26/23 11:09 Freq: Status: Active Protocol: Document 02/26/23 11:16 TH (Rec: 02/26/23 12:24 TH [id number]) Special Tests Shoulder Special Tests Quick DASH Test Results 29% PT-OP-Q Treatments Start: 02/26/23 11:09 Freq: Status: Active Protocol: Document 07/03/23 10:04 [facility] (Rec: 07/03/23 10:47 [facility] [id number]) Therapeutic Exercises Supine Exercises axial elongation Supine Exercise Name chin tuck and hold w/hand slide out from under head Reps/Minutes 5 sec x10 Sidelying Exercises open book Side bilateral Reps/Minutes 3 Sitting Exercises Cervical isometric Sitting Exercise Name w/band too difficult for form Equipment Used orange band Reps/Minutes 5 Cervical stretches Sitting Exercise Name UT and LS Side bilateral Reps/Minutes 10 sec x2 ea Scapular Retraction Sitting Exercise Name Habd Side bilateral Reps/Minutes 15 ER Sitting Exercise Name min cues Side bilateral Resistance orange band Reps/Minutes x10 Comments cues for head and posture Horizontal abduction Sitting Exercise Name Horizontal abd w/flex Side bilateral Resistance oranges TB Reps/Minutes 10 Comments in mirror Standing Exercises Wall posture Standing Exercise Name Wall posture w/shoulder ext ater mod pivot prone Equipment Used @wall Reps/Minutes 4 min total Comments inc time to work on postural stability Self-Care/Home Management Treatment Education Other Education 15 min: discussion of progrss and if pt has any concerns for DC. Pt feeling good and has less concerns. edu on use of theracane for neck, back and shoulders. quick verbal review on improtance of exercieses PT-OP-R Modalities Start: 02/26/23 11:09 Freq: Status: Active Protocol: Document 04/17/23 11:38 [facility] (Rec: 04/17/23 14:42 [facility] [id number]) Spinal Traction Traction Treatment neck Patient Position Hooklying Force Applied (Pounds) 16 Duration of Treatment (Minutes) 10 Traction Treatment Comment Jose ( cervical traction) PT-OP-T Assessment and Plan Start: 02/26/23 11:09 Freq: Status: Active Protocol: Document 07/03/23 10:04 [facility] (Rec: 07/03/23 10:47 [facility] [id number]) Physical Therapy Assessment Goals Three Impairment Difficulty reaching up/out Short Term Goal (STG) Pt will be able to reach into cupboards with pain < = 4/10. STG Duration achieved Statistical Reporting Analyst Goal (LTG) Pt will be able to reach into cupboards with minimal to no shoulder pain (B). 04/29-R still sometimes painful LTG Duration achieved Two Impairment Lifting difficult Short Term Goal (STG) Pt will be able to lift 15-20 lb boxes with left shoulder pain < = 4/10 afterwards. 04/29-/10 L more than R STG Duration achieved Statistical Reporting Analyst Goal (LTG) Pt will be able to lift 20 lb boxes with minimal to no left shoulder pain. LTG Duration achieved w/min soreness One Impairment Left cervical rotation limited Short Term Goal (STG) Left cervical rotation will improve by 50 % STG Duration achieved Statistical Reporting Analyst Goal (LTG) Left cervical rot. will improve by 100% to WNL. LTG Duration achieved Assessment Summary Assessment Pt has made excellent progress with PT and has met all goals and B shoulders and neck are feeling much better. She did well with exercises w/min cues needed. Pt DC at this time to [facility]. Physical Therapy Plan Discharge Physical Therapy Discharge Reasons Goals Met
--- NOTE | 2023-07-03 10:47 | PT.OPDS ---
Current Diagnoses Pain in right shoulder (07/03/23) Pain in left shoulder (07/03/23) Unspecified rotator cuff tear or rupture of right shoulder, not specified as traumatic (07/03/23) Visit Care Team Role Provider Type Jose Brito MD Attending Provider Physician Family Provider Primary Care Provider Referring Provider Specialty: Internal Medicine Address: [address] [place] [address], [facility] Email: [email or web address] Visit Number Visit Number 17 Discharge Summary PT-OP-B Current Condition Start: 02/26/23 11:09 Freq: Status: Active Protocol: Document 02/26/23 11:16 TH (Rec: 02/26/23 12:24 TH [id number]) Current Condition History of Current Condition Onset Date 02/2023 History of Current Condition Pt states left shoulder pain is acute on chronic. 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 Pt has been seen here for her right shoulder that has now improved and left has flared up due to increased usage. Prior Functional Status Baseline Function- ADL's Independent Baseline Function- Mobility Independent Current Functional Impairments (Reported) Functional Limitations- ADL's IND though left shoulder pain with reaching and lifting PT-OP-C Subjective Start: 02/26/23 11:09 Freq: Status: Active Protocol: Document 07/03/23 10:04 [facility] (Rec: 07/03/23 10:47 [facility] [id number]) OP-PT Subjective Patient Comments Patient Comments Pt reports after last time, she felt like she could feel more movement in her back. She got a theracane at home and loves it. Pt reports she got up and her knee gave out and did fall and hit her nose and chin. Pt notes she had trouble remembering what happened eralier that day but doesn't have issues w/memory now or dizziness or lightheadness Patient Reported Progress Improving PT-OP-K Range of Motion Start: 02/26/23 11:09 Freq: Status: Active Protocol: Document 07/03/23 10:04 [facility] (Rec: 07/03/23 10:47 [facility] [id number]) Cervical Spine Range of Motion Cervical Spine Active Flexion 74 Extension 66 Rotation Left 72 Rotation Right 75 Lateral Flexion Left 50 Lateral Flexion Right 46 PT-OP-L Special Tests Start: 02/26/23 11:09 Freq: Status: Active Protocol: Document 02/26/23 11:16 TH (Rec: 02/26/23 12:24 TH [id number]) Special Tests Shoulder Special Tests Quick DASH Test Results 29% PT-OP-T Assessment and Plan Start: 02/26/23 11:09 Freq: Status: Active Protocol: Document 07/03/23 10:04 [facility] (Rec: 07/03/23 10:47 [facility] [id number]) Physical Therapy Assessment Goals Three Impairment Difficulty reaching up/out Short Term Goal (STG) Pt will be able to reach into cupboards with pain < = 4/10. STG Duration achieved Object Oriented Programmer Goal (LTG) Pt will be able to reach into cupboards with minimal to no shoulder pain (B). 04/29-R still sometimes painful LTG Duration achieved Two Impairment Lifting difficult Short Term Goal (STG) Pt will be able to lift 15-20 lb boxes with left shoulder pain < = 4/10 afterwards. 04/29-5/10 L more than R STG Duration achieved Object Oriented Programmer Goal (LTG) Pt will be able to lift 20 lb boxes with minimal to no left shoulder pain. LTG Duration achieved w/min soreness One Impairment Left cervical rotation limited Short Term Goal (STG) Left cervical rotation will improve by 50 % STG Duration achieved Object Oriented Programmer Goal (LTG) Left cervical rot. will improve by 100% to WNL. LTG Duration achieved Assessment Summary Assessment Pt has made excellent progress with PT and has met all goals and B shoulders and neck are feeling much better. She did well with exercises w/min cues needed. Pt DC at this time to [facility]. Physical Therapy Plan Discharge Physical Therapy Discharge Reasons Goals Met
== END 2023-07-05 10:29 | disposition home or self-care (01) ==
LOC: PHYS 10:00
PROVIDERS: Family Provider Internal Medicine; PCP Internal Medicine; Referring Provider Internal Medicine; Visit Provider Internal Medicine
DX: M75.101 Unspecified rotator cuff tear or rupture of right shoulder, not specified as traumatic (principal); M25.511 Pain in right shoulder; M25.512 Pain in left shoulder
CPT/HCPCS: 95851; 97012; 97110; 97112; 97140; 97161; 97530; 97535

== ENCOUNTER → 2023-08-01 12:11 | Outpatient (CLI) | payer MEDICARE, SELFPAY ==
[2022-10-23 11:50] VITALS: BMI 24.3
[2023-08-01 13:05] LABS: Hemoglobin 7.9 g/dL (12.0-16.0); Mean Corpuscular HGB Conc 32.9 % (30-36); Mean Corpuscular Hemoglobin 29.5 PG (26-34); Mean Corpuscular Volume 89.8 fL (80-100); Platelet Count 375 X10^3/uL (150-400); Red Blood Cell Count 2.67 X10^6/uL (4.0-5.2); Red Cell Distribution Width 15.5 % (11.6-14.8)
[2023-08-01 13:06] LABS: Add Manual Diff / Slide Review YES
[2023-08-01 13:36] LABS: Neutrophils Absolute Manual 8030 /uL (3000-5900); Total Cells Counted 100
[2023-08-01 13:37] LABS: RBC Morphology Normal Morphology
[2023-08-01 13:42] LABS: HEMOLYSIS < 15 (0-50); Iron 95 ug/dL (37-170)
[2023-08-01 13:48] LABS: Alanine Aminotransferase 21 IU/L (<35); Albumin 4.4 g/dL (3.5-5.0); Albumin Globulin Ratio 1.8 (1.0-2.8); Alkaline Phosphatase 63 U/L (38-126); Aspartate Aminotransferase 25 IU/L (14-36); BUN Creatinine Ratio 18.6 (6-22); Bilirubin Total 0.6 mg/dL (0.2-1.3); Blood Urea Nitrogen 21 mg/dL (7-17); Calcium 9.7 mg/dL (8.4-10.2); Carbon Dioxide 24 mmol/L (22-32); Chloride 103 mmol/L (98-107); Estimated Glomerular Filt Rate 54 mL/min (>60); Globulin 2.4 g/dL (1.7-4.1); Glucose 164 mg/dL (80-110); HEMOLYSIS < 15 (0-50); Sodium 137 mmol/L (137-145); Total Protein 6.8 g/dL (6.3-8.2)
[2023-08-01 13:55] LABS: Percent Iron Saturation 26 % (15-50); Total Iron Binding Capacity 359 ug/dL (265-497); Transferrin 267 mg/dL (206-381)
[2023-08-01 14:12] LABS: Potassium 5.7 mmol/L (3.4-5.1)
[2023-08-01 14:50] LABS: Folate 9.4 ng/mL (2.76-20.0); Vitamin B12 > 1000 pg/mL (239-931)
== END ==
PROVIDERS: Family Provider Internal Medicine; PCP Internal Medicine; Referring Provider Internal Medicine; Visit Provider Internal Medicine
DX: D64.9 Anemia, unspecified (principal); E61.1 Iron deficiency; E78.2 Mixed hyperlipidemia; N18.31 Chronic kidney disease, stage 3a
CPT/HCPCS: 36415; 80053; 82607; 82746; 83540; 83550; 85007; 85025

== ENCOUNTER → 2023-09-20 10:01 | Outpatient (CLI) | payer MEDICARE, SELFPAY ==
[2022-10-23 11:50] VITALS: BMI 24.3
[2023-09-20 10:41] LABS: Hemoglobin A1C% w Est Avg Glu 5.9 % (4.0-6.0)
[2023-09-20 10:59] LABS: Alanine Aminotransferase 33 IU/L (<35); Albumin 4.7 g/dL (3.5-5.0); Albumin Globulin Ratio 1.7 (1.0-2.8); Alkaline Phosphatase 79 U/L (38-126); Aspartate Aminotransferase 29 IU/L (14-36); BUN Creatinine Ratio 25.8 (6-22); Bilirubin Total 0.3 mg/dL (0.2-1.3); Blood Urea Nitrogen 24 mg/dL (7-17); Calcium 10.4 mg/dL (8.4-10.2); Carbon Dioxide 25 mmol/L (22-32); Chloride 103 mmol/L (98-107); Cholesterol 210 mg/dL (140-199); Estimated Glomerular Filt Rate > 60 mL/min (>60); Globulin 2.7 g/dL (1.7-4.1); Glucose 149 mg/dL (80-110); HDL Cholesterol 59 mg/dL (40-60); HEMOLYSIS < 15 (0-50); LDL Cholesterol Calculated 103 mg/dL (<100); Potassium 4.8 mmol/L (3.4-5.1); Sodium 139 mmol/L (137-145); Total Protein 7.4 g/dL (6.3-8.2); Triglycerides 240 mg/dL (35-150)
[2023-09-20 12:28] LABS: Creatinine Urine Random 141.1 mg/dL
[2023-09-20 12:34] LABS: Microalbumi Creatinin Ratio Ur 11.3 ug/mg CR (<30); Microalbumin Urine Random 1.6 mg/dL (0-1.6)
== END ==
PROVIDERS: Family Provider Internal Medicine; PCP Internal Medicine; Referring Provider Internal Medicine; Visit Provider Internal Medicine
DX: E11.9 Type 2 diabetes mellitus without complications (principal); N18.31 Chronic kidney disease, stage 3a; E78.2 Mixed hyperlipidemia; I42.9 Cardiomyopathy, unspecified
CPT/HCPCS: 36415; 80053; 80061; 82043; 82570; 83036

== ENCOUNTER 2024-03-06 09:45 | Outpatient (RCR) | payer MEDICARE, SELFPAY ==
[2022-10-23 11:50] VITALS: BMI 24.3
--- NOTE | 2023-09-06 11:35 | PT.OIE ---
Current Diagnoses Displaced spiral fracture of shaft of right tibia, subsequent encounter for closed fracture with routine healing (09/06/23) Past Medical History (Last Updated 04/23/23 @ 11:22 by Jose Brito MD) Anemia of chronic disease Back pain (03/19/14) CAD (coronary atherosclerotic disease) (~1998) Cardiomyopathy Chronic renal failure, stage 3a Diabetic peripheral neuropathy (11/10/15) Fibromyalgia (03/12/17) Foraminal stenosis of lumbosacral region GERD (gastroesophageal reflux disease) Herniated disc Hypertension Insomnia Mixed hyperlipidemia Myocardial infarction (~1998) Recurrent major depressive disorder, in full remission Type 2 diabetes mellitus with hyperglycemia Type 2 diabetes mellitus without complication Uncomplicated opioid dependence Unspecified asthma Past Surgical History (Last Reviewed 03/16/20 @ 07:01 by PEPE Yousif) S/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 Status post appendectomy Surgical procedure planned Visit Care Team Role Provider Type Other Providers Specialty: Address: Phone: Fax: Email: Jose Brito MD Family Provider Physician Primary Care Provider Specialty: Internal Medicine Address: [address] [place] [address], [address], [address] Email: [email or web address] Cordell Jauregui PA-C Attending Provider Non-Staff Referring Provider Specialty: Medical Address: [address] [place] [address], [id number] Email: Physical Therapy Initial Evaluation PT-OP-A Visit Information Start: 09/06/23 11:34 Freq: Status: Active Protocol: Document 09/06/23 11:35 AM (Rec: 09/06/23 13:05 AM [id number]) Out-Patient Physical Therapy Visit Information Visit Information Visit Type Initial Evaluation Visit Start Time 11:35 Visit Stop Time 12:25 Total Visit Minutes 50 Visit Number 1 Evaluation Information Evaluation Date 09/06/23 PT-OP-B Current Condition Start: 09/06/23 11:34 Freq: Status: Active Protocol: Document 09/06/23 11:35 AM (Rec: 09/06/23 13:05 AM [id number]) Current Condition History of Current Condition Onset Date 07/22/23 Current Complaints R Lower leg pain from recent fracture History of Current Condition Pt fractured R tib-fib on . Pt had surgical repair on 07/23/23. Pt was TDWB, though now WBAT. Pt slipped on a step and fell. Pt had previous issue of R knee giving out on her. Pt reports that she had a fall 2 months prior. Prior Treatments and Tests Intramedullary nail Prior Functional Status Baseline Function- ADL's Independent Baseline Function- Mobility Independent Current Functional Impairments (Reported) Functional Limitations- ADL's Pt is getting help with ADLs. Pt reports that she can dress herself, though some difficulty with getting in and out of shower. Pt does have a shower chair. Functional Limitations- Mobility/Gait Pt is using 4WW night time nanny. Pt reports that she is able to walk 5-6 min before need to sit for a break. PT-OP-C Subjective Start: 09/06/23 11:34 Freq: Status: Active Protocol: Document 09/06/23 11:35 AM (Rec: 09/06/23 13:05 AM [id number]) Patient Questionnaires Lower Extremity Functional Scale LEFS Score 12 LEFS Impairment 80 to 99% Impaired (Score 1-16 ) OP-PT Pain Assessment Pain Assessment Grid Paper Pain Assessment Grid Completed Yes Location L lower leg Pain Location Details Anterior lower leg, knee pain Intensity 9 Scale Used Numeric (0 - 10) Description Aching Description- Other 9/10 at the worst Frequency Daily Pain Aggravating Factors ADL's,Activity,Standing, Walking,Stair Climbing Pain Alleviating Factors Medication PT-OP-D Balance Start: 09/06/23 11:34 Freq: Status: Active Protocol: Document 09/06/23 11:35 AM (Rec: 09/06/23 13:05 AM [id number]) OP-PT Balance Assessment Standing Balance Static Standing Balance Ability Good Dynamic Standing Balance Ability Fair Device Used 4WW Balance Tests Single Limb Standing Single Limb- Right unable to stand on R LE Vargas Fall Scale Copyright Permission PT-OP-F Manual Assessment Start: 09/06/23 11:34 Freq: Status: Active Protocol: Document 09/06/23 11:35 AM (Rec: 09/06/23 13:05 AM [id number]) Manual Assessments Soft Tissue Assessment Soft Tissue Mobility Assessment Surgical incisions healed. Pt demonstrates ecchymosis at R lower leg and foot. Mild pitting edema. PT-OP-G Mobility & Gait Start: 09/06/23 11:34 Freq: Status: Active Protocol: Document 09/06/23 11:35 AM (Rec: 09/06/23 13:05 AM [id number]) OP Gait Assessment Gait Gait Assistance Required: Independent Able to Maintain Weight Bearing Status Yes During Gait Assistive Devices Assistive Device None,4 Wheeled Walker Gait Deviations General Gait Pattern Antalgic,Decreased Stride Length,Flexed Trunk Factors Limiting Gait Function Factors Limiting Gait Function Decreased Activity Tolerance, Decreased Strength,Limited Range of Motion,Pain Comments Gait Comments Difficulty achieving R knee extension, cues to decrease UT tension PT-OP-K Range of Motion Start: 09/06/23 11:34 Freq: Status: Active Protocol: Document 09/06/23 11:35 AM (Rec: 09/06/23 13:05 AM [id number]) Knee Goniometric Range of Motion Knee Left Flexion Active (degrees) 145 Extension Active (degrees) 0 Right Knee ROM WFL No Patient Position Supine Flexion Active (degrees) 97 Extension Active (degrees) 10 Ankle and Foot Goniometric Range of Motion Ankle and Foot Left Active Ankle/Foot ROM WFL Yes Testing Position Supine Dorsiflexion with Knee Extended 10 Plantarflexion 35 Inversion 30 Eversion 18 Right Active Ankle/Foot ROM WFL No Testing Position Supine Dorsiflexion with Knee Extended 0 Plantarflexion 20 Inversion 18 Eversion 5 PT-OP-M Strength Start: 09/06/23 11:34 Freq: Status: Active Protocol: Document 09/06/23 11:35 AM (Rec: 09/06/23 13:05 AM [id number]) Hip Strength Hip Manual Muscle Testing Right Flexion (L2) 3+ Fair+ Extension (S1) 4- Good- Abduction 3+ Fair+ Adduction 4 Good Left Flexion (L2) 4+ Good+ Extension (S1) 4+ Good+ Abduction 4- Good- Adduction 4+ Good+ Knee Strength Knee Manual Muscle Testing Right Flexion (S2) 3 Fair Extension (L3) 3 Fair Comments Extensor lag with SLR Left Flexion (S2) 4 Good Extension (L3) 4+ Good+ Ankle/Foot Strength Ankle and Foot Manual Muscle Testing Right Dorsiflexion (L4) 3 Fair Plantarflexion (S1) 3+ Fair+ Inversion 3 Fair Eversion (S1) 3 Fair Left Dorsiflexion (L4) 5 Normal Plantarflexion (S1) 5 Normal Inversion 5 Normal Eversion (S1) 5 Normal PT-OP-Q Treatments Start: 09/06/23 11:34 Freq: Status: Active Protocol: Document 09/06/23 11:35 AM (Rec: 09/06/23 13:05 AM [id number]) Therapeutic Exercises Supine Exercises Quad set Side right Reps/Minutes 5x5 sec Heel slides Side right Reps/Minutes x5 Alphabet Side right Comments cues to decrease movement at knee Sitting Exercises Calf stretch Sitting Exercise Name Long sitting Side right Equipment Used towel Reps/Minutes x30 sec Gait Training Gait Activity 4WW gait Device Used 4WW Comments Cues for heel strike, shorter strides, relaxation of UT PT-OP-T Assessment and Plan Start: 09/06/23 11:34 Freq: Status: Active Protocol: Document 09/06/23 11:35 AM (Rec: 09/06/23 13:05 AM [id number]) Physical Therapy Assessment Rehab Potential Rehabilitation Potential Excellent Evaluation Complexity Number of Personal Factors/Comorbidities 1-2 Number of Body Systems Impaired 1-2 Clinical Presentation at Evaluation Stable Impairments Impairments Activity Tolerance,Balance, Coordination,Edema,Functional Activities,Functional Mobility ,Gait,Pain,Posture,ROM,Soft Tissue Mobility,Strength Goals Walking Impairment Pt able to walk 5-6 min before need to sit at IE. Short Term Goal (STG) Pt able to ambulate 15 min before need to sit. STG Duration 10/11/23 Senior Care Goal (LTG) Pt able to ambulate 30 min before need to sit. LTG Duration 11/15/23 ROM Impairment Pt with limitations at R knee and ankle ROM. Reservations Sales Agent Goal (LTG) Pt with R knee and ankle ROM that is WFL. LTG Duration 11/15/23 Gait Impairment Pt ambulating with 4WW. Short Term Goal (STG) Pt able to ambulate safely with SPC. STG Duration 10/11/23 Senior Care Goal (LTG) Pt able to ambulate safely without AD. LTG Duration 11/15/23 LEFS Impairment Pt with score of 12/80 on LEFS at IE Short Term Goal (STG) Pt with score of 35/80 STG Duration 10/11/23 Senior Care Goal (LTG) Pt with score of 45/80 on LEFS LTG Duration 11/15/23 Strength Impairment Pt with 3/5 to 3+/5 R LE strength grossly. Short Term Goal (STG) Pt with 4-/5 to 4/5 R LE strength grossly. STG Duration 10/11/23 Senior Care Goal (LTG) Pt with 4+/5 to 5/5 R LE strength grossly. Pain Impairment Pt with 9/10 at worst at IE. Short Term Goal (STG) Pt to report pain at 6/10 at the worst. STG Duration 10/11/23 Senior Care Goal (LTG) Pt to report that pain is <1/ 10 at the worst. LTG Duration 11/15/23 Assessment Summary Assessment Lorenzo Yarbrough presents to PT following open reduction of right tibial shaft farcture with associated fibulat shaft fracture. Pt presents to FWW today, demonstrating antalgic gait pattern. Pt demonstrates limitations in ROM at R knee and ankle. Pt also demonstrates strength deficits at R LE. Pt cued for heel strike, shorter strides and posture with ambulation with FWW. Pt's incision sites healed and pt has mild ecchymosis and edema. Pt would benefit from continued PT to progress pt's gait, strength, balance and mobility to improve tolerance to functional tasks. Physical Therapy Plan Frequency and Duration Frequency of Treatment 2x/Week Duration of treatment (weeks) 10 Plan of Care Start Date 09/06/23 Plan of Care End Date 11/15/23 Therapeutic Interventions Therapeutic Interventions Balance Training,Coordination Training,Gait Training,Home Exercise Program,Joint Mobilizations,Manual Therapy, Neuromuscular Re-education, Patient/Caregiver Education, Self-Care/Home Management,Soft Tissue Mobilization,Taping, Therapeutic Activities, Therapeutic Exercises Modalities Cold Pack/Ice Massage,Electric Stimulation,Hot Packs, Ultrasound Next Visit Focus/Plan Next Note Type Treatment Note Next Visit Plan progress R LE strength and mobility as tolerated
--- NOTE | 2023-09-06 11:35 | PT.OPPOC ---
Physical, Occupational & Speech Therapy At [facility] Current Diagnoses Displaced spiral fracture of shaft of right tibia, subsequent encounter for closed fracture with routine healing (09/06/23) Visit Care Team Role Provider Type Other Providers Specialty: Address: Phone: Fax: Email: Jose Brito MD Family Provider Physician Primary Care Provider Specialty: Internal Medicine Address: [address] [place] [address], [facility] [address], [place], [address] Email: [email or web address] Cordell Jauregui PA-C Attending Provider Non-Staff Referring Provider Specialty: Medical Address: [address] [place] [address], [id number] Email: Plan Of Care PT-OP-T Assessment and Plan Start: 09/06/23 11:34 Freq: Status: Active Protocol: Document 09/06/23 11:35 AM (Rec: 09/06/23 13:05 AM [id number]) Physical Therapy Assessment Rehab Potential Rehabilitation Potential Excellent Evaluation Complexity Number of Personal Factors/Comorbidities 1-2 Number of Body Systems Impaired 1-2 Clinical Presentation at Evaluation Stable Impairments Impairments Activity Tolerance,Balance, Coordination,Edema,Functional Activities,Functional Mobility ,Gait,Pain,Posture,ROM,Soft Tissue Mobility,Strength Goals Walking Impairment Pt able to walk 5-6 min before need to sit at IE. Short Term Goal (STG) Pt able to ambulate 15 min before need to sit. STG Duration 10/11/23 Skilled Nursing Goal (LTG) Pt able to ambulate 30 min before need to sit. LTG Duration 11/15/23 ROM Impairment Pt with limitations at R knee and ankle ROM. Skilled Nursing Goal (LTG) Pt with R knee and ankle ROM that is WFL. LTG Duration 11/15/23 Gait Impairment Pt ambulating with 4WW. Short Term Goal (STG) Pt able to ambulate safely with SPC. STG Duration 10/11/23 Skilled Nursing Goal (LTG) Pt able to ambulate safely without AD. LTG Duration 11/15/23 LEFS Impairment Pt with score of 12/80 on LEFS at IE Short Term Goal (STG) Pt with score of 35/80 STG Duration 10/11/23 Chief Operating Engineer Goal (LTG) Pt with score of 45/80 on LEFS LTG Duration 11/15/23 Strength Impairment Pt with 3/5 to 3+/5 R LE strength grossly. Short Term Goal (STG) Pt with 4-/5 to 4/5 R LE strength grossly. STG Duration 10/11/23 Chief Operating Engineer Goal (LTG) Pt with 4+/5 to 5/5 R LE strength grossly. Pain Impairment Pt with 9/10 at worst at IE. Short Term Goal (STG) Pt to report pain at 6/10 at the worst. STG Duration 10/11/23 Chief Operating Engineer Goal (LTG) Pt to report that pain is <1/ 10 at the worst. LTG Duration 11/15/23 Assessment Summary Assessment Lorenzo Yarbrough presents to PT following open reduction of right tibial shaft farcture with associated fibulat shaft fracture. Pt presents to [facility] today, demonstrating antalgic gait pattern. Pt demonstrates limitations in ROM at R knee and ankle. Pt also demonstrates strength deficits at R LE. Pt cued for heel strike, shorter strides and posture with ambulation with FWW. Pt's incision sites healed and pt has mild ecchymosis and edema. Pt would benefit from continued PT to progress pt's gait, strength, balance and mobility to improve tolerance to functional tasks. Physical Therapy Plan Frequency and Duration Frequency of Treatment 2x/Week Duration of treatment (weeks) 10 Plan of Care Start Date 09/06/23 Plan of Care End Date 11/15/23 Therapeutic Interventions Therapeutic Interventions Balance Training,Coordination Training,Gait Training,Home Exercise Program,Joint Mobilizations,Manual Therapy, Neuromuscular Re-education, Patient/Caregiver Education, Self-Care/Home Management,Soft Tissue Mobilization,Taping, Therapeutic Activities, Therapeutic Exercises Modalities Cold Pack/Ice Massage,Electric Stimulation,Hot Packs, Ultrasound Next Visit Focus/Plan Next Note Type Treatment Note Next Visit Plan progress R LE strength and mobility as tolerated Plan of Care Dates Plan of Care Start Date 09/06/23 Plan of Care End Date 11/15/23 Electronically Signed by: Mari Byrens, PT 09/06/23 2220 If you are in agreement with this Plan of Care, please return a signed and dated copy. I have reviewed this Plan of Care and certify that the skilled therapy services above are required to meet the patient?s needs. Physician Signature Date Printed Name and Credentials Clinical Instructor Signature Printed Name and Credentials
--- NOTE | 2023-09-10 13:33 | PT.OTN ---
Current Diagnoses Displaced spiral fracture of shaft of right tibia, subsequent encounter for closed fracture with routine healing (09/10/23) Physical Therapy Treatment Note PT-OP-A Visit Information Start: 09/06/23 11:34 Freq: Status: Active Protocol: Document 09/10/23 13:23 AM (Rec: 09/10/23 14:48 AM [id number]) Out-Patient Physical Therapy Visit Information Visit Information Visit Type Treatment Note Visit Start Time 13:33 Visit Stop Time 14:18 Total Visit Minutes 45 Visit Number 2 PT-OP-B Current Condition Start: 09/06/23 11:34 Freq: Status: Active Protocol: Document 09/06/23 11:35 AM (Rec: 09/06/23 13:05 AM [id number]) Current Condition History of Current Condition Onset Date 07/22/23 Current Complaints R Lower leg pain from recent fracture History of Current Condition Pt fractured R tib-fib on . Pt had surgical repair on 07/23/23. Pt was TDWB, though now WBAT. Pt slipped on a step and fell. Pt had previous issue of R knee giving out on her. Pt reports that she had a fall 2 months prior. Prior Treatments and Tests Intramedullary nail Prior Functional Status Baseline Function- ADL's Independent Baseline Function- Mobility Independent Current Functional Impairments (Reported) Functional Limitations- ADL's Pt is getting help with ADLs. Pt reports that she can dress herself, though some difficulty with getting in and out of shower. Pt does have a shower chair. Functional Limitations- Mobility/Gait Pt is using 4WW time study clerk. Pt reports that she is able to walk 5-6 min before need to sit for a break. PT-OP-C Subjective Start: 09/06/23 11:34 Freq: Status: Active Protocol: Document 09/10/23 13:23 AM (Rec: 09/10/23 14:48 AM [id number]) OP-PT Subjective Patient Comments Patient Comments Pt reports good compliance with HEP, though trying not to overdo it. PT-OP-D Balance Start: 09/06/23 11:34 Freq: Status: Active Protocol: Document 09/06/23 11:35 AM (Rec: 09/06/23 13:05 AM [id number]) OP-PT Balance Assessment Standing Balance Static Standing Balance Ability Good Dynamic Standing Balance Ability Fair Device Used 4WW Balance Tests Single Limb Standing Single Limb- Right unable to stand on R LE Vargas Fall Scale Copyright Permission PT-OP-F Manual Assessment Start: 09/06/23 11:34 Freq: Status: Active Protocol: Document 09/06/23 11:35 AM (Rec: 09/06/23 13:05 AM [id number]) Manual Assessments Soft Tissue Assessment Soft Tissue Mobility Assessment Surgical incisions healed. Pt demonstrates ecchymosis at R lower leg and foot. Mild pitting edema. PT-OP-G Mobility & Gait Start: 09/06/23 11:34 Freq: Status: Active Protocol: Document 09/06/23 11:35 AM (Rec: 09/06/23 13:05 AM [id number]) OP Gait Assessment Gait Gait Assistance Required: Independent Able to Maintain Weight Bearing Status Yes During Gait Assistive Devices Assistive Device None,4 Wheeled Walker Gait Deviations General Gait Pattern Antalgic,Decreased Stride Length,Flexed Trunk Factors Limiting Gait Function Factors Limiting Gait Function Decreased Activity Tolerance, Decreased Strength,Limited Range of Motion,Pain Comments Gait Comments Difficulty achieving R knee extension, cues to decrease UT tension PT-OP-K Range of Motion Start: 09/06/23 11:34 Freq: Status: Active Protocol: Document 09/10/23 13:23 AM (Rec: 09/10/23 14:48 AM [id number]) Knee Goniometric Range of Motion Knee Right Flexion Active (degrees) 104 Extension Active (degrees) 5 PT-OP-M Strength Start: 09/06/23 11:34 Freq: Status: Active Protocol: Document 09/06/23 11:35 AM (Rec: 09/06/23 13:05 AM [id number]) Hip Strength Hip Manual Muscle Testing Right Flexion (L2) 3+ Fair+ Extension (S1) 4- Good- Abduction 3+ Fair+ Adduction 4 Good Left Flexion (L2) 4+ Good+ Extension (S1) 4+ Good+ Abduction 4- Good- Adduction 4+ Good+ Knee Strength Knee Manual Muscle Testing Right Flexion (S2) 3 Fair Extension (L3) 3 Fair Comments Extensor lag with SLR Left Flexion (S2) 4 Good Extension (L3) 4+ Good+ Ankle/Foot Strength Ankle and Foot Manual Muscle Testing Right Dorsiflexion (L4) 3 Fair Plantarflexion (S1) 3+ Fair+ Inversion 3 Fair Eversion (S1) 3 Fair Left Dorsiflexion (L4) 5 Normal Plantarflexion (S1) 5 Normal Inversion 5 Normal Eversion (S1) 5 Normal PT-OP-Q Treatments Start: 09/06/23 11:34 Freq: Status: Active Protocol: Document 09/10/23 13:23 AM (Rec: 09/10/23 14:48 AM [id number]) Cardio Equipment Recumbent Stepper (Sci-[employer]) Duration (Minutes) 4 Resistance 1 Seat Position 7 Other For knee ROM only, controlled with UE Therapeutic Exercises Supine Exercises SAQ Side right Equipment Used black foam roll Reps/Minutes x15 Ankle pump Side right Reps/Minutes x10 Comments pt encouraged to go to comfortable end range Quad set Side right Reps/Minutes 10x5 sec Heel slides Side right Reps/Minutes x10 Sidelying Exercises Clamshell Side right Reps/Minutes x10 Sitting Exercises LAQ Sitting Exercise Name LAQ Side right Reps/Minutes x15 Manual Therapy Treatment Soft Tissue Mobilization R LE Body Location scar tissue mobilization, MLD at R lower leg Mobilization Type Manual Lymphatic Drainage Intensity/Depth Superficial Body Position supine with bolster under LE Comments Superficial for MLD, moderate for scar tissue mobilization at incision sites PT-OP-T Assessment and Plan Start: 09/06/23 11:34 Freq: Status: Active Protocol: Document 09/10/23 13:23 AM (Rec: 09/10/23 14:48 AM [id number]) Physical Therapy Assessment Goals Walking Impairment Pt able to walk 5-6 min before need to sit at IE. Short Term Goal (STG) Pt able to ambulate 15 min before need to sit. STG Duration 10/11/23 Skilled Nursing Goal (LTG) Pt able to ambulate 30 min before need to sit. LTG Duration 11/15/23 ROM Impairment Pt with limitations at R knee and ankle ROM. Purchase Order Checker Goal (LTG) Pt with R knee and ankle ROM that is WFL. LTG Duration 11/15/23 Gait Impairment Pt ambulating with 4WW. Short Term Goal (STG) Pt able to ambulate safely with SPC. STG Duration 10/11/23 Purchase Order Checker Goal (LTG) Pt able to ambulate safely without AD. LTG Duration 11/15/23 LEFS Impairment Pt with score of 12/80 on LEFS at IE Short Term Goal (STG) Pt with score of 35/80 STG Duration 10/11/23 Skilled Nursing Goal (LTG) Pt with score of 45/80 on LEFS LTG Duration 11/15/23 Strength Impairment Pt with 3/5 to 3+/5 R LE strength grossly. Short Term Goal (STG) Pt with 4-/5 to 4/5 R LE strength grossly. STG Duration 10/11/23 Purchase Order Checker Goal (LTG) Pt with 4+/5 to 5/5 R LE strength grossly. Pain Impairment Pt with 9/10 at worst at IE. Short Term Goal (STG) Pt to report pain at 6/10 at the worst. STG Duration 10/11/23 Skilled Nursing Goal (LTG) Pt to report that pain is <1/ 10 at the worst. LTG Duration 11/15/23 Assessment Summary Assessment Pt demonstrates improvement in gait pattern with improved heel strike. Pt demonstrates improving knee flex/ext mobility on R. Pt reported fatigue with exercises thought tolerated well. Pt will return to PT later this week to continue to progress R LE mobility and strength as tolerated. Physical Therapy Plan Frequency and Duration Frequency of Treatment 2x/Week Duration of treatment (weeks) 10 Plan of Care Start Date 09/06/23 Plan of Care End Date 11/15/23 Therapeutic Interventions Therapeutic Interventions Balance Training,Coordination Training,Gait Training,Home Exercise Program,Joint Mobilizations,Manual Therapy, Neuromuscular Re-education, Patient/Caregiver Education, Self-Care/Home Management,Soft Tissue Mobilization,Taping, Therapeutic Activities, Therapeutic Exercises Modalities Cold Pack/Ice Massage,Electric Stimulation,Hot Packs, Ultrasound Next Visit Focus/Plan Next Note Type Treatment Note Next Visit Plan progress R LE strength and mobility, progress HEP
--- NOTE | 2023-09-12 15:15 | PT.OTN ---
Current Diagnoses Displaced spiral fracture of shaft of right tibia, subsequent encounter for closed fracture with routine healing (09/12/23) Physical Therapy Treatment Note PT-OP-A Visit Information Start: 09/06/23 11:34 Freq: Status: Active Protocol: Document 09/12/23 15:15 AM (Rec: 09/12/23 16:02 AM [id number]) Out-Patient Physical Therapy Visit Information Visit Information Visit Type Treatment Note Visit Start Time 15:15 Visit Stop Time 16:01 Total Visit Minutes 46 Visit Number 3 PT-OP-B Current Condition Start: 09/06/23 11:34 Freq: Status: Active Protocol: Document 09/12/23 15:15 AM (Rec: 09/12/23 16:02 AM [id number]) Current Condition History of Current Condition Onset Date 07/22/23 Current Complaints R Lower leg pain from recent fracture History of Current Condition Pt fractured R tib-fib on . Pt had surgical repair on 07/23/23. Pt was TDWB, though now WBAT. Pt slipped on a step and fell. Pt had previous issue of R knee giving out on her. Pt reports that she had a fall 2 months prior. Prior Treatments and Tests Intramedullary nail PT-OP-C Subjective Start: 09/06/23 11:34 Freq: Status: Active Protocol: Document 09/12/23 15:15 AM (Rec: 09/12/23 16:02 AM [id number]) OP-PT Subjective Patient Comments Patient Comments Pt reports that she was not too sore following last session. PT-OP-D Balance Start: 09/06/23 11:34 Freq: Status: Active Protocol: Document 09/06/23 11:35 AM (Rec: 09/06/23 13:05 AM [id number]) OP-PT Balance Assessment Standing Balance Static Standing Balance Ability Good Dynamic Standing Balance Ability Fair Device Used 4WW Balance Tests Single Limb Standing Single Limb- Right unable to stand on R LE Vargas Fall Scale Copyright Permission PT-OP-F Manual Assessment Start: 09/06/23 11:34 Freq: Status: Active Protocol: Document 09/06/23 11:35 AM (Rec: 09/06/23 13:05 AM [id number]) Manual Assessments Soft Tissue Assessment Soft Tissue Mobility Assessment Surgical incisions healed. Pt demonstrates ecchymosis at R lower leg and foot. Mild pitting edema. PT-OP-G Mobility & Gait Start: 09/06/23 11:34 Freq: Status: Active Protocol: Document 09/06/23 11:35 AM (Rec: 09/06/23 13:05 AM [id number]) OP Gait Assessment Gait Gait Assistance Required: Independent Able to Maintain Weight Bearing Status Yes During Gait Assistive Devices Assistive Device None,4 Wheeled Walker Gait Deviations General Gait Pattern Antalgic,Decreased Stride Length,Flexed Trunk Factors Limiting Gait Function Factors Limiting Gait Function Decreased Activity Tolerance, Decreased Strength,Limited Range of Motion,Pain Comments Gait Comments Difficulty achieving R knee extension, cues to decrease UT tension PT-OP-K Range of Motion Start: 09/06/23 11:34 Freq: Status: Active Protocol: Document 09/12/23 15:15 AM (Rec: 09/12/23 16:02 AM [id number]) Knee Goniometric Range of Motion Knee Right Flexion Active (degrees) 111 PT-OP-M Strength Start: 09/06/23 11:34 Freq: Status: Active Protocol: Document 09/06/23 11:35 AM (Rec: 09/06/23 13:05 AM [id number]) Hip Strength Hip Manual Muscle Testing Right Flexion (L2) 3+ Fair+ Extension (S1) 4- Good- Abduction 3+ Fair+ Adduction 4 Good Left Flexion (L2) 4+ Good+ Extension (S1) 4+ Good+ Abduction 4- Good- Adduction 4+ Good+ Knee Strength Knee Manual Muscle Testing Right Flexion (S2) 3 Fair Extension (L3) 3 Fair Comments Extensor lag with SLR Left Flexion (S2) 4 Good Extension (L3) 4+ Good+ Ankle/Foot Strength Ankle and Foot Manual Muscle Testing Right Dorsiflexion (L4) 3 Fair Plantarflexion (S1) 3+ Fair+ Inversion 3 Fair Eversion (S1) 3 Fair Left Dorsiflexion (L4) 5 Normal Plantarflexion (S1) 5 Normal Inversion 5 Normal Eversion (S1) 5 Normal PT-OP-Q Treatments Start: 09/06/23 11:34 Freq: Status: Active Protocol: Document 09/12/23 15:15 AM (Rec: 09/12/23 16:02 AM [id number]) Cardio Equipment Recumbent Elliptical ([employer]) Duration (Minutes) 5 Resistance 1 Seat Position 5 Other ROM only Therapeutic Exercises Supine Exercises SAQ Reps/Minutes x15 Ankle pump Supine Exercise Name AROM to resisted Resistance pe[place] TB Reps/Minutes 2x10 Comments AROM added to HEP Heel slides Reps/Minutes x10 Sidelying Exercises Clamshell Side right Reps/Minutes x10 Comments produced ankle symptom Sitting Exercises LAQ Sitting Exercise Name LAQ Side right Reps/Minutes x15 Comments added to hEP Standing Exercises Hip extension Resistance Right Reps/Minutes x10 Hip abduction Side right Reps/Minutes x10 calf stretch Equipment Used meghan, railing Reps/Minutes x30 sec Gait Training Gait Activity ambulation Device Used railing Comments Walking with unilateral railing-pt demonstrates decreased push off and heel strike, increased antalgic gait. PT-OP-T Assessment and Plan Start: 09/06/23 11:34 Freq: Status: Active Protocol: Document 09/12/23 15:15 AM (Rec: 09/12/23 16:02 AM [id number]) Physical Therapy Assessment Goals Walking Impairment Pt able to walk 5-6 min before need to sit at IE. Short Term Goal (STG) Pt able to ambulate 15 min before need to sit. STG Duration 10/11/23 Group Contract Analyst Goal (LTG) Pt able to ambulate 30 min before need to sit. LTG Duration 11/15/23 ROM Impairment Pt with limitations at R knee and ankle ROM. Group Contract Analyst Goal (LTG) Pt with R knee and ankle ROM that is WFL. LTG Duration 11/15/23 Gait Impairment Pt ambulating with 4WW. Short Term Goal (STG) Pt able to ambulate safely with SPC. STG Duration 10/11/23 Group Contract Analyst Goal (LTG) Pt able to ambulate safely without AD. LTG Duration 11/15/23 LEFS Impairment Pt with score of 12/80 on LEFS at IE Short Term Goal (STG) Pt with score of 35/80 STG Duration 10/11/23 Group Contract Analyst Goal (LTG) Pt with score of 45/80 on LEFS LTG Duration 11/15/23 Strength Impairment Pt with 3/5 to 3+/5 R LE strength grossly. Short Term Goal (STG) Pt with 4-/5 to 4/5 R LE strength grossly. STG Duration 10/11/23 Retirement Goal (LTG) Pt with 4+/5 to 5/5 R LE strength grossly. Pain Impairment Pt with 9/10 at worst at IE. Short Term Goal (STG) Pt to report pain at 6/10 at the worst. STG Duration 10/11/23 Group Contract Analyst Goal (LTG) Pt to report that pain is <1/ 10 at the worst. LTG Duration 11/15/23 Assessment Summary Assessment Pt requires cueing to decrease lateral tibial torsion during gait. Pt demonstrates improving ankle and knee ROM. Pt able to tolerate gentle ankle strengthening today, without reported increase in symptoms. Pt demonstrated symptoms of anterior ankle impingement with standing calf stretch. Physical Therapy Plan Frequency and Duration Frequency of Treatment 2x/Week Duration of treatment (weeks) 10 Plan of Care Start Date 09/06/23 Plan of Care End Date 11/15/23 Therapeutic Interventions Therapeutic Interventions Balance Training,Coordination Training,Gait Training,Home Exercise Program,Joint Mobilizations,Manual Therapy, Neuromuscular Re-education, Patient/Caregiver Education, Self-Care/Home Management,Soft Tissue Mobilization,Taping, Therapeutic Activities, Therapeutic Exercises Modalities Cold Pack/Ice Massage,Electric Stimulation,Hot Packs, Ultrasound Next Visit Focus/Plan Next Note Type Treatment Note Next Visit Plan progress R LE strength and mobility, progress HEP
--- NOTE | 2023-09-20 09:03 | PT.OTN ---
Current Diagnoses Displaced spiral fracture of shaft of right tibia, subsequent encounter for closed fracture with routine healing (09/20/23) Physical Therapy Treatment Note PT-OP-A Visit Information Start: 09/06/23 11:34 Freq: Status: Active Protocol: Document 09/20/23 09:03 AM (Rec: 09/20/23 09:59 AM [id number]) Out-Patient Physical Therapy Visit Information Visit Information Visit Type Treatment Note Visit Start Time 09:03 Visit Stop Time 09:48 Total Visit Minutes 45 Visit Number 4 PT-OP-B Current Condition Start: 09/06/23 11:34 Freq: Status: Active Protocol: Document 09/12/23 15:15 AM (Rec: 09/12/23 16:02 AM [id number]) Current Condition History of Current Condition Onset Date 07/22/23 Current Complaints R Lower leg pain from recent fracture History of Current Condition Pt fractured R tib-fib on . Pt had surgical repair on 07/23/23. Pt was TDWB, though now WBAT. Pt slipped on a step and fell. Pt had previous issue of R knee giving out on her. Pt reports that she had a fall 2 months prior. Prior Treatments and Tests Intramedullary nail PT-OP-C Subjective Start: 09/06/23 11:34 Freq: Status: Active Protocol: Document 09/20/23 09:03 AM (Rec: 09/20/23 09:59 AM [id number]) OP-PT Subjective Patient Comments Patient Comments Pt reports being sore today. Pt reports that she feels that she has been doing too much and trying to scale back. PT-OP-D Balance Start: 09/06/23 11:34 Freq: Status: Active Protocol: Document 09/06/23 11:35 AM (Rec: 09/06/23 13:05 AM [id number]) OP-PT Balance Assessment Standing Balance Static Standing Balance Ability Good Dynamic Standing Balance Ability Fair Device Used 4WW Balance Tests Single Limb Standing Single Limb- Right unable to stand on R LE Vargas Fall Scale Copyright Permission PT-OP-F Manual Assessment Start: 09/06/23 11:34 Freq: Status: Active Protocol: Document 09/06/23 11:35 AM (Rec: 09/06/23 13:05 AM [id number]) Manual Assessments Soft Tissue Assessment Soft Tissue Mobility Assessment Surgical incisions healed. Pt demonstrates ecchymosis at R lower leg and foot. Mild pitting edema. PT-OP-G Mobility & Gait Start: 09/06/23 11:34 Freq: Status: Active Protocol: Document 09/06/23 11:35 AM (Rec: 09/06/23 13:05 AM [id number]) OP Gait Assessment Gait Gait Assistance Required: Independent Able to Maintain Weight Bearing Status Yes During Gait Assistive Devices Assistive Device None,4 Wheeled Walker Gait Deviations General Gait Pattern Antalgic,Decreased Stride Length,Flexed Trunk Factors Limiting Gait Function Factors Limiting Gait Function Decreased Activity Tolerance, Decreased Strength,Limited Range of Motion,Pain Comments Gait Comments Difficulty achieving R knee extension, cues to decrease UT tension PT-OP-K Range of Motion Start: 09/06/23 11:34 Freq: Status: Active Protocol: Document 09/12/23 15:15 AM (Rec: 09/12/23 16:02 AM [id number]) Knee Goniometric Range of Motion Knee Right Flexion Active (degrees) 111 PT-OP-M Strength Start: 09/06/23 11:34 Freq: Status: Active Protocol: Document 09/06/23 11:35 AM (Rec: 09/06/23 13:05 AM [id number]) Hip Strength Hip Manual Muscle Testing Right Flexion (L2) 3+ Fair+ Extension (S1) 4- Good- Abduction 3+ Fair+ Adduction 4 Good Left Flexion (L2) 4+ Good+ Extension (S1) 4+ Good+ Abduction 4- Good- Adduction 4+ Good+ Knee Strength Knee Manual Muscle Testing Right Flexion (S2) 3 Fair Extension (L3) 3 Fair Comments Extensor lag with SLR Left Flexion (S2) 4 Good Extension (L3) 4+ Good+ Ankle/Foot Strength Ankle and Foot Manual Muscle Testing Right Dorsiflexion (L4) 3 Fair Plantarflexion (S1) 3+ Fair+ Inversion 3 Fair Eversion (S1) 3 Fair Left Dorsiflexion (L4) 5 Normal Plantarflexion (S1) 5 Normal Inversion 5 Normal Eversion (S1) 5 Normal PT-OP-Q Treatments Start: 09/06/23 11:34 Freq: Status: Active Protocol: Document 09/20/23 09:03 AM (Rec: 09/20/23 09:59 AM [id number]) Cardio Equipment Recumbent Elliptical ([employer]) Duration (Minutes) 5 Resistance 1 Seat Position 5 Therapeutic Exercises Supine Exercises SLR Side right Reps/Minutes 2x10 Comments cues for TKE SAQ Side right Equipment Used blue foam Reps/Minutes 2x15 Ankle pump Supine Exercise Name resisted DF and PF Side right Resistance [place] TB Reps/Minutes 2x10 Sitting Exercises LAQ Sitting Exercise Name LAQ Side right Reps/Minutes x15 Comments added to hEP Manual Therapy Treatment Soft Tissue Mobilization R LE Body Location MLD at lower leg, STM at quad, ITB Mobilization Type Manual Lymphatic Drainage, Myofascial Release Intensity/Depth Superficial Body Position supine with bolster under LE PT-OP-T Assessment and Plan Start: 09/06/23 11:34 Freq: Status: Active Protocol: Document 09/20/23 09:03 AM (Rec: 09/20/23 09:59 AM [id number]) Physical Therapy Assessment Goals Walking Impairment Pt able to walk 5-6 min before need to sit at IE. Short Term Goal (STG) Pt able to ambulate 15 min before need to sit. STG Duration 10/11/23 Commissions Analyst Goal (LTG) Pt able to ambulate 30 min before need to sit. LTG Duration 11/15/23 ROM Impairment Pt with limitations at R knee and ankle ROM. Chcf Goal (LTG) Pt with R knee and ankle ROM that is WFL. LTG Duration 11/15/23 Gait Impairment Pt ambulating with 4WW. Short Term Goal (STG) Pt able to ambulate safely with SPC. STG Duration 10/11/23 Commissions Analyst Goal (LTG) Pt able to ambulate safely without AD. LTG Duration 11/15/23 LEFS Impairment Pt with score of 12/80 on LEFS at IE Short Term Goal (STG) Pt with score of 35/80 STG Duration 10/11/23 Commissions Analyst Goal (LTG) Pt with score of 45/80 on LEFS LTG Duration 11/15/23 Strength Impairment Pt with 3/5 to 3+/5 R LE strength grossly. Short Term Goal (STG) Pt with 4-/5 to 4/5 R LE strength grossly. STG Duration 10/11/23 Commissions Analyst Goal (LTG) Pt with 4+/5 to 5/5 R LE strength grossly. Pain Impairment Pt with 9/10 at worst at IE. Short Term Goal (STG) Pt to report pain at 6/10 at the worst. STG Duration 10/11/23 Commissions Analyst Goal (LTG) Pt to report that pain is <1/ 10 at the worst. LTG Duration 11/15/23 Assessment Summary Assessment Pt presented with increased symptoms today. Pt tolerated unloaded exercises without increase in symptoms. Pt with minimal tenderness with STM. Resisted DF/PF added to HEP. Pt will benefit from continud PT to improve R LE strength and mobility as tolerated. Physical Therapy Plan Frequency and Duration Frequency of Treatment 2x/Week Duration of treatment (weeks) 10 Plan of Care Start Date 09/06/23 Plan of Care End Date 11/15/23 Therapeutic Interventions Therapeutic Interventions Balance Training,Coordination Training,Gait Training,Home Exercise Program,Joint Mobilizations,Manual Therapy, Neuromuscular Re-education, Patient/Caregiver Education, Self-Care/Home Management,Soft Tissue Mobilization,Taping, Therapeutic Activities, Therapeutic Exercises Modalities Cold Pack/Ice Massage,Electric Stimulation,Hot Packs, Ultrasound Next Visit Focus/Plan Next Note Type Treatment Note Next Visit Plan progress R LE strength and mobility, progress HEP
--- NOTE | 2023-09-27 14:20 | PT.OTN ---
Current Diagnoses Displaced spiral fracture of shaft of right tibia, subsequent encounter for closed fracture with routine healing (09/27/23) Physical Therapy Treatment Note PT-OP-A Visit Information Start: 09/06/23 11:34 Freq: Status: Active Protocol: Document 09/27/23 14:20 AM (Rec: 09/27/23 16:39 AM [id number]) Out-Patient Physical Therapy Visit Information Visit Information Visit Type Treatment Note Visit Start Time 14:20 Visit Stop Time 15:05 Total Visit Minutes 45 Visit Number 5 PT-OP-B Current Condition Start: 09/06/23 11:34 Freq: Status: Active Protocol: Document 09/27/23 14:20 AM (Rec: 09/27/23 16:39 AM [id number]) Current Condition History of Current Condition Onset Date 07/22/23 Current Complaints R Lower leg pain from recent fracture History of Current Condition Pt fractured R tib-fib on . Pt had surgical repair on 07/23/23. Pt was TDWB, though now WBAT. Pt slipped on a step and fell. Pt had previous issue of R knee giving out on her. Pt reports that she had a fall 2 months prior. Prior Treatments and Tests Intramedullary nail PT-OP-C Subjective Start: 09/06/23 11:34 Freq: Status: Active Protocol: Document 09/27/23 14:20 AM (Rec: 09/27/23 16:39 AM [id number]) OP-PT Subjective Patient Comments Patient Comments Pt reports that she slipped getting into her bed and hurt her R knee and ankle. Pt reports that she continues to be frustrated with activity tolerance. PT-OP-D Balance Start: 09/06/23 11:34 Freq: Status: Active Protocol: Document 09/06/23 11:35 AM (Rec: 09/06/23 13:05 AM [id number]) OP-PT Balance Assessment Standing Balance Static Standing Balance Ability Good Dynamic Standing Balance Ability Fair Device Used 4WW Balance Tests Single Limb Standing Single Limb- Right unable to stand on R LE Vargas Fall Scale Copyright Permission PT-OP-F Manual Assessment Start: 09/06/23 11:34 Freq: Status: Active Protocol: Document 09/06/23 11:35 AM (Rec: 09/06/23 13:05 AM [id number]) Manual Assessments Soft Tissue Assessment Soft Tissue Mobility Assessment Surgical incisions healed. Pt demonstrates ecchymosis at R lower leg and foot. Mild pitting edema. PT-OP-G Mobility & Gait Start: 09/06/23 11:34 Freq: Status: Active Protocol: Document 09/06/23 11:35 AM (Rec: 09/06/23 13:05 AM [id number]) OP Gait Assessment Gait Gait Assistance Required: Independent Able to Maintain Weight Bearing Status Yes During Gait Assistive Devices Assistive Device None,4 Wheeled Walker Gait Deviations General Gait Pattern Antalgic,Decreased Stride Length,Flexed Trunk Factors Limiting Gait Function Factors Limiting Gait Function Decreased Activity Tolerance, Decreased Strength,Limited Range of Motion,Pain Comments Gait Comments Difficulty achieving R knee extension, cues to decrease UT tension PT-OP-K Range of Motion Start: 09/06/23 11:34 Freq: Status: Active Protocol: Document 09/27/23 14:20 AM (Rec: 09/27/23 16:39 AM [id number]) Ankle and Foot Goniometric Range of Motion Ankle and Foot Right Active Dorsiflexion with Knee Extended 9 Plantarflexion 30 PT-OP-M Strength Start: 09/06/23 11:34 Freq: Status: Active Protocol: Document 09/06/23 11:35 AM (Rec: 09/06/23 13:05 AM [id number]) Hip Strength Hip Manual Muscle Testing Right Flexion (L2) 3+ Fair+ Extension (S1) 4- Good- Abduction 3+ Fair+ Adduction 4 Good Left Flexion (L2) 4+ Good+ Extension (S1) 4+ Good+ Abduction 4- Good- Adduction 4+ Good+ Knee Strength Knee Manual Muscle Testing Right Flexion (S2) 3 Fair Extension (L3) 3 Fair Comments Extensor lag with SLR Left Flexion (S2) 4 Good Extension (L3) 4+ Good+ Ankle/Foot Strength Ankle and Foot Manual Muscle Testing Right Dorsiflexion (L4) 3 Fair Plantarflexion (S1) 3+ Fair+ Inversion 3 Fair Eversion (S1) 3 Fair Left Dorsiflexion (L4) 5 Normal Plantarflexion (S1) 5 Normal Inversion 5 Normal Eversion (S1) 5 Normal PT-OP-Q Treatments Start: 09/06/23 11:34 Freq: Status: Active Protocol: Document 09/27/23 14:20 AM (Rec: 09/27/23 16:39 AM [id number]) Therapeutic Exercises Supine Exercises SLR Side right Reps/Minutes 2x10 Comments cues for TKE Ankle pump Side right Resistance AROM only today Reps/Minutes 2x10 Sidelying Exercises sidelying SLR Side right Reps/Minutes x15 Clamshell Side right Reps/Minutes x15 Manual Therapy Treatment Soft Tissue Mobilization R LE Body Location MLD at lower leg, STM at quad, ITB Mobilization Type Manual Lymphatic Drainage, Myofascial Release Intensity/Depth Superficial Body Position supine with bolster under LE Manual Techniques Prone quad stretch Type R quad stretch Body Position Prone Reps/Duration 2x30 sec Self-Care/Home Management Treatment Education Patient Education Pain Management Other Education Energy conservation and pain management: Pt educated on importance of not trying to complete too many tasks at once. Break them up. Sit down for activities that can be done sitting a table with food prep. PT-OP-T Assessment and Plan Start: 09/06/23 11:34 Freq: Status: Active Protocol: Document 09/27/23 14:20 AM (Rec: 09/27/23 16:39 AM [id number]) Physical Therapy Assessment Goals Walking Impairment Pt able to walk 5-6 min before need to sit at IE. Short Term Goal (STG) Pt able to ambulate 15 min before need to sit. STG Duration 10/11/23 Skilled Nursing Goal (LTG) Pt able to ambulate 30 min before need to sit. LTG Duration 11/15/23 ROM Impairment Pt with limitations at R knee and ankle ROM. Senior Sales Operations Analyst Goal (LTG) Pt with R knee and ankle ROM that is WFL. LTG Duration 11/15/23 Gait Impairment Pt ambulating with 4WW. Short Term Goal (STG) Pt able to ambulate safely with SPC. STG Duration 10/11/23 Senior Sales Operations Analyst Goal (LTG) Pt able to ambulate safely without AD. LTG Duration 11/15/23 LEFS Impairment Pt with score of 12/80 on LEFS at IE Short Term Goal (STG) Pt with score of 35/80 STG Duration 10/11/23 Skilled Nursing Goal (LTG) Pt with score of 45/80 on LEFS LTG Duration 11/15/23 Strength Impairment Pt with 3/5 to 3+/5 R LE strength grossly. Short Term Goal (STG) Pt with 4-/5 to 4/5 R LE strength grossly. STG Duration 10/11/23 Senior Sales Operations Analyst Goal (LTG) Pt with 4+/5 to 5/5 R LE strength grossly. Pain Impairment Pt with 9/10 at worst at IE. Short Term Goal (STG) Pt to report pain at 6/10 at the worst. STG Duration 10/11/23 Skilled Nursing Goal (LTG) Pt to report that pain is <1/ 10 at the worst. LTG Duration 11/15/23 Assessment Summary Assessment Pt demonstrates improved ankle ROM since start of PT. Pt tolerated exercises well today without increase in symptoms. Pt demonstrates stiffness at quad and scar tissue restriction with knee flexion. Pt demonstrated improved knee flexion mobility following prone quad stretch. Pt with elevated c/o pain today, therefore had increased focus on MT. Pt will return to PT next week to continue to progress LE strength and mobility. Physical Therapy Plan Frequency and Duration Frequency of Treatment 2x/Week Duration of treatment (weeks) 10 Plan of Care Start Date 09/06/23 Plan of Care End Date 11/15/23 Therapeutic Interventions Therapeutic Interventions Balance Training,Coordination Training,Gait Training,Home Exercise Program,Joint Mobilizations,Manual Therapy, Neuromuscular Re-education, Patient/Caregiver Education, Self-Care/Home Management,Soft Tissue Mobilization,Taping, Therapeutic Activities, Therapeutic Exercises Modalities Cold Pack/Ice Massage,Electric Stimulation,Hot Packs, Ultrasound Next Visit Focus/Plan Next Note Type Treatment Note Next Visit Plan progress R LE strength and mobility, progress HEP
--- NOTE | 2023-10-01 10:38 | PT.OTN ---
Current Diagnoses Displaced spiral fracture of shaft of right tibia, subsequent encounter for closed fracture with routine healing (10/01/23) Physical Therapy Treatment Note PT-OP-A Visit Information Start: 09/06/23 11:34 Freq: Status: Active Protocol: Document 10/01/23 10:38 AM (Rec: 10/01/23 11:30 AM [id number]) Out-Patient Physical Therapy Visit Information Visit Information Visit Type Treatment Note Visit Start Time 10:38 Visit Stop Time 11:23 Total Visit Minutes 45 Visit Number 6 PT-OP-B Current Condition Start: 09/06/23 11:34 Freq: Status: Active Protocol: Document 09/27/23 14:20 AM (Rec: 09/27/23 16:39 AM [id number]) Current Condition History of Current Condition Onset Date 07/22/23 Current Complaints R Lower leg pain from recent fracture History of Current Condition Pt fractured R tib-fib on . Pt had surgical repair on 07/23/23. Pt was TDWB, though now WBAT. Pt slipped on a step and fell. Pt had previous issue of R knee giving out on her. Pt reports that she had a fall 2 months prior. Prior Treatments and Tests Intramedullary nail PT-OP-C Subjective Start: 09/06/23 11:34 Freq: Status: Active Protocol: Document 10/01/23 10:38 AM (Rec: 10/01/23 11:30 AM [id number]) OP-PT Subjective Patient Comments Patient Comments Pt reports that she is frustrated by the speed of healing process. Pt reports that she is able to stand for 5-10 min at a time. Pt reports that she continues to have discomfort at R LE and has difficulty with balance of not overdoing it. PT-OP-D Balance Start: 09/06/23 11:34 Freq: Status: Active Protocol: Document 09/06/23 11:35 AM (Rec: 09/06/23 13:05 AM [id number]) OP-PT Balance Assessment Standing Balance Static Standing Balance Ability Good Dynamic Standing Balance Ability Fair Device Used 4WW Balance Tests Single Limb Standing Single Limb- Right unable to stand on R LE Vargas Fall Scale Copyright Permission PT-OP-F Manual Assessment Start: 09/06/23 11:34 Freq: Status: Active Protocol: Document 09/06/23 11:35 AM (Rec: 09/06/23 13:05 AM [id number]) Manual Assessments Soft Tissue Assessment Soft Tissue Mobility Assessment Surgical incisions healed. Pt demonstrates ecchymosis at R lower leg and foot. Mild pitting edema. PT-OP-G Mobility & Gait Start: 09/06/23 11:34 Freq: Status: Active Protocol: Document 09/06/23 11:35 AM (Rec: 09/06/23 13:05 AM [id number]) OP Gait Assessment Gait Gait Assistance Required: Independent Able to Maintain Weight Bearing Status Yes During Gait Assistive Devices Assistive Device None,4 Wheeled Walker Gait Deviations General Gait Pattern Antalgic,Decreased Stride Length,Flexed Trunk Factors Limiting Gait Function Factors Limiting Gait Function Decreased Activity Tolerance, Decreased Strength,Limited Range of Motion,Pain Comments Gait Comments Difficulty achieving R knee extension, cues to decrease UT tension PT-OP-K Range of Motion Start: 09/06/23 11:34 Freq: Status: Active Protocol: Document 09/27/23 14:20 AM (Rec: 09/27/23 16:39 AM [id number]) Ankle and Foot Goniometric Range of Motion Ankle and Foot Right Active Dorsiflexion with Knee Extended 9 Plantarflexion 30 PT-OP-M Strength Start: 09/06/23 11:34 Freq: Status: Active Protocol: Document 09/06/23 11:35 AM (Rec: 09/06/23 13:05 AM [id number]) Hip Strength Hip Manual Muscle Testing Right Flexion (L2) 3+ Fair+ Extension (S1) 4- Good- Abduction 3+ Fair+ Adduction 4 Good Left Flexion (L2) 4+ Good+ Extension (S1) 4+ Good+ Abduction 4- Good- Adduction 4+ Good+ Knee Strength Knee Manual Muscle Testing Right Flexion (S2) 3 Fair Extension (L3) 3 Fair Comments Extensor lag with SLR Left Flexion (S2) 4 Good Extension (L3) 4+ Good+ Ankle/Foot Strength Ankle and Foot Manual Muscle Testing Right Dorsiflexion (L4) 3 Fair Plantarflexion (S1) 3+ Fair+ Inversion 3 Fair Eversion (S1) 3 Fair Left Dorsiflexion (L4) 5 Normal Plantarflexion (S1) 5 Normal Inversion 5 Normal Eversion (S1) 5 Normal PT-OP-Q Treatments Start: 09/06/23 11:34 Freq: Status: Active Protocol: Document 10/01/23 10:38 AM (Rec: 10/01/23 11:30 AM [id number]) Cardio Equipment Recumbent Elliptical (Biodex) Duration (Minutes) 5 Resistance 3 Seat Position 5 Gym Equipment Shuttle Recovery Bilateral squat Resistance 50# (2 navy) Shuttle Recovery Platform Stable Reps/Time 2x10 Therapeutic Exercises Sitting Exercises Calf stretch Sitting Exercise Name Long-sitting calf stretch Side right Equipment Used towel Reps/Minutes x1 min Standing Exercises Weight-shifting Standing Exercise Name Standing weight-shifting to R LE Equipment Used railing sidesteps Side bilateral Equipment Used railing Reps/Minutes 2x20 ft Hip extension Side right Equipment Used railing Reps/Minutes x10 Comments cues for trunk stab Hip abduction Side right Equipment Used railing Reps/Minutes x10 Comments cues for trunk stab Manual Therapy Treatment Soft Tissue Mobilization R LE Body Location STM at quad, ITB, gastroc, ant tib Mobilization Type Manual Lymphatic Drainage, Myofascial Release Intensity/Depth Moderate Body Position supine with bolster under LE Manual Techniques Prone quad stretch Type Manual R knee flexion stretch Body Position Supine Reps/Duration 2x30 sec PT-OP-T Assessment and Plan Start: 09/06/23 11:34 Freq: Status: Active Protocol: Document 10/01/23 10:38 AM (Rec: 10/01/23 11:30 AM [id number]) Physical Therapy Assessment Goals Walking Impairment Pt able to walk 5-6 min before need to sit at IE. Short Term Goal (STG) Pt able to ambulate 15 min before need to sit. STG Duration 10/11/23 Senior Care Goal (LTG) Pt able to ambulate 30 min before need to sit. LTG Duration 11/15/23 ROM Impairment Pt with limitations at R knee and ankle ROM. Disability Benefits Specialist Goal (LTG) Pt with R knee and ankle ROM that is WFL. LTG Duration 11/15/23 Gait Impairment Pt ambulating with 4WW. Short Term Goal (STG) Pt able to ambulate safely with SPC. STG Duration 10/11/23 Disability Benefits Specialist Goal (LTG) Pt able to ambulate safely without AD. LTG Duration 11/15/23 LEFS Impairment Pt with score of 12/80 on LEFS at IE Short Term Goal (STG) Pt with score of 35/80 STG Duration 10/11/23 Senior Care Goal (LTG) Pt with score of 45/80 on LEFS LTG Duration 11/15/23 Strength Impairment Pt with 3/5 to 3+/5 R LE strength grossly. Short Term Goal (STG) Pt with 4-/5 to 4/5 R LE strength grossly. STG Duration 10/11/23 Disability Benefits Specialist Goal (LTG) Pt with 4+/5 to 5/5 R LE strength grossly. Pain Impairment Pt with 9/10 at worst at IE. Short Term Goal (STG) Pt to report pain at 6/10 at the worst. STG Duration 10/11/23 Senior Care Goal (LTG) Pt to report that pain is <1/ 10 at the worst. LTG Duration 11/15/23 Assessment Summary Assessment Pt with reported decrease in symptoms following tx session today. Pt demonstrates improving tolerance to longer stance time with weight shift on to R LE. Pt demonstrates improving knee flexion mobility with manual knee flexion stretch. Pt continues to demonstrate antalgic gait pattern on R with asymmetrical gait pattern. Pt would benefit from continued PT to progress R LE functional strength and mobility to improve tolerance to gait and functional activities. Physical Therapy Plan Frequency and Duration Frequency of Treatment 2x/Week Duration of treatment (weeks) 10 Plan of Care Start Date 09/06/23 Plan of Care End Date 11/15/23 Therapeutic Interventions Therapeutic Interventions Balance Training,Coordination Training,Gait Training,Home Exercise Program,Joint Mobilizations,Manual Therapy, Neuromuscular Re-education, Patient/Caregiver Education, Self-Care/Home Management,Soft Tissue Mobilization,Taping, Therapeutic Activities, Therapeutic Exercises Modalities Cold Pack/Ice Massage,Electric Stimulation,Hot Packs, Ultrasound Next Visit Focus/Plan Next Note Type Treatment Note Next Visit Plan progress R LE strength and mobility, progress HEP
--- NOTE | 2023-10-07 11:32 | PT.OTN ---
Current Diagnoses Displaced spiral fracture of shaft of right tibia, subsequent encounter for closed fracture with routine healing (10/07/23) Physical Therapy Treatment Note PT-OP-A Visit Information Start: 09/06/23 11:34 Freq: Status: Active Protocol: Document 10/07/23 11:32 AM (Rec: 10/07/23 14:17 AM [id number]) Out-Patient Physical Therapy Visit Information Visit Information Visit Type Treatment Note Visit Start Time 11:33 Visit Stop Time 12:15 Total Visit Minutes 42 Visit Number 7 PT-OP-B Current Condition Start: 09/06/23 11:34 Freq: Status: Active Protocol: Document 09/27/23 14:20 AM (Rec: 09/27/23 16:39 AM [id number]) Current Condition History of Current Condition Onset Date 07/22/23 Current Complaints R Lower leg pain from recent fracture History of Current Condition Pt fractured R tib-fib on . Pt had surgical repair on 07/23/23. Pt was TDWB, though now WBAT. Pt slipped on a step and fell. Pt had previous issue of R knee giving out on her. Pt reports that she had a fall 2 months prior. Prior Treatments and Tests Intramedullary nail PT-OP-C Subjective Start: 09/06/23 11:34 Freq: Status: Active Protocol: Document 10/07/23 11:32 AM (Rec: 10/07/23 14:17 AM [id number]) OP-PT Subjective Patient Comments Patient Comments Pt reports that she had to cancel last session because she became lightheaded and nauseous after taking a shower . Pt reports that she tends to spend a lot of time in bed or sitting because her is worried that she will overdo it. Pt reports that she has been using her SPC at home some, but mostly uses 4WW . Patient Questionnaires Lower Extremity Functional Scale LEFS Score 19 LEFS Impairment 1 to 19% Impaired (Score 63-79 ) PT-OP-D Balance Start: 09/06/23 11:34 Freq: Status: Active Protocol: Document 09/06/23 11:35 AM (Rec: 09/06/23 13:05 AM [id number]) OP-PT Balance Assessment Standing Balance Static Standing Balance Ability Good Dynamic Standing Balance Ability Fair Device Used 4WW Balance Tests Single Limb Standing Single Limb- Right unable to stand on R LE Vargas Fall Scale Copyright Permission PT-OP-F Manual Assessment Start: 09/06/23 11:34 Freq: Status: Active Protocol: Document 09/06/23 11:35 AM (Rec: 09/06/23 13:05 AM [id number]) Manual Assessments Soft Tissue Assessment Soft Tissue Mobility Assessment Surgical incisions healed. Pt demonstrates ecchymosis at R lower leg and foot. Mild pitting edema. PT-OP-G Mobility & Gait Start: 09/06/23 11:34 Freq: Status: Active Protocol: Document 09/06/23 11:35 AM (Rec: 09/06/23 13:05 AM [id number]) OP Gait Assessment Gait Gait Assistance Required: Independent Able to Maintain Weight Bearing Status Yes During Gait Assistive Devices Assistive Device None,4 Wheeled Walker Gait Deviations General Gait Pattern Antalgic,Decreased Stride Length,Flexed Trunk Factors Limiting Gait Function Factors Limiting Gait Function Decreased Activity Tolerance, Decreased Strength,Limited Range of Motion,Pain Comments Gait Comments Difficulty achieving R knee extension, cues to decrease UT tension PT-OP-K Range of Motion Start: 09/06/23 11:34 Freq: Status: Active Protocol: Document 10/07/23 11:32 AM (Rec: 10/07/23 14:17 AM [id number]) Knee Goniometric Range of Motion Knee Right Flexion Active (degrees) 119 Extension Active (degrees) 3 Ankle and Foot Goniometric Range of Motion Ankle and Foot Right Active Dorsiflexion with Knee Extended 8 Plantarflexion 35 Inversion 25 Eversion 8 PT-OP-M Strength Start: 09/06/23 11:34 Freq: Status: Active Protocol: Document 10/07/23 11:32 AM (Rec: 10/07/23 14:17 AM [id number]) Hip Strength Hip Manual Muscle Testing Right Flexion (L2) 4- Good- Abduction 4- Good- Adduction 4 Good Knee Strength Knee Manual Muscle Testing Right Flexion (S2) 4- Good- Extension (L3) 3+ Fair+ Ankle/Foot Strength Ankle and Foot Manual Muscle Testing Right Dorsiflexion (L4) 4- Good- Plantarflexion (S1) 3+ Fair+ Inversion 3+ Fair+ Eversion (S1) 3+ Fair+ PT-OP-Q Treatments Start: 09/06/23 11:34 Freq: Status: Active Protocol: Document 10/07/23 11:32 AM (Rec: 10/07/23 14:17 AM [id number]) Cardio Equipment Recumbent Elliptical (Biodex) Duration (Minutes) 5 Resistance 3 Seat Position 5 Gym Equipment Shuttle Recovery Unilateral squat Resistance 25# (1 navy) Reps/Time 2x10 Bilateral squat Resistance 50# (2 navy) Shuttle Recovery Platform Stable Reps/Time 2x15 Gait Training Gait Activity SPC Treatment Focus To improve gait pattern Comments Gait training with SPC with gait belt and CGA PT-OP-T Assessment and Plan Start: 09/06/23 11:34 Freq: Status: Active Protocol: Document 10/07/23 11:32 AM (Rec: 10/07/23 14:17 AM [id number]) Physical Therapy Assessment Goals Walking Impairment Pt able to walk 5-6 min before need to sit at IE. Short Term Goal (STG) Pt able to ambulate 15 min before need to sit. 10/07/23: Progressing towards goal. Pt reports that she is able to walk for 10 min at a time before she needs to sit. STG Duration 10/11/23 Mcc Goal (LTG) Pt able to ambulate 30 min before need to sit. LTG Duration 11/15/23 ROM Impairment Pt with limitations at R knee and ankle ROM. Life Scientist Goal (LTG) Pt with R knee and ankle ROM that is WFL. LTG Duration 11/15/23 Gait Impairment Pt ambulating with 4WW. Short Term Goal (STG) Pt able to ambulate safely with SPC. 10/07/23: Pt ambulating with 4WW in the community. Pt is using the cane in the house some. Pt able to ambulate in the clinic with SPC and CGA. STG Duration 10/11/23 Life Scientist Goal (LTG) Pt able to ambulate safely without AD. LTG Duration 11/15/23 LEFS Impairment Pt with score of 12/80 on LEFS at IE Short Term Goal (STG) Pt with score of 35/80 10/07/23: Pt with gradual progression with score of 19/ 80. STG Duration 10/11/23 Life Scientist Goal (LTG) Pt with score of 45/80 on LEFS LTG Duration 11/15/23 Strength Impairment Pt with 3/5 to 3+/5 R LE strength grossly. Short Term Goal (STG) Pt with 4-/5 to 4/5 R LE strength grossly. : Pt with improved strength compared to IE, progressing towards goal STG Duration 10/11/23 Mcc Goal (LTG) Pt with 4+/5 to 5/5 R LE strength grossly. Pain Impairment Pt with 9/10 at worst at IE. Short Term Goal (STG) Pt to report pain at 6/10 at the worst. 10/07/23: Pt reports 5/10 at the worst the last few days. STG Duration 10/11/23-Goal met Life Scientist Goal (LTG) Pt to report that pain is <1/ 10 at the worst. LTG Duration 11/15/23 Progress Towards Goals Progress Towards Goals Slow Progress due to Activity Tolerance Assessment Summary Assessment Pt demonstrated 1 LOB with ambulating with SPC with CGA, self-corrected. Pt educated on the importance of progressing activity at home regarding ambulating time and strengthening through HEP, though to respect pain. Pt demonstrates improved ankle and knee mobility compared to IE. Pt with decreasing overall pain ratings. Pt would benefit from continued PT to progress LE strength grossly for improved tolerance to higher level functional activities. Physical Therapy Plan Frequency and Duration Frequency of Treatment 2x/Week Duration of treatment (weeks) 10 Plan of Care Start Date 09/06/23 Plan of Care End Date 11/15/23 Therapeutic Interventions Therapeutic Interventions Balance Training,Coordination Training,Gait Training,Home Exercise Program,Joint Mobilizations,Manual Therapy, Neuromuscular Re-education, Patient/Caregiver Education, Self-Care/Home Management,Soft Tissue Mobilization,Taping, Therapeutic Activities, Therapeutic Exercises Modalities Cold Pack/Ice Massage,Electric Stimulation,Hot Packs, Ultrasound Next Visit Focus/Plan Next Note Type Treatment Note Next Visit Plan progress R LE strength and mobility, progress HEP
--- NOTE | 2023-10-16 11:18 | PT.OTN ---
Current Diagnoses Displaced spiral fracture of shaft of right tibia, subsequent encounter for closed fracture with routine healing (10/16/23) Physical Therapy Treatment Note PT-OP-A Visit Information Start: 09/06/23 11:34 Freq: Status: Active Protocol: Document 10/16/23 10:30 DCW (Rec: 10/16/23 11:17 DCW [id number]) Out-Patient Physical Therapy Visit Information Visit Information Visit Type Treatment Note Visit Start Time 10:30 Visit Stop Time 11:15 Total Visit Minutes 45 Visit Number 8 Evaluation Information Evaluation Date 09/06/23 PT-OP-B Current Condition Start: 09/06/23 11:34 Freq: Status: Active Protocol: Document 09/27/23 14:20 AM (Rec: 09/27/23 16:39 AM [id number]) Current Condition History of Current Condition Onset Date 07/22/23 Current Complaints R Lower leg pain from recent fracture History of Current Condition Pt fractured R tib-fib on . Pt had surgical repair on 07/23/23. Pt was TDWB, though now WBAT. Pt slipped on a step and fell. Pt had previous issue of R knee giving out on her. Pt reports that she had a fall 2 months prior. Prior Treatments and Tests Intramedullary nail PT-OP-C Subjective Start: 09/06/23 11:34 Freq: Status: Active Protocol: Document 10/16/23 10:30 DCW (Rec: 10/16/23 11:17 DCW [id number]) OP-PT Subjective Patient Comments Patient Comments Pt notes her knee has been really bothering her, she got an x-ray and was told she has mild arthritis. PT-OP-D Balance Start: 09/06/23 11:34 Freq: Status: Active Protocol: Document 09/06/23 11:35 AM (Rec: 09/06/23 13:05 AM [id number]) OP-PT Balance Assessment Standing Balance Static Standing Balance Ability Good Dynamic Standing Balance Ability Fair Device Used 4WW Balance Tests Single Limb Standing Single Limb- Right unable to stand on R LE Vargas Fall Scale Copyright Permission PT-OP-F Manual Assessment Start: 09/06/23 11:34 Freq: Status: Active Protocol: Document 09/06/23 11:35 AM (Rec: 09/06/23 13:05 AM [id number]) Manual Assessments Soft Tissue Assessment Soft Tissue Mobility Assessment Surgical incisions healed. Pt demonstrates ecchymosis at R lower leg and foot. Mild pitting edema. PT-OP-G Mobility & Gait Start: 09/06/23 11:34 Freq: Status: Active Protocol: Document 09/06/23 11:35 AM (Rec: 09/06/23 13:05 AM [id number]) OP Gait Assessment Gait Gait Assistance Required: Independent Able to Maintain Weight Bearing Status Yes During Gait Assistive Devices Assistive Device None,4 Wheeled Walker Gait Deviations General Gait Pattern Antalgic,Decreased Stride Length,Flexed Trunk Factors Limiting Gait Function Factors Limiting Gait Function Decreased Activity Tolerance, Decreased Strength,Limited Range of Motion,Pain Comments Gait Comments Difficulty achieving R knee extension, cues to decrease UT tension PT-OP-K Range of Motion Start: 09/06/23 11:34 Freq: Status: Active Protocol: Document 10/07/23 11:32 AM (Rec: 10/07/23 14:17 AM [id number]) Knee Goniometric Range of Motion Knee Right Flexion Active (degrees) 119 Extension Active (degrees) 3 Ankle and Foot Goniometric Range of Motion Ankle and Foot Right Active Dorsiflexion with Knee Extended 8 Plantarflexion 35 Inversion 25 Eversion 8 PT-OP-M Strength Start: 09/06/23 11:34 Freq: Status: Active Protocol: Document 10/07/23 11:32 AM (Rec: 10/07/23 14:17 AM [id number]) Hip Strength Hip Manual Muscle Testing Right Flexion (L2) 4- Good- Abduction 4- Good- Adduction 4 Good Knee Strength Knee Manual Muscle Testing Right Flexion (S2) 4- Good- Extension (L3) 3+ Fair+ Ankle/Foot Strength Ankle and Foot Manual Muscle Testing Right Dorsiflexion (L4) 4- Good- Plantarflexion (S1) 3+ Fair+ Inversion 3+ Fair+ Eversion (S1) 3+ Fair+ PT-OP-Q Treatments Start: 09/06/23 11:34 Freq: Status: Active Protocol: Document 10/16/23 10:30 DCW (Rec: 10/16/23 11:17 DCW [id number]) Cardio Equipment Recumbent Elliptical ([place]) Duration (Minutes) 5 Resistance 3 Seat Position 5 Gym Equipment Shuttle Recovery Bilateral Heel Raises Resistance 25# (1 navy) Unilateral squat Resistance 25# (1 navy) Reps/Time x15 Bilateral squat Resistance 50# (2 navy) Shuttle Recovery Platform Stable Reps/Time x20 Therapeutic Exercises Sitting Exercises BAPS Sitting Exercise Name BAPS Side right Resistance Lv 3 Comments DF/PF, Inv/Ev, CW/CCW Manual Therapy Treatment Other Other Manual Treatments Therapist-driven PROM of R ankle PT-OP-T Assessment and Plan Start: 09/06/23 11:34 Freq: Status: Active Protocol: Document 10/16/23 10:30 DCW (Rec: 10/16/23 11:17 DCW [id number]) Physical Therapy Assessment Goals Walking Impairment Pt able to walk 5-6 min before need to sit at IE. Short Term Goal (STG) Pt able to ambulate 15 min before need to sit. 10/07/23: Progressing towards goal. Pt reports that she is able to walk for 10 min at a time before she needs to sit. STG Duration 10/11/23 Seasonal Recruiter Goal (LTG) Pt able to ambulate 30 min before need to sit. LTG Duration 11/15/23 ROM Impairment Pt with limitations at R knee and ankle ROM. Seasonal Recruiter Goal (LTG) Pt with R knee and ankle ROM that is WFL. LTG Duration 11/15/23 Gait Impairment Pt ambulating with 4WW. Short Term Goal (STG) Pt able to ambulate safely with SPC. 10/07/23: Pt ambulating with 4WW in the community. Pt is using the cane in the house some. Pt able to ambulate in the clinic with SPC and CGA. STG Duration 10/11/23 Fdc Goal (LTG) Pt able to ambulate safely without AD. LTG Duration 11/15/23 LEFS Impairment Pt with score of 12/80 on LEFS at IE Short Term Goal (STG) Pt with score of 35/80 10/07/23: Pt with gradual progression with score of 19/ 80. STG Duration 10/11/23 Seasonal Recruiter Goal (LTG) Pt with score of 45/80 on LEFS LTG Duration 11/15/23 Strength Impairment Pt with 3/5 to 3+/5 R LE strength grossly. Short Term Goal (STG) Pt with 4-/5 to 4/5 R LE strength grossly. 11/20/we: Pt with improved strength compared to IE, progressing towards goal STG Duration 10/11/23 Fdc Goal (LTG) Pt with 4+/5 to 5/5 R LE strength grossly. Pain Impairment Pt with 9/10 at worst at IE. Short Term Goal (STG) Pt to report pain at 6/10 at the worst. 10/07/23: Pt reports 5/10 at the worst the last few days. STG Duration 10/11/23-Goal met Fdc Goal (LTG) Pt to report that pain is <1/ 10 at the worst. LTG Duration 11/15/23 Assessment Summary Assessment Very good response to treatment today, tolerated BAPS and therapist PROM very well. Improving gait with decreasing reliance on UE support. Physical Therapy Plan Frequency and Duration Frequency of Treatment 2x/Week Duration of treatment (weeks) 10 Plan of Care Start Date 09/06/23 Plan of Care End Date 11/15/23 Therapeutic Interventions Therapeutic Interventions Balance Training,Coordination Training,Gait Training,Home Exercise Program,Joint Mobilizations,Manual Therapy, Neuromuscular Re-education, Patient/Caregiver Education, Self-Care/Home Management,Soft Tissue Mobilization,Taping, Therapeutic Activities, Therapeutic Exercises Modalities Cold Pack/Ice Massage,Electric Stimulation,Hot Packs, Ultrasound Next Visit Focus/Plan Next Note Type Treatment Note Next Visit Plan progress R LE strength and mobility, progress HEP
--- NOTE | 2023-10-18 11:14 | PT.OTN ---
Current Diagnoses Displaced spiral fracture of shaft of right tibia, subsequent encounter for closed fracture with routine healing (10/18/23) Physical Therapy Treatment Note PT-OP-A Visit Information Start: 09/06/23 11:34 Freq: Status: Active Protocol: Document 10/18/23 10:30 DCW (Rec: 10/18/23 11:14 DCW [id number]) Out-Patient Physical Therapy Visit Information Visit Information Visit Type Treatment Note Visit Start Time 10:30 Visit Stop Time 11:15 Total Visit Minutes 45 Visit Number 9 Number of WARRANTY COORDINATOR Visits 0 Evaluation Information Evaluation Date 09/06/23 PT-OP-B Current Condition Start: 09/06/23 11:34 Freq: Status: Active Protocol: Document 09/27/23 14:20 AM (Rec: 09/27/23 16:39 AM [id number]) Current Condition History of Current Condition Onset Date 07/22/23 Current Complaints R Lower leg pain from recent fracture History of Current Condition Pt fractured R tib-fib on . Pt had surgical repair on 07/23/23. Pt was TDWB, though now WBAT. Pt slipped on a step and fell. Pt had previous issue of R knee giving out on her. Pt reports that she had a fall 2 months prior. Prior Treatments and Tests Intramedullary nail PT-OP-C Subjective Start: 09/06/23 11:34 Freq: Status: Active Protocol: Document 10/18/23 10:30 DCW (Rec: 10/18/23 11:14 DCW [id number]) OP-PT Subjective Patient Comments Patient Comments Pt reports she spent most of yesterday in bed due to severe knee pain, but she is drugged up today, and able to get up and move around a little better. PT-OP-D Balance Start: 09/06/23 11:34 Freq: Status: Active Protocol: Document 09/06/23 11:35 AM (Rec: 09/06/23 13:05 AM [id number]) OP-PT Balance Assessment Standing Balance Static Standing Balance Ability Good Dynamic Standing Balance Ability Fair Device Used 4WW Balance Tests Single Limb Standing Single Limb- Right unable to stand on R LE Vargas Fall Scale Copyright Permission PT-OP-F Manual Assessment Start: 09/06/23 11:34 Freq: Status: Active Protocol: Document 09/06/23 11:35 AM (Rec: 09/06/23 13:05 AM [id number]) Manual Assessments Soft Tissue Assessment Soft Tissue Mobility Assessment Surgical incisions healed. Pt demonstrates ecchymosis at R lower leg and foot. Mild pitting edema. PT-OP-G Mobility & Gait Start: 09/06/23 11:34 Freq: Status: Active Protocol: Document 09/06/23 11:35 AM (Rec: 09/06/23 13:05 AM [id number]) OP Gait Assessment Gait Gait Assistance Required: Independent Able to Maintain Weight Bearing Status Yes During Gait Assistive Devices Assistive Device None,4 Wheeled Walker Gait Deviations General Gait Pattern Antalgic,Decreased Stride Length,Flexed Trunk Factors Limiting Gait Function Factors Limiting Gait Function Decreased Activity Tolerance, Decreased Strength,Limited Range of Motion,Pain Comments Gait Comments Difficulty achieving R knee extension, cues to decrease UT tension PT-OP-K Range of Motion Start: 09/06/23 11:34 Freq: Status: Active Protocol: Document 10/07/23 11:32 AM (Rec: 10/07/23 14:17 AM [id number]) Knee Goniometric Range of Motion Knee Right Flexion Active (degrees) 119 Extension Active (degrees) 3 Ankle and Foot Goniometric Range of Motion Ankle and Foot Right Active Dorsiflexion with Knee Extended 8 Plantarflexion 35 Inversion 25 Eversion 8 PT-OP-M Strength Start: 09/06/23 11:34 Freq: Status: Active Protocol: Document 10/07/23 11:32 AM (Rec: 10/07/23 14:17 AM [id number]) Hip Strength Hip Manual Muscle Testing Right Flexion (L2) 4- Good- Abduction 4- Good- Adduction 4 Good Knee Strength Knee Manual Muscle Testing Right Flexion (S2) 4- Good- Extension (L3) 3+ Fair+ Ankle/Foot Strength Ankle and Foot Manual Muscle Testing Right Dorsiflexion (L4) 4- Good- Plantarflexion (S1) 3+ Fair+ Inversion 3+ Fair+ Eversion (S1) 3+ Fair+ PT-OP-Q Treatments Start: 09/06/23 11:34 Freq: Status: Active Protocol: Document 10/18/23 10:30 DCW (Rec: 10/18/23 11:14 DCW [id number]) Cardio Equipment Recumbent Elliptical ([place]) Duration (Minutes) 5 Resistance 5 Seat Position 5 Therapeutic Exercises Sitting Exercises BAPS Sitting Exercise Name BAPS (switched to standing) Side right Resistance Lv 3 Comments DF/PF, Inv/Ev, CW/CCW Standing Exercises Step-ups Standing Exercise Name Step-ups Side bilateral Equipment Used 6 step Manual Therapy Treatment Joint Mobilizations Right Knee Joint R knee Direction P<->A Grade III Body Position Sitting Other Other Manual Treatments Therapist-driven PROM of R ankle Neuro Re-Education Treatment Balance Activities SLS Details SLS Surface Blue Foam Balance Board Details Lateral weight shift, DF/PF Surface Wooden balance board PT-OP-T Assessment and Plan Start: 09/06/23 11:34 Freq: Status: Active Protocol: Document 10/18/23 10:30 DCW (Rec: 10/18/23 11:14 DCW [id number]) Physical Therapy Assessment Goals Walking Impairment Pt able to walk 5-6 min before need to sit at IE. Short Term Goal (STG) Pt able to ambulate 15 min before need to sit. 10/07/23: Progressing towards goal. Pt reports that she is able to walk for 10 min at a time before she needs to sit. STG Duration 10/11/23 Assisted Goal (LTG) Pt able to ambulate 30 min before need to sit. LTG Duration 11/15/23 ROM Impairment Pt with limitations at R knee and ankle ROM. Juice Tester Goal (LTG) Pt with R knee and ankle ROM that is WFL. LTG Duration 11/15/23 Gait Impairment Pt ambulating with 4WW. Short Term Goal (STG) Pt able to ambulate safely with SPC. 10/07/23: Pt ambulating with 4WW in the community. Pt is using the cane in the house some. Pt able to ambulate in the clinic with SPC and CGA. STG Duration 10/11/23 Juice Tester Goal (LTG) Pt able to ambulate safely without AD. LTG Duration 11/15/23 LEFS Impairment Pt with score of 12/80 on LEFS at IE Short Term Goal (STG) Pt with score of 35/80 10/07/23: Pt with gradual progression with score of 19/ 80. STG Duration 10/11/23 Juice Tester Goal (LTG) Pt with score of 45/80 on LEFS LTG Duration 11/15/23 Strength Impairment Pt with 3/5 to 3+/5 R LE strength grossly. Short Term Goal (STG) Pt with 4-/5 to 4/5 R LE strength grossly. : Pt with improved strength compared to IE, progressing towards goal STG Duration 10/11/23 Assisted Goal (LTG) Pt with 4+/5 to 5/5 R LE strength grossly. Pain Impairment Pt with 9/10 at worst at IE. Short Term Goal (STG) Pt to report pain at 6/10 at the worst. 10/07/23: Pt reports 5/10 at the worst the last few days. STG Duration 10/11/23-Goal met Juice Tester Goal (LTG) Pt to report that pain is <1/ 10 at the worst. LTG Duration 11/15/23 Assessment Summary Assessment Good response to new challenging activities. Able to fully weight-bear through right leg on tilt board and during SLS. Improved confidence in ability to support her body weight through right leg. Physical Therapy Plan Frequency and Duration Frequency of Treatment 2x/Week Duration of treatment (weeks) 10 Plan of Care Start Date 09/06/23 Plan of Care End Date 11/15/23 Therapeutic Interventions Therapeutic Interventions Balance Training,Coordination Training,Gait Training,Home Exercise Program,Joint Mobilizations,Manual Therapy, Neuromuscular Re-education, Patient/Caregiver Education, Self-Care/Home Management,Soft Tissue Mobilization,Taping, Therapeutic Activities, Therapeutic Exercises Modalities Cold Pack/Ice Massage,Electric Stimulation,Hot Packs, Ultrasound Next Visit Focus/Plan Next Note Type Treatment Note Next Visit Plan progress R LE strength and mobility, progress HEP
--- NOTE | 2023-10-23 10:31 | PT.OTN ---
Current Diagnoses Displaced spiral fracture of shaft of right tibia, subsequent encounter for closed fracture with routine healing (10/23/23) Physical Therapy Treatment Note PT-OP-A Visit Information Start: 09/06/23 11:34 Freq: Status: Active Protocol: Document 10/23/23 09:45 DCW (Rec: 10/23/23 10:31 DCW [id number]) Out-Patient Physical Therapy Visit Information Visit Information Visit Type Progress Note Visit Start Time 09:45 Visit Stop Time 10:30 Total Visit Minutes 45 Visit Number 10 Number of SIGNALLING AND COMMUNICATIONS ENGINEER Visits 0 Evaluation Information Evaluation Date 09/06/23 PT-OP-B Current Condition Start: 09/06/23 11:34 Freq: Status: Active Protocol: Document 09/27/23 14:20 AM (Rec: 09/27/23 16:39 AM [id number]) Current Condition History of Current Condition Onset Date 07/22/23 Current Complaints R Lower leg pain from recent fracture History of Current Condition Pt fractured R tib-fib on . Pt had surgical repair on 07/23/23. Pt was TDWB, though now WBAT. Pt slipped on a step and fell. Pt had previous issue of R knee giving out on her. Pt reports that she had a fall 2 months prior. Prior Treatments and Tests Intramedullary nail PT-OP-C Subjective Start: 09/06/23 11:34 Freq: Status: Active Protocol: Document 10/23/23 09:45 DCW (Rec: 10/23/23 10:31 DCW [id number]) OP-PT Subjective Patient Comments Patient Comments Knee is still really sore, but I've been getting up and moving as much as I can. PT-OP-D Balance Start: 09/06/23 11:34 Freq: Status: Active Protocol: Document 09/06/23 11:35 AM (Rec: 09/06/23 13:05 AM [id number]) OP-PT Balance Assessment Standing Balance Static Standing Balance Ability Good Dynamic Standing Balance Ability Fair Device Used 4WW Balance Tests Single Limb Standing Single Limb- Right unable to stand on R LE Vargas Fall Scale Copyright Permission PT-OP-F Manual Assessment Start: 09/06/23 11:34 Freq: Status: Active Protocol: Document 09/06/23 11:35 AM (Rec: 09/06/23 13:05 AM [id number]) Manual Assessments Soft Tissue Assessment Soft Tissue Mobility Assessment Surgical incisions healed. Pt demonstrates ecchymosis at R lower leg and foot. Mild pitting edema. PT-OP-G Mobility & Gait Start: 09/06/23 11:34 Freq: Status: Active Protocol: Document 09/06/23 11:35 AM (Rec: 09/06/23 13:05 AM [id number]) OP Gait Assessment Gait Gait Assistance Required: Independent Able to Maintain Weight Bearing Status Yes During Gait Assistive Devices Assistive Device None,4 Wheeled Walker Gait Deviations General Gait Pattern Antalgic,Decreased Stride Length,Flexed Trunk Factors Limiting Gait Function Factors Limiting Gait Function Decreased Activity Tolerance, Decreased Strength,Limited Range of Motion,Pain Comments Gait Comments Difficulty achieving R knee extension, cues to decrease UT tension PT-OP-K Range of Motion Start: 09/06/23 11:34 Freq: Status: Active Protocol: Document 10/07/23 11:32 AM (Rec: 10/07/23 14:17 AM [id number]) Knee Goniometric Range of Motion Knee Right Flexion Active (degrees) 119 Extension Active (degrees) 3 Ankle and Foot Goniometric Range of Motion Ankle and Foot Right Active Dorsiflexion with Knee Extended 8 Plantarflexion 35 Inversion 25 Eversion 8 PT-OP-M Strength Start: 09/06/23 11:34 Freq: Status: Active Protocol: Document 10/07/23 11:32 AM (Rec: 10/07/23 14:17 AM [id number]) Hip Strength Hip Manual Muscle Testing Right Flexion (L2) 4- Good- Abduction 4- Good- Adduction 4 Good Knee Strength Knee Manual Muscle Testing Right Flexion (S2) 4- Good- Extension (L3) 3+ Fair+ Ankle/Foot Strength Ankle and Foot Manual Muscle Testing Right Dorsiflexion (L4) 4- Good- Plantarflexion (S1) 3+ Fair+ Inversion 3+ Fair+ Eversion (S1) 3+ Fair+ PT-OP-Q Treatments Start: 09/06/23 11:34 Freq: Status: Active Protocol: Document 10/23/23 09:45 DCW (Rec: 10/23/23 10:31 DCW [id number]) Cardio Equipment Recumbent Elliptical ([employer]) Duration (Minutes) 5 Resistance 5 Seat Position 5 Gym Equipment Shuttle Recovery Bilateral Heel Raises Resistance 25# (one new) Unilateral squat Resistance 25# (one new) Reps/Time x15 Bilateral squat Resistance 50# (two new) Shuttle Recovery Platform Stable Reps/Time x20 Therapeutic Exercises Sitting Exercises BAPS Sitting Exercise Name BAPS (switched to standing) Side right Resistance Lv 3 Comments DF/PF, Inv/Ev, CW/CCW Gait Training Gait Activity SPC Treatment Focus To improve gait pattern Comments Sequencing, increasing left step length, combining advance of SPC and right foot Manual Therapy Treatment Joint Mobilizations Right Knee Joint R knee Direction P<->A Grade III Body Position Sitting Other Other Manual Treatments Therapist-driven PROM of R ankle PT-OP-T Assessment and Plan Start: 09/06/23 11:34 Freq: Status: Active Protocol: Document 10/23/23 09:45 DCW (Rec: 10/23/23 10:31 DCW [id number]) Physical Therapy Assessment Goals Walking Impairment Pt able to walk 5-6 min before need to sit at IE. Short Term Goal (STG) Pt able to ambulate 15 min before need to sit. 10/07/23: Progressing towards goal. Pt reports that she is able to walk for 10 min at a time before she needs to sit. STG Duration 10/11/23 Penitentiary Goal (LTG) Pt able to ambulate 30 min before need to sit. LTG Duration 11/15/23 ROM Impairment Pt with limitations at R knee and ankle ROM. Penitentiary Goal (LTG) Pt with R knee and ankle ROM that is WFL. LTG Duration 11/15/23 Gait Impairment Pt ambulating with 4WW. Short Term Goal (STG) Pt able to ambulate safely with SPC. 10/07/23: Pt ambulating with 4WW in the community. Pt is using the cane in the house some. Pt able to ambulate in the clinic with SPC and CGA. STG Duration 10/11/23 Mogul Operator Goal (LTG) Pt able to ambulate safely without AD. LTG Duration 11/15/23 LEFS Impairment Pt with score of 12/80 on LEFS at IE Short Term Goal (STG) Pt with score of 35/80 10/07/23: Pt with gradual progression with score of 19/ 80. STG Duration 10/11/23 Mogul Operator Goal (LTG) Pt with score of 45/80 on LEFS LTG Duration 11/15/23 Strength Impairment Pt with 3/5 to 3+/5 R LE strength grossly. Short Term Goal (STG) Pt with 4-/5 to 4/5 R LE strength grossly. : Pt with improved strength compared to IE, progressing towards goal STG Duration 10/11/23 Penitentiary Goal (LTG) Pt with 4+/5 to 5/5 R LE strength grossly. Pain Impairment Pt with 9/10 at worst at IE. Short Term Goal (STG) Pt to report pain at 6/10 at the worst. 10/07/23: Pt reports 5/10 at the worst the last few days. STG Duration 10/11/23-Goal met Mogul Operator Goal (LTG) Pt to report that pain is <1/ 10 at the worst. LTG Duration 11/15/23 Assessment Summary Assessment Worked some on gait with SPC, pt demonstrates increased reliance on UE support using SPC vs 4WW, admits she just feels unsteady. Doing well with gentle strengthening at this time, improving mobility of both ankle and knee. Physical Therapy Plan Frequency and Duration Frequency of Treatment 2x/Week Duration of treatment (weeks) 10 Plan of Care Start Date 09/06/23 Plan of Care End Date 11/15/23 Therapeutic Interventions Therapeutic Interventions Balance Training,Coordination Training,Gait Training,Home Exercise Program,Joint Mobilizations,Manual Therapy, Neuromuscular Re-education, Patient/Caregiver Education, Self-Care/Home Management,Soft Tissue Mobilization,Taping, Therapeutic Activities, Therapeutic Exercises Modalities Cold Pack/Ice Massage,Electric Stimulation,Hot Packs, Ultrasound Next Visit Focus/Plan Next Note Type Treatment Note Next Visit Plan progress R LE strength and mobility, progress HEP
--- NOTE | 2023-10-25 10:32 | PT.OTN ---
Current Diagnoses Displaced spiral fracture of shaft of right tibia, subsequent encounter for closed fracture with routine healing (10/25/23) Physical Therapy Treatment Note PT-OP-A Visit Information Start: 09/06/23 11:34 Freq: Status: Active Protocol: Document 10/25/23 09:45 DCW (Rec: 10/25/23 10:32 DCW [id number]) Out-Patient Physical Therapy Visit Information Visit Information Visit Type Treatment Note Visit Start Time 09:45 Visit Stop Time 10:30 Total Visit Minutes 45 Visit Number 11 Number of PAYMENT COLLECTOR Visits 0 Evaluation Information Evaluation Date 09/06/23 PT-OP-B Current Condition Start: 09/06/23 11:34 Freq: Status: Active Protocol: Document 09/27/23 14:20 AM (Rec: 09/27/23 16:39 AM [id number]) Current Condition History of Current Condition Onset Date 07/22/23 Current Complaints R Lower leg pain from recent fracture History of Current Condition Pt fractured R tib-fib on . Pt had surgical repair on 07/23/23. Pt was TDWB, though now WBAT. Pt slipped on a step and fell. Pt had previous issue of R knee giving out on her. Pt reports that she had a fall 2 months prior. Prior Treatments and Tests Intramedullary nail PT-OP-C Subjective Start: 09/06/23 11:34 Freq: Status: Active Protocol: Document 10/25/23 09:45 DCW (Rec: 10/25/23 10:32 DCW [id number]) OP-PT Subjective Patient Comments Patient Comments Pt comes in today with her knee wrapped, feels better after wrapping it. Notes she was on her feet for a few hours after her most recent PT appointment, and was in a lot of pain. PT-OP-D Balance Start: 09/06/23 11:34 Freq: Status: Active Protocol: Document 09/06/23 11:35 AM (Rec: 09/06/23 13:05 AM [id number]) OP-PT Balance Assessment Standing Balance Static Standing Balance Ability Good Dynamic Standing Balance Ability Fair Device Used 4WW Balance Tests Single Limb Standing Single Limb- Right unable to stand on R LE Vargas Fall Scale Copyright Permission PT-OP-F Manual Assessment Start: 09/06/23 11:34 Freq: Status: Active Protocol: Document 09/06/23 11:35 AM (Rec: 09/06/23 13:05 AM [id number]) Manual Assessments Soft Tissue Assessment Soft Tissue Mobility Assessment Surgical incisions healed. Pt demonstrates ecchymosis at R lower leg and foot. Mild pitting edema. PT-OP-G Mobility & Gait Start: 09/06/23 11:34 Freq: Status: Active Protocol: Document 09/06/23 11:35 AM (Rec: 09/06/23 13:05 AM [id number]) OP Gait Assessment Gait Gait Assistance Required: Independent Able to Maintain Weight Bearing Status Yes During Gait Assistive Devices Assistive Device None,4 Wheeled Walker Gait Deviations General Gait Pattern Antalgic,Decreased Stride Length,Flexed Trunk Factors Limiting Gait Function Factors Limiting Gait Function Decreased Activity Tolerance, Decreased Strength,Limited Range of Motion,Pain Comments Gait Comments Difficulty achieving R knee extension, cues to decrease UT tension PT-OP-K Range of Motion Start: 09/06/23 11:34 Freq: Status: Active Protocol: Document 10/07/23 11:32 AM (Rec: 10/07/23 14:17 AM [id number]) Knee Goniometric Range of Motion Knee Right Flexion Active (degrees) 119 Extension Active (degrees) 3 Ankle and Foot Goniometric Range of Motion Ankle and Foot Right Active Dorsiflexion with Knee Extended 8 Plantarflexion 35 Inversion 25 Eversion 8 PT-OP-M Strength Start: 09/06/23 11:34 Freq: Status: Active Protocol: Document 10/07/23 11:32 AM (Rec: 10/07/23 14:17 AM [id number]) Hip Strength Hip Manual Muscle Testing Right Flexion (L2) 4- Good- Abduction 4- Good- Adduction 4 Good Knee Strength Knee Manual Muscle Testing Right Flexion (S2) 4- Good- Extension (L3) 3+ Fair+ Ankle/Foot Strength Ankle and Foot Manual Muscle Testing Right Dorsiflexion (L4) 4- Good- Plantarflexion (S1) 3+ Fair+ Inversion 3+ Fair+ Eversion (S1) 3+ Fair+ PT-OP-Q Treatments Start: 09/06/23 11:34 Freq: Status: Active Protocol: Document 10/25/23 09:45 DCW (Rec: 10/25/23 10:32 DCW [id number]) Cardio Equipment Recumbent Elliptical ([employer]) Duration (Minutes) 5 Resistance 6 Seat Position 5 Gym Equipment Shuttle Recovery Bilateral Heel Raises Resistance 25# (one new) Unilateral squat Resistance 25# (one new) Reps/Time x15 Bilateral squat Resistance 50# (two new) Shuttle Recovery Platform Stable Reps/Time x20 Manual Therapy Treatment Joint Mobilizations Right Knee Joint R knee Direction P<->A Grade III Body Position Sitting Other Other Manual Treatments Therapist-driven PROM of R ankle PT-OP-T Assessment and Plan Start: 09/06/23 11:34 Freq: Status: Active Protocol: Document 10/25/23 09:45 DCW (Rec: 10/25/23 10:32 DCW [id number]) Physical Therapy Assessment Goals Walking Impairment Pt able to walk 5-6 min before need to sit at IE. Short Term Goal (STG) Pt able to ambulate 15 min before need to sit. 10/07/23: Progressing towards goal. Pt reports that she is able to walk for 10 min at a time before she needs to sit. STG Duration 10/11/23 Assisted Goal (LTG) Pt able to ambulate 30 min before need to sit. LTG Duration 11/15/23 ROM Impairment Pt with limitations at R knee and ankle ROM. Assisted Goal (LTG) Pt with R knee and ankle ROM that is WFL. LTG Duration 11/15/23 Gait Impairment Pt ambulating with 4WW. Short Term Goal (STG) Pt able to ambulate safely with SPC. 10/07/23: Pt ambulating with 4WW in the community. Pt is using the cane in the house some. Pt able to ambulate in the clinic with SPC and CGA. STG Duration 10/11/23 Back Roll Lathe Operator Goal (LTG) Pt able to ambulate safely without AD. LTG Duration 11/15/23 LEFS Impairment Pt with score of 12/80 on LEFS at IE Short Term Goal (STG) Pt with score of 35/80 10/07/23: Pt with gradual progression with score of 19/ 80. STG Duration 10/11/23 Back Roll Lathe Operator Goal (LTG) Pt with score of 45/80 on LEFS LTG Duration 11/15/23 Strength Impairment Pt with 3/5 to 3+/5 R LE strength grossly. Short Term Goal (STG) Pt with 4-/5 to 4/5 R LE strength grossly. : Pt with improved strength compared to IE, progressing towards goal STG Duration 10/11/23 Assisted Goal (LTG) Pt with 4+/5 to 5/5 R LE strength grossly. Pain Impairment Pt with 9/10 at worst at IE. Short Term Goal (STG) Pt to report pain at 6/10 at the worst. 10/07/23: Pt reports 5/10 at the worst the last few days. STG Duration 10/11/23-Goal met Back Roll Lathe Operator Goal (LTG) Pt to report that pain is <1/ 10 at the worst. LTG Duration 11/15/23 Assessment Summary Assessment Performed fewer weight bearing activities today due to increased pain in lower leg secondary to extended ambulation this past week. Pt felt joint mobs and PROM was beneficial. Physical Therapy Plan Frequency and Duration Frequency of Treatment 2x/Week Duration of treatment (weeks) 10 Plan of Care Start Date 09/06/23 Plan of Care End Date 11/15/23 Therapeutic Interventions Therapeutic Interventions Balance Training,Coordination Training,Gait Training,Home Exercise Program,Joint Mobilizations,Manual Therapy, Neuromuscular Re-education, Patient/Caregiver Education, Self-Care/Home Management,Soft Tissue Mobilization,Taping, Therapeutic Activities, Therapeutic Exercises Modalities Cold Pack/Ice Massage,Electric Stimulation,Hot Packs, Ultrasound Next Visit Focus/Plan Next Note Type Treatment Note Next Visit Plan progress R LE strength and mobility, progress HEP
--- NOTE | 2023-10-30 11:16 | PT.OTN ---
Current Diagnoses Displaced spiral fracture of shaft of right tibia, subsequent encounter for closed fracture with routine healing (10/30/23) Physical Therapy Treatment Note PT-OP-A Visit Information Start: 09/06/23 11:34 Freq: Status: Active Protocol: Document 10/30/23 10:30 DCW (Rec: 10/30/23 11:16 DCW [id number]) Out-Patient Physical Therapy Visit Information Visit Information Visit Type Treatment Note Visit Start Time 10:30 Visit Stop Time 11:15 Total Visit Minutes 45 Visit Number 12 Number of DIALS INSPECTOR Visits 0 Evaluation Information Evaluation Date 09/06/23 PT-OP-B Current Condition Start: 09/06/23 11:34 Freq: Status: Active Protocol: Document 09/27/23 14:20 AM (Rec: 09/27/23 16:39 AM [id number]) Current Condition History of Current Condition Onset Date 07/22/23 Current Complaints R Lower leg pain from recent fracture History of Current Condition Pt fractured R tib-fib on . Pt had surgical repair on 07/23/23. Pt was TDWB, though now WBAT. Pt slipped on a step and fell. Pt had previous issue of R knee giving out on her. Pt reports that she had a fall 2 months prior. Prior Treatments and Tests Intramedullary nail PT-OP-C Subjective Start: 09/06/23 11:34 Freq: Status: Active Protocol: Document 10/30/23 10:30 DCW (Rec: 10/30/23 11:16 DCW [id number]) OP-PT Subjective Patient Comments Patient Comments I'm trying to walk more without my walker, using my cane, it seemed to put a lot of strain on my shoulder. PT-OP-D Balance Start: 09/06/23 11:34 Freq: Status: Active Protocol: Document 09/06/23 11:35 AM (Rec: 09/06/23 13:05 AM [id number]) OP-PT Balance Assessment Standing Balance Static Standing Balance Ability Good Dynamic Standing Balance Ability Fair Device Used 4WW Balance Tests Single Limb Standing Single Limb- Right unable to stand on R LE Vargas Fall Scale Copyright Permission PT-OP-F Manual Assessment Start: 09/06/23 11:34 Freq: Status: Active Protocol: Document 09/06/23 11:35 AM (Rec: 09/06/23 13:05 AM [id number]) Manual Assessments Soft Tissue Assessment Soft Tissue Mobility Assessment Surgical incisions healed. Pt demonstrates ecchymosis at R lower leg and foot. Mild pitting edema. PT-OP-G Mobility & Gait Start: 09/06/23 11:34 Freq: Status: Active Protocol: Document 09/06/23 11:35 AM (Rec: 09/06/23 13:05 AM [id number]) OP Gait Assessment Gait Gait Assistance Required: Independent Able to Maintain Weight Bearing Status Yes During Gait Assistive Devices Assistive Device None,4 Wheeled Walker Gait Deviations General Gait Pattern Antalgic,Decreased Stride Length,Flexed Trunk Factors Limiting Gait Function Factors Limiting Gait Function Decreased Activity Tolerance, Decreased Strength,Limited Range of Motion,Pain Comments Gait Comments Difficulty achieving R knee extension, cues to decrease UT tension PT-OP-K Range of Motion Start: 09/06/23 11:34 Freq: Status: Active Protocol: Document 10/07/23 11:32 AM (Rec: 10/07/23 14:17 AM [id number]) Knee Goniometric Range of Motion Knee Right Flexion Active (degrees) 119 Extension Active (degrees) 3 Ankle and Foot Goniometric Range of Motion Ankle and Foot Right Active Dorsiflexion with Knee Extended 8 Plantarflexion 35 Inversion 25 Eversion 8 PT-OP-M Strength Start: 09/06/23 11:34 Freq: Status: Active Protocol: Document 10/07/23 11:32 AM (Rec: 10/07/23 14:17 AM [id number]) Hip Strength Hip Manual Muscle Testing Right Flexion (L2) 4- Good- Abduction 4- Good- Adduction 4 Good Knee Strength Knee Manual Muscle Testing Right Flexion (S2) 4- Good- Extension (L3) 3+ Fair+ Ankle/Foot Strength Ankle and Foot Manual Muscle Testing Right Dorsiflexion (L4) 4- Good- Plantarflexion (S1) 3+ Fair+ Inversion 3+ Fair+ Eversion (S1) 3+ Fair+ PT-OP-Q Treatments Start: 09/06/23 11:34 Freq: Status: Active Protocol: Document 10/30/23 10:30 DCW (Rec: 10/30/23 11:16 DCW [id number]) Cardio Equipment Recumbent Elliptical ([employer]) Duration (Minutes) 5 Resistance 6 Seat Position 5 Gym Equipment Shuttle Recovery Bilateral Heel Raises Resistance 25# (one new) Unilateral squat Resistance 25# (one new) Reps/Time x15 Bilateral squat Resistance 50# (two new) Shuttle Recovery Platform Stable Reps/Time x20 Therapeutic Exercises Sitting Exercises BAPS Sitting Exercise Name BAPS (switched to standing) Side right Resistance Lv 4 Comments DF/PF, Inv/Ev, CW/CCW Standing Exercises calf stretch Standing Exercise Name Calf Stretch Equipment Used SALINA Reps/Minutes x30 sec Manual Therapy Treatment Joint Mobilizations Right Knee Joint R knee Direction P<->A Grade III Body Position Sitting Other Other Manual Treatments Therapist-driven PROM of R ankle PT-OP-T Assessment and Plan Start: 09/06/23 11:34 Freq: Status: Active Protocol: Document 10/30/23 10:30 DCW (Rec: 10/30/23 11:16 DCW [id number]) Physical Therapy Assessment Goals Walking Impairment Pt able to walk 5-6 min before need to sit at IE. Short Term Goal (STG) Pt able to ambulate 15 min before need to sit. 10/07/23: Progressing towards goal. Pt reports that she is able to walk for 10 min at a time before she needs to sit. STG Duration 10/11/23 Cloth Dyer Goal (LTG) Pt able to ambulate 30 min before need to sit. LTG Duration 11/15/23 ROM Impairment Pt with limitations at R knee and ankle ROM. Mcfp Goal (LTG) Pt with R knee and ankle ROM that is WFL. LTG Duration 11/15/23 Gait Impairment Pt ambulating with 4WW. Short Term Goal (STG) Pt able to ambulate safely with SPC. 10/07/23: Pt ambulating with 4WW in the community. Pt is using the cane in the house some. Pt able to ambulate in the clinic with SPC and CGA. STG Duration 10/11/23 Cloth Dyer Goal (LTG) Pt able to ambulate safely without AD. LTG Duration 11/15/23 LEFS Impairment Pt with score of 12/80 on LEFS at IE Short Term Goal (STG) Pt with score of 35/80 10/07/23: Pt with gradual progression with score of 19/ 80. STG Duration 10/11/23 Cloth Dyer Goal (LTG) Pt with score of 45/80 on LEFS LTG Duration 11/15/23 Strength Impairment Pt with 3/5 to 3+/5 R LE strength grossly. Short Term Goal (STG) Pt with 4-/5 to 4/5 R LE strength grossly. : Pt with improved strength compared to IE, progressing towards goal STG Duration 10/11/23 Mcfp Goal (LTG) Pt with 4+/5 to 5/5 R LE strength grossly. Pain Impairment Pt with 9/10 at worst at IE. Short Term Goal (STG) Pt to report pain at 6/10 at the worst. 10/07/23: Pt reports 5/10 at the worst the last few days. STG Duration 10/11/23-Goal met Mcfp Goal (LTG) Pt to report that pain is <1/ 10 at the worst. LTG Duration 11/15/23 Assessment Summary Assessment Pt slowly improving with left knee pain, enabling her to tolerate increased standing exercises, although she was tired today after a long day yesterday. Has been doing well with HEP compliance. Physical Therapy Plan Frequency and Duration Frequency of Treatment 2x/Week Duration of treatment (weeks) 10 Plan of Care Start Date 09/06/23 Plan of Care End Date 11/15/23 Therapeutic Interventions Therapeutic Interventions Balance Training,Coordination Training,Gait Training,Home Exercise Program,Joint Mobilizations,Manual Therapy, Neuromuscular Re-education, Patient/Caregiver Education, Self-Care/Home Management,Soft Tissue Mobilization,Taping, Therapeutic Activities, Therapeutic Exercises Modalities Cold Pack/Ice Massage,Electric Stimulation,Hot Packs, Ultrasound Next Visit Focus/Plan Next Note Type Treatment Note Next Visit Plan progress R LE strength and mobility, progress HEP
--- NOTE | 2023-11-01 11:10 | PT.OTN ---
Current Diagnoses Displaced spiral fracture of shaft of right tibia, subsequent encounter for closed fracture with routine healing (11/01/23) Physical Therapy Treatment Note PT-OP-A Visit Information Start: 09/06/23 11:34 Freq: Status: Active Protocol: Document 11/01/23 10:32 DCW (Rec: 11/01/23 11:10 DCW [id number]) Out-Patient Physical Therapy Visit Information Visit Information Visit Type Treatment Note Visit Start Time 10:32 Visit Stop Time 11:15 Total Visit Minutes 43 Visit Number 13 Number of RN LACTATION Visits 0 Evaluation Information Evaluation Date 09/06/23 PT-OP-B Current Condition Start: 09/06/23 11:34 Freq: Status: Active Protocol: Document 09/27/23 14:20 AM (Rec: 09/27/23 16:39 AM [id number]) Current Condition History of Current Condition Onset Date 07/22/23 Current Complaints R Lower leg pain from recent fracture History of Current Condition Pt fractured R tib-fib on . Pt had surgical repair on 07/23/23. Pt was TDWB, though now WBAT. Pt slipped on a step and fell. Pt had previous issue of R knee giving out on her. Pt reports that she had a fall 2 months prior. Prior Treatments and Tests Intramedullary nail PT-OP-C Subjective Start: 09/06/23 11:34 Freq: Status: Active Protocol: Document 11/01/23 10:32 DCW (Rec: 11/01/23 11:10 DCW [id number]) OP-PT Subjective Patient Comments Patient Comments Pt admits she has been pushing it a bit and her leg is pretty sore. PT-OP-D Balance Start: 09/06/23 11:34 Freq: Status: Active Protocol: Document 09/06/23 11:35 AM (Rec: 09/06/23 13:05 AM [id number]) OP-PT Balance Assessment Standing Balance Static Standing Balance Ability Good Dynamic Standing Balance Ability Fair Device Used 4WW Balance Tests Single Limb Standing Single Limb- Right unable to stand on R LE Vargas Fall Scale Copyright Permission PT-OP-F Manual Assessment Start: 09/06/23 11:34 Freq: Status: Active Protocol: Document 09/06/23 11:35 AM (Rec: 09/06/23 13:05 AM [id number]) Manual Assessments Soft Tissue Assessment Soft Tissue Mobility Assessment Surgical incisions healed. Pt demonstrates ecchymosis at R lower leg and foot. Mild pitting edema. PT-OP-G Mobility & Gait Start: 09/06/23 11:34 Freq: Status: Active Protocol: Document 09/06/23 11:35 AM (Rec: 09/06/23 13:05 AM [id number]) OP Gait Assessment Gait Gait Assistance Required: Independent Able to Maintain Weight Bearing Status Yes During Gait Assistive Devices Assistive Device None,4 Wheeled Walker Gait Deviations General Gait Pattern Antalgic,Decreased Stride Length,Flexed Trunk Factors Limiting Gait Function Factors Limiting Gait Function Decreased Activity Tolerance, Decreased Strength,Limited Range of Motion,Pain Comments Gait Comments Difficulty achieving R knee extension, cues to decrease UT tension PT-OP-K Range of Motion Start: 09/06/23 11:34 Freq: Status: Active Protocol: Document 10/07/23 11:32 AM (Rec: 10/07/23 14:17 AM [id number]) Knee Goniometric Range of Motion Knee Right Flexion Active (degrees) 119 Extension Active (degrees) 3 Ankle and Foot Goniometric Range of Motion Ankle and Foot Right Active Dorsiflexion with Knee Extended 8 Plantarflexion 35 Inversion 25 Eversion 8 PT-OP-M Strength Start: 09/06/23 11:34 Freq: Status: Active Protocol: Document 10/07/23 11:32 AM (Rec: 10/07/23 14:17 AM [id number]) Hip Strength Hip Manual Muscle Testing Right Flexion (L2) 4- Good- Abduction 4- Good- Adduction 4 Good Knee Strength Knee Manual Muscle Testing Right Flexion (S2) 4- Good- Extension (L3) 3+ Fair+ Ankle/Foot Strength Ankle and Foot Manual Muscle Testing Right Dorsiflexion (L4) 4- Good- Plantarflexion (S1) 3+ Fair+ Inversion 3+ Fair+ Eversion (S1) 3+ Fair+ PT-OP-Q Treatments Start: 09/06/23 11:34 Freq: Status: Active Protocol: Document 11/01/23 10:32 DCW (Rec: 11/01/23 11:10 DCW [id number]) Cardio Equipment Recumbent Elliptical ([employer]) Duration (Minutes) 6 Resistance 6 Seat Position 5 Gym Equipment Shuttle Recovery Bilateral Heel Raises Resistance 25# (one new) Unilateral squat Resistance 25# (one new) Reps/Time x15 Bilateral squat Resistance 50# (two new) Shuttle Recovery Platform Stable Reps/Time x20 Therapeutic Exercises Sitting Exercises BAPS Sitting Exercise Name BAPS (standing) Side right Resistance Lv 4 Comments DF/PF, Inv/Ev, CW/CCW Gait Training Gait Activity Stairs Description Ascend/Descend Device Used B rail Level of Assistance SBA Comments Step-over SPC Device Used SPC Level of Assistance CGA Treatment Focus To improve gait pattern Comments Sequencing, increasing left step length, combining advance of SPC and right foot PT-OP-T Assessment and Plan Start: 09/06/23 11:34 Freq: Status: Active Protocol: Document 11/01/23 10:32 DCW (Rec: 11/01/23 11:10 DCW [id number]) Physical Therapy Assessment Impairments Impairments Activity Tolerance,Balance, Coordination,Edema,Functional Activities,Functional Mobility ,Gait,Pain,Posture,ROM,Soft Tissue Mobility,Strength Goals Walking Impairment Pt able to walk 5-6 min before need to sit at IE. Short Term Goal (STG) Pt able to ambulate 15 min before need to sit. 10/07/23: Progressing towards goal. Pt reports that she is able to walk for 10 min at a time before she needs to sit. STG Duration 10/11/23 Chief Librarian Work With Blind Goal (LTG) Pt able to ambulate 30 min before need to sit. LTG Duration 11/15/23 ROM Impairment Pt with limitations at R knee and ankle ROM. Half-Way Goal (LTG) Pt with R knee and ankle ROM that is WFL. LTG Duration 11/15/23 Gait Impairment Pt ambulating with 4WW. Short Term Goal (STG) Pt able to ambulate safely with SPC. 10/07/23: Pt ambulating with 4WW in the community. Pt is using the cane in the house some. Pt able to ambulate in the clinic with SPC and CGA. STG Duration 10/11/23 Half-Way Goal (LTG) Pt able to ambulate safely without AD. LTG Duration 11/15/23 LEFS Impairment Pt with score of 12/80 on LEFS at IE Short Term Goal (STG) Pt with score of 35/80 10/07/23: Pt with gradual progression with score of 19/ 80. STG Duration 10/11/23 Chief Librarian Work With Blind Goal (LTG) Pt with score of 45/80 on LEFS LTG Duration 11/15/23 Strength Impairment Pt with 3/5 to 3+/5 R LE strength grossly. Short Term Goal (STG) Pt with 4-/5 to 4/5 R LE strength grossly. : Pt with improved strength compared to IE, progressing towards goal STG Duration 10/11/23 Chief Librarian Work With Blind Goal (LTG) Pt with 4+/5 to 5/5 R LE strength grossly. Pain Impairment Pt with 9/10 at worst at IE. Short Term Goal (STG) Pt to report pain at 6/10 at the worst. 10/07/23: Pt reports 5/10 at the worst the last few days. STG Duration 10/11/23-Goal met Chief Librarian Work With Blind Goal (LTG) Pt to report that pain is <1/ 10 at the worst. LTG Duration 11/15/23 Assessment Summary Assessment Pt continues to show improvement, doing well with gait sequencing using SPC< still occasionally overuses cane with UE support. Was able to ascend/descend stairs step -over-step without pain Physical Therapy Plan Frequency and Duration Frequency of Treatment 2x/Week Duration of treatment (weeks) 10 Plan of Care Start Date 09/06/23 Plan of Care End Date 11/15/23 Therapeutic Interventions Therapeutic Interventions Balance Training,Coordination Training,Gait Training,Home Exercise Program,Joint Mobilizations,Manual Therapy, Neuromuscular Re-education, Patient/Caregiver Education, Self-Care/Home Management,Soft Tissue Mobilization,Taping, Therapeutic Activities, Therapeutic Exercises Modalities Cold Pack/Ice Massage,Electric Stimulation,Hot Packs, Ultrasound Next Visit Focus/Plan Next Note Type Progress Note Next Visit Plan progress R LE strength and mobility, progress HEP
--- NOTE | 2023-11-26 11:13 | PT.OTN ---
Current Diagnoses Displaced spiral fracture of shaft of right tibia, subsequent encounter for closed fracture with routine healing (11/26/23) Physical Therapy Treatment Note PT-OP-A Visit Information Start: 09/06/23 11:34 Freq: Status: Active Protocol: Document 11/26/23 10:30 DCW (Rec: 11/26/23 11:13 DCW [id number]) Out-Patient Physical Therapy Visit Information Visit Information Visit Type Progress Note Visit Start Time 10:30 Visit Stop Time 11:15 Total Visit Minutes 45 Visit Number 14 PT-OP-B Current Condition Start: 09/06/23 11:34 Freq: Status: Active Protocol: Document 09/27/23 14:20 AM (Rec: 09/27/23 16:39 AM [id number]) Current Condition History of Current Condition Onset Date 07/22/23 Current Complaints R Lower leg pain from recent fracture History of Current Condition Pt fractured R tib-fib on . Pt had surgical repair on 07/23/23. Pt was TDWB, though now WBAT. Pt slipped on a step and fell. Pt had previous issue of R knee giving out on her. Pt reports that she had a fall 2 months prior. Prior Treatments and Tests Intramedullary nail PT-OP-C Subjective Start: 09/06/23 11:34 Freq: Status: Active Protocol: Document 11/26/23 10:30 DCW (Rec: 11/26/23 11:13 DCW [id number]) OP-PT Subjective Patient Comments Patient Comments Pt reports she had to rest quite a bit after returning from her vacation. PT-OP-D Balance Start: 09/06/23 11:34 Freq: Status: Active Protocol: Document 11/26/23 10:30 DCW (Rec: 11/26/23 11:00 DCW [id number]) OP-PT Balance Assessment Sitting Balance Static Sitting Balance Ability Normal Dynamic Sitting Balance Ability Normal Standing Balance Static Standing Balance Ability Good Dynamic Standing Balance Ability Fair Device Used SPC, none Vargas Fall Scale Copyright Permission PT-OP-E Functional Tests Start: 09/06/23 11:34 Freq: Status: Active Protocol: Document 11/26/23 10:30 DCW (Rec: 11/26/23 11:03 DCW [id number]) Functional Tests 2 Minute Walk Test Distance 324' Device Used None Comments 2.7 ft/sec Dynamic Gait Index (DGI) Score DGI Impairment Rating 20 to <40% Impaired (Score 15- 19) PT-OP-F Manual Assessment Start: 09/06/23 11:34 Freq: Status: Active Protocol: Document 11/26/23 10:30 DCW (Rec: 11/26/23 11:03 DCW [id number]) Manual Assessments Soft Tissue Assessment Soft Tissue Mobility Assessment Surgical incisions healed. No edema. PT-OP-G Mobility & Gait Start: 09/06/23 11:34 Freq: Status: Active Protocol: Document 11/26/23 10:30 DCW (Rec: 11/26/23 11:00 DCW [id number]) OP Gait Assessment Gait Gait Assistance Required: Independent Distance (Feet) 324 Able to Maintain Weight Bearing Status Yes During Gait Assistive Devices Assistive Device None Gait Deviations General Gait Pattern Antalgic,Decreased Stride Length,Decreased Feet Clearance,Flexed Trunk Factors Limiting Gait Function Factors Limiting Gait Function Decreased Activity Tolerance, Decreased Strength,Limited Range of Motion,Pain Comments Gait Comments Difficulty achieving R knee extension Stair Climbing Evaluation Evaluation Level of Assist On Stairs Independent Devices Stair Climbing Assistive Devices Left Railing,Right Railing Technique/Endurance Stair Climbing Direction Ascend and Descend Stair Climbing Technique Step Over Step Number of Steps Climbed 4 Stair Climbing Set # Repetitions (reps) 2 PT-OP-K Range of Motion Start: 09/06/23 11:34 Freq: Status: Active Protocol: Document 11/26/23 10:30 DCW (Rec: 11/26/23 11:00 DCW [id number]) Knee Goniometric Range of Motion Knee Right Patient Position Supine Flexion Active (degrees) 130 Extension Active (degrees) 1 Ankle and Foot Goniometric Range of Motion Ankle and Foot Right Active Testing Position Supine Dorsiflexion with Knee Flexed 10 Dorsiflexion with Knee Extended 8 Plantarflexion 42 Inversion 48 Eversion 11 PT-OP-M Strength Start: 09/06/23 11:34 Freq: Status: Active Protocol: Document 11/26/23 10:30 DCW (Rec: 11/26/23 11:00 DCW [id number]) Knee Strength Knee Manual Muscle Testing Right Flexion (S2) 4 Good Extension (L3) 4+ Good+ Ankle/Foot Strength Ankle and Foot Manual Muscle Testing Right Dorsiflexion (L4) 4+ Good+ Plantarflexion (S1) 3- Fair- Inversion 4 Good Eversion (S1) 4 Good PT-OP-Q Treatments Start: 09/06/23 11:34 Freq: Status: Active Protocol: Document 11/26/23 10:30 DCW (Rec: 11/26/23 11:13 DCW [id number]) Cardio Equipment Recumbent Elliptical (Biodex) Duration (Minutes) 6 Resistance 6 Seat Position 5 Therapeutic Exercises Sitting Exercises BAPS Sitting Exercise Name BAPS (standing) Side right Resistance Lv 4 Comments DF/PF, Inv/Ev, CW/CCW PT-OP-T Assessment and Plan Start: 09/06/23 11:34 Freq: Status: Active Protocol: Document 11/26/23 10:30 DCW (Rec: 11/26/23 11:13 DCW [id number]) Physical Therapy Assessment Impairments Impairments Activity Tolerance,Balance, Coordination,Edema,Functional Activities,Functional Mobility ,Gait,Pain,Posture,ROM,Soft Tissue Mobility,Strength Goals Walking Impairment Pt able to walk 5-6 min before need to sit at IE. Short Term Goal (STG) Pt able to ambulate 15 min before need to sit. STG Duration Met Tape Controlled Machine Stitcher Goal (LTG) Pt able to ambulate 30 min before need to sit. LTG Duration 01/25/24 ROM Impairment Pt with limitations at R knee and ankle ROM. Fci Goal (LTG) Pt with R knee and ankle ROM that is WFL. LTG Duration 01/25/24 - Improving Gait Impairment Pt ambulating with 4WW. Short Term Goal (STG) Pt able to ambulate safely with SPC. STG Duration Met Tape Controlled Machine Stitcher Goal (LTG) Pt able to ambulate safely without AD. LTG Duration 01/25/24 - Improving LEFS Impairment Pt with score of 12/80 on LEFS at IE Short Term Goal (STG) Pt with score of 35/80 10/07/23: Pt with gradual progression with score of 19/ 80. STG Duration 12/27/23 Tape Controlled Machine Stitcher Goal (LTG) Pt with score of 45/80 on LEFS LTG Duration 01/25/24 - Improving Strength Impairment Pt with 3/5 to 3+/5 R LE strength grossly. Short Term Goal (STG) Pt with 4-/5 to 4/5 R LE strength grossly. 10/07/we: Pt with improved strength compared to IE, progressing towards goal STG Duration 12/27/23 Fci Goal (LTG) Pt with 4+/5 to 5/5 R LE strength grossly. LTG Duration 01/25/24 - Improving Pain Impairment Pt with 9/10 at worst at IE. Short Term Goal (STG) Pt to report pain at 6/10 at the worst. STG Duration Met Tape Controlled Machine Stitcher Goal (LTG) Pt to report that pain is <1/ 10 at the worst. LTG Duration 01/25/24 - Improving Assessment Summary Assessment Pt comes in to her appointment today without n AD because she forgot her SPC in the car and her had already driven away. Continues to exhibit antalgia through right leg, but showing great improvement in functional mobility, ROM, strength, and gait. Per DGI, pt still in increased falls risk category with a 19/24 score, continue to focus on gait training, balance, activity tolerance, and LE mobility/strength. Physical Therapy Plan Frequency and Duration Frequency of Treatment 2x/Week Plan of Care Start Date 11/26/23 Plan of Care End Date 01/25/24 Therapeutic Interventions Therapeutic Interventions Balance Training,Coordination Training,Gait Training,Home Exercise Program,Joint Mobilizations,Manual Therapy, Neuromuscular Re-education, Patient/Caregiver Education, Self-Care/Home Management,Soft Tissue Mobilization,Taping, Therapeutic Activities, Therapeutic Exercises Modalities Cold Pack/Ice Massage,Electric Stimulation,Hot Packs, Ultrasound Next Visit Focus/Plan Next Note Type Treatment Note Next Visit Plan progress R LE strength and mobility, progress HEP
--- NOTE | 2023-11-26 11:13 | PT.OPPOC ---
Physical, Occupational & Speech Therapy At [facility] Current Diagnoses Displaced spiral fracture of shaft of right tibia, subsequent encounter for closed fracture with routine healing (11/26/23) Visit Care Team Role Provider Type Other Providers Specialty: Address: Phone: Fax: Email: Jose Brito MD Family Provider Physician Primary Care Provider Specialty: Internal Medicine Address: [address] [place] [address], [address], [place], [address] Email: [email or web address] Cordell Jauregui PA-C Attending Provider Non-Staff Referring Provider Specialty: Medical Address: [address] [place] [address], [id number] Email: Plan Of Care PT-OP-T Assessment and Plan Start: 09/06/23 11:34 Freq: Status: Active Protocol: Document 11/26/23 10:30 DCW (Rec: 11/26/23 11:13 DCW [id number]) Physical Therapy Assessment Impairments Impairments Activity Tolerance,Balance, Coordination,Edema,Functional Activities,Functional Mobility ,Gait,Pain,Posture,ROM,Soft Tissue Mobility,Strength Goals Walking Impairment Pt able to walk 5-6 min before need to sit at IE. Short Term Goal (STG) Pt able to ambulate 15 min before need to sit. STG Duration Met Rubber Roller Grinder Operator Goal (LTG) Pt able to ambulate 30 min before need to sit. LTG Duration 01/25/24 ROM Impairment Pt with limitations at R knee and ankle ROM. Rubber Roller Grinder Operator Goal (LTG) Pt with R knee and ankle ROM that is WFL. LTG Duration 01/25/24 - Improving Gait Impairment Pt ambulating with 4WW. Short Term Goal (STG) Pt able to ambulate safely with SPC. STG Duration Met Penitentiary Goal (LTG) Pt able to ambulate safely without AD. LTG Duration 01/25/24 - Improving LEFS Impairment Pt with score of 12/80 on LEFS at IE Short Term Goal (STG) Pt with score of 35/80 10/07/23: Pt with gradual progression with score of 19/ 80. STG Duration 12/27/23 Rubber Roller Grinder Operator Goal (LTG) Pt with score of 45/80 on LEFS LTG Duration 01/25/24 - Improving Strength Impairment Pt with 3/5 to 3+/5 R LE strength grossly. Short Term Goal (STG) Pt with 4-/5 to 4/5 R LE strength grossly. : Pt with improved strength compared to IE, progressing towards goal STG Duration 12/27/23 Rubber Roller Grinder Operator Goal (LTG) Pt with 4+/5 to 5/5 R LE strength grossly. LTG Duration 01/25/24 - Improving Pain Impairment Pt with 9/10 at worst at IE. Short Term Goal (STG) Pt to report pain at 6/10 at the worst. STG Duration Met Penitentiary Goal (LTG) Pt to report that pain is <1/ 10 at the worst. LTG Duration 01/25/24 - Improving Assessment Summary Assessment Pt comes in to her appointment today without n AD because she forgot her SPC in the car and her had already driven away. Continues to exhibit antalgia through right leg, but showing great improvement in functional mobility, ROM, strength, and gait. Per DGI, pt still in increased falls risk category with a score, continue to focus on gait training, balance, activity tolerance, and LE mobility/strength. Physical Therapy Plan Frequency and Duration Frequency of Treatment 2x/Week Plan of Care Start Date 11/26/23 Plan of Care End Date 01/25/24 Therapeutic Interventions Therapeutic Interventions Balance Training,Coordination Training,Gait Training,Home Exercise Program,Joint Mobilizations,Manual Therapy, Neuromuscular Re-education, Patient/Caregiver Education, Self-Care/Home Management,Soft Tissue Mobilization,Taping, Therapeutic Activities, Therapeutic Exercises Modalities Cold Pack/Ice Massage,Electric Stimulation,Hot Packs, Ultrasound Next Visit Focus/Plan Next Note Type Treatment Note Next Visit Plan progress R LE strength and mobility, progress HEP Plan of Care Dates Plan of Care Start Date 11/26/23 Plan of Care End Date 01/25/24 Electronically Signed by: Moe Pandya, PT 11/26/23 9060 If you are in agreement with this Plan of Care, please return a signed and dated copy. I have reviewed this Plan of Care and certify that the skilled therapy services above are required to meet the patient?s needs. Physician Signature Date Printed Name and Credentials Clinical Instructor Signature Printed Name and Credentials
--- NOTE | 2023-11-28 11:16 | PT.OTN ---
Current Diagnoses Displaced spiral fracture of shaft of right tibia, subsequent encounter for closed fracture with routine healing (11/28/23) Physical Therapy Treatment Note PT-OP-A Visit Information Start: 09/06/23 11:34 Freq: Status: Active Protocol: Document 11/28/23 10:30 DCW (Rec: 11/28/23 11:15 DCW [id number]) Out-Patient Physical Therapy Visit Information Visit Information Visit Type Treatment Note Visit Start Time 10:30 Visit Stop Time 11:15 Total Visit Minutes 45 Visit Number 15 Number of ASPHALT COATER Visits 0 Evaluation Information Evaluation Date 09/06/23 PT-OP-B Current Condition Start: 09/06/23 11:34 Freq: Status: Active Protocol: Document 09/27/23 14:20 AM (Rec: 09/27/23 16:39 AM [id number]) Current Condition History of Current Condition Onset Date 07/22/23 Current Complaints R Lower leg pain from recent fracture History of Current Condition Pt fractured R tib-fib on . Pt had surgical repair on 07/23/23. Pt was TDWB, though now WBAT. Pt slipped on a step and fell. Pt had previous issue of R knee giving out on her. Pt reports that she had a fall 2 months prior. Prior Treatments and Tests Intramedullary nail PT-OP-C Subjective Start: 09/06/23 11:34 Freq: Status: Active Protocol: Document 11/28/23 10:30 DCW (Rec: 11/28/23 11:15 DCW [id number]) OP-PT Subjective Patient Comments Patient Comments Not as good as I was Saturday, but I did a lot of walking after I was here. PT-OP-D Balance Start: 09/06/23 11:34 Freq: Status: Active Protocol: Document 11/26/23 10:30 DCW (Rec: 11/26/23 11:00 DCW [id number]) OP-PT Balance Assessment Sitting Balance Static Sitting Balance Ability Normal Dynamic Sitting Balance Ability Normal Standing Balance Static Standing Balance Ability Good Dynamic Standing Balance Ability Fair Device Used SPC, none Vargas Fall Scale Copyright Permission PT-OP-E Functional Tests Start: 09/06/23 11:34 Freq: Status: Active Protocol: Document 11/26/23 10:30 DCW (Rec: 11/26/23 11:03 DCW [id number]) Functional Tests 2 Minute Walk Test Distance 324' Device Used None Comments 2.7 ft/sec Dynamic Gait Index (DGI) Score DGI Impairment Rating 20 to <40% Impaired (Score 15- 19) PT-OP-F Manual Assessment Start: 09/06/23 11:34 Freq: Status: Active Protocol: Document 11/26/23 10:30 DCW (Rec: 11/26/23 11:03 DCW [id number]) Manual Assessments Soft Tissue Assessment Soft Tissue Mobility Assessment Surgical incisions healed. No edema. PT-OP-G Mobility & Gait Start: 09/06/23 11:34 Freq: Status: Active Protocol: Document 11/26/23 10:30 DCW (Rec: 11/26/23 11:00 DCW [id number]) OP Gait Assessment Gait Gait Assistance Required: Independent Distance (Feet) 324 Able to Maintain Weight Bearing Status Yes During Gait Assistive Devices Assistive Device None Gait Deviations General Gait Pattern Antalgic,Decreased Stride Length,Decreased Feet Clearance,Flexed Trunk Factors Limiting Gait Function Factors Limiting Gait Function Decreased Activity Tolerance, Decreased Strength,Limited Range of Motion,Pain Comments Gait Comments Difficulty achieving R knee extension Stair Climbing Evaluation Evaluation Level of Assist On Stairs Independent Devices Stair Climbing Assistive Devices Left Railing,Right Railing Technique/Endurance Stair Climbing Direction Ascend and Descend Stair Climbing Technique Step Over Step Number of Steps Climbed 4 Stair Climbing Set # Repetitions (reps) 2 PT-OP-K Range of Motion Start: 09/06/23 11:34 Freq: Status: Active Protocol: Document 11/26/23 10:30 DCW (Rec: 11/26/23 11:00 DCW [id number]) Knee Goniometric Range of Motion Knee Right Patient Position Supine Flexion Active (degrees) 130 Extension Active (degrees) 1 Ankle and Foot Goniometric Range of Motion Ankle and Foot Right Active Testing Position Supine Dorsiflexion with Knee Flexed 10 Dorsiflexion with Knee Extended 8 Plantarflexion 42 Inversion 48 Eversion 11 PT-OP-M Strength Start: 09/06/23 11:34 Freq: Status: Active Protocol: Document 11/26/23 10:30 DCW (Rec: 11/26/23 11:00 DCW [id number]) Knee Strength Knee Manual Muscle Testing Right Flexion (S2) 4 Good Extension (L3) 4+ Good+ Ankle/Foot Strength Ankle and Foot Manual Muscle Testing Right Dorsiflexion (L4) 4+ Good+ Plantarflexion (S1) 3- Fair- Inversion 4 Good Eversion (S1) 4 Good PT-OP-Q Treatments Start: 09/06/23 11:34 Freq: Status: Active Protocol: Document 11/28/23 10:30 DCW (Rec: 11/28/23 11:15 DCW [id number]) Cardio Equipment Recumbent Elliptical (Biodex) Duration (Minutes) 6 Resistance 5 Seat Position 5 Gym Equipment Shuttle Recovery Bilateral Heel Raises Resistance 25# (one new) Unilateral squat Resistance 25# (one new) Reps/Time x15 Bilateral squat Resistance 50# (two new) Shuttle Recovery Platform Unstable Reps/Time x20 Therapeutic Exercises Sitting Exercises BAPS Sitting Exercise Name BAPS (standing) Side right Resistance Lv 4 Comments DF/PF, Inv/Ev, CW/CCW Manual Therapy Treatment Joint Mobilizations Right Knee Joint R knee Direction P<->A Grade III Body Position Sitting Manual Techniques Prone quad stretch Type Manual R knee flexion stretch Body Position Supine Reps/Duration 2x30 sec Other Other Manual Treatments Therapist-driven PROM of R ankle PT-OP-T Assessment and Plan Start: 09/06/23 11:34 Freq: Status: Active Protocol: Document 11/28/23 10:30 DCW (Rec: 11/28/23 11:15 DCW [id number]) Physical Therapy Assessment Impairments Impairments Activity Tolerance,Balance, Coordination,Edema,Functional Activities,Functional Mobility ,Gait,Pain,Posture,ROM,Soft Tissue Mobility,Strength Goals Walking Impairment Pt able to walk 5-6 min before need to sit at IE. Short Term Goal (STG) Pt able to ambulate 15 min before need to sit. STG Duration Met Half-Way Goal (LTG) Pt able to ambulate 30 min before need to sit. LTG Duration 01/25/24 ROM Impairment Pt with limitations at R knee and ankle ROM. Pushcart Peddler Goal (LTG) Pt with R knee and ankle ROM that is WFL. LTG Duration 01/25/24 - Improving Gait Impairment Pt ambulating with 4WW. Short Term Goal (STG) Pt able to ambulate safely with SPC. STG Duration Met Pushcart Peddler Goal (LTG) Pt able to ambulate safely without AD. LTG Duration 01/25/24 - Improving LEFS Impairment Pt with score of 12/80 on LEFS at IE Short Term Goal (STG) Pt with score of 35/80 10/07/23: Pt with gradual progression with score of 19/ 80. STG Duration 12/27/23 Half-Way Goal (LTG) Pt with score of 45/80 on LEFS LTG Duration 01/25/24 - Improving Strength Impairment Pt with 3/5 to 3+/5 R LE strength grossly. Short Term Goal (STG) Pt with 4-/5 to 4/5 R LE strength grossly. : Pt with improved strength compared to IE, progressing towards goal STG Duration 12/27/23 Pushcart Peddler Goal (LTG) Pt with 4+/5 to 5/5 R LE strength grossly. LTG Duration 01/25/24 - Improving Pain Impairment Pt with 9/10 at worst at IE. Short Term Goal (STG) Pt to report pain at 6/10 at the worst. STG Duration Met Half-Way Goal (LTG) Pt to report that pain is <1/ 10 at the worst. LTG Duration 01/25/24 - Improving Assessment Summary Assessment Pt tolerating treatment very well, showing good improvement in gait and functional mobilty. Physical Therapy Plan Frequency and Duration Frequency of Treatment 2x/Week Plan of Care Start Date 11/26/23 Plan of Care End Date 01/25/24 Therapeutic Interventions Therapeutic Interventions Balance Training,Coordination Training,Gait Training,Home Exercise Program,Joint Mobilizations,Manual Therapy, Neuromuscular Re-education, Patient/Caregiver Education, Self-Care/Home Management,Soft Tissue Mobilization,Taping, Therapeutic Activities, Therapeutic Exercises Modalities Cold Pack/Ice Massage,Electric Stimulation,Hot Packs, Ultrasound Next Visit Focus/Plan Next Note Type Treatment Note Next Visit Plan progress R LE strength and mobility, progress HEP
--- NOTE | 2023-12-18 11:13 | PT.OTN ---
Current Diagnoses Displaced spiral fracture of shaft of right tibia, subsequent encounter for closed fracture with routine healing (12/18/23) Physical Therapy Treatment Note PT-OP-A Visit Information Start: 09/06/23 11:34 Freq: Status: Active Protocol: Document 12/18/23 10:30 DCW (Rec: 12/18/23 11:13 DCW [id number]) Out-Patient Physical Therapy Visit Information Visit Information Visit Type Treatment Note Visit Start Time 10:30 Visit Stop Time 11:15 Visit Number 16 Number of MECHANICAL APPRENTICE Visits 0 Evaluation Information Evaluation Date 09/06/23 PT-OP-B Current Condition Start: 09/06/23 11:34 Freq: Status: Active Protocol: Document 09/27/23 14:20 AM (Rec: 09/27/23 16:39 AM [id number]) Current Condition History of Current Condition Onset Date 07/22/23 Current Complaints R Lower leg pain from recent fracture History of Current Condition Pt fractured R tib-fib on . Pt had surgical repair on 07/23/23. Pt was TDWB, though now WBAT. Pt slipped on a step and fell. Pt had previous issue of R knee giving out on her. Pt reports that she had a fall 2 months prior. Prior Treatments and Tests Intramedullary nail PT-OP-C Subjective Start: 09/06/23 11:34 Freq: Status: Active Protocol: Document 12/18/23 10:30 DCW (Rec: 12/18/23 11:13 DCW [id number]) OP-PT Subjective Patient Comments Patient Comments It's been pretty sore. I've been trying to walk more at home. PT-OP-D Balance Start: 09/06/23 11:34 Freq: Status: Active Protocol: Document 11/26/23 10:30 DCW (Rec: 11/26/23 11:00 DCW [id number]) OP-PT Balance Assessment Sitting Balance Static Sitting Balance Ability Normal Dynamic Sitting Balance Ability Normal Standing Balance Static Standing Balance Ability Good Dynamic Standing Balance Ability Fair Device Used SPC, none Vargas Fall Scale Copyright Permission PT-OP-E Functional Tests Start: 09/06/23 11:34 Freq: Status: Active Protocol: Document 11/26/23 10:30 DCW (Rec: 11/26/23 11:03 DCW [id number]) Functional Tests 2 Minute Walk Test Distance 324' Device Used None Comments 2.7 ft/sec Dynamic Gait Index (DGI) Score DGI Impairment Rating 20 to <40% Impaired (Score 15- 19) PT-OP-F Manual Assessment Start: 09/06/23 11:34 Freq: Status: Active Protocol: Document 11/26/23 10:30 DCW (Rec: 11/26/23 11:03 DCW [id number]) Manual Assessments Soft Tissue Assessment Soft Tissue Mobility Assessment Surgical incisions healed. No edema. PT-OP-G Mobility & Gait Start: 09/06/23 11:34 Freq: Status: Active Protocol: Document 11/26/23 10:30 DCW (Rec: 11/26/23 11:00 DCW [id number]) OP Gait Assessment Gait Gait Assistance Required: Independent Distance (Feet) 324 Able to Maintain Weight Bearing Status Yes During Gait Assistive Devices Assistive Device None Gait Deviations General Gait Pattern Antalgic,Decreased Stride Length,Decreased Feet Clearance,Flexed Trunk Factors Limiting Gait Function Factors Limiting Gait Function Decreased Activity Tolerance, Decreased Strength,Limited Range of Motion,Pain Comments Gait Comments Difficulty achieving R knee extension Stair Climbing Evaluation Evaluation Level of Assist On Stairs Independent Devices Stair Climbing Assistive Devices Left Railing,Right Railing Technique/Endurance Stair Climbing Direction Ascend and Descend Stair Climbing Technique Step Over Step Number of Steps Climbed 4 Stair Climbing Set # Repetitions (reps) 2 PT-OP-K Range of Motion Start: 09/06/23 11:34 Freq: Status: Active Protocol: Document 11/26/23 10:30 DCW (Rec: 11/26/23 11:00 DCW [id number]) Knee Goniometric Range of Motion Knee Right Patient Position Supine Flexion Active (degrees) 130 Extension Active (degrees) 1 Ankle and Foot Goniometric Range of Motion Ankle and Foot Right Active Testing Position Supine Dorsiflexion with Knee Flexed 10 Dorsiflexion with Knee Extended 8 Plantarflexion 42 Inversion 48 Eversion 11 PT-OP-M Strength Start: 09/06/23 11:34 Freq: Status: Active Protocol: Document 11/26/23 10:30 DCW (Rec: 11/26/23 11:00 DCW [id number]) Knee Strength Knee Manual Muscle Testing Right Flexion (S2) 4 Good Extension (L3) 4+ Good+ Ankle/Foot Strength Ankle and Foot Manual Muscle Testing Right Dorsiflexion (L4) 4+ Good+ Plantarflexion (S1) 3- Fair- Inversion 4 Good Eversion (S1) 4 Good PT-OP-Q Treatments Start: 09/06/23 11:34 Freq: Status: Active Protocol: Document 12/18/23 10:30 DCW (Rec: 12/18/23 11:13 DCW [id number]) Cardio Equipment Recumbent Bicycle Duration (Minutes) 6 Resistance 3 Seat Position 1+Backrest Gym Equipment Shuttle Recovery Bilateral Heel Raises Resistance 25# (one new) Unilateral squat Resistance 25# (one new) Reps/Time x15 Bilateral squat Resistance 50# (two new) Shuttle Recovery Platform Unstable Reps/Time x20 Therapeutic Exercises Sitting Exercises BAPS Sitting Exercise Name BAPS (standing) Side right Resistance Lv 4 Comments DF/PF, Inv/Ev, CW/CCW Manual Therapy Treatment Soft Tissue Mobilization R LE Body Location STM at gastroc, ant tib Mobilization Type Myofascial Release,Sustained Pressure,Trigger Point Release Intensity/Depth Moderate Body Position Sitting Joint Mobilizations Right Knee Joint R knee Direction P<->A Grade III Body Position Sitting Other Other Manual Treatments Therapist-driven PROM of R ankle PT-OP-T Assessment and Plan Start: 09/06/23 11:34 Freq: Status: Active Protocol: Document 12/18/23 10:30 DCW (Rec: 12/18/23 11:13 DCW [id number]) Physical Therapy Assessment Impairments Impairments Activity Tolerance,Balance, Coordination,Edema,Functional Activities,Functional Mobility ,Gait,Pain,Posture,ROM,Soft Tissue Mobility,Strength Goals Walking Impairment Pt able to walk 5-6 min before need to sit at IE. Short Term Goal (STG) Pt able to ambulate 15 min before need to sit. STG Duration Met Nursing Home Goal (LTG) Pt able to ambulate 30 min before need to sit. LTG Duration 01/25/24 ROM Impairment Pt with limitations at R knee and ankle ROM. Nursing Home Goal (LTG) Pt with R knee and ankle ROM that is WFL. LTG Duration 01/25/24 - Improving Gait Impairment Pt ambulating with 4WW. Short Term Goal (STG) Pt able to ambulate safely with SPC. STG Duration Met Nursing Home Goal (LTG) Pt able to ambulate safely without AD. LTG Duration 01/25/24 - Improving LEFS Impairment Pt with score of 12/80 on LEFS at IE Short Term Goal (STG) Pt with score of 35/80 10/07/23: Pt with gradual progression with score of 19/ 80. STG Duration 12/27/23 Nursing Home Goal (LTG) Pt with score of 45/80 on LEFS LTG Duration 01/25/24 - Improving Strength Impairment Pt with 3/5 to 3+/5 R LE strength grossly. Short Term Goal (STG) Pt with 4-/5 to 4/5 R LE strength grossly. : Pt with improved strength compared to IE, progressing towards goal STG Duration 12/27/23 Fiber Product Cutting Machine Operator Goal (LTG) Pt with 4+/5 to 5/5 R LE strength grossly. LTG Duration 01/25/24 - Improving Pain Impairment Pt with 9/10 at worst at IE. Short Term Goal (STG) Pt to report pain at 6/10 at the worst. STG Duration Met Nursing Home Goal (LTG) Pt to report that pain is <1/ 10 at the worst. LTG Duration 01/25/24 - Improving Assessment Summary Assessment Improving gait and functional mobility of ankle. Good response to STM and joint mobilizations. Work on further gait training to improve stance phase on right foot. Physical Therapy Plan Frequency and Duration Frequency of Treatment 2x/Week Plan of Care Start Date 11/26/23 Plan of Care End Date 01/25/24 Therapeutic Interventions Therapeutic Interventions Balance Training,Coordination Training,Gait Training,Home Exercise Program,Joint Mobilizations,Manual Therapy, Neuromuscular Re-education, Patient/Caregiver Education, Self-Care/Home Management,Soft Tissue Mobilization,Taping, Therapeutic Activities, Therapeutic Exercises Modalities Cold Pack/Ice Massage,Electric Stimulation,Hot Packs, Ultrasound Next Visit Focus/Plan Next Note Type Treatment Note Next Visit Plan progress R LE strength and mobility, progress HEP
--- NOTE | 2023-12-20 10:34 | PT.OTN ---
Current Diagnoses Displaced spiral fracture of shaft of right tibia, subsequent encounter for closed fracture with routine healing (12/20/23) Physical Therapy Treatment Note PT-OP-A Visit Information Start: 09/06/23 11:34 Freq: Status: Active Protocol: Document 12/20/23 09:52 SP (Rec: 12/20/23 10:37 SP [id number]) Out-Patient Physical Therapy Visit Information Visit Information Visit Type Treatment Note Visit Note 12/28 post PN Visit Start Time 09:52 Visit Stop Time 10:34 Visit Number 17 Number of MAIL HANDLERS SUPERVISOR Visits 1 Evaluation Information Evaluation Date 09/06/23 PT-OP-B Current Condition Start: 09/06/23 11:34 Freq: Status: Active Protocol: Document 09/27/23 14:20 AM (Rec: 09/27/23 16:39 AM [id number]) Current Condition History of Current Condition Onset Date 07/22/23 Current Complaints R Lower leg pain from recent fracture History of Current Condition Pt fractured R tib-fib on . Pt had surgical repair on 07/23/23. Pt was TDWB, though now WBAT. Pt slipped on a step and fell. Pt had previous issue of R knee giving out on her. Pt reports that she had a fall 2 months prior. Prior Treatments and Tests Intramedullary nail PT-OP-C Subjective Start: 09/06/23 11:34 Freq: Status: Active Protocol: Document 12/20/23 09:52 SP (Rec: 12/20/23 10:37 SP [id number]) OP-PT Subjective Patient Comments Patient Comments Pt arrives with wide base 3WW light contact. Legs tiring arrival, thinks still recoverying from last tx Wed and [place] alot [place] and err[place]. Back of calves little sore from PT and manual massage. PT-OP-D Balance Start: 09/06/23 11:34 Freq: Status: Active Protocol: Document 11/26/23 10:30 DCW (Rec: 11/26/23 11:00 DCW [id number]) OP-PT Balance Assessment Sitting Balance Static Sitting Balance Ability Normal Dynamic Sitting Balance Ability Normal Standing Balance Static Standing Balance Ability Good Dynamic Standing Balance Ability Fair Device Used SPC, none Vargas Fall Scale Copyright Permission PT-OP-E Functional Tests Start: 09/06/23 11:34 Freq: Status: Active Protocol: Document 11/26/23 10:30 DCW (Rec: 11/26/23 11:03 DCW [id number]) Functional Tests 2 Minute Walk Test Distance 324' Device Used None Comments 2.7 ft/sec Dynamic Gait Index (DGI) Score DGI Impairment Rating 20 to <40% Impaired (Score 15- 19) PT-OP-F Manual Assessment Start: 09/06/23 11:34 Freq: Status: Active Protocol: Document 11/26/23 10:30 DCW (Rec: 11/26/23 11:03 DCW [id number]) Manual Assessments Soft Tissue Assessment Soft Tissue Mobility Assessment Surgical incisions healed. No edema. PT-OP-G Mobility & Gait Start: 09/06/23 11:34 Freq: Status: Active Protocol: Document 11/26/23 10:30 DCW (Rec: 11/26/23 11:00 DCW [id number]) OP Gait Assessment Gait Gait Assistance Required: Independent Distance (Feet) 324 Able to Maintain Weight Bearing Status Yes During Gait Assistive Devices Assistive Device None Gait Deviations General Gait Pattern Antalgic,Decreased Stride Length,Decreased Feet Clearance,Flexed Trunk Factors Limiting Gait Function Factors Limiting Gait Function Decreased Activity Tolerance, Decreased Strength,Limited Range of Motion,Pain Comments Gait Comments Difficulty achieving R knee extension Stair Climbing Evaluation Evaluation Level of Assist On Stairs Independent Devices Stair Climbing Assistive Devices Left Railing,Right Railing Technique/Endurance Stair Climbing Direction Ascend and Descend Stair Climbing Technique Step Over Step Number of Steps Climbed 4 Stair Climbing Set # Repetitions (reps) 2 PT-OP-K Range of Motion Start: 09/06/23 11:34 Freq: Status: Active Protocol: Document 11/26/23 10:30 DCW (Rec: 11/26/23 11:00 DCW [id number]) Knee Goniometric Range of Motion Knee Right Patient Position Supine Flexion Active (degrees) 130 Extension Active (degrees) 1 Ankle and Foot Goniometric Range of Motion Ankle and Foot Right Active Testing Position Supine Dorsiflexion with Knee Flexed 10 Dorsiflexion with Knee Extended 8 Plantarflexion 42 Inversion 48 Eversion 11 PT-OP-M Strength Start: 09/06/23 11:34 Freq: Status: Active Protocol: Document 11/26/23 10:30 DCW (Rec: 11/26/23 11:00 DCW [id number]) Knee Strength Knee Manual Muscle Testing Right Flexion (S2) 4 Good Extension (L3) 4+ Good+ Ankle/Foot Strength Ankle and Foot Manual Muscle Testing Right Dorsiflexion (L4) 4+ Good+ Plantarflexion (S1) 3- Fair- Inversion 4 Good Eversion (S1) 4 Good PT-OP-Q Treatments Start: 09/06/23 11:34 Freq: Status: Active Protocol: Document 12/20/23 09:52 SP (Rec: 12/20/23 10:37 SP [id number]) Cardio Equipment Recumbent Bicycle Duration (Minutes) 6 Resistance 4>3 at 2 min Seat Position 1+Lrg Backrest Gym Equipment Shuttle Recovery Bilateral Heel Raises Resistance 25# (one new) Shuttle Recovery Platform Stable Reps/Time x20 Unilateral squat Resistance 25# (one new) Shuttle Recovery Platform Stable Reps/Time x20 Bilateral squat Resistance 50# (two new) Shuttle Recovery Platform Unstable Reps/Time 10 stable, x20 unstable Therapeutic Exercises Sitting Exercises BAPS Sitting Exercise Name BAPS (standing) Side right Resistance Lv 4 Reps/Minutes 10 reps each direction- cues slower pacing Comments DF/PF, Inv/Ev, CW/CCW Standing Exercises knee/ankle mobility Standing Exercise Name trialed in PT Equipment Used on 2nd step, contact rail Reps/Minutes 5 reps x2- painfree reported Comments good feedback knee ROM flexion and ankle movement noted eccentric calf raise Standing Exercise Name trialed in PT: DL lift, wt shift over R eccentric DF lower to floor Equipment Used contact table Comments DL con> less RLE eccentric lower: feet // & toe out pos Manual Therapy Treatment Soft Tissue Mobilization R LE Body Location STM at gastroc, ant tib Mobilization Type Instrument Assisted,Myofascial Release,Sustained Pressure Intensity/Depth Moderate Body Position Sitting Comments manual and ed self use rolling pin, tennis ball under calf long axis gentle pressure- good feedback painfree- preferred rolling pin response . Joint Mobilizations R ankle Joint MTP forefoot rotation, 1-4 A<> P, talocrual post glide, calcaleal med/ lat Grade II Reps/Duration 2 min R Comments manual supine and self performance Right Knee Joint R knee Direction P<->A Grade II Body Position Sitting Comments manual into flexion ROM, femor in tibial glide. PT-OP-T Assessment and Plan Start: 09/06/23 11:34 Freq: Status: Active Protocol: Document 12/20/23 09:52 SP (Rec: 12/20/23 10:37 SP [id number]) Physical Therapy Assessment Goals Walking Impairment Pt able to walk 5-6 min before need to sit at IE. Short Term Goal (STG) Pt able to ambulate 15 min before need to sit. STG Duration Met Detention Goal (LTG) Pt able to ambulate 30 min before need to sit. LTG Duration 01/25/24 ROM Impairment Pt with limitations at R knee and ankle ROM. Detention Goal (LTG) Pt with R knee and ankle ROM that is WFL. LTG Duration 01/25/24 - Improving Gait Impairment Pt ambulating with 4WW. Short Term Goal (STG) Pt able to ambulate safely with SPC. STG Duration Met Corporate Logistics Manager Goal (LTG) Pt able to ambulate safely without AD. LTG Duration 01/25/24 - Improving LEFS Impairment Pt with score of 12/80 on LEFS at IE Short Term Goal (STG) Pt with score of 35/80 10/07/23: Pt with gradual progression with score of 19/ 80. STG Duration 12/27/23 Corporate Logistics Manager Goal (LTG) Pt with score of 45/80 on LEFS LTG Duration 01/25/24 - Improving Strength Impairment Pt with 3/5 to 3+/5 R LE strength grossly. Short Term Goal (STG) Pt with 4-/5 to 4/5 R LE strength grossly. : Pt with improved strength compared to IE, progressing towards goal STG Duration 12/27/23 Corporate Logistics Manager Goal (LTG) Pt with 4+/5 to 5/5 R LE strength grossly. LTG Duration 01/25/24 - Improving Pain Impairment Pt with 9/10 at worst at IE. Short Term Goal (STG) Pt to report pain at 6/10 at the worst. STG Duration Met Detention Goal (LTG) Pt to report that pain is <1/ 10 at the worst. LTG Duration 01/25/24 - Improving Assessment Summary Assessment Pt good response to manual and ed how can carryover self home understanding, gentle care. Pt improved R calf eccentric strengthening with UE support and ed less LLE WB wt shift over R. Continues to lack calf concentric strength into toe off gait phase but utilized UE contact light 3WW for self carryover emphasis. She would benefit from continued gradual progression eccentric strengthening to improve normalizing gait phases. Physical Therapy Plan Frequency and Duration Frequency of Treatment 2x/Week Plan of Care Start Date 11/26/23 Plan of Care End Date 01/25/24 Therapeutic Interventions Therapeutic Interventions Balance Training,Coordination Training,Gait Training,Home Exercise Program,Joint Mobilizations,Manual Therapy, Neuromuscular Re-education, Patient/Caregiver Education, Self-Care/Home Management,Soft Tissue Mobilization,Taping, Therapeutic Activities, Therapeutic Exercises Modalities Cold Pack/Ice Massage,Electric Stimulation,Hot Packs, Ultrasound Next Visit Focus/Plan Next Note Type Treatment Note Next Visit Plan recheck eccentric heel raises strengthening. POC: progress R LE strength and mobility, progress HEP
--- NOTE | 2023-12-27 10:29 | PT.OTN ---
Current Diagnoses Displaced spiral fracture of shaft of right tibia, subsequent encounter for closed fracture with routine healing (12/27/23) Physical Therapy Treatment Note PT-OP-A Visit Information Start: 09/06/23 11:34 Freq: Status: Active Protocol: Document 12/27/23 09:48 DCW (Rec: 12/27/23 10:29 DCW [id number]) Out-Patient Physical Therapy Visit Information Visit Information Visit Type Treatment Note Visit Note 02/25 post PN Visit Start Time 09:52 Visit Stop Time 10:30 Visit Number 19 Number of SOAKER Visits 0 Evaluation Information Evaluation Date 09/06/23 PT-OP-B Current Condition Start: 09/06/23 11:34 Freq: Status: Active Protocol: Document 09/27/23 14:20 AM (Rec: 09/27/23 16:39 AM [id number]) Current Condition History of Current Condition Onset Date 07/22/23 Current Complaints R Lower leg pain from recent fracture History of Current Condition Pt fractured R tib-fib on . Pt had surgical repair on 07/23/23. Pt was TDWB, though now WBAT. Pt slipped on a step and fell. Pt had previous issue of R knee giving out on her. Pt reports that she had a fall 2 months prior. Prior Treatments and Tests Intramedullary nail PT-OP-C Subjective Start: 09/06/23 11:34 Freq: Status: Active Protocol: Document 12/27/23 09:48 DCW (Rec: 12/27/23 10:29 DCW [id number]) OP-PT Subjective Patient Comments Patient Comments I've been trying to do work with my legs, but my knee is acting weird again. It's not as bad as it was, but it is starting to get pain again. PT-OP-D Balance Start: 09/06/23 11:34 Freq: Status: Active Protocol: Document 11/26/23 10:30 DCW (Rec: 11/26/23 11:00 DCW [id number]) OP-PT Balance Assessment Sitting Balance Static Sitting Balance Ability Normal Dynamic Sitting Balance Ability Normal Standing Balance Static Standing Balance Ability Good Dynamic Standing Balance Ability Fair Device Used SPC, none Vargas Fall Scale Copyright Permission PT-OP-E Functional Tests Start: 09/06/23 11:34 Freq: Status: Active Protocol: Document 11/26/23 10:30 DCW (Rec: 11/26/23 11:03 DCW [id number]) Functional Tests 2 Minute Walk Test Distance 324' Device Used None Comments 2.7 ft/sec Dynamic Gait Index (DGI) Score DGI Impairment Rating 20 to <40% Impaired (Score 15- 19) PT-OP-F Manual Assessment Start: 09/06/23 11:34 Freq: Status: Active Protocol: Document 11/26/23 10:30 DCW (Rec: 11/26/23 11:03 DCW [id number]) Manual Assessments Soft Tissue Assessment Soft Tissue Mobility Assessment Surgical incisions healed. No edema. PT-OP-G Mobility & Gait Start: 09/06/23 11:34 Freq: Status: Active Protocol: Document 11/26/23 10:30 DCW (Rec: 11/26/23 11:00 DCW [id number]) OP Gait Assessment Gait Gait Assistance Required: Independent Distance (Feet) 324 Able to Maintain Weight Bearing Status Yes During Gait Assistive Devices Assistive Device None Gait Deviations General Gait Pattern Antalgic,Decreased Stride Length,Decreased Feet Clearance,Flexed Trunk Factors Limiting Gait Function Factors Limiting Gait Function Decreased Activity Tolerance, Decreased Strength,Limited Range of Motion,Pain Comments Gait Comments Difficulty achieving R knee extension Stair Climbing Evaluation Evaluation Level of Assist On Stairs Independent Devices Stair Climbing Assistive Devices Left Railing,Right Railing Technique/Endurance Stair Climbing Direction Ascend and Descend Stair Climbing Technique Step Over Step Number of Steps Climbed 4 Stair Climbing Set # Repetitions (reps) 2 PT-OP-K Range of Motion Start: 09/06/23 11:34 Freq: Status: Active Protocol: Document 11/26/23 10:30 DCW (Rec: 11/26/23 11:00 DCW [id number]) Knee Goniometric Range of Motion Knee Right Patient Position Supine Flexion Active (degrees) 130 Extension Active (degrees) 1 Ankle and Foot Goniometric Range of Motion Ankle and Foot Right Active Testing Position Supine Dorsiflexion with Knee Flexed 10 Dorsiflexion with Knee Extended 8 Plantarflexion 42 Inversion 48 Eversion 11 PT-OP-M Strength Start: 09/06/23 11:34 Freq: Status: Active Protocol: Document 11/26/23 10:30 DCW (Rec: 11/26/23 11:00 DCW [id number]) Knee Strength Knee Manual Muscle Testing Right Flexion (S2) 4 Good Extension (L3) 4+ Good+ Ankle/Foot Strength Ankle and Foot Manual Muscle Testing Right Dorsiflexion (L4) 4+ Good+ Plantarflexion (S1) 3- Fair- Inversion 4 Good Eversion (S1) 4 Good PT-OP-Q Treatments Start: 09/06/23 11:34 Freq: Status: Active Protocol: Document 12/27/23 09:48 DCW (Rec: 12/27/23 10:29 DCW [id number]) Cardio Equipment Recumbent Bicycle Duration (Minutes) 6 Resistance 4 Seat Position 1+Lrg Backrest Gym Equipment Shuttle Recovery Bilateral Heel Raises Resistance 37# (one new) Shuttle Recovery Platform Stable Reps/Time x20 Unilateral squat Resistance 37# (one new) Shuttle Recovery Platform Stable Reps/Time x20 Bilateral squat Resistance 62# (two new) Shuttle Recovery Platform Stable Therapeutic Exercises Sitting Exercises BAPS Sitting Exercise Name BAPS (standing) Side right Resistance Lv 4 Reps/Minutes 10 reps each direction- cues slower pacing Comments DF/PF, Inv/Ev, CW/CCW Other Exercises BOSU Lunge Other Exercise Name BOSU Lunge Equipment Used Blue BOSU Manual Therapy Treatment Soft Tissue Mobilization R LE Body Location STM at gastroc, ant tib Mobilization Type Myofascial Release,Sustained Pressure,Trigger Point Release Intensity/Depth Moderate Body Position Sitting Joint Mobilizations Right Knee Joint R knee Direction P<->A Grade III Body Position Sitting PT-OP-T Assessment and Plan Start: 09/06/23 11:34 Freq: Status: Active Protocol: Document 12/27/23 09:48 DCW (Rec: 12/27/23 10:29 [facility] [id number]) Physical Therapy Assessment Impairments Impairments Activity Tolerance,Balance, Coordination,Edema,Functional Activities,Functional Mobility ,Gait,Pain,Posture,ROM,Soft Tissue Mobility,Strength Goals Walking Impairment Pt able to walk 5-6 min before need to sit at IE. Short Term Goal (STG) Pt able to ambulate 15 min before need to sit. STG Duration Met Captain Cannery Tender Goal (LTG) Pt able to ambulate 30 min before need to sit. LTG Duration 01/25/24 ROM Impairment Pt with limitations at R knee and ankle ROM. Captain Cannery Tender Goal (LTG) Pt with R knee and ankle ROM that is WFL. LTG Duration 01/25/24 - Improving Gait Impairment Pt ambulating with 4WW. Short Term Goal (STG) Pt able to ambulate safely with SPC. STG Duration Met [facility] Goal (LTG) Pt able to ambulate safely without AD. LTG Duration 01/25/24 - Improving LEFS Impairment Pt with score of 12/80 on LEFS at IE Short Term Goal (STG) Pt with score of 35/80 10/07/23: Pt with gradual progression with score of 19/ 80. STG Duration 12/27/23 [facility] Goal (LTG) Pt with score of 45/80 on LEFS LTG Duration 01/25/24 - Improving Strength Impairment Pt with 3/5 to 3+/5 R LE strength grossly. Short Term Goal (STG) Pt with 4-/5 to 4/5 R LE strength grossly. : Pt with improved strength compared to IE, progressing towards goal STG Duration 12/27/23 Captain Cannery Tender Goal (LTG) Pt with 4+/5 to 5/5 R LE strength grossly. LTG Duration 01/25/24 - Improving Pain Impairment Pt with 9/10 at worst at IE. Short Term Goal (STG) Pt to report pain at 6/10 at the worst. STG Duration Met [facility] Goal (LTG) Pt to report that pain is <1/ 10 at the worst. LTG Duration 01/25/24 - Improving Assessment Summary Assessment Tolerated increased resistance on leg press well, no complaints of increased pain. Doing well overall with HEP. Physical Therapy Plan Frequency and Duration Frequency of Treatment 2x/Week Plan of Care Start Date 11/26/23 Plan of Care End Date 01/25/24 Therapeutic Interventions Therapeutic Interventions Balance Training,Coordination Training,Gait Training,Home Exercise Program,Joint Mobilizations,Manual Therapy, Neuromuscular Re-education, Patient/Caregiver Education, Self-Care/Home Management,Soft Tissue Mobilization,Taping, Therapeutic Activities, Therapeutic Exercises Modalities Cold Pack/Ice Massage,Electric Stimulation,Hot Packs, Ultrasound Next Visit Focus/Plan Next Note Type Treatment Note Next Visit Plan recheck eccentric heel raises strengthening. POC: progress R LE strength and mobility, progress HEP
--- NOTE | 2023-12-30 11:11 | PT.OTN ---
Current Diagnoses Displaced spiral fracture of shaft of right tibia, subsequent encounter for closed fracture with routine healing (12/30/23) Physical Therapy Treatment Note PT-OP-A Visit Information Start: 09/06/23 11:34 Freq: Status: Active Protocol: Document 12/30/23 10:30 DCW (Rec: 12/30/23 11:11 DCW [id number]) Out-Patient Physical Therapy Visit Information Visit Information Visit Type Treatment Note Visit Note 03/27 post PN Visit Start Time 10:30 Visit Stop Time 11:15 Visit Number 19 Number of REFRIGERATOR CRATER Visits 0 Evaluation Information Evaluation Date 09/06/23 PT-OP-B Current Condition Start: 09/06/23 11:34 Freq: Status: Active Protocol: Document 09/27/23 14:20 AM (Rec: 09/27/23 16:39 AM [id number]) Current Condition History of Current Condition Onset Date 07/22/23 Current Complaints R Lower leg pain from recent fracture History of Current Condition Pt fractured R tib-fib on . Pt had surgical repair on 07/23/23. Pt was TDWB, though now WBAT. Pt slipped on a step and fell. Pt had previous issue of R knee giving out on her. Pt reports that she had a fall 2 months prior. Prior Treatments and Tests Intramedullary nail PT-OP-C Subjective Start: 09/06/23 11:34 Freq: Status: Active Protocol: Document 12/30/23 10:30 DCW (Rec: 12/30/23 11:11 DCW [id number]) OP-PT Subjective Patient Comments Patient Comments You kicked my butt Saturday, I' m still feeling it. PT-OP-D Balance Start: 09/06/23 11:34 Freq: Status: Active Protocol: Document 11/26/23 10:30 DCW (Rec: 11/26/23 11:00 DCW [id number]) OP-PT Balance Assessment Sitting Balance Static Sitting Balance Ability Normal Dynamic Sitting Balance Ability Normal Standing Balance Static Standing Balance Ability Good Dynamic Standing Balance Ability Fair Device Used SPC, none Vargas Fall Scale Copyright Permission PT-OP-E Functional Tests Start: 09/06/23 11:34 Freq: Status: Active Protocol: Document 11/26/23 10:30 DCW (Rec: 11/26/23 11:03 DCW [id number]) Functional Tests 2 Minute Walk Test Distance 324' Device Used None Comments 2.7 ft/sec Dynamic Gait Index (DGI) Score DGI Impairment Rating 20 to <40% Impaired (Score 15- 19) PT-OP-F Manual Assessment Start: 09/06/23 11:34 Freq: Status: Active Protocol: Document 11/26/23 10:30 DCW (Rec: 11/26/23 11:03 DCW [id number]) Manual Assessments Soft Tissue Assessment Soft Tissue Mobility Assessment Surgical incisions healed. No edema. PT-OP-G Mobility & Gait Start: 09/06/23 11:34 Freq: Status: Active Protocol: Document 11/26/23 10:30 DCW (Rec: 11/26/23 11:00 DCW [id number]) OP Gait Assessment Gait Gait Assistance Required: Independent Distance (Feet) 324 Able to Maintain Weight Bearing Status Yes During Gait Assistive Devices Assistive Device None Gait Deviations General Gait Pattern Antalgic,Decreased Stride Length,Decreased Feet Clearance,Flexed Trunk Factors Limiting Gait Function Factors Limiting Gait Function Decreased Activity Tolerance, Decreased Strength,Limited Range of Motion,Pain Comments Gait Comments Difficulty achieving R knee extension Stair Climbing Evaluation Evaluation Level of Assist On Stairs Independent Devices Stair Climbing Assistive Devices Left Railing,Right Railing Technique/Endurance Stair Climbing Direction Ascend and Descend Stair Climbing Technique Step Over Step Number of Steps Climbed 4 Stair Climbing Set # Repetitions (reps) 2 PT-OP-K Range of Motion Start: 09/06/23 11:34 Freq: Status: Active Protocol: Document 11/26/23 10:30 DCW (Rec: 11/26/23 11:00 DCW [id number]) Knee Goniometric Range of Motion Knee Right Patient Position Supine Flexion Active (degrees) 130 Extension Active (degrees) 1 Ankle and Foot Goniometric Range of Motion Ankle and Foot Right Active Testing Position Supine Dorsiflexion with Knee Flexed 10 Dorsiflexion with Knee Extended 8 Plantarflexion 42 Inversion 48 Eversion 11 PT-OP-M Strength Start: 09/06/23 11:34 Freq: Status: Active Protocol: Document 11/26/23 10:30 DCW (Rec: 11/26/23 11:00 DCW [id number]) Knee Strength Knee Manual Muscle Testing Right Flexion (S2) 4 Good Extension (L3) 4+ Good+ Ankle/Foot Strength Ankle and Foot Manual Muscle Testing Right Dorsiflexion (L4) 4+ Good+ Plantarflexion (S1) 3- Fair- Inversion 4 Good Eversion (S1) 4 Good PT-OP-Q Treatments Start: 09/06/23 11:34 Freq: Status: Active Protocol: Document 12/30/23 10:30 DCW (Rec: 12/30/23 11:11 DCW [id number]) Cardio Equipment Recumbent Bicycle Duration (Minutes) 6 Resistance 4 Seat Position 3+Lrg Backrest Gym Equipment Shuttle Recovery Bilateral Heel Raises Resistance 25# (one new) Shuttle Recovery Platform Stable Reps/Time x20 Unilateral squat Resistance 25# (one new) Shuttle Recovery Platform Stable Reps/Time x20 Bilateral squat Resistance 50# (two new) Shuttle Recovery Platform Unstable Therapeutic Exercises Sitting Exercises BAPS Sitting Exercise Name BAPS (standing) Side right Resistance Lv 4 Reps/Minutes 10 reps each direction- cues slower pacing Comments DF/PF, Inv/Ev, CW/CCW Manual Therapy Treatment Soft Tissue Mobilization R LE Body Location STM at gastroc, ant tib Mobilization Type Myofascial Release,Sustained Pressure,Trigger Point Release Intensity/Depth Moderate Body Position Sitting Joint Mobilizations Right Knee Joint R knee Direction P<->A Grade III Body Position Sitting Neuro Re-Education Treatment Balance Activities SLS Details SLS Surface Blue Foam PT-OP-T Assessment and Plan Start: 09/06/23 11:34 Freq: Status: Active Protocol: Document 12/30/23 10:30 DCW (Rec: 12/30/23 11:11 DCW [id number]) Physical Therapy Assessment Impairments Impairments Activity Tolerance,Balance, Coordination,Edema,Functional Activities,Functional Mobility ,Gait,Pain,Posture,ROM,Soft Tissue Mobility,Strength Goals Walking Impairment Pt able to walk 5-6 min before need to sit at IE. Short Term Goal (STG) Pt able to ambulate 15 min before need to sit. STG Duration Met Custodial Goal (LTG) Pt able to ambulate 30 min before need to sit. LTG Duration 01/25/24 ROM Impairment Pt with limitations at R knee and ankle ROM. Financial Foundations Associate Goal (LTG) Pt with R knee and ankle ROM that is WFL. LTG Duration 01/25/24 - Improving Gait Impairment Pt ambulating with 4WW. Short Term Goal (STG) Pt able to ambulate safely with SPC. STG Duration Met Financial Foundations Associate Goal (LTG) Pt able to ambulate safely without AD. LTG Duration 01/25/24 - Improving LEFS Impairment Pt with score of 12/80 on LEFS at IE Short Term Goal (STG) Pt with score of 35/80 10/07/23: Pt with gradual progression with score of 19/ 80. STG Duration 12/27/23 Custodial Goal (LTG) Pt with score of 45/80 on LEFS LTG Duration 01/25/24 - Improving Strength Impairment Pt with 3/5 to 3+/5 R LE strength grossly. Short Term Goal (STG) Pt with 4-/5 to 4/5 R LE strength grossly. : Pt with improved strength compared to IE, progressing towards goal STG Duration 12/27/23 Custodial Goal (LTG) Pt with 4+/5 to 5/5 R LE strength grossly. LTG Duration 01/25/24 - Improving Pain Impairment Pt with 9/10 at worst at IE. Short Term Goal (STG) Pt to report pain at 6/10 at the worst. STG Duration Met Custodial Goal (LTG) Pt to report that pain is <1/ 10 at the worst. LTG Duration 01/25/24 - Improving Assessment Summary Assessment Decreased resistance again secondary to pt's response after last visit. Still doing well overall, but experiencing increased ankle pain. Physical Therapy Plan Frequency and Duration Frequency of Treatment 2x/Week Plan of Care Start Date 11/26/23 Plan of Care End Date 01/25/24 Therapeutic Interventions Therapeutic Interventions Balance Training,Coordination Training,Gait Training,Home Exercise Program,Joint Mobilizations,Manual Therapy, Neuromuscular Re-education, Patient/Caregiver Education, Self-Care/Home Management,Soft Tissue Mobilization,Taping, Therapeutic Activities, Therapeutic Exercises Modalities Cold Pack/Ice Massage,Electric Stimulation,Hot Packs, Ultrasound Next Visit Focus/Plan Next Note Type Treatment Note Next Visit Plan recheck eccentric heel raises strengthening. POC: progress R LE strength and mobility, progress HEP
--- NOTE | 2024-01-06 11:13 | PT.OTN ---
Current Diagnoses Displaced spiral fracture of shaft of right tibia, subsequent encounter for closed fracture with routine healing (01/06/24) Physical Therapy Treatment Note PT-OP-A Visit Information Start: 09/06/23 11:34 Freq: Status: Active Protocol: Document 01/06/24 10:30 DCW (Rec: 01/06/24 11:13 DCW [id number]) Out-Patient Physical Therapy Visit Information Visit Information Visit Type Treatment Note Visit Note 04/27 post PN Visit Start Time 10:30 Visit Stop Time 11:15 Visit Number 20 Number of MAIL AGENT Visits 0 Evaluation Information Evaluation Date 09/06/23 PT-OP-B Current Condition Start: 09/06/23 11:34 Freq: Status: Active Protocol: Document 09/27/23 14:20 AM (Rec: 09/27/23 16:39 AM [id number]) Current Condition History of Current Condition Onset Date 07/22/23 Current Complaints R Lower leg pain from recent fracture History of Current Condition Pt fractured R tib-fib on . Pt had surgical repair on 07/23/23. Pt was TDWB, though now WBAT. Pt slipped on a step and fell. Pt had previous issue of R knee giving out on her. Pt reports that she had a fall 2 months prior. Prior Treatments and Tests Intramedullary nail PT-OP-C Subjective Start: 09/06/23 11:34 Freq: Status: Active Protocol: Document 01/06/24 10:30 DCW (Rec: 01/06/24 11:13 DCW [id number]) OP-PT Subjective Patient Comments Patient Comments Pt notes she twisted her leg last Saturday, so she's been a little more sore, but is feeling a bit better now. PT-OP-D Balance Start: 09/06/23 11:34 Freq: Status: Active Protocol: Document 11/26/23 10:30 DCW (Rec: 11/26/23 11:00 DCW [id number]) OP-PT Balance Assessment Sitting Balance Static Sitting Balance Ability Normal Dynamic Sitting Balance Ability Normal Standing Balance Static Standing Balance Ability Good Dynamic Standing Balance Ability Fair Device Used SPC, none Vargas Fall Scale Copyright Permission PT-OP-E Functional Tests Start: 09/06/23 11:34 Freq: Status: Active Protocol: Document 11/26/23 10:30 DCW (Rec: 11/26/23 11:03 DCW [id number]) Functional Tests 2 Minute Walk Test Distance 324' Device Used None Comments 2.7 ft/sec Dynamic Gait Index (DGI) Score DGI Impairment Rating 20 to <40% Impaired (Score 15- 19) PT-OP-F Manual Assessment Start: 09/06/23 11:34 Freq: Status: Active Protocol: Document 11/26/23 10:30 DCW (Rec: 11/26/23 11:03 DCW [id number]) Manual Assessments Soft Tissue Assessment Soft Tissue Mobility Assessment Surgical incisions healed. No edema. PT-OP-G Mobility & Gait Start: 09/06/23 11:34 Freq: Status: Active Protocol: Document 11/26/23 10:30 DCW (Rec: 11/26/23 11:00 DCW [id number]) OP Gait Assessment Gait Gait Assistance Required: Independent Distance (Feet) 324 Able to Maintain Weight Bearing Status Yes During Gait Assistive Devices Assistive Device None Gait Deviations General Gait Pattern Antalgic,Decreased Stride Length,Decreased Feet Clearance,Flexed Trunk Factors Limiting Gait Function Factors Limiting Gait Function Decreased Activity Tolerance, Decreased Strength,Limited Range of Motion,Pain Comments Gait Comments Difficulty achieving R knee extension Stair Climbing Evaluation Evaluation Level of Assist On Stairs Independent Devices Stair Climbing Assistive Devices Left Railing,Right Railing Technique/Endurance Stair Climbing Direction Ascend and Descend Stair Climbing Technique Step Over Step Number of Steps Climbed 4 Stair Climbing Set # Repetitions (reps) 2 PT-OP-K Range of Motion Start: 09/06/23 11:34 Freq: Status: Active Protocol: Document 11/26/23 10:30 DCW (Rec: 11/26/23 11:00 DCW [id number]) Knee Goniometric Range of Motion Knee Right Patient Position Supine Flexion Active (degrees) 130 Extension Active (degrees) 1 Ankle and Foot Goniometric Range of Motion Ankle and Foot Right Active Testing Position Supine Dorsiflexion with Knee Flexed 10 Dorsiflexion with Knee Extended 8 Plantarflexion 42 Inversion 48 Eversion 11 PT-OP-M Strength Start: 09/06/23 11:34 Freq: Status: Active Protocol: Document 11/26/23 10:30 DCW (Rec: 11/26/23 11:00 DCW [id number]) Knee Strength Knee Manual Muscle Testing Right Flexion (S2) 4 Good Extension (L3) 4+ Good+ Ankle/Foot Strength Ankle and Foot Manual Muscle Testing Right Dorsiflexion (L4) 4+ Good+ Plantarflexion (S1) 3- Fair- Inversion 4 Good Eversion (S1) 4 Good PT-OP-Q Treatments Start: 09/06/23 11:34 Freq: Status: Active Protocol: Document 01/06/24 10:30 DCW (Rec: 01/06/24 11:13 DCW [id number]) Cardio Equipment Recumbent Bicycle Duration (Minutes) 6 Resistance 4 Seat Position 2+Lrg Backrest Gym Equipment Shuttle Recovery Bilateral Heel Raises Resistance 25# (one new) Shuttle Recovery Platform Stable Reps/Time x20 Unilateral squat Resistance 25# (one new) Shuttle Recovery Platform Stable Reps/Time x20 Bilateral squat Resistance 50# (two new) Shuttle Recovery Platform Unstable Shuttle Balance Red Details WBOS, Staggered Therapeutic Exercises Other Exercises BOSU Lunge Other Exercise Name BOSU Lunge Equipment Used Blue BOSU Gait Training Gait Activity ambulation Description AD-free Distance/Duration 510' Comments Distraction - ABCs backwards PT-OP-T Assessment and Plan Start: 09/06/23 11:34 Freq: Status: Active Protocol: Document 01/06/24 10:30 DCW (Rec: 01/06/24 11:13 DCW [id number]) Physical Therapy Assessment Impairments Impairments Activity Tolerance,Balance, Coordination,Edema,Functional Activities,Functional Mobility ,Gait,Pain,Posture,ROM,Soft Tissue Mobility,Strength Goals Walking Impairment Pt able to walk 5-6 min before need to sit at IE. Short Term Goal (STG) Pt able to ambulate 15 min before need to sit. STG Duration Met Correction Goal (LTG) Pt able to ambulate 30 min before need to sit. LTG Duration 01/25/24 ROM Impairment Pt with limitations at R knee and ankle ROM. Polysomnographer Goal (LTG) Pt with R knee and ankle ROM that is WFL. LTG Duration 01/25/24 - Improving Gait Impairment Pt ambulating with 4WW. Short Term Goal (STG) Pt able to ambulate safely with SPC. STG Duration Met Correction Goal (LTG) Pt able to ambulate safely without AD. LTG Duration 01/25/24 - Improving LEFS Impairment Pt with score of 12/80 on LEFS at IE Short Term Goal (STG) Pt with score of 35/80 10/07/23: Pt with gradual progression with score of 19/ 80. STG Duration 12/27/23 Polysomnographer Goal (LTG) Pt with score of 45/80 on LEFS LTG Duration 01/25/24 - Improving Strength Impairment Pt with 3/5 to 3+/5 R LE strength grossly. Short Term Goal (STG) Pt with 4-/5 to 4/5 R LE strength grossly. : Pt with improved strength compared to IE, progressing towards goal STG Duration 12/27/23 Polysomnographer Goal (LTG) Pt with 4+/5 to 5/5 R LE strength grossly. LTG Duration 01/25/24 - Improving Pain Impairment Pt with 9/10 at worst at IE. Short Term Goal (STG) Pt to report pain at 6/10 at the worst. STG Duration Met Correction Goal (LTG) Pt to report that pain is <1/ 10 at the worst. LTG Duration 01/25/24 - Improving Assessment Summary Assessment Good response to new activities, including both balance challenges and gait training /s AD. Recommended pt decrease reliance on 3WW. Continue to focus on strength, stability, and ROM. Physical Therapy Plan Frequency and Duration Frequency of Treatment 2x/Week Plan of Care Start Date 11/26/23 Plan of Care End Date 01/25/24 Therapeutic Interventions Therapeutic Interventions Balance Training,Coordination Training,Gait Training,Home Exercise Program,Joint Mobilizations,Manual Therapy, Neuromuscular Re-education, Patient/Caregiver Education, Self-Care/Home Management,Soft Tissue Mobilization,Taping, Therapeutic Activities, Therapeutic Exercises Modalities Cold Pack/Ice Massage,Electric Stimulation,Hot Packs, Ultrasound Next Visit Focus/Plan Next Note Type Treatment Note Next Visit Plan recheck eccentric heel raises strengthening. POC: progress R LE strength and mobility, progress HEP
--- NOTE | 2024-01-08 11:16 | PT.OTN ---
Current Diagnoses Displaced spiral fracture of shaft of right tibia, subsequent encounter for closed fracture with routine healing (01/08/24) Physical Therapy Treatment Note PT-OP-A Visit Information Start: 09/06/23 11:34 Freq: Status: Active Protocol: Document 01/08/24 10:30 DCW (Rec: 01/08/24 11:16 DCW [id number]) Out-Patient Physical Therapy Visit Information Visit Information Visit Type Treatment Note Visit Note 05/27 post PN Visit Start Time 10:30 Visit Stop Time 11:15 Visit Number 21 Number of PRIMARY SPECIAL EDUCATION TEACHER Visits 0 Evaluation Information Evaluation Date 09/06/23 PT-OP-B Current Condition Start: 09/06/23 11:34 Freq: Status: Active Protocol: Document 09/27/23 14:20 AM (Rec: 09/27/23 16:39 AM [id number]) Current Condition History of Current Condition Onset Date 07/22/23 Current Complaints R Lower leg pain from recent fracture History of Current Condition Pt fractured R tib-fib on . Pt had surgical repair on 07/23/23. Pt was TDWB, though now WBAT. Pt slipped on a step and fell. Pt had previous issue of R knee giving out on her. Pt reports that she had a fall 2 months prior. Prior Treatments and Tests Intramedullary nail PT-OP-C Subjective Start: 09/06/23 11:34 Freq: Status: Active Protocol: Document 01/08/24 10:30 DCW (Rec: 01/08/24 11:16 DCW [id number]) OP-PT Subjective Patient Comments Patient Comments Has been spending less time using her 3WW. Notes she was sitting cross-legged last night, she feels like something shifted over in her knee, and it has been more sore since then. PT-OP-D Balance Start: 09/06/23 11:34 Freq: Status: Active Protocol: Document 11/26/23 10:30 DCW (Rec: 11/26/23 11:00 DCW [id number]) OP-PT Balance Assessment Sitting Balance Static Sitting Balance Ability Normal Dynamic Sitting Balance Ability Normal Standing Balance Static Standing Balance Ability Good Dynamic Standing Balance Ability Fair Device Used SPC, none Vargas Fall Scale Copyright Permission PT-OP-E Functional Tests Start: 09/06/23 11:34 Freq: Status: Active Protocol: Document 11/26/23 10:30 DCW (Rec: 11/26/23 11:03 DCW [id number]) Functional Tests 2 Minute Walk Test Distance 324' Device Used None Comments 2.7 ft/sec Dynamic Gait Index (DGI) Score DGI Impairment Rating 20 to <40% Impaired (Score 15- 19) PT-OP-F Manual Assessment Start: 09/06/23 11:34 Freq: Status: Active Protocol: Document 11/26/23 10:30 DCW (Rec: 11/26/23 11:03 DCW [id number]) Manual Assessments Soft Tissue Assessment Soft Tissue Mobility Assessment Surgical incisions healed. No edema. PT-OP-G Mobility & Gait Start: 09/06/23 11:34 Freq: Status: Active Protocol: Document 11/26/23 10:30 DCW (Rec: 11/26/23 11:00 DCW [id number]) OP Gait Assessment Gait Gait Assistance Required: Independent Distance (Feet) 324 Able to Maintain Weight Bearing Status Yes During Gait Assistive Devices Assistive Device None Gait Deviations General Gait Pattern Antalgic,Decreased Stride Length,Decreased Feet Clearance,Flexed Trunk Factors Limiting Gait Function Factors Limiting Gait Function Decreased Activity Tolerance, Decreased Strength,Limited Range of Motion,Pain Comments Gait Comments Difficulty achieving R knee extension Stair Climbing Evaluation Evaluation Level of Assist On Stairs Independent Devices Stair Climbing Assistive Devices Left Railing,Right Railing Technique/Endurance Stair Climbing Direction Ascend and Descend Stair Climbing Technique Step Over Step Number of Steps Climbed 4 Stair Climbing Set # Repetitions (reps) 2 PT-OP-K Range of Motion Start: 09/06/23 11:34 Freq: Status: Active Protocol: Document 11/26/23 10:30 DCW (Rec: 11/26/23 11:00 DCW [id number]) Knee Goniometric Range of Motion Knee Right Patient Position Supine Flexion Active (degrees) 130 Extension Active (degrees) 1 Ankle and Foot Goniometric Range of Motion Ankle and Foot Right Active Testing Position Supine Dorsiflexion with Knee Flexed 10 Dorsiflexion with Knee Extended 8 Plantarflexion 42 Inversion 48 Eversion 11 PT-OP-M Strength Start: 09/06/23 11:34 Freq: Status: Active Protocol: Document 11/26/23 10:30 DCW (Rec: 11/26/23 11:00 DCW [id number]) Knee Strength Knee Manual Muscle Testing Right Flexion (S2) 4 Good Extension (L3) 4+ Good+ Ankle/Foot Strength Ankle and Foot Manual Muscle Testing Right Dorsiflexion (L4) 4+ Good+ Plantarflexion (S1) 3- Fair- Inversion 4 Good Eversion (S1) 4 Good PT-OP-Q Treatments Start: 09/06/23 11:34 Freq: Status: Active Protocol: Document 01/08/24 10:30 DCW (Rec: 01/08/24 11:16 DCW [id number]) Cardio Equipment Recumbent Bicycle Duration (Minutes) 6 Resistance 4 Seat Position 2+Lrg Backrest Gym Equipment Shuttle Recovery Bilateral Heel Raises Resistance 37# (one new) Shuttle Recovery Platform Stable Reps/Time x20 Unilateral squat Resistance 37# (one new) Shuttle Recovery Platform Stable Reps/Time x20 Bilateral squat Resistance 50# (two new) Shuttle Recovery Platform Stable Shuttle Balance Red Details WBOS, Staggered Manual Therapy Treatment Soft Tissue Mobilization R LE Body Location STM at gastroc, ant tib Mobilization Type Myofascial Release,Sustained Pressure,Trigger Point Release Intensity/Depth Moderate Body Position Sitting Joint Mobilizations Right Knee Joint R knee Direction P<->A Grade III Body Position Sitting PT-OP-T Assessment and Plan Start: 09/06/23 11:34 Freq: Status: Active Protocol: Document 01/08/24 10:30 DCW (Rec: 01/08/24 11:16 DCW [id number]) Physical Therapy Assessment Impairments Impairments Activity Tolerance,Balance, Coordination,Edema,Functional Activities,Functional Mobility ,Gait,Pain,Posture,ROM,Soft Tissue Mobility,Strength Goals Walking Impairment Pt able to walk 5-6 min before need to sit at IE. Short Term Goal (STG) Pt able to ambulate 15 min before need to sit. STG Duration Met [facility]ci Goal (LTG) Pt able to ambulate 30 min before need to sit. LTG Duration 01/25/24 ROM Impairment Pt with limitations at R knee and ankle ROM. Fci Goal (LTG) Pt with R knee and ankle ROM that is WFL. LTG Duration 01/25/24 - Improving Gait Impairment Pt ambulating with 4WW. Short Term Goal (STG) Pt able to ambulate safely with SPC. STG Duration Met Fci Goal (LTG) Pt able to ambulate safely without AD. LTG Duration 01/25/24 - Improving LEFS Impairment Pt with score of 12/80 on LEFS at IE Short Term Goal (STG) Pt with score of 35/80 10/07/23: Pt with gradual progression with score of 19/ 80. STG Duration 12/27/23 Fci Goal (LTG) Pt with score of 45/80 on LEFS LTG Duration 01/25/24 - Improving Strength Impairment Pt with 3/5 to 3+/5 R LE strength grossly. Short Term Goal (STG) Pt with 4-/5 to 4/5 R LE strength grossly. : Pt with improved strength compared to IE, progressing towards goal STG Duration 12/27/23 Fci Goal (LTG) Pt with 4+/5 to 5/5 R LE strength grossly. LTG Duration 01/25/24 - Improving Pain Impairment Pt with 9/10 at worst at IE. Short Term Goal (STG) Pt to report pain at 6/10 at the worst. STG Duration Met Senior Embedded Software Engineer Goal (LTG) Pt to report that pain is <1/ 10 at the worst. LTG Duration 01/25/24 - Improving Assessment Summary Assessment Pt doing well with decreased use of walker, minimal antalgia . Good response to balance challenges and manual. Physical Therapy Plan Frequency and Duration Frequency of Treatment 2x/Week Plan of Care Start Date 11/26/23 Plan of Care End Date 01/25/24 Therapeutic Interventions Therapeutic Interventions Balance Training,Coordination Training,Gait Training,Home Exercise Program,Joint Mobilizations,Manual Therapy, Neuromuscular Re-education, Patient/Caregiver Education, Self-Care/Home Management,Soft Tissue Mobilization,Taping, Therapeutic Activities, Therapeutic Exercises Modalities Cold Pack/Ice Massage,Electric Stimulation,Hot Packs, Ultrasound Next Visit Focus/Plan Next Note Type Treatment Note Next Visit Plan recheck eccentric heel raises strengthening. POC: progress R LE strength and mobility, progress HEP
--- NOTE | 2024-01-13 11:18 | PT.OTN ---
Current Diagnoses Displaced spiral fracture of shaft of right tibia, subsequent encounter for closed fracture with routine healing (01/13/24) Physical Therapy Treatment Note PT-OP-A Visit Information Start: 09/06/23 11:34 Freq: Status: Active Protocol: Document 01/13/24 10:30 DCW (Rec: 01/13/24 11:18 DCW [id number]) Out-Patient Physical Therapy Visit Information Visit Information Visit Type Treatment Note Visit Note 06/27 post PN Visit Start Time 10:30 Visit Stop Time 11:15 Visit Number 21 Number of COMPENSATION DIRECTOR Visits 0 Evaluation Information Evaluation Date 09/06/23 PT-OP-B Current Condition Start: 09/06/23 11:34 Freq: Status: Active Protocol: Document 09/27/23 14:20 AM (Rec: 09/27/23 16:39 AM [id number]) Current Condition History of Current Condition Onset Date 07/22/23 Current Complaints R Lower leg pain from recent fracture History of Current Condition Pt fractured R tib-fib on . Pt had surgical repair on 07/23/23. Pt was TDWB, though now WBAT. Pt slipped on a step and fell. Pt had previous issue of R knee giving out on her. Pt reports that she had a fall 2 months prior. Prior Treatments and Tests Intramedullary nail PT-OP-C Subjective Start: 09/06/23 11:34 Freq: Status: Active Protocol: Document 01/13/24 10:30 DCW (Rec: 01/13/24 11:18 DCW [id number]) OP-PT Subjective Patient Comments Patient Comments I just tend to over do it with being up and walking. Pt brings in a cane today due to increased pain and feeling unstable today. PT-OP-D Balance Start: 09/06/23 11:34 Freq: Status: Active Protocol: Document 11/26/23 10:30 DCW (Rec: 11/26/23 11:00 DCW [id number]) OP-PT Balance Assessment Sitting Balance Static Sitting Balance Ability Normal Dynamic Sitting Balance Ability Normal Standing Balance Static Standing Balance Ability Good Dynamic Standing Balance Ability Fair Device Used SPC, none Vargas Fall Scale Copyright Permission PT-OP-E Functional Tests Start: 09/06/23 11:34 Freq: Status: Active Protocol: Document 11/26/23 10:30 DCW (Rec: 11/26/23 11:03 DCW [id number]) Functional Tests 2 Minute Walk Test Distance 324' Device Used None Comments 2.7 ft/sec Dynamic Gait Index (DGI) Score DGI Impairment Rating 20 to <40% Impaired (Score 15- 19) PT-OP-F Manual Assessment Start: 09/06/23 11:34 Freq: Status: Active Protocol: Document 11/26/23 10:30 DCW (Rec: 11/26/23 11:03 DCW [id number]) Manual Assessments Soft Tissue Assessment Soft Tissue Mobility Assessment Surgical incisions healed. No edema. PT-OP-G Mobility & Gait Start: 09/06/23 11:34 Freq: Status: Active Protocol: Document 11/26/23 10:30 DCW (Rec: 11/26/23 11:00 DCW [id number]) OP Gait Assessment Gait Gait Assistance Required: Independent Distance (Feet) 324 Able to Maintain Weight Bearing Status Yes During Gait Assistive Devices Assistive Device None Gait Deviations General Gait Pattern Antalgic,Decreased Stride Length,Decreased Feet Clearance,Flexed Trunk Factors Limiting Gait Function Factors Limiting Gait Function Decreased Activity Tolerance, Decreased Strength,Limited Range of Motion,Pain Comments Gait Comments Difficulty achieving R knee extension Stair Climbing Evaluation Evaluation Level of Assist On Stairs Independent Devices Stair Climbing Assistive Devices Left Railing,Right Railing Technique/Endurance Stair Climbing Direction Ascend and Descend Stair Climbing Technique Step Over Step Number of Steps Climbed 4 Stair Climbing Set # Repetitions (reps) 2 PT-OP-K Range of Motion Start: 09/06/23 11:34 Freq: Status: Active Protocol: Document 11/26/23 10:30 DCW (Rec: 11/26/23 11:00 DCW [id number]) Knee Goniometric Range of Motion Knee Right Patient Position Supine Flexion Active (degrees) 130 Extension Active (degrees) 1 Ankle and Foot Goniometric Range of Motion Ankle and Foot Right Active Testing Position Supine Dorsiflexion with Knee Flexed 10 Dorsiflexion with Knee Extended 8 Plantarflexion 42 Inversion 48 Eversion 11 PT-OP-M Strength Start: 09/06/23 11:34 Freq: Status: Active Protocol: Document 11/26/23 10:30 DCW (Rec: 11/26/23 11:00 DCW [id number]) Knee Strength Knee Manual Muscle Testing Right Flexion (S2) 4 Good Extension (L3) 4+ Good+ Ankle/Foot Strength Ankle and Foot Manual Muscle Testing Right Dorsiflexion (L4) 4+ Good+ Plantarflexion (S1) 3- Fair- Inversion 4 Good Eversion (S1) 4 Good PT-OP-Q Treatments Start: 09/06/23 11:34 Freq: Status: Active Protocol: Document 01/13/24 10:30 DCW (Rec: 01/13/24 11:18 DCW [id number]) Cardio Equipment Recumbent Bicycle Duration (Minutes) 6 Resistance 4 Seat Position 2+Lrg Backrest Gym Equipment Shuttle Recovery Bilateral Heel Raises Resistance 37# (one new) Shuttle Recovery Platform Stable Reps/Time x20 Unilateral squat Resistance 37# (one new) Shuttle Recovery Platform Stable Reps/Time x20 Bilateral squat Resistance 50# (two new) Shuttle Recovery Platform Stable Shuttle Balance Red Details WBOS, Staggered Therapeutic Exercises Other Exercises BOSU Lunge Other Exercise Name BOSU Lunge Equipment Used Blue BOSU Manual Therapy Treatment Soft Tissue Mobilization R LE Body Location STM at gastroc, ant tib Mobilization Type Myofascial Release,Sustained Pressure,Trigger Point Release Intensity/Depth Moderate Body Position Sitting Joint Mobilizations Right Knee Joint R knee Direction P<->A Grade III Body Position Sitting PT-OP-T Assessment and Plan Start: 09/06/23 11:34 Freq: Status: Active Protocol: Document 01/13/24 10:30 DCW (Rec: 01/13/24 11:18 DCW [id number]) Physical Therapy Assessment Impairments Impairments Activity Tolerance,Balance, Coordination,Edema,Functional Activities,Functional Mobility ,Gait,Pain,Posture,ROM,Soft Tissue Mobility,Strength Goals Walking Impairment Pt able to walk 5-6 min before need to sit at IE. Short Term Goal (STG) Pt able to ambulate 15 min before need to sit. STG Duration Met Longterm Goal (LTG) Pt able to ambulate 30 min before need to sit. LTG Duration 01/25/24 ROM Impairment Pt with limitations at R knee and ankle ROM. Longterm Goal (LTG) Pt with R knee and ankle ROM that is WFL. LTG Duration 01/25/24 - Improving Gait Impairment Pt ambulating with 4WW. Short Term Goal (STG) Pt able to ambulate safely with SPC. STG Duration Met Engagement Director Goal (LTG) Pt able to ambulate safely without AD. LTG Duration 01/25/24 - Improving LEFS Impairment Pt with score of 12/80 on LEFS at IE Short Term Goal (STG) Pt with score of 35/80 10/07/23: Pt with gradual progression with score of 19/ 80. STG Duration 12/27/23 Longterm Goal (LTG) Pt with score of 45/80 on LEFS LTG Duration 01/25/24 - Improving Strength Impairment Pt with 3/5 to 3+/5 R LE strength grossly. Short Term Goal (STG) Pt with 4-/5 to 4/5 R LE strength grossly. : Pt with improved strength compared to IE, progressing towards goal STG Duration 12/27/23 Engagement Director Goal (LTG) Pt with 4+/5 to 5/5 R LE strength grossly. LTG Duration 01/25/24 - Improving Pain Impairment Pt with 9/10 at worst at IE. Short Term Goal (STG) Pt to report pain at 6/10 at the worst. STG Duration Met Longterm Goal (LTG) Pt to report that pain is <1/ 10 at the worst. LTG Duration 01/25/24 - Improving Assessment Summary Assessment Was using a SPC to begin with today, but quickly began moving around without it with no lingering difficulty. Continues to display slight antalgia, but improving with mobility, ROM, stabilization, and functional movement. Physical Therapy Plan Frequency and Duration Frequency of Treatment 2x/Week Plan of Care Start Date 11/26/23 Plan of Care End Date 01/25/24 Therapeutic Interventions Therapeutic Interventions Balance Training,Coordination Training,Gait Training,Home Exercise Program,Joint Mobilizations,Manual Therapy, Neuromuscular Re-education, Patient/Caregiver Education, Self-Care/Home Management,Soft Tissue Mobilization,Taping, Therapeutic Activities, Therapeutic Exercises Modalities Cold Pack/Ice Massage,Electric Stimulation,Hot Packs, Ultrasound Next Visit Focus/Plan Next Note Type Treatment Note Next Visit Plan recheck eccentric heel raises strengthening. POC: progress R LE strength and mobility, progress HEP
--- NOTE | 2024-01-15 11:18 | PT.OTN ---
Current Diagnoses Displaced spiral fracture of shaft of right tibia, subsequent encounter for closed fracture with routine healing (01/15/24) Physical Therapy Treatment Note PT-OP-A Visit Information Start: 09/06/23 11:34 Freq: Status: Active Protocol: Document 01/15/24 10:28 SP (Rec: 01/15/24 11:55 SP [id number]) Out-Patient Physical Therapy Visit Information Visit Information Visit Type Treatment Note Visit Note 07/28 post PN Visit Start Time 10:28 Visit Stop Time 11:18 Visit Number 22 Number of TRUCK ENGINE TECHNICIAN Visits 1 Evaluation Information Evaluation Date 09/06/23 PT-OP-B Current Condition Start: 09/06/23 11:34 Freq: Status: Active Protocol: Document 09/27/23 14:20 AM (Rec: 09/27/23 16:39 AM [id number]) Current Condition History of Current Condition Onset Date 07/22/23 Current Complaints R Lower leg pain from recent fracture History of Current Condition Pt fractured R tib-fib on . Pt had surgical repair on 07/23/23. Pt was TDWB, though now WBAT. Pt slipped on a step and fell. Pt had previous issue of R knee giving out on her. Pt reports that she had a fall 2 months prior. Prior Treatments and Tests Intramedullary nail PT-OP-C Subjective Start: 09/06/23 11:34 Freq: Status: Active Protocol: Document 01/15/24 10:28 SP (Rec: 01/15/24 11:55 SP [id number]) OP-PT Subjective Patient Comments Patient Comments Pt reported over vacation R was hurting and supported flexion seated and gave way enough that now can bend further into flexion. Pain in mainly lower lateral trent as day goes on without use of AD around home then notices walks stiff legged out to side. She said wants to go out on sand for picking up rocks more than seaglass. PT-OP-D Balance Start: 09/06/23 11:34 Freq: Status: Active Protocol: Document 11/26/23 10:30 DCW (Rec: 11/26/23 11:00 DCW [id number]) OP-PT Balance Assessment Sitting Balance Static Sitting Balance Ability Normal Dynamic Sitting Balance Ability Normal Standing Balance Static Standing Balance Ability Good Dynamic Standing Balance Ability Fair Device Used SPC, none Vargas Fall Scale Copyright Permission PT-OP-E Functional Tests Start: 09/06/23 11:34 Freq: Status: Active Protocol: Document 11/26/23 10:30 DCW (Rec: 11/26/23 11:03 DCW [id number]) Functional Tests 2 Minute Walk Test Distance 324' Device Used None Comments 2.7 ft/sec Dynamic Gait Index (DGI) Score DGI Impairment Rating 20 to <40% Impaired (Score 15- 19) PT-OP-F Manual Assessment Start: 09/06/23 11:34 Freq: Status: Active Protocol: Document 11/26/23 10:30 DCW (Rec: 11/26/23 11:03 DCW [id number]) Manual Assessments Soft Tissue Assessment Soft Tissue Mobility Assessment Surgical incisions healed. No edema. PT-OP-G Mobility & Gait Start: 09/06/23 11:34 Freq: Status: Active Protocol: Document 11/26/23 10:30 DCW (Rec: 11/26/23 11:00 DCW [id number]) OP Gait Assessment Gait Gait Assistance Required: Independent Distance (Feet) 324 Able to Maintain Weight Bearing Status Yes During Gait Assistive Devices Assistive Device None Gait Deviations General Gait Pattern Antalgic,Decreased Stride Length,Decreased Feet Clearance,Flexed Trunk Factors Limiting Gait Function Factors Limiting Gait Function Decreased Activity Tolerance, Decreased Strength,Limited Range of Motion,Pain Comments Gait Comments Difficulty achieving R knee extension Stair Climbing Evaluation Evaluation Level of Assist On Stairs Independent Devices Stair Climbing Assistive Devices Left Railing,Right Railing Technique/Endurance Stair Climbing Direction Ascend and Descend Stair Climbing Technique Step Over Step Number of Steps Climbed 4 Stair Climbing Set # Repetitions (reps) 2 PT-OP-K Range of Motion Start: 09/06/23 11:34 Freq: Status: Active Protocol: Document 01/15/24 10:28 SP (Rec: 01/15/24 11:55 SP [id number]) Knee Goniometric Range of Motion Knee Right Knee ROM WFL Yes Patient Position Supine Flexion Active (degrees) 144 Flexion Passive (degrees) 150 Extension Active (degrees) 0 Comments R knee ROM AROM: supine 144 deg, PROM 150 deg PROM: prone AAROM /c strap 135 deg PT-OP-M Strength Start: 09/06/23 11:34 Freq: Status: Active Protocol: Document 11/26/23 10:30 DCW (Rec: 11/26/23 11:00 DCW [id number]) Knee Strength Knee Manual Muscle Testing Right Flexion (S2) 4 Good Extension (L3) 4+ Good+ Ankle/Foot Strength Ankle and Foot Manual Muscle Testing Right Dorsiflexion (L4) 4+ Good+ Plantarflexion (S1) 3- Fair- Inversion 4 Good Eversion (S1) 4 Good PT-OP-Q Treatments Start: 09/06/23 11:34 Freq: Status: Active Protocol: Document 01/15/24 10:28 SP (Rec: 01/15/24 11:55 SP [id number]) Gym Equipment Shuttle Recovery Bilateral Heel Raises Resistance 37# (one new) Shuttle Recovery Platform Stable Reps/Time x20 Unilateral squat Resistance 37# (one new) Shuttle Recovery Platform Stable Reps/Time x20 each LE Bilateral squat Resistance 50# (two new) Shuttle Recovery Platform Stable,Unstable Reps/Time x20 stable, x12 uneven Therapeutic Exercises Prone Exercises quad stretch Prone Exercise Name quad stretch Side right Resistance AAROM R knee Equipment Used use strap better vs grasping shoe heel Reps/Minutes 15 SH x4 Comments good feedback mid quad stretch , no R knee pain. Standing Exercises knee/ankle mobility Standing Exercise Name reviewed self needed R knee ROM mobility Equipment Used on 2nd step, contact rail Reps/Minutes 5 reps x2- painfree reported Comments good feedback knee ROM flexion almost full ROM, ankle movement noted Step-ups Standing Exercise Name Step-ups single repeated Side bilateral Equipment Used 4 step, rail PRN Reps/Minutes x10 reps each LE Comments cued TKE and glut drive stability, improved stability no UE light contact Gait Training Gait Activity ambulation Description AD-free Device Used mirror for self feedback Distance/Duration 20 ft Treatment Focus normalizing gait: midline, R TKE/ glut drive stance time Comments improved decreased to no trunk sway during RLE WB, cud normal width ROCIO tall posture /c scap&core fac midline, still little lacking toe off calf strengthening end gait phase. Manual Therapy Treatment Joint Mobilizations Right Knee Joint R knee Direction P<->A Grade III Body Position Hooklying Comments painfree, into FROM Neuro Re-Education Treatment Balance Activities uneven surface Details incline/decline, 3 hurdles: Fwd & Lateral Surface 6 step/wedges/blue mat Reps/Duration 4 laps fwd, 2 laps lateral Comments cued rhomboid & core fac & TKE on RLE improved stance time and stability PT-OP-T Assessment and Plan Start: 09/06/23 11:34 Freq: Status: Active Protocol: Document 01/15/24 10:28 SP (Rec: 01/15/24 11:55 SP [id number]) Physical Therapy Assessment Goals Walking Impairment Pt able to walk 5-6 min before need to sit at IE. Short Term Goal (STG) Pt able to ambulate 15 min before need to sit. STG Duration Met Customer Care Associate Goal (LTG) Pt able to ambulate 30 min before need to sit. LTG Duration 01/25/24 ROM Impairment Pt with limitations at R knee and ankle ROM. Customer Care Associate Goal (LTG) Pt with R knee and ankle ROM that is WFL. 01/15/24: GOAL MET: R knee AROM 0-144 deg. LTG Duration 01/25/24 -GOAL MET Gait Impairment Pt ambulating with 4WW. Short Term Goal (STG) Pt able to ambulate safely with SPC. STG Duration Met Customer Care Associate Goal (LTG) Pt able to ambulate safely without AD. 01/15/24: progressing is not using AD short distance in home but bring SPC for balance stability in community. LTG Duration 01/25/24 - progressing 01/15/24 LEFS Impairment Pt with score of 12/80 on LEFS at IE Short Term Goal (STG) Pt with score of 35/80 10/07/23: Pt with gradual progression with score of 19/ 80. STG Duration 12/27/23 Skilled Nursing Goal (LTG) Pt with score of 45/80 on LEFS LTG Duration 01/25/24 - Improving Strength Impairment Pt with 3/5 to 3+/5 R LE strength grossly. Short Term Goal (STG) Pt with 4-/5 to 4/5 R LE strength grossly. : Pt with improved strength compared to IE, progressing towards goal STG Duration 12/27/23 Customer Care Associate Goal (LTG) Pt with 4+/5 to 5/5 R LE strength grossly. LTG Duration 01/25/24 - Improving Pain Impairment Pt with 9/10 at worst at IE. Short Term Goal (STG) Pt to report pain at 6/10 at the worst. STG Duration Met Skilled Nursing Goal (LTG) Pt to report that pain is <1/ 10 at the worst. 01/15/24: progressing: still has pain in trent and ankle when walking without AD couple hrs 7/10 and pain medications doesn't eleviate it, eg carrying laundry basket. LTG Duration 01/25/24 - progressing 01/15/24 Progress Towards Goals Progress Towards Goals Progressing Toward Goals Progress Comments MET LTG ROM: R knee ROM AROM: supine 144 deg, PROM 150 deg PROM: prone AAROM /c strap 135 deg Assessment Summary Assessment Pt tends to lean into SPC on R vs L and not patterning well. Improved with education in LUE light contact advancement touch floor but progresses well with therapy doesn't need use for stability level or uneven surface. Demonstrates trunk sway initially improves post cuing, use mirror self feedback postural corrections and progressed repeated step ups and incline/decline SPC> light contact at eblow to no UE support close SBA, 1 LOB over trunk sway Min A recovery during omer step R stance LE. Good form and stability last lap post cuing for tall/ core/scap engagement midline and hip flexion foot clearance and soft foot strike advancement normal width ROCIO. Pt would benefit from R calf, glut and hip abd strengthening for stance time balance and gait progression for confidence uneven surface community walking with diminished AD use. Physical Therapy Plan Frequency and Duration Frequency of Treatment 2x/Week Plan of Care Start Date 11/26/23 Plan of Care End Date 01/25/24 Therapeutic Interventions Therapeutic Interventions Balance Training,Coordination Training,Gait Training,Home Exercise Program,Joint Mobilizations,Manual Therapy, Neuromuscular Re-education, Patient/Caregiver Education, Self-Care/Home Management,Soft Tissue Mobilization,Taping, Therapeutic Activities, Therapeutic Exercises Modalities Cold Pack/Ice Massage,Electric Stimulation,Hot Packs, Ultrasound Next Visit Focus/Plan Next Note Type Progress Note Next Visit Plan Updated POC next tx. Future tx: R hip abd, glut, calf strengthening and balance training safety /c AD progression. POC: progress R LE strength and mobility, progress HEP
--- NOTE | 2024-01-27 11:10 | PT.OPPN ---
Current Diagnoses Displaced spiral fracture of shaft of right tibia, subsequent encounter for closed fracture with routine healing (01/27/24) Physical Therapy Progress Note PT-OP-A Visit Information Start: 09/06/23 11:34 Freq: Status: Active Protocol: Document 01/27/24 10:30 DCW (Rec: 01/27/24 11:10 DCW [id number]) Out-Patient Physical Therapy Visit Information Visit Information Visit Type Progress Note Visit Start Time 10:30 Visit Stop Time 11:15 Visit Number 23 Number of CAREER SERVICES COORDINATOR Visits 0 Evaluation Information Evaluation Date 09/06/23 PT-OP-B Current Condition Start: 09/06/23 11:34 Freq: Status: Active Protocol: Document 09/27/23 14:20 AM (Rec: 09/27/23 16:39 AM [id number]) Current Condition History of Current Condition Onset Date 07/22/23 Current Complaints R Lower leg pain from recent fracture History of Current Condition Pt fractured R tib-fib on . Pt had surgical repair on 07/23/23. Pt was TDWB, though now WBAT. Pt slipped on a step and fell. Pt had previous issue of R knee giving out on her. Pt reports that she had a fall 2 months prior. Prior Treatments and Tests Intramedullary nail PT-OP-C Subjective Start: 09/06/23 11:34 Freq: Status: Active Protocol: Document 01/27/24 10:30 DCW (Rec: 01/27/24 11:10 DCW [id number]) OP-PT Subjective Patient Comments Patient Comments Pt feeling more comfortable walking without an assistive device PT-OP-D Balance Start: 09/06/23 11:34 Freq: Status: Active Protocol: Document 01/27/24 10:30 DCW (Rec: 01/27/24 11:05 DCW [id number]) OP-PT Balance Assessment Standing Balance Static Standing Balance Ability Good Dynamic Standing Balance Ability Good Device Used None Vargas Fall Scale Copyright Permission Alicia STRANGE, Alicia RM, Stella SJ. Development of a scale to identify the fall- prone patient. Can J Aging 1989;8;366-7. Marie Vargas (2009). Preventing patient falls. (2nd ed). [place]: More. PT-OP-E Functional Tests Start: 09/06/23 11:34 Freq: Status: Active Protocol: Document 01/27/24 10:30 DCW (Rec: 01/27/24 11:05 DCW [id number]) Functional Tests 6 Minute Walk Test Distance 1053' Device Used None Comments 2.93 ft/sec Dynamic Gait Index (DGI) Score DGI Impairment Rating 1 to <20% Impaired (Score 20- 23) PT-OP-F Manual Assessment Start: 09/06/23 11:34 Freq: Status: Active Protocol: Document 11/26/23 10:30 DCW (Rec: 11/26/23 11:03 DCW [id number]) Manual Assessments Soft Tissue Assessment Soft Tissue Mobility Assessment Surgical incisions healed. No edema. PT-OP-G Mobility & Gait Start: 09/06/23 11:34 Freq: Status: Active Protocol: Document 01/27/24 10:30 DCW (Rec: 01/27/24 11:05 DCW [id number]) OP Gait Assessment Gait Gait Assistance Required: Independent Distance (Feet) 1,053 Able to Maintain Weight Bearing Status Yes During Gait Assistive Devices Assistive Device None Gait Deviations General Gait Pattern Antalgic Factors Limiting Gait Function Factors Limiting Gait Function Decreased Activity Tolerance, Decreased Strength,Limited Range of Motion,Pain Stair Climbing Evaluation Evaluation Level of Assist On Stairs Independent Devices Stair Climbing Assistive Devices Left Railing,Right Railing Technique/Endurance Stair Climbing Direction Ascend and Descend Stair Climbing Technique Step Over Step Number of Steps Climbed 4 Stair Climbing Set # Repetitions (reps) 2 PT-OP-K Range of Motion Start: 09/06/23 11:34 Freq: Status: Active Protocol: Document 01/27/24 10:30 DCW (Rec: 01/27/24 11:05 DCW [id number]) Knee Goniometric Range of Motion Knee Measured in Degrees Right Knee ROM WFL Yes Patient Position Supine Flexion Active (degrees) 144 Flexion Passive (degrees) 150 Extension Active (degrees) 0 Ankle and Foot Goniometric Range of Motion Ankle and Foot Measured in Degrees Right Active Testing Position Supine Dorsiflexion with Knee Flexed 10 Dorsiflexion with Knee Extended 10 Plantarflexion 45 Inversion 45 Eversion 17 PT-OP-M Strength Start: 09/06/23 11:34 Freq: Status: Active Protocol: Document 01/27/24 10:30 DCW (Rec: 01/27/24 11:05 DCW [id number]) Knee Strength Knee Manual Muscle Testing Right Flexion (S2) 4+ Good+ Extension (L3) 4+ Good+ Ankle/Foot Strength Ankle and Foot Manual Muscle Testing Right Dorsiflexion (L4) 4+ Good+ Plantarflexion (S1) 3- Fair- Inversion 4 Good Eversion (S1) 4 Good PT-OP-T Assessment and Plan Start: 09/06/23 11:34 Freq: Status: Active Protocol: Document 01/27/24 10:30 DCW (Rec: 01/27/24 11:10 DCW [id number]) Physical Therapy Assessment Impairments Impairments Activity Tolerance,Balance, Coordination,Edema,Functional Activities,Functional Mobility ,Gait,Pain,Posture,ROM,Soft Tissue Mobility,Strength Goals Walking Impairment Pt able to walk 5-6 min before need to sit at IE. Short Term Goal (STG) Pt able to ambulate 15 min before need to sit. STG Duration Met Care Home Goal (LTG) Pt able to ambulate 30 min before need to sit. LTG Duration Met Gait Impairment Pt ambulating with 4WW. Short Term Goal (STG) Pt able to ambulate safely with SPC. STG Duration Met Cut Lace Machine Operator Goal (LTG) Pt able to ambulate safely without AD. LTG Duration Met LEFS Impairment Pt with score of 12/80 on LEFS at IE Short Term Goal (STG) Pt with score of 35/80 10/07/23: Pt with gradual progression with score of 19/ 80. STG Duration 12/27/23 Care Home Goal (LTG) Pt with score of 45/80 on LEFS LTG Duration 03/28/24 - Improving Strength Impairment Pt with 3/5 to 3+/5 R LE strength grossly. Short Term Goal (STG) Pt with 4-/5 to 4/5 R LE strength grossly. : Pt with improved strength compared to IE, progressing towards goal STG Duration 02/27/24 Cut Lace Machine Operator Goal (LTG) Pt with 4+/5 to 5/5 R LE strength grossly. LTG Duration 03/28/24 - Improving Pain Impairment Pt with 9/10 at worst at IE. Short Term Goal (STG) Pt to report pain at 6/10 at the worst. STG Duration Met Cut Lace Machine Operator Goal (LTG) Pt to report that pain is <1/ 10 at the worst. LTG Duration 01/25/24 - Improving Assessment Summary Assessment Pt progressing toward goals in all areasa, has met activity tolerance and ROM goals. Still demonstrating decreased strength in ankle strength, which continues to impact gait ability and stability, resulting in antalgia throughout gait cycle. Would likely benefit from continuing focus on ankle strength and gait training in effort to improve quality of gait pattern. Physical Therapy Plan Frequency and Duration Frequency of Treatment 2x/Week Plan of Care Start Date 01/27/24 Plan of Care End Date 03/28/24 Therapeutic Interventions Therapeutic Interventions Balance Training,Coordination Training,Gait Training,Home Exercise Program,Joint Mobilizations,Manual Therapy, Neuromuscular Re-education, Patient/Caregiver Education, Self-Care/Home Management,Soft Tissue Mobilization,Taping, Therapeutic Activities, Therapeutic Exercises Modalities Cold Pack/Ice Massage,Electric Stimulation,Hot Packs, Ultrasound Next Visit Focus/Plan Next Note Type Treatment Note Next Visit Plan Future tx: R hip abd, glut, calf strengthening and balance training safety /c AD progression. POC: progress R LE strength and mobility, progress HEP
--- NOTE | 2024-01-27 11:10 | PT.OPPOC ---
Physical, Occupational & Speech Therapy At [facility] Current Diagnoses Displaced spiral fracture of shaft of right tibia, subsequent encounter for closed fracture with routine healing (01/27/24) Visit Care Team Role Provider Type Other Providers Specialty: Address: Phone: Fax: Email: Jose Brito MD Family Provider Physician Primary Care Provider Specialty: Internal Medicine Address: [address] [place] [address], [address], [address] Email: [email or web address] Cordell Jauregui PA-C Attending Provider Non-Staff Referring Provider Specialty: Medical Address: [address] [place] [address], [id number] Email: Plan Of Care PT-OP-T Assessment and Plan Start: 09/06/23 11:34 Freq: Status: Active Protocol: Document 01/27/24 10:30 DCW (Rec: 01/27/24 11:10 DCW [id number]) Physical Therapy Assessment Impairments Impairments Activity Tolerance,Balance, Coordination,Edema,Functional Activities,Functional Mobility ,Gait,Pain,Posture,ROM,Soft Tissue Mobility,Strength Goals Walking Impairment Pt able to walk 5-6 min before need to sit at IE. Short Term Goal (STG) Pt able to ambulate 15 min before need to sit. STG Duration Met Fuel Verification Technician Goal (LTG) Pt able to ambulate 30 min before need to sit. LTG Duration Met Gait Impairment Pt ambulating with 4WW. Short Term Goal (STG) Pt able to ambulate safely with SPC. STG Duration Met Fuel Verification Technician Goal (LTG) Pt able to ambulate safely without AD. LTG Duration Met LEFS Impairment Pt with score of 12/80 on LEFS at IE Short Term Goal (STG) Pt with score of 35/80 10/07/23: Pt with gradual progression with score of 19/ 80. STG Duration 12/27/23 Senior Living Goal (LTG) Pt with score of 45/80 on LEFS LTG Duration 03/28/24 - Improving Strength Impairment Pt with 3/5 to 3+/5 R LE strength grossly. Short Term Goal (STG) Pt with 4-/5 to 4/5 R LE strength grossly. 10/07/we: Pt with improved strength compared to IE, progressing towards goal STG Duration 02/27/24 Senior Living Goal (LTG) Pt with 4+/5 to 5/5 R LE strength grossly. LTG Duration 03/28/24 - Improving Pain Impairment Pt with 9/10 at worst at IE. Short Term Goal (STG) Pt to report pain at 6/10 at the worst. STG Duration Met Fuel Verification Technician Goal (LTG) Pt to report that pain is <1/ 10 at the worst. LTG Duration 01/25/24 - Improving Assessment Summary Assessment Pt progressing toward goals in all areasa, has met activity tolerance and ROM goals. Still demonstrating decreased strength in ankle strength, which continues to impact gait ability and stability, resulting in antalgia throughout gait cycle. Would likely benefit from continuing focus on ankle strength and gait training in effort to improve quality of gait pattern. Physical Therapy Plan Frequency and Duration Frequency of Treatment 2x/Week Plan of Care Start Date 01/27/24 Plan of Care End Date 03/28/24 Therapeutic Interventions Therapeutic Interventions Balance Training,Coordination Training,Gait Training,Home Exercise Program,Joint Mobilizations,Manual Therapy, Neuromuscular Re-education, Patient/Caregiver Education, Self-Care/Home Management,Soft Tissue Mobilization,Taping, Therapeutic Activities, Therapeutic Exercises Modalities Cold Pack/Ice Massage,Electric Stimulation,Hot Packs, Ultrasound Next Visit Focus/Plan Next Note Type Treatment Note Next Visit Plan Future tx: R hip abd, glut, calf strengthening and balance training safety /c AD progression. POC: progress R LE strength and mobility, progress HEP Plan of Care Dates Plan of Care Start Date 01/27/24 Plan of Care End Date 03/28/24 Electronically Signed by: Moe Pandya, PT 01/27/24 2481 If you are in agreement with this Plan of Care, please return a signed and dated copy. I have reviewed this Plan of Care and certify that the skilled therapy services above are required to meet the patient?s needs. Physician Signature Date Printed Name and Credentials Clinical Instructor Signature Printed Name and Credentials
--- NOTE | 2024-02-05 11:32 | PT-OP ANOTE ---
Phoned patient regarding no show, and patient reported she left a message on the machine for us at around 5 am that she is sick and didn't want to make anyone here sick. Lorenzo made aware that next appointment with physical therapy is Saturday02/11/2024.
--- NOTE | 2024-02-11 12:27 | PT.OTN ---
Current Diagnoses Displaced spiral fracture of shaft of right tibia, subsequent encounter for closed fracture with routine healing (02/11/24) Physical Therapy Treatment Note PT-OP-A Visit Information Start: 09/06/23 11:34 Freq: Status: Active Protocol: Document 02/11/24 11:20 NBM (Rec: 02/11/24 12:27 NBM [id number]) Out-Patient Physical Therapy Visit Information Visit Information Visit Type Treatment Note Visit Start Time 11:21 Visit Stop Time 12:10 Visit Number 24 Number of IT SECURITY PROJECT MANAGER Visits 1 Evaluation Information Evaluation Date 09/06/23 PT-OP-B Current Condition Start: 09/06/23 11:34 Freq: Status: Active Protocol: Document 09/27/23 14:20 AM (Rec: 09/27/23 16:39 AM [id number]) Current Condition History of Current Condition Onset Date 07/22/23 Current Complaints R Lower leg pain from recent fracture History of Current Condition Pt fractured R tib-fib on . Pt had surgical repair on 07/23/23. Pt was TDWB, though now WBAT. Pt slipped on a step and fell. Pt had previous issue of R knee giving out on her. Pt reports that she had a fall 2 months prior. Prior Treatments and Tests Intramedullary nail PT-OP-C Subjective Start: 09/06/23 11:34 Freq: Status: Active Protocol: Document 02/11/24 11:20 NBM (Rec: 02/11/24 12:27 NBM [id number]) OP-PT Subjective Patient Comments Patient Comments Pt was able to stand on R leg gto put on L pant leg today. She's getting up and doing more things around the house, and going up and down the stairs at home. She was sick for the last week. She wants to have her R knee worked on. PT-OP-D Balance Start: 09/06/23 11:34 Freq: Status: Active Protocol: Document 01/27/24 10:30 DCW (Rec: 01/27/24 11:05 DCW [id number]) OP-PT Balance Assessment Standing Balance Static Standing Balance Ability Good Dynamic Standing Balance Ability Good Device Used None Vargas Fall Scale Copyright Permission PT-OP-E Functional Tests Start: 09/06/23 11:34 Freq: Status: Active Protocol: Document 01/27/24 10:30 DCW (Rec: 01/27/24 11:05 DCW [id number]) Functional Tests 6 Minute Walk Test Distance 1053' Device Used None Comments 2.93 ft/sec Dynamic Gait Index (DGI) Score DGI Impairment Rating 1 to <20% Impaired (Score 20- 23) PT-OP-F Manual Assessment Start: 09/06/23 11:34 Freq: Status: Active Protocol: Document 11/26/23 10:30 DCW (Rec: 11/26/23 11:03 DCW [id number]) Manual Assessments Soft Tissue Assessment Soft Tissue Mobility Assessment Surgical incisions healed. No edema. PT-OP-G Mobility & Gait Start: 09/06/23 11:34 Freq: Status: Active Protocol: Document 01/27/24 10:30 DCW (Rec: 01/27/24 11:05 DCW [id number]) OP Gait Assessment Gait Gait Assistance Required: Independent Distance (Feet) 1,053 Able to Maintain Weight Bearing Status Yes During Gait Assistive Devices Assistive Device None Gait Deviations General Gait Pattern Antalgic Factors Limiting Gait Function Factors Limiting Gait Function Decreased Activity Tolerance, Decreased Strength,Limited Range of Motion,Pain Stair Climbing Evaluation Evaluation Level of Assist On Stairs Independent Devices Stair Climbing Assistive Devices Left Railing,Right Railing Technique/Endurance Stair Climbing Direction Ascend and Descend Stair Climbing Technique Step Over Step Number of Steps Climbed 4 Stair Climbing Set # Repetitions (reps) 2 PT-OP-K Range of Motion Start: 09/06/23 11:34 Freq: Status: Active Protocol: Document 01/27/24 10:30 DCW (Rec: 01/27/24 11:05 DCW [id number]) Knee Goniometric Range of Motion Knee Right Knee ROM WFL Yes Patient Position Supine Flexion Active (degrees) 144 Flexion Passive (degrees) 150 Extension Active (degrees) 0 Ankle and Foot Goniometric Range of Motion Ankle and Foot Right Active Testing Position Supine Dorsiflexion with Knee Flexed 10 Dorsiflexion with Knee Extended 10 Plantarflexion 45 Inversion 45 Eversion 17 PT-OP-M Strength Start: 09/06/23 11:34 Freq: Status: Active Protocol: Document 01/27/24 10:30 DCW (Rec: 01/27/24 11:05 DCW [id number]) Knee Strength Knee Manual Muscle Testing Right Flexion (S2) 4+ Good+ Extension (L3) 4+ Good+ Ankle/Foot Strength Ankle and Foot Manual Muscle Testing Right Dorsiflexion (L4) 4+ Good+ Plantarflexion (S1) 3- Fair- Inversion 4 Good Eversion (S1) 4 Good PT-OP-Q Treatments Start: 09/06/23 11:34 Freq: Status: Active Protocol: Document 02/11/24 11:20 NB (Rec: 02/11/24 12:27 [facility] [id number]) Gym Equipment Shuttle Recovery Bilateral Heel Raises Details cues for R oversupination Resistance 37# (one new) Shuttle Recovery Platform Stable Reps/Time x20 Unilateral squat Resistance 37# (one new) Shuttle Recovery Platform Stable Reps/Time x20 each LE Bilateral squat Resistance 50# (two new) Shuttle Recovery Platform Stable,Unstable Reps/Time x20 stable, x15 unstable (vc RLE alignment) Shuttle Balance Red Details a/p, m/l WBOS, a/p Staggered Comments 1.hold platform still 2.weightshifting>eccentric control m/l focus on increasing WB into RLE Therapeutic Exercises Sitting Exercises Calf stretch Sitting Exercise Name and HS stretch w/ ankle pumps Side right Equipment Used on Shuttle Recovery Reps/Minutes x1 min Other Exercises BOSU Lunge Other Exercise Name BOSU Lunge 1. DF w/ 2HHA 2. lunge Side bilateral Equipment Used Blue BOSU Comments vc for toes forward Manual Therapy Treatment Soft Tissue Mobilization R LE Body Location STM at gastroc, ant tib, patellar tendon Mobilization Type Cross-Friction,Myofascial Release,Sustained Pressure, Trigger Point Release Intensity/Depth Moderate Body Position Sitting Comments cross friction to patellar tendon Joint Mobilizations Right Knee Joint R knee Direction P<->A Grade II Body Position Hooklying Comments painfree, into FROM PT-OP-T Assessment and Plan Start: 09/06/23 11:34 Freq: Status: Active Protocol: Document 02/11/24 11:20 NBM (Rec: 02/11/24 12:27 [facility] [id number]) Physical Therapy Assessment Goals Walking Impairment Pt able to walk 5-6 min before need to sit at IE. Short Term Goal (STG) Pt able to ambulate 15 min before need to sit. STG Duration Met Fdc Goal (LTG) Pt able to ambulate 30 min before need to sit. LTG Duration Met Gait Impairment Pt ambulating with 4WW. Short Term Goal (STG) Pt able to ambulate safely with SPC. STG Duration Met [place] Goal (LTG) Pt able to ambulate safely without AD. LTG Duration Met LEFS Impairment Pt with score of 12/80 on LEFS at IE Short Term Goal (STG) Pt with score of 35/80 10/07/23: Pt with gradual progression with score of 19/ 80. STG Duration 12/27/23 Fdc Goal (LTG) Pt with score of 45/80 on LEFS LTG Duration 03/28/24 - Improving Strength Impairment Pt with 3/5 to 3+/5 R LE strength grossly. Short Term Goal (STG) Pt with 4-/5 to 4/5 R LE strength grossly. : Pt with improved strength compared to IE, progressing towards goal STG Duration 02/27/24 Fdc Goal (LTG) Pt with 4+/5 to 5/5 R LE strength grossly. LTG Duration 03/28/24 - Improving Pain Impairment Pt with 9/10 at worst at IE. Short Term Goal (STG) Pt to report pain at 6/10 at the worst. STG Duration Met Fdc Goal (LTG) Pt to report that pain is <1/ 10 at the worst. LTG Duration 01/25/24 - Improving Assessment Summary Assessment Treatment focus on LE strengthening and balance. Pt tolerates increased reps of Bilateral and Unilateral squats on Shuttle Recovery w/ good self-awareness of LE alignment except needing cueing for RLE on unstable surface. Holding platform stable on in mediolateral position on Shuttle balance is appropriately challenging. Pt requires occasional cues for neutral foot position and for increasing weightbearing through R forefoot in closed- chain position. Physical Therapy Plan Frequency and Duration Frequency of Treatment 2x/Week Plan of Care Start Date 01/27/24 Plan of Care End Date 03/28/24 Therapeutic Interventions Therapeutic Interventions Balance Training,Coordination Training,Gait Training,Home Exercise Program,Joint Mobilizations,Manual Therapy, Neuromuscular Re-education, Patient/Caregiver Education, Self-Care/Home Management,Soft Tissue Mobilization,Taping, Therapeutic Activities, Therapeutic Exercises Modalities Cold Pack/Ice Massage,Electric Stimulation,Hot Packs, Ultrasound Next Visit Focus/Plan Next Note Type Treatment Note Next Visit Plan Future tx: R hip abd, glut, calf strengthening and balance training safety /c AD progression. POC: progress R LE strength and mobility, progress HEP
--- NOTE | 2024-02-27 11:16 | PT.OTN ---
Current Diagnoses Displaced spiral fracture of shaft of right tibia, subsequent encounter for closed fracture with routine healing (02/27/24) Physical Therapy Treatment Note PT-OP-A Visit Information Start: 09/06/23 11:34 Freq: Status: Active Protocol: Document 02/27/24 10:30 DCW (Rec: 02/27/24 11:15 DCW [id number]) Out-Patient Physical Therapy Visit Information Visit Information Visit Type Treatment Note Visit Start Time 10:30 Visit Stop Time 11:15 Visit Number 25 Number of SENIOR GAME DESIGNER Visits 0 Evaluation Information Evaluation Date 09/06/23 PT-OP-B Current Condition Start: 09/06/23 11:34 Freq: Status: Active Protocol: Document 09/27/23 14:20 AM (Rec: 09/27/23 16:39 AM [id number]) Current Condition History of Current Condition Onset Date 07/22/23 Current Complaints R Lower leg pain from recent fracture History of Current Condition Pt fractured R tib-fib on . Pt had surgical repair on 07/23/23. Pt was TDWB, though now WBAT. Pt slipped on a step and fell. Pt had previous issue of R knee giving out on her. Pt reports that she had a fall 2 months prior. Prior Treatments and Tests Intramedullary nail PT-OP-C Subjective Start: 09/06/23 11:34 Freq: Status: Active Protocol: Document 02/27/24 10:30 DCW (Rec: 02/27/24 11:15 DCW [id number]) OP-PT Subjective Patient Comments Patient Comments Pt has been out of town visiting family, notes she was really pushing myself to keep up with the kids. PT-OP-D Balance Start: 09/06/23 11:34 Freq: Status: Active Protocol: Document 01/27/24 10:30 DCW (Rec: 01/27/24 11:05 DCW [id number]) OP-PT Balance Assessment Standing Balance Static Standing Balance Ability Good Dynamic Standing Balance Ability Good Device Used None Vargas Fall Scale Copyright Permission PT-OP-E Functional Tests Start: 09/06/23 11:34 Freq: Status: Active Protocol: Document 01/27/24 10:30 DCW (Rec: 01/27/24 11:05 DCW [id number]) Functional Tests 6 Minute Walk Test Distance 1053' Device Used None Comments 2.93 ft/sec Dynamic Gait Index (DGI) Score DGI Impairment Rating 1 to <20% Impaired (Score 20- 23) PT-OP-F Manual Assessment Start: 09/06/23 11:34 Freq: Status: Active Protocol: Document 11/26/23 10:30 DCW (Rec: 11/26/23 11:03 DCW [id number]) Manual Assessments Soft Tissue Assessment Soft Tissue Mobility Assessment Surgical incisions healed. No edema. PT-OP-G Mobility & Gait Start: 09/06/23 11:34 Freq: Status: Active Protocol: Document 01/27/24 10:30 DCW (Rec: 01/27/24 11:05 DCW [id number]) OP Gait Assessment Gait Gait Assistance Required: Independent Distance (Feet) 1,053 Able to Maintain Weight Bearing Status Yes During Gait Assistive Devices Assistive Device None Gait Deviations General Gait Pattern Antalgic Factors Limiting Gait Function Factors Limiting Gait Function Decreased Activity Tolerance, Decreased Strength,Limited Range of Motion,Pain Stair Climbing Evaluation Evaluation Level of Assist On Stairs Independent Devices Stair Climbing Assistive Devices Left Railing,Right Railing Technique/Endurance Stair Climbing Direction Ascend and Descend Stair Climbing Technique Step Over Step Number of Steps Climbed 4 Stair Climbing Set # Repetitions (reps) 2 PT-OP-K Range of Motion Start: 09/06/23 11:34 Freq: Status: Active Protocol: Document 01/27/24 10:30 DCW (Rec: 01/27/24 11:05 DCW [id number]) Knee Goniometric Range of Motion Knee Right Knee ROM WFL Yes Patient Position Supine Flexion Active (degrees) 144 Flexion Passive (degrees) 150 Extension Active (degrees) 0 Ankle and Foot Goniometric Range of Motion Ankle and Foot Right Active Testing Position Supine Dorsiflexion with Knee Flexed 10 Dorsiflexion with Knee Extended 10 Plantarflexion 45 Inversion 45 Eversion 17 PT-OP-M Strength Start: 09/06/23 11:34 Freq: Status: Active Protocol: Document 01/27/24 10:30 DCW (Rec: 01/27/24 11:05 DCW [id number]) Knee Strength Knee Manual Muscle Testing Right Flexion (S2) 4+ Good+ Extension (L3) 4+ Good+ Ankle/Foot Strength Ankle and Foot Manual Muscle Testing Right Dorsiflexion (L4) 4+ Good+ Plantarflexion (S1) 3- Fair- Inversion 4 Good Eversion (S1) 4 Good PT-OP-Q Treatments Start: 09/06/23 11:34 Freq: Status: Active Protocol: Document 02/27/24 10:30 DCW (Rec: 02/27/24 11:15 DCW [id number]) Gym Equipment Shuttle Recovery Bilateral Heel Raises Details cues for R oversupination Resistance 37# (one new) Shuttle Recovery Platform Stable Reps/Time x20 Unilateral squat Resistance 37# (one new) Shuttle Recovery Platform Stable Reps/Time x20 each LE Bilateral squat Resistance 62# (two new) Shuttle Recovery Platform Stable Reps/Time x20 stable Shuttle Balance Red Details WBOS, Staggered Manual Therapy Treatment Soft Tissue Mobilization R LE Body Location STM at gastroc, ant tib, patellar tendon Mobilization Type Cross-Friction,Myofascial Release,Sustained Pressure, Trigger Point Release Intensity/Depth Moderate Body Position Sitting Comments cross friction to patellar tendon Joint Mobilizations Right Knee Joint R knee Direction P<->A Grade II Body Position Sitting Comments painfree, into FROM PT-OP-T Assessment and Plan Start: 09/06/23 11:34 Freq: Status: Active Protocol: Document 02/27/24 10:30 DCW (Rec: 02/27/24 11:15 DCW [id number]) Physical Therapy Assessment Impairments Impairments Activity Tolerance,Balance, Coordination,Edema,Functional Activities,Functional Mobility ,Gait,Pain,Posture,ROM,Soft Tissue Mobility,Strength Goals Walking Impairment Pt able to walk 5-6 min before need to sit at IE. Short Term Goal (STG) Pt able to ambulate 15 min before need to sit. STG Duration Met Shelter Goal (LTG) Pt able to ambulate 30 min before need to sit. LTG Duration Met Gait Impairment Pt ambulating with 4WW. Short Term Goal (STG) Pt able to ambulate safely with SPC. STG Duration Met Business Services Manager Goal (LTG) Pt able to ambulate safely without AD. LTG Duration Met LEFS Impairment Pt with score of 12/80 on LEFS at IE Short Term Goal (STG) Pt with score of 35/80 10/07/23: Pt with gradual progression with score of 19/ 80. STG Duration 12/27/23 Business Services Manager Goal (LTG) Pt with score of 45/80 on LEFS LTG Duration 03/28/24 - Improving Strength Impairment Pt with 3/5 to 3+/5 R LE strength grossly. Short Term Goal (STG) Pt with 4-/5 to 4/5 R LE strength grossly. 10/07/: Pt with improved strength compared to IE, progressing towards goal STG Duration 02/27/24 Business Services Manager Goal (LTG) Pt with 4+/5 to 5/5 R LE strength grossly. LTG Duration 03/28/24 - Improving Pain Impairment Pt with 9/10 at worst at IE. Short Term Goal (STG) Pt to report pain at 6/10 at the worst. STG Duration Met Shelter Goal (LTG) Pt to report that pain is <1/ 10 at the worst. LTG Duration 01/25/24 - Improving Assessment Summary Assessment Pt doing very well, will likely be approaching discharge following next appointment. Will focus on retesting, review of HEP, and answering any lingering questions. Physical Therapy Plan Frequency and Duration Frequency of Treatment 2x/Week Plan of Care Start Date 01/27/24 Plan of Care End Date 03/28/24 Therapeutic Interventions Therapeutic Interventions Balance Training,Coordination Training,Gait Training,Home Exercise Program,Joint Mobilizations,Manual Therapy, Neuromuscular Re-education, Patient/Caregiver Education, Self-Care/Home Management,Soft Tissue Mobilization,Taping, Therapeutic Activities, Therapeutic Exercises Modalities Cold Pack/Ice Massage,Electric Stimulation,Hot Packs, Ultrasound Next Visit Focus/Plan Next Note Type Discharge Summary Next Visit Plan Future tx: R hip abd, glut, calf strengthening and balance training safety /c AD progression. POC: progress R LE strength and mobility, progress HEP
--- NOTE | 2024-03-06 10:19 | PT.OTN ---
Current Diagnoses Displaced spiral fracture of shaft of right tibia, subsequent encounter for closed fracture with routine healing (03/06/24) Physical Therapy Treatment Note PT-OP-A Visit Information Start: 09/06/23 11:34 Freq: Status: Active Protocol: Document 03/06/24 09:45 DCW (Rec: 03/06/24 10:19 DCW [id number]) Out-Patient Physical Therapy Visit Information Visit Information Visit Type Discharge Summary Visit Start Time 09:45 Visit Stop Time 10:15 Visit Number 26 Number of WATER QUALITY TECHNICIAN Visits 0 Evaluation Information Evaluation Date 09/06/23 PT-OP-B Current Condition Start: 09/06/23 11:34 Freq: Status: Active Protocol: Document 09/27/23 14:20 AM (Rec: 09/27/23 16:39 AM [id number]) Current Condition History of Current Condition Onset Date 07/22/23 Current Complaints R Lower leg pain from recent fracture History of Current Condition Pt fractured R tib-fib on . Pt had surgical repair on 07/23/23. Pt was TDWB, though now WBAT. Pt slipped on a step and fell. Pt had previous issue of R knee giving out on her. Pt reports that she had a fall 2 months prior. Prior Treatments and Tests Intramedullary nail PT-OP-C Subjective Start: 09/06/23 11:34 Freq: Status: Active Protocol: Document 03/06/24 09:45 DCW (Rec: 03/06/24 10:19 DCW [id number]) OP-PT Subjective Patient Comments Patient Comments Pt notes some continued tenderness where hardware is in her leg, especially with weight of left leg on it while sleeping. Some general achiness with extended time walking, but overall feeling well overall. PT-OP-D Balance Start: 09/06/23 11:34 Freq: Status: Active Protocol: Document 01/27/24 10:30 DCW (Rec: 01/27/24 11:05 DCW [id number]) OP-PT Balance Assessment Standing Balance Static Standing Balance Ability Good Dynamic Standing Balance Ability Good Device Used None Vargas Fall Scale Copyright Permission PT-OP-E Functional Tests Start: 09/06/23 11:34 Freq: Status: Active Protocol: Document 01/27/24 10:30 DCW (Rec: 01/27/24 11:05 DCW [id number]) Functional Tests 6 Minute Walk Test Distance 1053' Device Used None Comments 2.93 ft/sec Dynamic Gait Index (DGI) Score DGI Impairment Rating 1 to <20% Impaired (Score 20- 23) PT-OP-F Manual Assessment Start: 09/06/23 11:34 Freq: Status: Active Protocol: Document 11/26/23 10:30 DCW (Rec: 11/26/23 11:03 DCW [id number]) Manual Assessments Soft Tissue Assessment Soft Tissue Mobility Assessment Surgical incisions healed. No edema. PT-OP-G Mobility & Gait Start: 09/06/23 11:34 Freq: Status: Active Protocol: Document 01/27/24 10:30 DCW (Rec: 01/27/24 11:05 DCW [id number]) OP Gait Assessment Gait Gait Assistance Required: Independent Distance (Feet) 1,053 Able to Maintain Weight Bearing Status Yes During Gait Assistive Devices Assistive Device None Gait Deviations General Gait Pattern Antalgic Factors Limiting Gait Function Factors Limiting Gait Function Decreased Activity Tolerance, Decreased Strength,Limited Range of Motion,Pain Stair Climbing Evaluation Evaluation Level of Assist On Stairs Independent Devices Stair Climbing Assistive Devices Left Railing,Right Railing Technique/Endurance Stair Climbing Direction Ascend and Descend Stair Climbing Technique Step Over Step Number of Steps Climbed 4 Stair Climbing Set # Repetitions (reps) 2 PT-OP-K Range of Motion Start: 09/06/23 11:34 Freq: Status: Active Protocol: Document 01/27/24 10:30 DCW (Rec: 01/27/24 11:05 DCW [id number]) Knee Goniometric Range of Motion Knee Right Knee ROM WFL Yes Patient Position Supine Flexion Active (degrees) 144 Flexion Passive (degrees) 150 Extension Active (degrees) 0 Ankle and Foot Goniometric Range of Motion Ankle and Foot Right Active Testing Position Supine Dorsiflexion with Knee Flexed 10 Dorsiflexion with Knee Extended 10 Plantarflexion 45 Inversion 45 Eversion 17 PT-OP-M Strength Start: 09/06/23 11:34 Freq: Status: Active Protocol: Document 03/06/24 09:45 DCW (Rec: 03/06/24 10:11 DCW [id number]) Knee Strength Knee Manual Muscle Testing Right Flexion (S2) 4+ Good+ Extension (L3) 4+ Good+ Ankle/Foot Strength Ankle and Foot Manual Muscle Testing Right Dorsiflexion (L4) 4+ Good+ Plantarflexion (S1) 3+ Fair+ Inversion 4 Good Eversion (S1) 4 Good PT-OP-Q Treatments Start: 09/06/23 11:34 Freq: Status: Active Protocol: Document 03/06/24 09:45 DCW (Rec: 03/06/24 10:19 DCW [id number]) Manual Therapy Treatment Soft Tissue Mobilization R LE Body Location STM at gastroc, ant tib, patellar tendon Mobilization Type Cross-Friction,Myofascial Release,Sustained Pressure, Trigger Point Release Intensity/Depth Moderate Body Position Sitting Comments cross friction to patellar tendon PT-OP-T Assessment and Plan Start: 09/06/23 11:34 Freq: Status: Active Protocol: Document 03/06/24 09:45 DCW (Rec: 03/06/24 10:19 DCW [id number]) Physical Therapy Assessment Impairments Impairments Activity Tolerance,Balance, Coordination,Edema,Functional Activities,Functional Mobility ,Gait,Pain,Posture,ROM,Soft Tissue Mobility,Strength Goals Walking Impairment Pt able to walk 5-6 min before need to sit at IE. Short Term Goal (STG) Pt able to ambulate 15 min before need to sit. STG Duration Met Stock Parts Fabricator Goal (LTG) Pt able to ambulate 30 min before need to sit. LTG Duration Met Gait Impairment Pt ambulating with 4WW. Short Term Goal (STG) Pt able to ambulate safely with SPC. STG Duration Met Stock Parts Fabricator Goal (LTG) Pt able to ambulate safely without AD. LTG Duration Met LEFS Impairment Pt with score of 12/80 on LEFS at IE Short Term Goal (STG) Pt with score of 35/80 10/07/23: Pt with gradual progression with score of 19/ 80. STG Duration 12/27/23 Stock Parts Fabricator Goal (LTG) Pt with score of 45/80 on LEFS LTG Duration 03/28/24 - Improving Strength Impairment Pt with 3/5 to 3+/5 R LE strength grossly. Short Term Goal (STG) Pt with 4-/5 to 4/5 R LE strength grossly. : Pt with improved strength compared to IE, progressing towards goal STG Duration 02/27/24 Stock Parts Fabricator Goal (LTG) Pt with 4+/5 to 5/5 R LE strength grossly. LTG Duration 03/28/24 - Improving Pain Impairment Pt with 9/10 at worst at IE. Short Term Goal (STG) Pt to report pain at 6/10 at the worst. STG Duration Met Nursing Home Goal (LTG) Pt to report that pain is <1/ 10 at the worst. LTG Duration 01/25/24 - Improving Assessment Summary Assessment Pt has largely met all goals with exception of R ankle strength, but is showing very good progress with strength, gait, and functional mobility. Pt feels comfortable with HEP currently, has no further concerns or questions. Pt appropriate for discharge from skilled therapy at this time, understands that she can return to PT if needed, but will require a new referral. Physical Therapy Plan Frequency and Duration Frequency of Treatment 2x/Week Plan of Care Start Date 01/27/24 Plan of Care End Date 03/28/24 Therapeutic Interventions Therapeutic Interventions Balance Training,Coordination Training,Gait Training,Home Exercise Program,Joint Mobilizations,Manual Therapy, Neuromuscular Re-education, Patient/Caregiver Education, Self-Care/Home Management,Soft Tissue Mobilization,Taping, Therapeutic Activities, Therapeutic Exercises Modalities Cold Pack/Ice Massage,Electric Stimulation,Hot Packs, Ultrasound Discharge Physical Therapy Discharge Reasons Goals Met Next Visit Focus/Plan Next Note Type Discharge Summary
== END 2024-03-06 13:55 | disposition home or self-care (01) ==
LOC: PHYS 09:45
PROVIDERS: Family Provider Internal Medicine; PCP Internal Medicine; Referring Provider Physician Assistant Surgical; Visit Provider Physician Assistant Surgical
DX: S82.241D Displaced spiral fracture of shaft of right tibia, subsequent encounter for closed fracture with routine healing (principal)
CPT/HCPCS: 97110; 97112; 97116; 97140; 97161; 97530

== ENCOUNTER → 2024-03-19 08:54 | Outpatient (CLI) | payer MEDICARE, SELFPAY ==
[2022-10-23 11:50] VITALS: BMI 24.3
[2024-03-19 10:06] LABS: Add Manual Diff / Slide Review NO; Basophils Absolute Auto 100 /uL (0-100); Basophils Percent Auto 0.6 % (0-2); Eosinophils Absolute Auto 600 /uL (0-450); Eosinophils Percent Auto 5.2 % (2-4); Hematocrit 33.7 % (36-46); Lymphocytes Absolute Auto 3500 /uL (1100-4500); Lymphocytes Percent Auto 31.9 % (25-40); Mean Corpuscular HGB Conc 32.5 % (30-36); Mean Corpuscular Hemoglobin 29.5 PG (26-34); Mean Corpuscular Volume 90.5 fL (80-100); Monocytes Absolute Auto 900 /uL (0-900); Monocytes Percent Auto 8.1 % (3-14); Neutrophils Absolute Auto 5900 /uL (1500-7000); Neutrophils Percent Auto 54.2 % (50-75); Platelet Count 233 X10^3/uL (150-400); Red Blood Cell Count 3.72 X10^6/uL (4.0-5.2); Red Cell Distribution Width 13.4 % (11.6-14.8); White Blood Cell Count 10.9 X10^3/uL (4.5-11.0)
[2024-03-19 13:05] LABS: Alanine Aminotransferase 18 IU/L (<35); Albumin 4.5 g/dL (3.5-5.0); Alkaline Phosphatase 77 U/L (38-126); Aspartate Aminotransferase 20 IU/L (14-36); BUN Creatinine Ratio 14.5 (6-22); Bilirubin Total 0.6 mg/dL (0.2-1.3); Blood Urea Nitrogen 24 mg/dL (7-17); Calcium 9.1 mg/dL (8.4-10.2); Carbon Dioxide 23 mmol/L (22-32); Chloride 103 mmol/L (98-107); Cholesterol 184 mg/dL (140-199); Estimated Glomerular Filt Rate 34 mL/min (>60); Globulin 2.3 g/dL (1.7-4.1); Glucose 143 mg/dL (80-110); HDL Cholesterol 65 mg/dL (40-60); HEMOLYSIS < 15 (0-50); LDL Cholesterol Calculated 81 mg/dL (<100); Sodium 136 mmol/L (137-145); Total Protein 6.8 g/dL (6.3-8.2); Triglycerides 191 mg/dL (35-150)
[2024-03-19 21:30] LABS: Hemoglobin A1C% w Est Avg Glu 6.8 % (4.0-6.0)
== END ==
PROVIDERS: Family Provider Internal Medicine; PCP Internal Medicine; Referring Provider Internal Medicine; Visit Provider Internal Medicine
DX: E11.9 Type 2 diabetes mellitus without complications (principal); N18.31 Chronic kidney disease, stage 3a; E78.2 Mixed hyperlipidemia; D63.8 Anemia in other chronic diseases classified elsewhere
CPT/HCPCS: 36415; 80053; 80061; 83036; 85025

== ENCOUNTER → 2024-03-26 11:01 | Outpatient (CLI) | payer MEDICARE, SELFPAY ==
[2022-10-23 11:50] VITALS: BMI 24.3
[2024-03-26 12:16] LABS: BUN Creatinine Ratio 16.9 (6-22); Blood Urea Nitrogen 22 mg/dL (7-17); Calcium 9.4 mg/dL (8.4-10.2); Carbon Dioxide 27 mmol/L (22-32); Chloride 104 mmol/L (98-107); Estimated Glomerular Filt Rate 45 mL/min (>60); Glucose 157 mg/dL (80-110); HEMOLYSIS < 15 (0-50); Potassium 5.1 mmol/L (3.4-5.1); Sodium 139 mmol/L (137-145)
== END ==
LOC: LAB 11:02
PROVIDERS: Family Provider Internal Medicine; PCP Internal Medicine; Referring Provider Internal Medicine; Visit Provider Internal Medicine
DX: N18.31 Chronic kidney disease, stage 3a (principal)
CPT/HCPCS: 36415; 80048

== ENCOUNTER → 2024-04-30 09:26 | Outpatient (CLI) | payer MEDICARE, SELFPAY ==
[2022-10-23 11:50] VITALS: BMI 24.3
--- NOTE | 2024-04-30 09:28 | DI.ECHO.S_ITS ---
[facility] : : [address] : : [place] : : [id number] : : Phone: [phone] Echocardiogram Report + + :Name: DAVE CALVILLO Study Date: 04/30/2024 Height: 61 in : :[facility] ReadingLocation: Weight: 125 lb : : Gender: Female BSA: 1.5 m2 : :: 1955 Age: 68 yrs BP: 142/72 mmHg: :Reason For Study: CARDIOMYOPATHY : :Ordering Physician: COMFORT, : :DAWIT Murguia Performed By: Nevin Solis : :Referring: DAWIT MOYER : + + Interpretation Summary The ejection fraction is estimated to be 45-50%. Grade I diastolic dysfunction. The left atrium is severely dilated. The right ventricle is normal in size and function. There is mild mitral regurgitation. There is mild tricuspid regurgitation. The right ventricular systolic pressure is estimated to be at least 29 mmHg based on an estimated right atrial pressure of 3 mm Hg. Compared to the prior study dated 03/20/2020, the ejection fraction has increased. Procedure: A two-dimensional transthoracic echocardiogram with color flow and Doppler was performed. The study quality was technically adequate. The heart rate ranged between 64-70 bpm during the study. Left Ventricle: The left ventricle is normal in size and wall thickness. The ejection fraction is estimated to be 45-50%. Diastolic parameters suggest a relaxation abnormality of the left ventricle, consistent with probable normal filling pressures. Right Ventricle: The right ventricle is normal in size and function. Atria: The left atrium is severely dilated. Right atrial size is normal. There is no Doppler evidence for an interatrial shunt. Mitral Valve: The mitral valve is normal. There is mild mitral regurgitation. Aortic Valve: The aortic valve is trileaflet. The aortic valve opens well. There is no aortic valve stenosis. No aortic regurgitation is present. Tricuspid Valve: The tricuspid valve is normal. There is mild tricuspid regurgitation. The right ventricular systolic pressure is estimated to be at least 29 mmHg based on an estimated right atrial pressure of 3 mm Hg. Pulmonic Valve: The pulmonic valve leaflets are thin and pliable; valve motion is normal. There is trace pulmonic regurgitation. Great Vessels: The aortic root is normal size. The ascending aorta could not be visualized. The IVC is of normal diameter and collapses greater than 50% with a sniff. This suggests a low right atrial pressure of 3 mm Hg. Pericardium/ Pleura There is no pericardial effusion. There is no pleural effusion. MMode/2D Measurements & Calculations LVIDd: 5.2 cm LVOT diam: 2.0 cm LVIDs: 3.6 cm Ao root diam: 2.8 cm FS: 30.1 % asc Aorta Diam: 2.9 cm IVSd: 0.65 cm Ao Arch Diam (Prox Trans): 2.0 cm LVPWd: 0.64 cm LV perez. diameter/BSA (cm/m^2): 3.4 LV sys. diameter/BSA (cm/m^2): 2.3 LA A2 area: 23.4 cm2 RA long axis: 4.7 cm LA A4 area: 23.3 cm2 RA area: 13.6 cm2 LA length (vol): 5.7 cm RA vol: 33.4 ml LA vol: 81.6 ml RA : 21.6 ml/m2 LA vol index: 52.7 ml/m2 IVC diam: 1.8 cm RVD1 (basal): 3.6 cm RVD2 (mid): 2.9 cm TAPSE: 1.7 cm Doppler Measurements & Calculations Ao V2 max: 116.5 cm/sec LVOT Max Lance: 67.7 cm/sec Ao V2 mean: 83.0 cm/sec LV V1 max P.8 mmHg Ao max P.4 mmHg LV V1 VTI: 18.4 cm Ao mean P.9 mmHg LETHA(I,D): 2.1 cm2 Ao V2 VTI: 28.4 cm LETHA(V,D): 1.9 cm2 sev ratio: 0.65 LETHA indexed to BSA (cm^2/m^2): 1.3 MV E max lance: 76.8 cm/sec TR max lance: 254.8 cm/sec MV A max lance: 53.0 cm/sec TR max P.0 mmHg MV E/A: 1.4 PA V2 max: 84.3 cm/sec Med Peak E' Lance: 6.9 cm/sec PA V2 mean: 59.5 cm/sec E/E' med: 11.1 PA mean P.6 mmHg Lat Peak E' Lance: 10.4 cm/sec PA pr(Accel): -1.5 mmHg E/E' lat: 7.4 E/e' average: 9.2 MV dec time: 0.22 sec SVLVOT): 59.3 ml Reading Physician:04:16 PM
== END ==
LOC: ECHO 09:27
PROVIDERS: Family Provider Internal Medicine; PCP Internal Medicine; Referring Provider Internal Medicine; Visit Provider Internal Medicine
DX: I08.1 Rheumatic disorders of both mitral and tricuspid valves (principal); I25.10 Atherosclerotic heart disease of native coronary artery without angina pectoris; I42.9 Cardiomyopathy, unspecified
CPT/HCPCS: 93306

== ENCOUNTER → 2024-08-25 10:50 | Outpatient (CLI) | payer MEDICARE, SELFPAY ==
[2024-05-18 09:31] VITALS: BMI 24.3
[2024-08-25 12:28] LABS: Hemoglobin A1C% w Est Avg Glu 7.1 % (4.0-6.0)
[2024-08-25 12:34] LABS: Alanine Aminotransferase 24 IU/L (<35); Albumin 4.5 g/dL (3.5-5.0); Albumin Globulin Ratio 1.7 (1.0-2.8); Alkaline Phosphatase 83 U/L (38-126); Aspartate Aminotransferase 27 IU/L (14-36); BUN Creatinine Ratio 20.6 (6-22); Bilirubin Total 0.6 mg/dL (0.2-1.3); Blood Urea Nitrogen 21 mg/dL (7-17); Calcium 9.2 mg/dL (8.4-10.2); Carbon Dioxide 26 mmol/L (22-32); Chloride 102 mmol/L (98-107); Cholesterol 176 mg/dL (140-199); Estimated Glomerular Filt Rate > 60 mL/min (>60); Globulin 2.7 g/dL (1.7-4.1); Glucose 173 mg/dL (80-110); HDL Cholesterol 54 mg/dL (40-60); HEMOLYSIS < 15 (0-50); LDL Cholesterol Calculated 72 mg/dL (<100); Potassium 4.3 mmol/L (3.4-5.1); Sodium 137 mmol/L (137-145); Total Protein 7.2 g/dL (6.3-8.2); Triglycerides 249 mg/dL (35-150)
== END ==
PROVIDERS: Family Provider Internal Medicine; PCP Internal Medicine; Referring Provider Internal Medicine; Visit Provider Internal Medicine
DX: E11.9 Type 2 diabetes mellitus without complications (principal); I25.10 Atherosclerotic heart disease of native coronary artery without angina pectoris; N18.31 Chronic kidney disease, stage 3a; E78.2 Mixed hyperlipidemia
CPT/HCPCS: 36415; 80053; 80061; 83036

== ENCOUNTER → 2025-02-12 08:04 | Outpatient (CLI) | payer MEDICARE, SELFPAY ==
[2024-05-18 09:31] VITALS: BMI 24.3
[2025-02-12 09:11] LABS: Alanine Aminotransferase 23 IU/L (<35); Albumin 4.6 g/dL (3.5-5.0); Albumin Globulin Ratio 1.8 (1.0-2.8); Alkaline Phosphatase 70 U/L (38-126); Aspartate Aminotransferase 29 IU/L (14-36); BUN Creatinine Ratio 23.5 (6-22); Bilirubin Total 0.8 mg/dL (0.2-1.3); Blood Urea Nitrogen 19 mg/dL (7-17); Calcium 9.9 mg/dL (8.4-10.2); Carbon Dioxide 23 mmol/L (22-32); Cholesterol 163 mg/dL (140-199); Estimated Glomerular Filt Rate > 60 mL/min (>60); Globulin 2.6 g/dL (1.7-4.1); Glucose 192 mg/dL (80-110); HDL Cholesterol 45 mg/dL (40-60); HEMOLYSIS 47 (0-50); LDL Cholesterol Calculated 78 mg/dL (<100); Total Protein 7.2 g/dL (6.3-8.2); Triglycerides 200 mg/dL (35-150)
[2025-02-12 10:35] LABS: Chloride 101 mmol/L (98-107); Potassium 4.5 mmol/L (3.4-5.1); Sodium 138 mmol/L (137-145)
[2025-02-12 12:39] LABS: Hemoglobin A1C% w Est Avg Glu 6.8 % (4.0-6.0)
== END ==
PROVIDERS: Family Provider Internal Medicine; PCP Internal Medicine; Referring Provider Internal Medicine; Visit Provider Internal Medicine
DX: E11.9 Type 2 diabetes mellitus without complications (principal); E78.2 Mixed hyperlipidemia; N18.31 Chronic kidney disease, stage 3a; I42.9 Cardiomyopathy, unspecified
CPT/HCPCS: 36415; 80053; 80061; 82043; 82570; 83036

== ENCOUNTER → 2025-05-10 09:50 | Outpatient (CLI) | payer MEDICARE, SELFPAY ==
[2024-05-18 09:31] VITALS: BMI 24.3
--- NOTE | 2025-05-10 09:51 | DI.RAD.S_ITS ---
PROCEDURE: XR KNEE LT 3V INDICATIONS: knee pain TECHNIQUE: 3 views of the knee were acquired. COMPARISON: None. FINDINGS: Bones: There are no osseous abnormalities. Joints: The tibialfemoral and patellofemoral joints show moderate degeneration. There is moderate chondrocalcinosis in the mediolateral menisci. Moderate chondrocalcinosis in the mediolateral menisci. Small effusion Soft tissues: Normal IMPRESSION: Moderate degeneration. Moderate chondrocalcinosis medial and lateral l menisci . This can be related pseudogout Dictated by: Jose Perez M.D. on 05/11/2025 at 10:56 Approved by: Jose Perez M.D. on 05/11/2025 at 10:57
== END ==
PROVIDERS: Family Provider Internal Medicine; PCP Internal Medicine; Referring Provider Internal Medicine; Visit Provider Internal Medicine
DX: M17.12 Unilateral primary osteoarthritis, left knee (principal); M11.262 Other chondrocalcinosis, left knee; M25.569 Pain in unspecified knee
CPT/HCPCS: 73562

== ENCOUNTER → 2025-06-18 10:56 | Outpatient (CLI) | payer MEDICARE, SELFPAY ==
[2024-05-18 09:31] VITALS: BMI 24.3
--- NOTE | 2025-06-18 10:57 | DI.MRI.S_ITS ---
PROCEDURE: MR KNEE LT WO CON INDICATIONS: r/o meniscus tear TECHNIQUE: Noncontrast sagittal PD fast spin echo and T2 fast spin echo with fat saturation, sagittal 3-D FLASH with fat saturation; coronal T1 spin echo and PD fast spin echo with fat saturation, and axial PD fast spin echo with fat saturation through the knee. COMPARISON: [facility], CR, XR KNEE LT 3V, 05/10/2025, 9:47. FINDINGS: Image quality: Excellent. Anterior cruciate ligament: Intact. Posterior cruciate ligament: Intact. Medial collateral ligament: Intact. Lateral collateral ligament: Intact. Medial meniscus: Deep radial tearing at the posterior horn of the medial meniscus near the posterior root attachment without significant meniscal extrusion. Lateral meniscus: Intact. Medial and lateral tendons: The semimembranosus tendon insertions appear intact. Visualized portions of the pes anserinus tendons appear normal. The popliteus tendon is intact. Iliotibial band appears normal. Anterior structures: The quadriceps and patellar tendons appear intact. No patellar subluxation. No femoral trochlear dysplasia or ventral trochlear prominence. No edema in the infrapatellar fat pad. Bones: No bone marrow contusions or fractures. Medial femorotibial cartilage: Small area of high-grade versus full-thickness cartilage loss at the anterior weight-bearing portion of the lateral femoral condyle and adjacent lateral tibial plateau with subchondral cystic changes and edema. Lateral femorotibial cartilage: No focal cartilage defect. Patellofemoral cartilage: Mild partial-thickness cartilage thinning and irregularity. Soft tissues: Small joint effusion. Small medial popliteal cyst. The visualized musculature is normal in bulk. IMPRESSION: 1. Deep radial tearing at the posterior horn of the medial meniscus near the posterior root attachment without meniscal extrusion. 2. 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 Mild grade 2 chondromalacia in the patellofemoral compartment. 3. No acute trabecular bone injury. Cruciate and collateral ligaments are intact. 4. Small joint effusion. Small medial popliteal cyst. Approved by: Seth Gan M.D. on 06/18/2025 at 21:52
== END ==
LOC: MRI 10:56
PROVIDERS: Family Provider Internal Medicine; PCP Internal Medicine; Referring Provider Orthopaedic Surgery; Visit Provider Orthopaedic Surgery
DX: M23.92 Unspecified internal derangement of left knee (principal); M25.562 Pain in left knee; S83.242A Other tear of medial meniscus, current injury, left knee, initial encounter; M22.42 Chondromalacia patellae, left knee; M25.462 Effusion, left knee; M71.22 Synovial cyst of popliteal space [Baker], left knee
CPT/HCPCS: 73721

== ENCOUNTER → 2025-07-22 07:51 | Outpatient (CLI) | payer MEDICARE, SELFPAY ==
[2024-05-18 09:31] VITALS: BMI 24.3
--- NOTE | 2025-07-22 08:13 | EKG_ITS ---
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
[2025-07-22 08:20] LABS: Add Manual Diff / Slide Review NO; Hematocrit 39.5 % (36-46); Hemoglobin 13.2 g/dL (12.0-16.0); Lymphocytes Absolute Auto 2800 /uL (1100-4500); Mean Corpuscular HGB Conc 33.4 % (30-36); Mean Corpuscular Hemoglobin 30.3 PG (26-34); Mean Corpuscular Volume 90.8 fL (80-100); Platelet Count 235 X10^3/uL (150-400)
[2025-07-22 08:30] LABS: Hemoglobin A1C% w Est Avg Glu 7.6 % (4.0-6.0)
[2025-07-22 08:42] LABS: Albumin 5.0 g/dL (3.5-5.0)
[2025-07-22 08:45] LABS: Alanine Aminotransferase 28 IU/L (<35); Albumin 4.9 g/dL (3.5-5.0); Albumin Globulin Ratio 1.5 (1.0-2.8); Alkaline Phosphatase 85 U/L (38-126); Blood Urea Nitrogen 16 mg/dL (7-17); Calcium 9.8 mg/dL (8.4-10.2); Carbon Dioxide 26 mmol/L (22-32); Chloride 101 mmol/L (98-107); Cholesterol 193 mg/dL (140-199); Estimated Glomerular Filt Rate > 60 mL/min (>60); Globulin 3.2 g/dL (1.7-4.1); Glucose 197 mg/dL (70-99); HDL Cholesterol 55 mg/dL (40-60); HEMOLYSIS < 15 (0-50); Potassium 4.3 mmol/L (3.4-5.1); Sodium 139 mmol/L (137-145); Total Protein 8.1 g/dL (6.3-8.2); Triglycerides 352 mg/dL (35-150)
[2025-07-22 08:52] LABS: Prealbumin 36.7 mg/dL (17.6-36.0)
[2025-07-22 09:02] LABS: Vitamin D 25 Hydroxy (D3) 43.7 ng/mL (30.0-100.0)
== END ==
PROVIDERS: Family Provider Internal Medicine; PCP Internal Medicine; Referring Provider Internal Medicine; Visit Provider Orthopaedic Surgery
DX: E11.22 Type 2 diabetes mellitus with diabetic chronic kidney disease (principal); E78.2 Mixed hyperlipidemia; N18.31 Chronic kidney disease, stage 3a; Z01.818 Encounter for other preprocedural examination
CPT/HCPCS: 36415; 80053; 80061; 82040; 82306; 83036; 84134; 85025; 93005

== ENCOUNTER → 2025-10-18 11:45 | Outpatient (CLI) | payer MEDICARE, SELFPAY ==
[2024-05-18 09:31] VITALS: BMI 24.3
[2025-10-18 13:17] LABS: Hemoglobin A1C% w Est Avg Glu 6.9 % (4.0-6.0)
[2025-10-18 13:34] LABS: Alanine Aminotransferase 18 IU/L (<35); Albumin 4.6 g/dL (3.5-5.0); Albumin Globulin Ratio 1.8 (1.0-2.8); Alkaline Phosphatase 76 U/L (38-126); Blood Urea Nitrogen 20 mg/dL (7-17); Calcium 9.0 mg/dL (8.4-10.2); Carbon Dioxide 25 mmol/L (22-32); Chloride 102 mmol/L (98-107); Estimated Glomerular Filt Rate > 60 mL/min (>60); Globulin 2.5 g/dL (1.7-4.1); Glucose 178 mg/dL (70-99); HEMOLYSIS < 15 (0-50); Potassium 4.3 mmol/L (3.4-5.1); Sodium 140 mmol/L (137-145); Total Protein 7.1 g/dL (6.3-8.2)
== END ==
PROVIDERS: PCP Internal Medicine; Referring Provider Internal Medicine; Visit Provider Internal Medicine
DX: E11.22 Type 2 diabetes mellitus with diabetic chronic kidney disease (principal); N18.31 Chronic kidney disease, stage 3a
CPT/HCPCS: 36415; 80053; 83036

== ENCOUNTER 2025-10-27 06:01 | Day surgery (SDC) | payer MEDICARE, SELFPAY ==
[2024-05-18 09:31] VITALS: BMI 24.3
[2025-10-27] MEDS: LACTATED RINGERS 1,000 ML 42 ML IV (06:51)
[2025-10-27 06:59] VITALS: BP 134/60; PULSE 82; RESP 16; TEMP 36.6; O2SAT 98
[2025-10-27] MEDS: INSULIN LISPRO 100 UNIT/ML 3ML VIAL SUBCUT (07:34)
--- NOTE | 2025-10-27 07:38 | PM.PREOP ---
Pre-operative Note COVID-19 COVID-19 status: Not tested Interval Note History & Physical reviewed/Exam performed by Physician: Yes Changes to H&P: No
--- NOTE | 2025-10-27 08:08 | SUR.OPER ---
Supine on padded OR bed, head on pillow, arms secured on padded arm boards at <90 degrees abduction, legs uncrossed, safety belt at thigh, tape over blanket over lower non-operative leg. Lateral thigh post in place on operative side per surgeon direction. Surgeon approved of final position prior to start of case.
[2025-10-27] MEDS: LACTATED RINGERS 1,000 ML 120 ML IV (08:15)
[2025-10-27] MEDS: SODIUM CHLORIDE IRRIG SOLUTION 3,000 ML, EPINEPHrine 3 MG IRR ×2 (08:18→08:20)
[2025-10-27 08:31] VITALS: BP 150/68; PULSE 99; RESP 14; TEMP 36.9; O2SAT 96
[2025-10-27 08:36] VITALS: BP 137/61; PULSE 104; RESP 23; O2SAT 96
[2025-10-27 08:40] VITALS: BP 139/62; PULSE 100; RESP 21; O2SAT 98
--- NOTE | 2025-10-27 08:40 | SUR.PHASEI ---
Blood sugar 220; notified anesthesia; no further orders
--- NOTE | 2025-10-27 08:42 | P.OP_ITS ---
Operative Date/Time/Diagnoses Date of procedure: 10/27/25 Time of procedure: 08:00 Pre-op diagnosis: Osteoarthritis of left knee and medial meniscus tear Post-op diagnosis: same Procedure & Clinicians Procedure: LEFT KNEE ARTHROSCOPY AND MENISCAL DEBRIDEMENT AND CHONDROPLASTY Same procedure(s) as scheduled: Yes Surgeon: Melani Gill Assisted?: Yes Agricultural Equipment Design Engineer: Josselyn Mckeon Anesthesia Type: General Operative Notes Findings: SEE BELOW Closure Type: primary Applied: none Estimated Blood Loss (mL): 1 Blood products transfused: none Tourniquet time (min): 18 Procedure in detail: Preoperative diagnosis: LEFT Medial meniscus tear and osteoarthritis Procedure performed: LEFT knee medial arthroscopic partial menisectomy and chondroplasty Postoperative diagnosis: left knee medial meniscus tear and osteoarthritis of the knee and chondrocalcinosis of meniscus Primary Surgeon: Melani Gill, DO Agricultural Equipment Design Engineer:Chun Jerome Anesthesia: General LMA EBL: 5 ml Tourniquet: ?19 minutes @ 250 mmHg Implants: None Indication For Surgery: ?See Pre-op H&P Examination Under Anesthesia: ROM equal to the contralateral side. Grade I Patsy Stable to varus and valgus stressing at 0 & 30 degrees. No mechanical sensations Diagnostic Arthroscopy: Loose bodies: None Synovium: exuberant fat pad Patella cartilage: intact? Trochlear cartilage: Grade II chondromalacia? Medial femoral condyle cartilage: Grade IV chondromalacia 5 x10 mm Medial tibial plateau cartilage: Grade III chondromalacia Medial meniscus: ?Degenerative tear and chondrocalcinosis ACL: intact PCL: intact Lateral femoral condyle cartilage: intact Lateral tibial plateau cartilage: intact Lateral meniscus: intact Procedure in Detail: The patient was met in the pre-operative hold area. Consent was verified and operative extremity was signed. The patient was brought back to the operating room. The patient was placed supine position on the operating table. A general anesthetic was administered. A well-padded tourniquet was placed on the thigh. An exam under anesthesia was performed with the above findings.? The lower extremity was then prepped and draped in the usual sterile fashion. A timeout was performed per protocol. All members of the operating team were in agreement, and we proceeded. The Esmarch was used to exsanguinate the limb and the tourniquet was inflated. An 11 blade scalpel was used to make an anterolateral arthroscopic portal. The arthroscope was introduced into the knee and the anteromedial portal was created under direct visualization using needle localization. A diagnostic arthroscopy was performed with the above-stated findings.? The meniscus was debrided and the cartilage flaps debrided. The wounds were irrigated.? The incisions were closed with Nylon sutures. ?A sterile dressing was applied. The patient was awakened and transferred to the recovery room in stable condition.? Twenty cc of 0.25% Marcaine was infiltrated at the end of the case. Postoperative Plan: Same day discharge Weightbearing as tolerated. Remove dressing in [address]aids over incision sites. Physical therapy to start after surgery. Follow up at 2 weeks for suture removal. Complications: none
[2025-10-27] MEDS: ONDANSETRON 4 MG/2 ML INJ IV (08:51)
== END 2025-10-27 09:19 | disposition home or self-care (01) ==
PROVIDERS: PCP Internal Medicine; Referring Provider Orthopaedic Surgery; Visit Provider Orthopaedic Surgery
PROC: (CPT 29870; principal; 2025-10-27 07:45)
DX: S83.242A Other tear of medial meniscus, current injury, left knee, initial encounter (principal); M17.12 Unilateral primary osteoarthritis, left knee; M94.262 Chondromalacia, left knee
CPT/HCPCS: 29881; 82962; J0165; J0689; J1100; J1815; J1885; J2250; J2405; J2704; J3010; J7120